=== PATIENT | male | born 1945 | race Caucasian/White ===

== ENCOUNTER → 2016-04-20 | Outpatient (CLI) | payer OTHER ==
[~2016-04-20] MED LIST: ASPI81TA28 PO; ATOR-26 PO; BIOFTAB30 PO; CARV12.5 PO; CITA20TA4 PO; INSU70IN2 SC; LEVO100T7 PO; LOSA100T26 PO; NTRSL3 UT
[2016-04-20 13:17] LABS: HEMATOCRIT 39.9 % (42-52); MEAN CELL VOLUME 86.4 fL (80-100); MEAN CORPUSCULAR HEMOGLOBIN 28.6 pg (25-34); MEAN CORPUSCULAR HGB CONC 33.1 g/dl (32-36); MEAN PLATELET VOLUME 10.9 fL (7.4-10.4); PLATELET COUNT 200 K/uL (130-400); RED BLOOD COUNT 4.62 M/uL (4.7-6.1); WHITE BLOOD COUNT 11.91 K/uL (4.8-10.8)
[2016-04-20 13:34] LABS: URINE APPEARANCE CLEAR (CLEAR); URINE BILIRUBIN NEG (NEG); URINE COLOR YELLOW; URINE EPITHELIAL CELL AUTO 0-5 /lpf (0-5); URINE NITRITE NEG (NEG); URINE PH 5.5 (4.5-7.5); URINE SPECIFIC GRAVITY 1.021 (1.000-1.030); UROBILINOGEN NEG (NEG)
[2016-04-20 13:39] LABS: MANUAL MICROSCOPIC REQUIRED? NO; REVIEW REQ? NO
[2016-04-20 13:51] LABS: URINE PROTIEN/CREAT RATIO 0.4 (0-0.2); URINE TOTAL PROTEIN 46.2 mg/dl (0-11.9)
[2016-04-20 14:25] LABS: BLOOD UREA NITROGEN 27 mg/dl (7-18); BUN/CREATININE RATIO 17.1 (10-20); CALCIUM 8.3 mg/dl (8.5-10.1); CARBON DIOXIDE 27 mmol/L (21-32); CHLORIDE 102 mmol/L (98-107); GLUCOSE 329 mg/dl (70-99); SODIUM 138 mmol/L (136-145)
[2016-04-20 14:33] LABS: PHOSPHORUS 1.9 mg/dl (2.5-4.9)
[2016-04-20 14:41] LABS: BETA-HYDROXYBUTYRATE 0.99 mg/dL (0.2-2.81)
== END | disposition home or self-care (01) ==
LOC: C.LABMFLN 10:39
PROVIDERS: ATTEND Internal Medicine Endocrinology, Diabetes & Metabolism
DX: E03.9 Hypothyroidism, unspecified (principal); D64.9 Anemia, unspecified; I12.9 Hypertensive chronic kidney disease with stage 1 through stage 4 chronic kidney disease, or unspecified chronic kidney disease; N18.3 Chronic kidney disease, stage 3 (moderate); R80.9 Proteinuria, unspecified; E55.9 Vitamin D deficiency, unspecified; N25.81 Secondary hyperparathyroidism of renal origin

== ENCOUNTER → 2016-07-08 | Outpatient (CLI) | payer OTHER ==
[~2016-07-08] MED LIST changes: -LOSA100T26 PO; +LOSA100T33 PO
[2016-07-08 17:42] LABS: BLOOD UREA NITROGEN 22 mg/dl (7-18); BUN/CREATININE RATIO 12.9 (10-20); CALCIUM 8.7 mg/dl (8.5-10.1); CARBON DIOXIDE 27 mmol/L (21-32); CHLORIDE 106 mmol/L (98-107); GLUCOSE 275 mg/dl (70-99); POTASSIUM 3.7 mmol/L (3.5-5.1); SODIUM 140 mmol/L (136-145)
[2016-07-08 17:53] LABS: CHOLESTEROL 119 mg/dl (0-200); CHOLESTEROL/HDL RATIO 2.9; HDL CHOLESTEROL 41 mg/dl; LDL CHOLESTEROL CALCULATED 55 mg/dl; TRIGLYCERIDES 116 mg/dl (0-150); VERY LOW DENSITY LIPOPROT CALC 23 mg/dl
[2016-07-09 05:56] LABS: ESTIMATED AVERAGE GLUCOSE 214 mg/dl; HA1C FLAG Normal (Normal)
== END | disposition home or self-care (01) ==
LOC: C.LABPVFM 15:21
PROVIDERS: ATTEND Family Medicine
DX: E11.21 Type 2 diabetes mellitus with diabetic nephropathy (principal); M21.371 Foot drop, right foot; E78.5 Hyperlipidemia, unspecified; E03.9 Hypothyroidism, unspecified

== ENCOUNTER → 2016-07-16 | Outpatient (CLI) | payer OTHER ==
--- NOTE | 2016-07-16 08:58 | DIAGNOSTIC IMAGING REPORT ---
DOUBLE CONTRAST UPPER GI SERIES CLINICAL HISTORY: Dysphagia. COMPARISON STUDY: No priors. TECHNIQUE: A standard air contrast upper GI series was performed. Spot images of the esophagus and stomach were obtained in multiple obliquities both upright and prone. FINDINGS: The patient swallowed barium without difficulty. The esophagus is structurally normal without evidence of intrinsic or extrinsic mass. The esophageal mucosal pattern is normal. No gastroesophageal reflux was elicited by having the patient perform the Valsalva maneuver. The gastroesophageal junction distends normally. Pacemaker leads are noted. The stomach is normal in configuration and demonstrates normal distensibility. No mass or ulceration is identified. There was no evidence of gastritis. The duodenal bulb and sweep are unremarkable. Fluoroscopy time: 2.5 minutes. Fluoroscopic images: 27 IMPRESSION: Normal fluoroscopic upper GI assessment. Electronically signed by: Leif Olsen M.D. 07/16/2016 8:56 AM Dictated Date/Time: 07/16/2016 8:55 AM
== END | disposition home or self-care (01) ==
LOC: C.RAD 07:49
PROVIDERS: ATTEND Family Medicine
DX: R13.10 Dysphagia, unspecified (principal)

== ENCOUNTER → 2016-10-09 | Outpatient (CLI) | payer OTHER ==
[~2016-10-09] MED LIST changes: +LOSA100T26 PO; -LOSA100T33 PO
[2016-10-09 13:14] LABS: HEMATOCRIT 39.1 % (42-52); MEAN CELL VOLUME 87.7 fL (80-100); MEAN CORPUSCULAR HEMOGLOBIN 29.4 pg (25-34); MEAN CORPUSCULAR HGB CONC 33.5 g/dl (32-36); MEAN PLATELET VOLUME 11.3 fL (7.4-10.4); PLATELET COUNT 175 K/uL (130-400); RED BLOOD COUNT 4.46 M/uL (4.7-6.1); WHITE BLOOD COUNT 9.64 K/uL (4.8-10.8)
[2016-10-09 13:38] LABS: BLOOD UREA NITROGEN 35 mg/dl (7-18); BUN/CREATININE RATIO 11.7 (10-20); CALCIUM 8.4 mg/dl (8.5-10.1); CARBON DIOXIDE 25 mmol/L (21-32); CHLORIDE 105 mmol/L (98-107); GLUCOSE 149 mg/dl (70-99); PHOSPHORUS 3.2 mg/dl (2.5-4.9); POTASSIUM 3.7 mmol/L (3.5-5.1); SODIUM 139 mmol/L (136-145)
== END | disposition home or self-care (01) ==
LOC: C.LABMFLN 09:03
PROVIDERS: ATTEND Internal Medicine Nephrology
DX: I12.9 Hypertensive chronic kidney disease with stage 1 through stage 4 chronic kidney disease, or unspecified chronic kidney disease (principal); D64.9 Anemia, unspecified; N18.3 Chronic kidney disease, stage 3 (moderate); R80.9 Proteinuria, unspecified; E55.9 Vitamin D deficiency, unspecified

== ENCOUNTER → 2016-10-12 | Outpatient (CLI) | payer OTHER ==
[2016-10-12 13:43] LABS: URINE PROTIEN/CREAT RATIO 0.5 (0-0.2); URINE TOTAL PROTEIN 33.9 mg/dl (0-11.9)
[2016-10-12 14:12] LABS: URINE APPEARANCE CLEAR (CLEAR); URINE BILIRUBIN NEG (NEG); URINE COLOR YELLOW; URINE NITRITE NEG (NEG); URINE PH 5.5 (4.5-7.5); URINE SPECIFIC GRAVITY 1.014 (1.000-1.030); UROBILINOGEN NEG (NEG)
[2016-10-12 14:18] LABS: MANUAL MICROSCOPIC REQUIRED? NO; REVIEW REQ? NO
== END | disposition home or self-care (01) ==
LOC: C.LABMFLN 08:29
PROVIDERS: ATTEND Internal Medicine Nephrology
DX: I12.9 Hypertensive chronic kidney disease with stage 1 through stage 4 chronic kidney disease, or unspecified chronic kidney disease (principal); D64.9 Anemia, unspecified; N18.3 Chronic kidney disease, stage 3 (moderate); R80.9 Proteinuria, unspecified; E55.9 Vitamin D deficiency, unspecified

== ENCOUNTER → 2016-10-15 | Outpatient (CLI) | payer OTHER ==
[2016-10-15 16:17] LABS: CHOLESTEROL/HDL RATIO 3.1; THYROID STIMULATING HORMONE 1.44 uIu/ml (0.300-4.500)
[2016-10-15 17:16] LABS: ESTIMATED AVERAGE GLUCOSE 246 mg/dl; HA1C FLAG Normal (Normal)
== END | disposition home or self-care (01) ==
LOC: C.LAB1850 14:43
PROVIDERS: ATTEND Physician Assistant
DX: E11.9 Type 2 diabetes mellitus without complications (principal)

== ENCOUNTER → 2016-12-25 | Outpatient (CLI) | payer OTHER ==
[2016-12-25 17:57] LABS: BLOOD UREA NITROGEN 32 mg/dl (7-18); BUN/CREATININE RATIO 13.8 (10-20); CALCIUM 7.9 mg/dl (8.5-10.1); CARBON DIOXIDE 26 mmol/L (21-32); CHLORIDE 105 mmol/L (98-107); GLUCOSE 191 mg/dl (70-99); POTASSIUM 3.5 mmol/L (3.5-5.1); SODIUM 139 mmol/L (136-145)
[2016-12-25 17:58] LABS: PHOSPHORUS 2.6 mg/dl (2.5-4.9)
== END | disposition home or self-care (01) ==
LOC: C.LABMFLN 12:54
PROVIDERS: ATTEND Internal Medicine Nephrology
DX: I10 Essential (primary) hypertension (principal); D64.9 Anemia, unspecified; R80.9 Proteinuria, unspecified; N25.81 Secondary hyperparathyroidism of renal origin; R31.9 Hematuria, unspecified

== ENCOUNTER → 2017-01-21 | Outpatient (CLI) | payer OTHER ==
--- NOTE | 2017-01-21 10:26 | DIAGNOSTIC IMAGING REPORT ---
(RENAL)RETROPERITON COMP HISTORY: 71 years-old Male I10 [id number] Stage III chronic kidney disea COMPARISON: Renal ultrasound 03/14/2013 TECHNIQUE: Multiple real-time sonographic images of the kidneys and urinary bladder were obtained assessing grayscale appearance and color flow FINDINGS: Study is limited secondary to body habitus. The right kidney measures 10.8 x 6.1 x 5.5 cm and is unremarkable as seen without hydronephrosis, renal calculi or focal mass. There is probable fatty infiltration of the liver is incidentally noted. Left kidney measures 11.1 x 7.4 x 5.0 cm and is also unremarkable without hydronephrosis, renal calculi or focal mass lesions identified.. Urinary bladder is unremarkable, not fully distended. IMPRESSION: 1. Limited study secondary to body habitus. 2. Kidneys and urinary bladder appear to be within normal limits without renal calculi or hydronephrosis. The above report was generated using voice recognition software. It may contain grammatical, syntax or spelling errors. Electronically signed by: Darshan Francis M.D. 01/21/2017 10:25 AM Dictated Date/Time: 01/21/2017 10:23 AM
== END | disposition home or self-care (01) ==
LOC: C.ULTR 09:24
PROVIDERS: ATTEND Internal Medicine Nephrology
DX: E55.9 Vitamin D deficiency, unspecified (principal); D64.9 Anemia, unspecified; I12.9 Hypertensive chronic kidney disease with stage 1 through stage 4 chronic kidney disease, or unspecified chronic kidney disease; N18.3 Chronic kidney disease, stage 3 (moderate); N25.81 Secondary hyperparathyroidism of renal origin; R80.9 Proteinuria, unspecified

== ENCOUNTER → 2017-02-16 | Outpatient (CLI) | payer OTHER ==
[~2017-02-16] MED LIST changes: -LOSA100T26 PO; +LOSA100T33 PO
[2017-02-16 18:00] LABS: HEMATOCRIT 36.7 % (42-52); MEAN CELL VOLUME 87.2 fL (80-100); MEAN CORPUSCULAR HEMOGLOBIN 29.2 pg (25-34); MEAN CORPUSCULAR HGB CONC 33.5 g/dl (32-36); MEAN PLATELET VOLUME 11.5 fL (7.4-10.4); PLATELET COUNT 213 K/uL (130-400); RED BLOOD COUNT 4.21 M/uL (4.7-6.1); WHITE BLOOD COUNT 8.27 K/uL (4.8-10.8)
[2017-02-16 18:07] LABS: URINE APPEARANCE CLEAR (CLEAR); URINE BILIRUBIN NEG (NEG); URINE COLOR YELLOW; URINE EPITHELIAL CELL AUTO 0-5 /lpf (0-5); URINE NITRITE NEG (NEG); URINE PH 5.5 (4.5-7.5); UROBILINOGEN NEG (NEG)
[2017-02-16 18:13] LABS: CREATININE, URINE 84.4 mg/dl; URINE PROTIEN/CREAT RATIO 0.3 (0-0.2); URINE TOTAL PROTEIN 21.9 mg/dl (0-11.9)
[2017-02-16 18:15] LABS: MANUAL MICROSCOPIC REQUIRED? NO; REVIEW REQ? NO
[2017-02-16 18:47] LABS: BLOOD UREA NITROGEN 23 mg/dl (7-18); BUN/CREATININE RATIO 13.2 (10-20); CALCIUM 8.3 mg/dl (8.5-10.1); CARBON DIOXIDE 26 mmol/L (21-32); CHLORIDE 102 mmol/L (98-107); CREATININE 1.78 mg/dl (0.60-1.40); GLUCOSE 365 mg/dl (70-99); MAGNESIUM 1.3 mg/dl (1.8-2.4); PHOSPHORUS 2.7 mg/dl (2.5-4.9); POTASSIUM 3.5 mmol/L (3.5-5.1); SODIUM 137 mmol/L (136-145)
[2017-02-16 19:00] LABS: BETA-HYDROXYBUTYRATE 0.94 mg/dL (0.2-2.81)
[2017-02-17 06:02] LABS: ESTIMATED AVERAGE GLUCOSE 237 mg/dl; HA1C FLAG Normal (Normal)
== END | disposition home or self-care (01) ==
LOC: C.LABMFLN 12:13
PROVIDERS: ATTEND Internal Medicine Nephrology
DX: E11.9 Type 2 diabetes mellitus without complications (principal); I12.9 Hypertensive chronic kidney disease with stage 1 through stage 4 chronic kidney disease, or unspecified chronic kidney disease; D64.9 Anemia, unspecified; N18.3 Chronic kidney disease, stage 3 (moderate); N25.81 Secondary hyperparathyroidism of renal origin; R80.9 Proteinuria, unspecified; E55.9 Vitamin D deficiency, unspecified

== ENCOUNTER → 2017-06-11 | Outpatient (CLI) | payer OTHER | END | disposition home or self-care (01) | LOC: C.LABMFLN 13:58 | PROVIDERS: ATTEND Physician Assistant | DX: E11.9 Type 2 diabetes mellitus without complications (principal) ==

== ENCOUNTER → 2017-08-12 | Outpatient (CLI) | payer OTHER ==
[2017-08-12 17:51] LABS: HEMATOCRIT 37.7 % (42-52); HEMOGLOBIN 12.1 g/dL (14.0-18.0); MEAN CELL VOLUME 86.7 fL (80-100); MEAN CORPUSCULAR HEMOGLOBIN 27.8 pg (25-34); MEAN CORPUSCULAR HGB CONC 32.1 g/dl (32-36); MEAN PLATELET VOLUME 10.3 fL (7.4-10.4); PLATELET COUNT 230 K/uL (130-400); RED CELL DISTRIBUTION WIDTH CV 13.5 % (11.5-14.5); WHITE BLOOD COUNT 9.06 K/uL (4.8-10.8)
[2017-08-12 18:36] LABS: ALBUMIN 3.2 gm/dl (3.4-5.0); BLOOD UREA NITROGEN 27 mg/dl (7-18); CALCIUM 8.5 mg/dl (8.5-10.1); CARBON DIOXIDE 28 mmol/L (21-32); CREATININE 1.71 mg/dl (0.60-1.40); GLUCOSE 110 mg/dl (70-99); PHOSPHORUS 2.9 mg/dl (2.5-4.9); POTASSIUM 3.5 mmol/L (3.5-5.1); SODIUM 140 mmol/L (136-145)
== END | disposition home or self-care (01) ==
LOC: C.LABMFLN 13:29
PROVIDERS: ATTEND Internal Medicine Nephrology
DX: I12.9 Hypertensive chronic kidney disease with stage 1 through stage 4 chronic kidney disease, or unspecified chronic kidney disease (principal); D64.9 Anemia, unspecified; N18.3 Chronic kidney disease, stage 3 (moderate); N25.81 Secondary hyperparathyroidism of renal origin; R31.9 Hematuria, unspecified; E55.9 Vitamin D deficiency, unspecified

== ENCOUNTER → 2017-08-20 | Outpatient (CLI) | payer OTHER | END | disposition home or self-care (01) | LOC: C.LAB1850 15:07 | PROVIDERS: ATTEND Internal Medicine Nephrology | DX: I12.9 Hypertensive chronic kidney disease with stage 1 through stage 4 chronic kidney disease, or unspecified chronic kidney disease (principal); N18.3 Chronic kidney disease, stage 3 (moderate); D64.9 Anemia, unspecified; N25.81 Secondary hyperparathyroidism of renal origin; R31.9 Hematuria, unspecified; E55.9 Vitamin D deficiency, unspecified ==

== ENCOUNTER 2021-05-28 16:48 | Inpatient (IN) ==
[2021-05-28] MEDS ORDERED: NovoLIN-R INSULIN PER UNIT CHARGE IV STA ×2 (17:33→22:13)
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
[2021-05-28 17:46] LABS: Basophils # (auto) 0.02 K/uL (0-0.2); Basophils % (auto) 0.2 %; Eosinophils % (auto) 3.5 %; Hematocrit (blood only) 39.8 % (42-52); Hemoglobin 13.3 g/dL (14.0-18.0); Immature Granulocytes # (auto) 0.02 K/uL (0.00-0.02); Immature Granulocytes % (auto) 0.2 %; Lymphocytes % (auto) 13.9 %; Mean Corpuscular Hemoglobin 29.2 pg (25-34); Mean Corpuscular Hgb Conc 33.4 g/dL (32-36); Mean Corpuscular Volume 87.3 fL (80-100); Mean Platelet Volume 11.6 fL (7.4-10.4); Monocytes # (auto) 0.45 K/uL (0.11-0.59); Monocytes % (auto) 5.2 %; Neutrophils # (auto) 6.67 K/uL (1.4-6.5); Platelet Count 237 K/uL (130-400); RDW Coefficient of Variation 13.3 % (11.5-14.5); RDW Standard Deviation 42.3 fL (36.4-46.3); Red Blood Count 4.56 M/uL (4.7-6.1); White Blood Count 8.66 K/uL (4.8-10.8)
[2021-05-28 18:07] LABS: Troponin I < 0.03 ng/ml (0-0.04)
[2021-05-28] MEDS: SODIUM CHLORIDE 0.9% 500 ML IV SCH (18:14)
[2021-05-28 18:16] LABS: iSTAT Creatinine 2.6 mg/dl (0.6-1.3); iSTAT Hemoglobin 12.6 g/dl (14.0-18.0); iSTAT Ionized Calcium 1.27 mmol/l (1.12-1.32); iSTAT Potassium 4.3 mmol/L (3.3-5.0)
[2021-05-28 18:30] LABS: Alanine Aminotransferase 15 U/L (7-52); Albumin Globulin Ratio 1.3 (0.9-2); Alkaline Phosphatase 91 U/L (34-104); Anion Gap 15 (3-11); Aspartate Aminotransferase 17 U/L (13-39); BUN Creatinine Ratio 13.8 (10-20); Bilirubin,Total 0.5 mg/dl (0.2-1.0); Blood Urea Nitrogen 40 mg/dl (6-23); Calcium 9.9 mg/dl (8.5-10.1); Carbon Dioxide 21 mmol/L (21-32); Chloride 96 mmol/L (98-107); Creatinine Clr Calc Pharmacy 32.1 ml/min; Est GFR (African American) 23.6 ml/min; Est GFR (Non-African American) 20.4 ml/min; Globulin 3.2 gm/dl (2.5-4.0); Glucose 645 mg/dl (70-99(Fasting)); Potassium 4.2 mmol/L (3.5-5.1); Sodium 132 mmol/L (136-145); Total Protein 7.2 gm/dl (6.0-8.3)
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
[2021-05-28 20:21] LABS: Base Excess VBG -0.7 mEq/L; HCO3 VBG 26 mmol/L; Oxygen Saturation VBG < 60.0 %; PCO2 VBG 51 mmHg (38-50); PO2 VBG 28 mmHg; pH VBG 7.33 (7.36-7.41)
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
[2021-05-28] MEDS ORDERED: NovoLIN-R INSULIN PER UNIT CHARGE ONE (22:23)
[2021-05-28] MEDS ORDERED: DC ALL PREVIOUSLY ORDERED DIABETES MEDS ONE (23:19)
[2021-05-28] MEDS ORDERED: LIDOCAINE 5% 1 PATCH TD PRN (23:19)
[2021-05-28] MEDS ORDERED: GLUCOSE 40% GEL 15 GM TUBE PO PRN (23:19)
[2021-05-28] MEDS ORDERED: POLYETHYLENE (MIRALAX) 17 GM PACK PO PRN (23:19)
[2021-05-28] MEDS ORDERED: GLUCOSE 10 TABS/TUBE PO PRN (23:19)
[2021-05-28] MEDS ORDERED: PHARMACY GLYCEMIC MGMT CONSULT PRN (23:19)
[2021-05-28] MEDS ORDERED: GLUCAGON FOR INJ 1 MG VIAL SQ PRN (23:19)
[2021-05-28] MEDS ORDERED: CARBOHYDRATES FOR HYPOGLYCEMIA PO PRN (23:19)
[2021-05-28] MEDS ORDERED: PANTOprazole 40 MG TAB PO PRN (23:19)
[2021-05-28] MEDS ORDERED: DEXTROSE 50% 50 ML SYRINGE IV PRN (23:19)
[2021-05-28] MEDS ORDERED: NITROGLYCERIN SL 0.4 MG/TAB TAB SL PRN (23:38)
[2021-05-28] MEDS ORDERED: INSULIN GLARGINE SOLOSTAR 100 UNITS/ML 3 ML PEN SC ONE (23:45)
[2021-05-29] MEDS: NITROGLYCERIN SL 0.4 MG/TAB TAB SL SCH ×2 (00:01)
[2021-05-29] MEDS: ACETAMINOPHEN 325 MG TAB PO PRN ×3 (00:11→09:38)
[2021-05-29] MEDS: INSULIN ASPART PER UNIT SC SCH ×6 (00:15→20:41)
[2021-05-29] MEDS: SODIUM CHLORIDE 0.9% 1,000 ML IV SCH ×3 (00:15→23:45)
[2021-05-29] MEDS: SODIUM CHLORIDE 0.9% 500 ML IV SCH (00:39)
[2021-05-29] MEDS: LEVOTHYROXINE SODIUM 100 MCG TABLET PO SCH (04:24)
[2021-05-29 07:32] LABS: Basophils # (auto) 0.02 K/uL (0-0.2); Basophils % (auto) 0.2 %; Eosinophils # (auto) 0.11 K/uL (0-0.5); Eosinophils % (auto) 1.2 %; Hematocrit (blood only) 33.9 % (42-52); Hemoglobin 11.7 g/dL (14.0-18.0); Immature Granulocytes # (auto) 0.02 K/uL (0.00-0.02); Immature Granulocytes % (auto) 0.2 %; Lymphocytes # (auto) 1.16 K/uL (1.2-3.4); Lymphocytes % (auto) 12.4 %; Mean Corpuscular Hemoglobin 29.4 pg (25-34); Mean Corpuscular Hgb Conc 34.5 g/dL (32-36); Mean Corpuscular Volume 85.2 fL (80-100); Mean Platelet Volume 10.3 fL (7.4-10.4); Monocytes # (auto) 0.57 K/uL (0.11-0.59); Monocytes % (auto) 6.1 %; Neutrophils # (auto) 7.48 K/uL (1.4-6.5); Neutrophils % (auto) 79.9 %; Platelet Count 183 K/uL (130-400); RDW Coefficient of Variation 13.3 % (11.5-14.5); RDW Standard Deviation 41.2 fL (36.4-46.3); Red Blood Count 3.98 M/uL (4.7-6.1); White Blood Count 9.36 K/uL (4.8-10.8)
[2021-05-29 07:55] LABS: BUN Creatinine Ratio 16.9 (10-20); Calcium 9.5 mg/dl (8.5-10.1); Creatinine Clr Calc Pharmacy 40.3 ml/min; Est GFR (African American) 33.2 ml/min; Est GFR (Non-African American) 28.6 ml/min; Potassium 3.2 mmol/L (3.5-5.1)
--- NOTE | 2021-05-29 08:19 | Ultrasound Report ---
BILATERAL CAROTID DOPPLER STUDY HISTORY: syncope COMPARISON: None. TECHNIQUE: Real-time, grayscale, and color Doppler sonography of the carotid arteries was performed. Imaging reviewed in the transverse and longitudinal planes. All measurements were calculated based on NASCET criteria. FINDINGS: Antegrade flow is seen in the bilateral vertebral arteries. The brachial pressures are hemodynamically similar. Minimal calcified plaque within the bilateral carotid bifurcations. The peak systolic velocity within the right ICA is 77 cm/s. The right systolic ratio is 1.3. The peak systolic velocity within the left ICA is 68 cm/s. The left systolic ratio is 0.7. IMPRESSION: No hemodynamically significant stenosis seen within the carotid arteries. ACT 112: Negative or not required by law. Electronically signed by: Damon Davies M.D. 05/29/2021 8:18 AM
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
[2021-05-29] MEDS: ASPIRIN 81 MG ECTAB PO SCH (09:11)
[2021-05-29] MEDS: ATORVASTATIN 40 MG TAB PO SCH (09:11)
[2021-05-29] MEDS: AMOXICILLIN 500 MG CAP PO SCH ×3 (09:11→20:49)
[2021-05-29] MEDS: SERTRALINE HCL 50 MG TABLET PO SCH (09:12)
[2021-05-29] MEDS: MAGNESIUM OXIDE 400 MG TAB PO SCH ×2 (09:12→20:48)
[2021-05-29] MEDS: TERAZOSIN HCL 5 MG CAP PO SCH ×2 (09:12→20:50)
[2021-05-29] MEDS: CALCITRIOL 0.25 MCG CAPSULE PO SCH (09:12)
[2021-05-29] MEDS: INSULIN GLARGINE SOLOSTAR 100 UNITS/ML 3 ML PEN SC SCH (09:13)
[2021-05-29] MEDS: carvediloL 12.5 MG TAB PO SCH ×2 (09:13→20:48)
[2021-05-29] MEDS: ENOXAPARIN INJ 40 MG/0.4 ML SYR SQ SCH (09:28)
[2021-05-29] MEDS: POTASSIUM CHLORIDE CRTAB 20 MEQ TABCR PO SCH (09:28)
--- NOTE | 2021-05-29 11:22 | Electrocardiogram Report ---
Test Reason : Blood Pressure : / mmHG Vent. Rate : 079 BPM Atrial Rate : 079 BPM P-R Int : 188 ms QRS Dur : 210 ms QT Int : 478 ms P-R-T Axes : 023 -82 080 degrees QTc Int : 548 ms Atrial-sensed ventricular-paced rhythm Abnormal ECG No previous ECGs available Confirmed by River Penny ([id number]) on 05/29/2021 11:21:46 AM Referred By: REFERRED SELF Confirmed By:Lucas Penny
--- NOTE | 2021-05-29 13:18 | XCELERA ---
[id number] \\[id number]_[id number]}___[id number]
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
--- NOTE | 2021-05-29 19:13 | Billing Data ---
Date of Service May 28, 2021 Coding Level of Care Code 19362 Initial Inpt Care Lvl 3
[2021-05-29] MEDS ORDERED: GABAPENTIN 100 MG CAP PO SCH (21:00)
[2021-05-29] MEDS ORDERED: INSULIN GLARGINE SOLOSTAR 100 UNITS/ML 3 ML PEN SC SCH (21:00)
[2021-05-30] MEDS: ACETAMINOPHEN 325 MG TAB PO PRN (00:18)
[2021-05-30] MEDS: LEVOTHYROXINE SODIUM 100 MCG TABLET PO SCH (06:13)
[2021-05-30 06:35] LABS: Estimated Average Glucose 301 mg/dl; Hemoglobin A1C 12.1 % (4.5-5.6)
[2021-05-30 06:56] LABS: BUN Creatinine Ratio 16.7 (10-20); Calcium 9.3 mg/dl (8.5-10.1); Creatinine Clr Calc Pharmacy 40.9 ml/min; Est GFR (African American) 33.7 ml/min; Est GFR (Non-African American) 29.1 ml/min; Potassium 3.5 mmol/L (3.5-5.1)
[2021-05-30] MEDS: AMOXICILLIN 500 MG CAP PO SCH ×2 (08:53→13:47)
[2021-05-30] MEDS: POTASSIUM CHLORIDE CRTAB 20 MEQ TABCR PO SCH (08:53)
[2021-05-30] MEDS: ASPIRIN 81 MG ECTAB PO SCH (08:53)
[2021-05-30] MEDS: carvediloL 12.5 MG TAB PO SCH (08:54)
[2021-05-30] MEDS: MAGNESIUM OXIDE 400 MG TAB PO SCH (08:54)
[2021-05-30] MEDS: ATORVASTATIN 40 MG TAB PO SCH (08:54)
[2021-05-30] MEDS: SERTRALINE HCL 50 MG TABLET PO SCH (08:54)
[2021-05-30] MEDS: CALCITRIOL 0.25 MCG CAPSULE PO SCH (08:55)
[2021-05-30] MEDS: INSULIN GLARGINE SOLOSTAR 100 UNITS/ML 3 ML PEN SC SCH (08:56)
[2021-05-30] MEDS: INSULIN ASPART PER UNIT SC SCH ×2 (08:56→12:11)
[2021-05-30] MEDS: ENOXAPARIN INJ 40 MG/0.4 ML SYR SQ SCH (08:57)
[2021-05-30] MEDS: DICLOFENAC SOD 1% GEL 100 GM TUBE EXT SCH ×2 (09:00→12:11)
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
[2021-05-30] MEDS: SODIUM CHLORIDE 0.9% 1,000 ML IV SCH (13:43)
== END 2021-05-30 14:42 | disposition home health service (06) | DRG 312 ==
LOC: ED 16:48 → SUATTDRO 21:43 → 2N 21:43
DX: Z98.890 Other specified postprocedural states; Z87.891 Personal history of nicotine dependence; E11.22 Type 2 diabetes mellitus with diabetic chronic kidney disease; E78.5 Hyperlipidemia, unspecified; N18.30 Chronic kidney disease, stage 3 unspecified; R07.81 Pleurodynia; Z79.890 Hormone replacement therapy; K08.409 Partial loss of teeth, unspecified cause, unspecified class; Z63.4 Disappearance and death of family member; Z91.14 Patient's other noncompliance with medication regimen; E11.65 Type 2 diabetes mellitus with hyperglycemia; Z79.82 Long term (current) use of aspirin; Z79.2 Long term (current) use of antibiotics; R91.8 Other nonspecific abnormal finding of lung field; Z88.5 Allergy status to narcotic agent; Z20.822 Contact with and (suspected) exposure to COVID-19; Z88.1 Allergy status to other antibiotic agents; V47.0XXA Car driver injured in collision with fixed or stationary object in nontraffic accident, initial encounter; N17.9 Acute kidney failure, unspecified; G89.11 Acute pain due to trauma; Y92.410 Unspecified street and highway as the place of occurrence of the external cause; F32.9 Major depressive disorder, single episode, unspecified; T38.3X6A Underdosing of insulin and oral hypoglycemic [antidiabetic] drugs, initial encounter; Z95.0 Presence of cardiac pacemaker; Z79.4 Long term (current) use of insulin; I50.9 Heart failure, unspecified; Z86.73 Personal history of transient ischemic attack (TIA), and cerebral infarction without residual deficits; I13.0 Hypertensive heart and chronic kidney disease with heart failure and stage 1 through stage 4 chronic kidney disease, or unspecified chronic kidney disease; R55 Syncope and collapse; Z79.899 Other long term (current) drug therapy; E03.9 Hypothyroidism, unspecified; D63.1 Anemia in chronic kidney disease; Z91.128 Patient's intentional underdosing of medication regimen for other reason

== ENCOUNTER 2023-12-10 17:46 | Inpatient (IN) ==
[2023-12-10 19:43] LABS: Basophils # (auto) 0.05 K/uL (0.00-0.20); Basophils % (auto) 0.3 %; Eosinophils # (auto) 0.44 K/uL (0.00-0.50); Eosinophils % (auto) 2.4 %; Hematocrit (blood only) 37.8 % (42.0-52.0); Hemoglobin 12.1 g/dl (14.0-18.0); Immature Granulocytes # (auto) 0.13 K/uL (0.01-0.20); Immature Granulocytes % (auto) 0.7 %; Lymphocytes # (auto) 0.73 K/uL (1.20-3.40); Mean Corpuscular Hemoglobin 27.1 pg (25.0-34.0); Mean Corpuscular Volume 84.6 fL (80.0-100.0); Mean Platelet Volume 10.4 fL (9.4-12.4); Monocytes # (auto) 1.02 K/uL (0.11-0.59); Monocytes % (auto) 5.6 %; Neutrophils # (auto) 15.98 K/uL (1.40-6.50); Platelet Count 266 K/uL (130-400); RDW Coefficient of Variation 13.8 % (11.5-14.5); RDW Standard Deviation 42.7 fL (36.4-46.3); Red Blood Count 4.47 M/uL (4.70-6.10); White Blood Count 18.35 K/ul (4.8-10.8)
[2023-12-10 20:00] LABS: Alanine Aminotransferase 21 U/L (7-52); Albumin Globulin Ratio 0.9 (0.9-2); Albumin Level 3.7 gm/dl (3.4-5.0); Alkaline Phosphatase 148 U/L (34-104); Anion Gap 10 (3-11); Aspartate Aminotransferase 36 U/L (13-39); BUN Creatinine Ratio 10.7 (10-20); Bilirubin,Total 0.7 mg/dl (0.2-1.0); Blood Urea Nitrogen 26 mg/dl (6-23); Calcium 9.6 mg/dl (8.6-10.3); Carbon Dioxide 24 mmol/L (21-32); Chloride 101 mmol/L (98-107); Est GFR (African American) 28.8 ml/min; Est GFR (Non-African American) 24.9 ml/min; Globulin 4.1 gm/dl (2.5-4.0); Glucose 143 mg/dl (70-99(Fasting)); Potassium 3.8 mmol/L (3.5-5.1); Sodium 135 mmol/L (136-145); Total Protein 7.8 gm/dl (6.0-8.3)
[2023-12-10 20:06] LABS: INR 1.1 (0.9-1.1); Prothrombin Time 12.2 Seconds (9.0-12.0)
[2023-12-10] MEDS: cefTRIAXone SODIUM 2,000 MG/50 ML BAG IV STA (20:15)
--- NOTE | 2023-12-10 20:35 | Emergency Department Note ---
Impression & Plan Cellulitis of scalp, Scalp abscess ED Provider Note ED Provider Note NAME: FIDELIA SERRANO AGE:78 SEX: Male : 1945 ARRIVES VIA: Private vehicle INFORMANT: Patient ED PROVIDER(s): Alycia Almendarez DO CHIEF COMPLAINT: Scalp infection HPI: This is a 78-year-old male presents emerged apartment due to concern for worsening wound and possible infection to the scalp, as well as increased fatigue/weakness and decreased appetite as noted by family. Patient states he was seen here several days ago and told the abnormality to his scalp was likely ringworm. He was prescribed an antifungal. Family states over the next several days this area appeared worse, began to drain, and was increasingly red. They also noted that the patient seemed more tired and fatigued, and had a decreased appetite. Family was concerned he was not acting himself additionally. No trauma or injuries. Patient is a diabetic. PAST MEDICAL HISTORY:See Below PAST SURGICAL HISTORY:See Below FAMILY HISTORY:See Below SOCIAL HISTORY:See Below HOME MEDICATIONS:See Below ALLERGIES:See Below VITALS:See Below PHYSICAL EXAMINATION: GENERAL: alert, well appearing, well nourished, no distress, non-toxic, BMI 35 HEAD: Erythematous, edematous area noted to left occipital region with small area of central fluctuance and active spontaneous drainage of purulent material, surrounding induration and erythema noted, no other evidence of trauma, no active bleeding; wound culture obtained during my exam EYE EXAM: normal conjunctiva, PERRL and EOM's grossly intact OROPHARYNX: no exudate, no erythema, lips, buccal mucosa, and tongue normal and mucous membranes are moist NECK: supple, no nuchal rigidity, no adenopathy, non-tender LUNGS: Clear to auscultation. Normal chest wall mechanics, no w/r/r HEART: no murmurs, S1 normal and S2 normal ABDOMEN: abdomen soft, non-tender, normo-active bowel sounds, no masses, no rebound or guarding. SKIN: no rashes, petechiae, orbruising UPPER EXTREMITIES: upper extremities are grossly normal. FROM, nml pulses b/l. LOWER EXTREMITIES: Chronic appearing pitting edema. FROM, nml pulses b/l. NEURO EXAM: Normal sensorium, cranial nerves II-XII grossly intact, normal speech, no facial droop,nogross weakness of arms, no gross weakness of legs. Gross sensation intact. No ataxia. Vital Signs: reviewed and remarkable Differential Diagnosis: Cellulitis, abscess, intracranial abscess, fungal infection, sepsis, JUANPABLO, as well as others were considered MEDICAL DECISION MAKING: This is a 78-year-old male brought in by family due to concern for worsening infection along the patient's scalp as well as accompanying systemic symptoms including fatigue, confusion, and decreased appetite. On arrival here patient oriented although family states he is not acting in his usual manner. He was afebrile vital signs stable. After evaluation in room D8 as he presented on day of high volume and acuity, he was eventually moved to an additional room. Labs drawn and sent, IV established, patient was monitored on telemetry. He was sent for CT of the head additionally. No intracranial extension noted. Patient started on IV antibiotics. Patient noted to have a leukocytosis, given advanced age, diabetic status, evidence of evolving infection, and leukocytosis, we discussed additional inpatient management evaluation especially in light of family's concern for possible change in the patient's behavior and mentation. Patient was able to answer questions appropriately here. Patient noted to have abnormal creatinine however this is stable compared to prior and patient does have a history of CKD. Mild hyperglycemia noted, no evidence for DKA. Case discussed with the hospitalist team for additional evaluation and management. Consultation(s): 2214: Discussed with Dr. Martell, [facility]ST hospitalist team, for additional evaluation and mgmt. ER Treatment Provided: See below Diagnostics Interpreted By Me: -ECG: Sinus tachycardia at 80, leftward axis, normal intervals, nonspecific ST/T wave changes -Cardiac Monitoring: An order was placed for continuous cardiac monitoring. The monitor shows a rate of 80 with normal sinus rhythm. -Laboratory studies: As stated above and show below. -Imaging studies: CT head: no ICH Triage Nursing Note Reviewed Prior/Outside Records Reviewed Past Med/Surg History Problem List Scalp abscess (Acute) Cellulitis of scalp (Acute) Tinea capitis (Acute) Right otitis media Finger pain, left Encounter for screening colonoscopy Toe injury Traumatic loss of toenail of right great toe Vitamin D deficiency Bilateral pulmonary embolism Lumbar back pain with radiculopathy affecting left lower extremity Albuminuria Hypertension Diabetes type 2, uncontrolled Pulmonary nodule Sleep apnea (Chronic) Secondary hyperparathyroidism (Chronic) Morbid obesity (Chronic) Lumbar spinal stenosis (Chronic) Hypothyroidism (Chronic) Dyslipidemia (Chronic) Dysesthesia (Chronic) Diabetic peripheral 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) Depression (Chronic) Chronic reflux esophagitis (Chronic) Cardiac pacemaker (Chronic) CHF (congestive heart failure) (Chronic) Arteriosclerotic cardiovascular disease (Chronic) Anemia (Chronic) Chronic kidney disease, stage III (moderate) Background diabetic retinopathy associated with type 2 diabetes mellitus Hypomagnesemia Chronic anemia (Acute) Medical History Acute respiratory failure JUANPABLO (acute kidney injury) Colon polyps Elevated transaminase level Hematuria Tinea pedis of both feet Vitamin D deficiency Surgical History History of colonoscopy History of tonsillectomy History of mandibular surgery History of cholecystectomy History of coronary artery stent placement History of cardiac cath History of cataract surgery Family History Father Lung cancer Brother Lung disease Lung cancer Denies family history of Ovarian cancer Prostate cancer Myocardial infarction Breast cancer Colorectal cancer Social History Smoking Status: Never smoker Tobacco Type: Cigarettes and Pipe Age Started Using Tobacco: 20; Age Quit Using Tobacco: 21; Cigarettes Per Day: 15; Second Hand Exposure: Yes; Do You Dip or Chew Tobacco: No; Hx Alcohol Use: Yes Alcohol type: beer Alcohol Intake Frequency: Monthly or Less Alcohol Intake Frequency Comment: Socially Hx Substance Use: No Preferred Language: Belarusian Communication Ability: Effective Visual Impairment: No Limitations Hearing Ability: Use of Hearing Aid Manager Public Required: No Beliefs That Will Affect Care: None marital status: / Current Living Situation: Personal Care Facility current occupational status: retired 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 How many Children do You have: 2 Feels Safe at Home: Yes Safety Concerns: Feels Safe At This Time Childhood Exposure to Second-Hand Smoke: No Diet: regular Diet Comment: Regular Diet caffeine: No during the past year weight has: remained stable Dental Care, Regularly: No Physical Activity Frequency: Does not Exercise Seatbelt Use: sometimes Sunscreen Use: No Assistive Devices: Hearing Aid - Bilateral, Walker and Wheelchair Allergies Allergies Allergy/AdvReac Type Severity Reaction Status Date / Time cefaclor AdvReac Intermediate RASH Verified 07/29/23 11:35 oxycodone AdvReac Intermediate "I GET ALL Verified 07/29/23 11:35 GOOFY" Home Meds Home Medications Medication Instructions Recorded Confirmed sharps container-insulin syringe ##1 10/05/18 07/29/23 and needle 1 mL 30 gauge x 5/16" acetaminophen 325 mg capsule 650 mg PO TID PRN Pain 02/13/20 12/11/23 (Tylenol) clotrimazole 1 % topical cream 1 applic topical BID PRN Skin 03/17/21 12/11/23 (Lotrimin AF (clotrimazole)) Irritation aspirin 81 mg tablet,delayed 81 mg PO QAM 05/28/21 12/11/23 release flash glucose scanning reader 07/04/21 07/29/23 (Coupay Maisha 2 [place]) lancets 30 gauge (OneTouch Delica 07/04/21 07/29/23 Plus Lancet) insulin degludec 100 unit/mL (3 40 unit subcut DAILY 11/11/23 12/11/23 mL) subcutaneous pen (Tresiba FlexTouch U-100 insulin) insulin lispro 100 unit/mL 1 sliding scale dose subcut 11/11/23 12/11/23 subcutaneous pen (Admelog SoloStar USEASDIRECTD U-) nitroglycerin 0.4 mg sublingual 0.4 mg sublingual Q5M PRN Chest 11/11/23 12/11/23 tablet Pain ondansetron 4 mg disintegrating 4 mg PO Q8H PRN Nausea And Vomiting 11/11/23 12/11/23 tablet pantoprazole 40 mg tablet,delayed 40 mg PO DAILY 11/11/23 12/11/23 release polyethylene glycol 3350 17 17 g PO DAILY 11/11/23 12/11/23 gram/dose oral powder (Miralax) potassium chloride 20 mEq 20 meq PO DAILY 11/11/23 12/11/23 tablet,extended release empagliflozin 25 mg tablet 25 mg PO DAILY 12/11/23 12/11/23 (Jardiance) levothyroxine 100 mcg tablet 100 mcg PO DAILY 09/07/24 09/07/24 losartan 100 mg tablet 100 mg PO DAILY 12/11/23 12/11/23 metoprolol succinate 25 mg 25 mg PO BID 12/11/23 12/11/23 tablet,extended release 24 hr tirzepatide 5 mg/0.5 mL 5 mg subcut WK 12/11/23 12/11/23 subcutaneous pen injector (Keyla) Previous Rx's Medication Instructions Recorded flash glucose sensor (FreeStyle #2 ea 07/09/21 Maisha 2 Sensor kit) mupirocin 2 % topical ointment 1 applic topical BID #22 grams 04/16/22 pen needle, diabetic 32 gauge x #100 ea 05/27/22 1/" (BD Ultra-Fine Micro Pen Needle) furosemide 20 mg tablet 20 mg PO DAILY #90 tabs 08/28/22 magnesium oxide 400 mg (241.3 mg See Rx Instructions .Route 12/06/22 magnesium) tablet .COMPLEX #180 tabs apixaban 5 mg tablet (Eliquis) 5 mg PO BID #180 tabs 04/28/23 atorvastatin 80 mg tablet 80 mg PO DAILY #90 tabs 04/28/23 terazosin 10 mg capsule 10 mg PO DAILY #90 caps 04/28/23 gabapentin 300 mg capsule 300 mg PO DAILY #30 caps 05/06/23 calcitriol 0.5 mcg capsule 0.5 mcg PO DAILY #180 caps 07/06/23 sertraline 50 mg tablet 75 mg (1.5 x 50 mg) PO DAILY #135 08/06/23 tabs ketoconazole 2 % shampoo 1 applic topical TID 2 weeks #120 12/08/23 mL Results & Data (ED) Vital Signs Vital Signs - 24 hr 12/10/23 20:20 12/10/23 22:23 Pulse Rate [Apical] 85 90 Respiratory Rate 20 18 Respiratory Effort / Characteristics Non-Labored Spontaneous Respiratory Depth Normal Respiratory Pattern Regular Blood Pressure [Right Arm] 136/73 115/80 Blood Pressure Mean [Right Arm] 94 91 Blood Pressure Position [Right Arm] Lying Pulse Oximetry 95 98 Oxygen Delivery Method Room Air Room Air Laboratory Data 12/11/23 19:02 12/11/23 06:10 Lab Results 12/10/23 Range/Units 19:15 WBC 18.35 H (4.8-10.8) K/ul RBC 4.47 L (4.70-6.10) M/uL Hgb 12.1 L (14.0-18.0) g/dl Hct 37.8 L (42.0-52.0) % MCV 84.6 (80.0-100.0) fL MCH 27.1 (25.0-34.0) pg MCHC 32.0 (32.0-36.0) g/dL RDW Std Deviation 42.7 (36.4-46.3) fL RDW Coeff of Rito 13.8 (11.5-14.5) % Plt Count 266 (130-400) K/uL MPV 10.4 (9.4-12.4) fL Immature Gran % (Auto) 0.7 % Neut % (Auto) 87.0 % Lymph % (Auto) 4.0 % [place] % (Auto) 5.6 % Eos % (Auto) 2.4 % Baso % (Auto) 0.3 % Neut # (Auto) 15.98 H (1.40-6.50) K/uL Lymph # (Auto) 0.73 L (1.20-3.40) K/uL [place] # (Auto) 1.02 H (0.11-0.59) K/uL Eos # (Auto) 0.44 (0.00-0.50) K/uL Baso # (Auto) 0.05 (0.00-0.20) K/uL Immature Gran # (Auto) 0.13 (0.01-0.20) K/uL PT 12.2 H (9.0-12.0) Seconds INR 1.1 (0.9-1.1) Sodium 135 L (136-145) mmol/L Potassium 3.8 (3.5-5.1) mmol/L Chloride 101 (98-107) mmol/L Carbon Dioxide 24 (21-32) mmol/L Anion Gap 10 (3-11) BUN 26 H (6-23) mg/dl Creatinine 2.43 H (0.6-1.4) mg/dl Est Cr Clr Drug Dosing Not Reportable Est GFR ( Amer) 28.8 ml/min Est GFR (Non-Af Amer) 24.9 ml/min BUN/Creatinine Ratio 10.7 (10-20) Glucose 143 H (70-99(Fasting)) mg/dl Estimat Average Glucose 203 mg/dl Hemoglobin A1c 8.7 H (4.5-5.6) % Calcium 9.6 (8.6-10.3) mg/dl Total Bilirubin 0.7 (0.2-1.0) mg/dl AST 36 (13-39) U/L ALT 21 (7-52) U/L Alkaline Phosphatase 148 H (34-104) U/L Total Protein 7.8 (6.0-8.3) gm/dl Albumin 3.7 (3.4-5.0) gm/dl Globulin 4.1 H (2.5-4.0) gm/dl Albumin/Globulin Ratio 0.9 (0.9-2) Procalcitonin 0.38 (0-0.5) ng/ml TSH 1.131 (0.300-4.500) uIu/ml Administered Medications Acetaminophen (Acetaminophen 325 Mg Tab) 650 mg PO Q4H PRN PRN Reason: pain/fever Stop: 01/10/24 02:28 Last Admin: 12/11/23 17:47 Dose: 650 mg Documented By: MARIA ALEJANDRA Admin: 12/11/23 12:37 Dose: 650 mg Documented By: Admin: 12/11/23 02:39 Dose: 650 mg Documented By: JERSEY Apixaban (Apixaban 5 Mg Tablet) 5 mg PO BID [facility] Stop: 01/10/24 02:44 Last Admin: 12/11/23 08:30 Dose: 5 mg Documented By: MARIA ALEJANDRA Admin: 12/11/23 03:38 Dose: 5 mg Documented By: JERSEY Aspirin (Aspirin 81 Mg Ectab) 81 mg PO DAILY DARREN Stop: 01/10/24 08:59 Last Admin: 12/11/23 08:29 Dose: 81 mg Documented By: MARIA ALEJANDRA Calcitriol (Calcitriol 0.25 Mcg Capsule) 0.5 mcg PO DAILY DARREN Stop: 01/10/24 08:59 Last Admin: 12/11/23 08:28 Dose: 0.5 mcg Documented By: MARIA ALEJANDRA Gabapentin (Gabapentin 300 Mg Cap) 300 mg PO DAILY DARREN Stop: 01/10/24 08:59 Last Admin: 12/11/23 08:28 Dose: 300 mg Documented By: MARIA ALEJANDRA HCTZ/Losartan Potassium (Losartan/Hctz 50/12.5mg Tab) 1 tab PO DAILY DARREN Stop: 01/10/24 08:59 Last Admin: 12/11/23 08:40 Dose: 1 tab Documented By: MARIA ALEJANDRA Sodium Chloride (Nss) 1,000 mls @ 125 mls/hr IV .Q8H [facility] Stop: 01/09/24 22:29 Last Admin: 12/11/23 14:59 Dose: 125 mls/hr Documented By: MARIA ALEJANDRA Infusion: 12/11/23 14:59 Dose: Infused Documented By: MARIA ALEJANDRA Infusion: 12/11/23 13:31 Dose: 0 mls/hr Documented By: MARIA ALEJANDRA Admin: 12/11/23 06:19 Dose: 125 mls/hr Documented By: Infusion: 12/11/23 06:19 Dose: Infused Documented By: Admin: 12/10/23 23:11 Dose: 125 mls/hr Documented By: Daptomycin 350 mg/ Syringe 7 mls @ 3.5 mls/min IV Q24H DARREN; Protocol Stop: 12/18/23 03:29 Last Admin: 12/11/23 03:38 Dose: 3.5 mls/min Documented By: JERSEY Insulin Aspart (Insulin Aspart Per Unit Charge) 0 units SC ACHS DARREN Stop: 01/10/24 07:29 Last Admin: 12/11/23 17:48 Dose: 2 units Documented By: MARIA ALEJANDRA Co-signed By: THEO Admin: 12/11/23 13:34 Dose: 2 units Documented By: MARIA ALEJANDRA Co-signed By: THEO Admin: 12/11/23 08:35 Dose: Not Given Documented By: MARIA ALEJANDRA Insulin Glargine (Lantus Per Unit Charge) 25 units SQ DAILY DARREN Stop: 01/10/24 08:59 Last Admin: 12/11/23 08:39 Dose: 25 units Documented By: MARIA ALEJANDRA Co-signed By: ESE Levothyroxine Sodium (Levothyroxine Sodium 112 Mcg Tablet) 112 mcg PO DAILYBB [facility] Stop: 01/10/24 06:29 Last Admin: 12/11/23 06:18 Dose: 112 mcg Documented By: JERSEY Magnesium Oxide (Magnesium Oxide 400 Mg Tab) 400 mg PO BID DARREN Stop: 01/10/24 08:59 Last Admin: 12/11/23 08:29 Dose: 400 mg Documented By: MARIA ALEJANDRA Metoprolol Succinate (Metoprolol Succ 50mg Ext Rel Tab) 50 mg PO BID DARREN Stop: 01/10/24 02:28 Last Admin: 12/11/23 08:36 Dose: Not Given Documented By: MARIA ALEJANDRA Admin: 12/11/23 03:38 Dose: 50 mg Documented By: JERSEY Pantoprazole Sodium (Pantoprazole 40 Mg Tab) 40 mg PO DAILY DARREN Stop: 01/10/24 08:59 Last Admin: 12/11/23 08:29 Dose: 40 mg Documented By: MARIA ALEJANDRA Potassium Chloride (Potassium Chloride Crtab 20 Meq Tabcr) 20 meq PO DAILY DARREN Stop: 01/10/24 08:59 Last Admin: 12/11/23 08:40 Dose: 20 meq Documented By: MARIA ALEJANDRA Sertraline HCl (Sertraline Hcl 50 Mg Tablet) 75 mg PO DAILY DARREN Stop: 01/10/24 08:59 Last Admin: 12/11/23 08:29 Dose: 75 mg Documented By: MARIA ALEJANDRA Terazosin HCl (Terazosin Hcl 5 Mg Cap) 10 mg PO DAILY DARREN Stop: 01/10/24 08:59 Last Admin: 12/11/23 08:40 Dose: 10 mg Documented By: MARIA ALEJANDRA Triamcinolone Acetonide (Triamcinolone Acet 0.1% Cr 80 Gm Tube) 1 appln TOP BID PRN PRN Reason: BL legs Stop: 01/10/24 02:28 Last Admin: 12/11/23 08:30 Dose: 1 appln Documented By: MARIA ALEJANDRA Discontinued Medications Ceftriaxone Sodium (Rocephin) 2,000 mg in 50 mls @ 100 mls/hr IV NOW STA Stop: 12/10/23 20:33 Last Infusion: 12/10/23 20:49 Dose: Infused Documented By: Admin: 12/10/23 20:15 Dose: 100 mls/hr Documented By: Terbinafine HCl (Terbinafine Hcl 250 Mg Tab) 250 mg PO ONCE ONE Stop: 12/11/23 02:46 Last Admin: 12/11/23 03:37 Dose: 250 mg Documented By: JERSEY Imaging Data Radiologist's Impression: Head CT 12/10/23 19:40 Exam(s): CT HEAD Without Contrast EXAM: CT Head Without Intravenous Contrast CLINICAL HISTORY: Reason for exam: left scalp infection. TECHNIQUE: Axial computed tomography images of the head/brain without intravenous contrast. CTDI is 35.65 mGy and DLP is 546.36 mGy-cm. Automated exposure control was utilized for the study. A dose lowering technique was utilized adhering to the principles of ALARA. COMPARISON: No comparisons made to prior head CT from May 28, 2021. FINDINGS: Brain: Remote ischemic injury of the right frontal lobe with encephalomalacia and gliosis. Remote ischemic injury of the left capsule. Advanced nonspecific white matter changes.. No edema. Ventricles: Unremarkable. No ventriculomegaly. Bones/joints: Unremarkable. No acute fracture. Soft tissues: There is extensive soft tissue swelling about the left posterior occipital right with small fluid collection. Sinuses: Unremarkable as visualized. No acute sinusitis. Mastoid air cells: Unremarkable as visualized. No mastoid effusion. IMPRESSION: Extensive soft tissue swelling about the left posterior occiput a small fluid collection concerning for infection and small abscess formation. Electronically signed by: Judy Nicholson MD 12/10/23 22:10 PM Discharge Plan Visit Data Chief Complaint: Skin Problem Stated Complaint: GROWTH ON BACK OF HEAD ED Provider: Alycia Almendarez Discharge Problem: Cellulitis of scalp, Scalp abscess Patient Disposition: Admitted As Inpatient Discharge Instructions Interventions: ED Discharge Assessment Last Done: 12/11/23 01:52
--- NOTE | 2023-12-10 22:12 | CT Scan Report ---
Exam(s): CT HEAD Without Contrast EXAM: CT Head Without Intravenous Contrast CLINICAL HISTORY: Reason for exam: left scalp infection. TECHNIQUE: Axial computed tomography images of the head/brain without intravenous contrast. CTDI is 35.65 mGy and DLP is 546.36 mGy-cm. Automated exposure control was utilized for the study. A dose lowering technique was utilized adhering to the principles of ALARA. COMPARISON: No comparisons made to prior head CT from May 28, 2021. FINDINGS: Brain: Remote ischemic injury of the right frontal lobe with encephalomalacia and gliosis. Remote ischemic injury of the left capsule. Advanced nonspecific white matter changes.. No edema. Ventricles: Unremarkable. No ventriculomegaly. Bones/joints: Unremarkable. No acute fracture. Soft tissues: There is extensive soft tissue swelling about the left posterior occipital right with small fluid collection. Sinuses: Unremarkable as visualized. No acute sinusitis. Mastoid air cells: Unremarkable as visualized. No mastoid effusion. IMPRESSION: Extensive soft tissue swelling about the left posterior occiput a small fluid collection concerning for infection and small abscess formation. Electronically signed by: Judy Nicholson MD 12/10/23 22:10 PM
[2023-12-10] MEDS: SODIUM CHLORIDE 0.9% 1,000 ML IV SCH (23:11)
[2023-12-10] MEDS ORDERED: DEXTROSE 50% 50 ML SYRINGE IV PRN (23:13)
[2023-12-10] MEDS ORDERED: CARBOHYDRATES FOR HYPOGLYCEMIA PO PRN (23:13)
[2023-12-10] MEDS ORDERED: GLUCOSE 10 TAB/TUBE PO PRN (23:13)
[2023-12-10] MEDS ORDERED: GLUCOSE 40% GEL 15 GM TUBE PO PRN (23:13)
[2023-12-10] MEDS ORDERED: GLUCAGON FOR INJ 1 MG VIAL SQ PRN (23:13)
--- NOTE | 2023-12-10 23:38 | History & Physical Report ---
Date of Service December 10, 2023 Assessment & Plan (1) Scalp abscess: Plan: Scalp abscess with surrounding cellulitis: Clinical presentation likely Kerion ; Not in Spesis Vitals: Stable Labs: WBC: 18.35, Hgb: 12.1 BUN: 26, Cr: 2.43, Procal: 0.38 CT head Extensive soft tissue swelling about the left posterior occiput a small fluid collection concerning for infection and small abscess formation. IV fluid resuscitation ongoing: NSS 125ml /hour Daptomycin as per protocol started Terbenafine 250 mg Daily added for possible Kerion. Wait for Culture report to decide use of Steroid for Kerion as per recommendation. Swab C/S sent today. (2) Cellulitis of scalp: Plan: As per 1 (3) Tinea capitis: Plan: As per 1 Clinical presentation likely suggestive of Kerion due to Taenia rather than sole bacterial infection. 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 Last HBA1C: 8.9( 11/15) Admitted for DKA in [facility] in September Under Insulin long acting 40 U and Regular sliding insulin at home Changed to Lantus 25 U lantus + Sliding scale Regular (6) Hypothyroidism: Plan: Levothyroxine 112 mcg TSH ( 11/15): 0.4 Plan : Repeat TSH tomorrow Plan Other Chronic problems: CKS stage 3: Cr. 2.43; stable at baseline, K :3.4 , Disposition: Admit to med/surg Diet: Heart healthy Code status: Full code DVT prophylaxis: Under Eliquis History of Present Illness Chief Complaint: Wound in back of his head Primary Care Provider: Alek Vera DO Mr. Gambino is a 78-year-old male with PMH of Type II DM, CHF, CAD, S/P cardiac pacemaker, HTN, morbid Obesity, GERD, Dyslipidemia, CKD3, Static dermatitis presented to ED from skilled facility due to concern for worsening wound and possible infection to the scalp, not behaving like himself as well as increased fatigue/weakness and decreased appetite as noted by facility staff. He was seen here 2 days ago and treated for ringworm with ketoconazole and fluconazole. Family states over the next several days this area appeared worse, began to drain, and was increasingly red. They also noted he had decreased appetite. No trauma or injuries. Patient is a diabetic He was admitted in ICU for DKA and intubated for passing out 2 month back. Was admitted in hospital for a month and intubation period was 2 days. On chart review he seems to have seen PCP for otitis media, but does not complain of ear pain or decreased hearing now. No h/o fever, trauma, fall, seizure, ear discharge, limb paralysis, swallowing problem, chest pain ,SOB. PMH: Reviewed Medication history: Reviewed Drug and Allergy: Oxycodone Allergies Allergy/AdvReac Type Severity Reaction Status Date / Time cefaclor AdvReac Intermediate RASH Verified 07/29/23 11:35 oxycodone AdvReac Intermediate "I GET ALL Verified 07/29/23 11:35 GOOFY" Home Medications Medication Instructions Recorded Confirmed Type sharps container-insulin syringe ##1 10/05/18 07/29/23 History and needle 1 mL 30 gauge x 08/18" acetaminophen 325 mg capsule 650 mg PO TID PRN Pain 02/13/20 07/29/23 History (Tylenol) clotrimazole 1 % topical cream 1 applic topical BID PRN Skin 03/17/21 07/29/23 History (Lotrimin AF (clotrimazole)) Irritation aspirin 81 mg tablet,delayed 81 mg PO DAILY 05/28/21 07/29/23 History release losartan 100 1 tab PO DAILY 05/28/21 07/29/23 History mg-hydrochlorothiazide 25 mg tablet flash glucose scanning reader 07/04/21 07/29/23 History (FreeStyle Maisha 2 Steele) lancets 30 gauge (OneTouch Delica 07/04/21 07/29/23 History Plus Lancet) flash glucose sensor (FreeStyle #2 ea 07/09/21 07/29/23 Rx Maisha 2 Sensor kit) triamcinolone acetonide 0.1 % 1 applic topical BID PRN 04/01/22 07/29/23 History topical cream mupirocin 2 % topical ointment 1 applic topical BID #22 grams 04/16/22 07/29/23 Rx pen needle, diabetic 32 gauge x #100 ea 05/27/22 07/29/23 Rx 1/4" (BD Ultra-Fine Micro Pen Needle) furosemide 20 mg tablet 20 mg PO DAILY #90 tabs 08/28/22 07/29/23 Rx nitroglycerin 0.4 mg sublingual 0.4 mg sublingual Q5M #25 tabs 08/28/22 07/29/23 Rx tablet magnesium oxide 400 mg (241.3 mg See Rx Instructions .Route 12/06/22 07/29/23 Rx magnesium) tablet .COMPLEX #180 tabs apixaban 5 mg tablet (Eliquis) 5 mg PO BID #180 tabs 04/28/23 07/29/23 Rx atorvastatin 80 mg tablet 80 mg PO DAILY #90 tabs 04/28/23 07/29/23 Rx empagliflozin 10 mg tablet See Rx Instructions .Route 04/28/23 07/29/23 Rx (Jardiance) .COMPLEX #90 tabs terazosin 10 mg capsule 10 mg PO DAILY #90 caps 04/28/23 07/29/23 Rx gabapentin 300 mg capsule 300 mg PO DAILY #30 caps 05/06/23 07/29/23 Rx calcitriol 0.5 mcg capsule 0.5 mcg PO DAILY #180 caps 07/06/23 07/29/23 Rx sertraline 50 mg tablet 75 mg (1.5 x 50 mg) PO DAILY #135 08/06/23 Rx tabs tirzepatide 5 mg/0.5 mL 5 mg (0.5 mL) subcut .weekly #6 mL 10/14/23 Rx subcutaneous pen injector (Keyla) insulin degludec 100 unit/mL (3 40 unit subcut DAILY 11/11/23 History mL) subcutaneous pen (Tresiba FlexTouch U-100 insulin) insulin lispro 100 unit/mL 1 sliding scale dose subcut 11/11/23 History subcutaneous pen (Admelog SoloStar USEASDIRECTD U-) levothyroxine 112 mcg capsule 112 mcg PO DAILY 11/11/23 History metoprolol succinate 50 mg 50 mg PO BID 11/11/23 History tablet,extended release 24 hr nitroglycerin 0.4 mg sublingual 0.4 mg sublingual Q5M PRN 11/11/23 History tablet ondansetron 4 mg disintegrating 4 mg PO Q8H PRN 11/11/23 History tablet pantoprazole 40 mg tablet,delayed 40 mg PO DAILY 11/11/23 History release polyethylene glycol 3350 17 17 g PO DAILY 11/11/23 History gram/dose oral powder (Miralax) potassium chloride 20 mEq 20 meq PO DAILY 11/11/23 History tablet,extended release fluconazole 150 mg tablet 150 mg PO Q7D 8 doses #8 tabs 12/08/23 Rx fluconazole 150 mg tablet 150 mg PO Q7D 8 weeks #8 tabs 12/08/23 Rx ketoconazole 2 % shampoo 1 applic topical TID 2 weeks #120 12/08/23 Rx mL Past Med/Surg History Problem List Scalp abscess (Acute) Cellulitis of scalp (Acute) Tinea capitis (Acute) Right otitis media Finger pain, left Encounter for screening colonoscopy Toe injury Traumatic loss of toenail of right great toe Vitamin D deficiency Bilateral pulmonary embolism Lumbar back pain with radiculopathy affecting left lower extremity Albuminuria Hypertension Diabetes type 2, uncontrolled Pulmonary nodule Sleep apnea (Chronic) Secondary hyperparathyroidism (Chronic) Morbid obesity (Chronic) Lumbar spinal stenosis (Chronic) Hypothyroidism (Chronic) Dyslipidemia (Chronic) Dysesthesia (Chronic) Diabetic peripheral 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) Depression (Chronic) Chronic reflux esophagitis (Chronic) Cardiac pacemaker (Chronic) CHF (congestive heart failure) (Chronic) Arteriosclerotic cardiovascular disease (Chronic) Anemia (Chronic) Chronic kidney disease, stage III (moderate) Background diabetic retinopathy associated with type 2 diabetes mellitus Hypomagnesemia Chronic anemia (Acute) Medical History Acute respiratory failure JUANPABLO (acute kidney injury) Colon polyps Elevated transaminase level Hematuria Tinea pedis of both feet Vitamin D deficiency Surgical History History of colonoscopy History of tonsillectomy History of mandibular surgery History of cholecystectomy History of coronary artery stent placement History of cardiac cath History of cataract surgery Family History Father Lung cancer Brother Lung disease Lung cancer Denies family history of Ovarian cancer Prostate cancer Myocardial infarction Breast cancer Colorectal cancer Social History Smoking Status: Never smoker Tobacco Type: Cigarettes and Pipe Age Started Using Tobacco: 20; Age Quit Using Tobacco: 21; Cigarettes Per Day: 15; Second Hand Exposure: Yes; Do You Dip or Chew Tobacco: No; Hx Alcohol Use: Yes Alcohol type: beer Alcohol Intake Frequency: Monthly or Less Alcohol Intake Frequency Comment: Socially Hx Substance Use: No Preferred Language: Romanian Communication Ability: Effective Visual Impairment: No Limitations Hearing Ability: Use of Hearing Aid Environmental Health Technologist Required: No Beliefs That Will Affect Care: None marital status: / Current Living Situation: Personal Care Facility current occupational status: retired 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 How many Children do You have: 2 Feels Safe at Home: Yes Safety Concerns: Feels Safe At This Time Childhood Exposure to Second-Hand Smoke: No Diet: regular Diet Comment: Regular Diet caffeine: No during the past year weight has: remained stable Dental Care, Regularly: No Physical Activity Frequency: Does not Exercise Seatbelt Use: sometimes Sunscreen Use: No Assistive Devices: Hearing Aid - Bilateral Review of Systems 2 Review of Systems: As per HPI Physical Exam 2 Physical Exam: Constitutional: Well appearing, No acute distress, Pale, Lying in discomfort in bed, towards his right HEENT: Huge area of erythematous, warm, tender cellulitis with centra; scaly fluctuant lesion noted in left occipital region of head. Tender, warm+, neck free. No conjunctival injection CVS: S1 S2 no murmur, Regular Rhythm, BL leg mild edema Respiratory: BL equal air entry with NVBS. No rhonchi, wheezes, or crackles. No increased work of breathing GI: Soft, Obese abdomen, Nontender, Normal Bowel sounds + MSK: No gross deformities noted Skin: Warm, Dry, No rashes Neuro: Alert, Oriented to TPP, No Focal deficit Psych: Mood and Affect congruent, Cooperative on exam Results & Data Results & Data Vital Signs (Past 12 Hours) Vital Signs Temp Pulse Pulse Resp BP BP Pulse Ox 12/10/23 22:23 90 18 115/80 98 12/10/23 20:20 85 20 136/73 95 12/10/23 18:23 36.6 C 93 H 20 125/64 91 O2 Del Method 12/10/23 22:23 Room Air 12/10/23 20:20 Room Air 12/10/23 18:23 Room Air Laboratory Results Laboratory Results WBC 18.35 K/ul (4.8-10.8) H 12/10/23 19:15 RBC 4.47 M/uL (4.70-6.10) L 12/10/23 19:15 Hgb 12.1 g/dl (14.0-18.0) L 12/10/23 19:15 Hct 37.8 % (42.0-52.0) L 12/10/23 19:15 MCV 84.6 fL (80.0-100.0) 12/10/23 19:15 MCH 27.1 pg (25.0-34.0) 12/10/23 19:15 MCHC 32.0 g/dL (32.0-36.0) 12/10/23 19:15 RDW Std Deviation 42.7 fL (36.4-46.3) 12/10/23 19:15 RDW Coeff of Rito 13.8 % (11.5-14.5) 12/10/23 19:15 Plt Count 266 K/uL (130-400) 12/10/23 19:15 MPV 10.4 fL (9.4-12.4) 12/10/23 19:15 Immature Gran % (Auto) 0.7 % 12/10/23 19:15 Neut % (Auto) 87.0 % 12/10/23 19:15 Lymph % (Auto) 4.0 % 12/10/23 19:15 [place] % (Auto) 5.6 % 12/10/23 19:15 Eos % (Auto) 2.4 % 12/10/23 19:15 Baso % (Auto) 0.3 % 12/10/23 19:15 Neut # (Auto) 15.98 K/uL (1.40-6.50) H 12/10/23 19:15 Lymph # (Auto) 0.73 K/uL (1.20-3.40) L 12/10/23 19:15 [place] # (Auto) 1.02 K/uL (0.11-0.59) H 12/10/23 19:15 Eos # (Auto) 0.44 K/uL (0.00-0.50) 12/10/23 19:15 Baso # (Auto) 0.05 K/uL (0.00-0.20) 12/10/23 19:15 Immature Gran # (Auto) 0.13 K/uL (0.01-0.20) 12/10/23 19:15 PT 12.2 Seconds (9.0-12.0) H 12/10/23 19:15 INR 1.1 (0.9-1.1) 12/10/23 19:15 Sodium 135 mmol/L (136-145) L 12/10/23 19:15 Potassium 3.8 mmol/L (3.5-5.1) 12/10/23 19:15 Chloride 101 mmol/L (98-107) 12/10/23 19:15 Carbon Dioxide 24 mmol/L (21-32) 12/10/23 19:15 Anion Gap 10 (3-11) 12/10/23 19:15 BUN 26 mg/dl (6-23) H 12/10/23 19:15 Creatinine 2.43 mg/dl (0.6-1.4) H 12/10/23 19:15 Est Cr Clr Drug Dosing Not Reportable 12/10/23 19:15 Est GFR ( Amer) 28.8 ml/min 12/10/23 19:15 Est GFR (Non-Af Amer) 24.9 ml/min 12/10/23 19:15 BUN/Creatinine Ratio 10.7 (10-20) 12/10/23 19:15 Glucose 143 mg/dl (70-99(Fasting)) H 12/10/23 19:15 POC Glucose 135 mg/dl (70-99) H 12/11/23 02:18 Calcium 9.6 mg/dl (8.6-10.3) 12/10/23 19:15 Total Bilirubin 0.7 mg/dl (0.2-1.0) 12/10/23 19:15 AST 36 U/L (13-39) 12/10/23 19:15 ALT 21 U/L (7-52) 12/10/23 19:15 Alkaline Phosphatase 148 U/L (34-104) H 12/10/23 19:15 Total Protein 7.8 gm/dl (6.0-8.3) 12/10/23 19:15 Albumin 3.7 gm/dl (3.4-5.0) 12/10/23 19:15 Globulin 4.1 gm/dl (2.5-4.0) H 12/10/23 19:15 Albumin/Globulin Ratio 0.9 (0.9-2) 12/10/23 19:15 Procalcitonin 0.38 ng/ml (0-0.5) 12/10/23 19:15 TSH 1.131 uIu/ml (0.300-4.500) 12/10/23 19:[address] 12/10/23 19:40 Exam(s): CT HEAD Without Contrast EXAM: CT Head Without Intravenous Contrast CLINICAL HISTORY: Reason for exam: left scalp infection. TECHNIQUE: Axial computed tomography images of the head/brain without intravenous contrast. CTDI is 35.65 mGy and DLP is 546.36 mGy-cm. Automated exposure control was utilized for the study. A dose lowering technique was utilized adhering to the principles of ALARA. COMPARISON: No comparisons made to prior head CT from May 28, 2021. FINDINGS: Brain: Remote ischemic injury of the right frontal lobe with encephalomalacia and gliosis. Remote ischemic injury of the left capsule. Advanced nonspecific white matter changes.. No edema. Ventricles: Unremarkable. No ventriculomegaly. Bones/joints: Unremarkable. No acute fracture. Soft tissues: There is extensive soft tissue swelling about the left posterior occipital right with small fluid collection. Sinuses: Unremarkable as visualized. No acute sinusitis. Mastoid air cells: Unremarkable as visualized. No mastoid effusion. IMPRESSION: Extensive soft tissue swelling about the left posterior occiput a small fluid collection concerning for infection and small abscess formation. Electronically signed by: Judy Nicholson MD 12/10/23 22:10 PM Diagnostic Findings Supervising Physician Co-Signing Physician Notes Patient seen and examined, chart reviewed, case discussed with Dr. Feldman and I agree with the assessment and plan as above. In brief, patient with scalp lesion, likely fungal in nature. Has worsened over the last day with some drainage On exam patient is restless, NAD Skin - large scalp lesion as above, tender to palpation with area of fluctuance Obtain culture Treatment with Daptomycin and Terbinafine for now Consider General Surgery Consultation Remainder as above (4) Hypertension Hypertension type: primary hypertension Qualified Code(s): I10 - Essential (primary) hypertension (5) Diabetes type 2, uncontrolled Coma presence: without coma Glycemic state: with hypoglycemia Qualified Code(s): E11.649 - Type 2 diabetes mellitus with hypoglycemia without coma (6) Hypothyroidism Hypothyroidism type: unspecified Qualified Code(s): E03.9 - Hypothyroidism, unspecified
[2023-12-11] MEDS ORDERED: EMPAGLIFLOZIN 10 MG TAB PO SCH (02:29)
[2023-12-11] MEDS ORDERED: ONDANSETRON 4 MG OD TAB PO PRN (02:29)
[2023-12-11] MEDS ORDERED: NITROGLYCERIN SL 0.4 MG/TAB TAB SL SCH (02:29)
[2023-12-11] MEDS ORDERED: NITROGLYCERIN SL 0.4 MG/TAB TAB SL PRN ×2 (02:29→03:15)
[2023-12-11] MEDS ORDERED: NON-FORMULARY MEDICATION (Tirzepatide [Mounjaro] 5 mg/0.5 mL pen injector) SQ SCH (02:29)
[2023-12-11] MEDS ORDERED: ONDANSETRON INJ 2 MG/ML 2 ML VIAL IV PRN (02:29)
[2023-12-11] MEDS: ACETAMINOPHEN 325 MG TAB PO PRN (02:39)
[2023-12-11 03:12] LABS: Thyroid Stimulating Hormone 1.131 uIu/ml (0.300-4.500)
[2023-12-11] MEDS: terbinafine HCL 250 MG TAB PO ONE (03:37)
[2023-12-11] MEDS: DAPTOmycin 350 MG in SYRINGE 0 ML IV SCH (03:38)
[2023-12-11] MEDS: APIXABAN 5 MG TABLET PO SCH (03:38)
[2023-12-11] MEDS: METOPROLOL SUCC 50MG EXT REL TAB PO SCH (03:38)
--- NOTE | 2023-12-11 05:46 | Billing Data ---
Date of Service December 10, 2023 Coding Level of Care Code 21104 INT INP/OBS CARE
[2023-12-11] MEDS: LEVOTHYROXINE SODIUM 112 MCG TABLET PO SCH (06:18)
[2023-12-11 06:55] LABS: Albumin Globulin Ratio 0.9 (0.9-2); BUN Creatinine Ratio 11.3 (10-20); Bilirubin,Total 0.5 mg/dl (0.2-1.0); Calcium 8.4 mg/dl (8.6-10.3); Creatinine Clr Calc Pharmacy 33.3 ml/min; Est GFR (African American) 30.7 ml/min; Est GFR (Non-African American) 26.5 ml/min; Globulin 3.3 gm/dl (2.5-4.0); Potassium 3.8 mmol/L (3.5-5.1); Total Protein 6.3 gm/dl (6.0-8.3)
[2023-12-11 07:31] LABS: Estimated Average Glucose 203 mg/dl; Hemoglobin A1C 8.7 % (4.5-5.6)
--- NOTE | 2023-12-11 07:37 | XRay Report ---
XR chest 1V not portable HISTORY: 78 years-old Male low sat acute hypoxia COMPARISON: Chest CT 05/28/2021 TECHNIQUE: AP view of the chest FINDINGS: Cardiac silhouette is enlarged. Right subclavian dual lead pacer. Lungs are clear. No pneumothorax or pleural effusion. Subcentimeter pulmonary nodules seen by chest CT are not visualized by radiography . Calcified subcentimeter granuloma the left lung apex redemonstrated. IMPRESSION: Cardiomegaly without acute process. ACT 112: Negative or not required by law. The above report was generated using voice recognition software. It may contain grammatical, syntax o r spelling errors. Electronically signed by: Rakan Francis M.D. 12/11/2023 7:36 AM
[2023-12-11] MEDS: CALCITRIOL 0.25 MCG CAPSULE PO SCH (08:28)
[2023-12-11] MEDS: GABAPENTIN 300 MG CAP PO SCH (08:28)
[2023-12-11] MEDS: SERTRALINE HCL 50 MG TABLET PO SCH (08:29)
[2023-12-11] MEDS: PANTOprazole 40 MG TAB PO SCH (08:29)
[2023-12-11] MEDS: ASPIRIN 81 MG ECTAB PO SCH (08:29)
[2023-12-11] MEDS: MAGNESIUM OXIDE 400 MG TAB PO SCH (08:29)
[2023-12-11] MEDS: TRIAMCINOLONE ACET 0.1% CR 80 GM TUBE TOP PRN (08:30)
[2023-12-11] MEDS: INSULIN ASPART PER UNIT CHARGE SC SCH (08:35)
[2023-12-11] MEDS: LANTUS PER UNIT CHARGE SQ SCH (08:39)
[2023-12-11] MEDS: POTASSIUM CHLORIDE CRTAB 20 MEQ TABCR PO SCH (08:40)
[2023-12-11] MEDS: TERAZOSIN HCL 5 MG CAP PO SCH (08:40)
[2023-12-11] MEDS: LOSARTAN/HCTZ 50/12.5MG TAB PO SCH (08:40)
[2023-12-11] MEDS ORDERED: POLYETHYLENE (MIRALAX) 17 GM PACK PO SCH (09:00)
[2023-12-11] MEDS ORDERED: FUROSEMIDE 20 MG TAB PO SCH (09:00)
--- NOTE | 2023-12-11 13:09 | Hospitalist Progress Note ---
<Statement entered by Bonnie Lynch MD - 12/11/23 19:38> I have reviewed vital signs, chart notes, labs and imaging. I have personally seen, evaluated and examined the patient. I have also discussed the management of the patient with the GENE and I agree with the exam findings documented in the history and physical examination and the documented assessment and plan unless otherwise stated below. Mr. Poe has cellulitis and possibly underlying abscess of posterior scalp, wound cultures growing staff aureus we will continue vancomycin until sensitivities result. The area is erythematous warm indurated with some pustules on the surface and some fluctuance inferiorly suggestive of some small amount of underlying abscess, will need to monitor this closely he may require incision and drainage. there is flaky dermatitis surrounding the cellulitic area perhaps severe seborrhea or tinea. Date of Service December 11, 2023 Assessment & Plan (1) Scalp abscess: Plan: Scalp abscess with surrounding cellulitis, now draining. Preliminary result of wound culture showing Staph species Labs: WBC: 18.35, Hgb: 12.1 BUN: 26, Cr: 2.43, Procal: 0.38. Repeat BMP in AM. CT head Extensive soft tissue swelling about the left posterior occiput a small Daptomycin 350mg IV q24 hours Terbenafine 250 mg once given. Will stop. (2) Cellulitis of scalp: Plan: See #1 (3) Tinea capitis: Plan: As per 1 Clinical presentation likely suggestive of Kerion due to [place] rather than sole bacterial infection. Wait for CS report to evaluate for superadded bacterial cause - prelim report shows staph Procal: negative Previous long history of 3-4 month before acute presentation Terbinafine added for coverage; plan is to stop for now in the setting of bacterial infection. (4) Hypertension: Plan: Continue Losartan- HCTZ BP stable (5) Diabetes type 2, uncontrolled: Plan: Last HBA1C: 8.9( 11/15) Admitted for DKA in [facility] in September Normal home regimen: Insulin long acting 40 U and Regular sliding insulin at home Changed to Lantus 25 U lantus + Sliding scale Regular on admission (6) Hypothyroidism: Plan: Levothyroxine 112 mcg TSH (11/15): 0.4 Repeat on 12/09 = 1.131. Plan CKD Stage 3 Cr. 2.43; stable at baseline, K 3.8 Disposition: Diet: Heart healthy Code status: Full code DVT prophylaxis: Eliquis Admission and Anticipated Discharge Date Admission Date: December 11, 2023 Maxine aGrrett is a 78 y/o male who presented to the hospital from skilled facility due to worsening wound and possible scalp infection. The skilled facility reports that he was more fatigued than usual and appetite was decreased. He was treated for ringworm with ketoconazole and fluconazole in the ER on 12/07 and discharged. Family reported that the wound worsened, began to drain, and was increasingly red. Gerry reports some posterior head pain. He denies any fevers/chills. He denies any other open wounds. His brother is sitting with him. Wound culture from 12/09 shows preliminary result of Staphylococcus species. He is currently on Daptomycin and Terbenafine. WBC elevated 18.35. Review of Systems Constitutional: + fatigue; no fever, no chills and no stephy dy aches Eyes: no diplopia Ear, Nose, Mouth, Throat: no ear pain and no pain with swallowing Cardiovascular: no chest pain, no dyspnea and no dyspnea on exertion Gastrointestinal: no abdominal pain, no bloating, no nausea and no vomiting Genitourinary: no dysuria or no difficulty urinating Musculoskeletal: as per Subjective / HPI Integumentary: as per Subjective / HPI Neurologic: no syncope Physical Exam Constitutional: well nourished and comfortable; no acute distress ENMT: Mouth: no lip abnormality and oral mucous membranes not dry Respiratory: normal respiratory effort; no respiratory distress, no labored breathing and no cough Auscultation: lungs clear to auscultation bilaterally Cardiovascular: Rate/Rhythm: regular rate and regular rhythm Heart Sounds: no murmur Gastrointestinal (Abdomen): Inspection/Auscultation: abdomen normal to inspection and normal bowel sounds; abdomen not distended Skin: L posterior scalp lesion, scaly, + drainage, approx 6 cm long, + crusting, erythema surrounding Psychiatric: Affect: + flat affect Awake and oriented. Falls asleep easily, but easily arousable. Confused about what brought him to the hospital, but aware of scalp lesion and reports wo rsening. Results & Data Results & Data Vital Signs (Past 12 Hours) Vital Signs Temp Pulse Resp BP BP Pulse Ox O2 Del Method 12/11/23 09:00 111/64 12/11/23 07:29 37 C 66 18 89/47 L 93 Room Air 12/11/23 02:10 Room Air 12/11/23 02:10 37.5 C 81 20 129/69 94 Room Air 12/11/23 01:52 Room Air Laboratory Results 12/11/23 12/11/23 12/11/23 Range/Units 16:47 11:52 07:44 WBC (4.8-10.8) K/ul RBC (4.70-6.10) M/uL Hgb (14.0-18.0) g/dl Hct (42.0-52.0) % MCV (80.0-100.0) fL MCH (25.0-34.0) pg MCHC (32.0-36.0) g/dL RDW Std Deviation (36.4-46.3) fL RDW Coeff of Rito (11.5-14.5) % Plt Count (130-400) K/uL MPV (9.4-12.4) fL Immature Gran % (Auto) % Neut % (Auto) % Lymph % (Auto) % Canyon % (Auto) % Eos % (Auto) % Baso % (Auto) % Neut # (Auto) (1.40-6.50) K/uL Lymph # (Auto) (1.20-3.40) K/uL Canyon # (Auto) (0.11-0.59) K/uL Eos # (Auto) (0.00-0.50) K/uL Baso # (Auto) (0.00-0.20) K/uL Immature Gran # (Auto) (0.01-0.20) K/uL PT (9.0-12.0) Seconds INR (0.9-1.1) Sodium (136-145) mmol/L Potassium (3.5-5.1) mmol/L Chloride (98-107) mmol/L Carbon Dioxide (21-32) mmol/L Anion Gap (3-11) BUN (6-23) mg/dl Creatinine (0.6-1.4) mg/dl Est Cr Clr Drug Dosing Est GFR ( Amer) ml/min Est GFR (Non-Af Amer) ml/min BUN/Creatinine Ratio (10-20) Glucose (70-99(Fasting)) mg/dl POC Glucose 132 H 141 H 123 H (70-99) mg/dl Estimat Average Glucose mg/dl Hemoglobin A1c (4.5-5.6) % Calcium (8.6-10.3) mg/dl Total Bilirubin (0.2-1.0) mg/dl AST (13-39) U/L ALT (7-52) U/L Alkaline Phosphatase (34-104) U/L Total Protein (6.0-8.3) gm/dl Albumin (3.4-5.0) gm/dl Globulin (2.5-4.0) gm/dl Albumin/Globulin Ratio (0.9-2) Procalcitonin (0-0.5) ng/ml TSH (0.300-4.500) uIu/ml 12/11/23 12/11/23 12/10/23 Range/Units 06:10 02:18 19:15 WBC 18.35 H (4.8-10.8) K/ul RBC 4.47 L (4.70-6.10) M/uL Hgb 12.1 L (14.0-18.0) g/dl Hct 37.8 L (42.0-52.0) % MCV 84.6 (80.0-100.0) fL MCH 27.1 (25.0-34.0) pg MCHC 32.0 (32.0-36.0) g/dL RDW Std Deviation 42.7 (36.4-46.3) fL RDW Coeff of Rito 13.8 (11.5-14.5) % Plt Count 266 (130-400) K/uL MPV 10.4 (9.4-12.4) fL Immature Gran % (Auto) 0.7 % Neut % (Auto) 87.0 % Lymph % (Auto) 4.0 % Canyon % (Auto) 5.6 % Eos % (Auto) 2.4 % Baso % (Auto) 0.3 % Neut # (Auto) 15.98 H (1.40-6.50) K/uL Lymph # (Auto) 0.73 L (1.20-3.40) K/uL Canyon # (Auto) 1.02 H (0.11-0.59) K/uL Eos # (Auto) 0.44 (0.00-0.50) K/uL Baso # (Auto) 0.05 (0.00-0.20) K/uL Immature Gran # (Auto) 0.13 (0.01-0.20) K/uL PT 12.2 H (9.0-12.0) Seconds INR 1.1 (0.9-1.1) Sodium 137 135 L (136-145) mmol/L Potassium 3.8 3.8 (3.5-5.1) mmol/L Chloride 105 101 (98-107) mmol/L Carbon Dioxide 24 24 (21-32) mmol/L Anion Gap 8 10 (3-11) BUN 26 H 26 H (6-23) mg/dl Creatinine 2.31 H 2.43 H (0.6-1.4) mg/dl Est Cr Clr Drug Dosing 33.3 Not Reportable Est GFR ( Amer) 30.7 28.8 ml/min Est GFR (Non-Af Amer) 26.5 24.9 ml/min BUN/Creatinine Ratio 11.3 10.7 (10-20) Glucose 118 H 143 H (70-99(Fasting)) mg/dl POC Glucose 135 H (70-99) mg/dl Estimat Average Glucose 203 mg/dl Hemoglobin A1c 8.7 H (4.5-5.6) % Calcium 8.4 L 9.6 (8.6-10.3) mg/dl Total Bilirubin 0.5 0.7 (0.2-1.0) mg/dl AST 33 36 (13-39) U/L ALT 19 21 (7-52) U/L Alkaline Phosphatase 128 H 148 H (34-104) U/L Total Protein 6.3 7.8 (6.0-8.3) gm/dl Albumin 3.0 L 3.7 (3.4-5.0) gm/dl Globulin 3.3 4.1 H (2.5-4.0) gm/dl Albumin/Globulin Ratio 0.9 0.9 (0.9-2) Procalcitonin 0.38 (0-0.5) ng/ml TSH 1.131 (0.300-4.500) uIu/ml Diagnostic Findings Chest X-Ray 12/10/23 18:29 XR chest 1V not portable HISTORY: 78 years-old Male low sat acute hypoxia COMPARISON: Chest CT 05/28/2021 TECHNIQUE: AP view of the chest FINDINGS: Cardiac silhouette is enlarged. Right subclavian dual lead pacer. Lungs are clear. No pneumothorax or pleural effusion. Subcentimeter pulmonary nodules seen by chest CT are not visualized by radiography. Calcified subcentimeter granuloma the left lung apex redemonstrated. IMPRESSION: Cardiomegaly without acute process. ACT 112: Negative or not required by law. The above report was generated using voice recognition software. It may contain grammatical, syntax or spelling errors. Electronically signed by: Rakan Francis M.D. 12/11/2023 7:[address] 12/10/23 19:40 Exam(s): CT HEAD Without Contrast EXAM: CT Head Without Intravenous Contrast CLINICAL HISTORY: Reason for exam: left scalp infection. TECHNIQUE: Axial computed tomography images of the head/brain without intravenous contrast. CTDI is 35.65 mGy and DLP is 546.36 mGy-cm. Automated exposure control was utilized for the study. A dose lowering technique was utilized adhering to the principles of ALARA. COMPARISON: No comparisons made to prior head CT from May 28, 2021. FINDINGS: Brain: Remote ischemic injury of the right frontal lobe with encephalomalacia and gliosis. Remote ischemic injury of the left capsule. Advanced nonspecific white matter changes.. No edema. Ventricles: Unremarkable. No ventriculomegaly. Bones/joints: Unremarkable. No acute fracture. Soft tissues: There is extensive soft tissue swelling about the left posterior occipital right with small fluid collection. Sinuses: Unremarkable as visualized. No acute sinusitis. Mastoid air cells: Unremarkable as visualized. No mastoid effusion. IMPRESSION: Extensive soft tissue swelling about the left posterior occiput a small fluid collection concerning for infection and small abscess formation. Electronically signed by: Judy Nicholson MD 12/10/23 22:10 PM PG Care Time/CCT Total # of Minutes Spent Total Time Spent with Patient: Total time spent is greater than 50% in coordination of care (as documented) at patient's floor/unit and/or counseling patient: Coding Level of Care Code 66661 SUB INP/OBS CARE 2/35MIN Diagnoses Scalp abscess L02.811 Cellulitis of scalp L03.811 Tinea capitis B35.0 Primary hypertension I10 Hypertension type: primary hypertension Uncontrolled type 2 diabetes mellitus with hypoglycemia without coma E11.649 Coma presence: without coma Glycemic state: with hypoglycemia Hypothyroidism, unspecified type E03.9 Hypothyroidism type: unspecified (4) Hypertension Hypertension type: primary hypertension Qualified Code(s): I10 - Essential (primary) hypertension (5) Diabetes type 2, uncontrolled Coma presence: without coma Glycemic state: with hypoglycemia Qualified Code(s): E11.649 - Type 2 diabetes mellitus with hypoglycemia without coma (6) Hypothyroidism Hypothyroidism type: unspecified Qualified Code(s): E03.9 - Hypothyroidism, unspecified
[2023-12-11] MEDS ORDERED: terbinafine HCL 250 MG TAB PO ONE (18:00)
[2023-12-11 19:26] LABS: Basophils % (auto) 0.6 %; Eosinophils # (auto) 0.47 K/uL (0.00-0.50); Eosinophils % (auto) 2.7 %; Hematocrit (blood only) 40.3 % (42.0-52.0); Hemoglobin 12.4 g/dl (14.0-18.0); Immature Granulocytes # (auto) 0.11 K/uL (0.01-0.20); Immature Granulocytes % (auto) 0.6 %; Lymphocytes % (auto) 4.6 %; Mean Corpuscular Hemoglobin 27.3 pg (25.0-34.0); Mean Corpuscular Hgb Conc 30.8 g/dL (32.0-36.0); Mean Corpuscular Volume 88.6 fL (80.0-100.0); Mean Platelet Volume 10.2 fL (9.4-12.4); Monocytes # (auto) 0.97 K/uL (0.11-0.59); Monocytes % (auto) 5.6 %; Neutrophils # (auto) 14.99 K/uL (1.40-6.50); Neutrophils % (auto) 85.9 %; Platelet Count 199 K/uL (130-400); RDW Coefficient of Variation 14.1 % (11.5-14.5); RDW Standard Deviation 45.2 fL (36.4-46.3); Red Blood Count 4.55 M/uL (4.70-6.10); White Blood Count 17.44 K/ul (4.8-10.8)
[2023-12-11] MEDS: MELATONIN 3 MG TAB PO PRN (20:45)
[2023-12-12 06:41] LABS: Calcium 8.2 mg/dl (8.6-10.3); Creatinine Clr Calc Pharmacy 35.5 ml/min; Est GFR (African American) 33.1 ml/min; Est GFR (Non-African American) 28.5 ml/min; Potassium 3.8 mmol/L (3.5-5.1)
--- NOTE | 2023-12-12 10:00 | Hospitalist Progress Note ---
<Statement entered by Bonnie Lynch MD - 12/12/23 16:12> I have reviewed vital signs, chart notes, labs and imaging. I have personally seen, evaluated and examined the patient. I have also discussed the management of the patient with the GENE and I agree with the exam findings documented in the history and physical examination and the documented assessment and plan unless otherwise stated below. MRSA cellulitis and abscess of posterior scalp, underlying flaky dermatitis perhaps seborrhea or tinea capitis Appearance of Gerry tong scalp is improved today with less surrounding erythema large central indurated portion with fluctuance, now draining pus from multiple tracts, I was able to express approximately 2 cc of pus unclear whether he will need I&D at this point, continue daptomycin and warm compresses Date of Service December 12, 2023 Assessment & Plan (1) Scalp abscess: Plan: Scalp abscess with surrounding cellulitis, now draining. Wound Culture results showing MRSA. Patient in contact precautions. CT head showed extensive soft tissue swelling about the left posterior occiput, a small fluid collection concerning for infection and small abscess formation. Daptomycin 350mg IV q24 hours --> continue. Culture sensitivities show that it is sensitive to Dapto. Terbinafine 250 mg x1 was given. Discontinued. WBC 18.35 --> 17.44 Consider Gen/Surg consult for possible I&D, but draining on its own at this time. Warm Compresses QID. (2) Cellulitis of scalp: Plan: See #1 (3) Tinea capitis: Plan: As per 1 Severe Seborrhea vs. Tinea. Procal: negative Previous long history of 3-4 month before acute presentation Terbinafine added for coverage but stopped due to positive MRSA culture - treating with Daptomycin. (4) Hypertension: Plan: Continue Losartan- HCTZ BP stable (5) Diabetes type 2, uncontrolled: Plan: Last HBA1C: 8.9( 11/15) Admitted for DKA in [facility] in September Normal home regimen: Insulin long acting 40 U and Regular sliding insulin at home Changed to Lantus 25 U lantus + Sliding scale Regular on admission - BS stable (6) Hypothyroidism: Plan: Levothyroxine 112 mcg - continue current dose TSH (11/15): 0.4 Repeat on 12/09 = 1.131. (7) Chronic kidney disease, stage III (moderate): Plan: Cr 2.43 --> 2.17 K 3.8 - Avoid nephrotoxic agents Plan Disposition: Diet: Heart healthy Code status: Full code DVT prophylaxis: Eliquis Admission and Anticipated Discharge Date Admission Date: December 11, 2023 Maxine Garrett is a 78 y/o male who presented to the hospital from skilled facility due to worsening wound and possible scalp infection. The skilled facility reports that he was more fatigued than usual and appetite was decreased. He was treated for ringworm with ketoconazole shampoo and fluconazole in the ER on 12/07 and discharged. Family reported that the wound worsened, began to drain, and was increasingly red. Gerry reports some posterior head pain today. He denies any fevers/chills. He denies any other open wounds. Wound culture from 12/09 shows MRSA - placed in contact precautions. He is currently on Daptomycin, he did get one dose of Terbinafine. WBC 17.44 today. Review of Systems Constitutional: + fatigue; no fever, no chills and no stephy dy aches Eyes: no diplopia Ear, Nose, Mouth, Throat: no ear pain and no pain with swallowing Cardiovascular: no chest pain, no dyspnea and no dyspnea on exertion Gastrointestinal: no abdominal pain, no bloating, no nausea and no vomiting Genitourinary: no dysuria or no difficulty urinating Musculoskeletal: as per Subjective / HPI Integumentary: as per Subjective / HPI Neurologic: no syncope Physical Exam Constitutional: well nourished and comfortable (+ pain with palpation of posterior scalp); no acute distress ENMT: Mouth: no lip abnormality and oral mucous membranes not dry Respiratory: normal respiratory effort; no respiratory distress, no labored breathing and no cough Cardiovascular: Extremities: no edema Gastrointestinal (Abdomen): Inspection/Auscultation: abdomen normal to inspection Skin: L Posterior scalp wound, scaly, + fluctuation, warm, surrounding erythema, + pus drainage (approx 2cc of drainage), + pain with palpation Psychiatric: Affect: + flat affect Results & Data Results & Data Vital Signs (Past 12 Hours) Vital Signs Temp Pulse Resp BP Pulse Ox O2 Del Method 12/12/23 07:26 36.6 C 61 16 139/73 96 Room Air Laboratory Results 12/12/23 12/12/23 12/11/23 Range/Units 07:27 05:46 20:23 WBC (4.8-10.8) K/ul RBC (4.70-6.10) M/uL Hgb (14.0-18.0) g/dl Hct (42.0-52.0) % MCV (80.0-100.0) fL MCH (25.0-34.0) pg MCHC (32.0-36.0) g/dL RDW Std Deviation (36.4-46.3) fL RDW Coeff of Rito (11.5-14.5) % Plt Count (130-400) K/uL MPV (9.4-12.4) fL Immature Gran % (Auto) % Neut % (Auto) % Lymph % (Auto) % Wake % (Auto) % Eos % (Auto) % Baso % (Auto) % Neut # (Auto) (1.40-6.50) K/uL Lymph # (Auto) (1.20-3.40) K/uL Wake # (Auto) (0.11-0.59) K/uL Eos # (Auto) (0.00-0.50) K/uL Baso # (Auto) (0.00-0.20) K/uL Immature Gran # (Auto) (0.01-0.20) K/uL Sodium 137 (136-145) mmol/L Potassium 3.8 (3.5-5.1) mmol/L Chloride 106 (98-107) mmol/L Carbon Dioxide 24 (21-32) mmol/L Anion Gap 7 (3-11) BUN 26 H (6-23) mg/dl Creatinine 2.17 H (0.6-1.4) mg/dl Est Cr Clr Drug Dosing 35.5 ml/min Est GFR ( Amer) 33.1 ml/min Est GFR (Non-Af Amer) 28.5 ml/min BUN/Creatinine Ratio 12.0 (10-20) Glucose 122 H (70-99(Fasting)) mg/dl POC Glucose 127 H 172 H (70-99) mg/dl Calcium 8.2 L (8.6-10.3) mg/dl 12/11/23 12/11/23 12/11/23 Range/Units 19:02 16:47 11:52 WBC 17.44 H (4.8-10.8) K/ul RBC 4.55 L (4.70-6.10) M/uL Hgb 12.4 L (14.0-18.0) g/dl Hct 40.3 L (42.0-52.0) % MCV 88.6 (80.0-100.0) fL MCH 27.3 (25.0-34.0) pg MCHC 30.8 L (32.0-36.0) g/dL RDW Std Deviation 45.2 (36.4-46.3) fL RDW Coeff of Rito 14.1 (11.5-14.5) % Plt Count 199 (130-400) K/uL MPV 10.2 (9.4-12.4) fL Immature Gran % (Auto) 0.6 % Neut % (Auto) 85.9 % Lymph % (Auto) 4.6 % Wake % (Auto) 5.6 % Eos % (Auto) 2.7 % Baso % (Auto) 0.6 % Neut # (Auto) 14.99 H (1.40-6.50) K/uL Lymph # (Auto) 0.80 L (1.20-3.40) K/uL Wake # (Auto) 0.97 H (0.11-0.59) K/uL Eos # (Auto) 0.47 (0.00-0.50) K/uL Baso # (Auto) 0.10 (0.00-0.20) K/uL Immature Gran # (Auto) 0.11 (0.01-0.20) K/uL Sodium (136-145) mmol/L Potassium (3.5-5.1) mmol/L Chloride (98-107) mmol/L Carbon Dioxide (21-32) mmol/L Anion Gap (3-11) BUN (6-23) mg/dl Creatinine (0.6-1.4) mg/dl Est Cr Clr Drug Dosing ml/min Est GFR ( Amer) ml/min Est GFR (Non-Af Amer) ml/min BUN/Creatinine Ratio (10-20) Glucose (70-99(Fasting)) mg/dl POC Glucose 132 H 141 H (70-99) mg/dl Calcium (8.6-10.3) mg/dl PG Care Time/CCT Total # of Minutes Spent Total Time Spent with Patient: Total time spent is greater than 50% in coordination of care (as documented) at patient's floor/unit and/or counseling patient: Coding [place] [address] SUB INP/OBS CARE 2/35MIN Patient Type Established History Expanded Problem Focused Exam Expanded Problem Focused Medical Decision Making Moderate Complexity Diagnoses Scalp abscess L02.811 Cellulitis of scalp L03.811 Tinea capitis B35.0 Primary hypertension I10 Hypertension type: primary hypertension Uncontrolled type 2 diabetes mellitus with hypoglycemia without coma E11.649 Coma presence: without coma Glycemic state: with hypoglycemia Hypothyroidism, unspecified type E03.9 Hypothyroidism type: unspecified Stage 3b chronic kidney disease N18.32 Chronic kidney disease stage 3 subtype: stage 3b (GFR 30-44) (4) Hypertension Hypertension type: primary hypertension Qualified Code(s): I10 - Essential (primary) hypertension (5) Diabetes type 2, uncontrolled Coma presence: without coma Glycemic state: with hypoglycemia Qualified Code(s): E11.649 - Type 2 diabetes mellitus with hypoglycemia without coma (6) Hypothyroidism Hypothyroidism type: unspecified Qualified Code(s): E03.9 - Hypothyroidism, unspecified (7) Chronic kidney disease, stage III (moderate) Chronic kidney disease stage 3 subtype: stage 3b (GFR 30-44) Qualified Code(s): N18.32 - Chronic kidney disease, stage 3b
--- NOTE | 2023-12-12 22:38 | Electrocardiogram Report ---
Test Reason : Blood Pressure : */* mmHG Vent. 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
[2023-12-13] MEDS: POLYETHYLENE (MIRALAX) 17 GM PACK PO PRN (09:52)
--- NOTE | 2023-12-13 14:28 | Hospitalist Progress Note ---
Date of Service December 13, 2023 Assessment & Plan (1) Scalp abscess: Plan: 78-year-old man admitted with MRSA scalp abscess and surrounding cellulitis. there is a flaky dermatitis surrounding this area of his scalp Scalp abscess with surrounding cellulitis, now draining. Wound Culture results showing MRSA. Patient in contact precautions. CT head showed extensive soft tissue swelling about the left posterior occiput, a small fluid collection concerning for infection and small abscess formation. continue daptomycin Terbinafine 250 mg x1 was given. Discontinued. WBC 18.35 --> 17.44, recheck CBC in a.m. may need surgery consult for possible I&D, but draining on its own at this time. Warm Compresses QID. (2) Tinea capitis: Plan: As per 1 Severe Seborrhea vs. Tinea. Procal: negative Previous long history of 3-4 month before acute presentation Terbinafine added for coverage but stopped due to positive MRSA culture - treating with Daptomycin. topical treatment once infection improved (3) Hypertension: Plan: Continue Losartan- HCTZ BPs within acceptable range (4) Diabetes type 2, uncontrolled: Plan: Last HBA1C: 8.9( 11/15) Admitted for DKA in [facility] in September Normal home regimen: Insulin long acting 40 U and Regular sliding insulin at home Changed to Lantus 25units and Premeal short acting - blood glucose has been acceptable with 1 high the last 24 hours (5) Hypothyroidism: Plan: Levothyroxine 112 mcg - continue current dose TSH (11/15): 0.4 Repeat on 12/09 = 1.131. (6) Chronic kidney disease, stage III (moderate): Plan: Cr 2.43 --> 2.17 K 3.8 - Avoid nephrotoxic agents check BMP in a.m. Plan obstructive sleep apnea chronic heart failure morbid obesity BMI 35.9 history of pulmonary embolismanticoagulated on apixaban DVT prophylaxis: Lona lives at [facility], uses wheelchair/walker for mobility PT/OT updated his brother at bedside 12/10, his daughter Carolyne 12/12 by phone ([phone]) Admission and Anticipated Discharge Date Admission Date: December 11, 2023 Subjective Gerry does not feel great today but cannot elaborate, the back of his head remains tender and continues draining Physical Exam 2 Physical Exam: PHYSICAL EXAMINATION Last 24h vital signs reviewed, see documentation in flowsheet General: awake alert sitting up in the chair HEENT: pupils round and equal, sclerae anicteric, no conjunctival injection, moist mucus membranes 15 cm area of cellulitis left posterior scalp has significantly improved with respect to induration and erythema which is improved and darkening, continues to have fluctuance and drainage of pus from multiple sinus tracts as able to express about a teaspoon of pus. Most concerning areas are inferior approximately 7 o'clock position where there is firm nodularity in this area is not clearly draining, there is also a 2 cm discrete carbuncle at about 2:00 to the main lesion that is probably a small abscess, this is also not draining currently Lungs: Normal respiratory effort. Clear to auscultation bilaterally. No RRW Heart: Regular rate and rhythm, no murmurs. No JVD Abdomen: Soft, nontender, nondistended. Bowel sounds present. Extremities: Warm, dry, well-perfused. No extremity edema. Neuro: Alert and oriented x hospital and basic situation, vague historian/forgetful, face symmetric, moves 4 extremities well Psych: Normal affect and behavior Results & Data Results & Data Vital Signs (Past 12 Hours) Vital Signs Temp Pulse Resp BP Pulse Ox O2 Del Method 12/13/23 07:11 36.5 C 62 18 149/73 H 95 Room Air Laboratory Results 12/11/23 19:02 12/12/23 05:46 PG Care Time/CCT Total # of Minutes Spent Total Time Spent with Patient: Total time spent is greater than 50% in coordination of care (as documented) at patient's floor/unit and/or counseling patient: Coding Level of Care Code 64565 SUB INP/OBS CARE 2/35MIN Diagnoses Scalp abscess L02.811 Tinea capitis B35.0 Primary hypertension I10 Hypertension type: primary hypertension Uncontrolled type 2 diabetes mellitus with hypoglycemia without coma E11.649 Glycemic state: with hypoglycemia Coma presence: without coma Hypothyroidism, unspecified type E03.9 Hypothyroidism type: unspecified Stage 3b chronic kidney disease N18.32 Chronic kidney disease stage 3 subtype: stage 3b (GFR 30-44) (3) Hypertension Hypertension type: primary hypertension Qualified Code(s): I10 - Essential (primary) hypertension (4) Diabetes type 2, uncontrolled Glycemic state: with hypoglycemia Coma presence: without coma Qualified Code(s): E11.649 - Type 2 diabetes mellitus with hypoglycemia without coma (5) Hypothyroidism Hypothyroidism type: unspecified Qualified Code(s): E03.9 - Hypothyroidism, unspecified (6) Chronic kidney disease, stage III (moderate) Chronic kidney disease stage 3 subtype: stage 3b (GFR 30-44) Qualified Code(s): N18.32 - Chronic kidney disease, stage 3b
[2023-12-14 08:07] LABS: BUN Creatinine Ratio 13.3 (10-20); Calcium 8.7 mg/dl (8.6-10.3); Creatinine Clr Calc Pharmacy 34.1 ml/min; Est GFR (African American) 31.5 ml/min; Est GFR (Non-African American) 27.2 ml/min
[2023-12-14 08:38] LABS: Hematocrit (blood only) 37.3 % (42.0-52.0); Hemoglobin 11.5 g/dl (14.0-18.0); Mean Corpuscular Hemoglobin 26.5 pg (25.0-34.0); Mean Corpuscular Hgb Conc 30.8 g/dL (32.0-36.0); Mean Corpuscular Volume 85.9 fL (80.0-100.0); Mean Platelet Volume 10.1 fL (9.4-12.4); Platelet Count 308 K/uL (130-400); RDW Coefficient of Variation 14.4 % (11.5-14.5); RDW Standard Deviation 44.9 fL (36.4-46.3); Red Blood Count 4.34 M/uL (4.70-6.10); White Blood Count 9.44 K/ul (4.8-10.8)
--- NOTE | 2023-12-14 15:47 | Hospitalist Progress Note ---
Date of Service December 14, 2023 Assessment & Plan (1) Scalp abscess: Plan: 2nd to MRSA Abscess with extensive cellulitis Although his WBC count has normalized and the area of concern is draining the appearance of this region is very poor Scalp ultrasound obtained - no discrete abscess today [id number] does this area need debridement and further I/D? I have asked gen surg to see in consult Appreciate their opinion Cont warm compresses, cont tylenol prn, cont daptomycin IV - day #4 of such today (first dose was 12/11/23) (2) Tinea capitis: Plan: Severe Seborrhea vs tinea vs other He is not on antifungal therapy at this time Consider sending scalp scrapings for fungal assessment and culture (3) Hypertension: Plan: Continue Losartan- HCTZ Continue meto succ Continue terazosin (4) Diabetes type 2, uncontrolled: Plan: Last HBA1C 8.9% Admitted for DKA [facility] in September 2023 During that admission he had periods of delirium, and MRI Brain (by way of d/c summary) showed old stroke Cont basal-bolus insulin No changes today (5) Hypothyroidism: Plan: Cont Levothyroxine 112 mcg daily TSH 1.131 (6) Chronic kidney disease, stage III (moderate): Plan: stage 3b, baseline CrCl low 30s creatinine today stable in low 2's (7) Sleep apnea: Plan: pt's lethargy may be due to hypercapnia from untreated VIRGEN VBG today with mild respiratory acidosis start BIPAP at HS (8) Cardiac pacemaker: Plan: per records had interrogation done in September 2023 this showed episodes of PAF cont metoprolol succ Eliquis to be placed on hold in the event he needs I/D and/or debridement for #1 (9) Acute metabolic encephalopathy: Plan: 2nd to hypercapnia, #1, etc. BIPAP at HS for hypercapnia ammonia checked today and was negative try to get MRI brain report from 09/26 done at [facility] (10) History of DVT (deep vein thrombosis): Plan: RLE per records from 09/26 at [facility] has been on Eliquis since then Plan DVT prophylaxis: Eliquis Dispo - [facility]; uses wheelchair/walker for mobility PT/OT updated his brother by phone this evening care d/w gen surg Admission and Anticipated Discharge Date Admission Date: December 11, 2023 Subjective patient was sleeping when I arrived to check on him he was very difficult to arouse when he did wake up he could barely keep his eyes open, stating "I'm so tired" he would quickly fall back asleep he could not offer any meaningful history or ROS due to his lethargy Review of Systems Review of Systems: Unobtainable due to cognitive status Physical Exam Physical Exam: gen - obese, lethargic, sleeping/snoring head - scalp - posterior occipital region with copious bloody drainage which was all over his pillow; the occipital region was fluctuant, swollen, and inflamed; there were areas of yellow material (purulence) scattered throughout this region; tender to palpation neck - no JVD mouth - lips moist heart - RRR, s1 s2, no murmur lungs - CTA b/l abd - soft, umbilical hernia present, BS+, NT ext - no edema, pulses 2+ b/l psych - lethargic, oriented to person only Results & Data Results & Data Vital Signs (Past 12 Hours) Vital Signs Temp Pulse Resp BP Pulse Ox O2 Del Method 12/14/23 15:18 36.6 C 62 18 148/80 H 97 Room Air 12/14/23 07:24 36.7 C 67 17 157/82 H 97 Room Air Laboratory Results Laboratory Results - last 24 hr 12/14/23 12/14/23 12/14/23 07:26 07:27 11:27 WBC 9.44 RBC 4.34 L Hgb 11.5 L Hct 37.3 L MCV 85.9 MCH 26.5 MCHC 30.8 L RDW Std Deviation 44.9 RDW Coeff of Rito 14.4 Plt Count 308 MPV 10.1 VBG pH VBG pCO2 VBG pO2 VBG HCO3 VBG O2 Saturation VBG Base Excess Sodium 138 Potassium 4.0 Chloride 106 Carbon Dioxide 27 Anion Gap 5 BUN 30 H Creatinine 2.26 H Est Cr Clr Drug Dosing 34.1 Est GFR ( Amer) 31.5 Est GFR (Non-Af Amer) 27.2 BUN/Creatinine Ratio 13.3 Glucose 182 H POC Glucose 175 H 186 H Calcium 8.7 Ammonia 12/14/23 12/14/23 12/14/23 16:47 17:12 17:42 WBC RBC Hgb Hct MCV MCH MCHC RDW Std Deviation RDW Coeff of Rito Plt Count MPV VBG pH 7.34 L VBG pCO2 52 H VBG pO2 25 VBG HCO3 28 VBG O2 Saturation < 60.0 VBG Base Excess 1.4 Sodium Potassium Chloride Carbon Dioxide Anion Gap BUN Creatinine Est Cr Clr Drug Dosing Est GFR ( Amer) Est GFR (Non-Af Amer) BUN/Creatinine Ratio Glucose POC Glucose 181 H Calcium Ammonia 22.0 12/14/23 20:16 WBC RBC Hgb Hct MCV MCH MCHC RDW Std Deviation RDW Coeff of Rito Plt Count MPV VBG pH VBG pCO2 VBG pO2 VBG HCO3 VBG O2 Saturation VBG Base Excess Sodium Potassium Chloride Carbon Dioxide Anion Gap BUN Creatinine Est Cr Clr Drug Dosing Est GFR ( Amer) Est GFR (Non-Af Amer) BUN/Creatinine Ratio Glucose POC Glucose 184 H Calcium Ammonia Diagnostic Findings Head/Neck Ultrasound 12/14/23 15:46 . US soft tissue head and neck CLINICAL HISTORY: posterior occipital scalp skin abscess COMPARISON STUDY: Head CT 12/10/2023. FINDINGS: Real-time sonographic imaging of the left posterior scalp was performed with technical sales representative images submitted. There is skin thickening and subcutaneous edema again noted throughout the left posterior scalp consistent with a cellulitis. No loculated fluid collections identified to confirm an abscess. IMPRESSION: Skin thickening and subcutaneous edema noted throughout the left posterior scalp suggestive of a cellulitis. No loculated fluid collections at this time to suggest an abscess. ACT 112: Negative or not required by law. Electronically signed by: Damon Davies M.D. 12/14/2023 7:30 PM PG Care Time/CCT Total # of Minutes Spent Total Time Spent with Patient: Total time spent is greater than 50% in coordination of care (as documented) at patient's floor/unit and/or counseling patient: Coding Level of Care Code 05318 SUB INP/OBS CARE 3/50MIN Diagnoses Scalp abscess L02.811 Tinea capitis B35.0 Primary hypertension I10 Hypertension type: primary hypertension Uncontrolled type 2 diabetes mellitus with hypoglycemia without coma E11.649 Coma presence: without coma Glycemic state: with hypoglycemia Hypothyroidism, unspecified type E03.9 Hypothyroidism type: unspecified Stage 3b chronic kidney disease N18.32 Chronic kidney disease stage 3 subtype: stage 3b (GFR 30-44) Sleep apnea G47.30 Cardiac pacemaker Z95.0 Acute metabolic encephalopathy G93.41 History of DVT (deep vein thrombosis) Z86.718 (3) Hypertension Hypertension type: primary hypertension Qualified Code(s): I10 - Essential (primary) hypertension (4) Diabetes type 2, uncontrolled Coma presence: without coma Glycemic state: with hypoglycemia Qualified Code(s): E11.649 - Type 2 diabetes mellitus with hypoglycemia without coma (5) Hypothyroidism Hypothyroidism type: unspecified Qualified Code(s): E03.9 - Hypothyroidism, unspecified (6) Chronic kidney disease, stage III (moderate) Chronic kidney disease stage 3 subtype: stage 3b (GFR 30-44) Qualified Code(s): N18.32 - Chronic kidney disease, stage 3b
[2023-12-14 17:51] LABS: Base Excess VBG 1.4 mEq/L; HCO3 VBG 28 mmol/L; Oxygen Saturation VBG < 60.0 %; PCO2 VBG 52 mmHg (38-50); PO2 VBG 25 mmHg; pH VBG 7.34 (7.36-7.41)
--- NOTE | 2023-12-14 19:33 | Ultrasound Report ---
. US soft tissue head and neck CLINICAL HISTORY: posterior occipital scalp skin abscess COMPARISON STUDY: Head CT 12/10/2023. FINDINGS: Real-time sonographic imaging of the left posterior scalp was performed with printing supplies sales representative images submitted. There is skin thickening and subcutaneous edema again noted throughout the left po sterior scalp consistent with a cellulitis. No loculated fluid collections identified to confirm an a bscess. IMPRESSION: Skin thickening and subcutaneous edema noted throughout the left posterior scalp suggest sarbjit of a cellulitis. No loculated fluid collections at this time to suggest an abscess. ACT 112: Negative or not required by law. Electronically signed by: Damon Davies M.D. 12/14/2023 7:30 PM
--- NOTE | 2023-12-14 19:59 | Surgery Consultation ---
Date of Consultation December 14, 2023 Assessment & Plan (1) Scalp abscess: The patient has been admitted on the hospitalist service. Conservative spectrum we recommend the following: Continue to follow serial labs Continue antibiotics in form of daptomycin as this will cover the identified organism on his scalp culture I discussed with the medical service and we will place the patient's Eliquis on holdhe did receive his a.m. dose this morning which was 12/14/2023 Will make the patient n.p.o. after midnight The patient be evaluated by Dr. Bai of [facility] surgery and he will make a determination if the scalp abscess in question can be drained at the bedside if he needs to go to the operating room. He also determine if this procedure will be done tomorrow or we will wait 24 to 48 hours for the patient to be off his Eliquis to minimize the chance of any bleeding. Addition additional recommendations be forthcoming based on his clinical course as it unfolds History of Present Illness Reason for Consultation: Scalp abscess Attending Physician: Mark Vazquez MD History of Present Illness This is a 78-year-old male who has been admitted to the [facility] since 12/10/2023. The patient lives in an assisted living facility and the staff at the facility noted that the patient was not acting like himselfthat she was having increased fatigue and weakness as well as decreased appetite. The patient was noted to have a scalp abscess and he has since been treated with daptomycin and local wound care. The patient at time of presentation did have a chest x-ray that showed no evidence of pneumonia. He also had a CT scan of the head that showed soft tissue swelling in the posterior left occiput with a small fluid collection concerning for small abscess. Throughout the course of patient's hospitalization the area in question on his posterior occiput has been draining purulent material. The patient ultimately underwent an ultrasound of this area earlier today (12/14/2023) that showed skin thickening and subcutaneous edema throughout the left posterior scalp suggestive of cellulitis. There were no loculated fluid collections to suggest abscess on the study. The patient's most recent labs are from today which include CBC were white blood cell count platelet count are normal. Hemoglobin and Mattock are 11.5 and 37.3. Chemistry profile showed sodium and potassium were normal. His BUN and creatinine were 30 and 2.2. The patient has had a scalp culture done which grew staph consistent with MRSA. I did question the patient about the scalp abscess he has and he is unsure how he obtained this. He does not feel as though he suffered any cuts, scratches, or excoriations. He denies any falls or head injuries. Patient notes that he does not ambulate very much. He denies any fevers, shakes, or chills. At the time of my interview he was resting comfortably bed he was no distress. Allergies Allergy/AdvReac Type Severity Reaction Status Date / Time cefaclor AdvReac Intermediate RASH Verified 07/29/23 11:35 oxycodone AdvReac Intermediate "I GET ALL Verified 07/29/23 11:35 GOOFY" Home Medications Medication Instructions Recorded Confirmed Type sharps container-insulin syringe ##1 10/05/18 07/29/23 History and needle 1 mL 30 gauge x 5/16" acetaminophen 325 mg capsule 650 mg PO TID PRN Pain 02/13/20 12/11/23 History (Tylenol) clotrimazole 1 % topical cream 1 applic topical BID PRN Skin 03/17/21 12/11/23 History (Lotrimin AF (clotrimazole)) Irritation aspirin 81 mg tablet,delayed 81 mg PO QAM 05/28/21 12/11/23 History release flash glucose scanning reader 07/04/21 07/29/23 History (FreeStyle Maisha 2 [place]) lancets 30 gauge (OneTouch Delica 07/04/21 07/29/23 History Plus Lancet) flash glucose sensor (FreeStyle #2 ea 07/09/21 07/29/23 Rx Maisha 2 Sensor kit) mupirocin 2 % topical ointment 1 applic topical BID #22 grams 04/16/22 12/11/23 Rx pen needle, diabetic 32 gauge x #100 ea 05/27/22 07/29/23 Rx 1/4" (BD Ultra-Fine Micro Pen Needle) furosemide 20 mg tablet 20 mg PO DAILY #90 tabs 08/28/22 12/11/23 Rx magnesium oxide 400 mg (241.3 mg See Rx Instructions .Route 12/06/22 12/11/23 Rx magnesium) tablet .COMPLEX #180 tabs apixaban 5 mg tablet (Eliquis) 5 mg PO BID #180 tabs 04/28/23 12/11/23 Rx atorvastatin 80 mg tablet 80 mg PO DAILY #90 tabs 04/28/23 12/11/23 Rx terazosin 10 mg capsule 10 mg PO DAILY #90 caps 04/28/23 12/11/23 Rx gabapentin 300 mg capsule 300 mg PO DAILY #30 caps 05/06/23 12/11/23 Rx calcitriol 0.5 mcg capsule 0.5 mcg PO DAILY #180 caps 07/06/23 12/11/23 Rx sertraline 50 mg tablet 75 mg (1.5 x 50 mg) PO DAILY #135 08/06/23 12/11/23 Rx tabs insulin degludec 100 unit/mL (3 40 unit subcut DAILY 11/11/23 12/11/23 History mL) subcutaneous pen (Tresiba FlexTouch U-100 insulin) insulin lispro 100 unit/mL 1 sliding scale dose subcut 11/11/23 12/11/23 History subcutaneous pen (Admelog SoloStar USEASDIRECTD U-) nitroglycerin 0.4 mg sublingual 0.4 mg sublingual Q5M PRN Chest 11/11/23 12/11/23 History tablet Pain ondansetron 4 mg disintegrating 4 mg PO Q8H PRN Nausea And Vomiting 11/11/23 12/11/23 History tablet pantoprazole 40 mg tablet,delayed 40 mg PO DAILY 11/11/23 12/11/23 History release polyethylene glycol 3350 17 17 g PO DAILY 11/11/23 12/11/23 History gram/dose oral powder (Miralax) potassium chloride 20 mEq 20 meq PO DAILY 11/11/23 12/11/23 History tablet,extended release ketoconazole 2 % shampoo 1 applic topical TID 2 weeks #120 12/08/23 12/11/23 Rx mL empagliflozin 25 mg tablet 25 mg PO DAILY 12/11/23 12/11/23 History (Jardiance) levothyroxine 100 mcg tablet 100 mcg PO DAILY 12/11/23 12/11/23 History losartan 100 mg tablet 100 mg PO DAILY 12/11/23 12/11/23 History metoprolol succinate 25 mg 25 mg PO BID 12/11/23 12/11/23 History tablet,extended release 24 hr tirzepatide 5 mg/0.5 mL 5 mg subcut WK 12/11/23 12/11/23 History subcutaneous pen injector (Keyla) Patient History Medical History Acute respiratory failure JUANPABLO (acute kidney injury) Colon polyps Elevated transaminase level Hematuria Tinea pedis of both feet Vitamin D deficiency Surgical History History of colonoscopy History of tonsillectomy History of mandibular surgery History of cholecystectomy History of coronary artery stent placement History of cardiac cath History of cataract surgery Family History Father Lung cancer Brother Lung disease Lung cancer Denies family history of Ovarian cancer Prostate cancer Myocardial infarction Breast cancer Colorectal cancer Social History Smoking Status: Never smoker Tobacco Type: Cigarettes and Pipe Age Started Using Tobacco: 20; Age Quit Using Tobacco: 21; Cigarettes Per Day: 15; Second Hand Exposure: Yes; Do You Dip or Chew Tobacco: No; Hx Alcohol Use: Yes Alcohol type: beer Alcohol Intake Frequency: Monthly or Less Alcohol Intake Frequency Comment: Socially Hx Substance Use: No Preferred Language: Welsh Communication Ability: Effective Visual Impairment: No Limitations Hearing Ability: Use of Hearing Aid Breastfeeding Peer Counselor Required: No Beliefs That Will Affect Care: None marital status: / Current Living Situation: Personal Care Facility current occupational status: retired 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 How many Children do You have: 2 Feels Safe at Home: Yes Safety Concerns: Feels Safe At This Time Childhood Exposure to Second-Hand Smoke: No Diet: regular Diet Comment: Regular Diet caffeine: No during the past year weight has: remained stable Dental Care, Regularly: No Physical Activity Frequency: Does not Exercise Seatbelt Use: sometimes Sunscreen Use: No Assistive Devices: Hearing Aid - Bilateral, Walker and Wheelchair Review of Systems Review of Systems: All systems reviewed & are unremarkable except as noted in HPI & below Physical Exam Physical Exam: The patient's posterior scalp was examined. The patient had approximately a 5 cm x 6 cm area of erythema. There is an open area which was draining some purulent material. I did not appreciate any crepitus in the soft tissue Constitutional: WD/WN, vitals as above Eyes: no conjunctival abnormality ENMT: Ears: no hearing impairment and no external ear abnormality Neck: No nuchal rigidity noted. Respiratory: normal respiratory effort; no respiratory distress and no labored breathing Cardiovascular: Rate/Rhythm: regular rate and regular rhythm Gastrointestinal (Abdomen): Soft and nontender Musculoskeletal: No calf tenderness Neurologic: Patient is able to move all 4 extremities and follow simple commands Results & Data Vital Signs (Past 12 Hours) Vital Signs Temp Pulse Resp BP Pulse Ox O2 Del Method 12/14/23 15:18 36.6 C 62 18 148/80 H 97 Room Air PG Care Time/CCT Total # of Minutes Spent Total Time Spent with Patient: Total time spent is greater than 50% in coordination of care (as documented) at patient's floor/unit and/or counseling patient: Coding Level of Care Code 08679 INT INP/OBS CARE 3/75MIN Diagnoses Scalp abscess L02.811
[2023-12-15] MEDS ORDERED: Nursing to Pharmacy Communication SCH ×2 (04:15→13:45)
[2023-12-15] MEDS: INSULIN ASPART PER UNIT CHARGE SC SCH ×2 (06:05→17:11)
--- NOTE | 2023-12-15 09:38 | Surgery Progress Note ---
Date of Service December 15, 2023 Assessment & Plan (1) Scalp abscess: Plan: I think he benefit from an I&D of his scalp abscess Will plan on this in the operating room later today, please keep n.p.o. His last dose of Eliquis was yesterday morning, continue to hold Consent was obtained, risks discussed including bleeding, infection, nonhealing wound, need for further procedure Admission and Anticipated Discharge Date Admission Date: December 11, 2023 Subjective Patient seen and examined. Resting comfortably on BiPAP. Afebrile. Review of Systems Constitutional: no fever and no chills Eyes: no blind spots and no discharge Ear, Nose, Mouth, Throat: no ear pain and no tinnitus Respiratory: no cough and no dyspnea Cardiovascular: no chest pain and no dyspnea on exertion Gastrointestinal: no abdominal pain, no nausea and no vomiting Genitourinary: no dysuria or no difficulty urinating Integumentary: + skin ulcer, + wounds and + erythema Psychiatric: no behavioral changes and no depression Physical Exam Constitutional: WD/WN, vitals as above Eyes: PERRL, conjunctivae normal, anicteric sclerae ENMT: external ear and nose normal, oropharynx normal Neck: trachea midline, no thyromegaly Respiratory: normal respiratory effort, lungs clear to auscultation Cardiovascular: RRR, no murmur, no edema Gastrointestinal (Abdomen): normal bowel sounds, soft, nontender, no hepatosplenomegaly Musculoskeletal: no cyanosis or clubbing, extremities motor strength 5/5 Skin: no rashes, warm and dry Fluctuant posterior scalp abscess with small amount of drainage able to be expressed Psychiatric: A+Ox3, euthymic affect Results & Data Vital Signs (Past 12 Hours) Vital Signs Temp Pulse Pulse Resp BP BP Pulse Ox 12/15/23 08:44 70 17 97 12/15/23 07:33 36.4 C L 60 16 157/86 H 95 12/14/23 23:06 77 18 176/82 H 94 12/14/23 22:14 73 16 175/103 H 96 O2 Del Method FiO2 12/15/23 08:44 21 12/15/23 07:33 Room Air 12/14/23 23:06 Room Air 12/14/23 22:14 Room Air PG Care Time/CCT Total # of Minutes Spent Total Time Spent with Patient: Total time spent is greater than 50% in coordination of care (as documented) at patient's floor/unit and/or counseling patient: Coding Level of Care Code 85540 SUB INP/OBS CARE 04/29MIN Diagnoses Scalp abscess L02.811
[2023-12-15] MEDS: LACTATED RINGER'S 1,000 ML IV SCH (10:37)
--- NOTE | 2023-12-15 11:51 | Anesthesiology Consultation ---
Date of Service December 15, 2023 Assessment & Plan Chart Review Chart Review: Acceptable Risk for Surgery Consults Requested none History Surgery Operation Date: 12/15/23 08:25 Proposed Procedures p Incision and Drainage of Scalp Mass - Sarbjit Bai DO Height/Weight Height: 5 ft 9 in Weight: 110.4 kg Allergies Allergy/AdvReac Type Severity Reaction Status Date / Time cefaclor AdvReac Intermediate RASH Verified 07/29/23 11:35 oxycodone AdvReac Intermediate "I GET ALL Verified 07/29/23 11:35 GOOFY" Medications Home Medications Medication Instructions Recorded Confirmed Last Taken sharps container-insulin syringe ##1 10/05/18 07/29/23 Unknown and needle 1 mL 30 gauge x 08/18" acetaminophen 325 mg capsule 650 mg PO TID PRN Pain 02/13/20 12/11/23 Unknown (Tylenol) clotrimazole 1 % topical cream 1 applic topical BID PRN Skin 03/17/21 12/11/23 Unknown (Lotrimin AF (clotrimazole)) Irritation aspirin 81 mg tablet,delayed 81 mg PO QAM 05/28/21 12/11/23 05/28/21 release flash glucose scanning reader 07/04/21 07/29/23 Unknown (FreeStyle Maisha 2 Raymond) lancets 30 gauge (OneTouch Delica 07/04/21 07/29/23 Unknown Plus Lancet) flash glucose sensor (FreeStyle #2 ea 07/09/21 07/29/23 Unknown Maisha 2 Sensor kit) mupirocin 2 % topical ointment 1 applic topical BID #22 grams 04/16/22 12/11/23 Unknown pen needle, diabetic 32 gauge x #100 ea 05/27/22 07/29/23 Unknown 1/4" (BD Ultra-Fine Micro Pen Needle) furosemide 20 mg tablet 20 mg PO DAILY #90 tabs 08/28/22 12/11/23 Unknown magnesium oxide 400 mg (241.3 mg See Rx Instructions .Route 12/06/22 12/11/23 Unknown magnesium) tablet .COMPLEX #180 tabs apixaban 5 mg tablet (Eliquis) 5 mg PO BID #180 tabs 04/28/23 12/11/23 Unknown atorvastatin 80 mg tablet 80 mg PO DAILY #90 tabs 04/28/23 12/11/23 Unknown terazosin 10 mg capsule 10 mg PO DAILY #90 caps 04/28/23 12/11/23 Unknown gabapentin 300 mg capsule 300 mg PO DAILY #30 caps 05/06/23 12/11/23 Unknown calcitriol 0.5 mcg capsule 0.5 mcg PO DAILY #180 caps 07/06/23 12/11/23 Unknown sertraline 50 mg tablet 75 mg (1.5 x 50 mg) PO DAILY #135 08/06/23 12/11/23 Unknown tabs insulin degludec 100 unit/mL (3 40 unit subcut DAILY 11/11/23 12/11/23 Unknown mL) subcutaneous pen (Tresiba FlexTouch U-100 insulin) insulin lispro 100 unit/mL 1 sliding scale dose subcut 11/11/23 12/11/23 Unknown subcutaneous pen (Admelog SoloStar USEASDIRECTD U-) nitroglycerin 0.4 mg sublingual 0.4 mg sublingual Q5M PRN Chest 11/11/23 12/11/23 Unknown tablet Pain ondansetron 4 mg disintegrating 4 mg PO Q8H PRN Nausea And Vomiting 11/11/23 12/11/23 Unknown tablet pantoprazole 40 mg tablet,delayed 40 mg PO DAILY 11/11/23 12/11/23 Unknown release polyethylene glycol 3350 17 17 g PO DAILY 11/11/23 12/11/23 Unknown gram/dose oral powder (Miralax) potassium chloride 20 mEq 20 meq PO DAILY 11/11/23 12/11/23 Unknown tablet,extended release ketoconazole 2 % shampoo 1 applic topical TID 2 weeks #120 12/08/23 12/11/23 Unknown mL empagliflozin 25 mg tablet 25 mg PO DAILY 12/11/23 12/11/23 Unknown (Jardiance) levothyroxine 100 mcg tablet 100 mcg PO DAILY 12/11/23 12/11/23 Unknown losartan 100 mg tablet 100 mg PO DAILY 12/11/23 12/11/23 Unknown metoprolol succinate 25 mg 25 mg PO BID 12/11/23 12/11/23 Unknown tablet,extended release 24 hr tirzepatide 5 mg/0.5 mL 5 mg subcut WK 12/11/23 12/11/23 Unknown subcutaneous pen injector (Keyla) Active Medications Generic Name Dose Route Start Last Admin Trade Name Freq PRN Reason Stop Dose Admin Acetaminophen 650 mg 12/11/23 02:29 12/14/23 22:17 Acetaminophen 325 Mg Tab PO 01/10/24 02:28 650 mg Q4H PRN Administration pain/fever Apixaban 5 mg 12/11/23 02:45 12/14/23 07:45 Apixaban 5 Mg Tablet PO 01/10/24 02:44 5 mg BID DARREN Administration Aspirin 81 mg 12/11/23 09:00 12/15/23 07:49 Aspirin 81 Mg Ectab PO 01/10/24 08:59 81 mg DAILY DARREN Administration Calcitriol 0.5 mcg 12/11/23 09:00 12/15/23 07:49 Calcitriol 0.25 Mcg Capsule PO 01/10/24 08:59 0.5 mcg DAILY DARREN Administration Gabapentin 300 mg 12/11/23 09:00 12/15/23 07:50 Gabapentin 300 Mg Cap PO 01/10/24 08:59 300 mg DAILY DARREN Administration HCTZ/Losartan Potassium 1 tab 12/11/23 09:00 12/15/23 07:49 Losartan/Hctz 50/12.5mg Tab PO 01/10/24 08:59 1 tab DAILY DARREN Administration Daptomycin 350 mg/ Syringe 7 mls @ 3.5 mls/min 12/11/23 03:30 12/15/23 02:56 IV 12/18/23 03:29 3.5 mls/min Q24H DARREN Administration Protocol Lactated Ringer's 1,000 mls @ 15 mls/hr 12/15/23 10:30 12/15/23 10:37 Lr IV 01/14/24 10:29 15 mls/hr .Q24H DARREN Administration Insulin Aspart 0 units 12/15/23 06:00 12/15/23 06:05 Insulin Aspart Per Unit Charge SC 01/14/24 05:59 1 units Q6 DARREN Administration Insulin Glargine 25 units 12/11/23 09:00 12/15/23 07:52 Lantus Per Unit Charge SQ 01/10/24 08:59 Not Given DAILY DARREN Levothyroxine Sodium 112 mcg 12/11/23 06:30 12/15/23 06:05 Levothyroxine Sodium 112 Mcg Tablet PO 01/10/24 06:29 112 mcg DAILYBB DARREN Administration Magnesium Oxide 400 mg 12/11/23 09:00 12/15/23 07:48 Magnesium Oxide 400 Mg Tab PO 01/10/24 08:59 400 mg BID DARREN Administration Melatonin 3 mg 12/11/23 02:29 12/11/23 20:45 Melatonin 3 Mg Tab PO 01/10/24 02:28 3 mg HS PRN Administration Insomnia Metoprolol Succinate 50 mg 12/11/23 02:29 12/15/23 07:48 Metoprolol Succ 50mg Ext Rel Tab PO 01/10/24 02:28 50 mg BID DARREN Administration Pantoprazole Sodium 40 mg 12/11/23 09:00 12/15/23 07:50 Pantoprazole 40 Mg Tab PO 01/10/24 08:59 40 mg DAILY DARREN Administration Polyethylene Glycol 17 gm 12/11/23 02:29 12/13/23 09:52 Polyethylene (Miralax) 17 Gm Pack PO 01/10/24 02:28 17 gm DAILY PRN Administration Constipation Potassium Chloride 20 meq 12/11/23 09:00 12/15/23 08:01 Potassium Chloride Crtab 20 Meq Tabcr PO 01/10/24 08:59 20 meq DAILY DARREN Administration Sertraline HCl 75 mg 12/11/23 09:00 12/15/23 07:49 Sertraline Hcl 50 Mg Tablet PO 01/10/24 08:59 75 mg DAILY DARREN Administration Terazosin HCl 10 mg 12/11/23 09:00 12/15/23 07:50 Terazosin Hcl 5 Mg Cap PO 01/10/24 08:59 10 mg DAILY DARREN Administration Triamcinolone Acetonide 1 appln 12/11/23 02:29 12/11/23 08:30 Triamcinolone Acet 0.1% Cr 80 Gm Tube TOP 01/10/24 02:28 1 appln BID PRN Administration BL legs NPO Date Last Intake of Fluids: 12/14/23 Time Last Intake of Fluids: 23:59 Date Last Intake of Solids: 12/14/23 Time Last Intake of Solids: 17:00 Past Medical History Medical History Acute respiratory failure JUANPABLO (acute kidney injury) Colon polyps Elevated transaminase level Hematuria Tinea pedis of both feet Vitamin D deficiency Past Family History Family History Father Lung cancer Brother Lung disease Lung cancer Denies family history of Ovarian cancer Prostate cancer Myocardial infarction Breast cancer Colorectal cancer Past Surgical History Surgical History History of colonoscopy History of tonsillectomy History of mandibular surgery History of cholecystectomy History of coronary artery stent placement History of cardiac cath History of cataract surgery Social History Smoking Status: Never smoker Smoking cigarettes per day: 15 Do You Dip or Chew Tobacco: No Hx Alcohol Use: Yes Alcohol type: beer alcohol intake frequency: a few times a month Hx Substance Use: No substance use type: does not use Physical Exam Vital Signs Last Vital Signs Temp 36.4 C L 12/15/23 10:30 Pulse 64 12/15/23 10:30 Resp 20 12/15/23 10:30 BP 163/72 H 12/15/23 10:30 Pulse Ox 96 12/15/23 10:30 O2 Del Method Room Air 12/15/23 10:30 FiO2 21 12/15/23 08:44 Testing Laboratory Results 12/14/23 07:27 12/14/23 07:27 PT 12.2 Seconds (9.0-12.0) H 12/10/23 19:15 INR 1.1 (0.9-1.1) 12/10/23 19:15 Hemoglobin A1c 8.7 % (4.5-5.6) H 12/10/23 19:15 12/10/23 19:36 Gram Stain - Final Scalp Wound Culture - Final Staph aureus MRSA 12/15/23 12/15/23 10:21 06:01 POC Glucose 179 H 156 H
[2023-12-15] MEDS ORDERED: PROPOFOL IV EMULSION 10 MG/ML 20 ML VIAL IV ONE (11:55)
[2023-12-15] MEDS ORDERED: fentaNYL citrate PF 100 MCG/2 ML VIAL ONE (11:55)
[2023-12-15] MEDS ORDERED: LIDOCAINE 2% 2 ML VIAL/AMP(20MG/ML) INFIL ONE (11:56)
[2023-12-15] MEDS ORDERED: KETAMINE HCL 10MG/ML SYR ONE (11:57)
[2023-12-15] MEDS ORDERED: MIDAZOLAM HCL 1 MG/ML 2ML VIAL ONE (12:10)
[2023-12-15] MEDS: BUPIVACAINE/EPINEPHRINE 0.5% MPF 1:200,000 30 ML VIAL ONE (12:35)
--- NOTE | 2023-12-15 12:38 | Post Operative Brief Note ---
PG Immediate Post Op with CF Date of Surgery December 15, 2023 Pre & Post Diagnosis Operation Date: 12/15/23 08:25 Pre-Op Diagnosis: Scalp abscess Post-Op Diagnosis: Scalp abscess x 2 I identified the patient and participated in the time-out.: Yes Procedure Operation Date: 12/15/23 08:25 Actual Procedures p Incision and Drainage of Scalp Abscess x 2(Not Applicable) - Sarbjit Bai DO Surgeon Sarbjit Bai DO Slate Picker Hector CATHERINE Estimated Blood Loss 5 Findings See Below 2 small areas of abscess in the occipital scalp Specimens Specimen Description: Scalp abscess fluid for culture Anesthesia Type MAC Complications none Disposition Disposition: Recovery Room
--- NOTE | 2023-12-15 12:41 | Operative Report ---
PG Post Operative Report Pre & Post Diagnosis Operation Date: 12/15/23 08:25 Pre-Op Diagnosis: Scalp abscess Post-Op Diagnosis: Scalp abscess I identified the patient and participated in the time-out.: Yes Procedure Operation Date: 12/15/23 08:25 Actual Procedures p Incision and Drainage of Scalp Abscess x 2(Not Applicable) - Sarbjit Bai DO Surgeon Sarbjit Bai DO Health And Wellness Sales Consultant Hector CATHERINE Estimated Blood Loss 5 Findings See Below 2 separate scalp abscesses in the occiput Specimens Scalp abscess fluid for culture Drains None Anesthesia Type MAC Complications none Disposition Disposition: Recovery Room Indications 78-year-old male with scalp cellulitis and abscess Description of Procedure The patient was brought to the OR and placed in the prone position. At this time he underwent MAC anesthesia without issue. He was given appropriate pre- operative antibiotics. The posterior scalp was prepped and draped in the usual sterile fashion. A timeout was called. The procedure was verified as Incision and drainage of the scalp abscess. Surgical, anesthesia and nursing teams agreed and the procedure was begun. Upon examination there were actually 2 separate areas of the scalp that were 2 small abscesses. After injection of 0.25% Marcaine with epinephrine, an incision was made directly over the most fluctuant area of both abscesses using a #11 blade scalpel. Purulent fluid was encountered. Wide drainage was ensured. All loculations were broken up bluntly. At this time the incision was irrigated until clear. Hemostasis was achieved using electrocautery. Hemostasis was complete. The incisions were packed with half-inch plain gauze. Sterile dressing was applied. The patient was awakened from anesthesia and taking to PACU having remained stable throughout the entire case. All needle and sponge counts correct x 2. The nurse practitioner was present and scrubbed for the entire case. She was essential in positioning, prepping and draping the patient, retraction and exposure, placement of dressings. I attest to the content of the Intraoperative Record and any orders documented therein. Any exceptions are noted below.
--- NOTE | 2023-12-15 13:17 | Anesthesiology Progress Note ---
Date of Service December 15, 2023 Anesthesia Post Procedure Vital Signs Vital Signs: Temp Pulse Pulse Pulse Resp BP BP 12/15/23 13:10 36.4 C L 62 14 117/56 L 12/15/23 13:00 61 14 104/58 L 12/15/23 12:50 61 14 104/53 L 12/15/23 12:44 36 C L 66 16 91/49 L 12/15/23 10:30 36.4 C L 64 20 163/72 H 12/15/23 08:44 70 17 12/15/23 07:33 36.4 C L 60 16 157/86 H 12/14/23 23:06 77 18 176/82 H 12/14/23 22:14 73 16 175/103 H 12/14/23 20:12 36.3 C L 18 192/98 H 12/14/23 15:18 36.6 C 62 18 148/80 H Pulse Ox O2 Del Method FiO2 12/15/23 13:10 95 Room Air 12/15/23 13:00 95 Room Air 12/15/23 12:50 95 Room Air 12/15/23 12:44 98 Room Air 12/15/23 10:30 96 Room Air 12/15/23 08:44 97 21 12/15/23 07:33 95 Room Air 12/14/23 23:06 94 Room Air 12/14/23 22:14 96 Room Air 12/14/23 20:12 94 Room Air 12/14/23 15:18 97 Room Air Pain Intensity Posterior Head: Pain Intensity: 6 Transfer of Care Handoff Completed per policy Notes Mental Status: alert / awake / arousable and participated in evaluation Patient Amnestic to Procedure: Yes Nausea / Vomiting: adequately controlled Pain: adequately controlled Airway Patency, RR, SpO2: stable & adequate BP & HR: stable & adequate Hydration State: stable & adequate Anesthetic Complications: no major complications apparent
[2023-12-15] MEDS ORDERED: OLANZAPINE 2.5 MG TAB PO PRN (18:16)
--- NOTE | 2023-12-15 18:17 | Hospitalist Progress Note ---
Date of Service December 15, 2023 Assessment & Plan (1) Scalp abscess: Plan: 2nd to MRSA Abscess present with extensive cellulitis Cont warm compresses if desired, cont tylenol prn, cont daptomycin IV - day #5 of such today (first dose was 12/11/23) s/p I/D in the OR today by Dr Bai - gen surg 2 abscesses were I/D and packed with packing material culture sent appreciate his assistance (2) Tinea capitis: Plan: Severe Seborrhea vs tinea vs other He is not on antifungal therapy at this time Consider sending scalp scrapings for fungal assessment and culture (3) Hypertension: Plan: Continue Losartan- HCTZ Continue meto succ Continue terazosin Controlled (4) Diabetes type 2, uncontrolled: Plan: Last HBA1C 8.9% Admitted for DKA [facility] in September 2023 During that admission he had periods of delirium, and MRI Brain (by way of d/c summary) showed old stroke Cont basal-bolus insulin No changes today (5) Hypothyroidism: Plan: Cont Levothyroxine 112 mcg daily TSH 1.131 (6) Chronic kidney disease, stage III (moderate): Plan: stage 3b, baseline CrCl low 30s repeat BMP am for stability (7) Sleep apnea: Plan: pt's lethargy may be due to hypercapnia from untreated VIRGEN VBG yesterday with mild respiratory acidosis cont BIPAP at HS and naps (8) Cardiac pacemaker: Plan: per records had interrogation done in September 2023 this showed episodes of PAF cont metoprolol succ Eliquis on hold due to I/D in OR today Hopefully can resume tomorrow (9) Acute metabolic encephalopathy: Plan: 2nd to hypercapnia, #1, etc. BIPAP at HS for hypercapnia ammonia checked and was negative try to get MRI brain report from 09/26 done at [facility] (10) History of DVT (deep vein thrombosis): Plan: RLE per records from 09/26 at [facility] has been on Eliquis since then Eliquis today on hold due to I/D in the OR hopefully can resume tomorrow AM Plan DVT prophylaxis: Eliquis Dispo - [facility]; uses wheelchair/walker for mobility PT/OT updated his brother by phone 12/14/23 appreciate gen surg assistance Admission and Anticipated Discharge Date Admission Date: December 11, 2023 Subjective patient went to the OR today with Dr Bai for I/D of his MRSA abscesses on his posterior occipital scalp 2 abscesses were I/D by Dr Bai by nursing report he did use BIPAP for a few hours this am he continues to sund at night-time and is sleepy during the day I saw the patient in the late afternoon following his surgery he again was sleepy, but did wake up and voiced he was hungry and wanted to eat he actually sat up in bed without any assistance and started to eat he was confused, having a hard time describing why he is in the hospital unable to give much in the way of history or ROS today did state that his head was not bothering him Review of Systems Review of Systems: pulm - denied any dyspnea CV - no chest pain GI - no abd pain; last stool ? Physical Exam Physical Exam: gen - obese, sleeping initially, but did wake up to his name being called head - scalp - posterior occipital region -- 2 abscess sites present with packing material present in both; scalp itself less swollen/boggy today; large amount of dressings in place neck - no JVD mouth - MM dry heart - RRR, s1 s2, no murmur lungs - CTA b/l abd - soft, umbilical hernia present but reducible, BS+, NT ext - no edema, pulses 2+ b/l psych - more awake, more alert today Results & Data Results & Data Vital Signs (Past 12 Hours) Vital Signs Temp Pulse Pulse Pulse Resp BP BP 12/15/23 16:36 36.4 C L 61 16 175/84 H 12/15/23 15:37 36.4 C L 60 16 162/83 H 12/15/23 14:41 36.4 C L 74 16 117/73 12/15/23 14:03 63 16 147/76 H 12/15/23 13:35 36.4 C L 60 15 139/80 12/15/23 13:10 36.4 C L 62 14 117/56 L 12/15/23 13:00 61 14 104/58 L 12/15/23 12:50 61 14 104/53 L 12/15/23 12:44 36 C L 66 16 91/49 L 12/15/23 10:30 36.4 C L 64 20 163/72 H 12/15/23 08:44 70 17 12/15/23 07:33 36.4 C L 60 16 157/86 H Pulse Ox O2 Del Method FiO2 12/15/23 16:36 99 Room Air 12/15/23 15:37 96 Room Air 12/15/23 14:41 94 Room Air 12/15/23 14:03 96 Room Air 12/15/23 13:35 95 Room Air 12/15/23 13:10 95 Room Air 12/15/23 13:00 95 Room Air 12/15/23 12:50 95 Room Air 12/15/23 12:44 98 Room Air 12/15/23 10:30 96 Room Air 12/15/23 08:44 97 21 12/15/23 07:33 95 Room Air Laboratory Results Laboratory Results - last 24 hr 12/15/23 12/15/23 12/15/23 06:01 10:21 12:46 POC Glucose 156 H 179 H 184 H 12/15/23 12/15/23 16:35 20:43 POC Glucose 195 H 171 H PG Care Time/CCT Total # of Minutes Spent Total Time Spent with Patient: Total time spent is greater than 50% in coordination of care (as documented) at patient's floor/unit and/or counseling patient: Coding Level of Care Code 50247 SUB INP/OBS CARE 2MIN Diagnoses Scalp abscess L02.811 Tinea capitis B35.0 Primary hypertension I10 Hypertension type: primary hypertension Uncontrolled type 2 diabetes mellitus with hypoglycemia without coma E11.649 Coma presence: without coma Glycemic state: with hypoglycemia Hypothyroidism, unspecified type E03.9 Hypothyroidism type: unspecified Stage 3b chronic kidney disease N18.32 Chronic kidney disease stage 3 subtype: stage 3b (GFR 30-44) Sleep apnea G47.30 Cardiac pacemaker Z95.0 Acute metabolic encephalopathy G93.41 History of DVT (deep vein thrombosis) Z86.718 (3) Hypertension Hypertension type: primary hypertension Qualified Code(s): I10 - Essential (primary) hypertension (4) Diabetes type 2, uncontrolled Coma presence: without coma Glycemic state: with hypoglycemia Qualified Code(s): E11.649 - Type 2 diabetes mellitus with hypoglycemia without coma (5) Hypothyroidism Hypothyroidism type: unspecified Qualified Code(s): E03.9 - Hypothyroidism, unspecified (6) Chronic kidney disease, stage III (moderate) Chronic kidney disease stage 3 subtype: stage 3b (GFR 30-44) Qualified Code(s): N18.32 - Chronic kidney disease, stage 3b
[2023-12-15] MEDS: OLANZAPINE 2.5 MG TAB PO SCH (21:03)
[2023-12-15] MEDS: MELATONIN 3 MG TAB PO SCH (21:04)
[2023-12-16 08:33] LABS: BUN Creatinine Ratio 17.4 (10-20); Calcium 8.9 mg/dl (8.6-10.3); Creatinine Clr Calc Pharmacy 37.2 ml/min; Est GFR (Non-African American) 30.2 ml/min; Potassium 4.1 mmol/L (3.5-5.1)
--- NOTE | 2023-12-16 09:40 | Surgery Progress Note ---
Date of Service December 16, 2023 Assessment & Plan (1) Scalp abscess: Plan: POD 1 post operative dressing off , packing had fallen out nursing can cover scalp abscess with dry gauze and tape daily patient can follow up in the office a week from d/c with Dr. Bai General surgery will follow from peripheral call with questions/concerns pt seen with Dr. Bai Admission and Anticipated Discharge Date Admission Date: December 11, 2023 Subjective no complaints, post operative dressing off Review of Systems Constitutional: no fever and no chills Integumentary: + wounds Physical Exam Respiratory: normal respiratory effort; no respiratory distress Cardiovascular: Rate/Rhythm: regular rate Skin: + wound Results & Data Vital Signs (Past 12 Hours) Vital Signs Temp Pulse Resp BP Pulse Ox O2 Del Method 12/16/23 07:29 97.7 F 65 20 131/81 96 Room Air 12/16/23 02:10 98.2 F 61 14 130/73 94 Room Air 12/15/23 22:41 97.5 F L 60 16 116/67 94 Room Air PG Care Time/CCT Total # of Minutes Spent Total Time Spent with Patient: Total time spent is greater than 50% in coordination of care (as documented) at patient's floor/unit and/or counseling patient: Coding Level of Care Code 82068 Post Operative Follow-Up Diagnoses Scalp abscess L02.811
--- NOTE | 2023-12-16 19:36 | Hospitalist Progress Note ---
Date of Service December 16, 2023 Assessment & Plan (1) Scalp abscess: Plan: with extensive scalp cellulitis 2nd to MRSA POD #1 s/p I/D of [address] Bai appreciate his assistance intra-op culture with staph - likely to be MRSA Cont warm compresses if desired, cont tylenol prn, cont daptomycin IV - day #6 of such today (first dose was 12/11/23) Consider doxy or zyvox x 1 additional week once daptomycin has been stopped (2) Tinea capitis: Plan: Severe Seborrhea vs tinea vs other He is not on antifungal therapy at this time Consider sending scalp scrapings for fungal assessment and culture I spoke with his daughter liz - he was having scalp issues earlier this summer (3) Hypertension: Plan: Continue Losartan- HCTZ Continue meto succ Continue terazosin Controlled (4) Diabetes type 2, uncontrolled: Plan: Last HBA1C 8.9% Admitted for DKA [facility] in September 2023 During that admission he had periods of delirium, and MRI Brain (by way of d/c summary) showed old stroke Cont basal-bolus insulin Titrate both insulins as he remains uncontrolled (5) Hypothyroidism: Plan: Cont Levothyroxine 112 mcg daily TSH 1.131 (6) Chronic kidney disease, stage III (moderate): Plan: stage 3b, baseline CrCl low 30s repeat BMP today stable (7) Sleep apnea: Plan: should be on BIPAP at HS and naps (8) Cardiac pacemaker: Plan: per records had interrogation done in September 2023 this showed episodes of PAF cont metoprolol succ resume Eliquis this evening (9) Acute metabolic encephalopathy: Plan: 2nd to hypercapnia, #1, etc. BIPAP at HS for hypercapnia ammonia checked and was negative try to get MRI brain report from 09/26 done at [facility] (showed old CVA) (10) History of DVT (deep vein thrombosis): Plan: RLE per records from 09/26 at [facility] has been on Eliquis since then resume Eliquis today Plan DVT prophylaxis: Eliquis Constipation: add senna + miralax daily Dispo - [facility]; uses wheelchair/walker for mobility cont PT/OT updated his brother by phone 12/14/23 updated his daughter, Lola Cooper who resides in [place], on 12/16/23 appreciate gen surg assistance Admission and Anticipated Discharge Date Admission Date: December 11, 2023 Subjective patient resting in bed during the visit staff report he had a good night last pm - slept most of it today he has been more awake/alert appetite has been good pt denies any headache or head/scalp pain denies dyspnea denies abd pain or chest pain last stool ??? Review of Systems Review of Systems: CV - no chest pain, no orthopnea pulm - no dyspnea, no cough GI - no N/V Physical Exam Physical Exam: gen - obese, more awake/alert today head - scalp - posterior occipital region -- less erythema, less swelling, no drainage, no malodor; dressings intact neck - no JVD mouth - MMM heart - RRR, s1 s2, no murmur lungs - CTA b/l abd - soft, umbilical hernia present but reducible, BS+, NT ext - no edema, pulses 2+ b/l psych - again more awake, more alert today Results & Data Results & Data Vital Signs (Past 12 Hours) Vital Signs Temp Pulse Resp BP Pulse Ox O2 Del Method 12/16/23 15:07 36.4 C L 58 L 16 122/72 94 Room Air 12/16/23 08:15 BiPAP Laboratory Results Laboratory Results - last 24 hr 12/15/23 12/16/23 12/16/23 20:43 07:10 07:45 Sodium 137 Potassium 4.1 Chloride 104 Carbon Dioxide 27 Anion Gap 6 BUN 36 H Creatinine 2.07 H Est Cr Clr Drug Dosing 37.2 Est GFR ( Amer) 35.0 Est GFR (Non-Af Amer) 30.2 BUN/Creatinine Ratio 17.4 Glucose 222 H POC Glucose 171 H 239 H Calcium 8.9 12/16/23 12/16/23 12:15 16:14 Sodium Potassium Chloride Carbon Dioxide Anion Gap BUN Creatinine Est Cr Clr Drug Dosing Est GFR ( Amer) Est GFR (Non-Af Amer) BUN/Creatinine Ratio Glucose POC Glucose 215 H 185 H Calcium Diagnostic Findings Microbiology 12/15/23 Unknown Scalp Gram Stain - Final 12/15/23 Unknown Scalp Aerobic and Anaerobic Culture - Preliminary Staphylococcus species 12/10/23 19:36 Scalp Gram Stain - Final 12/10/23 19:36 Scalp Wound Culture - Final Staph aureus MRSA PG Care Time/CCT Total # of Minutes Spent Total Time Spent with Patient: Total time spent is greater than 50% in coordination of care (as documented) at patient's floor/unit and/or counseling patient: Coding Level of Care Code 74511 SUB INP/OBS CARE 2/35MIN Diagnoses Scalp abscess L02.811 Tinea capitis B35.0 Primary hypertension I10 Hypertension type: primary hypertension Uncontrolled type 2 diabetes mellitus with hypoglycemia without coma E11.649 Coma presence: without coma Glycemic state: with hypoglycemia Hypothyroidism, unspecified type E03.9 Hypothyroidism type: unspecified Stage 3b chronic kidney disease N18.32 Chronic kidney disease stage 3 subtype: stage 3b (GFR 30-44) Sleep apnea G47.30 Cardiac pacemaker Z95.0 Acute metabolic encephalopathy G93.41 History of DVT (deep vein thrombosis) Z86.718 (3) Hypertension Hypertension type: primary hypertension Qualified Code(s): I10 - Essential (primary) hypertension (4) Diabetes type 2, uncontrolled Coma presence: without coma Glycemic state: with hypoglycemia Qualified Code(s): E11.649 - Type 2 diabetes mellitus with hypoglycemia without coma (5) Hypothyroidism Hypothyroidism type: unspecified Qualified Code(s): E03.9 - Hypothyroidism, unspecified (6) Chronic kidney disease, stage III (moderate) Chronic kidney disease stage 3 subtype: stage 3b (GFR 30-44) Qualified Code(s): N18.32 - Chronic kidney disease, stage 3b
[2023-12-16] MEDS: LANTUS PER UNIT CHARGE SQ SCH (21:19)
[2023-12-17] MEDS: POLYETHYLENE (MIRALAX) 17 GM PACK PO SCH (07:40)
[2023-12-17] MEDS: SENNA 8.6 MG TAB PO SCH (08:11)
[2023-12-17] MEDS: ADVANCED PROBIOTIC 625 MG CAPSULE PO SCH (17:14)
--- NOTE | 2023-12-17 20:02 | Hospitalist Progress Note ---
Date of Service December 17, 2023 Assessment & Plan (1) Scalp abscess: Plan: IMPROVED / RESOLVING with extensive scalp cellulitis 2nd to MRSA POD #2 s/p I/D of [address] Bai appreciate his assistance intra-op culture with MRSA as well s/p 7 days of daptomycin IV -- stop such after today's dose then change to PO doxycycline 100mg BID x 7 days tomorrow on 12/17 (2) Tinea capitis: Plan: Severe Seborrhea vs tinea vs other He is not on antifungal therapy at this time Consider sending scalp scrapings for fungal assessment and culture Patient denies any pruritis, etc. (3) Hypertension: Plan: Continue Losartan- HCTZ Continue meto succ Continue terazosin Most BPs are reasonably controlled (4) Diabetes type 2, uncontrolled: Plan: Last HBA1C 8.9% Admitted for DKA [facility] in September 2023 During that admission he had periods of delirium, and MRI Brain (by way of d/c summary) showed old stroke Cont basal-bolus insulin Increase lantus Adjust novolog (5) Hypothyroidism: Plan: Cont Levothyroxine 112 mcg daily TSH 1.131 (6) Chronic kidney disease, stage III (moderate): Plan: stage 3b, baseline CrCl low 30s serial BMPs have been stable (7) Sleep apnea: Plan: should be on BIPAP at HS and naps but it has either been declined or could not use it due to his scalp dressings (8) Cardiac pacemaker: Plan: per records had interrogation done in September 2023 this showed episodes of PAF cont metoprolol succ cont Eliquis (9) Acute metabolic encephalopathy: Plan: 2nd to hypercapnia, MRSA infection of scalp, etc. resolved ammonia checked and was negative try to get MRI brain report from 09/26 done at [facility] (showed old CVA) (10) History of DVT (deep vein thrombosis): Plan: RLE per records from 09/26 at [facility] has been on Eliquis since then Cont Eliquis 5mg BID Plan DVT prophylaxis: Eliquis Constipation: senna + miralax daily Dispo - [facility]; uses wheelchair/walker for mobility cont PT/OT updated his brother by phone 12/14/23 updated his daughter, Lola House who resides in [place], on 12/16/23 update his other daughter tomorrow Admission and Anticipated Discharge Date Admission Date: December 11, 2023 Subjective no events overnight pt reports feeling well today denies headache or scalp pain denies dyspnea eating well ?stool overnight? Review of Systems Review of Systems: cv - no chest pain pulm - no dyspnea GI - no abd pain or N/V Physical Exam Physical Exam: gen - obese, awake/alert, watching TV, comfortable in bed head - scalp - posterior occipital region -- less erythema, less swelling, no drainage, no malodor; dressings intact neck - no JVD mouth - MMM heart - RRR, s1 s2, no murmur lungs - CTA b/l abd - soft, small umbilical hernia present but reducible, BS+, NT ext - no edema, pulses 2+ b/l Results & Data Results & Data Vital Signs (Past 12 Hours) Vital Signs Pulse Resp BP Pulse Ox O2 Del Method 12/17/23 15:56 60 16 160/92 H 96 Room Air Laboratory Results Laboratory Results - last 24 hr 12/16/23 12/17/23 12/17/23 20:42 07:30 11:31 POC Glucose 201 H 219 H 267 H 12/17/23 17:05 POC Glucose 190 H PG Care Time/CCT Total # of Minutes Spent Total Time Spent with Patient: Total time spent is greater than 50% in coordination of care (as documented) at patient's floor/unit and/or counseling patient: Coding Level of Care Code 33827 SUB INP/OBS CARE 2/35MIN Diagnoses Scalp abscess L02.811 Tinea capitis B35.0 Primary hypertension I10 Hypertension type: primary hypertension Uncontrolled type 2 diabetes mellitus with hypoglycemia without coma E11.649 Coma presence: without coma Glycemic state: with hypoglycemia Hypothyroidism, unspecified type E03.9 Hypothyroidism type: unspecified Stage 3b chronic kidney disease N18.32 Chronic kidney disease stage 3 subtype: stage 3b (GFR 30-44) Sleep apnea G47.30 Cardiac pacemaker Z95.0 Acute metabolic encephalopathy G93.41 History of DVT (deep vein thrombosis) Z86.718 (3) Hypertension Hypertension type: primary hypertension Qualified Code(s): I10 - Essential (primary) hypertension (4) Diabetes type 2, uncontrolled Coma presence: without coma Glycemic state: with hypoglycemia Qualified Code(s): E11.649 - Type 2 diabetes mellitus with hypoglycemia without coma (5) Hypothyroidism Hypothyroidism type: unspecified Qualified Code(s): E03.9 - Hypothyroidism, unspecified (6) Chronic kidney disease, stage III (moderate) Chronic kidney disease stage 3 subtype: stage 3b (GFR 30-44) Qualified Code(s): N18.32 - Chronic kidney disease, stage 3b
[2023-12-17] MEDS: LANTUS PER UNIT CHARGE SQ SCH (21:02)
[2023-12-18 06:35] LABS: Calcium 9.5 mg/dl (8.6-10.3); Creatinine Clr Calc Pharmacy 34.2 ml/min; Est GFR (African American) 31.6 ml/min; Est GFR (Non-African American) 27.3 ml/min; Potassium 3.9 mmol/L (3.5-5.1)
[2023-12-18] MEDS: DOXYCYCLINE HYCLATE 100 MG CAP PO SCH (08:18)
--- NOTE | 2023-12-18 19:40 | Hospitalist Progress Note ---
Date of Service December 18, 2023 Assessment & Plan (1) Scalp abscess: Plan: IMPROVED / RESOLVING abscess had extensive scalp cellulitis with it 2nd to MRSA POD #3 s/p I/D of [address] Bai appreciate his assistance intra-op culture with MRSA as well s/p 7 days of daptomycin IV now over to PO doxycycline 100mg BID x 7 days, first day today (2) Tinea capitis: Plan: I spoke with the pt's daughter Carolyne by phone. She reports that after his admission at [facility] earlier this summer he had what looked like scabs on his posterior occiput. There were 2 spots. He has never had seborrhea. He had discomfort from these spots, no itching. Doubt seborrhea or tinea capitis at baseline. Sounds like he had pressure sores earlier this summer ? (3) Hypertension: Plan: Continue Losartan- HCTZ Continue meto succ Continue terazosin Many of his BPs remain high despite the above - thus add amlodipine 2.5mg daily (4) Diabetes type 2, uncontrolled: Plan: Last HBA1C 8.9% Admitted for DKA [facility] in September 2023 During that admission he had periods of delirium, and MRI Brain (by way of d/c summary) showed old stroke Cont basal-bolus insulin BSGs have improved with adjustments to both insulins (5) Hypothyroidism: Plan: Cont Levothyroxine 112 mcg daily TSH 1.131 (6) Chronic kidney disease, stage III (moderate): Plan: stage 3b, baseline CrCl low 30s serial BMPs have been stable (7) Sleep apnea: Plan: should be on BIPAP at HS and naps but it has either been declined or could not use it due to his scalp dressings (8) Cardiac pacemaker: Plan: per records had interrogation done in September 2023 this showed episodes of PAF cont metoprolol succ cont Eliquis (9) Acute metabolic encephalopathy: Plan: 2nd to hypercapnia, MRSA infection of scalp, etc. resolved ammonia checked and was negative try to get MRI brain report from 09/26 done at [facility] (showed old CVA) (10) History of DVT (deep vein thrombosis): Plan: RLE per records from 09/26 at [facility] has been on Eliquis since then Cont Eliquis 5mg BID Plan DVT prophylaxis: Eliquis Constipation: senna + miralax daily Dispo - [facility]; uses wheelchair/walker for mobility -- hopefully back to [facility] on 12/20/23 cont PT/OT updated his brother by phone 12/14/23 updated his daughter, Lola Cooper who resides in [place], on 12/16/23 update his daughter Carolyne this evening by phone ([phone]) Admission and Anticipated Discharge Date Admission Date: December 11, 2023 Subjective no events had stool earlier today was resting in bed and watching TV no complaints feels good no scalp pain or tenderness Review of Systems Review of Systems: cv - no chest pain pulm - no dyspnea GI - no abd pain, no N/V Physical Exam Physical Exam: gen - obese, awake/alert, NAD head - scalp - posterior occipital region -- dressings intact - NOT removed today neck - no JVD mouth - MMM heart - RRR, s1 s2, no murmur lungs - CTA b/l abd - soft, small umbilical hernia present but reducible, BS+, NT ext - no edema, pulses 2+ b/l Results & Data Results & Data Vital Signs (Past 12 Hours) Vital Signs Temp Pulse Resp BP Pulse Ox O2 Del Method 12/18/23 19:17 36.2 C L 60 14 177/94 H 97 Room Air 12/18/23 15:39 36.2 C L 60 16 168/89 H 94 Room Air Laboratory Results Laboratory Results - last 24 hr 12/17/23 12/18/23 12/18/23 20:17 05:49 07:32 Sodium 139 Potassium 3.9 Chloride 104 Carbon Dioxide 29 Anion Gap 6 BUN 36 H Creatinine 2.25 H Est Cr Clr Drug Dosing 34.2 Est GFR ( Amer) 31.6 Est GFR (Non-Af Amer) 27.3 BUN/Creatinine Ratio 16.0 Glucose 164 H POC Glucose 174 H 160 H Calcium 9.5 12/18/23 12/18/23 11:34 16:29 Sodium Potassium Chloride Carbon Dioxide Anion Gap BUN Creatinine Est Cr Clr Drug Dosing Est GFR ( Amer) Est GFR (Non-Af Amer) BUN/Creatinine Ratio Glucose POC Glucose 255 H 150 H Calcium Diagnostic Findings intraop wound cx - MRSA, sens to tetracyclines PG Care Time/CCT Total # of Minutes Spent Total Time Spent with Patient: Total time spent is greater than 50% in coordination of care (as documented) at patient's floor/unit and/or counseling patient: Coding Level of Care Code 12688 SUB INP/OBS CARE 2/35MIN Diagnoses Scalp abscess L02.811 Tinea capitis B35.0 Primary hypertension I10 Hypertension type: primary hypertension Uncontrolled type 2 diabetes mellitus with hypoglycemia without coma E11.649 Coma presence: without coma Glycemic state: with hypoglycemia Hypothyroidism, unspecified type E03.9 Hypothyroidism type: unspecified Stage 3b chronic kidney disease N18.32 Chronic kidney disease stage 3 subtype: stage 3b (GFR 30-44) Sleep apnea G47.30 Cardiac pacemaker Z95.0 Acute metabolic encephalopathy G93.41 History of DVT (deep vein thrombosis) Z86.718 (3) Hypertension Hypertension type: primary hypertension Qualified Code(s): I10 - Essential (primary) hypertension (4) Diabetes type 2, uncontrolled Coma presence: without coma Glycemic state: with hypoglycemia Qualified Code(s): E11.649 - Type 2 diabetes mellitus with hypoglycemia without coma (5) Hypothyroidism Hypothyroidism type: unspecified Qualified Code(s): E03.9 - Hypothyroidism, unspecified (6) Chronic kidney disease, stage III (moderate) Chronic kidney disease stage 3 subtype: stage 3b (GFR 30-44) Qualified Code(s): N18.32 - Chronic kidney disease, stage 3b
[2023-12-19] MEDS: ATORVASTATIN 40 MG TAB PO SCH (10:47)
[2023-12-19] MEDS: amLODIPine BESYLATE 5 MG TAB PO SCH (10:48)
[2023-12-19 20:20] VITALS: TEMP 97.3
--- NOTE | 2023-12-20 03:46 | Hospitalist Progress Note ---
Date of Service December 19, 2023 Assessment & Plan (1) Scalp abscess: Plan: resolved abscess had extensive scalp cellulitis with it 2nd to MRSA POD #4 s/p I/D of [address] Bai appreciate his assistance intra-op culture with MRSA as well s/p 7 days of daptomycin IV now over to PO doxycycline 100mg BID x 7 days, day #2 (2) Tinea capitis: Plan: I spoke with the pt's daughter Carolyne by phone. She reports that after his admission at [facility] earlier this summer he had what looked like scabs on his posterior occiput. There were 2 spots. He has never had seborrhea. He had discomfort from these spots, no itching. Doubt seborrhea or tinea capitis at baseline. and, I don't see such on exam. suspect he had pressure ulcers/sores on scalp from either his fall in September 2023 or from his hospital stay in September. either way NO tinea and NO seborrhea present. (3) Hypertension: Plan: Continue Losartan- HCTZ Continue meto succ Continue terazosin BPs improved with addition of amlodipine 2.5mg daily (4) Diabetes type 2, uncontrolled: Plan: Last HBA1C 8.9% Admitted for DKA [facility] in September 2023 During that admission he had periods of delirium, and MRI Brain (by way of d/c summary) showed old stroke Cont basal-bolus insulin BSGs have improved with adjustments to both insulins (5) Hypothyroidism: Plan: Cont Levothyroxine 112 mcg daily TSH 1.131 (6) Chronic kidney disease, stage III (moderate): Plan: stage 3b, baseline CrCl low 30s serial BMPs have been stable including yesterday's Cr of 2.2 repeat BMP am tomorrow for stability (7) Sleep apnea: Plan: should be on BIPAP at HS and naps but it has either been declined or could not use it due to his scalp dressings (8) Cardiac pacemaker: Plan: per records had interrogation done in September 2023 this showed episodes of PAF cont metoprolol succ cont Eliquis (9) Acute metabolic encephalopathy: Plan: 2nd to hypercapnia, MRSA infection of scalp, etc. resolved ammonia checked and was negative try to get MRI brain report from 09/26 done at [facility] (showed old CVA) (10) History of DVT (deep vein thrombosis): Plan: RLE per records from 09/26 at [facility] has been on Eliquis since then Cont Eliquis 5mg BID Plan DVT prophylaxis: Eliquis Constipation: senna + miralax daily Dispo - [facility]; uses wheelchair/walker for mobility -- hopefully back to [facility] on 12/20/23 cont PT/OT updated his brother by phone 12/14/23 updated his daughter, Lola Cooper who resides in [place], on 12/16/23 update his daughter Carolyne this evening by phone ([phone]) Admission and Anticipated Discharge Date Admission Date: December 11, 2023 Subjective no events eating well sleeping well no scalp pain no dyspnea "I'm ready go" [back to [facility]] denies any new complaints Review of Systems Review of Systems: CV - no chest pain pulm - no dyspnea GI - no abd pain or N/V Physical Exam Physical Exam: gen - obese, awake/alert, NAD, sitting in chair head - scalp - posterior occipital region -- optifoam dressing present; 2 former abscess sites are open, minimal drainage; minimal swelling of this region of the scalp; no erythema; no tinea; no seborrhea; there is loss of hair in this region of the scalp neck - no JVD mouth - MMM heart - RRR, s1 s2, no murmur lungs - CTA b/l abd - soft, small umbilical hernia present but reducible, BS+, NT ext - no edema, pulses 2+ b/l Results & Data Results & Data Vital Signs (Past 12 Hours) Vital Signs Temp Pulse Resp BP Pulse Ox O2 Del Method 12/19/23 14:43 36.7 C 60 16 108/65 97 Room Air 12/19/23 07:35 36.5 C 69 16 172/81 H 95 Room Air PG Care Time/CCT Total # of Minutes Spent Total Time Spent with Patient: Total time spent is greater than 50% in coordination of care (as documented) at patient's floor/unit and/or counseling patient: Coding Level of Care Code 52995 SUB INP/OBS CARE 2/35MIN Diagnoses Scalp abscess L02.811 Tinea capitis B35.0 Primary hypertension I10 Hypertension type: primary hypertension Uncontrolled type 2 diabetes mellitus with hypoglycemia without coma E11.649 Glycemic state: with hypoglycemia Coma presence: without coma Hypothyroidism, unspecified type E03.9 Hypothyroidism type: unspecified Stage 3b chronic kidney disease N18.32 Chronic kidney disease stage 3 subtype: stage 3b (GFR 30-44) Sleep apnea G47.30 Cardiac pacemaker Z95.0 Acute metabolic encephalopathy G93.41 History of DVT (deep vein thrombosis) Z86.718 (3) Hypertension Hypertension type: primary hypertension Qualified Code(s): I10 - Essential (primary) hypertension (4) Diabetes type 2, uncontrolled Glycemic state: with hypoglycemia Coma presence: without coma Qualified Code(s): E11.649 - Type 2 diabetes mellitus with hypoglycemia without coma (5) Hypothyroidism Hypothyroidism type: unspecified Qualified Code(s): E03.9 - Hypothyroidism, unspecified (6) Chronic kidney disease, stage III (moderate) Chronic kidney disease stage 3 subtype: stage 3b (GFR 30-44) Qualified Code(s): N18.32 - Chronic kidney disease, stage 3b
[2023-12-20 07:26] LABS: BUN Creatinine Ratio 16.1 (10-20); Calcium 9.8 mg/dl (8.6-10.3); Creatinine Clr Calc Pharmacy 31.8 ml/min
[2023-12-20 07:34] VITALS: BP 159/79; RESP 18; O2SAT 94
[2023-12-20] MEDS: LANTUS PER UNIT CHARGE SQ SCH (08:30)
[2023-12-20 12:40] VITALS: PULSE 62
--- NOTE | 2023-12-20 14:15 | Discharge Summary ---
Discharge Summary Date of Service date of admission - December 11, 2023 date of discharge - December 20, 2023 Principal Dx & Hospital Course #1 = Principal Diagnosis (1) Scalp abscess: Patient presented with a worsening wound and infection of the posterior scalp. He became altered and was having increased fatigue/weakness as well as decreased appetite. Wound cx from the scalp on 12/10/23 grew MRSA. He received IV daptomycin starting on hospital day #1. The occipital region of the scalp had extensive cellulitis with abscess. Although he had spontaneous drainage of the abscesses the area remained very swollen, inflamed, tender, etc. To that end [facility] General Surgery was consulted and on 12/15/23 Mr Gambino was taken to the OR for I & D of the posterior scalp. 2 abscesses were drained by Dr Sarbjit Bai. Intra-op cultures also grew MRSA. Following multiple days of IV daptomycin along with I & D of the abscesses he continued to show nice, steady improvement. Mentation improved, appetite improved, and his scalp felt better. After ~7 days of daptomycin IV he was then transitioned to PO doxycycline 100mg BID x 7 days. The patient was seen by the wound care team and the following were recommended - * Cover/fill posterior scalp wounds with Aquacel Ag, then cover with Optifoam. Change daily and as needed. * f/u with Dr Bai, [facility] [place] General Surgery, in 1-2 weeks post-discharge (2) Tinea capitis: I spoke with the pt's daughters by phone. They reported that after his admission at [facility] in September 2023 he had what looked like scabs on his posterior occiput. There were 2 spots. He has never had seborrhea to her knowledge. He had discomfort from these spots but no itching. Doubt the patient ever had seborrhea or tinea capitis at baseline. Furthermore, I did not see evidence of these skin problems during his hospitalization. Suspect he had pressure ulcers/sores on his scalp from either his fall in September 2023 or from his hospital stay in September. (3) Hypertension: Continue Losartan/HCTZ daily Continue meto succinate BID Continue terazosin daily BPs improved with addition of amlodipine daily (4) Diabetes type 2, uncontrolled: HbA1C 8.7% Admitted for DKA to [facility] in September 2023 During that admission he had periods of delirium, and MRI Brain (by way of d/c summary) showed old stroke Cont basal-bolus insulin (Tresiba, lispro) BSGs were decently controlled by time of hospital discharge (5) Hypothyroidism: Cont Levothyroxine 112 mcg daily TSH 1.131 (6) Chronic kidney disease, stage III (moderate): stage 3b, baseline CrCl low 30s serial BMPs were stable while here discharge Cr was 2.4 (near his baseline which is low 2's) (7) Sleep apnea: should be on BIPAP at HS and with naps but it has either been declined by the patient OR he could not use it due to his scalp dressings (8) Cardiac pacemaker: per records had interrogation done in September 2023 this showed episodes of PAF patient remains on metoprolol succinate 50mg BID cont Eliquis 5mg BID (9) Acute metabolic encephalopathy: 2nd to hypercapnia, MRSA infection of scalp, etc. resolved ammonia was checked and was negative pt's mental status returned to baseline prior to d/c back to [facility] (10) History of DVT (deep vein thrombosis): RLE - 09/2023 - hospitalized at [facility] has been on Eliquis since then Cont Eliquis 5mg BID Plan Constipation: senna + miralax daily Disposition - [facility]; uses wheelchair/walker for mobility Admission HPI Per Admitting Provider Mr. Gambino is a 78-year-old male with PMH of Type II DM, CHF, CAD, S/P cardiac pacemaker, HTN, morbid Obesity, GERD, Dyslipidemia, CKD3, Static dermatitis presented to ED from skilled facility due to concern for worsening wound and possible infection to the scalp, not behaving like himself as well as increased fatigue/weakness and decreased appetite as noted by facility staff. He was seen here 2 days ago and treated for ringworm with ketoconazole and fluconazole. Family states over the next several days this area appeared worse, began to drain, and was increasingly red. They also noted he had decreased appetite. No trauma or injuries. Patient is a diabetic He was admitted in ICU for DKA and intubated for passing out 2 month back. Was admitted in hospital for a month and intubation period was 2 days. On chart review he seems to have seen PCP for otitis media, but does not complain of ear pain or decreased hearing now. No h/o fever, trauma, fall, seizure, ear discharge, limb paralysis, swallowing problem, chest pain ,SOB. PMH: Reviewed Medication history: Reviewed Drug and Allergy: Oxycodone Discharge Exam gen - obese, awake/alert, NAD, sitting in chair head - scalp - posterior occipital region -- optifoam dressing present; 2 former abscess sites are open, minimal drainage; minimal swelling of this region of the scalp; no erythema; no tinea; no seborrhea; there is loss of hair in the posterior scalp neck - no JVD mouth - MMM heart - RRR, s1 s2, no murmur lungs - CTA b/l abd - soft, small umbilical hernia present but reducible, BS+, NT ext - no edema, pulses 2+ b/l neuro - no focal deficits Discharge Plan Discharge Items Patient Disposition: Personal Long Term Reason For Visit: INFECTED SCALP Discharge Diagnosis: 1. Skin infection/abscess of scalp due to staph infection ("MRSA") 2. Incision & drainage of abscess x 2 - Dr Sarbjit Bai, 12/15/23 3. Type 2 diabetes 4. Prior history of stroke 5. Chronic kidney disease stage 3b 6. History of DVT 7. Pacemaker 8. Acute confusion/delirium due to #1 - resolved 9. High blood pressure Activity: Resume your previous activity Bathing Comment: Keep dressings on scalp clean/dry during showers Non-emergency contact: Primary Care Provider and Surgeon Call non-emergency contact if: you have any medication questions, your symptoms worsen, you have a fever, your wound has increased redness, your wound has increased drainage and your wound pain has increased Follow-up/Referrals: Sarbjit Bai DO [Physician] - (1-2 weeks) Alek Vera DO [Primary Care Provider] - 12/27/23 11:30 am (5 days ) Diet: Carb Consistent or DM2 Addtl Attending Provider Instructions: 1. Wound care instructions -- Cover/fill posterior scalp wounds with Aquacel Ag, then cover with optifoam. Change daily and as needed. 2. Check fingerstick blood sugars four times daily (before meals & at bedtime). 3. CBC, BMP, and magnesium level in 5 days for stability. 4. See Dr Bai - [facility] Surgery - in 1-2 weeks to recheck scalp. Pending Studies at Discharge: No Stand-Alone Forms: My [employer], Smoking Cessation Skilled Items Patient informed of condition?: Yes DNR: No Discharge Level of Care: Other Communicable Disease: Yes (MRSA skin infection ) Discharge Prognosis: Stable Lines: None Urinary Catheter: No Medications and DC Order Prescriptions: New amlodipine [Norvasc] 5 mg Tablet 5 mg PO QAM Qty: 30 2RF sennosides [Senokot] 8.6 mg Tablet 17.2 mg PO QAM Qty: 60 2RF Continued (DME) FreeStyle Maisha 2 Sensor Kit See Rx Instructions .Route Qty: 2 11RF Rx Instructions: Change every 14 days furosemide 20 mg tablet 20 mg PO DAILY Qty: 90 3RF gabapentin 300 mg capsule 300 mg PO DAILY Qty: 30 2RF sertraline 50 mg tablet 75 mg PO DAILY Qty: 135 0RF pantoprazole 40 mg tablet,delayed release (DR/EC) 40 mg PO DAILY polyethylene glycol 3350 [Miralax] 17 gram/dose powder 17 g PO DAILY nitroglycerin 0.4 mg tablet, sublingual 0.4 mg sublingual Q5M PRN (Reason: Chest Pain) Rx Instructions: do not exceed 3 doses per episode ondansetron 4 mg tablet,disintegrating 4 mg PO Q8H PRN (Reason: Nausea And Vomiting) calcitriol 0.5 mcg capsule 0.5 mcg PO DAILY Qty: 180 3RF clotrimazole [Lotrimin AF (clotrimazole)] 1 % cream 1 applic TOP BID PRN (Reason: Skin Irritation) Rx Instructions: Apply to 1 inch above affected areas of the feet for 1 month, then continue to apply around nails daily. (DME) sharps bin-insulin syrin-needl 1 mL 30 gauge x 5/16" syringe See Dose Instructions .ROUTE .MEDSUPPLY Qty: 1 Rx Instructions: As directed acetaminophen [Tylenol] 325 mg capsule 650 mg PO TID PRN (Reason: Pain) (DME) lancets [OneTouch Delica Plus Lancet] 30 gauge misc See Rx Instructions .ROUTE .MEDSUPPLY Rx Instructions: Test blood sugar once daily PRN (DME) FreeStyle Maisha 2 [place] Misc See Rx Instructions .Route Rx Instructions: As directed terazosin 10 mg capsule 10 mg PO DAILY Qty: 90 1RF Rx Instructions: TAKE 1 CAPSULE DAILY atorvastatin 80 mg tablet 80 mg PO DAILY Qty: 90 3RF Eliquis 5 mg tablet 5 mg PO BID Qty: 180 1RF Rx Instructions: 5 mg po BID (DME) pen needle, diabetic [BD Ultra-Fine Micro Pen Needle] 32 gauge x 1/4" needle See Rx Instructions .Route Qty: 100 3RF Rx Instructions: use twice daily aspirin 81 mg Tablet,Delayed Release (Dr/Ec) 81 mg PO QAM Jardiance 25 mg tablet 25 mg PO DAILY Mounjaro 5 mg/0.5 mL pen injector 5 mg SUBCUT WK insulin lispro [Admelog SoloStar U-100 Insulin] 100 unit/mL insulin pen 1 sliding scale dose subcut USEASDIRECTD Qty: 0 0RF Rx Instructions: SS before meals and at Bedtime: 151-200=4 units; 201-250=6 units; 251- 300=10 units; 301-350 = 12 units; 351-400= 15 units; 401 or greater give 15 units and call physician. Changed metoprolol succinate 50 mg tablet extended release 24 hr 50 mg PO BID Qty: 60 2RF potassium chloride 10 mEq tablet extended release 10 meq PO DAILY Qty: 30 2RF losartan 100 mg tablet 50 mg PO DAILY Qty: 30 0RF levothyroxine 112 mcg capsule 112 mcg PO DAILY Qty: 30 2RF insulin degludec [Tresiba FlexTouch U-100] 100 unit/mL (3 mL) insulin pen 42 unit subcut DAILY Qty: 0 0RF magnesium oxide 400 mg magnesium tablet 400 mg PO DAILY Qty: 30 2RF Discontinued mupirocin 2 % ointment 1 applic topical BID Qty: 22 1RF ketoconazole 2 % shampoo 1 applic topical TID 14 Days Qty: 120 1RF Discharge Orders: Discharge Order (Routine); Ordered 12/20/23 Ordered By: Mark Fulton/Other Patient Handouts: Nutrition for Wound Healing, Managing Type 2 Diabetes Admission Data Admit Date/Time: 12/11/23 00:17 Attending Provider: Mark Vazquez Admit Provider: Rosy Feldman Primary Care Provider: Aelk Vera Other Providers: Malena Martell; Sarbjit Bai Other Interventions: Discharge Summary Assessment (RN) Last Done: 12/20/23 12:38 Hospital Stay Data Consultations General Surgery PT, OT Procedures Performed Operation Date: 12/15/23 08:25 Actual Procedures Incision and Drainage of Scalp Abscess x 2 - Sarbjit Bai DO Diagnostic Imagining Performed Chest X-Ray 12/10/23 18:29 XR chest 1V not portable HISTORY: 78 years-old Male low sat acute hypoxia COMPARISON: Chest CT 05/28/2021 TECHNIQUE: AP view of the chest FINDINGS: Cardiac silhouette is enlarged. Right subclavian dual lead pacer. Lungs are clear. No pneumothorax or pleural effusion. Subcentimeter pulmonary nodules seen by chest CT are not visualized by radiography. Calcified subcentimeter granuloma the left lung apex redemonstrated. IMPRESSION: Cardiomegaly without acute process. ACT 112: Negative or not required by law. The above report was generated using voice recognition software. It may contain grammatical, syntax or spelling errors. Electronically signed by: Rakan Francis M.D. 12/11/2023 7:[address] 12/10/23 19:40 Exam(s): CT HEAD Without Contrast EXAM: CT Head Without Intravenous Contrast CLINICAL HISTORY: Reason for exam: left scalp infection. TECHNIQUE: Axial computed tomography images of the head/brain without intravenous contrast. CTDI is 35.65 mGy and DLP is 546.36 mGy-cm. Automated exposure control was utilized for the study. A dose lowering technique was utilized adhering to the principles of ALARA. COMPARISON: No comparisons made to prior head CT from May 28, 2021. FINDINGS: Brain: Remote ischemic injury of the right frontal lobe with encephalomalacia and gliosis. Remote ischemic injury of the left capsule. Advanced nonspecific white matter changes.. No edema. Ventricles: Unremarkable. No ventriculomegaly. Bones/joints: Unremarkable. No acute fracture. Soft tissues: There is extensive soft tissue swelling about the left posterior occipital right with small fluid collection. Sinuses: Unremarkable as visualized. No acute sinusitis. Mastoid air cells: Unremarkable as visualized. No mastoid effusion. IMPRESSION: Extensive soft tissue swelling about the left posterior occiput a small fluid collection concerning for infection and small abscess formation. Electronically signed by: Judy Nicholson MD 12/10/23 22:10 PM Head/Neck Ultrasound 12/14/23 15:46 . US soft tissue head and neck CLINICAL HISTORY: posterior occipital scalp skin abscess COMPARISON STUDY: Head CT 12/10/2023. FINDINGS: Real-time sonographic imaging of the left posterior scalp was performed with account service representative images submitted. There is skin thickening and subcutaneous edema again noted throughout the left posterior scalp consistent with a cellulitis. No loculated fluid collections identified to confirm an abscess. IMPRESSION: Skin thickening and subcutaneous edema noted throughout the left posterior scalp suggestive of a cellulitis. No loculated fluid collections at this time to suggest an abscess. ACT 112: Negative or not required by law. Electronically signed by: Damon Davies M.D. 12/14/2023 7:30 PM Pending Results Patient Have Any Pending Studies at Discharge: No Discharge Instructions Given to Patient (Per Discharging Provider) 1. Wound care instructions -- Cover/fill posterior scalp wounds with Aquacel Ag, then cover with optifoam. Change daily and as needed. 2. Check fingerstick blood sugars four times daily (before meals & at bedtime). 3. CBC, BMP, and magnesium level in 5 days for stability. 4. See Dr Bai - [facility] Surgery - in 1-2 weeks to recheck scalp. Total Time Total Time Spent Total Time Spent (In Minutes): 50 Coding Level of Care Code 83795 INP/OBS DISCH >30 MIN Diagnoses Scalp abscess L02.811 Tinea capitis B35.0 Primary hypertension I10 Hypertension type: primary hypertension Uncontrolled type 2 diabetes mellitus with hypoglycemia without coma E11.649 Coma presence: without coma Glycemic state: with hypoglycemia Hypothyroidism, unspecified type E03.9 Hypothyroidism type: unspecified Stage 3b chronic kidney disease N18.32 Chronic kidney disease stage 3 subtype: stage 3b (GFR 30-44) Sleep apnea G47.30 Cardiac pacemaker Z95.0 Acute metabolic encephalopathy G93.41 History of DVT (deep vein thrombosis) Z86.718
== END 2023-12-20 14:51 | disposition home or self-care (01) | DRG 602 ==
LOC: ED 17:46 → SUATTDRO 12-11 00:17 → 3E 12-11 00:17

== ENCOUNTER 2024-05-09 08:47 | Observation (INO) ==
--- NOTE | 2024-05-09 09:06 | Emergency Department Note ---
Impression & Plan Jaundice, Abnormal LFTs ED Provider Note ED Provider Note NAME: FIDELIA SERRANO AGE:79 SEX: Male : 1945 ARRIVES VIA: EMS INFORMANT: Patient ED PROVIDER(s): Alycia Almendarez DO CHIEF COMPLAINT: jaundice HPI: This is a 79-year-old male who presents for movement house via EMS due to concern by staff for jaundice. Patient states he does not notice any yellow discoloration to his skin or eyes. He denies any history of liver problems. He states he has not had any recent abdominal pain, nausea or vomiting, change in urine, change in stools, fevers or chills. He denies any recent change in medications. PAST MEDICAL HISTORY:See Below PAST SURGICAL HISTORY:See Below FAMILY HISTORY:See Below SOCIAL HISTORY:See Below HOME MEDICATIONS:See Below ALLERGIES:See Below VITALS:See Below PHYSICAL EXAMINATION: GENERAL: alert, well appearing, well nourished, no distress, non-toxic EYE EXAM: normal conjunctiva, PERRL and EOM's grossly intact, scleral icterus present OROPHARYNX: no exudate, no erythema, lips, buccal mucosa, and tongue normal and mucous membranes are moist NECK: supple, no nuchal rigidity, no adenopathy, non-tender LUNGS: Clear to auscultation. Normal chest wall mechanics, no w/r/r HEART: no murmurs, S1 normal and S2 normal ABDOMEN: abdomen soft, non-tender, normo-active bowel sounds, no masses, no rebound or guarding. SKIN: no rashes, petechiae, orbruising UPPER EXTREMITIES: upper extremities are grossly normal. FROM, nml pulses b/l. LOWER EXTREMITIES: No pitting edema. FROM, nml pulses b/l. NEURO EXAM: Normal sensorium, cranial nerves II-XII grossly intact, normal speech, no facial droop,nogross weakness of arms, no gross weakness of legs. Gross sensation intact. No ataxia. Vital Signs: reviewed and remarkable Differential Diagnosis: Pancreatitis, choledocholithiasis, hepatitis, mass, metastatic disease, lab error, medication adr, as well as others were considered MEDICAL DECISION MAKING: This is a 79-year-old male presents emergency department due to concern by staff at [facility] regarding jaundice. Patient denies any concerns or complaints. Patient was afebrile and hemodynamically stable. Labs drawn and sent, IV established, EKG performed at bedside and interpreted by me and patient monitored on telemetry. Patient was noted to have scleral icterus on exam, no overt jaundice. Patient's LFTs were abnormal. Patient sent for CT of the abdomen and pelvis due to advanced age and consideration for the differential diagnosis. He was given gentle IV fluid hydration. CT reassuring. Case discussed with GI via [place] text who recommended admission and further ultrasound imaging. Case ultimately discussed with the hospitalist team for additional evaluation. Patient had no other new or evolving symptoms while present in the emergency room. Consultation(s): 1220: DODIE Hatfield, did contact [facility] to discuss their concerns. 1210: Discussed with Dr. Zuleta, GI, via [place] text. Recommended admission and ultrasound. 1435: Discussed with Dr. Carias, [facility] hospitalist team, for additional evaluation and management. ER Treatment Provided: See below Diagnostics Interpreted By Me: -ECG: Paced at 67, leftward axis, prolonged intervals consistent with pacer, nonspecific ST/T wave changes -Cardiac Monitoring: An order was placed for continuous cardiac monitoring. The monitor shows a rate of 60 with normal sinus rhythm. -Laboratory studies: As stated above and show below. -Imaging studies: CT A/P: no obvious mass, no pancreatic inflammation Triage Nursing Note Reviewed Prior/Outside Records Reviewed Past Med/Surg History Problem List (Updated 05/09/24 @ 12:13 by Alycia Almendarez DO) Abnormal LFTs (Acute) Jaundice (Acute) History of DVT (deep vein thrombosis) Acute metabolic encephalopathy Scalp abscess (Acute) Cellulitis of scalp (Acute) Right otitis media Finger pain, left Encounter for screening colonoscopy Toe injury Traumatic loss of toenail of right great toe Vitamin D deficiency Bilateral pulmonary embolism Lumbar back pain with radiculopathy affecting left lower extremity Albuminuria Hypertension Diabetes type 2, uncontrolled Pulmonary nodule Sleep apnea (Chronic) Secondary hyperparathyroidism (Chronic) Morbid obesity (Chronic) Lumbar spinal stenosis (Chronic) Hypothyroidism (Chronic) Dyslipidemia (Chronic) Dysesthesia (Chronic) Diabetic peripheral 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) Depression (Chronic) Chronic reflux esophagitis (Chronic) Cardiac pacemaker (Chronic) CHF (congestive heart failure) (Chronic) Arteriosclerotic cardiovascular disease (Chronic) Anemia (Chronic) Background diabetic retinopathy associated with type 2 diabetes mellitus Hypomagnesemia Chronic anemia (Acute) Medical History Chronic kidney disease, stage III (moderate) Acute respiratory failure JUANPABLO (acute kidney injury) Colon polyps Elevated transaminase level Hematuria Tinea pedis of both feet Vitamin D deficiency Surgical History History of incision and drainage (12/15/23) History of colonoscopy History of tonsillectomy History of mandibular surgery History of cholecystectomy History of coronary artery stent placement History of cardiac cath History of cataract surgery Family History Father Lung cancer Brother Lung disease Lung cancer Denies family history of Ovarian cancer Prostate cancer Myocardial infarction Breast cancer Colorectal cancer Social History Smoking Status: Never smoker Age Started Using Tobacco: 20; Age Quit Using Tobacco: 21; Second Hand Exposure: Yes; Hx Alcohol Use: Yes Alcohol type: beer Alcohol Intake Frequency: Monthly or Less Alcohol Intake Frequency Comment: Socially Hx Substance Use: No Preferred Language: [place] Communication Ability: Effective Visual Impairment: No Limitations Hearing Ability: Use of Hearing Aid Metalsmith Helper Required: No Beliefs That Will Affect Care: None marital status: / Current Living Situation: Personal Care Facility current occupational status: retired 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 How many Children do You have: 2 Feels Safe at Home: Yes Childhood Exposure to Second-Hand Smoke: No Diet: regular Diet Comment: Regular Diet caffeine: No during the past year weight has: remained stable Dental Care, Regularly: No Physical Activity Frequency: Does not Exercise Seatbelt Use: sometimes Sunscreen Use: No Assistive Devices: Wheelchair Allergies Allergies Allergy/AdvReac Type Severity Reaction Status Date / Time cefaclor AdvReac Intermediate RASH Verified 01/12/24 10:01 oxycodone AdvReac Intermediate "I GET ALL Verified 01/12/24 10:01 GOOFY" Home Meds Home Medications Medication Instructions Recorded Confirmed sharps container-insulin syringe ##1 10/05/18 01/12/24 and needle 1 mL 30 gauge x 5/16" acetaminophen 325 mg capsule 650 mg PO UD PRN Pain 02/13/20 05/09/24 (Tylenol) clotrimazole 1 % topical cream 1 applic topical UD PRN Skin 03/17/21 05/09/24 (Lotrimin AF (clotrimazole)) Irritation aspirin 81 mg tablet,delayed 81 mg PO QAM 05/28/21 05/09/24 release flash glucose scanning reader 07/04/21 01/12/24 (FreeStyle Maisha 2 [place]) lancets 30 gauge (OneTouch Delica 07/04/21 01/12/24 Plus Lancet) nitroglycerin 0.4 mg sublingual 0.4 mg sublingual Q5M PRN Chest 11/11/23 05/09/24 tablet Pain ondansetron 4 mg disintegrating 4 mg PO Q8H PRN Nausea And Vomiting 11/11/23 05/09/24 tablet pantoprazole 40 mg tablet,delayed 40 mg PO QAM 11/11/23 05/09/24 release polyethylene glycol 3350 17 17 g PO QAM 11/11/23 05/09/24 gram/dose oral powder (Miralax) empagliflozin 25 mg tablet 25 mg PO QAM 12/11/23 05/09/24 (Jardiance) tirzepatide 5 mg/0.5 mL 5 mg subcut WK 12/11/23 05/09/24 subcutaneous pen injector (Keyla) atorvastatin 80 mg tablet 80 mg PO HS 05/09/24 05/09/24 calcitriol 0.5 mcg capsule 0.5 mcg PO QAM 05/09/24 05/09/24 carbamide peroxide 6.5 % ear drops 5 - 10 drp otic (ear) BID 05/09/24 05/09/24 (Ear Wax Removal Drops) furosemide 20 mg tablet 10 mg PO QAM 05/09/24 05/09/24 gabapentin 300 mg capsule 300 mg PO HS 05/09/24 05/09/24 insulin degludec 100 unit/mL (3 40 unit subcut QAM 05/09/24 05/09/24 mL) subcutaneous pen (Tresiba FlexTouch U-100 insulin) levothyroxine 112 mcg capsule 112 mcg PO QAM 05/09/24 05/09/24 losartan 100 mg tablet 50 mg PO QAM 05/09/24 05/09/24 magnesium oxide 400 mg PO QAM 05/09/24 05/09/24 [id number] 2 drp otic (ear) TID 05/09/24 05/09/24 potassium chloride 10 mEq 10 meq PO QAM 05/09/24 05/09/24 tablet,extended release sertraline 50 mg tablet 75 mg PO QAM 05/09/24 05/09/24 terazosin 10 mg capsule 10 mg PO QAM 05/09/24 05/09/24 Previous Rx's Medication Instructions Recorded flash glucose sensor (FreeStyle #2 ea 07/09/21 Maisha 2 Sensor kit) pen needle, diabetic 32 gauge x #100 ea 05/27/22 1/" (BD Ultra-Fine Micro Pen Needle) apixaban 5 mg tablet (Eliquis) 5 mg PO BID #180 tabs 04/28/23 amlodipine 5 mg tablet (Norvasc) 5 mg PO QAM #30 tabs 12/20/23 insulin lispro 100 unit/mL 1 sliding scale dose subcut 12/20/23 subcutaneous pen ([facility] SolLeonel USEASDIRECTD #0 mL U-) metoprolol succinate 50 mg 50 mg PO BID #60 tabs 12/20/23 tablet,extended release 24 hr sennosides 8.6 mg tablet (Senokot) 17.2 mg (2 x 8.6 mg) PO QAM #60 12/20/23 tabs cholestyramine-aspartame 4 gram 1 ea PO BID 2 weeks #60 ea 05/10/24 oral powder for susp in a packet (Prevalite) Results & Data (ED) Vital Signs Vital Signs - 24 hr 05/09/24 14:00 Pulse Rate [Apical] 63 Respiratory Rate 20 Blood Pressure [Right Arm] 176/73 H Blood Pressure Mean [Right Arm] 107 Pulse Oximetry 98 Laboratory Data 05/10/24 07:34 05/10/24 07:34 Lab Results 05/09/24 05/09/24 05/09/24 Range/Units 08:58 08:58 08:58 WBC 6.86 (4.8-10.8) K/ul RBC 4.49 L (4.70-6.10) M/uL Hgb 11.6 L (14.0-18.0) g/dl Hct 36.0 L (42.0-52.0) % MCV 80.2 (80.0-100.0) fL MCH 25.8 (25.0-34.0) pg MCHC 32.2 (32.0-36.0) g/dL RDW Std Deviation 53.8 H (36.4-46.3) fL RDW Coeff of Rito 18.6 H (11.5-14.5) % Plt Count 157 (130-400) K/uL MPV 11.4 (9.4-12.4) fL Immature Gran % (Auto) 0.3 % Neut % (Auto) 65.2 % Lymph % (Auto) 15.7 % [place] % (Auto) 11.5 % Eos % (Auto) 6.6 % Baso % (Auto) 0.7 % Neut # (Auto) 4.47 (1.40-6.50) K/uL Lymph # (Auto) 1.08 L (1.20-3.40) K/uL [place] # (Auto) 0.79 H (0.11-0.59) K/uL Eos # (Auto) 0.45 (0.00-0.50) K/uL Baso # (Auto) 0.05 (0.00-0.20) K/uL Immature Gran # (Auto) 0.02 (0.01-0.20) K/uL PT 13.9 H (9.0-12.0) Seconds INR 1.3 H (0.9-1.1) Sodium 139 (136-145) mmol/L Potassium 3.3 L (3.5-5.1) mmol/L Chloride 109 H (98-107) mmol/L Carbon Dioxide 22 (21-32) mmol/L Anion Gap 8 (3-11) BUN 20 (6-23) mg/dl Creatinine 2.33 H (0.6-1.4) mg/dl Est Cr Clr Drug Dosing 32.3 ml/min eGFR 28.09 BUN/Creatinine Ratio 8.6 L (10-20) Glucose 123 H (70-99(Fasting)) mg/dl Calcium 8.7 (8.6-10.3) mg/dl Magnesium 2.1 (1.7-2.4) mg/dl Iron 36 (35-175) mcg/dl TIBC 323 (250-450) mcg/dl Transferrin 231 (200-360) mg/dl Transferrin % Sat 11 L (20-50) % Ferritin 164.2 (8-388) ng/ml Total Bilirubin 6.5 H (0.2-1.0) mg/dl Direct Bilirubin 4.3 H (0-0.2) mg/dl AST 246 H (13-39) U/L ALT 100 H (7-52) U/L Alkaline Phosphatase 1249 H (34-104) U/L Total Protein 7.5 (6.0-8.3) gm/dl Albumin 3.4 (3.4-5.0) gm/dl Lipase 245 H (11-82) U/L Acetaminophen < 3 L (10-30) ug/ml Hep Bs Antigen Negative Negative (Negative) Hep Bs Antibody Non-Immune Hep Bs Antibody, Quant < 3.00 (>or=10mIU/mL Immune) mIU/mL Hepatitis C Antibody Negative Negative (Negative) Administered Medications Amlodipine Besylate (Amlodipine Besylate 5 Mg Tab) 5 mg PO [facility] Stop: 06/09/24 08:59 Last Admin: 05/10/24 08:54 Dose: 5 mg Documented By: GILMAR Apixaban (Apixaban 5 Mg Tablet) 5 mg PO BID PENDING SALE TO [facility] Stop: 06/08/24 20:59 Last Admin: 05/10/24 08:54 Dose: 5 mg Documented By: Admin: 05/09/24 20:31 Dose: 5 mg Documented By: JONNA Aspirin (Aspirin 81 Mg Ectab) 81 mg PO [facility] Stop: 06/09/24 08:59 Last Admin: 05/10/24 08:54 Dose: 81 mg Documented By: GILMAR Atorvastatin Calcium (Atorvastatin 40 Mg Tab) 80 mg PO [facility] Stop: 06/08/24 20:59 Last Admin: 05/09/24 20:30 Dose: 80 mg Documented By: [facility] Calcitriol (Calcitriol 0.25 Mcg Capsule) 0.5 mcg PO [facility] Stop: 06/09/24 08:59 Last Admin: 05/10/24 08:54 Dose: 0.5 mcg Documented By: GILMAR Cholestyramine Resin (Cholestyramine Light 4 Gm Pkt) 4 gm PO BID@1000,2200 PENDING SALE TO [facility] Stop: 06/09/24 10:19 Last Admin: 05/10/24 11:04 Dose: 4 gm Documented By: ZA Furosemide (Furosemide 20 Mg Tab) 10 mg PO QAM [facility] TO [facility] Stop: 06/09/24 08:59 Last Admin: 05/10/24 08:54 Dose: 10 mg Documented By: ZA Gabapentin (Gabapentin 300 Mg Cap) 300 mg PO HS [facility] TO [facility] Stop: 06/08/24 20:59 Last Admin: 05/09/24 20:31 Dose: 300 mg Documented By: JONNA Insulin Aspart (Insulin Aspart Per Unit Charge) 0 units SC ACHS PENDING SALE TO [facility] Stop: 06/08/24 16:29 Last Admin: 05/10/24 12:26 Dose: 3 units Documented By: ZA Co-signed By: OJ Admin: 05/10/24 08:51 Dose: 6 units Documented By: ZA Co-signed By: MATT Admin: 05/09/24 20:57 Dose: Not Given Documented By: Admin: 05/09/24 17:56 Dose: Not Given Documented By: THAI Levothyroxine Sodium (Levothyroxine Sodium 112 Mcg Tablet) 112 mcg PO DAILYBB PENDING S[facility] TO [facility] Stop: 06/09/24 06:29 Last Admin: 05/10/24 05:33 Dose: 112 mcg Documented By: JONNA Losartan Potassium (Losartan Potassium 50 Mg Tab) [facility] [place] Stop: 06/09/24 08:59 Last Admin: 05/10/24 08:55 Dose: 50 mg Documented By: ZA Magnesium Oxide (Magnesium Oxide 400 Mg Tab) 400 mg PO QAM [facility] Stop: 06/09/24 08:59 Last Admin: 05/10/24 08:56 Dose: 400 mg Documented By: ZA Metoprolol Succinate (Metoprolol Succ 50mg Ext Rel Tab) 50 mg PO BID [facility] Stop: 06/08/24 20:59 Last Admin: 05/10/24 08:56 Dose: 50 mg Documented By: Admin: 05/09/24 20:30 Dose: 50 mg Documented By: JONNA Neomycin/Polymyxin/Gramicidin (Neomycin/Polymyxin/Gramicidin 10 Ml Btl) 2 drops OT TID [facility] TO [facility] Stop: 06/08/24 21:29 Last Admin: 05/10/24 08:56 Dose: 2 drops Documented By: Admin: 05/09/24 21:49 Dose: 2 drops Documented By: JONNA Pantoprazole Sodium (Pantoprazole 40 Mg Tab) 40 [facility] [place] Stop: 06/09/24 08:59 Last Admin: 05/10/24 08:57 Dose: 40 mg Documented By: ZA Polyethylene Glycol (Polyethylene (Miralax) 17 Gm Pack) 17 gm [facility] [place] Stop: 06/09/24 08:59 Last Admin: 05/10/24 08:57 Dose: Not Given Documented By: ZA Potassium Chloride (Potassium Chloride 10 Meq Tabcr) 10 meq [facility] [place] Stop: 06/09/24 08:59 Last Admin: 05/10/24 09:03 Dose: 10 meq Documented By: ZA Sennosides (Senna 8.6 Mg Tab) 17.2 mg PO [facility] Stop: 06/09/24 08:59 Last Admin: 05/10/24 09:03 Dose: 17.2 mg Documented By: ZA Sertraline HCl (Sertraline Hcl 50 Mg Tablet) 75 mg PO [facility] Stop: 06/09/24 08:59 Last Admin: 05/10/24 08:58 Dose: 75 mg Documented By: ZA Terazosin HCl (Terazosin Hcl 5 Mg Cap) 10 mg PO [facility] Stop: 06/09/24 08:59 Last Admin: 05/10/24 08:59 Dose: 10 mg Documented By: ZA Discontinued Medications Sodium Chloride (Nss) 500 mls @ 999 mls/hr IV .Q31M ONE Stop: 05/09/24 11:36 Last Infusion: 05/09/24 12:58 Dose: Infused Documented By: Admin: 05/09/24 11:13 Dose: 999 mls/hr Documented By: JAIR Potassium Chloride (Potassium Chloride Crtab 20 Meq Tabcr) 40 meq PO NOW STA Stop: 05/10/24 11:24 Last Admin: 05/10/24 11:34 Dose: 40 meq Documented By: ZA Imaging Data Radiologist's Impression: Abdomen/Pelvis CT 05/09/24 10:[address] WITHOUT CONTRAST CT DOSE: 1535.51 mGy.cm HISTORY: abn lft's TECHNIQUE: Multiaxial CT images of the abdomen and pelvis were performed without contrast. A dose lowering technique was utilized adhering to the principles of ALARA. COMPARISON STUDY: 05/28/2021 FINDINGS: ABDOMEN: There is mild fatty liver. Gallbladder is surgically absent. Otherwise the liver, spleen, pancreas, and adrenal glands are unremarkable. Kidneys show no hydronephrosis. There are scattered atherosclerotic calcifications. No abdominal aortic aneurysm. Stable tiny cyst inferior pole left kidney. Pelvis: Stable small fat-containing periumbilical hernia. Prostate is mildly enlarged. Urinary bladder is nondistended. There is mild retained stool. No bowel inflammation or obstruction. No free fluid, free air, or abscess. No enlarged adenopathy. Osseous structures: There is severe lower lumbar degenerative disc disease with Schmorl's nodes at L3-4 and L4-5. IMPRESSION: 1. No acute findings. 2. Mild fatty liver. 3. Otherwise as described. ACT 112: Negative or not required by law. The above report was generated using voice recognition software. It may contain grammatical, syntax or spelling errors. Electronically signed by: Artie Wei M.D. 05/09/2024 10:49 AM Abdomen Ultrasound 05/09/24 12:43 US abdomen limited HISTORY: abn lft's. COMPARISON: CT scan earlier today FINDINGS: Pancreas is not well seen due to overlying bowel gas artifact. Liver measures 19 cm. Portions of the liver are not well seen. Liver is grossly unremarkable. Common bile duct measures normal diameter of 4 mm. Gallbladder is surgically absent. There is normal direction of flow in the portal vein. Right kidney shows no hydronephrosis. IMPRESSION: Limited but grossly unremarkable exam. ACT 112: Negative or not required by law. Electronically signed by: Artie Wei M.D. 05/09/2024 1:45 PM Discharge Plan Visit Data Chief Complaint: Hypoglycemia Stated Complaint: HYPOGLYCEMIA ED Provider: Alycia Almendarez Discharge Problem: Jaundice, Abnormal LFTs Patient Disposition: Admitted As Inpatient Discharge Instructions Interventions: ED Discharge Assessment Last Done: 05/09/24 15:50
[2024-05-09 09:46] LABS: Basophils # (auto) 0.05 K/uL (0.00-0.20); Basophils % (auto) 0.7 %; Eosinophils # (auto) 0.45 K/uL (0.00-0.50); Eosinophils % (auto) 6.6 %; Hemoglobin 11.6 g/dl (14.0-18.0); Immature Granulocytes # (auto) 0.02 K/uL (0.01-0.20); Immature Granulocytes % (auto) 0.3 %; Lymphocytes # (auto) 1.08 K/uL (1.20-3.40); Lymphocytes % (auto) 15.7 %; Mean Corpuscular Hemoglobin 25.8 pg (25.0-34.0); Mean Corpuscular Hgb Conc 32.2 g/dL (32.0-36.0); Mean Corpuscular Volume 80.2 fL (80.0-100.0); Mean Platelet Volume 11.4 fL (9.4-12.4); Monocytes # (auto) 0.79 K/uL (0.11-0.59); Monocytes % (auto) 11.5 %; Neutrophils # (auto) 4.47 K/uL (1.40-6.50); Neutrophils % (auto) 65.2 %; Platelet Count 157 K/uL (130-400); RDW Coefficient of Variation 18.6 % (11.5-14.5); RDW Standard Deviation 53.8 fL (36.4-46.3); Red Blood Count 4.49 M/uL (4.70-6.10); White Blood Count 6.86 K/ul (4.8-10.8)
[2024-05-09 10:04] LABS: Albumin Level 3.4 gm/dl (3.4-5.0); BUN Creatinine Ratio 8.6 (10-20); Bilirubin Direct 4.3 mg/dl (0-0.2); Bilirubin,Total 6.5 mg/dl (0.2-1.0); Calcium 8.7 mg/dl (8.6-10.3); Creatinine Clr Calc Pharmacy 32.3 ml/min; Magnesium 2.1 mg/dl (1.7-2.4); Potassium 3.3 mmol/L (3.5-5.1); Total Protein 7.5 gm/dl (6.0-8.3)
[2024-05-09 10:11] LABS: INR 1.3 (0.9-1.1); Prothrombin Time 13.9 Seconds (9.0-12.0)
--- OUTSIDE RECORDS SUMMARY | 2024-05-09 10:44 | External Medical Summary | Summary of Care ---
Author Name Unknown Organization [facility] Address [address] [place] [address] Phone [phone] Care Team Providers Care Tank Truck Milk Receiver Name Role Phone Alek Vera Primary Care Provider [phone] Reason for Visit * Reason Comments Pacemaker Clinic Encounter Details Date Type Department Care Team (Late st Contact Info) Description 04/13/2024 1:00 PM EST Cardiac Studies Cardiology, [place] [address], [place] [id number] [place] [address] [place] [address] CHB (complete heart block) (HCC)*; Cardiac pacemaker in situ Allergies Active Allergy Reactions Criticality Noted Date Comments Cefaclor 11/19/1998 ITCHING Oxycodone 03/24/2012 "Makes me goofy" documented as of this encounter (statuses as of 04/13/2024) Medications TERAZOSIN HCL 10 MG PO CAPS Take 1 Capsule by mouth in the morning. 0 009 Active ASPIRIN 81 MG PO CHEWIndications:D iaphragmatic hernia,Lipoma of unspecified site,Benign paroxysmal vertigo,Pulsatile tinnitus,Polyneur opathy in diabetes(357.2),A DVANCE DIRECTIVE INFORMATION,DM type 2, goal A1c below 7,Dyslipidemia, goal LDL below 100,Chronic venous hypertension with inflammation,HTN, goal below 140/80,Impacted cerumen,Otitis externa, acute,Otitis externa, chronic,Hearing loss,Snoring disorder,Esophage al reflux,Chronic rhinitis,HTN, goal to be determined,Acute myocardial infarction, subendocardial infarction, episode of care unspecified,INTER FACED RESULT 1 Tab Oral Daily 30 Tab 3 013 Active levothyroxine (LEVOXYL) 100 MCG Tablet Take 112 mcg by mouth daily first thing in the morning. Active Calcitriol 0.5 MCG Oral Capsule (Rocaltrol) Take 1 Capsule by mouth in the morning. 021 Active Atorvastatin Calcium 80 MG Oral Tablet (Lipitor)Indicati ons:Dyslipidemia, goal LDL below 100,HTN, goal to be determined,Ceballos ry artery disease involving [place] coronary artery of [place] heart without angina pectoris Take 1 Tablet by mouth every afternoon. 90 Tablet 3 022 Active Additional Information Patient taking differently:80 mg OralQHS, Reported on 04/03/2024 Potassium Chloride Rhona ER 20 MEQ Oral Tablet Extended Release (Klor-Con M20)Indications:C oronary artery disease involving [place] coronary artery of [place] heart without angina pectoris,HTN, goal below 140/80 Take 1 Tablet by mouth daily. 90 Tablet 3 022 Active Additional Information Patient taking differently: 10 mEqOral Daily(AM), Reported on 04/03/2024 Jardiance 25 MG Oral Tablet Take 1 Tablet by mouth in the morning. 022 Active Magnesium Oxide 400 MG Oral Tablet daily. 022 Active Sertraline HCl 50 MG Oral Tablet Take 1.5 Tablets by mouth in the morning. Active Acetaminophen 325 MG Oral Tablet (Tylenol) Take 2 Tablets by mouth 3 times a day as needed. Active Gabapentin 300 MG Oral Capsule (Neurontin) Take 1 Capsule by mouth at bedtime. 023 Active Furosemide 20 MG Oral Tablet (Lasix)Indication s:Coronary artery disease involving [place] coronary artery of [place] heart without angina pectoris,HTN, goal below 140/80 Take 1 Tablet by mouth in the morning. 90 Tablet 3 023 Active Additional Information Patient taking differently: 10 mgOral Daily(AM), Reported on 04/03/2024 Nitroglycerin 0.4 MG Sublingual Tablet Sublingual (Nitrostat)Indica tions:Coronary artery disease involving [place] heart PLACE 1 TABLET UNDER THE TONGUE AND ALLOW TO DISSOLVE EVERY 5 MINUTES NEEDED FOR CHEST PAIN. (MAXIMUM 3 TABLETS. IF CHEST PAIN IS NOT RELIEVED, CALL 911) 25 Tablet 3 023 Active Additional Information Patient not taking.Reported on 04/03/2024 Pantoprazole Sodium 40 MG Oral Tablet Delayed Release (Protonix)Indicat ions:Dyslipidemia , goal LDL below 100,HTN, goal to be determined,HTN, goal below 140/80,Diaphragma tic hernia,Type 2 diabetes mellitus with hemoglobin A1c goal of less than 7.0% (HCC),Chronic venous hypertension with inflammation,Impa cted cerumen,Otitis externa, acute,Otitis externa, chronic,Hearing loss,Esophageal reflux,Chronic rhinitis,Unstable angina (HCC) Take 1 Tablet by mouth in the morning. 90 Tablet 3 023 Active Mounjaro 5 MG/0.5ML Subcutaneous Solution Pen-injector Inject 5 mg under the skin once a week. 024 Active Tresiba FlexTouch 200 UNIT/ML Subcutaneous Solution Pen-injector Inject 30 Units under the skin in the morning. 5 Each Active Additional Information Patient taking differently: 40 UnitsSubcutaneous Daily(AM), Reported on 04/03/2024 NovoLOG FlexPen 100 UNIT/ML Subcutaneous Solution Pen-injector Consult sliding scale with meals and before bedtime 1 Each 024 Active Metoprolol Succinate ER 50 MG Oral Tablet Extended Release 24 Hour (toPROL XL) Take 1 Tablet by mouth in the morning and 1 Tablet before bedtime. 60 Tablet 024 Active Polyethylene Glycol 3350 17 GM Oral Packet (Miralax) Take 1 Packet by mouth in the morning. Hold for loose stool. 14 Each 024 Active Losartan Potassium-HCTZ 100-25 MG Oral Tablet (Hyzaar)Indicatio ns:HTN, goal below 140/80 Take 1 Tablet by mouth in the morning. 90 Tablet 3 024 Active Additional Information Patient not taking.Reported on 03/27/2024 Insulin Lispro (1 Unit Dial) 100 UNIT/ML Subcutaneous Solution Pen-injector (Admelog SoloStar) Inject under the skin three times a day with meals. Sliding scale w/ meals and at bedtime. Active amLODIPine Besylate 5 MG Oral Tablet (Norvasc) Take 1 Tablet by mouth in the morning. Active Apixaban 5 MG Oral Tablet (Eliquis) Take 1 Tablet by mouth in the morning and 1 Tablet before bedtime. Active Losartan Potassium 50 MG Oral Tablet (Cozaar) Take 1 Tablet by mouth in the morning. Active Senna 8.6 MG Oral Capsule Take by mouth daily. 2 tablets. Active Ondansetron HCl 4 MG Oral Tablet Take 1 Tablet by mouth every 8 hours as needed for Nausea. Active documented as of this encounter (statuses as of 04/13/2024) Active Problems Problem Noted Date Diagnosed Date Elective replacement indicated for pacemaker 04/2023 Leg DVT (deep venous thromboembolism), acute, ri ght 09/09/2023 Generalized weakness 09/09/2023 On mechanically assisted ventilation 09/07/2023 Pulmonary embolism 11/17/2021 Stage 3b chronic kidney disease 11/12/2021 Stasis dermatitis of both legs 03/06/2015 Overview (03/06/2015): ICD10 Atrioventricular block 01/16/2015 Cardiac pacemaker in situ 01/16/2015 BPH without obstruction/lower urinary tract symp toms 12/18/2014 Syncope and collapse 10/31/2014 Coronary artery disease invo lving [place] coronary artery without angina pectoris 10/31/2014 Hematuria, gross 2014 Chronic coronary artery disease 03/12/2014 S/P primary angioplasty with coronary stent 10/03 Dyslipidemia, goal LDL below 70 10/21/2012 Hearing loss 03/01/2012 Snoring 03/01/2012 Overview (07/16/2015): ICD-10 update of inactive term Esophageal reflux 03/01/2012 Chronic rhinitis 03/01/2012 HTN, goal below 140/80 11/23/2011 Overview: Per HTN Protocol #27. Dyslipidemia, goal LDL below 100 03/14/2009 Overview (03/14/2009): Per Lipid Taxonomy. Type 2 diabetes mellitus wit h hemoglobin A1c goal of less than 7.0% 01/31/2009 Overview (07/30/2015): Per Diabetes Taxonomy. ICD-10 update of inactive term Diabetic polyneuropathy 08/11/2001 Overview (06/21/2015): ICD-10 update of inactive term BENIGN PARXYSMAL VERTIGO 02/07/2001 PULSATILE TINNITUS 02/07/2001 Lipoma 02/04/2001 Overview (01/04/2017): ICD-10 update of inactive term SYNDROME X 11/15/2000 Diaphragmatic hernia documented as of this encounter (statuses as of 04/13/2024) Resolved Problems Problem Noted Date Diagnosed Date Resolved Date Acute metabolic encephalopathy 09/07/2023 09/11/2023 Diabetic ketoacidosis with c reginaldo associated with type 2 diabetes mellitus 09/07/2023 09/11/2023 Acute renal failure superimp osed on stage 3 chronic kidney disease 09/07/2023 09/11/2023 Spells of decreased attentiveness 09/06/2023 09/11/2023 Acute respiratory failure with hypoxia 11/17/2021 11/19/2021 Unresponsive episode 11/12/2021 022 Hypoglycemia associated with type 2 diabetes mellitus 11/12/2021 11/13/2021 Chest pain 09/28/2012 02/06/2013 [employer] Other*[id number] 09/28/2012 05/12/2016 Overview (09/28/2012): Study Title: Genomic Markers for Patients with Cardiovascular Disease Project # [id number] Nurses' Association Executive Director: Jody Grijalva MD [phone] Impacted cerumen 03/01/2012 01/30/2015 Otitis externa, acute 03/01/20122014 Otitis externa, chronic 03/01/201201/04 Stasis Dermatitis 06/30/2010 03/06/2015 Obesity, morbid (more than 1 00 lbs over ideal weight or BMI > 40) 09/17/2009 10/21/2012 Overview (06/24/2015): Per Obesity Protocol, #19 ICD-10 update of inactive term HTN, GOAL BELOW 130/80 02/26/200911/25 Overview (02/26/2009): Modified per HTN protocol #16. ADVANCE DIRECTIVE INFORMATION 05/18/2005 02/07/2024 Overview (05/18/2005): No, Advance Directive brochure given to patient. Type 2 diabetes mellitus wit h hemoglobin A1c goal of less than 7.0% 01/31/2009 Overview (07/30/2015): Per Diabetes Taxonomy. ICD-10 update of inactive term HYPERTENSION NOS 02/26/2009 Overview (02/26/2009): Modified per HTN protocol #16. HYPERLIPIDEMIA NEC-NOS 03/14 Overview (03/14/2009): Per Lipid Taxonomy. documented as of this encounter (statuses as of 04/13/2024) Immunizations Name Administration Dates Next Due COVID-19 mRNA, LNP-s, No Pre serve, 2-Dose Series (Moderna) 07/20/2020,06/22/2020 Pneumococcal Conjugate Vacci ne, 20-valent ([id number]) 09/12/2023,09/11/2023(Deferred: Patient Refused - " I want to wait till later in the year") Seasonal Influenza Vac., MDV , IM, 0.5 mL (Fluzone) 02/04/2012 Seasonal Influenza, Quadrivalent, ID 01/25/2020 TDAP (age 10 and older)(Boostrix) 10/27/2017 documented as of this encounter Social History Tobacco Use Types Packs/Day Years Used Date Smoking Tobacco: Former Cigarettes 1 1 1 966 - 1967 Pipe Smokeless Tobacco: Former Chew Quit: 09/03/2002 Alcohol Use Standard Drinks/Week Comments Not Currently 1 (1 standard drink = 0.6 oz pur e alcohol) occasionally Sex and Gender Information Value Date Recorded Sex Assigned at Not on file Legal Sex Male 5:57 AM EST Gender Identity Not on file Sexual Orientation Not on file documented as of this encounter Functional Status * Are you deaf or do you have serious difficulty hearing? Answer Date of Assessment Author No 11/17/2021 4:40 AM EDT Kameron George RN * Are you blind or do you have serious difficulty seeing, even when wearing glasses? Answer Date of Assessment Author No 11/17/2021 4:40 AM EDT Kameron George RN * Do you have serious difficulty walking or climbing stairs? (5 years old or older) Answer Date of Assessment Author Yes 11/17/2021 4:40 AM EDT Kameron George RN * Do you have difficulty dressing or bathing? (5 years old or older) Answer Date of Assessment Author Yes 11/17/2021 4:40 AM EDT Kameron George RN * Because of a physical, mental, or emotional condition, do you have difficulty doing errands alone such as visiting a doctors office or shopping? (15 years old or older) Answer Date of Assessment Author Yes 11/17/2021 4:40 AM EDT Kameron George RN documented as of this encounter Mental Status * Because of a physical, mental, or emotional condition, do you have serious difficulty concentrating, remembering, or making decisions? (5 years old or older) Answer Entry Date Author No 11/17/2021 4:40 AM EDKameron Larios RN documented in this encounter Progress Notes * Judy Rivas LPN - 04/13/2024 1:18 PM EST Chief Complaint Patient presents with Pacemaker Clinic Postop wound check s/p gen change to an Butcher PPM Primaseal dressing removed. Right pectoral device pocket appears to be healing. No drainage is noted. Incision edges are in approximation. minimal ecchymosis is noted. Area is soft to palpation. Incision cleansed with alcohol wipe. Education was provided along with the [facility] booklet. Routine remote is planned for 08/08/2024 and in-office follow up is planned for 04/2025 and as needed Patient and implanted device were evaluated today in the [facility]. Providers please see scanned report in the Scans tab. Judy Rivas LPN documented in this encounter Plan of Treatment Upcoming Encounters Date Type Department Care Team (Late st Contact Info) Description 03/12/2025 10:00 AM EST Office Visit Cardiology, [place] [address] [place] [address] Stacie uAgustine CRNP [address] [place] [address] Scheduled Procedures Name Priority Associated Diagnoses Date/Ti me COLONOSCOPY FLEXIBLE PROXIMA L DIAGNOSTIC Recall History of colonic polyps Health Maintenance Due Date Last Done Comments DXA Scan 1947 Depression Screening 1959 Diabetic Foot Exam 1965 Hepatitis C Screening 1965 Zoster Vaccines (1 of 2) 1997 Diabetic Eye Exam 08/02/2002 08/02/2001, , 01/20/2001, Additional history exists Albumin/Creatinine Ratio 04/12/2010 010, 11/15/2000, 08/30/1997 Colonoscopy 03/16/2022 03/16/2019, 03/05, 12/08/2017, Additional history exists COVID-19 Vaccine ( season) 2023 03/15/2023, 07/20/2020, 06/22/2020 Influenza Vaccine (FLU shot) (#1) 2023 01/25/2020, 01/10/2019, 01/03/2018, Additional history exists HbA1c 03/14/2024 09/13/2023, 11/03, 05/24/2018, Additional history exists CKD PHOS USE SMARTSET 75565 09/09/2024 06/0 10/2023, 09/05/2023, 11/18/2021 GFR 09/25/2024 03/27/2024, 09/03, 09/13/2023, Additional history exists TSH 10/10/2024 10/11/2023, 09/03, 09/07/2023, Additional history exists CKD HGB USE SMARTSET 31371 03/27/202503/27, 09/20/2023, 09/13/2023, Additional history exists DTap/Tdap Vaccines (2 - Td or Tdap) 10/28/2027 10/27/2017, 02/08/1995 Pneumococcal Vaccine: 50+ Years Completed 09/12/2023, 09/05/2014, 04/05/2011, Additional history exists HPV (Gardasil) Vaccine Aged Out No lo nger eligible based on patient's age to complete this topic Hepatitis B Vaccine Aged Out No longe r eligible based on patient's age to complete this topic MENINGOCOCCAL (MENACTRA/MENVEO) Aged Out No longer eligible based on patient's age to complete this topic documented as of this encounter Medical Devices Implanted Type Area Auditor/Quality Device Identifier Shelf Expiration Date Model / Serial / Lot Pacemaker Dr-Rf [id number] - [id number] - [id number] Implanted:Qty: 1 on 04/03/2024 by Ashley Quezada DO at OR [facility] Pacemaker Right: Chest [employer] 07/03/2025 [id number] / [id number] / Medtronic Implanted:Qty: 1 on 12/27/2014 by Ashley Quezada DO at OR [facility] Right: Chest [employer] : KENNEDY 11/26/2016 5076-52 / [id number] / [id number] Description:atrial lead Medtronic Ventricular Lead Implanted:Qty: 1 on 12/27/2014 by Ashley Quezada DO at OR [facility] Right: Chest [employer] : CRM 11/01/2016 5076-58 / [id number] / documented as of this encounter Visit Diagnoses Diagnosis CHB (complete heart block) (HCC)- Primary Atrioventricular block, complete Cardiac pacemaker in situ documented in this encounter Advance Directives Documents on File Type Date Recorded Patient Beam Carrier Hauler Pusher Expl anation Advance Directives and Living Will 09/07/2023 Carolyne Cooper signed on 01/26/2019 Living Will and Health Care Power of Nonprofit Director * Full Code (Latest Code Status on File) Date Activated Date Inactivated Comments 09/06/2023 1:16 AM 09/12/2023 3:24 PM This order ref lects the patients wishes and were consensually agreed upon. Question Answer Comments Discussion of Advance Directives occurred with: Family Does the patient have a Living Will? No Does the patient have Health Care Power of Attor yaron? No * Full Code Date Activated Date Inactivated Comments 11/17/2021 3:19 AM 11/19/2021 7:08 PM This order r eflects the patients wishes and were consensually agreed upon. Question Answer Comments Discussion of Advance Directives occurred with: Not Discussed Does the patient have a Living Will? No Does the patient have Health Care Power of Attor yaron? No * Full Code Date Activated Date Inactivated Comments 11/12/2021 7:53 PM 11/13/2021 8:20 PM This order r eflects the patients wishes and were consensually agreed upon. Question Answer Comments Discussion of Advance Directives occurred with: Patient * Full Code Date Activated Date Inactivated Comments 10/31/2014 5:10 PM 11/02/2014 8:00 PM This order r eflects the patients wishes and were consensually agreed upon. Question Answer Comments Discussion of Advance Directives occurred with: Patient Does the patient have a Living Will? No Does the patient have Health Care Power of Attor yaron? No * Full Code Date Activated Date Inactivated Comments 10/16/2014 1:29 PM 10/16/2014 5:49 PM This order r eflects the patients wishes and were consensually agreed upon. Question Answer Comments Discussion of Advance Directives occurred with: Not Discussed Healthcare Agents on File Name Relationship Healthcare Agent Relationship Communication Carolyne Stover Adult Child Health Care Agen t (per Health Care Power of Nonprofit Director document) Ginger Cooper Adult Child First Alternate Health Care Agent (per Health Care Power of Nonprofit Director document) Care Teams Tank Truck Milk Receiver Relationship Specialty Start Date End Date Alek Vera DO [address] [place] [address] PCP - General Family Medicine 02/16/22 documented as of this encounter
--- OUTSIDE RECORDS SUMMARY | 2024-05-09 10:44 | External Medical Summary | Summary of Care ---
Author Name Unknown Organization [facility] Address [address] [place] [address] Phone [phone] Care Team Providers Care Daycare Manager Name Role Phone Alek Vera Primary Care Provider [phone] Encounter Details Date Type Department Care Team (Late st Contact Info) Description 04/18/2024 Result Scan Unspecified Department Ashley Quezada Elvira DO [address] [place] [address] <No scans attached> Allergies Active Allergy Reactions Criticality Noted Date Comments Cefaclor 11/19/1998 ITCHING Oxycodone 03/24/2012 "Makes me goofy" documented as of this encounter (statuses as of 04/19/2024) Medications TERAZOSIN HCL 10 MG PO CAPS [...] to be determined,Ceballos ry artery disease involving [place] coronary artery of [place] heart without angina pectoris Take 1 Tablet by mouth every afternoon. 90 Tablet 3 022 Active Additional Information Patient taking differently:80 mg OralQHS, Reported on 04/03/2024 Potassium Chloride Rhona ER 20 MEQ Oral Tablet Extended Release (Klor-Con M20)Indications:C oronary artery disease involving [place] coronary artery of [place] heart without angina pectoris,HTN, goal below 140/80 [...] Oral Tablet (Lasix)Indication s:Coronary artery disease involving [place] coronary artery of [place] heart without angina pectoris,HTN, goal below 140/80 Take 1 Tablet by mouth in the morning. 90 Tablet 3 023 Active Additional Information Patient taking differently: 10 mgOral Daily(AM), Reported on 04/03/2024 Nitroglycerin 0.4 MG Sublingual Tablet Sublingual (Nitrostat)Indica tions:Coronary artery disease involving [place] heart PLACE 1 TABLET UNDER THE TONGUE [...] mg under the skin once a week. Active Tresiba FlexTouch 200 UNIT/ML Subcutaneous Solution [...] and 1 Tablet before bedtime. 60 Tablet Active Polyethylene Glycol 3350 17 GM Oral Packet (Miralax) Take 1 Packet by mouth in the morning. Hold for loose stool. 14 Each Active Losartan Potassium-HCTZ 100-25 MG Oral Tablet [...] as of this encounter (statuses as of 04/19/2024) Active Problems Problem Noted Date Diagnosed Date [...] collapse 10/31/2014 Coronary artery disease invo lving [place] coronary artery without angina pectoris 10/31/2014 Hematuria, [...] as of this encounter (statuses as of 04/19/2024) Resolved Problems Problem Noted Date Diagnosed Date [...] Chest pain 09/28/2012 02/06/2013 [employer] Other*[id number] 09/28/2012 05/12/2016 Overview (09/28/2012): Study Title: Genomic Markers for Patients with Cardiovascular Disease Project # [id number] Culinary Director: Jody Grijalva MD [phone] Impacted cerumen 03/01/2012 01/30/2015 Otitis externa, acute [...] as of this encounter (statuses as of 04/19/2024) Immunizations Name Administration Dates Next Due COVID-19 mRNA, LNP-s, No Pre serve, 2-Dose Series (Moderna) 07/20/2020,06/22/2020 Pneumococcal Conjugate Vacci ne, 20-valent ([id number]) 09/12/2023,09/11/2023(Deferred: Patient Refused - " I want [...] of Assessment Author Yes 11/17/2021 4:40 AM Kameron Ruiz RN documented as of this encounter Mental Status * Because of a physical, mental, or emotional condition, do you have serious difficulty concentrating, remembering, or making decisions? (5 years old or older) Answer Entry Date Author No 11/17/2021 4:40 AM Kameron Ruiz RN documented in this encounter Plan of Treatment Upcoming Encounters Date Type Department Care Team (Late st Contact Info) Description 03/12/2025 10:00 AM EST Office Visit Cardiology, [place] [address] [place] [address] [facility] Augustine [facility] [address] [facility] [place] [address] Scheduled Procedures Name Priority Associated Diagnoses Date/Ti [...] 03/05, 12/08/2017, Additional history exists COVID-19 Vaccine (4 - 2024-25 season) 2023 03/15/2023, 07/20/2020, 06/22/2020 Influenza Vaccine (FLU shot) (#1) 2023 01/25/2020, 01/10/2019, 01/03/2018, Additional history exists HbA1c 03/14/2024 09/13/2023, 11/03, 05/24/2018, Additional history exists CKD PHOS USE SMARTSET 26535 09/09/2024 06/0 10/2023, 09/05/2023, 11/18/2021 GFR 09/25/2024 03/27/2024, 09/03, 09/13/2023, Additional history exists TSH 10/10/2024 10/11/2023, 09/03, 09/07/2023, Additional history exists CKD HGB USE SMARTSET 12439 03/27/202503/27, 09/20/2023, 09/13/2023, Additional history exists DTap/Tdap [...] this encounter Medical Devices Implanted Type Area Is Support Analyst Device Identifier Shelf Expiration Date Model / Serial / Lot Pacemaker Dr-Rf [id number] - [id number] - [id number] Implanted:Qty: 1 on 04/03/2024 by Ashley Quezada DO at OR [facility] Pacemaker Right: Chest [employer] 07/03/2025 [id number] / [id number] / Medtronic Implanted:Qty: 1 on 12/27/2014 by Ashley Quezada DO at OR [facility] Right: Chest [employer] : CRM 11/26/2016 5076-52 / [id number] Description:atrial lead Medtronic Ventricular Lead Implanted:Qty: 1 on 12/27/2014 by Ashley Quezada DO at OR [facility] Right: Chest [employer] : KENNEDY 11/01/2016 5076-58 / [id number] / documented as of this encounter Procedures Procedure Name Priority Date/Time Associated Diagnosis Comments CARDIOLOGY SCANNED RESULT 04/18/2024 documented in this encounter Results * CARDIOLOGY SCANNED RESULT (04/18/2024) 04/18/2024 Ashley Quezada DO OTHER Final R esult documented in this encounter Advance Directives Documents on File Type Date Recorded Patient Energy Rater Expl anation Advance Directives and Living Will 09/07/2023 Carolyne Cooper signed on 01/26/2019 Living Will and Health Care Power of Engine House Helper * Full Code (Latest Code Status on [...] Agen t (per Health Care Power of Engine House Helper document) Ginger Cooper Adult Child First Alternate Health Care Agent (per Health Care Power of Engine House Helper document) Care Teams Daycare Manager Relationship Specialty Start Date End Date Alek Vera DO [address], [place] [phone] PCP - General Family Medicine 02/16/22 documented as of this encounter
--- OUTSIDE RECORDS SUMMARY | 2024-05-09 10:45 | External Medical Summary | Summary of Care ---
Author Name Unknown Organization [facility] Address [address] [place] [address] Phone [phone] Care Team Providers Care Container Repairer Name Role Phone Alek Vera Primary Care Provider + [phone] Encounter Details Date Type Department Care Team (Late st Contact Info) Description 03/15/2024 Result Scan Unspecified Department Ashley Quezada DO [address] [place] [address] <No scans attached> Allergies Active Allergy Reactions Criticality Noted Date Comments Cefaclor 11/19/1998 ITCHING Oxycodone 03/24/2012 "Makes me goofy" documented as of this encounter (statuses as of 03/15/2024) Medications TERAZOSIN HCL 10 MG PO CAPS Take 1 Capsule by mouth at bedtime. 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 Active Calcitriol 0.5 MCG Oral Capsule (Rocaltrol) Take 1 Capsule by mouth in the morning. 1 Active Atorvastatin Calcium 80 MG Oral Tablet (Lipitor)Indication s:Dyslipidemia, goal LDL below 100,HTN, goal to be determined,Coronary artery disease involving [place] coronary artery of [place] heart without angina pectoris Take 1 Tablet by mouth every afternoon. 90 Tablet 3 2 Active Potassium Chloride Rhona ER 20 MEQ Oral Tablet Extended Release (Klor-Con M20)Indications:Cor onary artery disease involving [place] coronary artery of [place] heart without angina pectoris,HTN, goal below 140/80 Take 1 Tablet by mouth daily. 90 Tablet 3 2 Active Jardiance 25 MG Oral Tablet Take 1 Tablet by mouth in the morning. 2 Active Magnesium Oxide 400 MG Oral Tablet TAKE 1 TAB BY MOUTH TWICE A DAY 2 Active Sertraline HCl 50 MG Oral Tablet Take 1.5 Tablets by mouth in the morning. Active Acetaminophen 325 MG Oral Tablet (Tylenol) Take 2 Tablets by mouth 3 times a day as needed. Active Gabapentin 300 MG Oral Capsule (Neurontin) Take 1 Capsule by mouth at bedtime. 3 Active Furosemide 20 MG Oral Tablet (Lasix)Indications: Coronary artery disease involving [place] coronary artery of [place] heart without angina pectoris,HTN, goal below 140/80 Take 1 Tablet by mouth in the morning. 90 Tablet 3 3 Active Nitroglycerin 0.4 MG Sublingual Tablet Sublingual (Nitrostat)Indicati ons:Coronary artery disease involving [place] heart PLACE 1 TABLET UNDER THE TONGUE AND ALLOW TO DISSOLVE EVERY 5 MINUTES NEEDED FOR CHEST PAIN. (MAXIMUM 3 TABLETS. IF CHEST PAIN IS NOT RELIEVED, CALL 911) 25 Tablet 3 3 Active Pantoprazole Sodium 40 MG Oral Tablet Delayed Release (Protonix)Indicatio ns:Dyslipidemia, goal LDL below 100,HTN, goal to be determined,HTN, goal below 140/80,Diaphragmati c hernia,Type 2 diabetes mellitus with hemoglobin A1c goal of less than 7.0% (HCC),Chronic venous hypertension with inflammation,Impact ed cerumen,Otitis externa, acute,Otitis externa, chronic,Hearing loss,Esophageal reflux,Chronic rhinitis,Unstable angina (HCC) Take 1 Tablet by mouth in the morning. 90 Tablet 3 3 Active Mounjaro 5 MG/0.5ML Subcutaneous Solution Pen-injector Inject 5 mg under the skin once a week. 4 Active Tresiba FlexTouch 200 UNIT/ML Subcutaneous Solution Pen-injector Inject 30 Units under the skin in the morning. 5 Each 4 Active NovoLOG FlexPen 100 UNIT/ML Subcutaneous Solution Pen-injector Consult sliding scale with meals and before bedtime 1 Each 4 Active Metoprolol Succinate ER 50 MG Oral Tablet Extended Release 24 Hour (toPROL XL) Take 1 Tablet by mouth in the morning and 1 Tablet before bedtime. 60 Tablet 4 Active Polyethylene Glycol 3350 17 GM Oral Packet (Miralax) Take 1 Packet by mouth in the morning. Hold for loose stool. 14 Each 4 Active Losartan Potassium-HCTZ 100-25 MG Oral Tablet (Hyzaar)Indications :HTN, goal below 140/80 Take 1 Tablet by mouth in the morning. 90 Tablet 3 4 Active documented as of this encounter (statuses as of 03/15/2024) Active Problems Problem Noted Date Diagnosed Date [...] collapse 10/31/2014 Coronary artery disease invo lving [place] coronary artery without angina pectoris 10/31/2014 Hematuria, [...] as of this encounter (statuses as of 03/15/2024) Resolved Problems Problem Noted Date Diagnosed Date [...] Chest pain 09/28/2012 02/06/2013 [employer] Other*[id number] 09/28/2012 05/12/2016 Overview (09/28/2012): Study Title: Genomic Markers for Patients with Cardiovascular Disease Project # [id number] Terminal Carman: Jody Grijalva MD [phone] Kevan villagomezn 03/01/2012 01/30/2015 Otitis externa, acute 03/01/20122014 Otitis [...] as of this encounter (statuses as of 03/15/2024) Immunizations Name Administration Dates Next Due COVID-19 mRNA, LNP-s, No Pre serve, 2-Dose Series (Moderna) 07/20/2020,06/22/2020 Pneumococcal Conjugate Vacci ne, 20-valent ([id number]) 09/12/2023,09/11/2023(Deferred: Patient Refused - " I want [...] Quit: 09/03/2002 Alcohol Use Standard Drinks/Week Comments Yes 1 (1 standard drink = 0.6 oz [...] of Assessment Author Yes 11/17/2021 4:40 AM [facility] Kameron George RN * Do you have [...] Upcoming Encounters Date Type Department Care Team (Latest Contact Info) Description 04/03/2024 8:30 AM EST Hospital Encounter OR [facility], Operating Room, [facility] - 4th Floor [address] [place] [address] Ashley Quezada, DO [address] [facility] [place] [address] 04/03/2024 8:30 AM EST - 04/03/2024 9:47 AM EST Surgery OR [facility], Operating Room, [facility] - 4th Floor [address] [place] [address] Ashley Quezada, DO [address] [facility] [place] [address] NEW DDD PACEMAKER GENERATOR ONLY 04/13/2024 1:00 PM EST Cardiac Studies Cardiology, [place] [address] [place] [address] [place] [address] [facility] [place] [address] 03/12/2025 10:00 AM EST Office Visit Cardiology, [place] [address] [place] [place] [address] Stacie Augustine CRNP [address] [facility] [place] [address] Scheduled Procedures Name Priority Associated Diagnoses Date/Ti me NEW DDD PACEMAKER GENERATOR ONLY Syncope and collapse Atrioventricular block Elective replacement indicated for pacemaker 04/03/2024 8:30 AM EST COLONOSCOPY FLEXIBLE PROXIMAL DIAGNOSTIC Recall History of colonic polyps Health [...] 03/14/2024 09/13/2023, 11/03, 05/24/2018, Additional history exists GFR 03/21/2024 09/20/2023, 09/03, 09/12/2023, Additional history exists CKD PHOS USE SMARTSET 71661 09/09/202410/2023, 09/05/2023, 11/18/2021 CKD HGB USE SMARTSET 48321 09/19/202409/19, 09/13/2023, 09/12/2023, Additional history exists TSH 10/10/2024 10/11/2023, 09/03, 09/07/2023, Additional history exists DTap/Tdap Vaccines (2 - Td or Tdap) 10/28/2027 10/27/2017, 02/08/1995 Pneumococcal Vaccine: 65+ Years Completed 09/12/2023, 09/05/2014, 04/05/2011, Additional history [...] this encounter Medical Devices Implanted Type Area Platform Builder Device Identifier Shelf Expiration Date Model / Serial / Lot Medtronic Implanted:Qty: 1 on 12/27/2014 by Ashley Quezada DO at OR [facility] Right: Chest MEDTR[employer] : CRM 11/26/2016 5076-52 / [id number] / [id number] Description:atrial lead Medtronic Ventricular Lead Implanted:Qty: 1 on 12/27/2014 by Ashley Quezada DO at OR [facility] Right: Chest [employer] : CRM 11/01/2016 5076-58 / [id number] / Medtronic Pacer Implanted:Qty: 1 on 12/27/2014 by Ashley Quezada DO at OR [facility] Right: Chest Medtrol 05/02/2016 [id number] / [id number] / documented as of this encounter Procedures Procedure Name Priority Date/Time Associated Diagnosis Comments CARDIOLOGY SCANNED RESULT 03/15/2024 documented in this encounter Results * CARDIOLOGY SCANNED RESULT (03/15/2024) 03/15/2024 us Ashley Quezada DO OTHER Final R esult documented in this encounter Advance Directives Documents on File Type Date Recorded Patient International Nurse Expl anation Advance Directives and Living Will 09/07/2023 Carolyne Cooper signed on 01/26/2019 Living Will and Health Care Power of Ceramic Engineering Professor * Full Code (Latest Code Status on [...] Agen t (per Health Care Power of Ceramic Engineering Professor document) Ginger Cooper Adult Child First Alternate Health Care Agent (per Health Care Power of Ceramic Engineering Professor document) Care Teams Container Repairer Relationship Specialty Start Date End Date Alek Vera DO [address] [place] [address] PCP - General Family Medicine 02/16/22 documented as of this encounter
--- OUTSIDE RECORDS SUMMARY | 2024-05-09 10:45 | External Medical Summary | Summary of Care ---
Author Name Unknown Organization [facility] Address [address] [place] [address] Phone [phone] Care Team Providers Care Fence Installer Helper Name Role Phone Alek Vera Primary Care Provider [phone] Reason for Visit * Reason Onset Date Comments Pacemaker Check 03/05/2024 HOSE BUILDER 02/18/24 Encounter Details Date Type Department Care Team (Late st Contact Info) Description 03/05/2024 Telephone Cardiology, [place] [address] [place] [address] [place] [address] [place] [address] Pacemaker Check (HOSE BUILDER 02/18/24) Allergies Active Allergy Reactions Criticality Noted Date Comments Cefaclor 11/19/1998 ITCHING Oxycodone 03/24/2012 "Makes me goofy" documented as of this encounter (statuses as of 03/13/2024) Medications TERAZOSIN HCL 10 MG PO CAPS [...] goal to be determined,Coronary artery disease involving [place] coronary artery of [place] heart without angina pectoris Take 1 Tablet by mouth every afternoon. 90 Tablet 3 2 Active Potassium Chloride Rhona ER 20 MEQ Oral Tablet Extended Release (Klor-Con M20)Indications:Cor onary artery disease involving [place] coronary artery of [place] heart without angina pectoris,HTN, goal below 140/80 [...] Oral Tablet (Lasix)Indications: Coronary artery disease involving [place] coronary artery of [place] heart without angina pectoris,HTN, goal below 140/80 Take 1 Tablet by mouth in the morning. 90 Tablet 3 3 Active Nitroglycerin 0.4 MG Sublingual Tablet Sublingual (Nitrostat)Indicati ons:Coronary artery disease involving [place] heart PLACE 1 TABLET UNDER THE TONGUE [...] as of this encounter (statuses as of 03/13/2024) Active Problems Problem Noted Date Diagnosed Date [...] collapse 10/31/2014 Coronary artery disease invo lving [place] coronary artery without angina pectoris 10/31/2014 Hematuria, [...] as of this encounter (statuses as of 03/13/2024) Resolved Problems Problem Noted Date Diagnosed Date [...] Chest pain 09/28/2012 02/06/2013 [employer] Other*[id number] 09/28/2012 05/12/2016 Overview (09/28/2012): Study Title: Genomic Markers for Patients with Cardiovascular Disease Project # [id number] Fire Prevention Bureau Captain: Jody Grijalva MD [phone] Impacted cerumen 03/01/2012 01/30/2015 Otitis externa, acute [...] as of this encounter (statuses as of 03/13/2024) Immunizations Name Administration Dates Next Due COVID-19 mRNA, LNP-s, No Pre serve, 2-Dose Series (Moderna) 07/20/2020,06/22/2020 Diptheria/Tetanus (Adult) 02/08/1995 PPD 11/19/1998 Pneumococcal Conjugate Vacci ne, 20-valent (Smvlnll54) 09/12/2023,09/11/2023(Deferred: Patient Refused - " I want to wait till later in the year") Pneumococcal Polysaccharide PPV23 (Pneumovax) 02/08/1995 Seasonal Influenza Vac., MDV , IM, 0.5 mL (Fluzone) 02/04/2012,02/17/2000 Seasonal Influenza, Quadrivalent, ID 01/25/2020 TDAP (age 10 and older)(Boostrix) 10/27/2017 documented as of this encounter Social History Tobacco Use Types Packs/Day Years Used Date Smoking Tobacco: Former Cigarettes 1 04 05 956 1966 Pipe Smokeless Tobacco: Former Chew Quit: 09/03/2002 [...] of Assessment Author No 11/17/2021 4:40 AM Kameron Ruiz RN * Are you blind or do you have serious difficulty seeing, even when wearing glasses? Answer Date of Assessment Author No 11/17/2021 4:40 AM Kameron Ruiz RN * Do you have serious difficulty walking or climbing stairs? (5 years old or older) Answer Date of Assessment Author Yes 11/17/2021 4:40 AM Kameron Ruiz RN * Do you have difficulty dressing or bathing? (5 years old or older) Answer Date of Assessment Author Yes 11/17/2021 4:40 AM Kameron Ruiz RN * Because of a physical, mental, [...] Entry Date Author No 11/17/2021 4:40 AM EDT Kameron George RN documented in this encounter Miscellaneous Notes * Telephone Encounter - Karen Mcgovern NRCMA - 03/13/2024 3:45 PM EST Instructions faxed to facility as requested. DAVID Brady * Telephone Encounter - Shelby Calderon OSA - 03/10/2024 2:11 PM EST Person calling: Kamryn: Di Cooper [facility] Shaji Relationship to patient: n/a Phone/Fax to return call: [phone]; Reason for call(brief): Fax Pharmacy: n/a Provider Name: n/a Detailed message to office: Kamryn Jeff[facility] with patient instructions, date, & time of patient's upcoming procedure, but is requesting it to be refaxed to the office. Kamryn states that the date and time of the procedure is hard to make out. Please advise. Thank you, VIRGEN Lozoya * Addendum Note - Karen Mcgovern NRCMA - 03/08/2024 4:04 PM ESTAddended by: KAREN MCGOVERN on: 03/08/2024 04:04 PM Modules accepted: Orders * Addendum Note - Karen Mcgovern NRCMA - 03/08/2024 3:37 PM ESTAddended by: KAREN MCGOVERN on: 03/08/2024 03:37 PM Modules accepted: Orders * Telephone Encounter - Karen Mcgovern NRCMA - 03/08/2024 3:[address] Quezada, pt can be scheduled on 04/03/2024 at 8:30 am at [facility]. LMOM for Alicia to call back to confirm date, time and instructions (wash p/u). DAVID Brady * Telephone Encounter - Karen Mcgovern NRCMA - 03/08/2024 10:43 AM EST Spoke with Alicia to scheduled pt for replacement. Pt was offered 03/16 and that date does not work for them. Pt/Alicia is ask if this can be scheduled for 04/03/24 at [facility]. Will discuss with provider andmake pt aware. DAVID Brady * Telephone Encounter - Karen Mcgovern NRCMA - 03/07/2024 5:03 PM EST Will call pt to discuss date.time. DAVID Brady * Telephone Encounter - Judy Rivas LPN - 03/06/2024 7:37 AM EST Kamryn at assisted living advised. Aware that EP will be in touch. * Telephone Encounter - Judy Rivas LPN - 03/05/2024 12:53 PM EST Images from the original note were not included. Recent remote from pt's MDT [employer]vis[employer] PPM shows that he met HOSE BUILDER on 02/18/24. Pt had an EP appt on 02/17/24 to discuss nearing HOSE BUILDER. Looks like procedure was discuss with some instructions in chart. documented in this encounter Plan of Treatment Upcoming Encounters Date Type Department Care Team (Latest Contact Info) Description 04/03/2024 8:30 AM EST Hospital Encounter OR [facility], Operating Room, [facility] - 4th Floor [address] [facility] [place] [address] Ashley Quezada, DO [address] [facility] [place] [address] 04/03/2024 8:30 AM EST - 04/03/2024 9:47 AM EST Surgery OR [facility], Operating Room, [facility] - 4th Floor [address] [place] [address] Ashley Quezada, DO [address] [facility] [place] [address] NEW DDD PACEMAKER GENERATOR ONLY 04/13/2024 1:00 PM EST Cardiac Studies [facility], [place] [address] [facility] [place] [address] [place], [facility] [address] [facility] [place] [address] 03/12/2025 10:00 AM EST Office [address]iology, [address] [place] [address] Stacie Augustine CRNP [address] [facility] [place] [address] Scheduled Orders Name Type Priority Associated Diagnoses Orde r Schedule CBC Lab Routine Syncope and collapse Atrioventricular block Elective replacement indicated for pacemaker Expected: 03/08/2024, Expires: 03/08/2025 BASIC METABOLIC PANEL Lab Routine Syncope and collapse Atrioventricular block Elective replacement indicated for pacemaker Expected: 03/08/2024, Expires: 03/08/2025 Scheduled Procedures Name Priority Associated Diagnoses Date/Ti [...] Additional history exists CKD PHOS USE SMARTSET 41744 09/09/2024 06/0 10/2023, 09/05/2023, 11/18/2021 CKD HGB USE SMARTSET 86387 09/19/202409/19, 09/13/2023, 09/12/2023, Additional history exists TSH [...] this encounter Medical Devices Implanted Type Area Oil Lease Buyer Device Identifier Shelf Expiration Date Model / Serial / Lot Medtronic Implanted:Qty: 1 on 12/27/2014 by Ashley Quezada, DO at OR [facility] Right: Chest [employer] : CRM 11/26/2016 5076-52 / [id number] / [id number] Description:atrial lead Medtronic Ventricular Lead Implanted:Qty: 1 on 12/27/2014 by Ashley Quezada, at OR [facility] Right: Chest [employer] : KENNEDY 11/01/2016 5076-58 / [id number] / Medtronic Pacer Implanted:Qty: 1 on 12/27/2014 by Ashley Quezada, at OR [facility] Right: Chest Medtrol 05/02/2016 [id number] / [id number] / documented as of this encounter Visit Diagnoses Diagnosis Syncope and collapse- Primary Atrioventricular block Atrioventricular block, unspecified Elective replacement indicated for pacemaker Fitting and adjustment of cardiac pacemaker Elective replacement indicated for pacemaker- Primary Fitting and adjustment of cardiac pacemaker Syncope and collapse Atrioventricular block Atrioventricular block, unspecified Syncope and collapse Atrioventricular block Atrioventricular block, unspecified Elective replacement indicated for pacemaker Fitting and adjustment of cardiac pacemaker documented in this encounter Advance Directives Documents on File Type Date Recorded Patient Multi Spindle Operator Expl anation Advance Directives and Living Will 09/07/2023 Carolyne Cooper signed on 01/26/2019 Living Will and Health Care Power of Clinical Manager Home Care * Full Code (Latest Code Status on [...] Agen t (per Health Care Power of Clinical Manager Home Care document) Ginger Cooper Adult Child First Alternate Health Care Agent (per Health Care Power of Clinical Manager Home Care document) Care Teams Fence Installer Helper Relationship Specialty Start Date End Date Alek Vera DO [address] [place], [place] [id number] PCP - General Family Medicine 02/16/22 documented as of this encounter
--- OUTSIDE RECORDS SUMMARY | 2024-05-09 10:45 | External Medical Summary ---
Author Name Unknown Address Unknown Organization K09:[facility] [place] [address] Laboratory Report Ordering Provider Test Date Status CAMILA NGUYEN 03/27/2024 10:28:04 Final Observation Date Value Abnormality Reference (Units ) Status BUN 03/27/2024 10:28:04 23 Above high normal 6-20 (mg/dL) Final Creatinine 03/27/2024 10:28:04 2.2 Above high normal 0.6-1.2 (mg/dL) Final Glomerular filtration rate/1.73 sq M.predicted [Volume Rate/Area] in Serum, Plasma or Blood by Creatinine-based formula (CKD-EPI) 03/27/2024 10:28:04 30 Below low normal >=60 (mL/min) Final eGFR is calculated based on the CKD-EPI 2020 equation. Sodium 03/27/2024 10:28:04 142 135-146 (m mol/L) Final Potassium 03/27/2024 10:28:04 4.2 3.5-5.1 (m mol/L) Final Cl 03/27/2024 10:28:04 106 98-107 (mm ol/L) Final CO2 03/27/2024 10:28:04 23 22-32 (mmo l/L) Final Anion gap 03/27/2024 10:28:04 13 7-15 (mmol /L) Final Glucose 03/27/2024 10:28:04 170 Above high normal 70 -120 (mg/dL) Final Calcium 03/27/2024 10:28:04 9.3 8.4-10.2 ( mg/dL) Final Performing Location [facility] [place] [address]
--- OUTSIDE RECORDS SUMMARY | 2024-05-09 10:45 | External Medical Summary ---
Author Name Unknown Address Unknown Organization : Laboratory Report Ordering Provider Test Date Status CAMILA NGUYEN 04/03/2024 08:10:33 Final Observation Date Value Abnormality Reference (Units ) Status Glucose Point of Care 04/03/2024 08:10:33 80 70-120 (mg/dL) Final Performing Location
--- OUTSIDE RECORDS SUMMARY | 2024-05-09 10:45 | External Medical Summary | Summary of Care ---
Author Name Unknown Organization [facility] Address [address] [place] [address] Phone [phone] Care Team Providers Care Favor Maker Name Role Phone ChuyAlek pastrana Primary Care Provider + [phone] Reason for Visit * Reason Comments Outpatient Testing Encounter Details Date Type Department Care Team (Late st Contact Info) Description 03/27/2024 10:30 AM EST Laboratory Laboratory [facility] [address] [place] [phone] [facility] [address] [facility] [place] [address] Syncope and collapse; Atrioventricular block; Elective replacement indicated for pacemaker Allergies Active Allergy Reactions Criticality Noted Date Comments Cefaclor 11/19/1998 ITCHING Oxycodone 03/24/2012 "Makes me goofy" documented as of this encounter (statuses as of 03/27/2024) Medications TERAZOSIN HCL 10 MG PO CAPS [...] goal to be determined,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 10/31/2014 Hematuria, [...] as of this encounter (statuses as of 03/27/2024) Resolved Problems Problem Noted Date Diagnosed Date [...] Chest pain 09/28/2012 02/06/2013 [employer] Other*[id number] 09/28/2012 05/12/2016 Overview (09/28/2012): Study Title: Genomic Markers for Patients with Cardiovascular Disease Project # [id number] Adoption Counselor: Jody Grijalva MD [phone] Impacted cerumen 03/01/2012 01/30/2015 Otitis externa, acute [...] as of this encounter (statuses as of 03/27/2024) Immunizations Name Administration Dates Next Due COVID-19 mRNA, LNP-s, No Pre serve, 2-Dose Series (Moderna) 07/20/2020,06/22/2020 Pneumococcal Conjugate Vacci ne, 20-valent ([id number]) 09/12/2023,09/11/2023(Deferred: Patient Refused - " I want to wait till later in the year") Seasonal Influenza Vac., MDV , IM, 0.5 mL (Fluzone) 02/04/2012 Seasonal Influenza, Quadrivalent, ID 01/25/2020 TDAP (age 10 and older)(Boostrix) 10/27/2017 documented as of this encounter Social History Tobacco Use Types Packs/Day Years Used Date Smoking Tobacco: Former Cigarettes 1 1 966 - 1966 Pipe Smokeless Tobacco: Former Chew Quit: [...] 04/03/2024 8:30 AM EST Hospital Encounter OR [facility], Operating Room, [facility] - 4th Floor [address] [place] [phone] [facility] Que[facility]ada[facility] [place] [address] 04/03/2024 8:30 AM EST - 04/03/2024 9:47 AM EST Surgery OR [facility], Operating Room, [facility] - 4th Floor [address] [place] [phone] Ashley Quezada, DO [address] [place] [address] NEW DDD PACEMAKER GENERATOR ONLY 04/13/2024 1:00 PM EST Cardiac Studies Cardiology, [facility] [place] [address] [place] [address] [facility] [address] [place], Pacer Clinic [address] [facility] [place] [address] 03/12/2025 10:00 AM EST Office Visit Cardiology, [facility] [address] [place] [address] Stacie Augustine CRNP [address] [facility] [address] Pending Results Name Type Priority Associated Diagnoses Date /Time BASIC METABOLIC PANEL Lab Routine Syncope and collapse Atrioventricular block Elective replacement indicated for pacemaker 03/27/2024 10:28 AM EST Scheduled Procedures Name Priority Associated Diagnoses Date/Ti mn NEW DDD PACEMAKER GENERATOR ONLY Syncope and [...] history exists COVID-19 Vaccine ( season) 2023 07/20/2020, 06/22/2020 Influenza Vaccine (FLU shot) (#1) 2023 01/25/2020, 01/10/2019, 01/03/2018, Additional history exists HbA1c 03/14/2024 09/13/2023, 11/03, 05/24/2018, Additional history exists GFR 03/21/2024 09/20/2023, 09/03, 09/12/2023, Additional history exists CKD PHOS USE SMARTSET 56339 09/09/2024 06/0 10/2023, 09/05/2023, 11/18/2021 CKD HGB USE SMARTSET 20713 09/19/202403/27, 09/20/2023, 09/13/2023, Additional history exists TSH 10/10/2024 10/11/2023, [...] this encounter Medical Devices Implanted Type Area Sheet Metal Journeyman Device Identifier Shelf Expiration Date Model / Serial / Lot Medtronic Implanted:Qty: 1 on 12/27/2014 by Ashley Quezada DO at OR [facility] Right: Chest [employer] : CRM 11/26/2016 5076-52 / [id number] / [id number] Description:atrial lead Medtronic Ventricular Lead Implanted:Qty: 1 on 12/27/2014 by Ashley Quezada DO at OR [facility] Right: Chest [employer] : CRM 11/01/2016 5076-58 / [id number] / Medtronic Pacer Implanted:Qty: 1 on 12/27/2014 by Ashley Quezada DO at OR [facility] Right: Chest Medtrol 05/02/2016 [id number] / [id number] / documented as of this encounter Procedures Procedure Name Priority Date/Time Associated Diagnosis Comments CBC Routine 03/27/2024 10:28 AM EST Syncope and collapse Atrioventricular block Elective replacement indicated for pacemaker documented in this encounter Results * (ABNORMAL) CBC (03/27/2024 10:28 AM EST) WBC 8.93 4.00 - 10.80 K/uL 03/27/2024 10:39 AM EST [facility] 56 RBC 4.43 4.50 - 5.25 M/uL 03/27/2024 10:39 AM EST [facility] 56 HGB 11.9(L) 14.0 - 16.8 g/dL 03/27/2024 10:39 AM EST [facility] 56 HCT 38.7(L) 40.0 - 48.4 % 03/27/2024 10:39 AM EST [facility] 56 MCV 87.4 82.0 - 99.5 fL 03/27/2024 10:39 AM EST [facility] 56- MCH 26.9 27.0 - 34.0 pg 03/27/2024 10:39 AM EST [facility] 56 MCHC 30.7 32.0 - 36.0 g/dL 03/27/2024 10:39 AM EST [facility] 56 RDW 15.2 11.5 - 15.5 % 03/27/2024 10:39 AM EST [facility] 56- PLT 212 140 - 400 K/uL 03/27/2024 10:39 AM EST [facility] 56- MPV 10.2 6.6 - 11.1 fL 03/27/2024 10:39 AM EST [facility] 56- Blood Venous blood specimen / Unknown Venipuncture / Unknown 03/27/2024 10:28 AM EST 03/27/2024 10:28 AM EST Ashley Quezada DO LAB BLOOD ORDERABLES Fi nal Result [facility] [address]- [address] [place] [address] documented in this encounter Visit Diagnoses Diagnosis Elective replacement indicated for pacemaker- Primary Fitting and adjustment of cardiac pacemaker Syncope and collapse Atrioventricular block Atrioventricular block, unspecified Syncope and collapse Atrioventricular block Atrioventricular block, unspecified Elective replacement indicated for pacemaker Fitting and adjustment of cardiac pacemaker Syncope and collapse Atrioventricular block Atrioventricular block, unspecified Elective replacement indicated for pacemaker Fitting and adjustment of cardiac pacemaker documented in this encounter Advance Directives Documents on File Type Date Recorded 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 Advance Directives and Living Will 09/07/2023 Carolyne Cooper signed on 01/26/2019 Living Will and Health Care Power of Gate Tender * Full Code (Latest Code Status on [...] Name Relationship Healthcare Agent Relationship Communication Carolyne Ck Adult Child Health Care Agen t (per Health Care Power of Gate Tender document) Ginger Cooper Adult Child First Alternate Health Care Agent (per Health Care Power of Gate Tender document) Care Teams Favor Maker Relationship Specialty Start Date End Date Alek Vera DO [address] [place] [address] PCP - General Family Medicine 02/16/22 documented as of this encounter
--- OUTSIDE RECORDS SUMMARY | 2024-05-09 10:45 | External Medical Summary ---
Author Name Unknown Address Unknown Organization [facility] [place] [address] Laboratory Report Ordering Provider Test Date Status CAMILA NGUYEN 03/27/2024 10:28:04 Final Observation Date Value Abnormality Reference (Units ) Status WBC, Total 03/27/2024 10:28:04 8.93 4.00-10.8 0 (K/uL) Final RBC 03/27/2024 10:28:04 4.43 4.50-5.25 (M/uL) Final Hemoglobin 03/27/2024 10:28:04 11.9 Below low normal 14 .0-16.8 (g/dL) Final HCT 03/27/2024 10:28:04 38.7 Below low normal 40. 0-48.4 (%) Final MCV 03/27/2024 10:28:04 87.4 82.0-99.5 (fL) Final MCH 03/27/2024 10:28:04 26.9 27.0-34.0 (pg) Final MCHC 03/27/2024 10:28:04 30.7 32.0-36.0 (g/dL) Final RDW 03/27/2024 10:28:04 15.2 11.5-15.5 (%) Final Platelets 03/27/2024 10:28:04 212 140-400 (K /uL) Final MPV 03/27/2024 10:28:04 10.2 6.6-11.1 ( fL) Final Performing Location [facility] [place] [address]
--- OUTSIDE RECORDS SUMMARY | 2024-05-09 10:45 | External Medical Summary | Summary of Care ---
Author Name Unknown Organization [facility] Address [address] [place] [address] Phone [phone] Care Team Providers Care Health And Wellness Advisor Name Role Phone Alek Vera Primary Care Provider [phone] Reason for Visit * Auth/Cert Specialty Diagnoses / Procedures Referred By Akil osborne Referred To Contact Diagnoses Syncope and collapse Atrioventricular block Elective replacement indicated for pacemaker Syncope and collapse [R55] Atrioventricular block [I44.30] Elective replacement indicated for pacemaker [Z45.018] Procedures INSERT/REPLACE PULSE GEN ONLY, DOUBLE NEW DDD PACEMAKER GENERATOR ONLY [facility]ada [facility] [address] [facility] [place] [address] Phone: tel: fax: OR [facility], Operating Room, [facility] - 4th Floor [address] [facility] [place] [address] Phone: tel: Referral ID Status Reason Start Date Expiration Date Visits Re quested Visits Authorized [id number] Encounter Details Date Type Department Care Team (Latest Contact Info) Description 04/03/2024 7:25 AM EST - 04/03/2024 10:30 AM EST Hospital Encounter OR [facility], Operating Room, [facility] - 4th Floor [address] [facility] [address] Ashley Quezada DO [address] [facility] [place] [id number] Discharge Disposition: Home - Self Care Allergies Active Allergy Reactions Criticality Noted Date Comments Cefaclor 11/19/1998 ITCHING Oxycodone 03/24/2012 "Makes me goofy" documented as of this encounter (statuses as of 04/03/2024) Medications TERAZOSIN HCL 10 MG PO CAPS Take 1 Capsule by mouth in the morning. 0 2008 Active ASPIRIN 81 MG PO CHEWIndications: Diaphragmatic hernia,Lipoma of unspecified site,Benign paroxysmal vertigo,Pulsatil e tinnitus,Polyneu ropathy in diabetes(357.2), ADVANCE DIRECTIVE INFORMATION,DM type 2, goal A1c below 7,Dyslipidemia, goal LDL below 100,Chronic venous hypertension with inflammation,HTN , goal below 140/80,Impacted cerumen,Otitis externa, acute,Otitis externa, chronic,Hearing loss,Snoring disorder,Esophag eal reflux,Chronic rhinitis,HTN, goal to be determined,Acute myocardial infarction, subendocardial infarction, episode of care unspecified,INTE RFACED RESULT 1 Tab Oral Daily 30 Tab 3 2012 Active levothyroxine (LEVOXYL) 100 MCG Tablet Take 112 mcg by mouth daily first thing in the morning. Active Calcitriol 0.5 MCG Oral Capsule (Rocaltrol) Take 1 Capsule by mouth in the morning. 2020 Active Atorvastatin Calcium 80 MG Oral Tablet (Lipitor)Indicat ions:Dyslipidemi a, goal LDL below 100,HTN, goal to be determined,Coron keke artery disease involving [place] coronary artery of [place] heart without angina pectoris Take 1 Tablet by mouth every afternoon. 90 Tablet 3 2021 Active Additional Information Patient taking differently:80 mg OralQHS, Reported on 04/03/2024 Potassium Chloride Rhona ER 20 MEQ Oral Tablet Extended Release (Klor-Con M20)Indications: Coronary artery disease involving [place] coronary artery of [place] heart without angina pectoris,HTN, goal below 140/80 Take 1 Tablet by mouth daily. 90 Tablet 3 2021 Active Additional Information Patient taking differently: 10 mEqOral Daily(AM), Reported on 04/03/2024 Jardiance 25 MG Oral Tablet Take 1 Tablet by mouth in the morning. 2021 Active Magnesium Oxide 400 MG Oral Tablet daily. 2021 Active Sertraline HCl 50 MG Oral Tablet Take 1.5 Tablets by mouth in the morning. Active Acetaminophen 325 MG Oral Tablet (Tylenol) Take 2 Tablets by mouth 3 times a day as needed. Active Gabapentin 300 MG Oral Capsule (Neurontin) Take 1 Capsule by mouth at bedtime. 2022 Active Furosemide 20 MG Oral Tablet (Lasix)Indicatio ns:Coronary artery disease involving [place] coronary artery of [place] heart without angina pectoris,HTN, goal below 140/80 Take 1 Tablet by mouth in the morning. 90 Tablet 3 2022 Active Additional Information Patient taking differently: 10 mgOral Daily(AM), Reported on 04/03/2024 Nitroglycerin 0.4 MG Sublingual Tablet Sublingual (Nitrostat)Indic ations:Coronary artery disease involving [place] heart PLACE 1 TABLET UNDER THE TONGUE AND ALLOW TO DISSOLVE EVERY 5 MINUTES NEEDED FOR CHEST PAIN. (MAXIMUM 3 TABLETS. IF CHEST PAIN IS NOT RELIEVED, CALL 911) 25 Tablet 3 2022 Active Additional Information Patient not taking.Reported on 04/03/2024 Pantoprazole Sodium 40 MG Oral Tablet Delayed Release (Protonix)Indica tions:Dyslipidem ia, goal LDL below 100,HTN, goal to be determined,HTN, goal below 140/80,Diaphragm atic hernia,Type 2 diabetes mellitus with hemoglobin A1c goal of less than 7.0% (HCC),Chronic venous hypertension with inflammation,Imp acted cerumen,Otitis externa, acute,Otitis externa, chronic,Hearing loss,Esophageal reflux,Chronic rhinitis,Unstabl e angina (HCC) Take 1 Tablet by mouth in the morning. 90 Tablet 3 2022 Active Mounjaro 5 MG/0.5ML Subcutaneous Solution Pen-injector Inject 5 mg under the skin once a week. 2023 Active Tresiba FlexTouch 200 UNIT/ML Subcutaneous Solution Pen-injector Inject 30 Units under the skin in the morning. 5 Each 2023 Active Additional Information Patient taking differently: 40 UnitsSubcutaneous Daily(AM), Reported on 04/03/2024 NovoLOG FlexPen 100 UNIT/ML Subcutaneous Solution Pen-injector Consult sliding scale with meals and before bedtime 1 Each 2023 Active Metoprolol Succinate ER 50 MG Oral Tablet Extended Release 24 Hour (toPROL XL) Take 1 Tablet by mouth in the morning and 1 Tablet before bedtime. 60 Tablet 2023 Active Polyethylene Glycol 3350 17 GM Oral Packet (Miralax) Take 1 Packet by mouth in the morning. Hold for loose stool. 14 Each 2023 Active Losartan Potassium-HCTZ 100-25 MG Oral Tablet (Hyzaar)Indicati ons:HTN, goal below 140/80 Take 1 Tablet by mouth in the morning. 90 Tablet 3 2023 Active Additional Information Patient not taking.Reported on [...] 8 hours as needed for Nausea. Active Apixaban 5 MG Oral Tablet (Eliquis) Take 2 Tablets by mouth 2 times a day for 6 days, THEN 1 Tablet 2 times a day for 24 days. 72 Tablet 04/03 Discontinued documented as of this encounter (statuses as of 04/03/2024) Active Problems Problem Noted Date Diagnosed Date [...] collapse 10/31/2014 Coronary artery disease invo lving [place] coronary artery without angina pectoris 10/31/2014 Hematuria, [...] as of this encounter (statuses as of 04/03/2024) Resolved Problems Problem Noted Date Diagnosed Date [...] Chest pain 09/28/2012 02/06/2013 [employer] Other*[id number] 09/28/2012 05/12/2016 Overview (09/28/2012): Study Title: Genomic Markers for Patients with Cardiovascular Disease Project # [id number] Electrical Equipment Tester: Jody Grijalva MD [phone] Impacted cerumen 03/01/2012 01/30/2015 Otitis externa, acute [...] as of this encounter (statuses as of 04/03/2024) Immunizations Name Administration Dates Next Due COVID-19 mRNA, LNP-s, No Pre serve, 2-Dose Series (Moderna) 07/20/2020,06/22/2020 Pneumococcal Conjugate Vacci ne, 20-valent ([id number]) 09/12/2023,09/11/2023(Deferred: Patient Refused - " I want to wait till later in the year") Seasonal Influenza Vac., MDV , IM, 0.5 mL (Fluzone) 02/04/2012 Seasonal Influenza, Quadrivalent, ID 01/25/2020 TDAP (age 10 and older)(Boostrix) 10/27/2017 documented as of this encounter Social History Tobacco Use Types Packs/Day Years Used Date Smoking Tobacco: Former Cigarettes 1 1 6 - 1966 Pipe Smokeless Tobacco: Former Chew Quit: 09/03/2002 Alcohol Use Standard Drinks/Week Comments Not Currently 1 (1 standard drink = 0.6 oz pur e alcohol) occasionally Sex and Gender Information Value Date Recorded Sex Assigned at Not on file Legal Sex Male 5:57 AM EST Gender Identity Not on file Sexual Orientation Not on file documented as of this encounter Last Filed Vital Signs Vital Sign Reading Time Taken Comments Blood Pressure 114/67 04/03/2024 10:18 AM EST Pulse 60 04/03/2024 10:18 AM EST pace d Temperature 36 C (96.8 F) 04/03/2024 10:18 AM EST Respiratory Rate 16 04/03/2024 10:18 AM EST Oxygen Saturation 96% 04/03/2024 10:18 AM EST Inhaled Oxygen Concentration - - Weight 104.3 kg (230 lb) 04/03/2024 7:38 AM EST Height 175.3 cm (5' 9") 04/03/2024 7:38 AM EST Body Mass Index 33.97 04/03/2024 7:38 AM EST documented in this encounter Functional Status * Are you [...] Kameron George RN documented in this encounter Discharge Instructions * Discharge Instr - AVS* Ashley Quezada, - 04/03/2024 9:44 AM EST DISCHARGE INSTRUCTIONS [address] [address] Patient Name: Gerry Gambino Discharge Date: 04/03/[address] Ashley Quezada D.O. of the Department of Cardiology at [phone] during business hours for any questions or test results. For after- hours emergencies call 911. Brief summary of your inpatient care: Admitted for elective pacemaker generator change due to ppm at [facility]; underwent procedure no complications. Monitored post op and discharged home Your primary diagnosis at discharge was PPM at [facility] Your doctors during this hospitalization included: Dr. Quezada of the Department of Cardiology Operations & Procedures: dual chamber rate responsive permanent pacemaker generator change Complications: none significant Advance Directive Documented: Advance Directive Does the Patient have an Advance Directive? No Allergies: Cefaclor and Oxycodone Diet: Previous diet Activity: Keep dressing on and dry until your wound check next week. Driving: You may resume driving 04/04/2024 . Date you may return to work or school: N/A Return appointments: These follow-up appointments have been scheduled or are in the process of being scheduled. If you have questions about your appointments, please call . When asked to state the name of the physician, please say "Hospital Discharge". Future Appointments Appt Date/Time Provider Department 04/13/2024 1:00 PM Angeli Hart Cardiology, [place] 03/12/2025 10:00 AM Stacie Augustine CRNP Cardiology, [place] Medications: no change in medications For routine questions, your [facility] Cardiology Team prefers the use of Social 2 Step. Social 2 Step is an online internet tool to help you meet your health care needs quickly by providing a secure, confidential way to view your health records and communicate with your [facility] Cardiology Team. To sign up for Social 2 Step go to www.[employer], "Click" [place] Now on the right side of the screen and complete the user registration information. The information below provides you with the instructions and the list of medications you need to betaking following discharge from the hospital. If you have any questions, please ask before leaving.Please carry this letter with you when you see your doctor in the clinic. If you have questions, you can reach us at the numbers above. If you feel suicidal or homicidal, please call the crisis hotline at [phone] ([phone]). Acknowledgement: I have had these instructions explained to me, was given a copy and had a chance to ask questions. Patient Signature Date & Time: Nurse Signature Date & Time: If the patient is unable to sign: Responsible Adult Date & Time: Relationship to Patient * PLEASE TAKE THIS FORM TO YOUR NEXT VISIT WITH YOUR PRIMARY CARE PHYSICIAN. documented in this encounter Progress Notes * AustinAshley perdomo - 04/03/2024 9:41 AM EST [address] [address] OUTPATIENT SURGERY DISCHARGE SUMMARY NOTE Name: Gerry Gambino Location: [facility] Date: 04/03/2024 Time: 9:41 AM Surgery Date: 04/03/2024 Procedure: dual chamber rate responsive permanent pacemaker generator change Surgeon: Surgeon(s): Ashley Quezada DO Discharge Diagnosis: PPM at [facility] After examination of this patient, I have determined she is ready for discharge to home when the patient meets criteria. Discharge instructions were given to the patient. documented in this encounter H&P Notes * DamienAshley - 04/02/2024 9:31 AM EST GENERAL HISTORY & PHYSICAL EXAMINATION - Cardiology [address] [address] Name: Gerry Gambino Location: Room/bed info not found Date: 04/03/2024 Time: 8:35 AM PRESENTING PROBLEM: ppm at [facility] HPI: Pt presents today for pacemaker generator change Pt denies any chest pain, SOB/CROOK, palpitations, lightheadedness, dizziness, near syncopal episodes, lower extremity edema,orthopnea, no change in activity level or unexplained weight changes. PAST MEDICAL HISTORY: Past Medical History: Diagnosis Date CHF (congestive heart failure) (HCC) Diaphragmatic hernia DM type 2, goal A1c below 7 Dyslipidemia, goal to be determined HTN, goal to be determined Personal history of colonic polyps PAST SURGICAL HISTORY: Past Surgical History: Procedure Laterality Date COLONOSCOPY, DIAGNOSTIC (RECTUM) N/A 10/16/2014 adenomatous polyps. repeat in 3 yrs/COLONOSCOPY FLEXIBLE PROXIMAL DIAGNOSTIC performed by Art Jessica DO at OR [facility] COLONOSCOPY, DIAGNOSTIC (RECTUM) N/A 12/08/2017 adenomatous and tubulovillous adenomas/recall 1 year/COLONOSCOPY FLEXIBLE PROXIMAL DIAGNOSTIC performed by Sergey Neely MD at OR [facility] COLONOSCOPY, DIAGNOSTIC (RECTUM) N/A 03/16/2019 poor prep/one small polyp transverse colon, not retrieved/recall 3 years/COLONOSCOPY FLEXIBLE PROXIMAL DIAGNOSTIC performed by Lowell Cohen MD at OR [facility] CORONARY ANGIOGRAPHY CATH PLACEMENT 09/28/2012 CORONARY ANGIOGRAPHY CATH PLACEMENT performed by Gerry Abdalla MD at [facility] EGD, W/ENDOSCOPIC US 11/17/2011 UPPER GI ENDOSCOPY ENDOSCOPIC ULTRASOUND performed by Artie Brandon MD at [facility] INJECT DX/THER SUBSTANCE INTERLAMINAR LUMBAR/SACRAL W IMAGE GUIDE 10/08/2021 INJECTION SPINE LUMBAR OR SACRAL performed by Tutu Dunbar DO at OR [facility] INSERT/REPLACE PACEMAKER,ATRIAL/VENTRICULAR Right 12/27/2014 NEW DDD PACEMAKER IMPLANT performed by Ashley Quezada DO at OR [facility] LAPAROSCOPY; CHOLECYSTECTOMY 2011 Cholecystectomy, Laproscopic SACROILIAC JOINT INJECT W/GUIDANCE 08/20/2021 INJECTION SACROILIAC JOINT performed by Tutu Dunabr DO at OR [facility] FAMILY HISTORY: Family History Problem Relation Name Age of Onset Diabetes Father Lung Disorder Father Gastro-intestinal disorder Brother hosp diverticulitis 10/04 Diabetes Grandmother (Maternal) Cancer Grandfather (Paternal) lung ca Cancer Grandfather (Maternal) stomach ca SOCIAL HISTORY: Social History Tobacco Use Smoking status: Former Current packs/day: 0.00 Average packs/day: 1 pack/day for 1 year (1.0 ttl pk-yrs) Types: Cigarettes, Pipe Start date: 1965 Quit date: 1966 Years since quittin.0 Smokeless tobacco: Former Types: Chew Quit date: 09/03/2002 Vaping Use Vaping status: Never Used Substance Use Topics Alcohol use: Not Currently Alcohol/week: 1.0 standard drink of alcohol Types: 1 12 oz of beer per week Comment: occasionally Drug use: No CURRENT HOSPITAL MEDICATIONS: Note that completed medications (per MAR) continue to display for 24 hours. Ordered medications to be given in the future also display. No current facility-administered medications for this encounter. Current Outpatient Medications Medication amLODIPine Besylate 5 MG Oral Tablet (Norvasc) Apixaban 5 MG Oral Tablet (Eliquis) Insulin Lispro (1 Unit Dial) 100 UNIT/ML Subcutaneous Solution Pen-injector (Admelog SoloStar) Losartan Potassium 50 MG Oral Tablet (Cozaar) Ondansetron HCl 4 MG Oral Tablet Senna 8.6 MG Oral Capsule Metoprolol Succinate ER 50 MG Oral Tablet Extended Release 24 Hour (toPROL XL) Polyethylene Glycol 3350 17 GM Oral Packet (Miralax) Tresiba FlexTouch 200 UNIT/ML Subcutaneous Solution Pen-injector Mounjaro 5 MG/0.5ML Subcutaneous Solution Pen-injector Furosemide 20 MG Oral Tablet (Lasix) Nitroglycerin 0.4 MG Sublingual Tablet Sublingual (Nitrostat) Pantoprazole Sodium 40 MG Oral Tablet Delayed Release (Protonix) Gabapentin 300 MG Oral Capsule (Neurontin) Sertraline HCl 50 MG Oral Tablet Jardiance 25 MG Oral Tablet Magnesium Oxide 400 MG Oral Tablet Atorvastatin Calcium 80 MG Oral Tablet (Lipitor) Potassium Chloride Rhona ER 20 MEQ Oral Tablet Extended Release (Klor-Con M20) Calcitriol 0.5 MCG Oral Capsule (Rocaltrol) levothyroxine (LEVOXYL) 100 MCG Tablet ASPIRIN 81 MG PO CHEW TERAZOSIN HCL 10 MG PO CAPS Losartan Potassium-HCTZ 100-25 MG Oral Tablet (Hyzaar) NovoLOG FlexPen 100 UNIT/ML Subcutaneous Solution Pen-injector Acetaminophen 325 MG Oral Tablet (Tylenol) ALLERGIES: Cefaclor and Oxycodone ROS: Review of Systems Constitutional: Negative for activity change, chills, fatigue, fever and unexpected weight change. HENT: Negative for postnasal drip, rhinorrhea and sinus pressure. Eyes: Negative for visual disturbance. Respiratory: Negative for shortness of breath. Cardiovascular: Negative for chest pain, palpitations and leg swelling. Gastrointestinal: Negative for blood in stool, constipation, diarrhea, nausea and vomiting. Genitourinary: Negative for dysuria and hematuria. Musculoskeletal: Negative for gait problem. Skin: Negative for rash. Neurological: Negative for dizziness, syncope and light-headedness. PHYSICAL EXAMINATION: Most Recent Vital Signs: BP: / Pulse: Resp: Temp: Temp Summary: No data recorded SpO2: O2 flow rate: Supplemental O2 Delivery: Physical Exam Vitals and nursing note reviewed. Constitutional: General: He is awake. Appearance: Normal appearance. He is well-developed. HENT: Head: Normocephalic and atraumatic. Eyes: General: No scleral icterus. Extraocular Movements: Extraocular movements intact. Neck: Vascular: Normal carotid pulses. No carotid bruit or JVD. Cardiovascular: Rate and Rhythm: Normal rate and regular rhythm. Pulses: Carotid pulses are 2+ on the right side and 2+ on the left side. Radial pulses are 2+ on the right side and 2+ on the left side. Posterior tibial pulses are 2+ on the right side and 2+ on the left side. Heart sounds: S1 normal and S2 normal. No murmur heard. Comments: No LE edema b/l Pulmonary: Effort: Pulmonary effort is normal. Breath sounds: Normal breath sounds. No decreased breath sounds, wheezing, rhonchi or rales. Chest: Comments: Left pectoral region; ppm site no evidence of threatened erosion Musculoskeletal: Cervical back: Neck supple. Skin: General: Skin is warm and dry. Neurological: General: No focal deficit present. Mental Status: He is alert and oriented to person, place, and time. Psychiatric: Attention and Perception: Attention normal. Mood and Affect: Mood normal. Speech: Speech normal. Behavior: Behavior is cooperative. 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 The right ventricular cavity is mildly dilated. The right ventricular systolic function is normal Mild mitral regurgitation is present. Mild tricuspid regurgitation is present. 11/17/2021: The left ventricular endocardium is adequately assessed using ultrasonic contrast. The qualitative LV ejection fraction is 55-59% (normal). The left ventricular cavity size is normal. The LV wall thickness is mildly increased (concentric). There is no left ventricular mural thrombus. The septal motion is abnormal consistent with intrventricular conduction delay. The left ventricular wall motion is normal. The right ventricular cavity is moderately dilated with normal systolic function. Cardiac Catheterization: 09/28/2012: Single vessel coronary disease with the likely culprit being the 70% proximal LAD stenosis which was stented with a 3.25 mm SHRUTHI. Extrusion of plaque material through the proximla end of the stent required stenting, this timie with a 4 mm stent overlapping the proximal end of the original stent. We then post dilated the original stent. This led to extrusion of material through the distal end of the original stent, requiring a 3rd SHRUTHI covering the distal part of the original stent. We then post dilated this with a 4 mm balloon. The final result was perfect The procedure was compllcated by transient slow flow after the 2nd stent was placed LABS: Labs reviewed as indicated below: Component Latest Ref Rng 03/27/2024 WBC 4.00 - 10.80 K/uL 8.93 RBC 4.50 - 5.25 M/uL 4.43 HGB 14.0 - 16.8 g/dL 11.9 (L) HCT 40.0 - 48.4 % 38.7 (L) MCV 82.0 - 99.5 fL 87.4 MCH 27.0 - 34.0 pg 26.9 MCHC 32.0 - 36.0 g/dL 30.7 RDW 11.5 - 15.5 % 15.2 PLT 140 - 400 K/uL 212 MPV 6.6 - 11.1 fL 10.2 BUN 6 - 20 mg/dL 23 (H) CREATININE 0.6 - 1.2 mg/dL 2.2 (H) EGFR >=60 mL/min 30 (L) SODIUM 135 - 146 mmol/L 142 POTASSIUM 3.5 - 5.1 mmol/L 4.2 CHLORIDE 98 - 107 mmol/L 106 CO2 22 - 32 mmol/L 23 ANION GAP 7 - 15 mmol/L 13 GLUCOSE 70 - 120 mg/dL 170 (H) CALCIUM 8.4 - 10.2 mg/dL 9.3 IMPRESSION: CHB s/p ppm 12/27/2014 CAD s/p PCI LAD 201\\3 HTN HLD CKD Stage III DM H/o PE and DVT Hypothyroidism GERD BPH PLAN: -recommend dual chamber pacemaker generator change -no need fo upgrade as pt is tolerating the apical RV pacing without having any CHF and EF is preserved -Discussed procedure and risks which include but are not limited to arrhythmias, strokes, heart attacks, , bleeding and infection with the patient; he expressed an understanding and wish to proceed. -Consents signed documented in this encounter Nursing Notes * Marly Francis RN - 04/03/2024 9:26 AM EST Pacemaker removed, intact, discarded per Dr Asencio * Jimena Donald RN - 03/28/2024 12:47 PM EST Patient identified by: name/birthdate Person taught: LPN. [facility] case procedure confirmed with patient/parent/guardian - no consent signed. Laterality confirmed as Right Surgery date at time of Pre-Surgery Center Encounter: 04/03/2024. What procedure is patient having? NEW DDD PACEMAKER GENERATOR ONLY ([id number]) In an emergency, is patient willing to accept blood products or blood transfusion? Unknown. Do you need to place a blood bank order? No Anesthesia consent pool notified? N/A Anesthesia evaluation requested per case documentation? No Preop Evaluation Requested? No PATIENT EDUCATION SCREENING Person taught: Donna. Motivation Level: Asks Questions and Eager to Learn Language Barrier: No Physical Barrier: N/A METHOD: Lecture-telephone interview Patient Preferred Learning Methods: Lecture-Telephone interview Health History interview completed, questions answered, and the following patient instructions provided via telephone interview: Preoperative bathing instructions General preoperative instructions Medication instructions NPO instructions Donna calling Cardiology to get medication instructions. -STOP taking your Jardiance 3 days prior to surgery. Please continue to carefully monitor your blood sugar levels at home after discontinuation of this agent and contact the prescriber to determine: 1) how to manage high blood sugar levels (hyperglycemia) and 2) if you need any bridging medication. You are prescribed Mounjaro, a medication classified as a GLP-1 Agonist. This medication may be associated with delayed gastric emptying (delayed emptying of your stomach content into your intestine). Due to the delay in emptying your stomach you may experience symptoms such as abdominal discomfort/bloating, nausea and/or vomiting. These symptoms can increase your risks of potential complicationsassociated with anesthesia. You will have the opportunity to discuss your symptoms the day of surgery when you will meet your anesthesia team and a plan of care is made. Please follow these recommendations based on whether you are experiencing symptoms or not to reducethe risk of potential complications associated with anesthesia: -You are taking a DAILY-dosed GLP-1 agonist, you will need to HOLD your dose the morning of your procedure AND follow a CLEAR LIQUID diet for 24 hours before your procedure. -You are taking a WEEKLY-dosed GLP-1 agonist HOLD your dose a minimum of 3 days prior to your procedure AND follow a CLEAR LIQUID diet for 24 hours before your procedure. INSTRUCTIONS FOR CLEAR LIQUID DIET 24 HOURS BEFORE YOUR PROCEDURE: -The day before your procedure you may eat a lite breakfast (e.g. toast, cereal), it is recommendedto eat your breakfast no later than 8:00 AM -The day before your procedure after eating breakfast, you MUST follow a clear liquid diet. A clearliquid diet includes water, soda, clear juices (without pulp), black coffee or tea (without milk/cream), jello (without anything added to it) and broth (without anything added to it). -The day of your procedure you may have clear liquids until 3 hours prior to your procedure's arrival time. OUTCOME: State / Describe / Explain and Needs Reinforcement * Jimena Donald RN - 03/21/2024 9:25 AM EST Left message on other [facility] phone for return call @ [phone] [facility] prior to surgery date or to leave a number where they can be reached . Instructed clinic openhours are M-F 8:00a- 4:00p. documented in this encounter OR Notes * OR Surgeon - Ashley Quezada DO - 04/03/2024 9:46 AM EST PERATIVE RECORD [address] [address] Patient: Gerry Gambino MR #[id number] : 1945 SERVICE: CARDIAC ELECTROPHYSIOLOGY/CARDIOVASCULAR MEDICINE DATE: 04/03/2024 PRE-OP DIAGNOSIS: ppm at JUNIOR and SSS POST-OP DIAGNOSIS: Same. SURGEON: Ashley Quezada DO. ASSISTANTS: None. ANESTHESIA: Monitored anesthetic care administered via Anesthesiology. Please refer to their notes for complete details. OPERATION: Dual-chamber rate responsive permanent pacemaker generator change FINDINGS: See below. ESTIMATED BLOOD LOSS: 5 mL. DRAINS: None. FLUIDS: IV fluids: 100 mL. URINE OUTPUT: Not applicable. SPECIMEN: None. COMPLICATIONS: None. CONDITION: Stable. ANTIBIOTICS: clindamycin INDICATIONS AND HISTORY: 78y/o M PMH Device at JUNIOR, CHB s/p ppm 12/27/2014, CAD s/p PCI LAD 2012, HTN, HLD, CKD Stage III, DM, H/o PE and DVT on eliquis, Hypothyroidism, GERD, BPH. Patient's device has reached [facility] and he was recommended a generator change. CONSENT: Consent was obtained prior to the patient going into the hybrid OR room. Patient was informed of the risks, benefits, and alternatives to the procedure. Risks include, but were not limited to, sudden cardiac , cardiac arrhythmias, cerebrovascular accident, myocardial infarction, injury to blood vessels, chamber of the heart, lung, bleeding, infection. Patient understood these risks and agreed to procedure as planned. Informed consent was obtained. DESCRIPTION OF OPERATION: The patient was brought into the OR room in a fasting state. The patient was connected to continuous cardiac monitoring. A time-out was performed to ensure patient identity,and procedure were correct. The patient was prepped and draped over the right infraclavicular spacein normal surgical standard fashion. Monitored anesthetic care was given throughout the procedure for patient's comfort level. Gila precautions were maintained throughout the procedure. 20 mL of 1% lidocaine, bupivacaine mixture were given in the prior surgical incision. Incision was made over the prior surgical incision. Blunt dissection was performed down to the pulse generator. The capsule was broken and the pulse generator was removed from the pocket. The capsule was disruptedinferiorly and caudally to allow for new blood flow. The leads were detached from the pulse generator and checked intraoperatively see below for results. Then the leads were attached to the new pulse generator; making sure the pins were in appropriate position past the set screws and the set screws were tightened. Then, the pocket was flushed with copious amounts of vancomycin saline wash, inspected for hemostasis. Then, the pacemaker was placed the pocket making sure the lead was lying flat beneath the device. The incision was then closed in a layered fashion using 2-0 Vicryl interrupted suture, followed by3-0 Vicryl interrupted suture, followed by 4-0 Monocryl running stitch. Primaseal dressing was placed. EQUIPMENT: 1. Pulse generator is a Nubimetrics DR model: PM 2272, serial number [id number] 2. RA Lead: Medtronic 5076/45cm; SN: [id number]; implanted 12/27/2014 3. RV Lead: Medtronic 4092/52cm; SN: [id number] implanted 12/27/2014 4. Explanted pulse generator Medtronic A2DR01; SN: [id number] implanted 12/27/2014 INTRAPROCEDURAL FINDINGS: RA Lead: P waves 1.8mV; impedence 382 ohms; threshold 0.7V @ 0.4ms RV Lead: R waves none pt is paced; impedence 387 ohms, threshold 1V @ 0.4ms FINAL MEASUREMENTS THROUGH THE DEVICE: RA Lead: P waves 2.4mV; impedence 380 ohms; threshold 1V @ 0.4ms 2 . RV lead: R-waves none pt Is paced, impedance 390 ohms, threshold 1.0 V at 0.4 msec. FINAL PARAMETERS: DDD-R, 60/120. RA Lead: amplitude 2V, pulse width 0.4ms; sensitivity 0.5mV; RV lead amplitude 1.25 V, pulse width 0.4 msec, sensitivity 2 mV. IMPRESSION: Successful dual-chamber rate responsive permanent pacemaker generator change due to CHBand ppm at JUNIOR. PLAN: Monitor patient postprocedure. Wound check the following week-keep dressing on & dry until then. Ashley Quezada DO documented in this encounter Plan of Treatment Upcoming Encounters Date Type Department Care Team (Late st Contact Info) Description 04/13/2024 1:00 PM EST Cardiac Studies [facility] [address] [phone] [facility] [address] [address] 03/12/2025 10:00 AM EST Office Visit [facility] [address] [address] [facility] [address] [facility] [place] [address] Scheduled Procedures Name Priority Associated Diagnoses Date/Ti me NEW DDD PACEMAKER GENERATOR ONLY Syncope and collapse Atrioventricular block Elective replacement indicated for pacemaker 04/03/2024 8:44 AM EST COLONOSCOPY FLEXIBLE PROXIMAL DIAGNOSTIC Recall [...] Additional history exists CKD PHOS USE SMARTSET 29722 09/09/2024 06/0 10/2023, 09/05/2023, 11/18/2021 GFR 09/25/2024 03/27/2024, 09/03, 09/13/2023, Additional history exists TSH 10/10/2024 10/11/2023, 09/03, 09/07/2023, Additional history exists CKD HGB USE SMARTSET 46664 03/27/202503/27, 09/20/2023, 09/13/2023, Additional history exists DTap/Tdap [...] this encounter Medical Devices Implanted Type Area Senior Reservoir Engineer Device Identifier Shelf Expiration Date Model / Serial / Lot Pacemaker Dr-Rf [id number] - [id number] - [id number] Implanted:Qty: 1 on 04/03/2024 by Ashley Quezada DO at OR [facility] Pacemaker Right: Chest [employer] 07/03/2025 [id number] / [id number] / Medtronic Implanted:Qty: 1 on 12/27/2014 by Ashley Quezada DO at OR [facility] Right: Chest MEDTRONIC : KENNEDY 11/26/2016 5076-52 / [id number] / [id number] Description:atrial lead Medtronic Ventricular Lead Implanted:Qty: 1 on 12/27/2014 by Ashley Quezada DO at OR [facility] Right: Chest MEDTRONIC : KENNEDY 11/01/2016 5076-58 / [id number] / Explanted Type Area Senior Reservoir Engineer Device Identifier Shelf Expiration Date Model / Serial / Lot Medtronic Pacer Implanted:Qty: 1 on 12/27/2014 by Ashley Quezada DO at OR [facility] Explanted:Qty: 1 on 04/03/2024 by Ashley Quezada DO at OR [facility] Right: Chest Medtrol 05/02/2016 A2DR01 / [id number] / documented as of this encounter Procedures Procedure Name Priority Date/Time Associated Diagnosis Comments GLUCOSE METER, POINT OF CARE [facility] 04/03/2024 9:54 AM EST GLUCOSE METER, POINT OF CARE [facility] 04/03/2024 8:10 AM EST documented in this encounter Results * GLUCOSE METER, POINT OF CARE (04/03/2024 9:54 AM EST) GLUCOSE - POCT 93 70 - 120 mg/dL 04/03/2024 9:56 AM EST [facility] Blood Whole blood specimen / Unknown 04/03/2024 9:54 AM EST 04/03/2024 9:56 AM EST Ashley Quezada DO LAB POINT OF CA RE TEST DOCKED DEVICE UNSOLICITED RESULTS Final Result Performing Organization Address [facility] Co de Phone Number [facility] [address] [place] [phone] * GLUCOSE METER, POINT OF CARE (04/03/2024 8:10 AM EST) GLUCOSE - POCT 80 70 - 120 mg/dL 04/03/2024 8:16 AM EST [facility] Blood Whole blood specimen / Unknown 04/03/2024 8:10 AM EST 04/03/2024 8:16 AM EST Ashley Yooemelina DO LAB POINT OF CA RE TEST DOCKED DEVICE UNSOLICITED RESULTS Final Result Performing Organization Address [facility] Phone Number [facility] [address] [place] [phone] documented in this encounter Visit Diagnoses Diagnosis Elective replacement indicated for pacemaker- Primary Fitting and adjustment of cardiac pacemaker Coronary artery disease involving [place] coronary artery of [place] heart without angina pectoris HTN, goal below 140/80 Unspecified essential hypertension Syncope and collapse Atrioventricular block Atrioventricular block, unspecified documented in this encounter Administered Medications Inactive Administered Medications - up to 3 most recent administrations Medication Order MAR Action Action Date Dose Rate Site chlorhexidine gluconate cloth 2 % pad 1 Pad 1 Pad, External, ONCE, On Wed04/03/24 at 0915, For 1 dose, As applicable by procedure for patients 2 months and older unless contraindicated., Pre-Op Given 04/03/2024 9:15 AM EST 1 Pad Isolyte-S pH 7.4 infusion Intravenous, at 25 mL/hr, All Patients EXCEPT Dialysis patients Plasma-LYTE 148, isolyte-S, and isolyte-S pH 7.4 are considered equivalent - including for MAR barcode scanning., CONTINUOUS, Starting on Wed04/03/24 at 0915, Until Wed04/03/24 at 1458, Pre-Op Continue from Pre-Op 04/03/2024 8:46 AM EST 25 mL/hr New Bag 04/03/2024 8:33 AM EST 25 mL/hr 25 mL/hr Povidone-Iodine nasal swab 1 Swab 1 Swab, Nasal, ONCE, On Wed04/03/24 at 0915, For 1 dose, Administer as per software tester instructions unless contraindicated., Pre-Op Given 04/03/2024 9:15 AM EST 1 Swab documented in this encounter Active and Recently Administered Medications Times are shown in EST. Scheduled Medication Order 04/01/2024 04/02/2024 04/03/2024 chlorhexidine gluconate cloth 2 % pad 1 Pad (COMPLETED) 1 Pad, External, ONCE, On Wed04/03/24 at 0915, For 1 dose, As applicable by procedure for patients 2 months and older unless contraindicated., Pre-Op 0915 (Given - Provid er: Loretta Caraballo RN) clindamycin in D5W ivpb 600 mg (COMPLETED) 600 mg, IV Piggyback, PREOP, First dose on Wed04/03/24 at 0800, Last dose on Wed04/03/24 at 0800, For 1 dose, To be administered for antimicrobial prophylaxis in Electrophysiology Lab intra-procedure., Pre-Op 0850 (Given - Provid er: Jameson Noel CRNA) Povidone-Iodine nasal swab 1 Swab (COMPLETED) 1 Swab, Nasal, ONCE, On Wed04/03/24 at 0915, For 1 dose, Administer as per software tester instructions unless contraindicated., Pre-Op 0915 (Given - Provid er: Loretta Caraballo RN) Continuous Medication Order 04/01/2024 04/02/2024 04/03/2024 Isolyte-S pH 7.4 infusion Intravenous, at 25 mL/hr, All Patients EXCEPT Dialysis patients Plasma-LYTE 148, isolyte-S, and isolyte-S pH 7.4 are considered equivalent - including for MAR barcode scanning., CONTINUOUS, Starting on Wed04/03/24 at 0915, Until Wed04/03/24 at 1458, Pre-Op 0833 (New Bag - Prov ider: Loretta Caraballo RN)0846 (Continue from Pre-Op - Provider: Jameson Noel CRNA) PRN Medication Order 04/01/2024 04/02/2024 04/03/2024 bupivacaine 10 mL, lidocaine 1 % 10 mL inj (CANCELED) ONCE PRN INTRA PROCEDURE, Starting on Wed04/03/24 at 0919, Until Wed04/03/24 at 0944, Intra-Op 926 (Given - Provid er: Ashley Quezada, ) vancomycin 1 g in NSS 1,000 mL irrigation (CANCELED) ONCE PRN INTRA PROCEDURE, Starting on Wed04/03/24 at 0920, Until Wed04/03/24 at 0944, Intra-Op 926 (Given - Provid er: Ashley Quezada DO - Comment: NSS lot # [id number] 2026-01) documented in this encounter Advance Directives Documents on File Type Date Recorded Patient Pilot Submersible Expl anation Advance Directives and Living Will 09/07/2023 Carolyne Cooper signed on 01/26/2019 Living Will and Health Care Power of Casing Finisher And Stuffer * Full Code (Latest Code Status on [...] Agen t (per Health Care Power of Casing Finisher And Stuffer document) Ginger House Adult Child First Alternate Health Care Agent (per Health Care Power of Casing Finisher And Stuffer document) Care Teams Health And Wellness Advisor Relationship Specialty Start Date End Date Alek Vera DO [address] [place] [address] PCP - General Family Medicine 02/16/22 documented as of this encounter
--- OUTSIDE RECORDS SUMMARY | 2024-05-09 10:45 | External Medical Summary ---
Author Name Unknown Address Unknown Organization : Laboratory Report Ordering Provider Test Date Status CAMILA NGUYEN 04/03/2024 09:54:51 Final Observation Date Value Abnormality Reference (Units ) Status Glucose Point of Care 04/03/2024 09:54:51 93 70-120 (mg/dL) Final Performing Location
--- OUTSIDE RECORDS SUMMARY | 2024-05-09 10:46 | External Medical Summary | Summary of Care ---
Author Name Unknown Organization [facility] Address [address] [place] [address] Phone [phone] Care Team Providers Care Kelp Cutter Name Role Phone Alek Vera Primary Care Provider [phone] Reason for Visit * Reason Onset Date Comments Pacemaker Check 03/05/2024 SCHOOL INSPECTOR 02/18/24 Encounter Details Date Type Department Care Team (Late st Contact Info) Description 03/05/2024 Telephone Cardiology, [facility] [address] [place] [address] [facility] [address] [place] [address] Pacemaker Check (SCHOOL INSPECTOR 02/18/24) Allergies Active Allergy Reactions Criticality Noted Date Comments Cefaclor 11/19/1998 ITCHING Oxycodone 03/24/2012 "Makes me goofy" documented as of this encounter (statuses as of 03/08/2024) Medications TERAZOSIN HCL 10 MG PO CAPS [...] goal to be determined,Coronary artery disease involving [place] coronary artery of [place] heart without angina pectoris Take 1 Tablet by mouth every afternoon. 90 Tablet 3 2 Active Potassium Chloride Rhona ER 20 MEQ Oral Tablet Extended Release (Klor-Con M20)Indications:Cor onary artery disease involving [place] coronary artery of [place] heart without angina pectoris,HTN, goal below 140/80 [...] Oral Tablet (Lasix)Indications: Coronary artery disease involving [place] coronary artery of [place] heart without angina pectoris,HTN, goal below 140/80 Take 1 Tablet by mouth in the morning. 90 Tablet 3 3 Active Nitroglycerin 0.4 MG Sublingual Tablet Sublingual (Nitrostat)Indicati ons:Coronary artery disease involving afogn[place] heart PLACE 1 TABLET UNDER THE TONGUE [...] as of this encounter (statuses as of 03/08/2024) Active Problems Problem Noted Date Diagnosed Date [...] collapse 10/31/2014 Coronary artery disease invo lving [place] coronary artery without angina pectoris 10/31/2014 Hematuria, [...] as of this encounter (statuses as of 03/08/2024) Resolved Problems Problem Noted Date Diagnosed Date [...] Chest pain 09/28/2012 02/06/2013 [employer] Other*[id number] 09/28/2012 05/12/2016 Overview (09/28/2012): Study Title: Genomic Markers for Patients with Cardiovascular Disease Project # [id number] Parts Person: Jody Grijalva MD [phone] Impacted cerumen 03/01/2012 01/30/2015 Otitis externa, acute [...] as of this encounter (statuses as of 03/08/2024) Immunizations Name Administration Dates Next Due COVID-19 mRNA, LNP-s, No Pre serve, 2-Dose Series (Moderna) 07/20/2020,06/22/2020 Diptheria/Tetanus (Adult) 02/08/1995 PPD 11/19/1998 Pneumococcal Conjugate Vacci ne, 20-valent ([id number]) 09/12/2023,09/11/2023(Deferred: Patient Refused - " I want [...] documented in this encounter Miscellaneous Notes * Addendum Note - Karen Mcgovern NRCMA [...] scheduled on 04/03/2024 at 8:30 am at [facility]. LMOM for Alicia to call back to confirm date, time and instructions (wash p/u). DAVID Brady * Telephone Encounter - Karen Mcgovern NRCMA - 03/08/2024 10:43 AM EST Spoke with Alicia to scheduled pt for replacement. Pt was offered 03/16 and that date does not work for them. Pt/Alicia is ask if this can be scheduled for 04/03/24 at [facility]. Will discuss with provider andmake pt aware. [...] MDT Advisa PPM shows that he met SCHOOL INSPECTOR on 02/18/24. Pt had an EP appt on 02/17/24 to discuss nearing SCHOOL INSPECTOR. Looks like procedure was discuss with some instructions in chart. documented in this encounter Plan of Treatment Upcoming Encounters Date Type Department Care Team (Late st Contact Info) Description 04/03/2024 Hospital Encounter OR [facility], Operating Room, [facility] - 4th Floor [address] [phone] Ashley Quezada, [address] [address] 04/13/2024 1:00 PM EST Cardiac Studies [facility] [address] [address] [facility] [address] [address] 03/12/2025 10:00 AM EST Office [facility] [address] [address] Stacie Augustine CRNP [address] [address] Scheduled Orders Name Type Priority Associated Diagnoses [...] Atrioventricular block Elective replacement indicated for pacemaker COLONOSCOPY FLEXIBLE PROXIMA L DIAGNOSTIC Recall History [...] Additional history exists CKD PHOS USE SMARTSET 42545 09/09/2024 06/0 10/2023, 09/05/2023, 11/18/2021 CKD HGB USE SMARTSET 86914 09/19/202409/19, 09/13/2023, 09/12/2023, Additional history exists TSH [...] this encounter Medical Devices Implanted Type Area Event Technician Device Identifier Shelf Expiration Date Model / Serial / Lot Medtronic Implanted:Qty: 1 on 12/27/2014 by Ashley Quezada DO at OR [facility] Right: Chest MEDTRON[employer] : KENNEDY 11/26/2016 5076-52 / [id number] / 5076-52CM Description:atrial lead Medtronic Ventricular Lead Implanted:Qty: 1 on 12/27/2014 by Ashley Quezada DO at OR [facility] Right: Chest [employer] : KENNEDY 11/01/2016 5076-58 / [id number] / Medtronic Pacer Implanted:Qty: 1 on 12/27/2014 by Ashley Quezada DO at OR [facility] Right: Chest Medtrol 05/02/2016 A2DR01 / [id number] / documented as of this encounter Visit Diagnoses Diagnosis Syncope and collapse- Primary Atrioventricular block Atrioventricular block, unspecified Elective replacement indicated for pacemaker Fitting and adjustment of cardiac pacemaker Elective replacement indicated for pacemaker- Primary Fitting and adjustment of cardiac pacemaker Syncope and collapse Atrioventricular block Atrioventricular block, unspecified documented in this encounter Advance Directives Documents on File Type Date Recorded Patient Glory Hole Tender Expl anation Advance Directives and Living Will 09/07/2023 Carolyne Cooper signed on 01/26/2019 Living Will and Health Care Power of Advertising Layout Worker * Full Code (Latest Code Status on [...] Agen t (per Health Care Power of Advertising Layout Worker document) Ginger Cooper Adult Child First Alternate Health Care Agent (per Health Care Power of Advertising Layout Worker document) Care Teams Kelp Cutter Relationship Specialty Start Date End Date Alek Vera DO [address] [place] [id number] PCP - General Family Medicine 02/16/22 documented as of this encounter
--- OUTSIDE RECORDS SUMMARY | 2024-05-09 10:46 | External Medical Summary | Summary of Care ---
Author Name Unknown Organization [facility] Address [address] [place] [address] Phone [phone] Care Team Providers Care Tile Machine Operator Name Role Phone Alek Vera Primary Care Provider [phone] Reason for Visit * Reason Onset Date Comments Pacemaker Check 03/05/2024 NETWORK DESKTOP SUPPORT SPECIALIST 02/18/24 Encounter Details Date Type Department Care Team (Late st Contact Info) Description 03/05/2024 Telephone Cardiology, [place] [address] [place] [address] [place] [address] [place] [address] Pacemaker Check (NETWORK DESKTOP SUPPORT SPECIALIST 02/18/24) Allergies Active Allergy Reactions Criticality Noted [...] goal to be determined,Coronary artery disease involving [place] coronary artery of [place] heart without angina pectoris Take 1 Tablet by mouth every afternoon. 90 Tablet 3 2 Active Potassium Chloride Rhona ER 20 MEQ Oral Tablet Extended Release (Klor-Con M20)Indications:Cor onary artery disease involving [place] coronary artery of [place] heart without angina pectoris,HTN, goal below 140/80 [...] Oral Tablet (Lasix)Indications: Coronary artery disease involving [place] coronary artery of [place] heart without angina pectoris,HTN, goal below 140/80 Take 1 Tablet by mouth in the morning. 90 Tablet 3 3 Active Nitroglycerin 0.4 MG Sublingual Tablet Sublingual (Nitrostat)Indicati ons:Coronary artery disease involving [place] heart PLACE 1 TABLET UNDER THE TONGUE [...] Active Problems Problem Noted Date Diagnosed Date Leg DVT (deep venous thromboembolism), acute, ri ght 09/09/2023 Generalized weakness 09/09/2023 On mechanically assisted ventilation 09/07/2023 Pulmonary embolism 11/17/2021 Stage 3b chronic kidney disease 11/12/2021 Stasis dermatitis of both legs 03/06/2015 Overview (03/06/2015): ICD10 Atrioventricular block 01/16/2015 Cardiac pacemaker in situ 01/16/2015 BPH without obstruction/lower urinary tract symp toms 12/18/2014 Syncope and collapse 10/31/2014 Coronary artery disease invo lving [place] coronary artery without angina pectoris 10/31/2014 Hematuria, [...] Chest pain 09/28/2012 02/06/2013 [employer] Other*[id number] 09/28/2012 05/12/2016 Overview (09/28/2012): Study Title: Genomic Markers for Patients with Cardiovascular Disease Project # [id number] Sales Order Administrator: Jody Grijalva MD [phone] Impacted cerumen 03/01/2012 01/30/2015 Otitis externa, acute [...] PPD 11/19/1998 Pneumococcal Conjugate Vacci ne, 20-valent ([id number]) 09/12/2023,09/11/2023(Deferred: Patient Refused - " I want to wait till later in the year") Pneumococcal Polysaccharide PPV23 (Pneumovax) 02/08/1995 Seasonal Influenza Vac., MDV , IM, 0.5 mL (Fluzone) 02/04/2012,02/17/2000 Seasonal Influenza, Quadrivalent, ID 01/25/2020 TDAP (age 10 and older)(Boostrix) 10/27/2017 documented as of this encounter Social History Tobacco Use Types Packs/Day Years Used Date Smoking Tobacco: Former Cigarettes 1 04 05 956 - 1966 Pipe Smokeless Tobacco: Former Chew [...] encounter Miscellaneous Notes * Telephone Encounter - Marylou Mcgovern NRCMA - 03/08/2024 10:43 AM EST Spoke with Lance to scheduled pt for replacement. Pt was offered 03/16 and that date does not work for them. Pt/Lance is ask if this can be scheduled for 04/03/24 at [facility]. Will discuss with provider andmake pt aware. DAVID Brady * Telephone Encounter - Marylou Mcgovern NRCMA - 03/07/2024 5:03 PM EST Will call pt to discuss date.time. DAVID Brady * Telephone Encounter - Jduy Rivas LPN - 03/06/2024 7:37 AM EST [place] at assisted living advised. Aware that EP will be in touch. * Telephone Encounter - Judy Rivas LPN - 03/05/2024 12:53 PM EST Images from the original note were not included. Recent remote from pt's MDT [employer] PPM shows that he met NETWORK DESKTOP SUPPORT SPECIALIST on 02/18/24. Pt had an EP appt on 02/17/24 to discuss nearing NETWORK DESKTOP SUPPORT SPECIALIST. Looks like procedure was discuss with some instructions in chart. documented in this encounter Plan of Treatment Upcoming Encounters Date Type Department Care Team (Late st Contact Info) Description 03/12/2025 10:00 AM EST [facility] [address] [place] [address] Stacie Augustine CRNP [address] [place] [address] Scheduled Procedures Name Priority Associated Diagnoses Date/Ti [...] Additional history exists CKD PHOS USE SMARTSET 18367 09/09/2024 06/10/2023, 09/05/2023, 11/18/2021 CKD HGB USE SMARTSET 09638 09/19/202409/19, 09/13/2023, 09/12/2023, Additional history exists TSH [...] this encounter Medical Devices Implanted Type Area Kiln Drawer Device Identifier Shelf Expiration Date Model / Serial / Lot Medtronic Implanted:Qty: 1 on 12/27/2014 by Ashley Quezada, DO at OR [facility] Right: Chest [employer] : CRM 11/26/2016 5076-52 / [id number] / [id number] Description:atrial lead Medtronic Ventricular Lead Implanted:Qty: 1 on 12/27/2014 by Ashley Quezada, DO at OR [facility] Right: Chest [employer] : CRM 11/01/2016 5076-58 / [id number] / Medtronic Pacer Implanted:Qty: 1 on 12/27/2014 by Ashley Quezada, DO at OR [facility] Right: Chest Medtrol 05/02/2016 [id number] / [id number] / documented as of this encounter Advance Directives Documents on File Type Date Recorded Patient Adult Psychiatrist Expl anation Advance Directives and Living Will 09/07/2023 Carolyne Cooper signed on 01/26/2019 Living Will and Health Care Power of Spooling Supervisor * Full Code (Latest Code Status on [...] Agen t (per Health Care Power of Spooling Supervisor document) Ginger Cooper Adult Child First Alternate Health Care Agent (per Health Care Power of Spooling Supervisor document) Care Teams Tile Machine Operator Relationship Specialty Start Date End Date Alek Vera DO [address] [place] [address] PCP - General Family Medicine 02/16/22 documented as of this encounter
--- OUTSIDE RECORDS SUMMARY | 2024-05-09 10:46 | External Medical Summary | Summary of Care ---
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 coronary artery of [place] heart without angina pectoris Take 1 Tablet by mouth every afternoon. 90 Tablet 3 2 Active Potassium Chloride Rhona ER 20 MEQ Oral Tablet Extended Release (Klor-Con M20)Indications:Cor onary artery disease involving [place] coronary artery of [place] heart without angina pectoris,HTN, goal below 140/80 [...] Oral Tablet (Lasix)Indications: Coronary artery disease involving [place] coronary artery of [place] heart without angina pectoris,HTN, goal below 140/80 Take 1 Tablet by mouth in the morning. 90 Tablet 3 3 Active Nitroglycerin 0.4 MG Sublingual Tablet Sublingual (Nitrostat)Indicati ons:Coronary artery disease involving [place] heart PLACE 1 TABLET UNDER THE TONGUE [...] collapse 10/31/2014 Coronary artery disease invo lving [place] coronary artery without angina pectoris 10/31/2014 Hematuria, [...] Chest pain 09/28/2012 02/06/2013 [employer] Other*[id number] 09/28/2012 05/12/2016 Overview (09/28/2012): Study Title: Genomic Markers for Patients with Cardiovascular Disease Project # [id number] Display Decorator: Jody Grijalva MD [phone] Impacted cerumen 03/01/2012 01/30/2015 Otitis externa, acute [...] (Moderna) 07/20/2020,06/22/2020 Pneumococcal Conjugate Vacci ne, 20-valent ([id number]) 09/12/2023,09/11/2023(Deferred: Patient Refused - " I want [...] Kameron Ruiz RN documented in this encounter Miscellaneous Notes * Telephone Encounter - Marylou Mcgovern NRCMA - 03/08/2024 3:52 PM EST This encounter was created in error. 03/08/2024, 3:52 PM, DAVID Brady documented in this encounter Plan of Treatment Upcoming Encounters Date Type Department Care Team (Late st Contact Info) Description 04/03/2024 Hospital Encounter [facility], Operating Room, [facility] - 4th Floor [address] [facility] [place] [phone] Ashley Quezada DO [address] [facility] [place] [address] 04/13/2024 1:00 PM EST Cardiac Studies Cardiology, [place] [address] [facility] [place] [address] [place] [address] [facility] [place] [address] 03/12/2025 10:00 AM EST [facility] [place] [address] [facility] [place] [address] Stacie Augustine CRNP [address] [facility] [address] Scheduled Procedures Name Priority Associated Diagnoses Date/Ti [...] Additional history exists CKD PHOS USE SMARTSET 94431 09/09/2024 06/10/2023, 09/05/2023, 11/18/2021 CKD HGB USE SMARTSET 32520 09/19/202409/19, 09/13/2023, 09/12/2023, Additional history exists TSH [...] this encounter Medical Devices Implanted Type Area Associate Professor Of Archaeology Device Identifier Shelf Expiration Date Model / Serial / Lot Medtronic Implanted:Qty: 1 on 12/27/2014 by Ashley Quezada, DO at OR [facility] Right: Chest [employer] : CRM 11/26/2016 5076-52 / [id number] / [id number] Description:atrial lead Medtronic Ventricular Lead Implanted:Qty: 1 on 12/27/2014 by Ashley Quezada, DO at OR [facility] Right: Chest [employer] : CRM 11/01/2016 5076-58 / [id number] / Medtronic Pacer Implanted:Qty: 1 on 12/27/2014 by Ashley Quezada, DO at OR [facility] Right: Chest Medtrol 05/02/2016 [id number] / [id number] / documented as of this encounter Visit Diagnoses Diagnosis Elective replacement indicated for pacemaker- Primary Fitting and adjustment of cardiac pacemaker Syncope and collapse Atrioventricular block Atrioventricular block, unspecified Encounter Created In Error- Primary documented in this encounter Advance Directives Documents on File Type Date Recorded Patient Supervisor Typesetting Expl anation Advance Directives and Living Will 09/07/2023 Carolyne Cooper signed on 01/26/2019 Living Will and Health Care Power of Electrical Sign Wirer * Full Code (Latest Code Status on [...] Agen t (per Health Care Power of Electrical Sign Wirer document) Ginger Cooper Adult Child First Alternate Health Care Agent (per Health Care Power of Electrical Sign Wirer document) Care Teams 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
--- OUTSIDE RECORDS SUMMARY | 2024-05-09 10:46 | External Medical Summary | Summary of Care ---
Author Name Unknown Organization [facility] Address [address] [place] [address] Phone [phone] Care Team Providers Care Procedural Nurse Name Role Phone Alek Vera Primary Care Provider + [phone] Reason for Visit * Reason Comments Consultation Rm 12 Encounter Details Date Type Department Care Team ([facility] st Contact Info) Description 02/17/2024 10:15 AM EST [facility] [address] [place], [place] [id number] Ashley Quezada [address] [place] [address] CHB (complete heart block) (HCC)*; Coronary artery disease involving noatak coronary artery of noatak heart without angina pectoris; HTN, goal below 140/90; Hyperlipidemia with target LDL less than 70 Allergies Active Allergy Reactions Criticality Noted Date Comments Cefaclor 11/19/1998 ITCHING Oxycodone 03/24/2012 "Makes me goofy" documented as of this encounter (statuses as of 03/10/2024) Medications TERAZOSIN HCL 10 MG PO CAPS Take 1 Capsule by mouth at bedtime. 0 11/16/19 09 Active ASPIRIN 81 MG PO CHEWIndications:Di aphragmatic hernia,Lipoma of unspecified site,Benign paroxysmal vertigo,Pulsatile tinnitus,Polyneuro ana in diabetes(357.2),AD MATTHEWS DIRECTIVE INFORMATION,DM type 2, goal A1c below 7,Dyslipidemia, goal LDL below 100,Chronic venous hypertension with inflammation,HTN, goal below 140/80,Impacted cerumen,Otitis externa, acute,Otitis externa, chronic,Hearing loss,Snoring disorder,Esophagea l reflux,Chronic rhinitis,HTN, goal to be determined,Acute myocardial infarction, subendocardial infarction, episode of care unspecified,INTERF ACED RESULT 1 Tab Oral Daily 30 Tab 3 09/30/19 13 Active levothyroxine (LEVOXYL) 100 MCG Tablet Take 1 Tablet by mouth daily first thing in the morning. Active Calcitriol 0.5 MCG Oral Capsule (Rocaltrol) Take 1 Capsule by mouth in the morning. 12/25/19 21 Active Atorvastatin Calcium 80 MG Oral Tablet (Lipitor)Indicatio ns:Dyslipidemia, goal LDL below 100,HTN, goal to be determined,Coronar y artery disease involving noatak coronary artery of [place] heart without angina pectoris Take 1 Tablet by mouth every afternoon. 90 Tablet 3 04/25/19 22 Active Potassium Chloride Rhona ER 20 MEQ Oral Tablet Extended Release (Klor-Con M20)Indications:Co ronary artery disease involving [place]ak coronary artery of [place] heart without angina pectoris,HTN, goal below 140/80 Take 1 Tablet by mouth daily. 90 Tablet 3 04/25/19 22 Active Jardiance 25 MG Oral Tablet Take 1 Tablet by mouth in the morning. 07/12/19 22 Active Magnesium Oxide 400 MG Oral Tablet TAKE 1 TAB BY MOUTH TWICE A DAY 06/12/19 22 Active Sertraline HCl 50 MG Oral Tablet Take 1.5 Tablets by mouth in the morning. Active Acetaminophen 325 MG Oral Tablet (Tylenol) Take 2 Tablets by mouth 3 times a day as needed. Active Gabapentin 300 MG Oral Capsule (Neurontin) Take 1 Capsule by mouth at bedtime. 07/17/19 23 Active Furosemide 20 MG Oral Tablet (Lasix)Indications :Coronary artery disease involving [place]atak coronary artery of [place]atak heart without angina pectoris,HTN, goal below 140/80 Take 1 Tablet by mouth in the morning. 90 Tablet 3 08/29/19 23 Active Nitroglycerin 0.4 MG Sublingual Tablet Sublingual (Nitrostat)Indicat ions:Coronary artery disease involving noatak heart PLACE 1 TABLET UNDER THE TONGUE AND ALLOW TO DISSOLVE EVERY 5 MINUTES NEEDED FOR CHEST PAIN. (MAXIMUM 3 TABLETS. IF CHEST PAIN IS NOT RELIEVED, CALL 911) 25 Tablet 3 08/29/19 23 Active Pantoprazole Sodium 40 MG Oral Tablet Delayed Release (Protonix)Indicati ons:Dyslipidemia, goal LDL below 100,HTN, goal to be determined,HTN, goal below 140/80,Diaphragmat ic hernia,Type 2 diabetes mellitus with hemoglobin A1c goal of less than 7.0% (HCC),Chronic venous hypertension with inflammation,Impac kaitlynn cerumen,Otitis externa, acute,Otitis externa, chronic,Hearing loss,Esophageal reflux,Chronic rhinitis,Unstable angina (HCC) Take 1 Tablet by mouth in the morning. 90 Tablet 3 08/29/19 23 Active Mounjaro 5 MG/0.5ML Subcutaneous Solution Pen-injector Inject 5 mg under the skin once a week. 07/07/19 24 Active Tresiba FlexTouch 200 UNIT/ML Subcutaneous Solution Pen-injector Inject 30 Units under the skin in the morning. 5 Each 09/11/19 24 Active NovoLOG FlexPen 100 UNIT/ML Subcutaneous Solution Pen-injector Consult sliding scale with meals and before bedtime 1 Each 09/11/19 24 Active Metoprolol Succinate ER 50 MG Oral Tablet Extended Release 24 Hour (toPROL XL) Take 1 Tablet by mouth in the morning and 1 Tablet before bedtime. 60 Tablet 09/11/19 24 Active Polyethylene Glycol 3350 17 GM Oral Packet (Miralax) Take 1 Packet by mouth in the morning. Hold for loose stool. 14 Each 09/11/19 24 Active Losartan Potassium-HCTZ 100-25 MG Oral Tablet (Hyzaar)Indication s:HTN, goal below 140/80 Take 1 Tablet by mouth in the morning. 90 Tablet 3 09/11/19 24 Active Bioflex Oral Tablet Take 2 Tablets by mouth in the morning. Discontinu ed(Medicat ion List Clean Up) Apixaban 5 MG Oral Tablet (Eliquis) Take 2 Tablets by mouth 2 times a day for 6 days, THEN 1 Tablet 2 times a day for 24 days. 72 Tablet 09/11/19 24 documented as of this encounter (statuses as of 03/10/2024) Active Problems Problem Noted Date Diagnosed Date [...] collapse 10/31/2014 Coronary artery disease invo lving noatak coronary artery without angina pectoris 10/31/2014 Hematuria, [...] as of this encounter (statuses as of 03/10/2024) Resolved Problems Problem Noted Date Diagnosed Date [...] Chest pain 09/28/2012 02/06/2013 [employer] Other*[id number] 09/28/2012 05/12/2016 Overview (09/28/2012): Study Title: Genomic Markers for Patients with Cardiovascular Disease Project # [id number] Equipment Engineering Technician: Jody Grijalva MD [phone] Impacted cerumen 03/01/2012 01/30/2015 Otitis externa, acute [...] as of this encounter (statuses as of 03/10/2024) Immunizations Name Administration Dates Next Due COVID-19 mRNA, LNP-s, No Pre serve, 2-Dose Series (Moderna) 07/20/2020,06/22/2020 Pneumococcal Conjugate Vacci ne, 20-valent ([id number]) 09/12/2023,09/11/2023(Deferred: Patient Refused - " I want to wait till later in the year") Seasonal Influenza Vac., MDV , IM, 0.5 mL (Fluzone) 02/04/2012 Seasonal Influenza, Quadrivalent, ID 01/25/2020 TDAP (age 10 and older)(Boostrix) 10/27/2017 documented as of this encounter Social History Tobacco Use Types Packs/Day Years Used Date Smoking Tobacco: Former Cigarettes 1 1 1 966 - 1966 Pipe Smokeless [...] Sign Reading Time Taken Comments Blood Pressure 122/70 02/17/2024 10:38 AM EST Pulse 84 02/17/2024 10:38 AM EST Temperature - - Respiratory Rate 16 02/17/2024 10:38 AM EST Oxygen Saturation - - Inhaled Oxygen Concentration - - Weight 110.7 kg (244 lb) 02/17/2024 10:38 AM EST Height 175.3 cm (5' 9") 02/17/2024 10:38 AM EST Body Mass Index 36.03 02/17/2024 10:38 AM EST documented in this encounter Functional Status * Are you deaf or do you have serious difficulty hearing? Answer Date of Assessment Author No 11/17/2021 4:40 AM EDT Kameron George, RN * Are you blind or do [...] Kameron George RN documented in this encounter Progress Notes * DamienAshley, DO - 02/17/2024 10:31 AM EST Subjective Gerry Gambino is a 78 year old male. Chief Complaint Patient presents with Consultation Rm 12 Pt referred to EP due to ppm nearing JUNIOR Referring Provider: Dr. Vera Cardiac Problems: CHB s/p ppm 12/27/2014 CAD s/p PCI LAD 201\\3 HTN HLD CKD Stage III H/o PE and DVT Hypothyroidism HPI: Pt presents today due to ppm nearing JUNIOR He otherwise has been feeling ok Pt denies any chest pain, SOB/CROOK, palpitations, lightheadedness, dizziness, near syncopal episodes, lower extremity edema,orthopnea, no change in activity level or unexplained weight changes. PMH: Patient Active Problem List Diagnosis Diaphragmatic hernia SYNDROME X Lipoma BENIGN PARXYSMAL VERTIGO PULSATILE TINNITUS Diabetic polyneuropathy (HCC) Type 2 diabetes mellitus with hemoglobin A1c goal of less than 7.0% (HCC) Dyslipidemia, goal LDL below 100 HTN, goal below 140/80 Hearing loss Snoring Esophageal reflux Chronic rhinitis S/P primary angioplasty with coronary stent Dyslipidemia, goal LDL below 70 Chronic coronary artery disease Hematuria, gross Syncope and collapse Coronary artery disease involving [place] coronary artery without angina pectoris BPH without obstruction/lower urinary tract symptoms Atrioventricular block Cardiac pacemaker in situ 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 0 ASPIRIN 81 MG PO CHEW 1 Tab Oral Daily 30 Tab 3 levothyroxine (LEVOXYL) 100 MCG Tablet Take 1 Tablet by mouth daily first thing in the morning. Calcitriol 0.5 MCG Oral Capsule (Rocaltrol) Take 1 Capsule by mouth in the morning. Atorvastatin Calcium 80 MG Oral Tablet (Lipitor) Take 1 Tablet by mouth every afternoon. 90 Tablet 3 Potassium Chloride Rhona ER 20 MEQ Oral Tablet Extended Release (Klor-Con M20) Take 1 Tablet by mouth daily. 90 Tablet 3 Jardiance 25 MG Oral Tablet Take 1 Tablet by mouth in the morning. Magnesium Oxide 400 MG Oral Tablet TAKE 1 TAB BY MOUTH TWICE A DAY Sertraline HCl 50 MG Oral Tablet Take 1.5 Tablets by mouth in the morning. Bioflex Oral Tablet Take 2 Tablets by mouth in the morning. Acetaminophen 325 MG Oral Tablet (Tylenol) Take 2 Tablets by mouth 3 times a day as needed. Gabapentin 300 MG Oral Capsule (Neurontin) Take 1 Capsule by mouth at bedtime. Furosemide 20 MG Oral Tablet (Lasix) Take 1 Tablet by mouth in the morning. 90 Tablet 3 Nitroglycerin 0.4 MG Sublingual Tablet Sublingual (Nitrostat) PLACE 1 TABLET UNDER THE TONGUE AND ALLOW TO DISSOLVE EVERY 5 MINUTES NEEDED FOR CHEST PAIN. (MAXIMUM 3 TABLETS. IF CHEST PAIN IS NOT RELIEVED, CALL 911) 25 Tablet 3 Pantoprazole Sodium 40 MG Oral Tablet Delayed Release (Protonix) Take 1 Tablet by mouth in the morning. 90 Tablet 3 Mounjaro 5 MG/0.5ML Subcutaneous Solution Pen-injector Inject 5 mg under the skin once a week. Tresiba FlexTouch 200 UNIT/ML Subcutaneous Solution Pen-injector Inject 30 Units under the skin in the morning. 5 Each 0 NovoLOG FlexPen 100 UNIT/ML Subcutaneous Solution Pen-injector Consult sliding scale with meals andbefore bedtime 1 Each 0 Metoprolol Succinate ER 50 MG Oral Tablet Extended Release 24 Hour (toPROL XL) Take 1 Tablet by mouth in the morning and 1 Tablet before bedtime. 60 Tablet 0 Polyethylene Glycol 3350 17 GM Oral Packet (Miralax) Take 1 Packet by mouth in the morning. Hold for loose stool. 14 Each 0 Losartan Potassium-HCTZ 100-25 MG Oral Tablet (Hyzaar) Take 1 Tablet by mouth in the morning. 90 Tablet 3 No current facility-administered medications for this visit. Past Medical History: Diagnosis Date CHF (congestive heart failure) (HCC) Diaphragmatic hernia DM type 2, goal A1c below 7 Dyslipidemia, goal to be determined HTN, goal to be determined Personal history of colonic polyps Past Surgical History: Procedure Laterality Date COLONOSCOPY, DIAGNOSTIC (RECTUM) N/A 10/16/2014 adenomatous polyps. repeat in 3 yrs/COLONOSCOPY FLEXIBLE PROXIMAL DIAGNOSTIC performed by Art Jessica DO at OR [facility] COLONOSCOPY, DIAGNOSTIC (RECTUM) N/A 12/08/2017 adenomatous and tubulovillous adenomas/recall 1 year/COLONOSCOPY FLEXIBLE PROXIMAL DIAGNOSTIC performed by Sergey Neely MD at OR [facility] COLONOSCOPY, DIAGNOSTIC (RECTUM) N/A 03/16/2019 poor prep/one small polyp transverse colon, not retrieved/recall 3 years/COLONOSCOPY FLEXIBLE PROXIMAL DIAGNOSTIC performed by Lowell Cohen MD at OR [facility] CORONARY ANGIOGRAPHY CATH PLACEMENT 09/28/2012 CORONARY ANGIOGRAPHY CATH PLACEMENT performed [place] Gerry Abdalla [place] [facility], W/ENDOSCOPIC US 11/17/2011 UPPER GI ENDOSCOPY ENDOSCOPIC ULTRASOUND performed by Artie Brandon MD [place] [facility] [facility] [place]JECT DX/THER SUBSTANCE INTERLAMINAR LUMBAR/SACRAL W IMAGE GUIDE 10/08/2021 INJECTION SPINE LUMBAR OR SACRAL performed by Tutu Dunbar DO at OR [facility] INSERT/REPLACE PACEMAKER,ATRIAL/VENTRICULAR Right 12/27/2014 NEW DDD PACEMAKER IMPLANT performed by Ashley Quezada DO at OR [facility] LAPAROSCOPY; CHOLECYSTECTOMY 2011 Cholecystectomy, Laproscopic SACROILIAC JOINT INJECT W/GUIDANCE 08/20/2021 INJECTION SACROILIAC JOINT performed by Tutu Dunbar DO at OR [facility] Review of patient's allergies indicates: Allergen Reactions Cefaclor ITCHING Oxycodone "Makes me goofy" Family History Problem Relation Name Age of Onset Diabetes Father Lung Disorder Father Gastro-intestinal disorder Brother hosp diverticulitis 10/04 Diabetes Grandmother (Maternal) Cancer Grandfather (Paternal) lung ca Cancer Grandfather (Maternal) stomach ca Family Status Relation Status Mo Alive 76 in [place] Alive 78 in [place], smoker, copd Bro Alive diverticulosis, Bro Alive MGMA MGFA PGMA PGFA Bro (Not Specified) Social History Socioeconomic History Marital status: Spouse name: Not on file Number of children: Not on file Years of education: Not on file Highest education level: Not on file Occupational History Not on file Tobacco Use Smoking status: Former Current packs/day: 0.00 Average packs/day: 1 pack/day for 1 year (1.0 ttl pk-yrs) Types: Cigarettes, Pipe Start date: 1965 Quit date: 1966 Years since quittin.9 Smokeless tobacco: Former Types: Chew Quit date: 09/03/2002 Vaping Use Vaping status: Never Used Substance and Sexual Activity Alcohol use: Yes Alcohol/week: 1.0 standard drink of alcohol Types: 1 12 oz of beer per week Comment: occasionally Drug use: No Sexual activity: Not Currently Other Topics Concern Not on file Social History Narrative Not on file Social Needs Financial Resource Strain: Not on file Food Insecurity: Not on file Transportation Needs: Not on file Social Connections: Not on file Housing Stability: Not on file Review of Systems Constitutional: Negative for activity [...] Neurological: Negative for dizziness, syncope and light-headedness. Objective BP 122/70 | Pulse 84 | Resp 16 | Ht 1.753 m (5' 9") | Wt 110.7 kg (244 lb) | BMI 36.03 kg/m | BSA2.32 m Physical Exam Vitals and nursing note reviewed. [...] normal and S2 normal. No murmur heard. Pulmonary: Effort: Pulmonary effort is normal. Breath sounds: Normal breath sounds. No decreased breath sounds, wheezing, rhonchi or rales. Chest: Comments: Left pectoral region; ppm site no evidence of threatened erosion Abdominal: General: Abdomen is protuberant. Musculoskeletal: Cervical back: Neck supple. Right lower leg: No edema. Left lower leg: No edema. Skin: General: Skin is warm and dry. Neurological: General: No focal deficit present. Mental Status: He is alert and oriented to person, place, and time. Psychiatric: Attention and Perception: Attention normal. Mood and Affect: Mood normal. Speech: Speech normal. Behavior: Behavior normal. Behavior is cooperative. Thought Content: Thought content normal. Cognition and Memory: Cognition normal. Judgment: Judgment normal. RESULTS: Pacemaker Interrogation: 02/13/2024: AP 100% SALES DEVELOPMENT REPRESENTATIVE 98% ECGS: 09/05/2023: SR 87bpm 1st degree [...] of the original stent, requiring a 3rd SRHUTHI covering the distal part of the original stent. We then post dilated this with a 4 mm balloon. The final result was perfect The procedure was compllcated by transient slow flow after the 2nd stent was placed Lab Work Reviewed: Component Latest Ref Rng 09/13/2023 09/20/2023 10/11/2023 BUN 6 - 20 mg/dL 28 (H) 29 (H) CREATININE 0.6 - 1.2 mg/dL 2.0 (H) 2.2 (H) EGFR >=60 mL/min 35 (L) 30 (L) SODIUM 135 - 146 mmol/L 141 136 POTASSIUM 3.5 - 5.1 mmol/L 3.7 3.9 CHLORIDE 98 - 107 mmol/L 107 97 (L) CO2 22 - 32 mmol/L 21 (L) 28 ANION GAP 7 - 15 mmol/L 13 11 GLUCOSE 70 - 120 mg/dL 188 (H) 305 (H) Albumin 3.8 - 5.0 g/dL 3.2 (L) AST 10 - 50 U/L 44 Alkaline Phosphatase 35 - 130 U/L 90 Bilirubin, Total <=1.2 mg/dL 0.4 CALCIUM 8.4 - 10.2 mg/dL 8.6 9.0 Protein 6.0 - 8.3 g/dL 5.3 (L) ALT 10 - 50 U/L 46 WBC 4.00 - 10.80 K/uL 8.73 11.06 (H) RBC 4.50 - 5.25 M/uL 4.32 4.11 HGB 14.0 - 16.8 g/dL 12.3 (L) 11.5 (L) HCT 40.0 - 48.4 % 38.1 (L) 36.6 (L) MCV 82.0 - 99.5 fL 88.2 89.1 MCH 27.0 - 34.0 pg 28.5 28.0 MCHC 32.0 - 36.0 g/dL 32.3 31.4 RDW 11.5 - 15.5 % 14.6 14.6 PLT 140 - 400 K/uL 207 224 MPV 6.6 - 11.1 fL 11.2 12.0 nRBCs <=0 /100 WBCs 0 0 Triglycerides <=174 mg/dL 163 Cholesterol <200 mg/dL 115 HDL Cholesterol >39 mg/dL 42 Non-HDL Cholesterol <=159 mg/dL 73 LDL Cholesterol <=129 mg/dL 40 Hemoglobin A1C 4.0 - 5.6 % 11.3 (H) Estimated Average Glucose <126 mg/dL 278 (H) T3, Total 80 - 200 ng/dL 76 (L) TSH 0.27 - 4.20 uIU/mL 6.36 (H) 1.52 Magnesium 1.5 - 2.6 mg/dL 2.6 ASSESSMENT: CHB s/p ppm 12/27/2014 CAD s/p PCI LAD 201\\3 HTN HLD CKD Stage III DM H/o PE and DVT Hypothyroidism GERD BPH PLAN: -Pt doing well from cardiovascular perspective at this time -Device has not reached JUNIOR yet; once it does would arrange for generator change -His EF remains normal and he is not having CHF so he seems to be tolerating the apical RV pacing; therefore no need to upgrade to a biv device -Discussed procedure and risks which include but are not limited to arrhythmias, strokes, heart attacks, , bleeding and infection with the patient; expressed an understanding and wish to proceedonce the device flips JUNIOR -Pt will lab work closer to procedure -Continue with routine device checks -Device and wound check 10 days after the procedure -Hold lasix morning of procedure -EP f/u 1 year Ashley Quezada DO I spent a total of Greater than 55 mins (exact time 80 mins) on the date of service in preparation,delivery, and documentation of the care provided to Gerry Gambino excluding any time spent in the performance of separately billed services or time spent by another provider/QHP. documented in this encounter Nursing Notes * Marylou Mcgovern NRCMA - 02/17/2024 10:40 AM EST Patient was identified by name and date of . Examination Room: 12 Name: Gerry Gambino Date of : (1945). Reason for Visit: consult Interim Hospitalization(s): none Problems/Concerns: none Chest Pain/SOB: SOB with exertion Medications reviewed and are up to date via: [employer] [facility] is a way you can talk to your provider online through e-mail. Would you like to sign up? I can activate it for you? ALREADY ACTIVE Do you have video visit capabilities (email and smart phone)? No. Would you be interested in 6 or 12 return visit being scheduled as a video visit if the provider approves? No Patient was instructed to not get up on the exam table/exam chair until directed and assisted by their provider; patient is to remain seated in the chair/ wheelchair/ exam table/ exam chair for fall prevention and safety reasons. Patient is aware to have assistance to step down off exam table/exam chair with personnel. Patient voiced full comprehension of instructions. DAVID Pena documented in this encounter Plan of Treatment Upcoming Encounters Date Type Department Care Team (Latest Contact Info) Description 04/03/2024 8:30 AM EST Hospital Encounter OR [facility], Operating Room, [facility] - 4th Floor [address] [place] [phone] Ashley Quezada, DO [address] [place] [phone] 04/03/2024 8:30 AM EST - 04/03/2024 9:47 AM EST Surgery OR [facility], Operating Room, [facility] - 4th Floor [address] [phone] Ashley Quezada DO [address] [place] [phone] NEW DDD PACEMAKER GENERATOR ONLY 04/13/2024 1:00 PM EST Cardiac Studies Cardiology, [place] [address] [address] [place] [address] [place] [phone] 03/12/2025 10:00 AM EST Office Visit Cardiology, [place] [address] [place] [phone] Stacie Augustine CRNP [address] [place] [phone] Scheduled Procedures Name Priority Associated Diagnoses Date/Ti [...] Additional history exists CKD PHOS USE SMARTSET 02703 09/09/2024 0610/2023, 09/05/2023, 11/18/2021 CKD HGB USE SMARTSET 23534 09/19/202409/19, 09/13/2023, 09/12/2023, Additional history exists TSH [...] this encounter Medical Devices Implanted Type Area Roguer Device Identifier Shelf Expiration Date Model / Serial / Lot Medtronic Implanted:Qty: 1 on 12/27/2014 by Ashley Quezada DO at OR [facility] Right: Chest MEDTR[employer]IC : KENNEDY 11/26/2016 5076-52 / [id number] / [id number] Description:atrial lead Medtronic Ventricular Lead Implanted:Qty: 1 on 12/27/2014 by Ashley Quezada DO at OR [facility] Right: Chest MEDTR[employer]IC : KENNEDY 11/01/2016 5076-58 / [id number] / Medtronic Pacer Implanted:Qty: 1 on 12/27/2014 by Ashley Quezada DO at OR [facility] Right: Chest Medtrol 05/02/2016 [id number] / [id number] / documented as of this encounter Visit Diagnoses Diagnosis CHB (complete heart block) (HCC)- Primary Atrioventricular block, complete Coronary artery disease involving [place]ak coronary artery of [place] heart without angina pectoris HTN, goal below 140/90 Unspecified essential hypertension Hyperlipidemia with target LDL less than 70 Other and unspecified hyperlipidemia Elective replacement indicated for pacemaker- Primary Fitting and adjustment of cardiac pacemaker Syncope and collapse Atrioventricular block Atrioventricular block, unspecified Syncope and collapse Atrioventricular block Atrioventricular block, unspecified Elective replacement indicated for pacemaker Fitting and adjustment of cardiac pacemaker documented in this encounter Advance Directives Documents on File Type Date Recorded Patient Cardiovascular Sonographer Expl anation Advance Directives and Living Will 09/07/2023 Carolyne Cooper signed on 01/26/2019 Living Will and Health Care Power of Ore Buyer * Full Code (Latest Code Status on [...] Agen t (per Health Care Power of Ore Buyer document) Ginger Cooper Adult Child First Alternate Health Care Agent (per Health Care Power of Ore Buyer document) Care Teams Procedural Nurse Relationship Specialty Start Date End Date Alek Vera DO [address] [place] [id number] PCP - General Family Medicine 02/16/22 documented as of this encounter
--- OUTSIDE RECORDS SUMMARY | 2024-05-09 10:46 | External Medical Summary | Summary of Care ---
Author Name Unknown Organization [facility] Address [address] [place] [address] Phone [phone] Care Team Providers Care Concrete Pourer Name Role Phone Alek Vera Primary Care Provider [phone] Reason for Visit * Reason Onset Date Comments Pacemaker Check 03/05/2024 PANTS BUSHELER 02/18/24 Encounter Details Date Type Department Care Team (Late st Contact Info) Description 03/05/2024 Telephone Cardiology, [place] [address] [place] [address] [place] [address] [place] [address] Pacemaker Check (PANTS BUSHELER 02/18/24) Allergies Active Allergy Reactions Criticality Noted [...] goal to be determined,Coronary artery disease involving [place] coronary artery of [place] heart without angina pectoris Take 1 Tablet by mouth every afternoon. 90 Tablet 3 2 Active Potassium Chloride Rhona ER 20 MEQ Oral Tablet Extended Release (Klor-Con M20)Indications:Cor onary artery disease involving [place] coronary artery of [place] heart without angina pectoris,HTN, goal below 140/80 [...] Oral Tablet (Lasix)Indications: Coronary artery disease involving [place] coronary artery of [place] heart without angina pectoris,HTN, goal below 140/80 Take 1 Tablet by mouth in the morning. 90 Tablet 3 3 Active Nitroglycerin 0.4 MG Sublingual Tablet Sublingual (Nitrostat)Indicati ons:Coronary artery disease involving [place] heart PLACE 1 TABLET UNDER THE TONGUE [...] collapse 10/31/2014 Coronary artery disease invo lving [place] coronary artery without angina pectoris 10/31/2014 Hematuria, [...] Chest pain 09/28/2012 02/06/2013 [employer] Other*[id number] 09/28/2012 05/12/2016 Overview (09/28/2012): Study Title: Genomic Markers for Patients with Cardiovascular Disease Project # [id number] Environmental Health Inspector: Jody Grijalva MD [phone] Impacted cerumen 03/01/2012 01/30/2015 Otitis externa, acute [...] PPD 11/19/1998 Pneumococcal Conjugate Vacci ne, 20-valent (Hyvxfyf21) 09/12/2023,09/11/2023(Deferred: Patient Refused - " I want [...] scheduled on 04/03/2024 at 8:30 am at [facility]. LMOM for Alicia to call back to confirm date, time and instructions (wash p/u). DAVID Brady * Telephone Encounter - Karen Mcgovern NRCMA - 03/08/2024 10:43 AM EST Spoke with Alicia to scheduled pt for replacement. Pt was offered 03/16 and that date does not work for them. Pt/Alicia is ask if this can be scheduled for 04/03/24 at [facility]. Will discuss with provider andmake pt aware. DAVID Brady * Telephone Encounter - Karen Mcgovern NRCMA - 03/07/2024 5:03 PM EST Will call pt to discuss date.time. DAVID Brady * Telephone Encounter - Judy Rivas LPN - 03/06/2024 7:37 AM EST Kamryn at [facility] living advised. Aware that EP will be in touch. * Telephone Encounter - Judy Rivas LPN - 03/05/2024 12:53 PM EST Images from the original note were not included. Recent remote from pt's MDT Advisa PPM shows that he met PANTS BUSHELER on 02/18/24. Pt had an EP appt on 02/17/24 to discuss nearing PANTS BUSHELER. Looks like procedure was discuss with some instructions in chart. documented in this encounter Plan of Treatment Upcoming Encounters Date Type Department Care Team (Late st Contact Info) Description 04/03/2024 Hospital Encounter [facility], Operating Room, [facility] - 4th Floor [address] [place] [address] Ashley Quezada DO [address] [place] [address] 04/13/2024 1:00 PM EST Cardiac Studies [facility] [address] [place] [address] [place] 400 [facility] [place] [address] 03/12/2025 10:00 AM EST Office Visit [facility] [address] [place] [address] Stacie Augustine CRNP 400 [facility] [place] [address] Scheduled Procedures Name Priority Associated Diagnoses Date/Ti [...] Additional history exists CKD PHOS USE SMARTSET 65236 09/09/2024 06/0 10/2023, 09/05/2023, 11/18/2021 CKD HGB USE SMARTSET 56008 09/19/202409/19, 09/13/2023, 09/12/2023, Additional history exists TSH [...] this encounter Medical Devices Implanted Type Area Marbleizing Machine Tender Device Identifier Shelf Expiration Date Model / Serial / Lot Medtronic Implanted:Qty: 1 on 12/27/2014 by Ashley Quezada, DO at [facility] Right: Chest MEDTRONIC : CRM 11/26/2016 5076-52 / [id number] / [id number] Description:atrial lead Medtronic Ventricular Lead Implanted:Qty: 1 on 12/27/2014 by Ashley Quezada, DO at [facility] Right: Chest MEDTRONIC : KENNEDY 11/01/2016 5076-58 / [id number] / Medtronic Pacer Implanted:Qty: 1 on 12/27/2014 by Ashley Quezada, DO at [facility] Right: Chest Medtrol 05/02/2016 A2DR01 / [id number] / documented as of this encounter Visit Diagnoses Diagnosis Syncope and collapse- Primary Atrioventricular block Atrioventricular block, unspecified Elective replacement indicated for pacemaker Fitting and adjustment of cardiac pacemaker Elective replacement indicated for pacemaker- Primary Fitting and adjustment of cardiac pacemaker Syncope and collapse Atrioventricular block Atrioventricular block, unspecified documented in this encounter Advance Directives Documents on File Type Date Recorded Patient Operations Officer Afloat Expl anation Advance Directives and Living Will 09/07/2023 Carolyne Cooper signed on 01/26/2019 Living Will and Health Care Power of Chemical Process Project Engineer * Full Code (Latest Code Status on [...] Agen t (per Health Care Power of Chemical Process Project Engineer document) Ginger Cooper Adult Child First Alternate Health Care Agent (per Health Care Power of Chemical Process Project Engineer document) Care Teams Concrete Pourer Relationship Specialty Start Date End Date Alek Vera DO [address] [place] [address] PCP - General Family Medicine 02/16/22 documented as of this encounter
--- OUTSIDE RECORDS SUMMARY | 2024-05-09 10:46 | External Medical Summary | Summary of Care ---
Author Name Unknown Organization [facility] Address [address] [place] [address] Phone [phone] Care Team Providers Care Head Of Stock Name Role Phone Alek Vera Primary Care Provider [phone] Reason for Visit * Reason Onset Date Comments Pacemaker Check 03/05/2024 AUTO RESEARCH ENGINEER 02/18/24 Encounter Details Date Type Department Care Team (Late st Contact Info) Description 03/05/2024 Telephone Cardiology, [place] [address] [place] [address] [place], [facility] [address] [place] [address] Pacemaker Check (AUTO RESEARCH ENGINEER 02/18/24) Allergies Active Allergy Reactions Criticality Noted [...] goal to be determined,Coronary artery disease involving [place] coronary artery of [place] heart without angina pectoris Take 1 Tablet by mouth every afternoon. 90 Tablet 3 2 Active Potassium Chloride Rhona ER 20 MEQ Oral Tablet Extended Release (Klor-Con M20)Indications:Cor onary artery disease involving [place] coronary artery of [place] heart without angina pectoris,HTN, goal below 140/80 [...] Oral Tablet (Lasix)Indications: Coronary artery disease involving [place] coronary artery of [place] heart without angina pectoris,HTN, goal below 140/80 Take 1 Tablet by mouth in the morning. 90 Tablet 3 3 Active Nitroglycerin 0.4 MG Sublingual Tablet Sublingual (Nitrostat)Indicati ons:Coronary artery disease involving [place] heart PLACE 1 TABLET UNDER THE TONGUE [...] collapse 10/31/2014 Coronary artery disease invo lving [place] coronary artery without angina pectoris 10/31/2014 Hematuria, [...] Chest pain 09/28/2012 02/06/2013 [employer] Other*[id number] 09/28/2012 05/12/2016 Overview (09/28/2012): Study Title: Genomic Markers for Patients with Cardiovascular Disease Project # [id number] Bar Attendant: Jody Grijalva MD [phone] Impacted cerumen 03/01/2012 01/30/2015 Otitis externa, acute [...] PPD 11/19/1998 Pneumococcal Conjugate Vacci ne, 20-valent (Trpzlhq07) 09/12/2023,09/11/2023(Deferred: Patient Refused - " I want [...] scheduled on 04/03/2024 at 8:30 am at [facility]. LMOM for Alicia to call back to confirm date, time and instructions (wash p/u). DAVID Brady * Telephone Encounter - Karen Mcgovern NRCMA - 03/08/2024 10:43 AM EST Spoke with Alicia to scheduled pt for replacement. Pt was offered 03/16 and that date does not work for them. Pt/Alicia is ask if this can be scheduled for 04/03/24 at [facility]. Will discuss with provider andmake pt aware. DAVID Brady * Telephone Encounter - Karen Mcgovern NRCMA - 03/07/2024 5:03 PM EST Will call pt to discuss date.time. DAVID Brady * Telephone Encounter - Judy Rivas LPN - 03/06/2024 7:37 AM EST Kamryn at [facility] living advised. Aware that EP will be in touch. * Telephone Encounter - Judy Rivas LPN - 03/05/2024 12:53 PM EST Images from the original note were not included. Recent remote from pt's MDT Advisa PPM shows that he met AUTO RESEARCH ENGINEER on 02/18/24. Pt had an EP appt on 02/17/24 to discuss nearing AUTO RESEARCH ENGINEER. Looks like procedure was discuss with some instructions in chart. documented in this encounter Plan of Treatment Upcoming Encounters Date Type Department Care Team (Late st Contact Info) Description 04/03/2024 Hospital Encounter [facility], Operating Room, [facility] - 4th Floor [address] [place] [address] Ashley Quezada DO [address] [place] [address] 04/13/2024 1:00 PM EST Cardiac Studies [facility] [address] [place] [address] [place], Pac[facility] 400 [facility] [place] [address] 03/12/2025 10:00 AM EST Office Visit [facility] [address] [place] [address] Stacie Augustine CRNP 400 [facility] [place] [address] Scheduled Procedures Name Priority Associated Diagnoses Date/Ti [...] Additional history exists CKD PHOS USE SMARTSET 46647 09/09/2024 06/0 10/2023, 09/05/2023, 11/18/2021 CKD HGB USE SMARTSET 78113 09/19/202409/19, 09/13/2023, 09/12/2023, Additional history exists TSH [...] this encounter Medical Devices Implanted Type Area Order Caller Device Identifier Shelf Expiration Date Model / Serial / Lot Medtronic Implanted:Qty: 1 on 12/27/2014 by Ashley Quezada, DO at [facility] Right: Chest MEDTRONIC : CRM 11/26/2016 5076-52 / [id number] / 5076-52CM Description:atrial lead Medtronic Ventricular Lead Implanted:Qty: 1 on 12/27/2014 by Ashley Quezada, DO at [facility] Right: Chest MEDTRONIC : KENNEDY 11/01/2016 5076-58 / [id number] / Medtronic Pacer Implanted:Qty: 1 on 12/27/2014 by Ashley Quezada, DO at [facility] Right: Chest Medtrol 05/02/2016 A2DR01 / [id number] / documented as of this encounter Visit Diagnoses Diagnosis Syncope and collapse- Primary Atrioventricular block Atrioventricular block, unspecified Elective replacement indicated for pacemaker Fitting and adjustment of cardiac pacemaker Elective replacement indicated for pacemaker- Primary Fitting and adjustment of cardiac pacemaker Syncope and collapse Atrioventricular block Atrioventricular block, unspecified documented in this encounter Advance Directives Documents on File Type Date Recorded Patient Steel Fabricator Expl anation Advance Directives and Living Will 09/07/2023 Carolyne Cooper signed on 01/26/2019 Living Will and Health Care Power of Student Counsellor * Full Code (Latest Code Status on [...] Agen t (per Health Care Power of Student Counsellor document) Ginger Cooper Adult Child First Alternate Health Care Agent (per Health Care Power of Student Counsellor document) Care Teams Head Of Stock Relationship Specialty Start Date End Date Alek Vera DO [address] [place] [address] PCP - General Family Medicine 02/16/22 documented as of this encounter
--- OUTSIDE RECORDS SUMMARY | 2024-05-09 10:46 | External Medical Summary | Summary of Care ---
Author Name Unknown Organization [facility] Address [address] [place] [address] Phone [phone] Care Team Providers Care Floral Clerk Name Role Phone Alek Vera Primary Care Provider [phone] Reason for Visit * Reason Onset Date Comments Pacemaker Check 03/05/2024 COMPLIANCE NURSE 02/18/24 Encounter Details Date Type Department Care Team (Late st Contact Info) Description 03/05/2024 Telephone Cardiology, [place] [address] [place] [address] [place], [facility] [address] [place] [address] Pacemaker Check (COMPLIANCE NURSE 02/18/24) Allergies Active Allergy Reactions Criticality Noted [...] goal to be determined,Coronary artery disease involving [place] coronary artery of [place] heart without angina pectoris Take 1 Tablet by mouth every afternoon. 90 Tablet 3 2 Active Potassium Chloride Rhona ER 20 MEQ Oral Tablet Extended Release (Klor-Con M20)Indications:Cor onary artery disease involving [place] coronary artery of [place] heart without angina pectoris,HTN, goal below 140/80 [...] Oral Tablet (Lasix)Indications: Coronary artery disease involving [place] coronary artery of [place] heart without angina pectoris,HTN, goal below 140/80 Take 1 Tablet by mouth in the morning. 90 Tablet 3 3 Active Nitroglycerin 0.4 MG Sublingual Tablet Sublingual (Nitrostat)Indicati ons:Coronary artery disease involving y[place] de[place] heart PLACE 1 TABLET UNDER THE TONGUE [...] collapse 10/31/2014 Coronary artery disease invo lving [place] coronary artery without angina pectoris 10/31/2014 Hematuria, [...] Chest pain 09/28/2012 02/06/2013 [employer] Other*[id number] 09/28/2012 05/12/2016 Overview (09/28/2012): Study Title: Genomic Markers for Patients with Cardiovascular Disease Project # [id number] Managing Attorney: Jody Grijalva MD [phone] Impacted cerumen 03/01/2012 01/30/2015 Otitis externa, acute [...] PPD 11/19/1998 Pneumococcal Conjugate Vacci ne, 20-valent (Irecjva39) 09/12/2023,09/11/2023(Deferred: Patient Refused - " I want [...] encounter Miscellaneous Notes * Telephone Encounter - Shelby Calderon OSA - 03/10/2024 2:11 PM EST [facility] Relationship to patient: n/a Phone/Fax to return call: [phone]; Reason for call(brief): Fax Pharmacy: n/a Provider Name: n/a Detailed message to office: Edgar Jeffi: [facility] called to report that she received the fax with patient instructions, date, & time of patient's upcoming procedure, but is requesting it to be refaxed to the office. Kamryn states that the date and time of the procedure is hard to make out. Please advise. Thank you, VIRGEN Lozoya * Addendum Note - Karen Hastings NRCMA - 03/08/2024 4:04 PM ESTAddended by: KAREN HASTINGS on: 03/08/2024 04:04 PM Modules accepted: Orders * Addendum Note - Karen Hastings NRCMA - 03/08/2024 3:37 PM ESTAddended by: KAREN HASTINGS on: 03/08/2024 03:37 PM Modules accepted: Orders * Telephone Encounter - Karen Hastings NRCMA - 03/08/2024 3:[address] Quezada, pt can be scheduled on 04/03/2024 at 8:30 am at [facility]. LMOM for Alicia to call back to confirm date, time and instructions (wash p/u). DAVID Brady * Telephone Encounter - Karen Hastings NRCMA - 03/08/2024 10:43 AM EST Spoke with Alicia to scheduled pt for replacement. Pt was offered 03/16 and that date does not work for them. Pt/Alicia is ask if this can be scheduled for 04/03/24 at [facility]. Will discuss with provider andmake pt aware. ADVID Brady * Telephone Encounter - Karen Hastings NRCMA - 03/07/2024 5:03 PM EST Will [...] MDT Advisa PPM shows that he met COMPLIANCE NURSE on 02/18/24. Pt had an EP appt on 02/17/24 to discuss nearing COMPLIANCE NURSE. Looks like procedure was discuss with some instructions in chart. documented in this encounter Plan of Treatment Upcoming Encounters Date Type Department Care Team (Latest Contact Info) Description 04/03/2024 8:30 AM EST Hospital Encounter OR [facility], Operating Room, [facility] - 4th Floor [address] [place] [address] Ashley Quezada, DO [address] [place] [address] 04/03/2024 8:30 AM EST - 04/03/2024 9:47 AM EST Surgery [facility], Operating Room, [facility] - 4th Floor [address] [place] [address] Ashley Quezada, DO [address] [place] [address] NEW DDD PACEMAKER GENERATOR ONLY 04/13/2024 1:00 PM EST Cardiac Studies Cardiology, [place] [address] [place] [address] [place], [facility] [address] [place] [address] 03/12/2025 10:00 AM EST Office Visit Cardiology, [place] [address] [place] [address] Stacie Augustine CRNP [address] [place] [address] Scheduled Orders Name Type Priority Associated Diagnoses [...] Additional history exists CKD PHOS USE SMARTSET 27407 09/09/2024 06/0 10/2023, 09/05/2023, 11/18/2021 CKD HGB USE SMARTSET 07650 09/19/202409/19, 09/13/2023, 09/12/2023, Additional history exists TSH [...] this encounter Medical Devices Implanted Type Area Photography Coordinator Device Identifier Shelf Expiration Date Model / Serial / Lot Medtronic Implanted:Qty: 1 on 12/27/2014 by Ashley Quezada, DO at OR [facility] Right: Chest MEDTRONIC : CRM 11/26/2016 5076-52 / [id number] / 5076-52CM Description:atrial lead Medtronic Ventricular Lead Implanted:Qty: 1 on 12/27/2014 by Ashley Quezada, DO at OR [facility] Right: Chest MEDTRONIC : CRM 11/01/2016 5076-58 / [id number] / Medtronic Pacer Implanted:Qty: 1 on 12/27/2014 by Ashley Quezada, DO at OR [facility] Right: Chest Medtrol 05/02/2016 A2DR01 / [id number] / documented as of this encounter Visit [...] Documents on File Type Date Recorded Patient Uptwister Tender Expl anation Advance Directives and Living Will 09/07/2023 Carolyne Cooper signed on 01/26/2019 Living Will and Health Care Power of Fisher Scallop * Full Code (Latest Code Status on [...] Agen t (per Health Care Power of Fisher Scallop document) Ginger Cooper Adult Child First Alternate Health Care Agent (per Health Care Power of Fisher Scallop document) Care Teams Floral Clerk Relationship Specialty Start Date End Date Alek Vera DO [address] [place] [address] PCP - General Family Medicine 02/16/22 documented as of this encounter
--- OUTSIDE RECORDS SUMMARY | 2024-05-09 10:46 | External Medical Summary | Summary of Care ---
Author Name Unknown Organization [facility] Address [address] [place] [address] Phone [phone] Care Team Providers Care Magnetic Grinder Operator Name Role Phone Alek Vera Primary Care Provider [phone] Reason for Visit * Reason Onset Date Comments Pacemaker Check 03/05/2024 ADOBE LAYER HELPER 02/18/24 Encounter Details Date Type Department Care Team (Late st Contact Info) Description 03/05/2024 Telephone Cardiology, [place] [address] [place] [address] [place], Pac[facility] [address] [place] [address] Pacemaker Check (ADOBE LAYER HELPER 02/18/24) Allergies Active Allergy Reactions Criticality Noted [...] goal to be determined,Coronary artery disease involving [place] coronary artery of crow heart without angina pectoris Take 1 Tablet by mouth every afternoon. 90 Tablet 3 2 Active Potassium Chloride Rhona ER 20 MEQ Oral Tablet Extended Release (Klor-Con M20)Indications:Cor onary artery disease involving [place] coronary artery of [place] heart without angina pectoris,HTN, goal below 140/80 [...] Oral Tablet (Lasix)Indications: Coronary artery disease involving [place] coronary artery of [place] heart without angina pectoris,HTN, goal below 140/80 Take 1 Tablet by mouth in the morning. 90 Tablet 3 3 Active Nitroglycerin 0.4 MG Sublingual Tablet Sublingual (Nitrostat)Indicati ons:Coronary artery disease involving crow heart PLACE 1 TABLET UNDER THE TONGUE [...] collapse 10/31/2014 Coronary artery disease invo lving [place] coronary artery without angina pectoris 10/31/2014 Hematuria, [...] Chest pain 09/28/2012 02/06/2013 [employer] Other*[id number] 09/28/2012 05/12/2016 Overview (09/28/2012): Study Title: Genomic Markers for Patients with Cardiovascular Disease Project # [id number] Regrinder: Jody Grijalva MD [phone] Impacted cerumen 03/01/2012 01/30/2015 Otitis externa, acute [...] PPD 11/19/1998 Pneumococcal Conjugate Vacci ne, 20-valent (Slzusod20) 09/12/2023,09/11/2023(Deferred: Patient Refused - " I want [...] scheduled on 04/03/2024 at 8:30 am at [facility]. LMOM for Alicia to call back to confirm date, time and instructions (wash p/u). DAVID Brady * Telephone Encounter - Karen Mcgovern NRCMA - 03/08/2024 10:43 AM EST Spoke with Alicia to scheduled pt for replacement. Pt was offered 03/16 and that date does not work for them. Pt/Alicia is ask if this can be scheduled for 04/03/24 at [facility]. Will discuss with provider andmake pt aware. DAVID Brady * Telephone Encounter - Karen Mcgovern NRCMA - 03/07/2024 5:03 PM EST Will call pt to discuss date.time. DAVID Brady * Telephone Encounter - Judy Rivas LPN - 03/06/2024 7:37 AM EST Kamryn at [facility] living advised. Aware that EP will be in touch. * Telephone Encounter - Judy Rivas LPN - 03/05/2024 12:53 PM EST Images from the original note were not included. Recent remote from pt's MDT Advisa PPM shows that he met ADOBE LAYER HELPER on 02/18/24. Pt had an EP appt on 02/17/24 to discuss nearing ADOBE LAYER HELPER. Looks like procedure was discuss with some instructions in chart. documented in this encounter Plan of Treatment Upcoming Encounters Date Type Department Care Team (Late st Contact Info) Description 04/03/2024 Hospital Encounter [facility], Operating Room, [facility] - 4th Floor [address] [place] [address] Ashley Quezada DO [address] [place] [address] 04/13/2024 1:00 PM EST Cardiac Studies [facility] [address] [place] [address] [place], [facility] 400 [facility] [place] [address] 03/12/2025 10:00 AM EST Office Visit [facility] [address] [place] [address] Stacie Augustine CRNP [address] [facility] [place] [address] Scheduled Procedures Name Priority Associated Diagnoses Date/Ti [...] Additional history exists CKD PHOS USE SMARTSET 55697 09/09/2024 06/0 10/2023, 09/05/2023, 11/18/2021 CKD HGB USE SMARTSET 12077 09/19/202409/19, 09/13/2023, 09/12/2023, Additional history exists TSH [...] this encounter Medical Devices Implanted Type Area Rating Specialist Device Identifier Shelf Expiration Date Model / Serial / Lot Medtronic Implanted:Qty: 1 on 12/27/2014 by Ashley Quezada, DO at [facility] Right: Chest MEDTRONIC : CRM 11/26/2016 5076-52 / [id number] / 5076-52CM Description:atrial lead Medtronic Ventricular Lead Implanted:Qty: 1 on 12/27/2014 by Ashley Quezada, DO at [facility] Right: Chest MEDTRONIC : KENNEDY 11/01/2016 5076-58 / [id number] / Medtronic Pacer Implanted:Qty: 1 on 12/27/2014 by Ashley Quezada, DO at [facility] Right: Chest Medtrol 05/02/2016 A2DR01 / [id number] / documented as of this encounter Visit Diagnoses Diagnosis Syncope and collapse- Primary Atrioventricular block Atrioventricular block, unspecified Elective replacement indicated for pacemaker Fitting and adjustment of cardiac pacemaker Elective replacement indicated for pacemaker- Primary Fitting and adjustment of cardiac pacemaker Syncope and collapse Atrioventricular block Atrioventricular block, unspecified documented in this encounter Advance Directives Documents on File Type Date Recorded Patient Television Reporter Expl anation Advance Directives and Living Will 09/07/2023 Carolyne Cooper signed on 01/26/2019 Living Will and Health Care Power of Site Acquisition Manager * Full Code (Latest Code Status on [...] Agen t (per Health Care Power of Site Acquisition Manager document) Ginger Cooper Adult Child First Alternate Health Care Agent (per Health Care Power of Site Acquisition Manager document) Care Teams Magnetic Grinder Operator Relationship Specialty Start Date End Date Alek Vera DO [address] [place] [address] PCP - General Family Medicine 02/16/22 documented as of this encounter
--- OUTSIDE RECORDS SUMMARY | 2024-05-09 10:47 | External Medical Summary | Summary of Care ---
Author Name Unknown Organization [facility] Address [address] [place] [address] Phone [phone] Care Team Providers Care Piper Helper Name Role Phone Alek Vera Primary Care Provider [phone] Reason for Visit * Reason Onset Date Comments Pacemaker Check 03/05/2024 ORACLE DATA WAREHOUSE DEVELOPER 02/18/24 Encounter Details Date Type Department Care Team (Late st Contact Info) Description 03/05/2024 Telephone Cardiology, [place] [address] [place] [address] [place] [address] [place] [address] Pacemaker Check (ORACLE DATA WAREHOUSE DEVELOPER 02/18/24) Allergies Active Allergy Reactions Criticality Noted [...] goal to be determined,Coronary artery disease involving [place] coronary artery of [place] heart without angina pectoris Take 1 Tablet by mouth every afternoon. 90 Tablet 3 2 Active Potassium Chloride Rhona ER 20 MEQ Oral Tablet Extended Release (Klor-Con M20)Indications:Cor onary artery disease involving [place] coronary artery of [place] heart without angina pectoris,HTN, goal below 140/80 [...] Oral Tablet (Lasix)Indications: Coronary artery disease involving [place] coronary artery of [place] heart without angina pectoris,HTN, goal below 140/80 Take 1 Tablet by mouth in the morning. 90 Tablet 3 3 Active Nitroglycerin 0.4 MG Sublingual Tablet Sublingual (Nitrostat)Indicati ons:Coronary artery disease involving [place] heart PLACE 1 TABLET UNDER THE TONGUE [...] collapse 10/31/2014 Coronary artery disease invo lving [place] coronary artery without angina pectoris 10/31/2014 Hematuria, [...] Chest pain 09/28/2012 02/06/2013 [employer] Other*[id number] 09/28/2012 05/12/2016 Overview (09/28/2012): Study Title: Genomic Markers for Patients with Cardiovascular Disease Project # [id number] Per Diem Rn: Jody Grijalva MD [phone] Impacted cerumen 03/01/2012 01/30/2015 Otitis externa, acute [...] PPD 11/19/1998 Pneumococcal Conjugate Vacci ne, 20-valent ([id number]) 09/12/2023,09/11/2023(Deferred: Patient Refused - " I want [...] this can be scheduled for 04/03/24 at [facility]. Will discuss with provider andmake pt [...] MDT Advisa PPM shows that he met ORACLE DATA WAREHOUSE DEVELOPER on 02/18/24. Pt had an EP appt on 02/17/24 to discuss nearing ORACLE DATA WAREHOUSE DEVELOPER. Looks like procedure was discuss with some instructions in chart. documented in this encounter Plan of Treatment Upcoming Encounters Date Type Department Care Team (Late st Contact Info) Description 03/12/2025 10:00 AM EST [facility] [address] [place] [address] Stacie Augustine CRNP [address] [place] [address] Scheduled Procedures Name Priority Associated Diagnoses Date/Ti [...] Additional history exists CKD PHOS USE SMARTSET 17051 09/09/2024 06/10/2023, 09/05/2023, 11/18/2021 CKD HGB USE SMARTSET 59003 09/19/202409/19, 09/13/2023, 09/12/2023, Additional history exists TSH [...] this encounter Medical Devices Implanted Type Area Tape Sewer Device Identifier Shelf Expiration Date Model / Serial / Lot Medtronic Implanted:Qty: 1 on 12/27/2014 by Ashley Quezada, DO at OR [facility] Right: Chest MEDTRONIC : CRM 11/26/2016 5076-52 / [id number] / 5076-52CM Description:atrial lead Medtronic Ventricular Lead Implanted:Qty: 1 on 12/27/2014 by Ashley Quezada, DO at OR [facility] Right: Chest MEDTRONIC : CRM 11/01/2016 5076-58 / [id number] / Medtronic Pacer Implanted:Qty: 1 on 12/27/2014 by Ashley Quezada, DO at OR [facility] Right: Chest Medtrol 05/02/2016 A2DR01 / [id number] / documented as of this encounter Advance Directives Documents on File Type Date Recorded Patient Language And Literature Division Chair Expl anation Advance Directives and Living Will 09/07/2023 Carolyne Cooper signed on 01/26/2019 Living Will and Health Care Power of Retirement Benefits Specialist * Full Code (Latest Code Status on [...] Agen t (per Health Care Power of Retirement Benefits Specialist document) Ginger Cooper Adult Child First Alternate Health Care Agent (per Health Care Power of Retirement Benefits Specialist document) Care Teams Piper Helper Relationship Specialty Start Date End Date Alek Vera DO [address] [facility] [place] [address] PCP - General Family Medicine 02/16/22 documented as of this encounter
--- OUTSIDE RECORDS SUMMARY | 2024-05-09 10:47 | External Medical Summary | Summary of Care ---
Author Name Unknown Organization [facility] Address [address] [place] [address] Phone [phone] Care Team Providers Care Radiation Protection Engineer Name Role Phone ChuyAlek pastrana Primary Care Provider [phone] Encounter Details Date Type Department Care Team (Late st Contact Info) Description 02/13/2024 Result Scan Unspecified Department Ashley Quezada DO [address] [place] [address] <No scans attached> Allergies Active Allergy Reactions Criticality Noted Date Comments Cefaclor 11/19/1998 ITCHING Oxycodone 03/24/2012 "Makes me goofy" documented as of this encounter (statuses as of 02/13/2024) Medications TERAZOSIN HCL 10 MG PO CAPS [...] be determined,Coronary artery disease involving [place] coronary artery of [place] heart without angina pectoris Take 1 Tablet by mouth every afternoon. 90 Tablet 3 2 Active Potassium Chloride Rhona ER 20 MEQ Oral Tablet Extended Release (Klor-Con M20)Indications:Cor onary artery disease involving [place] coronary artery of [place] heart without angina pectoris,HTN, goal below 140/80 [...] Tablets by mouth in the morning. Active Bioflex Oral Tablet Take 2 Tablets by mouth in the morning. Active Acetaminophen 325 MG Oral Tablet (Tylenol) Take 2 Tablets by mouth 3 times a day as needed. Active Gabapentin 300 MG Oral Capsule (Neurontin) Take 1 Capsule by mouth at bedtime. 3 Active Furosemide 20 MG Oral Tablet (Lasix)Indications: Coronary artery disease involving [place] coronary artery of [place] heart without angina pectoris,HTN, goal below 140/80 Take 1 Tablet by mouth in the morning. 90 Tablet 3 3 Active Nitroglycerin 0.4 MG Sublingual Tablet Sublingual (Nitrostat)Indicati ons:Coronary artery disease involving [place] heart PLACE 1 TABLET UNDER THE TONGUE [...] as of this encounter (statuses as of 02/13/2024) Active Problems Problem Noted Date Diagnosed Date [...] Coronary artery disease invo lving [place] coronary artery without angina pectoris 10/31/2014 Hematuria, [...] as of this encounter (statuses as of 02/13/2024) Resolved Problems Problem Noted Date Diagnosed Date [...] Chest pain 09/28/2012 02/06/2013 [employer] Other*[id number] 09/28/2012 05/12/2016 Overview (09/28/2012): Study Title: Genomic Markers for Patients with Cardiovascular Disease Project # [id number] Wind Turbine Erector: Jody Grijalva MD [phone] Impacted cerumen 03/01/2012 01/30/2015 Otitis externa, acute [...] as of this encounter (statuses as of 02/13/2024) Immunizations Name Administration Dates Next Due COVID-19 mRNA, LNP-s, No Pre serve, 2-Dose Series (Moderna) 07/20/2020,06/22/2020 Pneumococcal Conjugate Vacci ne, 20-valent ([id number]) 09/12/2023,09/11/2023(Deferred: Patient Refused - " I want [...] 11/17/2021 4:40 AM [facility] Kameron George RN documented as of this encounter Mental Status * Because of a physical, mental, or emotional condition, do you have serious difficulty concentrating, remembering, or making decisions? (5 years old or older) Answer Entry Date Author No 11/17/2021 4:40 AM EDT Kameron George RN documented in this encounter Plan of Treatment Upcoming Encounters Date Type Department Care Team (Late st Contact Info) Description 02/17/2024 10:15 AM EST Office Visit Cardiology, [place] [address] [place] [address] [place] [address] Ashley Quezada, [address] [place] [address] Scheduled Procedures Name Priority Associated Diagnoses Date/Ti [...] Additional history exists CKD PHOS USE SMARTSET 37255 09/09/2024 06/10/2023, 09/05/2023, 11/18/2021 CKD HGB USE SMARTSET 05379 09/19/202409/19, 09/13/2023, 09/12/2023, Additional history exists TSH [...] this encounter Medical Devices Implanted Type Area Spinning Supervisor Device Identifier Shelf Expiration Date Model / Serial / Lot Medtronic Implanted:Qty: 1 on 12/27/2014 by Ashley Quezada, DO at OR [facility] Right: Chest MED[employer] : CRM 11/26/2016 5076-52 / [id number] / 5076-52CM Description:atrial lead Medtronic Ventricular Lead Implanted:Qty: 1 on 12/27/2014 by Ashley Quezada, DO at OR [facility] Right: Chest MEDTR[employer] : CRM 11/01/2016 5076-58 / [id number] / Medtronic Pacer Implanted:Qty: 1 on 12/27/2014 by Ashley Quezada, DO at OR [facility] Right: Chest Medtrol 05/02/2016 A2DR01 / [id number] / documented as of this encounter Procedures Procedure Name Priority Date/Time Associated Diagnosis Comments CARDIOLOGY SCANNED RESULT 02/13/2024 documented in this encounter Results * CARDIOLOGY SCANNED RESULT (02/13/2024) 02/13/2024 Ashley Quezada DO OTHER Final R esult documented in this encounter Advance Directives Documents on File Type Date Recorded Patient International Sourcing Manager Expl anation Advance Directives and Living Will 09/07/2023 Carolyne Cooper signed on 01/26/2019 Living Will and Health Care Power of Auto Body Detailer * Full Code (Latest Code Status on [...] Agen t (per Health Care Power of Auto Body Detailer document) Ginger Cooper Adult Child First Alternate Health Care Agent (per Health Care Power of Auto Body Detailer document) Care Teams Radiation Protection Engineer Relationship Specialty Start Date End Date Alek Vera DO [address] [place] [address] PCP - General Family Medicine 02/16/22 documented as of this encounter
--- OUTSIDE RECORDS SUMMARY | 2024-05-09 10:47 | External Medical Summary | Summary of Care ---
Author Name Unknown Organization [facility] Address [address] [place] [address] Phone [phone] Care Team Providers Care Gluing Machine Feeder Name Role Phone ChuyAlek pastrana Primary Care Provider [phone] Reason for Visit * Reason Onset Date Comments Patient Instructions 02/17/2024 Encounter Details Date Type Department Care Team (Late st Contact Info) Description 02/17/2024 Telephone Cardiology, [place] [address] [place] [address] Ashley Quezada [address] [place] [address] Patient Instructions Allergies Active Allergy Reactions Criticality Noted Date Comments Cefaclor 11/19/1998 ITCHING Oxycodone 03/24/2012 "Makes me goofy" documented as of this encounter (statuses as of 02/17/2024) Medications TERAZOSIN HCL 10 MG PO CAPS [...] goal to be determined,Coronary artery disease involving [place] coronary artery of [place] heart without angina pectoris Take 1 Tablet by mouth every afternoon. 90 Tablet 3 2 Active Potassium Chloride Rhona ER 20 MEQ Oral Tablet Extended Release (Klor-Con M20)Indications:Cor onary artery disease involving [place] coronary artery of [place] heart without angina pectoris,HTN, goal below 140/80 [...] Oral Tablet (Lasix)Indications: Coronary artery disease involving [place] coronary artery of [place] heart without angina pectoris,HTN, goal below 140/80 Take 1 Tablet by mouth in the morning. 90 Tablet 3 3 Active Nitroglycerin 0.4 MG Sublingual Tablet Sublingual (Nitrostat)Indicati ons:Coronary artery disease involving [place] heart PLACE 1 TABLET UNDER THE TONGUE [...] the skin once a week. 4 Active Apixaban 5 MG Oral Tablet (Eliquis) Take 2 Tablets by mouth 2 times a day for 6 days, THEN 1 Tablet 2 times a day for 24 days. 72 Tablet 4 02/17/20 24 Active Tresiba FlexTouch 200 UNIT/ML Subcutaneous [...] as of this encounter (statuses as of 02/17/2024) Active Problems Problem Noted Date Diagnosed Date [...] collapse 10/31/2014 Coronary artery disease invo lving [place] coronary artery without angina pectoris 10/31/2014 Hematuria, [...] as of this encounter (statuses as of 02/17/2024) Resolved Problems Problem Noted Date Diagnosed Date [...] Chest pain 09/28/2012 02/06/2013 [employer] Other*[id number] 09/28/2012 05/12/2016 Overview (09/28/2012): Study Title: Genomic Markers for Patients with Cardiovascular Disease Project # [id number] Correction Worker: Jody Grijalva MD [phone] Impacted cerumen 03/01/2012 01/30/2015 Otitis externa, acute [...] as of this encounter (statuses as of 02/17/2024) Immunizations Name Administration Dates Next Due COVID-19 mRNA, LNP-s, No Pre serve, 2-Dose Series (Moderna) 07/20/2020,06/22/2020 Pneumococcal Conjugate Vacci ne, 20-valent ([id number]) 09/12/2023,09/11/2023(Deferred: Patient Refused - " I want [...] Telephone Encounter - Marylou Mcgovern NRCMA - 02/17/2024 11:23 AM EST Device Instructions Procedure Date: Time: For: Dual chamber pacemaker replacement Location: [facility], [address] [place] [address] Patient/Family member was notified via written instructions given at office visit. Nothing to eat or drink after midnight, You may have clear liquids 4 hours prior to procedure No caffeine 24 hours prior to procedure No tobacco products after midnight Arrive at the time given to you by the PAT dept and check in at the registration desk. Aproximate time: The hospital will call you the evening before & give you exact time. This is an estimated arrival time. Please follow what they tell you when they call. Meds to hold AM of procedure include- tresiba, Novolog, Lasix, Mounjaro, jardiance, Eliquis and anyover the counter vitamins, Fish oil and/or Vit E. Meds to adjust the pm prior to the procedure including: Do Not take eliquis. Eliquis Instruction: Stop med two doses prior to the procedure. Last dose is Pt may take all other medications regularly scheduled that morning including aspirin and Plavix. Additional labs or testing needed: Bring all of your medications with you in their original containers. Use Chlorhexidine wash the evening prior to and the morning of the procedure. Follow instructions given with the wash. You may remain at [facility] Overnight for observation. Wound check in [facility] [place] [facility] with Clinic Nurse is scheduled for . Your wound is NOT PERMITTED to get wet in any way while site is covered by bandage. You are unable to shower/swim/hot tub until given permission by clinic nurse in the office. Call Becky at [phone] with any questions or concerns. documented in this encounter Plan of Treatment Scheduled Procedures Name Priority Associated Diagnoses Date/Ti [...] Additional history exists CKD PHOS USE SMARTSET 78365 09/09/2024 06/0 10/2023, 09/05/2023, 11/18/2021 CKD HGB USE SMARTSET 38240 09/19/202409/19, 09/13/2023, 09/12/2023, Additional history exists TSH [...] this encounter Medical Devices Implanted Type Area User Acceptance Tester Device Identifier Shelf Expiration Date Model / Serial / Lot Medtronic Implanted:Qty: 1 on 12/27/2014 by Ashley Quezada, DO at OR [facility] Right: Chest MEDTRONIC : [place] 11/26/2016 5076-52 / [id number] / 5076-52CM Description:atrial lead Medtronic Ventricular Lead Implanted:Qty: 1 on 12/27/2014 by Ashley Quezada, DO at OR [facility] Right: Chest MEDTRONIC : [place]Y 11/01/2016 5076-58 / [id number] / Medtronic Pacer Implanted:Qty: 1 on 12/27/2014 by Ashley Quezada, DO at OR [facility] Right: Chest Medtrol 05/02/2016 A2DR01 / [id number] / documented as of this encounter Advance Directives Documents on File Type Date Recorded Patient Side Stitcher Expl anation Advance Directives and Living Will 09/07/2023 Carolyne Cooper signed on 01/26/2019 Living Will and Health Care Power of Passenger Representative * Full Code (Latest Code Status on [...] Agen t (per Health Care Power of Passenger Representative document) Ginger Cooper Adult Child First Alternate Health Care Agent (per Health Care Power of Passenger Representative document) Care Teams Gluing Machine Feeder Relationship Specialty Start Date End Date Alek Vera DO [address] [place] [address] PCP - General Family Medicine 02/16/22 documented as of this encounter
--- OUTSIDE RECORDS SUMMARY | 2024-05-09 10:47 | External Medical Summary | Summary of Care ---
Author Name Unknown Organization [facility] Address [address] [place] [address] Phone [phone] Care Team Providers Care Fabrication Supervisor Name Role Phone Alek Vera Primary Care Provider [phone] Reason for Visit * Reason Onset Date Comments Pacemaker Check 03/05/2024 COAGULATING OPERATOR 02/18/24 Encounter Details Date Type Department Care Team (Late st Contact Info) Description 03/05/2024 Telephone Cardiology, [place] [address] [place] [address] [place] [address] [place] [address] Pacemaker Check (COAGULATING OPERATOR 02/18/24) Allergies Active Allergy Reactions Criticality Noted Date Comments Cefaclor 11/19/1998 ITCHING Oxycodone 03/24/2012 "Makes me goofy" documented as of this encounter (statuses as of 03/07/2024) Medications TERAZOSIN HCL 10 MG PO CAPS [...] goal to be determined,Coronary artery disease involving [place] coronary artery of [place] heart without angina pectoris Take 1 Tablet by mouth every afternoon. 90 Tablet 3 2 Active Potassium Chloride Rhona ER 20 MEQ Oral Tablet Extended Release (Klor-Con M20)Indications:Cor onary artery disease involving [place] coronary artery of [place] heart without angina pectoris,HTN, goal below 140/80 [...] Oral Tablet (Lasix)Indications: Coronary artery disease involving [place] coronary artery of [place] heart without angina pectoris,HTN, goal below 140/80 Take 1 Tablet by mouth in the morning. 90 Tablet 3 3 Active Nitroglycerin 0.4 MG Sublingual Tablet Sublingual (Nitrostat)Indicati ons:Coronary artery disease involving [place] heart PLACE 1 TABLET UNDER THE TONGUE [...] as of this encounter (statuses as of 03/07/2024) Active Problems Problem Noted Date Diagnosed Date [...] collapse 10/31/2014 Coronary artery disease invo lving [place] coronary artery without angina pectoris 10/31/2014 Hematuria, [...] as of this encounter (statuses as of 03/07/2024) Resolved Problems Problem Noted Date Diagnosed Date [...] Chest pain 09/28/2012 02/06/2013 [employer] Other*[id number] 09/28/2012 05/12/2016 Overview (09/28/2012): Study Title: Genomic Markers for Patients with Cardiovascular Disease Project # [id number] Belt Back Operator: Jody Grijalva MD [phone] Impacted cerumen 03/01/2012 01/30/2015 Otitis externa, acute [...] as of this encounter (statuses as of 03/07/2024) Immunizations Name Administration Dates Next Due COVID-19 mRNA, LNP-s, No Pre serve, 2-Dose Series (Moderna) 07/20/2020,06/22/2020 Pneumococcal Conjugate Vacci ne, 20-valent ([id number]) 09/12/2023,09/11/2023(Deferred: Patient Refused - " I want [...] MDT Advisa PPM shows that he met COAGULATING OPERATOR on 02/18/24. Pt had an EP appt on 02/17/24 to discuss nearing COAGULATING OPERATOR. Looks like procedure was discuss with some instructions in chart. documented in this encounter Plan of Treatment Upcoming Encounters Date Type Department Care Team (Late st Contact Info) Description 03/12/2025 10:00 AM EST Office Visit Cardiology, [place] [address] [place] [address] Stacie Augustine CRNP [address] [place] [address] Scheduled Procedures Name Priority Associated Diagnoses Date/Ti [...] Additional history exists CKD PHOS USE SMARTSET 83252 09/09/2024 06/10/2023, 09/05/2023, 11/18/2021 CKD HGB USE SMARTSET 86552 09/19/202409/19, 09/13/2023, 09/12/2023, Additional history exists TSH [...] this encounter Medical Devices Implanted Type Area Chemical Operations And Training Device Identifier Shelf Expiration Date Model / Serial / Lot Medtronic Implanted:Qty: 1 on 12/27/2014 by Ashley Quezada DO at OR [facility] Right: Chest MEDTR[employer] : CRM 11/26/2016 5076-52 / [id number] / 5076-52CM Description:atrial lead Medtronic Ventricular Lead Implanted:Qty: 1 on 12/27/2014 by Ashley Quezada, DO at OR [facility] Right: Chest [employer] : CRM 11/01/2016 5076-58 / [id number] / Medtronic Pacer Implanted:Qty: 1 on 12/27/2014 by Ashley Quezada, DO at OR [facility] Right: Chest Medtrol 05/02/2016 A2DR01 / [id number] / documented as of this encounter Advance Directives Documents on File Type Date Recorded Patient Electric Meter Repairer Apprentice Expl anation Advance Directives and Living Will 09/07/2023 Carolyne Cooper signed on 01/26/2019 Living Will and Health Care Power of Acidizer Helper * Full Code (Latest Code Status [...] Carolyne Ck Adult Child Health Care Agen dylon (per Health Care Power of Acidizer Helper document) Ginger House Adult Child First Alternate Health Care Agent (per Health Care Power of Acidizer Helper document) Care Teams Fabrication Supervisor Relationship Specialty Start Date End Date Alek Vera DO [address] [place], [place] [id number] PCP - General Family Medicine 02/16/22 documented as of this encounter
--- OUTSIDE RECORDS SUMMARY | 2024-05-09 10:47 | External Medical Summary | Summary of Care ---
Author Name Unknown Organization [facility] Address [address] [place] [address] Phone [phone] Care Team Providers Care Production Wood Craftsman Name Role Phone ChuyAlek pastrana Primary Care Provider [phone] Encounter Details Date Type Department Care Team (Late st Contact Info) Description 02/01/2024 Result Scan Unspecified Department Ashley Quezada DO [address] [place] [address] <No scans attached> Allergies Active Allergy Reactions Criticality Noted Date Comments Cefaclor 11/19/1998 ITCHING Oxycodone 03/24/2012 "Makes me goofy" documented as of this encounter (statuses as of 02/01/2024) Medications Medication Sig Dispensed Refills Start Date End Date Status TERAZOSIN HCL 10 MG PO CAPS Take 1 Capsule by mouth at bedtime. 0 11/15/2008 Active ASPIRIN 81 MG PO CHEWIndications:Diaphr agmatic hernia,Lipoma of unspecified site,Benign paroxysmal vertigo,Pulsatile tinnitus,Polyneuropath y in diabetes(357.2),ADVANC E DIRECTIVE INFORMATION,DM type 2, goal A1c below 7,Dyslipidemia, goal LDL below 100,Chronic venous hypertension with inflammation,HTN, goal below 140/80,Impacted cerumen,Otitis externa, acute,Otitis externa, chronic,Hearing loss,Snoring disorder,Esophageal reflux,Chronic rhinitis,HTN, goal to be determined,Acute myocardial infarction, subendocardial infarction, episode of care unspecified,INTERFACED RESULT 1 Tab Oral Daily 30 Tab 3 09/29/2012 Active levothyroxine (LEVOXYL) 100 MCG Tablet Take 1 Tablet by mouth daily first thing in the morning. Active Calcitriol 0.5 MCG Oral Capsule (Rocaltrol) Take 1 Capsule by mouth in the morning. 12/24/2020 Active Atorvastatin Calcium 80 MG Oral Tablet (Lipitor)Indications:D yslipidemia, goal LDL below 100,HTN, goal to be determined,Coronary artery disease involving grand traverse coronary artery of grand traverse heart without angina pectoris Take 1 Tablet by mouth every afternoon. 90 Tablet 3 04/25/2021 Active Potassium Chloride Rhona ER 20 MEQ Oral Tablet Extended Release (Klor-Con M20)Indications:Ceballos ry artery disease involving grand traverse coronary artery of grand traverse heart without angina pectoris,HTN, goal below 140/80 Take 1 Tablet by mouth daily. 90 Tablet 3 04/25/2021 Active Jardiance 25 MG Oral Tablet Take 1 Tablet by mouth in the morning. 07/11/2021 Active Magnesium Oxide 400 MG Oral Tablet TAKE 1 TAB BY MOUTH TWICE A DAY 06/11/2021 Active Sertraline HCl 50 MG Oral Tablet Take 1.5 Tablets by mouth in the morning. Active Bioflex Oral Tablet Take 2 Tablets by mouth in the morning. Active Acetaminophen 325 MG Oral Tablet (Tylenol) Take 2 Tablets by mouth 3 times a day as needed. Active Gabapentin 300 MG Oral Capsule (Neurontin) Take 1 Capsule by mouth at bedtime. 07/16/2022 Active Furosemide 20 MG Oral Tablet (Lasix)Indications:Cor onary artery disease involving grand traverse coronary artery of grand traverse heart without angina pectoris,HTN, goal below 140/80 Take 1 Tablet by mouth in the morning. 90 Tablet 3 08/28/2022 Active Nitroglycerin 0.4 MG Sublingual Tablet Sublingual (Nitrostat)Indications :Coronary artery disease involving grand traverse heart PLACE 1 TABLET UNDER THE TONGUE AND ALLOW TO DISSOLVE EVERY 5 MINUTES NEEDED FOR CHEST PAIN. (MAXIMUM 3 TABLETS. IF CHEST PAIN IS NOT RELIEVED, CALL 911) 25 Tablet 3 08/28/2022 Active Pantoprazole Sodium 40 MG Oral Tablet Delayed Release (Protonix)Indications: Dyslipidemia, goal LDL below 100,HTN, goal to be determined,HTN, goal below 140/80,Diaphragmatic hernia,Type 2 diabetes mellitus with hemoglobin A1c goal of less than 7.0% (HCC),Chronic venous hypertension with inflammation,Impacted cerumen,Otitis externa, acute,Otitis externa, chronic,Hearing loss,Esophageal reflux,Chronic rhinitis,Unstable angina (HCC) Take 1 Tablet by mouth in the morning. 90 Tablet 3 08/28/2022 Active Mounjaro 5 MG/0.5ML Subcutaneous Solution Pen-injector Inject 5 mg under the skin once a week. 07/07/2023 Active Tresiba FlexTouch 200 UNIT/ML Subcutaneous Solution Pen-injector Inject 30 Units under the skin in the morning. 5 Each 09/11/2023 Active NovoLOG FlexPen 100 UNIT/ML Subcutaneous Solution Pen-injector Consult sliding scale with meals and before bedtime 1 Each 09/11/2023 Active Metoprolol Succinate ER 50 MG Oral Tablet Extended Release 24 Hour (toPROL XL) Take 1 Tablet by mouth in the morning and 1 Tablet before bedtime. 60 Tablet 09/11/2023 Active Polyethylene Glycol 3350 17 GM Oral Packet (Miralax) Take 1 Packet by mouth in the morning. Hold for loose stool. 14 Each 09/11/2023 Active Losartan Potassium-HCTZ 100-25 MG Oral Tablet (Hyzaar)Indications:HT N, goal below 140/80 Take 1 Tablet by mouth in the morning. 90 Tablet 3 09/11/2023 Active documented as of this encounter (statuses as of 02/01/2024) Active Problems Problem Noted Date Diagnosed Date Leg DVT (deep venous thromboembolism), acute, ri ght 09/09/2023 Generalized weakness 09/09/2023 On mechanically assisted ventilation 09/07/2023 Pulmonary embolism 11/17/2021 Stage 3b chronic kidney disease 11/12/2021 Stasis dermatitis of both legs 03/06/2015 Overview: ICD10 Atrioventricular block 01/16/2015 Cardiac pacemaker in situ 01/16/2015 BPH without obstruction/lower urinary tract symp toms 12/18/2014 Syncope and collapse 10/31/2014 Coronary artery disease invo lving grand traverse coronary artery without angina pectoris 10/31/2014 Hematuria, gross 2014 Chronic coronary artery disease 03/12/2014 S/P primary angioplasty with coronary stent 10/03 Dyslipidemia, goal LDL below 70 10/21/2012 Hearing loss 03/01/2012 Snoring 03/01/2012 Overview: ICD-10 update of inactive term Esophageal reflux 03/01/2012 Chronic rhinitis 03/01/2012 HTN, goal below 140/80 11/23/2011 Overview: Per HTN Protocol #27. Dyslipidemia, goal LDL below 100 03/14/2009 Overview: Per Lipid Taxonomy. Type 2 diabetes mellitus wit h hemoglobin A1c goal of less than 7.0% 01/31/2009 Overview: Per Diabetes Taxonomy. ICD-10 update of inactive term ADVANCE DIRECTIVE INFORMATION 05/18/2005 Overview: No, Advance Directive brochure given to patient. Diabetic polyneuropathy 08/11/2001 Overview: ICD-10 update of inactive term BENIGN PARXYSMAL VERTIGO 02/07/2001 PULSATILE TINNITUS 02/07/2001 Lipoma 02/04/2001 Overview: ICD-10 update of inactive term SYNDROME X 11/15/2000 Diaphragmatic hernia documented as of this encounter (statuses as of 02/01/2024) Resolved Problems Problem Noted Date Diagnosed Date [...] Chest pain 09/28/2012 02/06/2013 [employer] Other*[id number] 09/28/2012 05/12/2016 Overview: Study Title: Genomic Markers for Patients with Cardiovascular Disease Project # [id number] Sterile Preparation Technician: Jody Grijalva MD [phone] Kevan villagomezn 03/01/2012 01/30/2015 Otitis externa, acute 03/01/20122014 Otitis externa, chronic 03/01/201201/04 Stasis Dermatitis 06/30/2010 03/06/2015 Obesity, morbid (more than 1 00 lbs over ideal weight or BMI > 40) 09/17/2009 10/21/2012 Overview: Per Obesity Protocol, #19 ICD-10 update of inactive term HTN, GOAL BELOW 130/80 02/26/200911/25 Overview: Modified per HTN protocol #16. Type 2 diabetes mellitus wit h hemoglobin A1c goal of less than 7.0% 01/31/2009 Overview: Per Diabetes Taxonomy. ICD-10 update of inactive term HYPERTENSION NOS 02/26/2009 Overview: Modified per HTN protocol #16. HYPERLIPIDEMIA NEC-NOS 03/14 Overview: Per Lipid Taxonomy. documented as of this encounter (statuses as of 02/01/2024) Immunizations Name Administration Dates Next Due COVID-19 mRNA, LNP-s, No Pre serve, 2-Dose Series (Moderna) 07/20/2020,06/22/2020 Pneumococcal Conjugate Vacci ne, 20-valent ([id number]) 09/12/2023,09/11/2023(Deferred: Patient Refused - " I want [...] = 0.6 oz pur e alcohol) occasionally Utilities Answer Date Recorded Do you have trouble paying y our heating, water, or electric bill? (Adult - for ages 18 years and over) Not on file 09/21/2023 Is your family able to pay t he heat, water, or electric bill? (Household - for ages 0-17 years) Not on file 09/21/2023 Does your family have access to good internet? (Household - for ages 0-17 years) Not on file 09/21/2023 Social Connections Answer Date Recorded How often do you feel lonely or isolated from those around you? (Adult - for ages 18 years and over) Not on file 09/21/2023 Sex and Gender Information Value Date Recorded Sex Assigned at Not on file Gender Identity Not on file Sexual Orientation Not on file Job Start Date Occupation Industry Not on file Not on file Not on file documented as of this encounter Functional Status Functional Status Response Date of Assess ment Are you deaf or do you have serious difficulty h earing? No 11/17/2021 Are you blind or do you have serious difficulty seeing, even when wearing glasses? No 11/17/2021 Do you have serious difficul ty walking or climbing stairs? (5 years old or older) Yes 11/17/2021 Do you have difficulty dress ing or bathing? (5 years old or older) Yes 11/17/2021 Because of a physical, menta l, or emotional condition, do you have difficulty doing errands alone such as visiting a doctor s office or shopping? (15 years old or older) Yes 11/18/19 Cognitive Status Response Date of Assessm ent Because of a physical, menta l, or emotional condition, do you have serious difficulty concentrating, remembering, or making decisions? (5 years old or older) No 11/17/2021 documented as of this encounter Plan of Treatment Upcoming Encounters Date Type Department Care Team (Late st Contact Info) Description 02/17/2024 3:15 PM EST [facility] [address] [address] Ashley Quezada DO [address] [address] Scheduled Procedures Name Priority Associated Diagnoses Date/Ti [...] Additional history exists CKD PHOS USE SMARTSET 31541 09/09/2024 06/0 10/2023, 09/05/2023, 11/18/2021 CKD HGB USE SMARTSET 04970 09/19/202409/19, 09/13/2023, 09/12/2023, Additional history exists TSH [...] this encounter Medical Devices Implanted Type Area Support Representative Device Identifier Shelf Expiration Date Model / Serial / Lot Medtronic Implanted:Qty: 1 on 12/27/2014 by Ashley Quezada, DO at OR [facility] Right: Chest MEDTRON[employer] : CRM 11/26/2016 5076-52 / [id number] / 5076-52CM Description:atrial lead Medtronic Ventricular Lead Implanted:Qty: 1 on 12/27/2014 by Ashley Quezada, DO at OR [facility] Right: Chest [employer] : CRM 11/01/2016 5076-58 / [id number] / Medtronic Pacer Implanted:Qty: 1 on 12/27/2014 by Ashley Quezada, DO at OR [facility] Right: Chest Medtrol 05/02/2016 [id number] / [id number] / documented as of this encounter Procedures Procedure Name Priority Date/Time Associated Diagnosis Comments CARDIOLOGY SCANNED RESULT 02/01/2024 documented in this encounter Results * CARDIOLOGY SCANNED RESULT (02/01/2024) 02/01/2024 Ashley Quezada DO OTHER documented in this encounter Advance Directives Documents on File Type Date Recorded Patient Tubing Machine Tender Expl anation Advance Directives and Living Will 09/07/2023 Carolyne Cooper signed on 01/26/2019 Living Will and Health Care Power of Mission Coordinator * Full Code (Latest Code Status on [...] Agen t (per Health Care Power of Mission Coordinator document) Ginger Cooper Adult Child First Alternate Health Care Agent (per Health Care Power of Mission Coordinator document) Care Teams Production Wood Craftsman Relationship Specialty Start Date End Date Alek Vera DO [address] [place] [address] PCP - General Family Medicine 02/16/22 documented as of this encounter
--- OUTSIDE RECORDS SUMMARY | 2024-05-09 10:47 | External Medical Summary | Summary of Care ---
Author Name Unknown Organization [facility] Address [address] [place] [address] Phone [phone] Care Team Providers Care Rail Transportation Tabeler Name Role Phone Alek Vera Primary Care Provider [phone] Reason for Visit * Reason Onset Date Comments Advice 02/02/2024 [facility] Encounter Details Date Type Department Care Team ([facility] st Contact Info) Description 02/02/2024 Telephone Cardiology, [place] [address] [place] [address] [facility] [address] [place] [address] Advice ([facility]) Allergies Active Allergy Reactions Criticality Noted Date Comments Cefaclor 11/19/1998 ITCHING Oxycodone 03/24/2012 "Makes me goofy" documented as of this encounter (statuses as of 02/02/2024) Medications Medication Sig Dispensed Refills Start Date [...] goal to be determined,Coronary artery disease involving king salmon coronary artery of king salmon heart without angina pectoris Take 1 Tablet by mouth every afternoon. 90 Tablet 3 04/25/2021 Active Potassium Chloride Rhona ER 20 MEQ Oral Tablet Extended Release (Klor-Con M20)Indications:Ceballos ry artery disease involving king salmon coronary artery of king salmon heart without angina pectoris,HTN, goal below 140/80 [...] Oral Tablet (Lasix)Indications:Cor onary artery disease involving king salmon coronary artery of king salmon heart without angina pectoris,HTN, goal below 140/80 Take 1 Tablet by mouth in the morning. 90 Tablet 3 08/28/2022 Active Nitroglycerin 0.4 MG Sublingual Tablet Sublingual (Nitrostat)Indications :Coronary artery disease involving king salmon heart PLACE 1 TABLET UNDER THE TONGUE [...] as of this encounter (statuses as of 02/02/2024) Active Problems Problem Noted Date Diagnosed Date [...] collapse 10/31/2014 Coronary artery disease invo lving king salmon coronary artery without angina pectoris 10/31/2014 Hematuria, [...] as of this encounter (statuses as of 02/02/2024) Resolved Problems Problem Noted Date Diagnosed Date [...] Chest pain 09/28/2012 02/06/2013 [employer] Other*[id number] 09/28/2012 05/12/2016 Overview: Study Title: Genomic Markers for Patients with Cardiovascular Disease Project # [id number] Electrical Electronics Engineer: Jody Grijalva MD [phone] Impacted cerumen 03/01/2012 01/30/2015 Otitis externa, acute [...] as of this encounter (statuses as of 02/02/2024) Immunizations Name Administration Dates Next Due COVID-19 mRNA, LNP-s, No Pre serve, 2-Dose Series (Moderna) 07/20/2020,06/22/2020 Pneumococcal Conjugate Vacci ne, 20-valent ([id number]) 09/12/2023,09/11/2023(Deferred: Patient Refused - " I want [...] No 11/17/2021 documented as of this encounter Miscellaneous Notes * Telephone Encounter - Sylvie Grimm RN - 02/02/2024 2:56 PM EDT Pt contacted and notified remote was received. Sylvie Grimm RN * Telephone Encounter - Shelby Calderon OSA - 02/02/2024 1:58 PM EDT Person calling: Gerry Gambino Relationship to patient: Self Phone/Fax to return call: [phone] Reason for call(brief): Advice Pharmacy: n/a Provider Name: [facility] Detailed message to office: Randee, Patient called to confirm if BJ received the transmission he sent from his device. Attempted to transfer to clinic, unsuccessful. Please advise. Thank you, VIRGEN Lozoya documented in this encounter Plan of Treatment Upcoming Encounters Date Type Department Care Team (Late st Contact Info) Description 02/17/2024 3:15 PM EST Office Visit Cardiology, [place] [address] [place] [address] [address] [address] Ashley Quezada, [address] [place] [place] [address] Scheduled Procedures Name Priority Associated Diagnoses Date/Ti [...] Additional history exists CKD PHOS USE SMARTSET 67721 09/09/2024 06/0 10/2023, 09/05/2023, 11/18/2021 CKD HGB USE SMARTSET 74416 09/19/202409/19, 09/13/2023, 09/12/2023, Additional history exists TSH [...] this encounter Medical Devices Implanted Type Area Tooling Engineer Device Identifier Shelf Expiration Date Model / Serial / Lot Medtronic Implanted:Qty: 1 on 12/27/2014 by Ashley Quezada DO at OR [facility] Right: Chest [employer] : [place] 11/26/2016 5076-52 / [id number] / [id number] Description:atrial lead Medtronic Ventricular Lead Implanted:Qty: 1 on 12/27/2014 by Ashley Quezada DO at OR [facility] Right: Chest [employer] : CRM 11/01/2016 5076-58 / [id number] / Medtronic Pacer Implanted:Qty: 1 on 12/27/2014 by Ashley Quezada DO at OR [facility] Right: Chest Medtrol 05/02/2016 A2DR01 / [id number] / documented as of this encounter Advance Directives Documents on File Type Date Recorded Patient Rotating Equipment Engineer Expl anation Advance Directives and Living Will 09/07/2023 Carolyne Cooper signed on 01/26/2019 Living Will and Health Care Power of Cigarette Machine Operator * Full Code (Latest Code Status on File) Date Activated Date Inactivated Comments 09/06/2023 1:16 AM 09/12/2023 3:24 PM This order ref lects the patients wishes and were consensually agreed upon. Question Answer Comments Discussion of Advance Directives occurred with: Family Does the patient have a Living Will? No Does the patient have Health Care Power of Attor ayron? No * Full Code Date Activated Date [...] Agen t (per Health Care Power of Cigarette Machine Operator document) Ginger Cooper Adult Child First Alternate Health Care Agent (per Health Care Power of Cigarette Machine Operator document) Care Teams Rail Transportation Tabeler Relationship Specialty Start Date End Date Alek Vera DO [address] [place] [address] PCP - General Family Medicine 02/16/22 documented as of this encounter
--- NOTE | 2024-05-09 10:51 | CT Scan Report ---
ABDOMEN AND PELVIS CT WITHOUT CONTRAST CT DOSE: 1535.51 mGy.cm HISTORY: abn lft's TECHNIQUE: Multiaxial CT images of the abdomen and pelvis were performed without contrast. A dose lo wering technique was utilized adhering to the principles of ALARA. COMPARISON STUDY: 05/28/2021 FINDINGS: ABDOMEN: There is mild fatty liver. Gallbladder is surgically absent. Otherwise the liver, spleen, pa ncreas, and adrenal glands are unremarkable. Kidneys show no hydronephrosis. There are scattered athe rosclerotic calcifications. No abdominal aortic aneurysm. Stable tiny cyst inferior pole left kidney. Pelvis: Stable small fat-containing periumbilical hernia. Prostate is mildly enlarged. Urinary bladde r is nondistended. There is mild retained stool. No bowel inflammation or obstruction. No free fluid, free air, or abscess. No enlarged adenopathy. Osseous structures: There is severe lower lumbar degenerative disc disease with Schmorl's nodes at L3 -4 and L4-5. IMPRESSION: 1. No acute findings. 2. Mild fatty liver. 3. Otherwise as described. ACT 112: Negative or not required by law. The above report was generated using voice recognition software. It may contain grammatical, syntax o r spelling errors. Electronically signed by: Artie Wei M.D. 05/09/2024 10:49 AM
[2024-05-09] MEDS: SODIUM CHLORIDE 0.9% 500 ML IV ONE (11:13)
[2024-05-09 11:47] LABS: Appearance Urine Cloudy (Clear); Bacteria Urine Automated None Seen (None Seen); Bilirubin Urine 1+ (Negative); Blood Urine 1+ (Negative); Color Urine Dark Yellow; Epithelial Cell Urine Auto 0-2 /hpf (0-2); Glucose Urine UA 3+ (Negative); Ketones Urine Negative (Negative); Leukocyte Esterase Urine Negative (Negative); Nitrite Urine Negative (Negative); Protein Urine 2+ (Negative); RBC Urine Automated 0-2 /hpf (0-2); Specific Gravity Urine 1.016 (1.000-1.030); Urobilinogen Urine Negative (Negative); WBC Urine Automated 0-5 /hpf (0-5); pH Urine 5.5 (4.5-7.5)
--- NOTE | 2024-05-09 13:05 | Electrocardiogram Report ---
Test Reason : Blood Pressure : */* mmHG Vent. Rate : 67 BPM Atrial Rate : 67 BPM P-R Int : 184 ms QRS Dur : 188 ms QT Int : 498 ms P-R-T Axes : 85 -87 85 degrees QTcB Int : 526 ms Atrial-sensed ventricular-paced rhythm Abnormal ECG When compared with ECG of 10-Dec-2023 18:30, Electronic ventricular pacemaker has replaced Sinus rhythm Confirmed by Valeriano Martinez ([id number]) on 05/09/2024 1:05:16 PM [facility] Confirmed By: Valeriano Martinez
--- NOTE | 2024-05-09 13:46 | Ultrasound Report ---
US abdomen limited HISTORY: abn lft's. COMPARISON: CT scan earlier today FINDINGS: Pancreas is not well seen due to overlying bowel gas artifact. Liver measures 19 cm. Portio ns of the liver are not well seen. Liver is grossly unremarkable. Common bile duct measures normal di ameter of 4 mm. Gallbladder is surgically absent. There is normal direction of flow in the portal vei n. Right kidney shows no hydronephrosis. IMPRESSION: Limited but grossly unremarkable exam. ACT 112: Negative or not required by law. Electronically signed by: Artie Wei M.D. 05/09/2024 1:45 PM
--- NOTE | 2024-05-09 14:16 | Communication Note ---
Date of Service: May 09, 2024 Dr. Zuleta of Gastroenterology was contacted from the ED regarding this patient with painless jaundice and abnormal LFTs. T bili is 6.5, D bili 4.3, AST 246, ALT 100, Alk phos 1249. Patient had CT imaging without contrast that did not indicate any acute concerns. An US was technically limited, but did not yield findings. Given this, Dr. Zuleta has recommended the patient have close outpatient follow-up for further evaluation. We have placed orders for further serologic testing to include iron studies, AMA, ASMA, JILLIAN, hepatitis studies. Our office will be in contact to arrange a contrast enhanced CT imaging study for further evaluation of the painless jaundice as well as the abnormal LFTs. Will communicate these recommendations to the patient's ED care team.
--- NOTE | 2024-05-09 14:18 | Gastrointestinal Consultation ---
Date of Consultation May 09, 2024 Assessment & Plan (1) Jaundice: Painless jaundice with predominantly obstructive enzymes. Concerning for a primary biliary or pancreas source. However image study does not show an obvious lesion. The CT was noncontrast ultrasound was relatively poor study. Though there is not obvious biliary dilatation. Infiltrative disease is also in the differential for obstructive pattern or medications. He is on no new medications or ones obviously implicated in obstructive jaundice. I think this patient needs a contrast CT this can be done as an inpatient or outpatient. Autoimmune disorders less probably and then 79-year-old male but should check for antimitochondrial antibodies. Patient states he has noted some decreased appetite which just could be related to jaundice. He denies abdominal pain back pain right upper quadrant pain. (2) Abnormal LFTs: Recheck levels tomorrow Plan Dr. Zuleta reviewed ED work-up and from a GI perspective, the patient can have close outpatient follow-up with GI. I have placed outpatient laboratory orders for further liver serologies to be performed CEL[facility] and our office will be coordinating with the patient for a contrast enhanced imaging study to be done this week. Further recommendations and care coordination to be made in the outpatient setting based upon results of his further work-up. History of Present Illness Reason for Consultation: Abnormal LFTs, painless jaundice History of Present Illness Patient is a 79 yo male with painless jaundice & elevated LFTs. Dr. Zuleta was contacted by the ED for further recommendations for this patient. Patient has a T bili of 6.5, D bili 4.3, AST 246, ALT 100, Alk phos 1249. CT imaging was unremarkable for an acute issue, however was not contrast enhanced. US was obtained but was technically limited. Allergies Allergy/AdvReac Type Severity Reaction Status Date / Time cefaclor AdvReac Intermediate RASH Verified 01/12/24 10:01 oxycodone AdvReac Intermediate "I GET ALL Verified 01/12/24 10:01 GOOFY" Home Medications Medication Instructions Recorded Confirmed Type sharps container-insulin syringe ##1 10/05/18 01/12/24 History and needle 1 mL 30 gauge x 08/18" acetaminophen 325 mg capsule 650 mg PO UD PRN Pain 02/13/20 05/09/24 History (Tylenol) clotrimazole 1 % topical cream 1 applic topical UD PRN Skin 03/17/21 05/09/24 History (Lotrimin AF (clotrimazole)) Irritation aspirin 81 mg tablet,delayed 81 mg PO QAM 05/28/21 05/09/24 History release flash glucose scanning reader 07/04/21 01/12/24 History (FreeStyle Maisha 2 [place]) lancets 30 gauge (OneTouch Delica 07/04/21 01/12/24 History Plus Lancet) flash glucose sensor (FreeStyle #2 ea 07/09/21 01/12/24 Rx Maisha 2 Sensor kit) pen needle, diabetic 32 gauge x #100 ea 05/27/22 01/12/24 Rx 1/4" (BD Ultra-Fine Micro Pen Needle) apixaban 5 mg tablet (Eliquis) 5 mg PO BID #180 tabs 04/28/23 05/09/24 Rx nitroglycerin 0.4 mg sublingual 0.4 mg sublingual Q5M PRN Chest 11/11/23 05/09/24 History tablet Pain ondansetron 4 mg disintegrating 4 mg PO Q8H PRN Nausea And Vomiting 11/11/23 05/09/24 History tablet pantoprazole 40 mg tablet,delayed 40 mg PO QAM 11/11/23 05/09/24 History release polyethylene glycol 3350 17 17 g PO QAM 11/11/23 05/09/24 History gram/dose oral powder (Miralax) empagliflozin 25 mg tablet 25 mg PO QAM 12/11/23 05/09/24 History (Jardiance) tirzepatide 5 mg/0.5 mL 5 mg subcut WK 12/11/23 05/09/24 History subcutaneous pen injector (Olafunsveta) amlodipine 5 mg tablet (Norvasc) 5 mg PO QAM #30 tabs 12/20/23 05/09/24 Rx insulin lispro 100 unit/mL 1 sliding scale dose subcut 12/20/23 05/09/24 Rx subcutaneous pen (Admelog Sc[place] USEASDIRECTD #0 mL U-) metoprolol succinate 50 mg 50 mg PO BID #60 tabs 12/20/23 05/09/24 Rx tablet,extended release 24 hr sennosides 8.6 mg tablet (Senokot) 17.2 mg (2 x 8.6 mg) PO QAM #60 12/20/23 05/09/24 Rx tabs atorvastatin 80 mg tablet 80 mg PO HS 05/09/24 05/09/24 History calcitriol 0.5 mcg capsule 0.5 mcg PO QAM 05/09/24 05/09/24 History carbamide peroxide 6.5 % ear drops 5 - 10 drp otic (ear) BID 05/09/24 05/09/24 History (Ear Wax Removal Drops) furosemide 20 mg tablet 10 mg PO QAM 05/09/24 05/09/24 History gabapentin 300 mg capsule 300 mg PO HS 05/09/24 05/09/24 History insulin degludec 100 unit/mL (3 40 unit subcut QA 05/09/24 05/09/24 History mL) subcutaneous pen (Tresiba FlexTouch U-100 insulin) levothyroxine 112 mcg capsule 112 mcg PO QAM 05/09/24 05/09/24 History losartan 100 mg tablet 50 mg PO QAM 05/09/24 05/09/24 History magnesium oxide 400 mg PO QAM 05/09/24 05/09/24 History xxqcqzin-mfikasukd-mwlfbtlwps 2 drp otic (ear) TID 05/09/24 05/09/24 History potassium chloride 10 mEq 10 meq PO QAM 05/09/24 05/09/24 History tablet,extended release sertraline 50 mg tablet 75 mg PO QAM 05/09/24 05/09/24 History terazosin 10 mg capsule 10 mg PO QAM 05/09/24 05/09/24 History Patient History Medical History Chronic kidney disease, stage III (moderate) Acute respiratory failure JUANPABLO (acute kidney injury) Colon polyps Elevated transaminase level Hematuria Tinea pedis of both feet Vitamin D deficiency Surgical History History of incision and drainage (12/15/23) History of colonoscopy History of tonsillectomy History of mandibular surgery History of cholecystectomy History of coronary artery stent placement History of cardiac cath History of cataract surgery Family History Father Lung cancer Brother Lung disease Lung cancer Denies family history of Ovarian cancer Prostate cancer Myocardial infarction Breast cancer Colorectal cancer Social History Smoking Status: Never smoker Age Started Using Tobacco: 20; Age Quit Using Tobacco: 21; Second Hand Exposure: Yes; Hx Alcohol Use: Yes Alcohol type: beer Alcohol Intake Frequency: Monthly or Less Alcohol Intake Frequency Comment: Socially Hx Substance Use: No Preferred Language: Spanish Communication Ability: Effective Visual Impairment: No Limitations Hearing Ability: Use of Hearing Aid Rn Transplant Required: No Beliefs That Will Affect Care: None marital status: / Current Living Situation: Personal Care Facility current occupational status: retired 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 How many Children do You have: 2 Feels Safe at Home: Yes Childhood Exposure to Second-Hand Smoke: No Diet: regular Diet Comment: Regular Diet caffeine: No during the past year weight has: remained stable Dental Care, Regularly: No Physical Activity Frequency: Does not Exercise Seatbelt Use: sometimes Sunscreen Use: No Assistive Devices: Hearing Aid - Bilateral, Walker and Wheelchair Review of Systems Gastrointestinal: early satiety; denies other symptoms GI Physical Exam Constitutional: well developed Gastrointestinal (Abdomen): normal bowel sounds, soft, nontender, no hepatosplenomegaly Skin: jaundice Results & Data Vital Signs (Past 12 Hours) Vital Signs Temp Pulse Pulse Resp BP BP Pulse Ox 05/09/24 14:00 63 20 176/73 H 98 05/09/24 12:54 63 05/09/24 12:33 63 14 99 05/09/24 12:31 186/83 H 05/09/24 12:31 186/83 H 05/09/24 12:31 186/83 H 05/09/24 12:24 65 16 90 05/09/24 12:00 20 186/83 H 94 05/09/24 11:30 64 15 183/99 H 98 05/09/24 10:57 67 18 173/88 H 96 05/09/24 10:32 63 15 173/88 H 98 05/09/24 10:01 61 12 145/82 H 93 05/09/24 09:24 62 18 161/84 H 98 05/09/24 09:00 60 18 132/83 98 05/09/24 08:53 67 05/09/24 08:50 62 17 126/73 97 05/09/24 08:38 36.5 C 58 L 18 126/73 98 O2 Del Method 05/09/24 14:00 05/09/24 12:54 05/09/24 12:33 05/09/24 12:31 05/09/24 12:31 05/09/24 12:31 05/09/24 12:24 05/09/24 12:00 05/09/24 11:30 05/09/24 10:57 05/09/24 10:32 05/09/24 10:01 05/09/24 09:24 05/09/24 09:00 05/09/24 08:53 05/09/24 08:50 05/09/24 08:38 Room Air PG Care Time/CCT Total # of Minutes Spent Total Time Spent with Patient: Total time spent is greater than 50% in coordination of care (as documented) at patient's floor/unit and/or counseling patient: Coding Level of Care Code 15810 INT INP/OBS CARE 3/75MIN Diagnoses Jaundice R17 Abnormal LFTs R79.89
--- NOTE | 2024-05-09 14:39 | History & Physical Report ---
Date of Service May 09, 2024 Assessment & Plan (1) Abnormal LFTs: Plan: Transaminitis No evidence of obstruction on CT/ultrasound Outpatient GI follow-up if stable LFTs trended Acute hepatitis panel ordered If rising transaminitis or worsening clinical picture, obtain CTA/P with contrast as inpatient MR FOUNTAIN is not available at time of admission? Medication effect, Mounjaro. No alcohol use Last A1c 8.7% although facility notes widely fluctuating poorly controlled blood sugar in the last several weeks. Dx include steatohepatitis Type II DM With poor/labile control per facility A1c pending Jardiance temporarily held Patient is on Mounjaro weekly. Some case reports of tirzepatide induced transaminitis with unclear mechanism. Held. Stable issues GERD: Continue PPI PE: Continue apixaban anticoagulation CAD/CHF/hypertension: Continue amlodipine, atorvastatin, Lasix, metoprolol on admission. Acute CHF is not present on admission - CKD: BMP daily. Cr at baseline. Trend daily. DVT prophylaxis: Anticoagulated Disposition: MSO Diet: Type II DM CODE STATUS: Full code (2) Chronic kidney disease, stage III (moderate): (3) Acute respiratory failure: (4) JUANPABLO (acute kidney injury): History of Present Illness Primary Care Provider: [facility] Gerry is a 79-year-old male with past medical history of PE, type II DM with labile blood sugars, CHF, chronic anemia, neuropathy who presents with jaundice. He has had a history of prior cholecystectomy. He does not have any flulike symptoms, and has no leukocytosis. He has no abdominal pain. No pain with meals. Tylenol level was negative in the ER Bilirubin 6.5, AST 246, ALT 100, alk phos 1249. Acute obstructive appearance to LFTs initially. CTA/PDoes not show any acute findings, mild fatty liver. Follow-up abdominal ultrasound limited but grossly normal with a surgically absent gallbladder and a CBD of 4 mm. No abnormal flow within the portal vein GI was consulted while in the ER. Imaging was reviewed. Was recommended for outpatient liver serology and follow-up, and outpatient CTA/P with contrast to be arranged again as an outpatient. Case was discussed between the ER provider and patient's facility due to his marked transaminitis, facility did not feel comfortable with patient return until stable with repeat labs and recommended observation and repeat LFTs to ensure stability. Seen at bedside. Takes mounjaro on . No recent change in the last year. Has been stable on same dose and reports no dose adjustments. No new medications other than some eardrops which have worked well. No change in his oral medications. He has no abdominal pain. No nausea/vomiting/diarrhea/constipation. No pain with meals. No fever chills or sweats. He has not taken Tylenol recently. He has not taken other zzuz-hnv-xjsgjyi medications or supplements. Denies weakness. Denies alcohol use, denies tobacco use Denies IV drug use. Medication allergies and prior medical history reviewed Full code Allergies Allergy/AdvReac Type Severity Reaction Status Date / Time cefaclor AdvReac Intermediate RASH Verified 01/12/24 10:01 oxycodone AdvReac Intermediate "I GET ALL Verified 01/12/24 10:01 GOOFY" Home Medications Medication Instructions Recorded Confirmed Type sharps container-insulin syringe ##1 10/05/18 01/12/24 History and needle 1 mL 30 gauge x 5/16" acetaminophen 325 mg capsule 650 mg PO UD PRN Pain 02/13/20 05/09/24 History (Tylenol) clotrimazole 1 % topical cream 1 applic topical UD PRN Skin 03/17/21 05/09/24 History (Lotrimin AF (clotrimazole)) Irritation aspirin 81 mg tablet,delayed 81 mg PO QAM 05/28/21 05/09/24 History release flash glucose scanning reader 07/04/21 01/12/24 History (FreeStyle Maisha 2 [place]) lancets 30 gauge (OneTouch Delica 07/04/21 01/12/24 History Plus Lancet) flash glucose sensor (FreeStyle #2 ea 07/09/21 01/12/24 Rx Maisha 2 Sensor kit) pen needle, diabetic 32 gauge x #100 ea 05/27/22 01/12/24 Rx 1/4" (BD Ultra-Fine Micro Pen Needle) apixaban 5 mg tablet (Eliquis) 5 mg PO BID #180 tabs 04/28/23 05/09/24 Rx nitroglycerin 0.4 mg sublingual 0.4 mg sublingual Q5M PRN Chest 11/11/23 05/09/24 History tablet Pain ondansetron 4 mg disintegrating 4 mg PO Q8H PRN Nausea And Vomiting 11/11/23 05/09/24 History tablet pantoprazole 40 mg tablet,delayed 40 mg PO QAM 11/11/23 05/09/24 History release polyethylene glycol 3350 17 17 g PO QAM 11/11/23 05/09/24 History gram/dose oral powder (Miralax) empagliflozin 25 mg tablet 25 mg PO QAM 12/11/23 05/09/24 History (Jardiance) tirzepatide 5 mg/0.5 mL 5 mg subcut WK 12/11/23 05/09/24 History subcutaneous pen injector (Olafunsveta) amlodipine 5 mg tablet (Norvasc) 5 mg PO QAM #30 tabs 12/20/23 05/09/24 Rx insulin lispro 100 unit/mL 1 sliding scale dose subcut 12/20/23 05/09/24 Rx subcutaneous pen (Admelog [place] USEASDIRECTD #0 mL U-) metoprolol succinate 50 mg 50 mg PO BID #60 tabs 12/20/23 05/09/24 Rx tablet,extended release 24 hr sennosides 8.6 mg tablet (Senokot) 17.2 mg (2 x 8.6 mg) PO QAM #60 12/20/23 05/09/24 Rx tabs atorvastatin 80 mg tablet 80 mg PO HS 05/09/24 05/09/24 History calcitriol 0.5 mcg capsule 0.5 mcg PO QAM 05/09/24 05/09/24 History carbamide peroxide 6.5 % ear drops 5 - 10 drp otic (ear) BID 05/09/24 05/09/24 History (Ear Wax Removal Drops) furosemide 20 mg tablet 10 mg PO QAM 05/09/24 05/09/24 History gabapentin 300 mg capsule 300 mg PO HS 05/09/24 05/09/24 History insulin degludec 100 unit/mL (3 40 unit subcut QAM 05/09/24 05/09/24 History mL) subcutaneous pen (Tresiba FlexTouch U-100 insulin) levothyroxine 112 mcg capsule 112 mcg PO QAM 05/09/24 05/09/24 History losartan 100 mg tablet 50 mg PO QAM 05/09/24 05/09/24 History magnesium oxide 400 mg PO QAM 05/09/24 05/09/24 History aihtskan-ylvrtagub-fqjnuaauvz 2 drp otic (ear) TID 05/09/24 05/09/24 History potassium chloride 10 mEq 10 meq PO QAM 05/09/24 05/09/24 History tablet,extended release sertraline 50 mg tablet 75 mg PO QAM 05/09/24 05/09/24 History terazosin 10 mg capsule 10 mg PO QAM 05/09/24 05/09/24 History Past Med/Surg History Problem List (Updated 05/09/24 @ 12:13 by Alycia Almenadrez DO) Abnormal LFTs (Acute) Jaundice (Acute) History of DVT (deep vein thrombosis) Acute metabolic encephalopathy Scalp abscess (Acute) Cellulitis of scalp (Acute) Right otitis media Finger pain, left Encounter for screening colonoscopy Toe injury Traumatic loss of toenail of right great toe Vitamin D deficiency Bilateral pulmonary embolism Lumbar back pain with radiculopathy affecting left lower extremity Albuminuria Hypertension Diabetes type 2, uncontrolled Pulmonary nodule Sleep apnea (Chronic) Secondary hyperparathyroidism (Chronic) Morbid obesity (Chronic) Lumbar spinal stenosis (Chronic) Hypothyroidism (Chronic) Dyslipidemia (Chronic) Dysesthesia (Chronic) Diabetic peripheral 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) Depression (Chronic) Chronic reflux esophagitis (Chronic) Cardiac pacemaker (Chronic) CHF (congestive heart failure) (Chronic) Arteriosclerotic cardiovascular disease (Chronic) Anemia (Chronic) Background diabetic retinopathy associated with type 2 diabetes mellitus Hypomagnesemia Chronic anemia (Acute) Medical History Chronic kidney disease, stage III (moderate) Acute respiratory failure JUANPABLO (acute kidney injury) Colon polyps Elevated transaminase level Hematuria Tinea pedis of both feet Vitamin D deficiency Surgical History History of incision and drainage (12/15/23) History of colonoscopy History of tonsillectomy History of mandibular surgery History of cholecystectomy History of coronary artery stent placement History of cardiac cath History of cataract surgery Family History Father Lung cancer Brother Lung disease Lung cancer Denies family history of Ovarian cancer Prostate cancer Myocardial infarction Breast cancer Colorectal cancer Social History Smoking Status: Never smoker Tobacco Type: Cigarettes and Pipe Age Started Using Tobacco: 20; Age Quit Using Tobacco: 21; Cigarettes Per Day: 15; Second Hand Exposure: Yes; Do You Dip or Chew Tobacco: No; Hx Alcohol Use: Yes Alcohol type: beer Alcohol Intake Frequency: Monthly or Less Alcohol Intake Frequency Comment: Socially Hx Substance Use: No Preferred Language: Maltese Communication Ability: Effective Visual Impairment: No Limitations Hearing Ability: Use of Hearing Aid Claim Taker Required: No Beliefs That Will Affect Care: None marital status: / Current Living Situation: Personal Care Facility current occupational status: retired 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 NAD. Cooperative. HEENT: Atraumatic, normocephalic. Vision and hearing grossly intact Pulm: CTAB A&P. -wheezes, -rales, -rhonchi. Symmetrical chest rise. No increased work of breathing. No respiratory distress. Cardiac: RRR, -mrg. Radial pulses intact and symmetrical. Abdominal: Nontender, nondistended, soft. BS present. Results & Data Results & Data Vital Signs (Past 12 Hours) Vital Signs Temp Pulse Pulse Resp BP BP Pulse Ox 05/09/24 14:00 63 20 176/73 H 98 05/09/24 12:54 63 05/09/24 12:33 63 14 99 05/09/24 12:31 186/83 H 05/09/24 12:31 186/83 H 05/09/24 12:31 186/83 H 05/09/24 12:24 65 16 90 05/09/24 12:00 20 186/83 H 94 05/09/24 11:30 64 15 183/99 H 98 05/09/24 10:57 67 18 173/88 H 96 05/09/24 10:32 63 15 173/88 H 98 05/09/24 10:01 61 12 145/82 H 93 05/09/24 09:24 62 18 161/84 H 98 05/09/24 09:00 60 18 132/83 98 05/09/24 08:53 67 05/09/24 08:50 62 17 126/73 97 05/09/24 08:38 36.5 C 58 L 18 126/73 98 O2 Del Method 05/09/24 14:00 05/09/24 12:54 05/09/24 12:33 05/09/24 12:31 05/09/24 12:31 05/09/24 12:31 05/09/24 12:24 05/09/24 12:00 05/09/24 11:30 05/09/24 10:57 05/09/24 10:32 05/09/24 10:01 05/09/24 09:24 05/09/24 09:00 05/09/24 08:53 05/09/24 08:50 05/09/24 08:38 Room Air PG Care Time/CCT Total # of Minutes Spent Total Time Spent with Patient: Total time spent is greater than 50% in coordination of care (as documented) at patient's floor/unit and/or counseling patient: Coding Level of Care Code 23702 INT INP/OBS CARE 375MIN Diagnoses Abnormal LFTs R79.89 Stage 3b chronic kidney disease N18.32 Chronic kidney disease stage 3 subtype: stage 3b (GFR 30-44) Acute respiratory failure J96.00 JUANPABLO (acute kidney injury) N17.9 (2) Chronic kidney disease, stage III (moderate) Chronic kidney disease stage 3 subtype: stage 3b (GFR 30-44) Qualified Code(s): N18.32 - Chronic kidney disease, stage 3b
[2024-05-09 15:55] VITALS: PULSE 62
[2024-05-09 16:00] LABS: Hep B Surface Ag with confirm Negative (Negative)
[2024-05-09 16:05] LABS: Hep C Ab Rflx HepCQuant RNA Negative (Negative)
[2024-05-09] MEDS ORDERED: NITROGLYCERIN SL 0.4 MG/TAB TAB SL PRN (16:15)
[2024-05-09] MEDS ORDERED: DEXTROSE 50% 50 ML SYRINGE IV PRN (16:15)
[2024-05-09] MEDS ORDERED: GLUCAGON FOR INJ 1 MG VIAL SQ PRN (16:15)
[2024-05-09] MEDS ORDERED: GLUCOSE 40% GEL 15 GM TUBE PO PRN (16:15)
[2024-05-09] MEDS ORDERED: CARBOHYDRATES FOR HYPOGLYCEMIA PO PRN (16:15)
[2024-05-09] MEDS ORDERED: GLUCOSE 10 TAB/TUBE PO PRN (16:15)
[2024-05-09] MEDS ORDERED: PHARMACY GLYCEMIC MGMT CONSULT PRN (16:15)
[2024-05-09] MEDS ORDERED: ONDANSETRON 4 MG OD TAB PO PRN (16:15)
[2024-05-09] MEDS ORDERED: CLOTRIMAZOLE 1% CR 15 GM TUBE TOP PRN (16:15)
[2024-05-09 17:28] LABS: Ferritin 164.2 ng/ml (8-388)
[2024-05-09 17:33] LABS: Hep B Surface Ag with confirm Negative (Negative)
[2024-05-09 17:40] LABS: Hep C Ab Rflx HepCQuant RNA Negative (Negative)
[2024-05-09 17:43] LABS: Hepatitis B Surface Ab Quant < 3.00 mIU/mL (>or=10mIU/mL Immune); Hepatitis B Surface Antibody Non-Immune
[2024-05-09] MEDS: INSULIN ASPART PER UNIT CHARGE SC SCH (17:56)
[2024-05-09 19:46] VITALS: RESP 16
[2024-05-09] MEDS: METOPROLOL SUCC 50MG EXT REL TAB PO SCH (20:30)
[2024-05-09] MEDS: ATORVASTATIN 40 MG TAB PO SCH (20:30)
[2024-05-09] MEDS: APIXABAN 5 MG TABLET PO SCH (20:31)
[2024-05-09] MEDS: GABAPENTIN 300 MG CAP PO SCH (20:31)
[2024-05-09] MEDS: NEOMYCIN/POLYMYXIN/GRAMICIDIN 10 ML BTL OT SCH (21:49)
[2024-05-10] MEDS: LEVOTHYROXINE SODIUM 112 MCG TABLET PO SCH (05:33)
[2024-05-10 07:58] LABS: Basophils # (auto) 0.07 K/uL (0.00-0.20); Basophils % (auto) 1.1 %; Eosinophils # (auto) 0.48 K/uL (0.00-0.50); Eosinophils % (auto) 7.3 %; Hematocrit (blood only) 36.4 % (42.0-52.0); Immature Granulocytes # (auto) 0.01 K/uL (0.01-0.20); Immature Granulocytes % (auto) 0.2 %; Lymphocytes # (auto) 0.73 K/uL (1.20-3.40); Lymphocytes % (auto) 11.1 %; Mean Corpuscular Hemoglobin 26.3 pg (25.0-34.0); Mean Corpuscular Volume 79.8 fL (80.0-100.0); Mean Platelet Volume 11.3 fL (9.4-12.4); Monocytes # (auto) 0.71 K/uL (0.11-0.59); Monocytes % (auto) 10.8 %; Neutrophils # (auto) 4.58 K/uL (1.40-6.50); Neutrophils % (auto) 69.5 %; Platelet Count 157 K/uL (130-400); RDW Coefficient of Variation 18.6 % (11.5-14.5); RDW Standard Deviation 54.3 fL (36.4-46.3); Red Blood Count 4.56 M/uL (4.70-6.10); White Blood Count 6.58 K/ul (4.8-10.8)
[2024-05-10 07:59] VITALS: BP 168/92; TEMP 97.9; O2SAT 95
[2024-05-10 08:18] LABS: Albumin Globulin Ratio 0.8 (0.9-2); Albumin Level 3.1 gm/dl (3.4-5.0); BUN Creatinine Ratio 9.2 (10-20); Bilirubin,Total 6.5 mg/dl (0.2-1.0); Calcium 8.9 mg/dl (8.6-10.3); Creatinine Clr Calc Pharmacy 34.5 ml/min; Globulin 3.7 gm/dl (2.5-4.0); Potassium 3.1 mmol/L (3.5-5.1); Total Protein 6.8 gm/dl (6.0-8.3)
[2024-05-10] MEDS: ASPIRIN 81 MG ECTAB PO SCH (08:54)
[2024-05-10] MEDS: CALCITRIOL 0.25 MCG CAPSULE PO SCH (08:54)
[2024-05-10] MEDS: amLODIPine BESYLATE 5 MG TAB PO SCH (08:54)
[2024-05-10] MEDS: FUROSEMIDE 20 MG TAB PO SCH (08:54)
[2024-05-10] MEDS: LOSARTAN POTASSIUM 50 MG TAB PO SCH (08:55)
[2024-05-10] MEDS: MAGNESIUM OXIDE 400 MG TAB PO SCH (08:56)
[2024-05-10] MEDS: PANTOprazole 40 MG TAB PO SCH (08:57)
[2024-05-10] MEDS: POLYETHYLENE (MIRALAX) 17 GM PACK PO SCH (08:57)
[2024-05-10] MEDS: SERTRALINE HCL 50 MG TABLET PO SCH (08:58)
[2024-05-10] MEDS: TERAZOSIN HCL 5 MG CAP PO SCH (08:59)
[2024-05-10] MEDS ORDERED: LANTUS PER UNIT CHARGE SQ SCH (09:00)
[2024-05-10] MEDS: SENNA 8.6 MG TAB PO SCH (09:03)
[2024-05-10] MEDS: POTASSIUM CHLORIDE 10 MEQ TABCR PO SCH (09:03)
--- NOTE | 2024-05-10 09:47 | Pharmacy Report ---
Pharmacy Glycemic Short Note 2 - Date of Service May 10, 2024 - Glycemic Short BSG Results (Last 24 hours): 05/09/24 05/09/24 05/09/24 08:58 16:58 20:42 Glucose 123 H POC Glucose 82 151 H 05/10/24 05/10/24 07:34 07:55 Glucose 118 H POC Glucose 113 H OUTPATIENT ANTIDIABETIC REGIMEN: * Tresiba 40 units QAM * Admelog with meals * Jardiance 25mg po daily * Mounjaro 5mg SQ q wednesday HBA1c is pending ASSESSMENT: * 79 year old male with T2DM admitted 05/09 for jaundice/abnormal LFTs. Pharmacy has been consulted for glycemic management while he is admitted. * BSGs have been within or below goal range since admission. Fasting BSG was 113mg/dL this morning. It was reported that his last dose of Tresiba was administered the morning of 05/08. * Will not start basal insulin this morning--will continue to follow BSGs and if above goal range will consider adding today. * Conservative bolus insulin (weight based with a stress between 1 and 2) was ordered last night and will be continued for now. PLAN FOR INPATIENT GLYCEMIC CONTROL: * Hold outpatient diabetes medications * Basal insulin * hold for now * Bolus insulin * NovoLog per scale ACHS or Q6hrs while NPO * Goal Range: Low 110 mg/dL - High 160 mg/dL * Correction Factor: 35 mg/dL/unit * Nutritional / Prandial insulin per carb ratio of 1 unit per 10 grams CHO consumed
[2024-05-10] MEDS: CHOLESTYRAMINE LIGHT 4 GM PKT PO SCH (11:04)
[2024-05-10] MEDS: POTASSIUM CHLORIDE CRTAB 20 MEQ TABCR PO STA (11:34)
--- NOTE | 2024-05-10 14:31 | Communication Note ---
Date of Service: May 10, 2024 Informed hospitalist that our outpatient clinic has the authorization arranged to schedule this patient's CT imaging upon discharge. We do not expect his LFTs to normalize before discharge. We will follow-up with his labs & CT scan as an outpatient.
[2024-05-11 09:52] LABS: Estimated Average Glucose 166 mg/dl; Hemoglobin A1C 7.4 % (4.5-5.6)
[2024-05-11 14:16] LABS: EBV Nuclear Ag Antibody >600.00 U/mL; EBV Virus Capsid Ag IgG Ab >750.00 U/mL
[2024-05-11 16:08] LABS: Anti Mitochondrial Antibody NEGATIVE (NEGATIVE); Hepatitis A Antibody IgM NON-REACTIVE (NON-REACTIVE); Hepatitis B Core Antibody IgM NON-REACTIVE (NON-REACTIVE)
--- NOTE | 2024-05-14 11:34 | Discharge Summary ---
Discharge Summary Date of Service May 10, 2024 Principal Dx & Hospital Course #1 = Principal Diagnosis (1) Abnormal LFTs: Transaminitis No evidence of obstruction on CT/ultrasound Outpatient GI follow-up LFTs trended: stable Acute hepatitis panel ordered and pending. unknown cause, will need outpatient GI workup. Last A1c 8.7% although facility notes widely fluctuating poorly controlled blood sugar in the last several weeks. Dx include steatohepatitis Type II DM With poor/labile control per facility will hold rhinarochristian as sugars have been controlled. Some case reports of tirzepatide induced transaminitis with unclear mechanism. Held. Stable issues GERD: Continue PPI PE: Continue apixaban anticoagulation CAD/CHF/hypertension: Continue amlodipine, atorvastatin, Lasix, metoprolol on admission. Acute CHF is not present on admission - CKD: BMP daily. Cr at baseline. Trend daily. (2) Chronic kidney disease, stage III (moderate): (3) Acute respiratory failure: (4) JUANPABLO (acute kidney injury): Admission HPI Per Admitting Provider Gerry is a 79-year-old male with past medical history of PE, type II DM with labile blood sugars, CHF, chronic anemia, neuropathy who presents with jaundice. He has had a history of prior cholecystectomy. He does not have any flulike symptoms, and has no leukocytosis. He has no abdominal pain. No pain with meals. Tylenol level was negative in the ER Bilirubin 6.5, AST 246, ALT 100, alk phos 1249. Acute obstructive appearance to LFTs initially. CTA/PDoes not show any acute findings, mild fatty liver. Follow-up abdominal ultrasound limited but grossly normal with a surgically absent gallbladder and a CBD of 4 mm. No abnormal flow within the portal vein GI was consulted while in the ER. Imaging was reviewed. Was recommended for outpatient liver serology and follow-up, and outpatient CTA/P with contrast to be arranged again as an outpatient. Case was discussed between the ER provider and patient's facility due to his marked transaminitis, facility did not feel comfortable with patient return until stable with repeat labs and recommended observation and repeat LFTs to ensure stability. Seen at bedside. Takes mounjaro on . No recent change in the last year. Has been stable on same dose and reports no dose adjustments. No new medications other than some eardrops which have worked well. No change in his oral medications. He has no abdominal pain. No nausea/vomiting/diarrhea/constipation. No pain with meals. No fever chills or sweats. He has not taken Tylenol recently. He has not taken other xqnc-jkw-tvvvcan medications or supplements. Denies weakness. Denies alcohol use, denies tobacco use Denies IV drug use. Medication allergies and prior medical history reviewed Full code Discharge Exam gen - awake/alert, NAD, sitting in chair neck - no JVD mouth - MMM heart - RRR, s1 s2, no murmur lungs - CTA b/l abd - soft, BS+, NT ext - no edema, pulses 2+ b/l neuro - no focal deficits Discharge Plan Discharge Items Patient Disposition: Personal Jail Reason For Visit: TRANSAMINITIS Discharge Diagnosis: transaminitis Activity: Resume your previous activity Non-emergency contact: Primary Care Provider Call non-emergency contact if: you have any medication questions Follow-up/Referrals: Myrna Sy Hall [Primary Care Provider] - Diet: Carb Consistent or DM2 and Heart Healthy Addtl Attending Provider Instructions: You were found to have elevated liver enzymes and elevated bilirubin. We did imaging and your common bile duct was not dilated making a blockage less likely. This appears to be a liver problem and we ordered significant testing which may take a few days to come back to view. Now you were found to have pruritus which is itching due to elevated bilirubin. The buildup of bile acids in the blood irritates nerve endings in the skin which can cause itchiness. Cholestyramine will help decrease the bile acid levels to limit the itchiness. Patient will need followup with [facility] Will hold christian chávez tresiba given his blood sugars have been controlled. COntinue lispro sliding scale. Pending Studies at Discharge: No Stand-Alone Forms: My [facility] Pay, Smoking Cessation Skilled Items Patient informed of condition?: Yes DNR: No Discharge Level of Care: Other Communicable Disease: No Discharge Prognosis: Stable Lines: None Urinary Catheter: No Medications and DC Order Prescriptions: New cholestyramine-aspartame [Prevalite] 4 gram Powder In Packet 1 ea PO BID 14 Days Qty: 60 0RF Continued (DME) FreeStyle Maisha 2 Sensor Kit See Rx Instructions .Route Qty: 2 11RF Rx Instructions: Change every 14 days pantoprazole 40 mg tablet,delayed release (DR/EC) 40 mg PO QAM polyethylene glycol 3350 [Miralax] 17 gram/dose powder 17 g PO QAM nitroglycerin 0.4 mg tablet, sublingual 0.4 mg sublingual Q5M PRN (Reason: Chest Pain) Rx Instructions: do not exceed 3 doses per episode ondansetron 4 mg tablet,disintegrating 4 mg PO Q8H PRN (Reason: Nausea And Vomiting) clotrimazole [Lotrimin AF (clotrimazole)] 1 % cream 1 applic TOP UD PRN (Reason: Skin Irritation) Rx Instructions: 1 ana lilia top bid prn. Not on faxed med list Apply to 1 inch above affected areas of the feet for 1 month, then continue to apply around nails daily. (DME) sharps bin-insulin syrin-needl 1 mL 30 gauge x 5/16" syringe See Dose Instructions .ROUTE .MEDSUPPLY Qty: 1 Rx Instructions: As directed acetaminophen [Tylenol] 325 mg capsule 650 mg PO UD PRN (Reason: Pain) Rx Instructions: 650 mg po tid prn. Not on faxed med list (DME) lancets [OneTouch Delica Plus Lancet] 30 gauge misc See Rx Instructions .ROUTE .MEDSUPPLY Rx Instructions: Test blood sugar once daily PRN (DME) FreeStyle Maisha 2 [place] Misc See Rx Instructions .Route Rx Instructions: As directed Eliquis 5 mg tablet 5 mg PO BID Qty: 180 1RF Rx Instructions: 5 mg po BID (DME) pen needle, diabetic [BD Ultra-Fine Micro Pen Needle] 32 gauge x 1/4" needle See Rx Instructions .Route Qty: 100 3RF Rx Instructions: use twice daily aspirin 81 mg Tablet,Delayed Release (Dr/Ec) 81 mg PO QAM amlodipine [Norvasc] 5 mg Tablet 5 mg PO QAM Qty: 30 2RF sennosides [Senokot] 8.6 mg Tablet 17.2 mg PO QAM Qty: 60 2RF metoprolol succinate 50 mg tablet extended release 24 hr 50 mg PO BID Qty: 60 2RF insulin lispro [Admelog SoloStar U-100 Insulin] 100 unit/mL insulin pen 1 sliding scale dose subcut USEASDIRECTD Qty: 0 0RF Rx Instructions: SS before meals and at Bedtime: 151-200=4 units; 201-250=6 units; 251- 300=10 units; 301-350 = 12 units; 351-400= 15 units; 401 or greater give 15 units and call physician. Ear Wax Removal Drops 6.5 % Drops 5 - 10 drp OTIC (EAR) BID [id number]-fduujinny-xzxydpbxkw 2 drp otic (ear) TID atorvastatin 80 mg tablet 80 mg PO HS potassium chloride 10 mEq tablet extended release 10 meq PO QAM calcitriol 0.5 mcg capsule 0.5 mcg PO QAM gabapentin 300 mg capsule 300 mg PO HS furosemide 20 mg tablet 10 mg PO QAM losartan 100 mg tablet 50 mg PO QAM sertraline 50 mg tablet 75 mg PO QAM terazosin 10 mg capsule 10 mg PO QAM Rx Instructions: TAKE 1 CAPSULE DAILY levothyroxine 112 mcg capsule 112 mcg PO QAM magnesium oxide 400 mg magnesium tablet 400 mg PO QAM Held Jardiance 25 mg tablet 25 mg PO QAM Hold Instructions: Provider's Order due to renal failure. will defer to PCP as to when to resume Mounjaro 5 mg/0.5 mL pen injector 5 mg SUBCUT WK Hold Instructions: Provider's Order holding due to hepatitis Rx Instructions: Wednesday insulin degludec [Tresiba FlexTouch U-100] 100 unit/mL (3 mL) insulin pen 40 unit subcut QAM Hold Instructions: Provider's Order Blood sugars are controlled. will hold until blood sugars rise. may need a lower dose. Discharge Orders: Discharge Order (Routine); Ordered 05/10/24 Ordered By: Pool Madison Admission Data Admit Date/Time: 05/09/24 15:07 Attending Provider: Pool Madison Admit Provider: Raza Carias Primary Care Provider: [facility] Other Providers: Raza Carias Other Interventions: Discharge Summary Assessment (RN) Last Done: 05/10/24 13:35 Hospital Stay Data Consultations 05/09/24 12:53 ED Decision to Admit Stat Diagnostic Imagining Performed 05/09/24 10:16 CT abd pelvis wo con Stat 05/09/24 12:43 US abdomen limited Stat Pending Results Patient Have Any Pending Studies at Discharge: No Discharge Instructions Given to Patient (Per Discharging Provider) You were found to have elevated liver enzymes and elevated bilirubin. We did imaging and your common bile duct was not dilated making a blockage less likely. This appears to be a liver problem and we ordered significant testing which may take a few days to come back to view. Now you were found to have pruritus which is itching due to elevated bilirubin. The buildup of bile acids in the blood irritates nerve endings in the skin which can cause itchiness. Cholestyramine will help decrease the bile acid levels to limit the itchiness. Patient will need followup with [facility] Will hold christian chávez tresiba given his blood sugars have been controlled. COntinue lispro sliding scale. Total Time Total Time Spent Total Time Spent (In Minutes): 32 Coding Level of Care Code 69729 INP/OBS DISCH >30 MIN Diagnoses Abnormal LFTs R79.89 Stage 3b chronic kidney disease N18.32 Chronic kidney disease stage 3 subtype: stage 3b (GFR 30-44) Acute respiratory failure J96.00 JUANPABLO (acute kidney injury) N17.9
== END 2024-05-10 13:45 | disposition home or self-care (01) ==
LOC: ED 08:47 → 3W 08:47 → SUATTDRO 15:07 → 3W 15:50
DX: R79.89 Other specified abnormal findings of blood chemistry; Z88.5 Allergy status to narcotic agent; R74.01 Elevation of levels of liver transaminase levels; Z86.718 Personal history of other venous thrombosis and embolism; I50.9 Heart failure, unspecified; Z79.01 Long term (current) use of anticoagulants; Z79.4 Long term (current) use of insulin; Z88.1 Allergy status to other antibiotic agents; Z79.82 Long term (current) use of aspirin; D64.9 Anemia, unspecified; N17.9 Acute kidney failure, unspecified; F17.210 Nicotine dependence, cigarettes, uncomplicated; E11.22 Type 2 diabetes mellitus with diabetic chronic kidney disease; Z79.899 Other long term (current) drug therapy; Z79.85 Long-term (current) use of injectable non-insulin antidiabetic drugs; R17 Unspecified jaundice; J96.00 Acute respiratory failure, unspecified whether with hypoxia or hypercapnia; E11.40 Type 2 diabetes mellitus with diabetic neuropathy, unspecified; N18.32 Chronic kidney disease, stage 3b

== ENCOUNTER 2024-05-14 06:18 | Inpatient (IN) ==
[2024-05-14 06:51] LABS: Basophils # (auto) 0.04 K/uL (0.00-0.20); Basophils % (auto) 0.8 %; Eosinophils # (auto) 0.34 K/uL (0.00-0.50); Eosinophils % (auto) 6.4 %; Hematocrit (blood only) 34.5 % (42.0-52.0); Hemoglobin 11.2 g/dl (14.0-18.0); Immature Granulocytes # (auto) 0.01 K/uL (0.01-0.20); Immature Granulocytes % (auto) 0.2 %; Lymphocytes # (auto) 0.49 K/uL (1.20-3.40); Lymphocytes % (auto) 9.2 %; Mean Corpuscular Hemoglobin 25.7 pg (25.0-34.0); Mean Corpuscular Hgb Conc 32.5 g/dL (32.0-36.0); Mean Corpuscular Volume 79.3 fL (80.0-100.0); Mean Platelet Volume 11.2 fL (9.4-12.4); Monocytes # (auto) 0.66 K/uL (0.11-0.59); Monocytes % (auto) 12.5 %; Neutrophils # (auto) 3.76 K/uL (1.40-6.50); Neutrophils % (auto) 70.9 %; Platelet Count 118 K/uL (130-400); RDW Coefficient of Variation 18.8 % (11.5-14.5); RDW Standard Deviation 54.5 fL (36.4-46.3); Red Blood Count 4.35 M/uL (4.70-6.10)
[2024-05-14 07:09] LABS: Albumin Globulin Ratio 0.8 (0.9-2); Albumin Level 3.2 gm/dl (3.4-5.0); BUN Creatinine Ratio 7.9 (10-20); Bilirubin,Total 5.9 mg/dl (0.2-1.0); Creatinine Clr Calc Pharmacy 32.9 ml/min; Globulin 3.8 gm/dl (2.5-4.0); Potassium 3.4 mmol/L (3.5-5.1)
[2024-05-14 07:25] LABS: Thyroid Stimulating Hormone 0.663 uIu/ml (0.300-4.500)
[2024-05-14 07:29] LABS: Troponin I High Sensitivity 54.5 pg/ml (0-20)
--- NOTE | 2024-05-14 08:17 | XRay Report ---
EXAM: XR chest 1V portable CLINICAL HISTORY: Weakness. TECHNIQUE: X-ray image of the chest is obtained in AP projection. COMPARISON: Previous CR dated 12/10/2023. FINDINGS: Pulmonary Parenchyma: Dual leads clinical research monitor is seen. Prominent both usama with perihilar and basal increased broncho vascular markings suggesting lung congestion. A small left apical calcified nodule is seen. No evidence of consolidation, collapse, or focal opacities. No evidence of pleural effusion or pleural thickening. Heart and Mediastinum: Heart size can not be assessed due to the AP projection. No mediastinal widening or masses. No hilar or mediastinal lymphadenopathy. Bony Thorax: Bony thorax appears intact without fractures or deformities. Soft Tissues: Soft tissues overlying the chest wall are unremarkable. IMPRESSION: Prominent both usama with perihilar and basal increased broncho vascular markings suggesting lung congestion. 1. Small left apical calcified nodule. 2. No gross interval changes in comparison with the previous study. Electronically signed by Leni Rivera 05-14-2024 08:16 AM
[2024-05-14 08:47] LABS: Adenovirus PCR Not Detected (NotDetected); Bordetella parapertussis PCR Not Detected (NotDetected); Bordetella pertussis PCR Not Detected (NotDetected); Chlamydia pneumoniae PCR Not Detected (NotDetected); Coronavirus 229E PCR Not Detected (NotDetected); Coronavirus CoV-2 (COVID19)PCR Not Detected (NotDetected); Coronavirus HKU1 PCR Not Detected (NotDetected); Coronavirus NL63 PCR Not Detected (NotDetected); Coronavirus OC43PCR Not Detected (NotDetected); Human Metapneumovirus PCR Not Detected (NotDetected); Influenza A (H3) PCR DETECTED (NotDetected); Influenza B PCR Not Detected (NotDetected); Mycoplasma pneumoniae PCR Not Detected (NotDetected); Parainfluenza Virus 1 PCR Not Detected (NotDetected); Parainfluenza Virus 2 PCR Not Detected (NotDetected); Parainfluenza Virus 3 PCR Not Detected (NotDetected); Parainfluenza Virus 4 PCR Not Detected (NotDetected); Respiratory Syncytial VirusPCR Not Detected (NotDetected); Rhinovirus/Enterovirus PCR Not Detected (NotDetected)
--- NOTE | 2024-05-14 08:49 | CT Scan Report ---
CT head/brain wo con CLINICAL HISTORY: 79 years-old Male with weakness. Acute weakness TECHNIQUE: Multiple axial CT images of the head were obtained without contrast. A dose lowering tech nique was utilized adhering to the principles of ALARA. COMPARISON: 12/10/2023, 05/28/2021 FINDINGS: No acute intracranial hemorrhage, midline shift, intracranial mass, hydrocephalus, territorial ischem ia or abnormal extra-axial collection. There is a large area of encephalomalacia within the right fro ntal lobe. Age-related involutional changes. White matter hypodensities suggest chronic microvascular ischemic disease. Cerebral vascular calcifications. Chronic appearing bilateral lacunar infarcts. Th e calvarium is intact. Prior bilateral lens repair. Paranasal sinuses are normally clear. Small right and moderate left mastoid and middle ear effusions. IMPRESSION: 1. No acute intracranial abnormality or calvarial fracture. 2. Large chronic right frontal lobe infarct. 3. Chronic appearing basal ganglia lacunar infarcts. 4. Left greater than right mastoid and middle ear effusions. ACT 112: Negative or not required by law. The above report was generated using voice recognition software. It may contain grammatical, syntax o r spelling errors. Electronically signed by: Rakan Francis M.D. 05/14/2024 8:46 AM
--- NOTE | 2024-05-14 08:58 | CT Scan Report ---
CT lumbar spine wo con HISTORY: 79 years-old Male leg weakness acute low back pain with lower extremity weakness COMPARISON: CT abdomen and pelvis 05/12/2024, CT lumbar spine 11/02/2022 TECHNIQUE: Multiple axial CT images of the lumbar spine were obtained without IV contrast. A dose low ering technique was used consistent with the principals of [facility]. FINDINGS: No acute fracture or subluxation. Chronic endplate irregularity again noted at L4-L5 and L5-S1. The L 5-S1 level is partially excluded from the [id number]. Severe intervertebral disc space narrowing w ith degenerative partial bony fusion at L5-S1 redemonstrated. Moderate multilevel spondylitic spurrin g and facet arthrosis with mild multilevel intervertebral disc space narrowing. Posterior disc osteop hyte complex redemonstrated at L3-L4 causing moderate to severe central canal stenosis. Posterior annem arie ular disc bulging at L4-L5 causes severe central canal stenosis, unchanged. Multilevel neural foramin al narrowing is again noted which is severe bilaterally at L4-L5, and moderate bilaterally at L5-S1. Superior endplate Schmorl's node at L4 has progressed from the 2022 comparison. Atherosclerosis of the aorta. The intra-abdominal structures are better seen on the recent CT abdomen and pelvis study. IMPRESSION: 1. No acute fracture or subluxation. 2. Chronic endplate irregularity of the lower lumbar spine. 3. Central canal and neural foraminal narrowing of the lower lumbar spine is similar to mildly worsen ed compared to the myelogram study from 11/02/2022. 4. Subacute to chronic appearing superior endplate Schmorl's node at L4 has progressed from 11/02/2022 . ACT 112: Negative or not required by law. The above report was generated using voice recognition software. It may contain grammatical, syntax o r spelling errors. Electronically signed by: Rakan Francis M.D. 05/14/2024 8:56 AM
--- NOTE | 2024-05-14 10:04 | Emergency Department Note ---
Impression & Plan Generalized weakness, Influenza, Elevated LFTs, Swelling of right lower extremity ED Provider Note NAME: FIDELIA SERRANO AGE: 79 SEX: Male INFORMANT: Patient ED PROVIDER(S): Arsenio Jonas MD CHIEF COMPLAINT: Leg weakness and cough PLAN: Disposition: Admitted Outpatient prescription management: none Referral: None MEDICAL DECISION MAKING: Patient presented with leg weakness. A workup was initiated. He had an unremarkable head CT. Chronic findings noted on lumbar spine CT. Patient had no back pain. Given his cough and personal care status patient had Bio[employer] testing performed and was found to have influenza. Patient's LFTs and kidney function were slightly elevated but baseline. Some mild congestion but no pneumonia on chest x-ray. Troponin was mildly elevated but difficult to assess in light of his chronic renal insufficiency. ECG showed a paced rhythm. His right leg was slightly larger than the left. Ultrasound imaging was performed and did reveal presence of DVT. Patient is currently anticoagulated. Given his generalized weakness which likely is related to his acute influenza illness and chronic medical status further management in the hospital was felt to be appropriate. Patient was found to have a pancreatic mass on outpatient CT imaging. He does not have any acute GI symptoms at this time. Consultation was made with Dr. Quinones of the [facility] service. He did ask for GI clearance for admission here versus transfer. Dr. Gaston felt the patient could be admitted here and treated for his influenza as he does not require emergent transfer at this time. Dr. Quinones did admit the patient for further management. Patient was given Tamiflu prior to admission. Care/management discussed with: manager coding Level of care consideration(s): After review of the information above and other included data, I feel the patient requires escalation of care to admission Triage Nursing notes: reviewed and agree them. Vital Signs: reviewed and remarkable for no significant abnormalities Additional History obtained from: none Chronic Medical/Social Conditions affecting care: Hypertension, diabetes Prior/ Outside/ External records reviewed: Outpatient CT imaging and GI consultation reviewed from earlier this week. 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 Referral to [facility]. Differential Diagnosis: Infection, dehydration, metabolic abnormality, hypo/hyperglycemia, electrolyte disturbance, anemia, hypoxia, cardiac sources, intracerebral event, toxicologic, neurologic, as well as other pathologies. Diagnostics, independently interpreted by me: ECG: Twelve-lead ECG reveals a atrial sensed ventricular paced rhythm at 73 bpm. Cardiac Monitoring: Cardiac monitoring ordered by me: The patient was placed on continuous cardiac monitoring and observed. It revealed a paced rhythm at 72 bpm. Medical decision rules: none Imaging studies: Chest x-ray reveals some mild vascular congestion but no evidence of focal infiltrate. HPI: 79 year old Male arrives for evaluation of weakness and cough. Patient states that this started 2 days ago. He has been dealing with a jaundiced problem and is being evaluated by gastroenterology for this. Patient had a CT scan done and states he has not felt well since that time. EMS was summoned to his personal long-term as they felt that he was confused. Patient states that he has chronic leg weakness and does use a wheelchair. He seems to be dealing with more weakness than usual. Patient also notes swelling which seems to be worse in the right leg. Patient has had some runny nose and cough as well. Denies any trauma or pain. Pt denies LOC, headache, fevers, chills, diaphoresis, visual changes, neck pain, chest pain, breathing difficulties, nausea, vomiting, abdominal pain, back pain, melena, hematochezia, urinary symptoms, numbness, lymphadenopathy, rash, or other complaints. PAST MEDICAL HISTORY: See Below, DVT, pulmonary embolism, diabetes, elevated LFTs, anticoagulation PAST SURGICAL HISTORY: See Below, SOCIAL HISTORY: See Below, retired HOME MEDICATIONS: See Below ALLERGIES: See Below VITALS: See Below PHYSICAL EXAMINATION: GENERAL: Awake, tired, [id number], in no distress HENT: Normocephalic, atraumatic. Oropharynx unremarkable. EYES: Normal conjunctiva. Sclera mildly icteric. NECK: Inspection normal. Non-tender. Supple. No nuchal rigidity. FROM. No masses. RESPIRATORY: Clear to auscultation. No wheezes. No rales. Normal respiratory effort. CARDIAC: Normal rate. Normal rhythm. No murmurs. No rubs. Extremities warm and well perfused. Pulses equal. No JVD. GI: Soft, non-distended. No tenderness to palpation. No rebound or guarding. No masses. RECTAL: Deferred. MUSCULOSKELETAL: Atraumatic. Chest examination reveals no tenderness. The back is symmetrical on inspection without obvious abnormality. There is no CVA tenderness to palpation. No joint edema. LOWER EXTREMITIES: Calves are equal size bilaterally and non-tender. 1+ edema on the right. Chronic venous discoloration. NEURO: Normal sensorium. Mild generalized weakness in the lower legs however weakness is symmetric. Mild decrease sensation in legs bilaterally but patient states he has neuropathy. Speech normal. SKIN: No rash but there is jaundice noted. PROCEDURES: none CRITICAL CARE: none OBSERVATION NOTE: none Past Med/Surg History Problem List (Updated 05/14/24 @ 13:40 by Saumya Sosa PA-C) DVT (deep venous thrombosis) Swelling of right lower extremity (Acute) Elevated LFTs (Acute) Influenza (Acute) Generalized weakness (Acute) Abnormal LFTs (Acute) Jaundice (Acute) History of DVT (deep vein thrombosis) Acute metabolic encephalopathy Scalp abscess (Acute) Cellulitis of scalp (Acute) Right otitis media Finger pain, left Encounter for screening colonoscopy Toe injury Traumatic loss of toenail of right great toe Vitamin D deficiency Bilateral pulmonary embolism Lumbar back pain with radiculopathy affecting left lower extremity Albuminuria Hypertension Diabetes type 2, uncontrolled Pulmonary nodule Sleep apnea (Chronic) Secondary hyperparathyroidism (Chronic) Morbid obesity (Chronic) Lumbar spinal stenosis (Chronic) Hypothyroidism (Chronic) Dyslipidemia (Chronic) Dysesthesia (Chronic) Diabetic peripheral 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) Depression (Chronic) Chronic reflux esophagitis (Chronic) Cardiac pacemaker (Chronic) CHF (congestive heart failure) (Chronic) Arteriosclerotic cardiovascular disease (Chronic) Anemia (Chronic) Background diabetic retinopathy associated with type 2 diabetes mellitus Hypomagnesemia Chronic anemia (Acute) Medical History Chronic kidney disease, stage III (moderate) Acute respiratory failure JUANPABLO (acute kidney injury) Colon polyps Elevated transaminase level Hematuria Tinea pedis of both feet Vitamin D deficiency Surgical History History of incision and drainage (12/15/23) History of colonoscopy History of tonsillectomy History of mandibular surgery History of cholecystectomy History of coronary artery stent placement History of cardiac cath History of cataract surgery Family History Father Lung cancer Brother Lung disease Lung cancer Denies family history of Ovarian cancer Prostate cancer Myocardial infarction Breast cancer Colorectal cancer Social History Smoking Status: Former smoker Age Started Using Tobacco: 20; Age Quit Using Tobacco: 21; Second Hand Exposure: Yes; Hx Alcohol Use: Yes Alcohol type: beer Alcohol Intake Frequency: Monthly or Less Alcohol Intake Frequency Comment: Socially Hx Substance Use: No Preferred Language: Argentine Communication Ability: Effective Visual Impairment: No Limitations Hearing Ability: Use of Hearing Aid Pump Mechanic Required: No Beliefs That Will Affect Care: None marital status: / Current Living Situation: Personal Care Facility current occupational status: retired 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 How many Children do You have: 2 Feels Safe at Home: Yes Childhood Exposure to Second-Hand Smoke: No Diet: regular Diet Comment: Regular Diet caffeine: No during the past year weight has: remained stable Dental Care, Regularly: No Physical Activity Frequency: Does not Exercise Seatbelt Use: sometimes Sunscreen Use: No Assistive Devices: Wheelchair Allergies Allergies Allergy/AdvReac Type Severity Reaction Status Date / Time cefaclor AdvReac Intermediate RASH Verified 05/14/24 14:48 oxycodone AdvReac Intermediate "I GET ALL Verified 05/14/24 14:48 GOOFY" Home Meds Home Medications Medication Instructions Recorded Confirmed sharps container-insulin syringe ##1 10/05/18 01/12/24 and needle 1 mL 30 gauge x 5/16" aspirin 81 mg tablet,delayed 81 mg PO QAM 05/28/21 05/14/24 release flash glucose scanning reader 07/04/21 01/12/24 (FreeStyle Maisha 2 Bushnell) lancets 30 gauge (OneTouch Delica 07/04/21 01/12/24 Plus Lancet) nitroglycerin 0.4 mg sublingual 0.4 mg sublingual Q5M PRN Chest 11/11/23 05/14/24 tablet Pain ondansetron 4 mg disintegrating 4 mg PO Q8H PRN Nausea And Vomiting 11/11/23 05/14/24 tablet pantoprazole 40 mg tablet,delayed 40 mg PO QAM 11/11/23 05/14/24 release empagliflozin 25 mg tablet 25 mg PO QAM 12/11/23 05/14/24 (Jardiance) tirzepatide 5 mg/0.5 mL 0 mg subcut WK 12/11/23 05/14/24 subcutaneous pen injector (Keyla) atorvastatin 80 mg tablet 80 mg PO HS 05/09/24 05/14/24 calcitriol 0.5 mcg capsule 0.5 mcg PO QAM 05/09/24 05/14/24 carbamide peroxide 6.5 % ear drops 5 - 10 drp otic (ear) BID 05/09/24 05/14/24 (Ear Wax Removal Drops) furosemide 20 mg tablet 10 mg PO QAM 05/09/24 05/14/24 gabapentin 300 mg capsule 300 mg PO HS 05/09/24 05/14/24 insulin degludec 100 unit/mL (3 0 unit subcut QAM 05/09/24 05/14/24 mL) subcutaneous pen (Tresiba FlexTouch U-100 insulin) levothyroxine 112 mcg capsule 112 mcg PO QAM 05/09/24 05/14/24 magnesium oxide 400 mg PO QAM 05/09/24 05/14/24 potassium chloride 10 mEq 10 meq PO QAM 05/09/24 05/14/24 tablet,extended release sertraline 50 mg tablet 75 mg PO QAM 05/09/24 05/14/24 terazosin 10 mg capsule 10 mg PO QAM 05/09/24 05/14/24 losartan 50 mg tablet 50 mg PO QAM 05/14/24 05/14/24 neomycin 1.75 mg-polymyxin 10,000 See Rx Instructions .Route .COMPLEX 05/14/24 05/14/24 unit-gramicidin 0.025mg/mL eye drops polyethylene glycol 3350 17 gram 17 g PO QAM 05/14/24 05/14/24 oral powder packet (ClearLax) Previous Rx's Medication Instructions Recorded flash glucose sensor (FreeStyle #2 ea 07/09/21 Maisha 2 Sensor kit) pen needle, diabetic 32 gauge x #100 ea 05/27/22/" (BD Ultra-Fine Micro Pen Needle) apixaban 5 mg tablet (Eliquis) 5 mg PO BID #180 tabs 04/28/23 amlodipine 5 mg tablet (Norvasc) 5 mg PO QAM #30 tabs 12/20/23 insulin lispro 100 unit/mL 1 sliding scale dose subcut 12/20/23 subcutaneous pen (Admelog SolLeonel USEASDIRECTD #0 mL U-) metoprolol succinate 50 mg 50 mg PO BID #60 tabs 12/20/23 tablet,extended release 24 hr sennosides 8.6 mg tablet (Senokot) 17.2 mg (2 x 8.6 mg) PO QAM #60 12/20/23 tabs cholestyramine-aspartame 4 gram 1 ea PO BID 2 weeks #60 ea 05/10/24 oral powder for susp in a packet (Prevalite) Results & Data (ED) Vital Signs Vital Signs - 24 hr 05/14/24 06:24 05/14/24 06:30 05/14/24 08:01 Temperature 37.1 C Temperature Source Oral Pulse Rate 70 77 Pulse Rate [Right Finger] Pulse Rate from SpO2 Sensor Pulse Rhythm Regular Pulse Strength Normal Respiratory Rate 24 Respiratory Effort / Characteristics Non-Labored Spontaneous Respiratory Depth Normal Respiratory Pattern Regular Blood Pressure 146/67 H 112/64 Blood Pressure [Right Arm] Blood Pressure Mean 93 83 Blood Pressure Mean [Right Arm] Pulse Oximetry 94 Oxygen Delivery Method Room Air Sepsis Recent Fever Within 48 Hours No Sepsis New/Unexplained Change in Mental Status N/A Sepsis Action Taken by Nursing No Action Required 05/14/24 08:15 05/14/24 08:15 05/14/24 08:15 Temperature Temperature Source Pulse Rate Pulse Rate [Right Finger] Pulse Rate from SpO2 Sensor Pulse Rhythm Pulse Strength Respiratory Rate Respiratory Effort / Characteristics Respiratory Depth Respiratory Pattern Blood Pressure 145/73 H 145/73 H 145/73 H Blood Pressure [Right Arm] Blood Pressure Mean 98 98 98 Blood Pressure Mean [Right Arm] Pulse Oximetry Oxygen Delivery Method Sepsis Recent Fever Within 48 Hours Sepsis New/Unexplained Change in Mental Status Sepsis Action Taken by Nursing 05/14/24 08:15 05/14/24 08:30 05/14/24 08:30 Temperature Temperature Source Pulse Rate 67 Pulse Rate [Right Finger] Pulse Rate from SpO2 Sensor Pulse Rhythm Pulse Strength Respiratory Rate 21 Respiratory Effort / Characteristics Respiratory Depth Respiratory Pattern Blood Pressure 152/67 H 152/67 H Blood Pressure [Right Arm] Blood Pressure Mean 106 106 Blood Pressure Mean [Right Arm] Pulse Oximetry Oxygen Delivery Method Sepsis Recent Fever Within 48 Hours Sepsis New/Unexplained Change in Mental Status Sepsis Action Taken by Nursing 05/14/24 08:30 05/14/24 08:30 05/14/24 08:30 Temperature Temperature Source Pulse Rate 67 Pulse Rate [Right Finger] Pulse Rate from SpO2 Sensor 66 Pulse Rhythm Pulse Strength Respiratory Rate 16 Respiratory Effort / Characteristics Respiratory Depth Respiratory Pattern Blood Pressure 152/67 H 152/67 H Blood Pressure [Right Arm] Blood Pressure Mean 106 106 Blood Pressure Mean [Right Arm] Pulse Oximetry 96 Oxygen Delivery Method Sepsis Recent Fever Within 48 Hours Sepsis New/Unexplained Change in Mental Status Sepsis Action Taken by Nursing 05/14/24 08:39 05/14/24 08:45 05/14/24 08:48 Temperature Temperature Source Pulse Rate 67 67 Pulse Rate [Right Finger] Pulse Rate from SpO2 Sensor 67 67 Pulse Rhythm Pulse Strength Respiratory Rate 24 19 Respiratory Effort / Characteristics Respiratory Depth Respiratory Pattern Blood Pressure 164/85 H Blood Pressure [Right Arm] Blood Pressure Mean 129 Blood Pressure Mean [Right Arm] Pulse Oximetry 94 93 Oxygen Delivery Method Sepsis Recent Fever Within 48 Hours Sepsis New/Unexplained Change in Mental Status Sepsis Action Taken by Nursing 05/14/24 09:15 05/14/24 09:15 05/14/24 09:27 Temperature Temperature Source Pulse Rate 66 Pulse Rate [Right Finger] Pulse Rate from SpO2 Sensor Pulse Rhythm Pulse Strength Respiratory Rate 22 Respiratory Effort / Characteristics Respiratory Depth Respiratory Pattern Blood Pressure 159/80 H 159/80 H Blood Pressure [Right Arm] Blood Pressure Mean 104 104 Blood Pressure Mean [Right Arm] Pulse Oximetry Oxygen Delivery Method Sepsis Recent Fever Within 48 Hours Sepsis New/Unexplained Change in Mental Status Sepsis Action Taken by Nursing 05/14/24 09:30 05/14/24 09:31 05/14/24 09:45 Temperature Temperature Source Pulse Rate 70 Pulse Rate [Right Finger] Pulse Rate from SpO2 Sensor Pulse Rhythm Pulse Strength Respiratory Rate 16 Respiratory Effort / Characteristics Respiratory Depth Respiratory Pattern Blood Pressure 181/79 H 167/81 H Blood Pressure [Right Arm] Blood Pressure Mean 91 91 Blood Pressure Mean [Right Arm] Pulse Oximetry Oxygen Delivery Method Sepsis Recent Fever Within 48 Hours Sepsis New/Unexplained Change in Mental Status Sepsis Action Taken by Nursing 05/14/24 09:45 05/14/24 10:09 05/14/24 10:12 Temperature Temperature Source Pulse Rate 65 65 Pulse Rate [Right Finger] Pulse Rate from SpO2 Sensor Pulse Rhythm Pulse Strength Respiratory Rate 21 18 Respiratory Effort / Characteristics Respiratory Depth Respiratory Pattern Blood Pressure 167/81 H Blood Pressure [Right Arm] Blood Pressure Mean 91 Blood Pressure Mean [Right Arm] Pulse Oximetry Oxygen Delivery Method Sepsis Recent Fever Within 48 Hours Sepsis New/Unexplained Change in Mental Status Sepsis Action Taken by Nursing 05/14/24 10:15 05/14/24 10:15 05/14/24 10:15 Temperature Temperature Source Pulse Rate Pulse Rate [Right Finger] Pulse Rate from SpO2 Sensor Pulse Rhythm Pulse Strength Respiratory Rate Respiratory Effort / Characteristics Respiratory Depth Respiratory Pattern Blood Pressure 165/83 H 165/83 H 165/83 H Blood Pressure [Right Arm] Blood Pressure Mean 140 140 140 Blood Pressure Mean [Right Arm] Pulse Oximetry Oxygen Delivery Method Sepsis Recent Fever Within 48 Hours Sepsis New/Unexplained Change in Mental Status Sepsis Action Taken by Nursing 05/14/24 10:17 05/14/24 10:24 05/14/24 10:30 Temperature Temperature Source Pulse Rate 63 65 Pulse Rate [Right Finger] Pulse Rate from SpO2 Sensor Pulse Rhythm Pulse Strength Respiratory Rate 17 Respiratory Effort / Characteristics Respiratory Depth Respiratory Pattern Blood Pressure 161/82 H Blood Pressure [Right Arm] Blood Pressure Mean 120 Blood Pressure Mean [Right Arm] Pulse Oximetry Oxygen Delivery Method Sepsis Recent Fever Within 48 Hours Sepsis New/Unexplained Change in Mental Status Sepsis Action Taken by Nursing 05/14/24 10:30 05/14/24 10:38 05/14/24 10:45 Temperature Temperature Source Pulse Rate 64 Pulse Rate [Right Finger] Pulse Rate from SpO2 Sensor Pulse Rhythm Pulse Strength Respiratory Rate 18 Respiratory Effort / Characteristics Respiratory Depth Respiratory Pattern Blood Pressure 161/82 H 162/77 H Blood Pressure [Right Arm] Blood Pressure Mean 120 110 Blood Pressure Mean [Right Arm] Pulse Oximetry Oxygen Delivery Method Sepsis Recent Fever Within 48 Hours Sepsis New/Unexplained Change in Mental Status Sepsis Action Taken by Nursing 05/14/24 10:59 05/14/24 11:00 05/14/24 13:08 Temperature Temperature Source Pulse Rate 90 90 Pulse Rate [Right Finger] Pulse Rate from SpO2 Sensor Pulse Rhythm Pulse Strength Respiratory Rate 23 21 Respiratory Effort / Characteristics Respiratory Depth Respiratory Pattern Blood Pressure 153/89 H Blood Pressure [Right Arm] Blood Pressure Mean 112 Blood Pressure Mean [Right Arm] Pulse Oximetry Oxygen Delivery Method Sepsis Recent Fever Within 48 Hours Sepsis New/Unexplained Change in Mental Status Sepsis Action Taken by Nursing 05/14/24 13:17 05/14/24 13:42 05/14/24 13:42 Temperature Temperature Source Pulse Rate 90 Pulse Rate [Right Finger] 90 Pulse Rate from SpO2 Sensor Pulse Rhythm Pulse Strength Respiratory Rate 19 18 Respiratory Effort / Characteristics Non-Labored Spontaneous Respiratory Depth Normal Respiratory Pattern Blood Pressure 129/89 Blood Pressure [Right Arm] 129/89 Blood Pressure Mean 110 Blood Pressure Mean [Right Arm] 102 Pulse Oximetry 94 Oxygen Delivery Method Room Air Sepsis Recent Fever Within 48 Hours Sepsis New/Unexplained Change in Mental Status Sepsis Action Taken by Nursing 05/14/24 13:42 05/14/24 13:42 05/14/24 13:45 Temperature Temperature Source Pulse Rate 90 Pulse Rate [Right Finger] Pulse Rate from SpO2 Sensor Pulse Rhythm Pulse Strength Respiratory Rate 17 Respiratory Effort / Characteristics Respiratory Depth Respiratory Pattern Blood Pressure 129/89 129/89 Blood Pressure [Right Arm] Blood Pressure Mean 110 110 Blood Pressure Mean [Right Arm] Pulse Oximetry Oxygen Delivery Method Sepsis Recent Fever Within 48 Hours Sepsis New/Unexplained Change in Mental Status Sepsis Action Taken by Nursing 05/14/24 13:46 05/14/24 13:46 05/14/24 13:57 Temperature Temperature Source Pulse Rate 90 Pulse Rate [Right Finger] Pulse Rate from SpO2 Sensor Pulse Rhythm Pulse Strength Respiratory Rate 18 Respiratory Effort / Characteristics Respiratory Depth Respiratory Pattern Blood Pressure 110/79 110/79 Blood Pressure [Right Arm] Blood Pressure Mean 84 84 Blood Pressure Mean [Right Arm] Pulse Oximetry Oxygen Delivery Method Sepsis Recent Fever Within 48 Hours Sepsis New/Unexplained Change in Mental Status Sepsis Action Taken by Nursing 05/14/24 14:00 05/14/24 14:06 05/14/24 14:09 Temperature Temperature Source Pulse Rate 90 90 Pulse Rate [Right Finger] Pulse Rate from SpO2 Sensor Pulse Rhythm Pulse Strength Respiratory Rate 22 33 H Respiratory Effort / Characteristics Respiratory Depth Respiratory Pattern Blood Pressure 132/88 Blood Pressure [Right Arm] Blood Pressure Mean 103 Blood Pressure Mean [Right Arm] Pulse Oximetry Oxygen Delivery Method Sepsis Recent Fever Within 48 Hours Sepsis New/Unexplained Change in Mental Status Sepsis Action Taken by Nursing 05/14/24 14:15 05/14/24 14:30 05/14/24 14:30 Temperature Temperature Source Pulse Rate 90 Pulse Rate [Right Finger] Pulse Rate from SpO2 Sensor Pulse Rhythm Pulse Strength Respiratory Rate 24 Respiratory Effort / Characteristics Respiratory Depth Respiratory Pattern Blood Pressure 127/88 126/89 Blood Pressure [Right Arm] Blood Pressure Mean 109 108 Blood Pressure Mean [Right Arm] Pulse Oximetry Oxygen Delivery Method Sepsis Recent Fever Within 48 Hours Sepsis New/Unexplained Change in Mental Status Sepsis Action Taken by Nursing 05/14/24 14:30 05/14/24 14:30 05/14/24 14:30 Temperature Temperature Source Pulse Rate Pulse Rate [Right Finger] Pulse Rate from SpO2 Sensor Pulse Rhythm Pulse Strength Respiratory Rate Respiratory Effort / Characteristics Respiratory Depth Respiratory Pattern Blood Pressure 126/89 126/89 126/89 Blood Pressure [Right Arm] Blood Pressure Mean 108 108 108 Blood Pressure Mean [Right Arm] Pulse Oximetry Oxygen Delivery Method Sepsis Recent Fever Within 48 Hours Sepsis New/Unexplained Change in Mental Status Sepsis Action Taken by Nursing 05/14/24 15:00 05/14/24 15:45 05/14/24 16:15 Temperature Temperature Source Pulse Rate 90 90 90 Pulse Rate [Right Finger] Pulse Rate from SpO2 Sensor Pulse Rhythm Pulse Strength Respiratory Rate 20 21 20 Respiratory Effort / Characteristics Respiratory Depth Respiratory Pattern Blood Pressure 138/90 127/91 137/92 Blood Pressure [Right Arm] Blood Pressure Mean 125 107 122 Blood Pressure Mean [Right Arm] Pulse Oximetry 97 94 96 Oxygen Delivery Method Sepsis Recent Fever Within 48 Hours Sepsis New/Unexplained Change in Mental Status Sepsis Action Taken by Nursing Laboratory Data 05/14/24 06:25 05/14/24 06:25 Lab Results 05/14/24 05/14/24 05/14/24 Range/Units 06:25 07:43 08:05 WBC 5.30 (4.8-10.8) K/ul RBC 4.35 L (4.70-6.10) M/uL Hgb 11.2 L (14.0-18.0) g/dl Hct 34.5 L (42.0-52.0) % MCV 79.3 L (80.0-100.0) fL MCH 25.7 (25.0-34.0) pg MCHC 32.5 (32.0-36.0) g/dL RDW Std Deviation 54.5 H (36.4-46.3) fL RDW Coeff of Rito 18.8 H (11.5-14.5) % Plt Count 118 L (130-400) K/uL MPV 11.2 (9.4-12.4) fL Immature Gran % (Auto) 0.2 % Neut % (Auto) 70.9 % Lymph % (Auto) 9.2 % [place] % (Auto) 12.5 % Eos % (Auto) 6.4 % Baso % (Auto) 0.8 % Neut # (Auto) 3.76 (1.40-6.50) K/uL Lymph # (Auto) 0.49 L (1.20-3.40) K/uL [place] # (Auto) 0.66 H (0.11-0.59) K/uL Eos # (Auto) 0.34 (0.00-0.50) K/uL Baso # (Auto) 0.04 (0.00-0.20) K/uL Immature Gran # (Auto) 0.01 (0.01-0.20) K/uL PT (9.0-12.0) Seconds INR (0.9-1.1) Sodium 135 L (136-145) mmol/L Potassium 3.4 L (3.5-5.1) mmol/L Chloride 108 H (98-107) mmol/L Carbon Dioxide 20 L (21-32) mmol/L Anion Gap 7 (3-11) BUN 18 (6-23) mg/dl Creatinine 2.27 H (0.6-1.4) mg/dl Est Cr Clr Drug Dosing 32.9 ml/min eGFR 28.98 BUN/Creatinine Ratio 7.9 L (10-20) Glucose 182 H (70-99(Fasting)) mg/dl Calcium 9.0 (8.6-10.3) mg/dl Magnesium 2.0 (1.7-2.4) mg/dl Total Bilirubin 5.9 H (0.2-1.0) mg/dl AST 207 H (13-39) U/L ALT 89 H (7-52) U/L Alkaline Phosphatase 1105 H (34-104) U/L Ammonia 42.0 (18-72) umol/L Troponin I High Sens 54.5 H* (0-20) pg/ml Total Protein 7.0 (6.0-8.3) gm/dl Albumin 3.2 L (3.4-5.0) gm/dl Globulin 3.8 (2.5-4.0) gm/dl Albumin/Globulin Ratio 0.8 L (0.9-2) TSH 0.663 (0.300-4.500) uIu/ml Urine Color Dark Yellow Urine Appearance Turbid A (Clear) Urine pH 5.5 (4.5-7.5) Ur Specific [place] 1.021 (1.000-1.030) Urine Protein 3+ H (Negative) Urine Glucose (UA) 2+ H (Negative) Urine Ketones Negative (Negative) Urine Blood 3+ H (Negative) Urine Nitrite Negative (Negative) Urine Bilirubin 2+ H (Negative) Urine Urobilinogen Negative (Negative) Ur Leukocyte Esterase Negative (Negative) Urine WBC (Auto) 0-5 (0-5) /hpf Urine RBC (Auto) 0-2 (0-2) /hpf U Hyaline Cast (Auto) 3-5 H (0-2) /lpf U Epithel Cells (Auto) 0-2 (0-2) /hpf Urine Bacteria (Auto) None Seen (None Seen) Granular Casts Present A (None Prsent) /lpf Adenovirus (PCR) Not Detected (NotDetected) B. pertussis DNA (PCR) Not Detected (NotDetected) B.parapertussis DNA PCR Not Detected (NotDetected) C. pneumoniae DNA (PCR) Not Detected (NotDetected) Coronavirus OC43 (PCR) Not Detected (NotDetected) Coronavirus HKU1 (PCR) Not Detected (NotDetected) Coronavirus 229E (PCR) Not Detected (NotDetected) SARS-CoV-2 (PCR) Not Detected (NotDetected) Coronavirus NL63 (PCR) Not Detected (NotDetected) Human Metapneumovir PCR Not Detected (NotDetected) Influenza A (H3) PCR DETECTED A (NotDetected) Influenza Type B (PCR) Not Detected (NotDetected) M. pneumoniae (PCR) Not Detected (NotDetected) Parainfluenza 1 (PCR) Not Detected (NotDetected) Parainfluenza 2 (PCR) Not Detected (NotDetected) Parainfluenza 3 (PCR) Not Detected (NotDetected) Parainfluenza 4 (PCR) Not Detected (NotDetected) RSV (PCR) Not Detected (NotDetected) Entero/Rhino (PCR) Not Detected (NotDetected) 05/14/24 05/14/24 05/14/24 Range/Units 08:58 10:05 13:05 WBC (4.8-10.8) K/ul RBC (4.70-6.10) M/uL Hgb (14.0-18.0) g/dl Hct (42.0-52.0) % MCV (80.0-100.0) fL MCH (25.0-34.0) pg MCHC (32.0-36.0) g/dL RDW Std Deviation (36.4-46.3) fL RDW Coeff of Rito (11.5-14.5) % Plt Count (130-400) K/uL MPV (9.4-12.4) fL Immature Gran % (Auto) % Neut % (Auto) % Lymph % (Auto) % [place] % (Auto) % Eos % (Auto) % Baso % (Auto) % Neut # (Auto) (1.40-6.50) K/uL Lymph # (Auto) (1.20-3.40) K/uL [place] # (Auto) (0.11-0.59) K/uL Eos # (Auto) (0.00-0.50) K/uL Baso # (Auto) (0.00-0.20) K/uL Immature Gran # (Auto) (0.01-0.20) K/uL PT 15.6 H (9.0-12.0) Seconds INR 1.5 H (0.9-1.1) Sodium (136-145) mmol/L Potassium (3.5-5.1) mmol/L Chloride (98-107) mmol/L Carbon Dioxide (21-32) mmol/L Anion Gap (3-11) BUN (6-23) mg/dl Creatinine (0.6-1.4) mg/dl Est Cr Clr Drug Dosing ml/min eGFR BUN/Creatinine Ratio (10-20) Glucose (70-99(Fasting)) mg/dl Calcium (8.6-10.3) mg/dl Magnesium (1.7-2.4) mg/dl Total Bilirubin (0.2-1.0) mg/dl AST (13-39) U/L ALT (7-52) U/L Alkaline Phosphatase (34-104) U/L Ammonia (18-72) umol/L Troponin I High Sens Cancelled 53.3 H* (0-20) pg/ml Total Protein (6.0-8.3) gm/dl Albumin (3.4-5.0) gm/dl Globulin (2.5-4.0) gm/dl Albumin/Globulin Ratio (0.9-2) TSH (0.300-4.500) uIu/ml Urine Color Urine Appearance (Clear) Urine pH (4.5-7.5) Ur Specific [place] (1.000-1.030) Urine Protein (Negative) Urine Glucose (UA) (Negative) Urine Ketones (Negative) Urine Blood (Negative) Urine Nitrite (Negative) Urine Bilirubin (Negative) Urine Urobilinogen (Negative) Ur Leukocyte Esterase (Negative) Urine WBC (Auto) (0-5) /hpf Urine RBC (Auto) (0-2) /hpf U Hyaline Cast (Auto) (0-2) /lpf U Epithel Cells (Auto) (0-2) /hpf Urine Bacteria (Auto) (None Seen) Granular Casts (None Prsent) /lpf Adenovirus (PCR) (NotDetected) B. pertussis DNA (PCR) (NotDetected) B.parapertussis DNA PCR (NotDetected) C. pneumoniae DNA (PCR) (NotDetected) Coronavirus OC43 (PCR) (NotDetected) Coronavirus HKU1 (PCR) (NotDetected) Coronavirus 229E (PCR) (NotDetected) SARS-CoV-2 (PCR) (NotDetected) Coronavirus NL63 (PCR) (NotDetected) Human Metapneumovir PCR (NotDetected) Influenza A (H3) PCR (NotDetected) Influenza Type B (PCR) (NotDetected) M. pneumoniae (PCR) (NotDetected) Parainfluenza 1 (PCR) (NotDetected) Parainfluenza 2 (PCR) (NotDetected) Parainfluenza 3 (PCR) (NotDetected) Parainfluenza 4 (PCR) (NotDetected) RSV (PCR) (NotDetected) Entero/Rhino (PCR) (NotDetected) Administered Medications Lactated Ringer's (Lr) 1,000 mls @ 80 mls/hr IV .[id number] DARREN Stop: 05/15/24 13:44 Last Admin: 05/14/24 15:50 Dose: 80 mls/hr Documented By: ARS Discontinued Medications Oseltamivir Phosphate (Oseltamivir Phosphate 75 Mg Cap) 75 mg PO NOW STA; Protocol Stop: 05/14/24 09:12 Last Admin: 05/14/24 13:04 Dose: 75 mg Documented By: OSWALD Oseltamivir Phosphate (Oseltamivir Phosphate 75 Mg Cap) Confirm Administered Dose 75 mg PO .STK-MED ONE Stop: 05/14/24 11:18 Last Admin: 05/14/24 13:03 Dose: Not Given Documented By: OSWALD Potassium Chloride (Potassium Chloride Crtab 20 Meq Tabcr) 20 meq PO NOW STA Stop: 05/14/24 13:25 Last Admin: 05/14/24 13:43 Dose: 20 meq Documented By: MR Imaging Data Radiologist's Impression: Chest X-Ray 05/14/24 06:27 EXAM: XR chest 1V portable CLINICAL HISTORY: Weakness. TECHNIQUE: X-ray image of the chest is obtained in AP projection. COMPARISON: Previous CR dated 12/10/2023. FINDINGS: Pulmonary Parenchyma: Dual leads slip caster is seen. Prominent both usama with perihilar and basal increased broncho vascular markings suggesting lung congestion. A small left apical calcified nodule is seen. No evidence of consolidation, collapse, or focal opacities. No evidence of pleural effusion or pleural thickening. Heart and Mediastinum: Heart size can not be assessed due to the AP projection. No mediastinal widening or masses. No hilar or mediastinal lymphadenopathy. Bony Thorax: Bony thorax appears intact without fractures or deformities. Soft Tissues: Soft tissues overlying the chest wall are unremarkable. IMPRESSION: Prominent both usama with perihilar and basal increased broncho vascular markings suggesting lung congestion. 1. Small left apical calcified nodule. 2. No gross interval changes in comparison with the previous study. Electronically signed by Leni Rivera 05-14-2024 08:[address] 05/14/24 07:35 CT head/brain wo con CLINICAL HISTORY: 79 years-old Male with weakness. Acute weakness TECHNIQUE: Multiple axial CT images of the head were obtained without contrast. A dose lowering technique was utilized adhering to the principles of ALARA. COMPARISON: 12/10/2023, 05/28/2021 FINDINGS: No acute intracranial hemorrhage, midline shift, intracranial mass, hydrocephalus, territorial ischemia or abnormal extra-axial collection. There is a large area of encephalomalacia within the right frontal lobe. Age-related involutional changes. White matter hypodensities suggest chronic microvascular ischemic disease. Cerebral vascular calcifications. Chronic appearing bilateral lacunar infarcts. The calvarium is intact. Prior bilateral lens repair. Paranasal sinuses are normally clear. Small right and moderate left mastoid and middle ear effusions. IMPRESSION: 1. No acute intracranial abnormality or calvarial fracture. 2. Large chronic right frontal lobe infarct. 3. Chronic appearing basal ganglia lacunar infarcts. 4. Left greater than right mastoid and middle ear effusions. ACT 112: Negative or not required by law. The above report was generated using voice recognition software. It may contain grammatical, syntax or spelling errors. Electronically signed by: Rakan Francis M.D. 05/14/2024 8:[address] 05/14/24 07:35 CT lumbar spine wo con HISTORY: 79 years-old Male leg weakness acute low back pain with lower extremity weakness COMPARISON: CT abdomen and pelvis 05/12/2024, CT lumbar spine 11/02/2022 TECHNIQUE: Multiple axial CT images of the lumbar spine were obtained without IV contrast. A dose lowering technique was used consistent with the principals of ALARA. FINDINGS: No acute fracture or subluxation. Chronic endplate irregularity again noted at L4-L5 and L5-S1. The L5-S1 level is partially excluded from the [id number]. Severe intervertebral disc space narrowing with degenerative partial bony fusion at L5-S1 redemonstrated. Moderate multilevel spondylitic spurring and facet arthrosis with mild multilevel intervertebral disc space narrowing. Posterior disc osteophyte complex redemonstrated at L3-L4 causing moderate to severe central canal stenosis. Posterior annular disc bulging at L4-L5 causes severe central canal stenosis, unchanged. Multilevel neural foraminal narrowing is again noted which is severe bilaterally at L4-L5, and moderate bilaterally at L5-S1. Superior endplate Schmorl's node at L4 has progressed from the 2022 comparison. Atherosclerosis of the aorta. The intra-abdominal structures are better seen on the recent CT abdomen and pelvis study. IMPRESSION: 1. No acute fracture or subluxation. 2. Chronic endplate irregularity of the lower lumbar spine. 3. Central canal and neural foraminal narrowing of the lower lumbar spine is similar to mildly worsened compared to the myelogram study from 11/02/2022. 4. Subacute to chronic appearing superior endplate Schmorl's node at L4 has progressed from 11/02/2022. ACT 112: Negative or not required by law. The above report was generated using voice recognition software. It may contain grammatical, syntax or spelling errors. Electronically signed by: Rakan Francis M.D. 05/14/2024 8:56 AM Venous Doppler Study 05/14/24 09:11 US venous doppler LE RT HISTORY: 79 years-old Male right leg swelling acute pain and swelling of the right leg COMPARISON: None TECHNIQUE: Multiple real-time sonographic images of the right lower extremity deep venous structures were obtained assessing grayscale appearance, color and spectral flow. FINDINGS: Partially occlusive thrombus extends from the superficial femoral vein into the popliteal vein. Calf veins are not well visualized. Spectral waveforms noted within the visualized patent veins of the right lower leg suggestive of elevated right heart pressure. IMPRESSION: Right lower extremity DVT, likely acute or subacute. ACT 112: Negative or not required by law. The above report was generated using voice recognition software. It may contain grammatical, syntax or spelling errors. Electronically signed by: Rakan Francis M.D. 05/14/2024 12:15 PM Discharge Plan Visit Data Chief Complaint: Leg Weakness, Bilateral Stated Complaint: Jaundice, Leg Weakness, Urinary Incontinence ED Provider: Arsenio Jonas Discharge Problem: Generalized weakness, Influenza, Elevated LFTs, Swelling of right lower extremity Patient Disposition: Admitted As Inpatient Discharge Instructions Interventions: ED Discharge Assessment Last Done: 05/14/24 16:38 Forms Stand Alone Forms: My [facility] [place] [email or web address] Prescriptions Prescriptions: No Action (DME) FreeStyle Maisha 2 Sensor Kit See Rx Instructions .Route Qty: 2 11RF Rx Instructions: Change every 14 days pantoprazole 40 mg tablet,delayed release (DR/EC) 40 mg PO QAM nitroglycerin 0.4 mg tablet, sublingual 0.4 mg sublingual Q5M PRN (Reason: Chest Pain) Rx Instructions: do not exceed 3 doses per episode ondansetron 4 mg tablet,disintegrating 4 mg PO Q8H PRN (Reason: Nausea And Vomiting) (DME) nany bin-insulin syrin-needl 1 mL 30 gauge x 5/16" syringe See Dose Instructions .ROUTE .MEDSUPPLY Qty: 1 Rx Instructions: As directed (DME) lancets [OneTouch Delica Plus Lancet] 30 gauge misc See Rx Instructions .ROUTE .MEDSUPPLY Rx Instructions: Test blood sugar once daily PRN (DME) FreeStyle Maisha 2 [place] Misc See Rx Instructions .Route Rx Instructions: As directed Eliquis 5 mg tablet 5 mg PO BID Qty: 180 1RF Rx Instructions: 5 mg po BID (DME) pen needle, diabetic [BD Ultra-Fine Micro Pen Needle] 32 gauge x 1/4" needle See Rx Instructions .Route Qty: 100 3RF Rx Instructions: use twice daily aspirin 81 mg Tablet,Delayed Release (Dr/Ec) 81 mg PO QAM Jardiance 25 mg tablet 25 mg PO QAM Hold Instructions: Provider's Order due to renal failure. will defer to PCP as to when to resume Mounjaro 5 mg/0.5 mL pen injector 0 mg SUBCUT WK Hold Instructions: Provider's Order holding due to hepatitis Rx Instructions: Currently on hold/suspended through 06/03/24. Original Directions: 5mg once weekly on Wed amlodipine [Norvasc] 5 mg Tablet 5 mg PO QAM Qty: 30 2RF sennosides [Senokot] 8.6 mg Tablet 17.2 mg PO QAM Qty: 60 2RF metoprolol succinate 50 mg tablet extended release 24 hr 50 mg PO BID Qty: 60 2RF insulin lispro [Admelog SoloStar U-100 Insulin] 100 unit/mL insulin pen 1 sliding scale dose subcut USEASDIRECTD Qty: 0 0RF Rx Instructions: SS before meals and at Bedtime: 151-200=4 units; 201-250=6 units; 251- 300=10 units; 301-350 = 12 units; 351-400= 15 units; 401 or greater give 15 units and call physician. Ear Wax Removal Drops 6.5 % Drops 5 - 10 drp OTIC (EAR) BID atorvastatin 80 mg tablet 80 mg PO HS potassium chloride 10 mEq tablet extended release 10 meq PO QAM calcitriol 0.5 mcg capsule 0.5 mcg PO QAM gabapentin 300 mg capsule 300 mg PO HS furosemide 20 mg tablet 10 mg PO QAM sertraline 50 mg tablet 75 mg PO QAM terazosin 10 mg capsule 10 mg PO QAM Rx Instructions: TAKE 1 CAPSULE DAILY levothyroxine 112 mcg capsule 112 mcg PO QAM insulin degludec [Tresiba FlexTouch U-100] 100 unit/mL (3 mL) insulin pen 0 unit subcut QAM Hold Instructions: Provider's Order Blood sugars are controlled. will hold until blood sugars rise. may need a lower dose. Rx Instructions: Currently on hold/suspended through 06/03/24. Original Directions: 40units subcut every morning magnesium oxide 400 mg magnesium tablet 400 mg PO QAM cholestyramine-aspartame [Prevalite] 4 gram Powder In Packet 1 ea PO BID 14 Days Qty: 60 0RF Rx Instructions: Start Date 05/10/24 x14 day supply losartan 50 mg tablet 50 mg PO QAM polyethylene glycol 3350 [ClearLax] 17 gram Powder In Packet 17 g PO QAM [id number]-hvdtylbho-pwbnqvjhyp 1.75 mg-10,000 unit-0.025mg/mL drops See Rx Instructions .ROUTE .COMPLEX Rx Instructions: Instill 2 drops into affected ear TID Referrals Referrals: Alek Vera DO [Primary Care Provider] -
[2024-05-14 10:07] LABS: Appearance Urine Turbid (Clear); Bacteria Urine Automated None Seen (None Seen); Bilirubin Urine 2+ (Negative); Blood Urine 3+ (Negative); Color Urine Dark Yellow; Epithelial Cell Urine Auto 0-2 /hpf (0-2); Glucose Urine UA 2+ (Negative); Granular Casts Urine Present /lpf (None Prsent); Ketones Urine Negative (Negative); Leukocyte Esterase Urine Negative (Negative); Nitrite Urine Negative (Negative); Protein Urine 3+ (Negative); RBC Urine Automated 0-2 /hpf (0-2); Specific Gravity Urine 1.021 (1.000-1.030); Urobilinogen Urine Negative (Negative); WBC Urine Automated 0-5 /hpf (0-5); pH Urine 5.5 (4.5-7.5)
--- NOTE | 2024-05-14 12:17 | Ultrasound Report ---
US venous doppler LE RT HISTORY: 79 years-old Male right leg swelling acute pain and swelling of the right leg COMPARISON: None TECHNIQUE: Multiple real-time sonographic images of the right lower extremity deep venous structures were obtained assessing grayscale appearance, color and spectral flow. FINDINGS: Partially occlusive thrombus extends from the superficial femoral vein into the popliteal vein. Calf veins are not well visualized. Spectral waveforms noted within the visualized patent veins of the rig ht lower leg suggestive of elevated right heart pressure. IMPRESSION: Right lower extremity DVT, likely acute or subacute. ACT 112: Negative or not required by law. The above report was generated using voice recognition software. It may contain grammatical, syntax o r spelling errors. Electronically signed by: Raakn Francis M.D. 05/14/2024 12:15 PM
[2024-05-14] MEDS: OSELTAMIVIR PHOSPHATE 75 MG CAP PO ONE (13:03)
[2024-05-14] MEDS: OSELTAMIVIR PHOSPHATE 75 MG CAP PO STA (13:04)
--- NOTE | 2024-05-14 13:34 | History & Physical Report ---
Date of Service May 14, 2024 Assessment & Plan (1) Influenza: (2) Generalized weakness: (3) Elevated LFTs: (4) DVT (deep venous thrombosis): (5) Hypokalemia: (6) Diabetic peripheral neuropathy associated with type 2 diabetes mellitus: Plan This is a 79 year old gentleman with past medical history of DVT, Type 2 Diabetes, depression, hypertension, esophagitis who presented to the ED on 05/14/24 with complaints of weakness. Patient recently discharged from hospital on 05/10 for transaminitis/jaundice w/ recommendations to follow up with GI. on 05/12 patient presented to hospital for CTAP and has not felt well since. #Influenza A/weakness Head CT - no acute intracranial abnormality/calvarial fx. large chronic right frontal lobe infarct. chronic appearing basal ganglia lacunar infarcts. L > R mastoid & middle ear effusions CXR - no gross interval changes since previous study Lumbar spine CT - no acute fx/subluxation. chronic endplate irregularity of lower lumbar spine. central canal and neural foraminal narrowing of lower lumbar spine is similar vs mildly worsened from myelogram in 10/2022. Subacute to chronic appearing superior endplate Schmorl's node at L4 has progressed from 10/2022. Biofire + for Flu A CBC w/o leukocytosis BMP w/ K of 3.4, Creatinine 2.27 Troponin 54.5 --> 53.3, likely secondary to demand ischemia. Patient endorses no CP and EKG w/o ischemic changes Continue Tamiflu 1L LR, promote gentle hydration hypertonic saline nebs BID CXR w/o findings for pneumonia, defer abx at this time. #DVT Doppler showed acute vs subacute DVT in right lower extremity Patient w/ hx of DVT in right lower extremity per imaging in 2023 & 2021 Physical exam does not reveal overt worsened edema on R lower extremity vs Left. patient also without pain and per patient does not feel that his leg is more swollen. Continue Eliquis BID #CKD/hypokalemia creatinine 2.27, K 3.4 on admission Creatinine appears within baseline of 2.1-2.3 s/p 20meq K in ED Mag 2.0 s/p 1 LR - provide gentle fluid rehydration Recheck BMP in AM #Transaminitis CT w/ IV contrast outpatient on 05/12 showed concerning findings for pancreatic head mass Per GI - patient will require ERCP/EUS outpatient TB 5.9, AST/ALT 207/89, Alk phos 1105 - continue to trend while inpatient. Continue Cholestyramine for pruritus from jaundice Hold statin and Monjuaro - these medications have been known to elevated LFT's #Type 2 Diabetes On Insulin, Saravananmark anthonyChana mccarthychris A1c 05/10 - 7.5% Sliding scale w/ goal 110-160 w/ CF of 35 and carb ratio 10 - adjust as ne cessary. Chronic conditions: Neuropathy: gabapentin Hypothyroidism: Levothyroxine HTN: metoprolol, Hold Losartan and furosemide GERD: PPI Mental Health: Sertraline DVT prophylaxis: Eliquis Code: full Case discussed with Dr. Quinones at time of admission Updated both of patient's daughters via phone at time of admission w/ plan of care. History of Present Illness Primary Care Provider: Alek Vera DO This is a 79 year old gentleman with past medical history of DVT, Type 2 Diabetes, depression, hypertension, esophagitis who presented to the ED on 05/14/24 with complaints of weakness. Patient was seen and examined at bedside. Patient reports that over the last two days he has developed worsening weakness in his lower extremities, a cough, and runny nose. He reports he came to the hospital for a CT scan on 05/12 and has not felt well since. He denies any chest pain, shortness of breath, fevers, or chills. denies any abdominal pain, nausea, vomiting. He does not feel his lower extremities are painful or appear more swollen. He states he has a history of a DVT and is compliant with his medications. At baseline patient does use a wheelchair due to his leg weakness. While in the ED he was found to be positive for influenza A and was given a dose of Tamiflu. He underwent a doppler US that revealed acute vs subacute DVT in right lower extremity. He had a negative CXR. He had a head CT that revealed no acute intracranial abnormality or calvarial fracture. Lumbar spine CT without fracture or subluxation Code discussion w/ patient and he did confirm that he is a full code. Allergies Allergy/AdvReac Type Severity Reaction Status Date / Time cefaclor AdvReac Intermediate RASH Verified 05/14/24 14:48 oxycodone AdvReac Intermediate "I GET ALL Verified 05/14/24 14:48 GOOFY" Home Medications Medication Instructions Recorded Confirmed Type sharps container-insulin syringe ##1 10/05/18 01/12/24 History and needle 1 mL 30 gauge x /" aspirin 81 mg tablet,delayed 81 mg PO QAM 05/28/21 05/14/24 History release flash glucose scanning reader 07/04/21 01/12/24 History (FreeStyle Maisha 2 Freedom) lancets 30 gauge (OneTouch Delica 07/04/21 01/12/24 History Plus Lancet) flash glucose sensor (FreeStyle #2 ea 07/09/21 01/12/24 Rx Maisha 2 Sensor kit) pen needle, diabetic 32 gauge x #100 ea 05/27/22 01/12/24 Rx 1/4" (BD Ultra-Fine Micro Pen Needle) apixaban 5 mg tablet (Eliquis) 5 mg PO BID #180 tabs 04/28/23 05/14/24 Rx nitroglycerin 0.4 mg sublingual 0.4 mg sublingual Q5M PRN Chest 11/11/23 05/14/24 History tablet Pain ondansetron 4 mg disintegrating 4 mg PO Q8H PRN Nausea And Vomiting 11/11/23 05/14/24 History tablet pantoprazole 40 mg tablet,delayed 40 mg PO QAM 11/11/23 05/14/24 History release empagliflozin 25 mg tablet 0 mg PO QAM 12/11/23 05/14/24 History (Jardiance) tirzepatide 5 mg/0.5 mL 0 mg subcut WK 12/11/23 05/14/24 History subcutaneous pen injector (Keyla) amlodipine 5 mg tablet (Norvasc) 5 mg PO QAM #30 tabs 12/20/23 05/14/24 Rx insulin lispro 100 unit/mL 1 sliding scale dose subcut 12/20/23 05/14/24 Rx subcutaneous pen (Oren Helms USEASDIRECTJustina #0 mL U-) metoprolol succinate 50 mg 50 mg PO BID #60 tabs 12/20/23 05/14/24 Rx tablet,extended release 24 hr sennosides 8.6 mg tablet (Senokot) 17.2 mg (2 x 8.6 mg) PO QAM #60 12/20/23 05/14/24 Rx tabs atorvastatin 80 mg tablet 80 mg PO 05/09/24 05/14/24 History calcitriol 0.5 mcg capsule 0.5 mcg PO QAM 05/09/24 05/14/24 History carbamide peroxide 6.5 % ear drops 5 - 10 drp otic (ear) BID 05/09/24 05/14/24 History (Ear Wax Removal Drops) furosemide 20 mg tablet 10 mg PO QA 05/09/24 05/14/24 History gabapentin 300 mg capsule 300 mg PO 05/09/24 05/14/24 History insulin degludec 100 unit/mL (3 0 unit subcut QA 05/09/24 05/14/24 History mL) subcutaneous pen (Tresiba FlexTouch U-100 insulin) levothyroxine 112 mcg capsule 112 mcg PO QA 05/09/24 05/14/24 History magnesium oxide 400 mg PO QAM 05/09/24 05/14/24 History potassium chloride 10 mEq 10 meq PO QAM 05/09/24 05/14/24 History tablet,extended release sertraline 50 mg tablet 75 mg PO QA 05/09/24 05/14/24 History terazosin 10 mg capsule 10 mg PO QA 05/09/24 05/14/24 History cholestyramine-aspartame 4 gram 1 ea PO BID 2 weeks #60 ea 05/10/24 05/14/24 Rx oral powder for susp in a packet (Prevalite) losartan 50 mg tablet 50 mg PO QA 05/14/24 05/14/24 History neomycin 1.75 mg-polymyxin 10,000 See Rx Instructions .Route .COMPLEX 05/14/24 05/14/24 History unit-gramicidin 0.025mg/mL eye drops polyethylene glycol 3350 17 gram 17 g PO QAM 05/14/24 05/14/24 History oral powder packet (ClearLax) Past Med/Surg History Problem List (Updated 05/14/24 @ 17:56 by Background Daemon) DVT (deep venous thrombosis) Swelling of right lower extremity (Acute) Elevated LFTs (Acute) Influenza (Acute) Generalized weakness (Acute) Abnormal LFTs (Acute) Jaundice (Acute) History of DVT (deep vein thrombosis) Acute metabolic encephalopathy Scalp abscess (Acute) Cellulitis of scalp (Acute) Right otitis media Finger pain, left Encounter for screening colonoscopy Toe injury Traumatic loss of toenail of right great toe Vitamin D deficiency Bilateral pulmonary embolism Lumbar back pain with radiculopathy affecting left lower extremity Albuminuria Hypertension Diabetes type 2, uncontrolled Pulmonary nodule Sleep apnea (Chronic) Secondary hyperparathyroidism (Chronic) Morbid obesity (Chronic) Lumbar spinal stenosis (Chronic) Hypothyroidism (Chronic) Dyslipidemia (Chronic) Dysesthesia (Chronic) Diabetic peripheral 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) Depression (Chronic) Chronic reflux esophagitis (Chronic) Cardiac pacemaker (Chronic) CHF (congestive heart failure) (Chronic) Arteriosclerotic cardiovascular disease (Chronic) Anemia (Chronic) Background diabetic retinopathy associated with type 2 diabetes mellitus Hypomagnesemia Chronic anemia (Acute) Medical History Chronic kidney disease, stage III (moderate) Acute respiratory failure JUANPABLO (acute kidney injury) Colon polyps Elevated transaminase level Hematuria Tinea pedis of both feet Vitamin D deficiency Surgical History History of incision and drainage (12/15/23) History of colonoscopy History of tonsillectomy History of mandibular surgery History of cholecystectomy History of coronary artery stent placement History of cardiac cath History of cataract surgery Family History Father Lung cancer Brother Lung disease Lung cancer Denies family history of Ovarian cancer Prostate cancer Myocardial infarction Breast cancer Colorectal cancer Social History Smoking Status: Never smoker Age Started Using Tobacco: 20; Age Quit Using Tobacco: 21; Second Hand Exposure: Yes; Hx Alcohol Use: No Hx Substance Use: No Preferred Language: Finnish Communication Ability: Effective Visual Impairment: No Limitations Hearing Ability: Use of Hearing Aid Community Relations Assistant Required: No Beliefs That Will Affect Care: None marital status: / Current Living Situation: Personal Care Facility current occupational status: retired 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 How many Children do You have: 2 Feels Safe at Home: Yes Safety Concerns: Feels Safe At This Time Childhood Exposure to Second-Hand Smoke: No Diet: regular Diet Comment: Regular Diet caffeine: No during the past year weight has: remained stable Dental Care, Regularly: No Physical Activity Frequency: Does not Exercise Seatbelt Use: sometimes Sunscreen Use: No Assistive Devices: Denture - Upper, Denture - Lower and Walker Physical Exam Constitutional: WD/WN, vitals as above Respiratory: normal respiratory effort, lungs clear to auscultation Cardiovascular: RRR, no murmur, no edema Musculoskeletal: moves all extremities Psychiatric: A+Ox3, euthymic affect Results & Data Results & Data Vital Signs (Past 12 Hours) Vital Signs Temp Pulse Resp BP Pulse Ox O2 Del Method 05/14/24 10:17 63 05/14/24 06:30 37.1 C 77 24 146/67 H 94 Room Air 05/14/24 06:24 70 Code Status & VTE Plan VTE Prophylaxis Plan VTE Prophylaxis will be ordered: Yes Supervising Physician Co-Signing Physician Notes I personally saw and examined the patient. I independently reviewed the labs, EKG, imaging, problem list, medication list, past medical history and family history. I verified all goodrich points and agree with Saumya Sosa PA-C with the following exceptions and/or additions: 79-year-old male presents to the ER with generalized weakness since Wednesday and upper respiratory symptoms. Influenza positive in the emergency room. Basically has a recent diagnosis of elevated LFTs with recent CT concerning for pancreatic cancer. Also noted to have right calf swelling. O/E HS RRR, no murmurs, Chest CTAB, RUQ mild pain on palpation (patient reports not new), jaundiced appearing, Right calf circumference > left leg A/P Influenza A - give lack of lung sounds or rhonchi I don't think hypertonic saline is necessary and will cancel this, continue Tamiflu, suspect generalized weakness due to this and will consult PT/OT Elevated LFTs - based on outpatient CT he has had since last admission concerning finding for pancreatic cancer and will consult GI for assistance in further workup. I do not see a CA 19-9 previous sent therefore will add to AM labs DVT - based on my exam I do think this is acute despite his Eliquis therefore will witch to Lovenox 1mg/kg BID PG Care Time/CCT Total # of Minutes Spent Total Time Spent with Patient: Total time spent is greater than 50% in coordination of care (as documented) at patient's floor/unit and/or counseling patient: Coding Level of Care Code 30335 INT INP/OBS CARE 3/75MIN Diagnoses Influenza J11.1 Generalized weakness R53.1 Elevated LFTs R79.89 DVT (deep venous thrombosis) I82.409 Hypokalemia E87.6 Diabetic peripheral neuropathy associated with type 2 diabetes mellitus E11.42
[2024-05-14 13:40] LABS: INR 1.5 (0.9-1.1); Prothrombin Time 15.6 Seconds (9.0-12.0)
[2024-05-14] MEDS: POTASSIUM CHLORIDE CRTAB 20 MEQ TABCR PO STA (13:43)
[2024-05-14] MEDS: LACTATED RINGER'S 1,000 ML IV SCH (15:50)
[2024-05-14] MEDS ORDERED: GLUCOSE 10 TAB/TUBE PO PRN (19:24)
[2024-05-14] MEDS ORDERED: GLUCOSE 40% GEL 15 GM TUBE PO PRN (19:24)
[2024-05-14] MEDS ORDERED: DEXTROSE 50% 50 ML SYRINGE IV PRN (19:24)
[2024-05-14] MEDS ORDERED: GLUCAGON FOR INJ 1 MG VIAL SQ PRN (19:24)
[2024-05-14] MEDS ORDERED: CARBOHYDRATES FOR HYPOGLYCEMIA PO PRN (19:24)
[2024-05-14] MEDS ORDERED: PHARMACY GLYCEMIC MGMT CONSULT PRN (20:00)
[2024-05-14] MEDS: SODIUM CHLOR 7% 4 ML NEB NEB SCH (20:19)
[2024-05-14] MEDS: INSULIN ASPART PER UNIT CHARGE SC SCH (20:53)
[2024-05-14] MEDS: ATORVASTATIN 40 MG TAB PO SCH (20:54)
[2024-05-14] MEDS: GABAPENTIN 300 MG CAP PO SCH (20:56)
[2024-05-14] MEDS: METOPROLOL SUCC 50MG EXT REL TAB PO SCH (20:56)
[2024-05-14] MEDS ORDERED: APIXABAN 5 MG TABLET PO SCH (21:00)
[2024-05-14] MEDS ORDERED: ENOXAPARIN 1 MG/KG SQ SCH (21:00)
[2024-05-14] MEDS: OSELTAMIVIR PHOSPHATE SUSP 30 MG/5 ML UDP PO SCH (21:07)
[2024-05-14] MEDS: ENOXAPARIN INJ 120 MG/0.8 ML SYR SQ SCH (21:59)
[2024-05-14] MEDS: CHOLESTYRAMINE LIGHT 4 GM PKT PO SCH (22:01)
[2024-05-15] MEDS: ACETAMINOPHEN 325 MG TAB PO PRN (00:31)
[2024-05-15] MEDS: LEVOTHYROXINE SODIUM 112 MCG TABLET PO SCH (06:03)
[2024-05-15 06:41] LABS: Hematocrit (blood only) 33.2 % (42.0-52.0); Hemoglobin 10.6 g/dl (14.0-18.0); Mean Corpuscular Hemoglobin 25.6 pg (25.0-34.0); Mean Corpuscular Hgb Conc 31.9 g/dL (32.0-36.0); Mean Corpuscular Volume 80.2 fL (80.0-100.0); Mean Platelet Volume 10.9 fL (9.4-12.4); Platelet Count 105 K/uL (130-400); RDW Coefficient of Variation 18.9 % (11.5-14.5); RDW Standard Deviation 54.3 fL (36.4-46.3); Red Blood Count 4.14 M/uL (4.70-6.10); White Blood Count 4.26 K/ul (4.8-10.8)
[2024-05-15 06:56] LABS: Albumin Globulin Ratio 0.8 (0.9-2); Albumin Level 2.8 gm/dl (3.4-5.0); BUN Creatinine Ratio 8.5 (10-20); Bilirubin,Total 4.9 mg/dl (0.2-1.0); Calcium 8.8 mg/dl (8.6-10.3); Creatinine Clr Calc Pharmacy 30.3 ml/min; Globulin 3.5 gm/dl (2.5-4.0); Magnesium 1.9 mg/dl (1.7-2.4); Potassium 3.3 mmol/L (3.5-5.1); Total Protein 6.3 gm/dl (6.0-8.3)
--- NOTE | 2024-05-15 08:04 | Hospitalist Progress Note ---
Date of Service May 15, 2024 Assessment & Plan (1) Influenza: Plan: 79 year old male with past medical history of DVT, DM II, depression, hypertension, esophagitis who presented to the ED on 05/14/24 with complaints of weakness in LE, cough, runny nose. Was admitted earlier this month for CT scan w/ elevated LFTs 2nd to transaminitis/jaundice w/ recs for outpt GI f/u. Has not felt well since dc +Flu testing on admission Continue tamiflu, supportive care. 98% on RA. Incentive spirometer, nebs as needed DVT Proph: eliquis switched to lovenox SQ BID given possible acute DVT despite eliquis, ?2nd hypercoag state w/ possible underlying pancreatic ca? (venous doppler w/ acute vs subacute DVT in RLL) See below for LFT/further testing for concerns pancreatic ca (2) Elevated LFTs: Plan: concerning for new pancreatic ca given recent CT and elevated LFTs . jaundice appearance on exam/no abdominal pain GI consult to assist with workup - plan for MRCP today to confirm suspicious for pancreatic ca. CA 19-9 pending from this morning LFTs trending down and will monitor. f/u prior lab testing for autoimmune as obtained last wejuanita If unresectable could consider metallic pancreatic stent. If not obvious on MRCP re unresectability will need EUS. Appreciate GI recs/assistance Continue cholestyramine for itching. Statin/mounjaro on hold Monitor LFTs Adilene (3) DVT (deep venous thrombosis): Plan: On admission, doppler showed acute vs subacute DVT in right lower extremity Patient w/ hx of DVT in right lower extremity per imaging in 2023 & 2021 and has RLE edema>RLE on exam w/ increased swelling and given concerns for maliginancy eliquis switched to lovenox likely need to continue lovenox at dc, can discuss w/ anticoag clinic pending MRCP/further testing above (4) Hypokalemia: Plan: low, PO replacement ordered. Mag level acceptable and will monitor (5) Diabetic peripheral neuropathy associated with type 2 diabetes mellitus: Plan: #Type 2 Diabetes On Insulin, Chana Vickro at baseline -- HELD. A1c in May 7.5 Sliding scale has been ordered and will monitor/adjust as needed (6) Generalized weakness: Plan: suspect combination of flu but also more likely 2nd to new pancreatic mass finding/concerns for malignancy and +doppler. Dhara switched to lovenox as above Head CT - no acute intracranial abnormality/calvarial fx. large chronic right frontal lobe infarct. chronic appearing basal ganglia lacunar infarcts. L > R mastoid & middle ear effusions CXR - no gross interval changes since previous study Lumbar spine CT - no acute fx/subluxation. chronic endplate irregularity of lower lumbar spine. central canal and neural foraminal narrowing of lower lumbar spine is similar vs mildly worsened from myelogram in 10/2022. Subacute to chronic appearing superior endplate Schmorl's node at L4 has progressed from 10/2022. PT/OT consults to be undertaken while inpatient Trop 54--> 53, suspect demand ischemia from infection/above. No CP/SOB. Paced on monitor, consider pacemaker interrogation if no abn Plan Chronic medical problems CKD- Baseline Cr 2.1-2.3, was given 1L IV on admission and BUN/Cr worse 21/2.46. Was continued on lasix PO daily, will place on hold for now/encourage PO. Renal dose meds/avoid nephrotoxins. BMP in AM Neuropathy: gabapentin continued, monitor to adjust for renal function Hypothyroidism: TSH wnl earlier this month and continues on synthroid current dosing HTN: metoprolol, lasix, losartan. Will place lasix on hold for am, monitor to hold losartan if renal function worsened GERD: PPI continued, does have hx esophagitis. monitor to increase to BID if needed Mental Health: Sertraline DVT proph: dhara swiched to lovenox as outlined for RLE DVT on exam. No hypoxia/hypotension or pleuritic pain but monitor for CTA if needed. Consider touching base w/ coag clinic in AM for discussion Dispo: continued inpatient stay, GI consulted/plan for MRCP and CA 19-9 pending. Possible need for EUS pending MRCP results. PT/OT consults pending. Lovenox SQ Admission and Anticipated Discharge Date Admission Date: May 14, 2024 Supervising Physician Co-Signing Physician Notes The patient was not seen by me. The chart was reviewed. Case discussed with ETHAN Martell. Agree with assessment and plan Subjective Eval this morning, resting in bed. Jaundiced appearance. Was seen by someone from GI this moring but not sure on plan but said someone was to call him last week once reviewed CT and never did. Discussed CT concerns for pancreatic CA, jesse given no epigastric pain and elevated LFTs/jaundice appearance. No family/personal hx pancreatic ca. Plan for MRCP discussed, possible ERCP/EUS pending results. Discussed RLE edema and appears acute vs chronic but switched to lovenox from his eliquis given concerns and w/ malignancy may not be effective and can touch base w/ coag clinic. ~7 yrs ago, brother in [facility]. Two children, live in [place] and [place]. Some chest congestion/cough, mild R sided wheeze. Nebs available, 98% on RA. Physical Exam 2 Physical Exam: General: 79yo male sitting up in bed, +jaundiced appearance, NAD HEENT: head atraumatic, normocephalic, mmm, trachea midline Resp: even/unlabored, slightly diminished int he bases, R sided expiratory wheezing, no rales, on room air CV: regular/paced on monitor, RLE edema>LLE with increased circumference, nonpitting, slight decreased pulse but appreciable GI: +BS, slight distension, no overt tenderness/guarding ; no preciado MSK/Neuro: nonfocal, not confused, answering questions appropriately Psych: AOx3, cooperative with exam Results & Data Results & Data Vital Signs (Past 12 Hours) Vital Signs Temp Pulse Pulse Resp BP Pulse Ox O2 Del Method 05/15/24 07:37 36.4 C L 63 16 157/84 H 98 Room Air 05/15/24 03:49 36.4 C L 67 18 137/73 94 Room Air 05/15/24 00:11 37.5 C 72 20 111/62 92 Room Air 05/14/24 22:05 77 05/14/24 22:05 Room Air 05/14/24 20:20 63 18 95 Room Air Laboratory Results 05/15/24 06:15 05/15/24 06:15 TB 5.9--> 4.9 AST 207--> 173 ALT 89--> 73 ALP 1105--> 880 CA 19-9 pending Diagnostic Findings Chest X-Ray 05/14/24 06:27 EXAM: XR chest 1V portable CLINICAL HISTORY: Weakness. TECHNIQUE: X-ray image of the chest is obtained in AP projection. COMPARISON: Previous CR dated 12/10/2023. FINDINGS: Pulmonary Parenchyma: Dual leads cardiac exercise specialist is seen. Prominent both usama with perihilar and basal increased broncho vascular markings suggesting lung congestion. A small left apical calcified nodule is seen. No evidence of consolidation, collapse, or focal opacities. No evidence of pleural effusion or pleural thickening. Heart and Mediastinum: Heart size can not be assessed due to the AP projection. No mediastinal widening or masses. No hilar or mediastinal lymphadenopathy. Bony Thorax: Bony thorax appears intact without fractures or deformities. Soft Tissues: Soft tissues overlying the chest wall are unremarkable. IMPRESSION: Prominent both usama with perihilar and basal increased broncho vascular markings suggesting lung congestion. 1. Small left apical calcified nodule. 2. No gross interval changes in comparison with the previous study. Electronically signed by Leni Rivera 05-14-2024 08:[address] 05/14/24 07:35 CT head/brain wo con CLINICAL HISTORY: 79 years-old Male with weakness. Acute weakness TECHNIQUE: Multiple axial CT images of the head were obtained without contrast. A dose lowering technique was utilized adhering to the principles of ALARA. COMPARISON: 12/10/2023, 05/28/2021 FINDINGS: No acute intracranial hemorrhage, midline shift, intracranial mass, hydrocephalus, territorial ischemia or abnormal extra-axial collection. There is a large area of encephalomalacia within the right frontal lobe. Age-related involutional changes. White matter hypodensities suggest chronic microvascular ischemic disease. Cerebral vascular calcifications. Chronic appearing bilateral lacunar infarcts. The calvarium is intact. Prior bilateral lens repair. Paranasal sinuses are normally clear. Small right and moderate left mastoid and middle ear effusions. IMPRESSION: 1. No acute intracranial abnormality or calvarial fracture. 2. Large chronic right frontal lobe infarct. 3. Chronic appearing basal ganglia lacunar infarcts. 4. Left greater than right mastoid and middle ear effusions. ACT 112: Negative or not required by law. The above report was generated using voice recognition software. It may contain grammatical, syntax or spelling errors. Electronically signed by: Rakan Francis M.D. 05/14/2024 8:[address] 05/14/24 07:35 CT lumbar spine wo con HISTORY: 79 years-old Male leg weakness acute low back pain with lower extremity weakness COMPARISON: CT abdomen and pelvis 05/12/2024, CT lumbar spine 11/02/2022 TECHNIQUE: Multiple axial CT images of the lumbar spine were obtained without IV contrast. A dose lowering technique was used consistent with the principals of ARBEN. FINDINGS: No acute fracture or subluxation. Chronic endplate irregularity again noted at L4-L5 and L5-S1. The L5-S1 level is partially excluded from the [id number]. Severe intervertebral disc space narrowing with degenerative partial bony fusion at L5-S1 redemonstrated. Moderate multilevel spondylitic spurring and facet arthrosis with mild multilevel intervertebral disc space narrowing. Posterior disc osteophyte complex redemonstrated at L3-L4 causing moderate to severe central canal stenosis. Posterior annular disc bulging at L4-L5 causes severe central canal stenosis, unchanged. Multilevel neural foraminal narrowing is again noted which is severe bilaterally at L4-L5, and moderate bilaterally at L5-S1. Superior endplate Schmorl's node at L4 has progressed from the 2022 comparison. Atherosclerosis of the aorta. The intra-abdominal structures are better seen on the recent CT abdomen and pelvis study. IMPRESSION: 1. No acute fracture or subluxation. 2. Chronic endplate irregularity of the lower lumbar spine. 3. Central canal and neural foraminal narrowing of the lower lumbar spine is similar to mildly worsened compared to the myelogram study from 11/02/2022. 4. Subacute to chronic appearing superior endplate Schmorl's node at L4 has progressed from 11/02/2022. ACT 112: Negative or not required by law. The above report was generated using voice recognition software. It may contain grammatical, syntax or spelling errors. Electronically signed by: Rakan Francis M.D. 05/14/2024 8:56 AM Venous Doppler Study 05/14/24 09:11 US venous doppler LE RT HISTORY: 79 years-old Male right leg swelling acute pain and swelling of the right leg COMPARISON: None TECHNIQUE: Multiple real-time sonographic images of the right lower extremity deep venous structures were obtained assessing grayscale appearance, color and spectral flow. FINDINGS: Partially occlusive thrombus extends from the superficial femoral vein into the popliteal vein. Calf veins are not well visualized. Spectral waveforms noted within the visualized patent veins of the right lower leg suggestive of elevated right heart pressure. IMPRESSION: Right lower extremity DVT, likely acute or subacute. ACT 112: Negative or not required by law. The above report was generated using voice recognition software. It may contain grammatical, syntax or spelling errors. Electronically signed by: Rakan Francis M.D. 05/14/2024 12:15 PM PG Care Time/CCT Total # of Minutes Spent Total Time Spent with Patient: Total time spent is greater than 50% in coordination of care (as documented) at patient's floor/unit and/or counseling patient: Coding Level of Care Code 34870 SUB INP/OBS CARE 3/50MIN Diagnoses Influenza J11.1 Elevated LFTs R79.89 DVT (deep venous thrombosis) I82.409 Hypokalemia E87.6 Diabetic peripheral neuropathy associated with type 2 diabetes mellitus E11.42 Generalized weakness R53.1
[2024-05-15] MEDS ORDERED: LANTUS PER UNIT CHARGE SC ONE ×2 (08:30)
--- NOTE | 2024-05-15 08:39 | Communication Note ---
Date of Service: May 15, 2024 Findings consistent with pancreatic cancer, MRCP to confirm, CA19-9 pending. If unresectable could consider metallic pancreatic stent. If not obvious on MRCP re unresectablitity will need EUS
[2024-05-15] MEDS ORDERED: NON-FORMULARY MEDICATION (Insulin Degludec [Tresiba Flextouch U-100] 100 unit/mL (3 mL) in SQ SCH (09:00)
[2024-05-15] MEDS: LANTUS PER UNIT CHARGE SC ONE (09:51)
[2024-05-15] MEDS: POTASSIUM CHLORIDE 10 MEQ TABCR PO SCH (09:52)
[2024-05-15] MEDS: SENNA 8.6 MG TAB PO SCH (09:52)
[2024-05-15] MEDS: amLODIPine BESYLATE 5 MG TAB PO SCH (09:53)
[2024-05-15] MEDS: ASPIRIN 81 MG ECTAB PO SCH (09:54)
[2024-05-15] MEDS: MAGNESIUM OXIDE 400 MG TAB PO SCH (09:55)
[2024-05-15] MEDS: SERTRALINE HCL 50 MG TABLET PO SCH (09:55)
[2024-05-15] MEDS: PANTOprazole 40 MG TAB PO SCH (09:55)
[2024-05-15] MEDS: FUROSEMIDE 20 MG TAB PO SCH (09:56)
[2024-05-15] MEDS: CALCITRIOL 0.25 MCG CAPSULE PO SCH (09:56)
--- NOTE | 2024-05-15 11:53 | Pharmacy Report ---
Pharmacy Glycemic Short Note 2 - Date of Service May 15, 2024 - Glycemic Short BSG Results (Last 24 hours): 05/14/24 05/14/24 05/15/24 17:56 20:33 06:15 Glucose 165 H POC Glucose 148 H 173 H 05/15/24 08:04 Glucose POC Glucose 171 H OUTPATIENT ANTIDIABETIC REGIMEN: * Tresiba 40mg SQ Q AM * Ademelog sliding scale * Jardiance 25mg po daily HbA1c 7.4% on 05-10-24 ASSESSMENT: * 79 year old male admitted 05/14 for weakness/influenza A infection. Pharmacy was consulted for glycemic management while he is admitted. * BSGs were 148 and 173mg/dL last evening, so Novolog was initiated using weight based dosing (using adjusted bw) with a stress of 2. He only required 1 unit of insulin last evening. * Fasting BSG was 171mg/dL this morning so 10 units of Lantus x 1 was given (Did not want to start with the full dose that he was receiving at home as during admission last week pt had lower BSGs, with a low of 82mg/dL without receiving any basal insulin.) Bolus insulin with the parameters ordered last evening was continued. Over night BSG checks were added to ensure he is within goal range since he was not given his full dose of basal insulin today. PLAN FOR INPATIENT GLYCEMIC CONTROL: * Hold outpatient diabetes medications * Basal insulin * Lantus 10 units SQ x 1 * Bolus insulin * NovoLog per scale ACHS or Q6hrs while NPO * Goal Range: Low 120 mg/dL - High 150 mg/dL * Correction Factor: 25 mg/dL/unit * Nutritional / Prandial insulin per carb ratio of 1 unit per 9 grams CHO consumed
[2024-05-15] MEDS: POTASSIUM CHLORIDE CRTAB 20 MEQ TABCR PO STA (13:12)
[2024-05-15] MEDS: NEOMYCIN/POLYMYXIN/GRAMICIDIN 10 ML BTL OT SCH (15:58)
[2024-05-15] MEDS: ALBUT/IPRATROP 3MG/0.5MG NEB 3 ML VIAL NEB PRN (20:09)
[2024-05-16] MEDS: INSULIN ASPART PER UNIT CHARGE SC SCH (00:11)
[2024-05-16 07:26] LABS: Hematocrit (blood only) 34.7 % (42.0-52.0); Hemoglobin 11.2 g/dl (14.0-18.0); Mean Corpuscular Hemoglobin 25.8 pg (25.0-34.0); Mean Corpuscular Hgb Conc 32.3 g/dL (32.0-36.0); Mean Platelet Volume 11.7 fL (9.4-12.4); Platelet Count 108 K/uL (130-400); RDW Coefficient of Variation 18.9 % (11.5-14.5); RDW Standard Deviation 54.4 fL (36.4-46.3); Red Blood Count 4.34 M/uL (4.70-6.10); White Blood Count 4.34 K/ul (4.8-10.8)
[2024-05-16 07:42] LABS: Albumin Level 2.8 gm/dl (3.4-5.0); BUN Creatinine Ratio 10.6 (10-20); Bilirubin Direct 2.6 mg/dl (0-0.2); Bilirubin,Total 4.1 mg/dl (0.2-1.0); Calcium 8.5 mg/dl (8.6-10.3); Creatinine Clr Calc Pharmacy 31.4 ml/min; Magnesium 1.9 mg/dl (1.7-2.4); Potassium 3.6 mmol/L (3.5-5.1); Total Protein 6.3 gm/dl (6.0-8.3)
--- NOTE | 2024-05-16 09:58 | Pharmacy Report ---
Pharmacy Glycemic Short Note 2 - Date of Service May 16, 2024 - Glycemic Short BSG Results (Last 24 hours): 05/15/24 05/15/24 05/15/24 12:07 17:05 20:21 Glucose POC Glucose 194 H 120 H 152 H 05/15/24 05/16/24 05/16/24 23:58 03:50 07:01 Glucose 145 H POC Glucose 143 H 126 H 05/16/24 08:04 Glucose POC Glucose 135 H OUTPATIENT ANTIDIABETIC REGIMEN: * Tresiba 40mg SQ Q AM * Ademelog sliding scale * Jardiance 25mg po daily HbA1c 7.4% on 05-10-24 ASSESSMENT: 05/16: * Gerry received 28 units of insulin yesterday, 10 of which were basal. BSGs were: [phone] mg/dL. * Fasting BSG this Am was 135 mg/dL. Patient is NPO for a MRCP today around noon. Will hold off on any further basal insulin until diet is resumed and being tolerated. Suspect patient will require 10 more units at some point this evening. * No change to Novolog at this time. 05/15: * 79 year old male admitted 05/14 for weakness/influenza A infection. Pharmacy was consulted for glycemic management while he is admitted. * BSGs were 148 and 173mg/dL last evening, so Novolog was initiated using weight based dosing (using adjusted bw) with a stress of 2. He only required 1 unit of insulin last evening. * Fasting BSG was 171mg/dL this morning so 10 units of Lantus x 1 was given (Did not want to start with the full dose that he was receiving at home as during admission last week pt had lower BSGs, with a low of 82mg/dL without receiving any basal insulin.) Bolus insulin with the parameters ordered last evening was continued. Over night BSG checks were added to ensure he is within goal range since he was not given his full dose of basal insulin today. PLAN FOR INPATIENT GLYCEMIC CONTROL: * Hold outpatient diabetes medications * Basal insulin * Holding basal insulin this AM for MRCP * Possibly order 10 units SC x 1 if patient eats lunch/dinner * Bolus insulin * NovoLog per scale ACHS or Q6hrs while NPO * Goal Range: Low 110 mg/dL - High 150 mg/dL * Correction Factor: 25 mg/dL/unit * Nutritional / Prandial insulin per carb ratio of 1 unit per 9 grams CHO consumed
[2024-05-16] MEDS: hydrALAZINE HCL 20 MG/ML VIAL IV PRN (12:26)
--- NOTE | 2024-05-16 14:44 | Communication Note ---
Date of Service: May 16, 2024 Received a notification that patient cannot have MRCP due to an incompatible pacemaker. From a GI standpoint, he will need an outpatient EUS for further assessment and this referral was already put in process on 05/12/24. A referral was placed to [facility] on 05/12/24. He will need to coordinate scheduling with their office directly.
--- NOTE | 2024-05-16 16:31 | Gastroenterology Progress Note ---
Date of Service May 16, 2024 Assessment & Plan (1) Biliary obstruction: Plan: Likely due to pancreatic cancer. CA 19-9 pending. MRCP could not be performed because of pacemaker. Outpatient endoscopic ultrasound. I did review with his daughter Carolyne by phone that we believe this to be pancreatic cancer. Likely to be palliative therapy such as a biliary stent. Resecting pancreatic cancer in this 79-year-old does not seem to be a likely outcome. At discharge will need the number of [facility] to arrange outpatient EUS. They did attempt to contact them but he was here admitted to the hospital. Admission and Anticipated Discharge Date Admission Date: May 14, 2024 Subjective Biliary obstruction Suspected pancreatic cancer Physical Exam Physical Exam: Patient lying in bed no acute distress. Abdomen benign. MRCP could not be performed because of pacemaker. Results & Data Results & Data Vital Signs (Past 12 Hours) Vital Signs Temp Pulse Pulse Resp BP Pulse Ox O2 Del Method 05/16/24 15:50 36.3 C L 60 20 173/84 H 98 Room Air 05/16/24 15:32 61 05/16/24 14:43 60 18 161/82 H 05/16/24 11:13 36.6 C 63 18 192/79 H 96 Room Air 05/16/24 08:00 Room Air 05/16/24 08:00 63 05/16/24 07:44 36.6 C 65 22 165/83 H 94 Room Air Laboratory Results Biliary obstructive enzymes are actually improving. Still markedly abnormal. 2 better define the questionable mass in the head of the pancreas and do staging patient will need an alternative test i.e. endoscopic ultrasound. PG Care Time/CCT Total # of Minutes Spent Total Time Spent with Patient: Total time spent is greater than 50% in coordination of care (as documented) at patient's floor/unit and/or counseling patient: Coding Level of Care Code 05561 SUB INP/OBS CARE 04/29MIN Diagnoses Biliary obstruction K83.1
[2024-05-16] MEDS: LANTUS PER UNIT CHARGE SC ONE (17:47)
--- NOTE | 2024-05-16 18:48 | Hospitalist Progress Note ---
Date of Service May 16, 2024 Assessment & Plan (1) Influenza: Plan: 79 year old male with past medical history of DVT, DM II, depression, hypertension, esophagitis who presented to the ED on 05/14/24 with complaints of weakness in LE, cough, runny nose. Was admitted earlier this month for CT scan with elevated LFTs 2nd to transaminitis/jaundice with recs for outpatient GI f/u. Has not felt well since recent discharge. +Flu testing on admission Continue Tamiflu through 05/19/24, supportive care with incentive spirometer, nebs as needed Remains stable on room air (2) Elevated LFTs: Plan: Concern for new pancreatic cancer given recent CT, elevated LFTs, jaundice appearance on exam with no abdominal pain GI consult to assist with workup Unfortunately unable to do MRCP due to pacemaker incompatibility Recommend EUS with [facility] GI outpatient If unresectable could consider metallic pancreatic stent CA 19-9 pending, sent out. F/u prior lab testing for autoimmune as obtained l ast week. 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 and has RLE edema>RLE on exam w/ increased swelling and given concerns for malignancy/hypercoagulable state, Eliquis switched to Lovenox Likely need to continue Lovenox at dc, can discuss w/ anticoag clinic (4) Hypokalemia: Plan: Hypokalemia repleted with oral potassium and augmented appropriately Mag level acceptable (5) Diabetic peripheral neuropathy associated with type 2 diabetes mellitus: Plan: On Insulin, Huber Vickunjaro at baseline -- HELD A1c in May 7.5 Sliding scale has been ordered and will monitor/adjust as needed (6) Generalized weakness: Plan: Suspect combination of flu but also more likely 2nd to new pancreatic mass finding/concerns for malignancy and +Doppler. Eliquis switched to Lovenox as above Head CT - no acute intracranial abnormality/calvarial fx. large chronic right frontal lobe infarct. chronic appearing basal ganglia lacunar infarcts. L > R mastoid & middle ear effusions CXR - no gross interval changes since previous study Lumbar spine CT - no acute fx/subluxation. chronic endplate irregularity of lower lumbar spine. central canal and neural foraminal narrowing of lower lumbar spine is similar vs mildly worsened from myelogram in 10/2022. Subacute to chronic appearing superior endplate Schmorl's node at L4 has progressed from 10/2022. PT/OT recommend patient return to [facility] Trop 54--> 53, suspect demand ischemia from infection/above. No CP/SOB. Paced on monitor Plan Chronic medical problems CKD- Baseline Cr 2.1-2.3, was given 1L IV on admission and BUN/Cr worse /2.46. Was continued on lasix PO daily, will place on hold for now/encourage PO. Renal dose meds/avoid nephrotoxins. BMP in AM Neuropathy: gabapentin continued, monitor to adjust for renal function Hypothyroidism: TSH wnl earlier this month and continues on synthroid current dosing HTN: metoprolol, lasix, losartan. Will place lasix on hold for am, monitor to hold losartan if renal function worsened GERD: PPI continued, does have hx esophagitis. monitor to increase to BID if needed Mental Health: Sertraline continued DVT proph: Eliquis switched to Lovenox as outlined for RLE DVT on exam. Consider touching base w/ coag clinic in AM for discussion Dispo: Anticipate return to [facility] 05/17. Will need EUS outpatient with [facility]. Defer to outpatient provider to f/u on CA19-9 and autoimmune testing results. May need anticoag clinic referral if needing Lovenox outpatient Updated daughters via phone call Ordered PRN hydralazine with parameters Admission and Anticipated Discharge Date Admission Date: May 14, 2024 Supervising Physician Co-Signing Physician Notes Attending Attestation - Chart reviewed, care plan d/w ETHAN Suarez. I agree w/ the goodrich components of her documentation. Complex case with flu, abnl LFTs, ?pancreatic head mass, acute/chronic RLE DVT, etc. Agree w/ lovenox for now. Mark Vazquez MD Subjective Patient seen and evaluated at bedside. He was scheduled for MRCP today but unfortunately could not be done secondary to pacemaker incompatibility. Clinically he reports feeling tired but denies any acute complaints. Denies abdominal pain, nausea, vomiting, diarrhea, LE pain, body aches, chills. He does remain jaundiced. Discussed the next step is an outpatient EUS with [facility] GI team. Informed patient I would call his daughters with update. Physical Exam Physical Exam: General: No acute distress, nondiaphoretic, jaundiced appearance. Cardiac: Regular rate/paced on tele without murmurs gallops or rubs. RLE>LLE nonpitting edema. Distal pulses present bilaterally. Pulm: Clear to auscultation bilaterally without wheezes, rales or rhonchi. No respiratory distress. 98% on room air. Abdominal: Soft, nontender, distended secondary to body habitus. Bowel sounds present. No organomegaly, guarding, or rebound tenderness. Neuro: A&O x3. No focal neurological deficits. Results & Data Results & Data Vital Signs (Past 12 Hours) Vital Signs Temp Pulse Pulse Resp BP Pulse Ox O2 Del Method 05/16/24 15:50 97.3 F L 60 20 173/84 H 98 Room Air 05/16/24 15:32 61 05/16/24 14:43 60 18 161/82 H 05/16/24 11:13 97.9 F 63 18 192/79 H 96 Room Air 05/16/24 08:00 Room Air 05/16/24 08:00 63 05/16/24 07:44 97.9 F 65 22 165/83 H 94 Room Air Laboratory Results Reviewed CBC with differential Reviewed CMP PG Care Time/CCT Total # of Minutes Spent Total Time Spent with Patient: Total time spent is greater than 50% in coordination of care (as documented) at patient's floor/unit and/or counseling patient: Coding Level of Care Code 82302 SUB INP/OBS CARE 3/50MIN Diagnoses Influenza J11.1 Elevated LFTs R79.89 DVT (deep venous thrombosis) I82.409 Hypokalemia E87.6 Diabetic peripheral neuropathy associated with type 2 diabetes mellitus E11.42 Generalized weakness R53.1
--- NOTE | 2024-05-16 21:39 | Electrocardiogram Report ---
Test Reason : Blood Pressure : */* mmHG Vent. Rate : 73 BPM Atrial Rate : 73 BPM P-R Int : 182 ms QRS Dur : 188 ms QT Int : 474 ms P-R-T Axes : 69 -80 88 degrees QTcB Int : 522 ms Atrial-sensed ventricular-paced rhythm Abnormal ECG When compared with ECG of 09-May-2024 09:14, Vent. rate has increased by 6 bpm Confirmed by Froilan Mtz ([id number]) on 05/16/2024 9:39:01 PM Referred By: [facility] Confirmed By: Froilan Mtz
[2024-05-17 07:18] LABS: Hematocrit (blood only) 34.1 % (42.0-52.0); Hemoglobin 10.9 g/dl (14.0-18.0); Mean Corpuscular Hemoglobin 25.6 pg (25.0-34.0); Mean Platelet Volume 11.7 fL (9.4-12.4); Platelet Count 113 K/uL (130-400); RDW Coefficient of Variation 18.8 % (11.5-14.5); RDW Standard Deviation 54.2 fL (36.4-46.3); Red Blood Count 4.26 M/uL (4.70-6.10); White Blood Count 4.99 K/ul (4.8-10.8)
[2024-05-17 07:33] LABS: Albumin Level 2.9 gm/dl (3.4-5.0); BUN Creatinine Ratio 12.6 (10-20); Bilirubin,Total 3.5 mg/dl (0.2-1.0); Calcium 8.8 mg/dl (8.6-10.3); Creatinine Clr Calc Pharmacy 31.9 ml/min; Potassium 3.6 mmol/L (3.5-5.1); Total Protein 6.4 gm/dl (6.0-8.3)
[2024-05-17] MEDS: LANTUS PER UNIT CHARGE SC SCH (09:54)
--- NOTE | 2024-05-17 17:17 | Hospitalist Progress Note ---
Date of Service May 17, 2024 Assessment & Plan (1) Influenza: Plan: 79 year old male with past medical history of DVT, DM II, depression, hypertension, esophagitis who presented to the ED on 05/14/24 with complaints of weakness in LE, cough, runny nose. Was admitted earlier this month for CT scan with elevated LFTs 2nd to transaminitis/jaundice with recs for outpatient GI f/u. Has not felt well since recent discharge. +Flu testing on admission Continue Tamiflu through 05/19/24, supportive care with incentive spirometer, nebs as needed Remains stable on room air (2) Elevated LFTs: Plan: Concern for new pancreatic cancer given recent CT, elevated LFTs, jaundice appearance on exam with no abdominal pain GI consult to assist with workup Unfortunately unable to do MRCP due to pacemaker incompatibility Recommend EUS with [facility] GI outpatient If unresectable could consider metallic pancreatic stent CA 19-9 elevated at 47, consistent with our concern for pancreatic cancer. F/u prior lab testing for autoimmune as obtained last week. 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 This will determine if new clots have formed versus chronic DVTs to determine anticoagulation on discharge. If new clots performed, though would be considered Eliquis failure and patient would need to switch to Lovenox and likely follow-up with anticoagulation clinic if that were to be the case (4) Hypokalemia: Plan: Hypokalemia repleted with oral potassium and augmented appropriately Mag level acceptable (5) Diabetic peripheral neuropathy associated with type 2 diabetes mellitus: Plan: On Insulin, Kimmy Vick at baseline -- HELD A1c in May 7.5 Sliding scale has been ordered and will monitor/adjust as needed (6) Generalized weakness: Plan: Suspect combination of flu but also more likely 2nd to new pancreatic mass finding/concerns for malignancy and +Doppler. Lona switched to Lovenox as above Head CT - no acute intracranial abnormality/calvarial fx. large chronic right frontal lobe infarct. chronic appearing basal ganglia lacunar infarcts. L > R mastoid & middle ear effusions CXR - no gross interval changes since previous study Lumbar spine CT - no acute fx/subluxation. chronic endplate irregularity of lower lumbar spine. central canal and neural foraminal narrowing of lower lumbar spine is similar vs mildly worsened from myelogram in 10/2022. Subacute to chronic appearing superior endplate Schmorl's node at L4 has progressed from 10/2022. PT/OT recommend patient return to [facility] Trop 54--> 53, suspect demand ischemia from infection/above. No CP/SOB. Paced on monitor Plan Chronic medical problems CKD- Baseline Cr 2.1-2.3, was given 1L IV on admission and BUN/Cr worse 21/2.46. Was continued on lasix PO daily, will place on hold for now/encourage PO. Renal dose meds/avoid nephrotoxins. BMP in AM Neuropathy: gabapentin continued, monitor to adjust for renal function Hypothyroidism: TSH wnl earlier this month and continues on synthroid current dosing HTN: metoprolol, lasix, losartan. Will place lasix on hold for am, monitor to hold losartan if renal function worsened GERD: PPI continued, does have hx esophagitis. monitor to increase to BID if needed Mental Health: Sertraline continued DVT proph: Lona switched to Lovenox as outlined for RLE DVT on exam. Consider touching base w/ coag clinic in AM for discussion Dispo: Waiting to discuss imaging comparisons with radiology. Anticipate return to [facility] 05/18. Will need EUS outpatient with [facility]. Defer to outpatient provider to f/u on autoimmune testing results. May need anticoag clinic referral if needing Lovenox outpatient Discussed case with radiology Admission and Anticipated Discharge Date Admission Date: May 14, 2024 Supervising Physician Co-Signing Physician Notes Attending Attestation - Chart reviewed, care plan d/w ETHAN Suarez. I agree w/ the goodrich components of her documentation. Await outside doppler studies of RLE to determine if clots are old vs new (will compare 2023 doppler of RLE with this admission's doppler). LFTs noted to be slowly improving. Supportive care & Tamiflu for influenza infection. Mark Vazquez MD Subjective Patient seen and evaluated at bedside. Initially attempted to round on patient in morning and early afternoon, however he was sleeping soundly both times and allowed to rest. Evaluated patient in afternoon, where his only complaint was feeling tired and wanting to return to his nap. Discussed that I have asked for the radiology department [facility] so we can compare if these clots in his RLE are acute or chronic to determine anticoagulation on discharge. He is understanding. No additional complaints or concerns at this time. Physical Exam Physical Exam: General: No acute distress, nondiaphoretic, jaundiced appearance. Sleepy today. Cardiac: Regular rate in the 60s, paced on telemetry. Good perfusion. Pulm: Normal respiratory effort. 97% on room air. Neuro: A&O x3. No focal neurological deficits. Results & Data Results & Data Vital Signs (Past 12 Hours) Vital Signs Temp Pulse Pulse Resp BP Pulse Ox O2 Del Method 05/17/24 16:07 97.9 F 60 20 120/81 97 Room Air 05/17/24 15:12 66 05/17/24 11:06 98.2 F 61 16 125/66 98 Room Air 05/17/24 08:07 63 05/17/24 07:29 98.8 F 64 18 177/76 H 96 Room Air Laboratory Results Reviewed CBC Reviewed BMP Reviewed LFTs PG Care Time/CCT Total # of Minutes Spent Total Time Spent with Patient: Total time spent is greater than 50% in coordination of care (as documented) at patient's floor/unit and/or counseling patient: Coding Level of Care Code 16764 SUB INP/OBS CARE 2/35MIN Diagnoses Influenza J11.1 Elevated LFTs R79.89 DVT (deep venous thrombosis) I82.409 Hypokalemia E87.6 Diabetic peripheral neuropathy associated with type 2 diabetes mellitus E11.42 Generalized weakness R53.1
[2024-05-18 07:56] LABS: Albumin Globulin Ratio 0.8 (0.9-2); Albumin Level 2.9 gm/dl (3.4-5.0); BUN Creatinine Ratio 13.6 (10-20); Bilirubin,Total 3.2 mg/dl (0.2-1.0); Calcium 8.7 mg/dl (8.6-10.3); Creatinine Clr Calc Pharmacy 30.3 ml/min; Globulin 3.5 gm/dl (2.5-4.0); Potassium 3.6 mmol/L (3.5-5.1); Total Protein 6.4 gm/dl (6.0-8.3)
--- NOTE | 2024-05-18 16:49 | Hospitalist Progress Note ---
Date of Service May 18, 2024 Assessment & Plan (1) Influenza: Plan: 79 year old male with past medical history of DVT, DM II, depression, hypertension, esophagitis who presented to the ED on 05/14/24 with complaints of weakness in LE, cough, runny nose. Was admitted earlier this month for CT scan with elevated LFTs 2nd to transaminitis/jaundice with recs for outpatient GI f/u. Has not felt well since recent discharge. +Flu testing on admission Continue Tamiflu through 05/19/24, supportive care with incentive spirometer, nebs as needed Remains stable on room air (2) Elevated LFTs: Plan: Concern for new pancreatic cancer given recent CT, elevated LFTs, jaundice appearance on exam with no abdominal pain GI consult to assist with workup Unfortunately unable to do MRCP due to pacemaker incompatibility Recommend EUS with [facility] GI outpatient If unresectable could consider metallic pancreatic stent CA 19-9 elevated at 47, consistent with our concern for pancreatic cancer. F/u prior lab testing for autoimmune as obtained last week. 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 This will determine if new clots have formed versus chronic DVTs to determine anticoagulation on discharge. If new clots formed, it would be considered Eliquis failure and patient would need to switch to Lovenox and likely follow-up with anticoagulation clinic. CM did confirm with [facility] that they can do Lovenox injections there. Still waiting to hear from radiology regarding the DVTs 05/18 (4) Diabetic peripheral neuropathy associated with type 2 diabetes mellitus: Plan: On Insulin, Kimmy Vick at baseline -- HELD A1c in May 7.5 Sliding scale has been ordered and will monitor/adjust as needed (5) Generalized weakness: Plan: Suspect combination of flu but also more likely 2nd to new pancreatic mass finding/concerns for malignancy and +Doppler. Lona switched to Lovenox as above Head CT - no acute intracranial abnormality/calvarial fx. large chronic right frontal lobe infarct. chronic appearing basal ganglia lacunar infarcts. L > R mastoid & middle ear effusions CXR - no gross interval changes since previous study Lumbar spine CT - no acute fx/subluxation. chronic endplate irregularity of lower lumbar spine. central canal and neural foraminal narrowing of lower lumbar spine is similar vs mildly worsened from myelogram in 10/2022. Subacute to chronic appearing superior endplate Schmorl's node at L4 has progressed from 10/2022. PT/OT recommend patient return to [facility] Trop 54--> 53, suspect demand ischemia from infection/above. No CP/SOB. Paced on monitor Plan Chronic medical problems CKD- Baseline Cr 2.1-2.3, was given 1L IV on admission and BUN/Cr worse 21/2.46. Was continued on lasix PO daily, will place on hold for now/encourage PO. Renal dose meds/avoid nephrotoxins. BMP in AM Neuropathy: gabapentin continued, monitor to adjust for renal function Hypothyroidism: TSH wnl earlier this month and continues on synthroid current dosing HTN: metoprolol, lasix, losartan. Will place lasix on hold for am, monitor to hold losartan if renal function worsened GERD: PPI continued, does have hx esophagitis. monitor to increase to BID if needed Mental Health: Sertraline continued DVT proph: Lovenox Dispo: Waiting to discuss imaging comparisons with radiology. Will need EUS ou tpatient with [facility]. Defer to outpatient provider to f/u on autoimmune testing results. May need anticoag clinic referral if needing Lovenox outpatient Discussed case with radiology and case management Updated daughter via phone call Admission and Anticipated Discharge Date Admission Date: May 14, 2024 Supervising Physician Co-Signing Physician Notes Attending Attestation - Chart reviewed, care plan d/w ETHAN Suarez. I agree w/ the goodrich components of her documentation. Await radiology opinion re: doppler studies (old vs new DVT). Supportive care & Tamiflu for influenza infection. Disposition - [facility] vs SNF. Mark Vazquez MD Subjective Patient seen and evaluated at bedside. He denies any lightheadedness or dizziness. We discussed that his blood pressure was reportedly low with therapy earlier; obtained repeat orthostatic VS at bedside during my visit which were unremarkable and patient was asymptomatic other than feeling tired after prolonged standing. We discussed that I am still waiting to hear back from radiology regarding his DVTs, which will determine his anticoagulation. He reports some left ear discomfort secondary to wax buildup, we discussed using drops outpatient to soften the wax. Denies nausea, abdominal pain, diarrhea, or any other acute complaints/concerns at this time. Physical Exam Physical Exam: General: No acute distress, nondiaphoretic, jaundiced appearance slightly improving. Hard of hearing. Cardiac: Regular rate/paced on tele without murmurs gallops or rubs. RLE>LLE nonpitting edema. Distal pulses present bilaterally. Pulm: Diminished at bases but otherwise clear to auscultation bilaterally without wheezes, rales or rhonchi. No respiratory distress. 97% on room air. Abdominal: Soft, nontender, distended secondary to body habitus. Bowel sounds present. No organomegaly, guarding, or rebound tenderness. Neuro: A&O x3. No focal neurological deficits. Results & Data Results & Data Vital Signs (Past 12 Hours) Vital Signs Temp Pulse Resp BP Pulse Ox O2 Del Method 05/18/24 16:16 97.7 F 90 18 135/87 97 Room Air 05/18/24 11:04 97.5 F L 91 H 18 93/56 L 98 Room Air 05/18/24 08:00 Room Air 05/18/24 07:45 97.7 F 90 18 129/80 94 Room Air Laboratory Results Reviewed CMP PG Care Time/CCT Total # of Minutes Spent Total Time Spent with Patient: Total time spent is greater than 50% in coordination of care (as documented) at patient's floor/unit and/or counseling patient: Coding Level of Care Code 57887 SUB INP/OBS CARE 3/50MIN Diagnoses Influenza J11.1 Elevated LFTs R79.89 DVT (deep venous thrombosis) I82.409 Diabetic peripheral neuropathy associated with type 2 diabetes mellitus E11.42 Generalized weakness R53.1
[2024-05-18 23:05] VITALS: RESP 18
--- NOTE | 2024-05-19 10:57 | Pharmacy Report ---
Pharmacy Glycemic Short Note 2 - Date of Service May 19, 2024 - Glycemic Short BSG Results (Last 24 hours): 05/18/24 05/18/24 05/18/24 12:04 17:08 20:08 POC Glucose 187 H 204 H 193 H 05/19/24 07:56 POC Glucose 150 H OUTPATIENT ANTIDIABETIC REGIMEN: * Tresiba 40mg SQ Q AM * Ademelog sliding scale * Jardiance 25mg po daily HbA1c 7.4% on 05-10-24 ASSESSMENT: 05/19: * Patient received a total of 48 units of insulin yesterday (20 were basal and 28 were bolus). BSGs were 012-318-283-193mg/dL * Fasting BSG this morning was 150mg/dL. Will continue the current dose of Lantus QAM and will tighten the CR starting with lunch today. 05/16: * Gerry received 28 units of insulin yesterday, 10 of which were basal. BSGs were: [phone] mg/dL. * Fasting BSG this Am was 135 mg/dL. Patient is NPO for a MRCP today around noon. Will hold off on any further basal insulin until diet is resumed and being tolerated. Suspect patient will require 10 more units at some point this evening. * No change to Novolog at this time. 05/15: * 79 year old male admitted 05/14 for weakness/influenza A infection. Pharmacy was consulted for glycemic management while he is admitted. * BSGs were 148 and 173mg/dL last evening, so Novolog was initiated using weight based dosing (using adjusted bw) with a stress of 2. He only required 1 unit of insulin last evening. * Fasting BSG was 171mg/dL this morning so 10 units of Lantus x 1 was given (Did not want to start with the full dose that he was receiving at home as during admission last week pt had lower BSGs, with a low of 82mg/dL without receiving any basal insulin.) Bolus insulin with the parameters ordered last evening was continued. Over night BSG checks were added to ensure he is within goal range since he was not given his full dose of basal insulin today. PLAN FOR INPATIENT GLYCEMIC CONTROL: * Hold outpatient diabetes medications * Basal insulin * Lantus 20 units QAm * Bolus insulin * NovoLog per scale ACHS or Q6hrs while NPO * Goal Range: Low 110 mg/dL - High 140 mg/dL * Correction Factor: 20 mg/dL/unit * Nutritional / Prandial insulin per carb ratio of 1 unit per 6 grams CHO consumed
[2024-05-19 11:02] LABS: Albumin Globulin Ratio 0.9 (0.9-2); Albumin Level 2.9 gm/dl (3.4-5.0); BUN Creatinine Ratio 15.5 (10-20); Bilirubin,Total 2.8 mg/dl (0.2-1.0); Calcium 8.6 mg/dl (8.6-10.3); Creatinine Clr Calc Pharmacy 28.9 ml/min; Globulin 3.2 gm/dl (2.5-4.0); Potassium 3.6 mmol/L (3.5-5.1); Total Protein 6.1 gm/dl (6.0-8.3)
[2024-05-19 11:05] VITALS: PULSE 63; TEMP 97.5; O2SAT 98
[2024-05-19 11:07] VITALS: BP 104/62
--- NOTE | 2024-05-19 18:36 | Discharge Summary ---
Discharge Summary Date of Service May 19, 2024 Principal Dx & Hospital Course #1 = Principal Diagnosis (1) Influenza: 79 year old male with past medical history of DVT, DM II, depression, hypertension, esophagitis who presented to the ED on 05/14/24 with complaints of weakness in LE, cough, runny nose. Was admitted earlier this month for CT scan with elevated LFTs 2nd to transaminitis/jaundice with recs for outpatient GI f/u. Has not felt well since recent discharge. +Flu testing on admission Continue Tamiflu through 05/19/24, supportive care with incentive spirometer Stable on room air (2) Elevated LFTs: Concern for new pancreatic cancer given recent CT, elevated LFTs, jaundice appearance on exam with no abdominal pain GI consult to assist with workup Unfortunately unable to do MRCP due to pacemaker incompatibility Recommend EUS with [facility] outpatient - referral made If unresectable could consider metallic pancreatic stent CA 19-9 elevated at 47, consistent with our concern for pancreatic cancer. F/u prior lab testing for autoimmune as obtained last week. Defer to outpatient provider Continue cholestyramine for itching Statin/Mounjaro held inpatient as they can cause elevated LFTs; resumed on dc LFTs trended down (3) DVT (deep venous thrombosis): On admission, doppler showed acute vs subacute DVT in right lower extremity Patient with history of DVT in right lower extremity per imaging in 2023 & 2021 and has RLE edema>RLE on exam w/ increased swelling and given concerns for malignancy/hypercoagulable state, Eliquis switched to Lovenox Had radiology review venous Doppler from this admission to venous Doppler from September 2023 at [facility]. 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 Therefore, can return to/continue on Eliquis 5 mg BID (4) Diabetic peripheral neuropathy associated with type 2 diabetes mellitus: On Insulin, Kimmy Vick at baseline -- HELD inpatient, resumed on dc A1c in May 7.5 Sliding scale has been ordered and will monitor/adjust as needed (5) Generalized weakness: Suspect combination of flu but also more likely 2nd to new pancreatic mass finding/concerns for malignancy and +Doppler. Eliquis switched to Lovenox as above Head CT - no acute intracranial abnormality/calvarial fx. large chronic right frontal lobe infarct. chronic appearing basal ganglia lacunar infarcts. L > R mastoid & middle ear effusions CXR - no gross interval changes since previous study Lumbar spine CT - no acute fx/subluxation. chronic endplate irregularity of lower lumbar spine. central canal and neural foraminal narrowing of lower lumbar spine is similar vs mildly worsened from myelogram in 10/2022. Subacute to chronic appearing superior endplate Schmorl's node at L4 has progressed from 10/2022. PT/OT recommend patient return to [facility] Trop 54--> 53, suspect demand ischemia from infection/above. No CP/SOB. Paced on monitor Plan Chronic medical problems CKD- Baseline Cr 2.1-2.3, Neuropathy: gabapentin continued, monitor to adjust for renal function Hypothyroidism: TSH wnl earlier this month and continues on Synthroid current dosing HTN: metoprolol, lasix, losartan GERD: PPI continued, does have hx esophagitis Mental Health: Sertraline continued DVT proph: Lovenox Dispo: PT/OT recommended return to [facility]. [facility] reviewed their evals and confirmed patient can return. Discharged to [facility] 05/19/24. Notes For Next Care Provider Recommend close follow-up with [facility] for EUS -- concern for underlying pancreatic cancer Admission HPI Per Admitting Provider This is a 79 year old gentleman with past medical history of DVT, Type 2 Diabetes, depression, hypertension, esophagitis who presented to the ED on 05/14/24 with complaints of weakness. Patient was seen and examined at bedside. Patient reports that over the last two days he has developed worsening weakness in his lower extremities, a cough, and runny nose. He reports he came to the hospital for a CT scan on 05/12 and has not felt well since. He denies any chest pain, shortness of breath, fevers, or chills. denies any abdominal pain, nausea, vomiting. He does not feel his lower extremities are painful or appear more swollen. He states he has a history of a DVT and is compliant with his medications. At baseline patient does use a wheelchair due to his leg weakness. While in the ED he was found to be positive for influenza A and was given a dose of Tamiflu. He underwent a doppler US that revealed acute vs subacute DVT in right lower extremity. He had a negative CXR. He had a head CT that revealed no acute intracranial abnormality or calvarial fracture. Lumbar spine CT without fracture or subluxation Code discussion w/ patient and he did confirm that he is a full code. Discharge Exam General: No acute distress, nondiaphoretic, jaundiced appearance slightly improving. Hard of hearing. Cardiac: Regular rate/paced on tele without murmurs gallops or rubs. RLE>LLE nonpitting edema. Distal pulses present bilaterally. Pulm: Diminished at bases but otherwise clear to auscultation bilaterally without wheezes, rales or rhonchi. No respiratory distress. 98% on room air. Abdominal: Soft, nontender, distended secondary to body habitus. Bowel sounds present. No organomegaly, guarding, or rebound tenderness. Neuro: A&O x3. No focal neurological deficits. Discharge Plan Discharge Items Patient Disposition: Personal Alf Reason For Visit: WEAKNESS Discharge Diagnosis: Influenza A Elevated LFTs, concern for pancreatic CA Activity: Resume your previous activity Non-emergency contact: Primary Care Provider and Brush Cleaner Call non-emergency contact if: you have any medication questions and your symptoms worsen Follow-up/Referrals: Alek Vera DO [Primary Care Provider] - (Follow-up in 1-2 weeks) Diet: Carb Consistent or DM2 and Heart Healthy Addtl Attending Provider Instructions: Mr. Gambino, You were admitted to the hospital with influenza A (the flu). This is what caused your symptoms of weakness, cough, and runny nose. You completed treatment with a course of Tamiflu while in the hospital. You were also evaluated by the GI team due to concern for elevated LFT labs. They attempted to perform an MRCP procedure, but unfortunately could not do this due to your pacemaker incompatibility. You have been referred to [facility] who will perform an EUS (endoscopic ultrasound) outpatient. There is concern for underlying pancreatic cancer, as discussed, and this test can confirm a diagnosis. There was also some concern regarding new vs chronic blood clots in your right leg. Our radiologist reviewed your ultrasound from this admission and compared it to your ultrasound from [facility] in September 2023, and felt these to be chronic blood clots. This means you can continue your Eliquis as previously prescribed. Upon discharge from the hospital: * Follow-up with [facility] for outpatient procedure/further workup. * Continue Eliquis 5 mg twice daily. * Continue cholestyramine twice daily to help with itching associated with elevated LFTs. * Continue your other home medications as prescribed. * Follow-up with your PCP in 1-2 weeks. Please return to the hospital if you experience any of the following: Chest pain, shortness of breath, persistent nausea with vomiting or diarrhea, unable to tolerate oral intake, dizziness, passing out, confusion, or any other symptoms concerning for you. It was a pleasure taking care of you while you were in the hospital! Pending Studies at Discharge: Yes (autoimmune testing) Stand-Alone Forms: My [employer], Smoking Cessation Skilled Items Patient informed of condition?: Yes DNR: No Discharge Level of Care: Other Communicable Disease: No Discharge Prognosis: Stable Lines: None Urinary Catheter: No Medications and DC Order Prescriptions: New cholestyramine-aspartame [Prevalite] 4 gram Powder In Packet 1 ea PO BID Qty: 60 0RF Continued (DME) FreeStyle Maisha 2 Sensor Kit See Rx Instructions .Route Qty: 2 11RF Rx Instructions: Change every 14 days pantoprazole 40 mg tablet,delayed release (DR/EC) 40 mg PO QAM nitroglycerin 0.4 mg tablet, sublingual 0.4 mg sublingual Q5M PRN (Reason: Chest Pain) Rx Instructions: do not exceed 3 doses per episode ondansetron 4 mg tablet,disintegrating 4 mg PO Q8H PRN (Reason: Nausea And Vomiting) (DME) sharps bin-insulin syrin-needl 1 mL 30 gauge x 5/16" syringe See Dose Instructions .ROUTE .MEDSUPPLY Qty: 1 Rx Instructions: As directed (DME) lancets [OneTouch Delica Plus Lancet] 30 gauge misc See Rx Instructions .ROUTE .MEDSUPPLY Rx Instructions: Test blood sugar once daily PRN (DME) FreeStyle Maisha 2 [place] Misc See Rx Instructions .Route Rx Instructions: As directed Eliquis 5 mg tablet 5 mg PO BID Qty: 180 1RF Rx Instructions: 5 mg po BID (DME) pen needle, diabetic [BD Ultra-Fine Micro Pen Needle] 32 gauge x 1/4" needle See Rx Instructions .Route Qty: 100 3RF Rx Instructions: use twice daily aspirin 81 mg Tablet,Delayed Release (Dr/Ec) 81 mg PO QAM Jardiance 25 mg tablet 25 mg PO UD Hold Instructions: Provider's Order due to renal failure. will defer to PCP as to when to resume Rx Instructions: Suspended through 06/03/24. Original Directions: 25mg by mouth in the morning Mounjaro 5 mg/0.5 mL pen injector 5 mg SUBCUT UD Hold Instructions: Provider's Order holding due to hepatitis Rx Instructions: Currently on hold/suspended through 06/03/24. Original Directions: 5mg once weekly on Wed amlodipine [Norvasc] 5 mg Tablet 5 mg PO QAM Qty: 30 2RF sennosides [Senokot] 8.6 mg Tablet 17.2 mg PO QAM Qty: 60 2RF metoprolol succinate 50 mg tablet extended release 24 hr 50 mg PO BID Qty: 60 2RF insulin lispro [Admelog SoloStar U-100 Insulin] 100 unit/mL insulin pen 1 sliding scale dose subcut USEASDIRECTD Qty: 0 0RF Rx Instructions: SS before meals and at Bedtime: 151-200=4 units; 201-250=6 units; 251- 300=10 units; 301-350 = 12 units; 351-400= 15 units; 401 or greater give 15 units and call physician. Ear Wax Removal Drops 6.5 % Drops 5 - 10 drp OTIC (EAR) BID atorvastatin 80 mg tablet 80 mg PO HS potassium chloride 10 mEq tablet extended release 10 meq PO QAM calcitriol 0.5 mcg capsule 0.5 mcg PO QAM gabapentin 300 mg capsule 300 mg PO HS furosemide 20 mg tablet 10 mg PO QAM sertraline 50 mg tablet 75 mg PO QAM terazosin 10 mg capsule 10 mg PO QAM Rx Instructions: TAKE 1 CAPSULE DAILY levothyroxine 112 mcg capsule 112 mcg PO QAM insulin degludec [Tresiba FlexTouch U-100] 100 unit/mL (3 mL) insulin pen 0 unit subcut QAM Hold Instructions: Provider's Order Blood sugars are controlled. will hold until blood sugars rise. may need a lower dose. Rx Instructions: Currently on hold/suspended through 06/03/24. Original Directions: 40units subcut every morning magnesium oxide 400 mg magnesium tablet 400 mg PO QAM losartan 50 mg tablet 50 mg PO QAM polyethylene glycol 3350 [ClearLax] 17 gram Powder In Packet 17 g PO QAM oicloblp-lssypshtj-onxbscjexl 1.75 mg-10,000 unit-0.025mg/mL drops See Rx Instructions .ROUTE .COMPLEX Rx Instructions: Instill 2 drops into affected ear TID Discontinued cholestyramine-aspartame [Prevalite] 4 gram Powder In Packet 1 ea PO BID 14 Days Qty: 60 0RF Rx Instructions: Start Date 05/10/24 x14 day supply Discharge Orders: Discharge Order (Routine); Ordered 05/19/24 Ordered By: Bonnie Fulton/Other Patient Handouts: Oseltamivir Oral Suspension, The Flu (Influenza), Ear Infection Adult Admission Data Admit Date/Time: 05/14/24 13:28 Attending Provider: Mark Vazquez Admit Provider: Mark Quinones Primary Care Provider: Alek Vera Other Providers: Moris Owen; Lee Gaston; Emilee Jimenez; Melany Stone; Mona Quinones; Ramonita Rodriguez; Ross Strickland; Art Jessica; Inderjit Sosa; Missy St; Sravanthi Falcon; Suzanna Haynes; Meaghan Naranjo; Laura Oneal; Mony Pino; Tutu Enamorado; Stacie Montanez; Sang Mayer Jr; Rony Baca.; Doug Thompson; Tae Almeida; Quang Ryan; Cordelia Sheppard; Noe Martinez I; Meg Polo; Chilango Zuleta Other Interventions: Discharge Summary Assessment (RN) Last Done: 05/19/24 11:05 Hospital Stay Data Consultations 05/14/24 18:05 Consult Gastroenterology Routine Diagnostic Imagining Performed 05/14/24 07:35 CT head/brain wo con Stat CT lumbar spine wo con Stat 05/14/24 09:11 US venous doppler LE RT Stat Pending Results Patient Have Any Pending Studies at Discharge: Yes (autoimmune testing) Discharge Instructions Given to Patient (Per Discharging Provider) Mr. Gambino, John were admitted to the hospital with influenza A (the flu). This is what caused your symptoms of weakness, cough, and runny nose. You completed treatment with a course of Tamiflu while in the hospital. You were also evaluated by the GI team due to concern for elevated LFT labs. They attempted to perform an MRCP procedure, but unfortunately could not do this due to your pacemaker incompatibility. You have been referred to [facility] who will perform an EUS (endoscopic ultrasound) outpatient. There is concern for underlying pancreatic cancer, as discussed, and this test can confirm a diagnosis. There was also some concern regarding new vs chronic blood clots in your right leg. Our radiologist reviewed your ultrasound from this admission and compared it to your ultrasound from [facility] in September 2023, and felt these to be chronic blood clots. This means you can continue your Eliquis as previously prescribed. Upon discharge from the hospital: * Follow-up with [facility] for outpatient procedure/further workup. * Continue Eliquis 5 mg twice daily. * Continue cholestyramine twice daily to help with itching associated with elevated LFTs. * Continue your other home medications as prescribed. * Follow-up with your PCP in 1-2 weeks. Please return to the hospital if you experience any of the following: Chest pain, shortness of breath, persistent nausea with vomiting or diarrhea, unable to tolerate oral intake, dizziness, passing out, confusion, or any other symptoms concerning for you. It was a pleasure taking care of you while you were in the hospital! Total Time Total Time Spent Total Time Spent (In Minutes): Greater than 30 minutes spent completing this discharge process including direct patient care, medication reconciliation, documentation, review of labs and images, and coordination of care. Coding Level of Care Code 28215 INP/OBS DISCH >30 MIN Diagnoses Influenza J11.1 Elevated LFTs R79.89 DVT (deep venous thrombosis) I82.409 Diabetic peripheral neuropathy associated with type 2 diabetes mellitus E11.42 Generalized weakness R53.1
== END 2024-05-19 12:14 | disposition home health service (06) | DRG 193 ==
LOC: ED 06:18 → SUATTDRO 13:28 → 2N 13:28

== ENCOUNTER 2024-05-20 11:05 | Inpatient (IN) ==
--- OUTSIDE RECORDS SUMMARY | 2024-05-20 11:10 | External Medical Summary | Summary of Care ---
Author Name Unknown Organization [facility] Address [address] [place] [address] Phone [phone] Care Team Providers Care Program Analyst Name Role Phone Alek Vera Primary Care Provider + [phone] Reason for Visit * Reason Onset Date Comments Imaging Records Request 05/17/2024 Encounter Details Date Type Department Care Team (Late st Contact Info) Description 05/17/2024 Telephone Radiology Film File [address] [place] [address] Support, Imaging Radiology [address] [place] [address] Imaging Records Request Allergies Active Allergy Reactions Criticality Noted Date Comments Cefaclor 11/19/1998 ITCHING Oxycodone 03/24/2012 "Makes me goofy" documented as of this encounter (statuses as of 05/17/2024) Medications TERAZOSIN HCL 10 MG PO CAPS [...] to be determined,Ceballos ry artery disease involving cabazon coronary artery of cabazon heart without angina pectoris Take 1 Tablet by mouth every afternoon. 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 90 Tablet 3 023 Active Additional Information Patient taking differently: 10 mgOral Daily(AM), Reported on 04/03/2024 Nitroglycerin 0.4 MG Sublingual Tablet Sublingual (Nitrostat)Indica tions:Coronary artery disease involving cabazon heart PLACE 1 TABLET UNDER THE TONGUE [...] the skin in the morning. 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 10/31/2014 Hematuria, [...] as of this encounter (statuses as of 05/17/2024) Resolved Problems Problem Noted Date Diagnosed Date [...] Chest pain 09/28/2012 02/06/2013 [employer] Other*[id number] 09/28/2012 05/12/2016 Overview (09/28/2012): Study Title: Genomic Markers for Patients with Cardiovascular Disease Project # [id number] Bag Shaker: Jody Grijalva MD [phone] [facility] cerumen 03/01/2012 01/30/2015 Otitis externa, acute 03/01/20122014 [...] as of this encounter (statuses as of 05/17/2024) Immunizations Name Administration Dates Next Due COVID-19 mRNA, LNP-s, No Pre serve, 2-Dose Series (Moderna) 07/20/2020,06/22/2020 Pneumococcal Conjugate Vacci ne, 20-valent (Pcyipvo18) 09/12/2023,09/11/2023(Deferred: Patient Refused - " I want [...] encounter Miscellaneous Notes * Telephone Encounter - Dori Payne, System Support - 05/17/2024 11:39 AM EST Hayden Sheikh requesting ALL 09/2023. images be pushed through PACS. [place] Authorization to Release on file. Images pushed to [facility] PACS external connection. documented in this encounter Plan of Treatment Upcoming Encounters Date Type Department Care Team (Late st Contact Info) Description 03/12/2025 10:00 AM EST Office Visit Cardiology, [place] [address] [address] Stacie Augustine CRNP [address] [id number] Scheduled Procedures Name Priority Associated Diagnoses Date/Ti [...] Additional history exists CKD PHOS USE SMARTSET 17302 09/09/2024 06/0 10/2023, 09/05/2023, 11/18/2021 GFR 09/25/2024 03/27/2024, 09/03, 09/13/2023, Additional history exists TSH 10/10/2024 10/11/2023, 09/03, 09/07/2023, Additional history exists CKD HGB USE SMARTSET 32860 03/27/202503/27, 09/20/2023, 09/13/2023, Additional history exists DTap/Tdap [...] this encounter Medical Devices Implanted Type Area Bill Hiker Device Identifier Shelf Expiration Date Model / Serial / Lot Pacemaker Dr-Rf [id number] - [id number] - [id number] Implanted:Qty: 1 on 04/03/2024 by Ashley Quezada, at OR [facility] Pacemaker Right: Chest [employer] 07/03/2025 [id number] / [id number] / Medtronic Implanted:Qty: 1 on 12/27/2014 by Ashley Quezada, at OR [facility] Right: Chest [employer] : CRM 11/26/2016 5076-52 / [id number] / [id number] Description:atrial lead Medtronic Ventricular Lead Implanted:Qty: 1 on 12/27/2014 by Ashley Quezada DO at OR [facility] Right: Chest [employer] : CRM 11/01/2016 5076-58 / [id number] / documented as of this encounter Advance Directives Documents on File Type Date Recorded Patient Sand Polisher Expl anation Advance Directives and Living Will 09/07/2023 Caroylne Cooper signed on 01/26/2019 Living Will and Health Care Power of Risk Lead * Full Code (Latest Code Status on [...] Agen t (per Health Care Power of Risk Lead document) Ginger Cooper Adult Child First Alternate Health Care Agent (per Health Care Power of Risk Lead document) Care Teams Program Analyst Relationship Specialty Start Date End Date Alek Vera DO [address] [place], [place] [id number] PCP - General Family Medicine 02/16/22 documented as of this encounter
--- NOTE | 2024-05-20 11:31 | Emergency Department Note ---
Impression & Plan Anemia, Generalized weakness, Elevated LFTs, Hematoma of left forearm, Hematuria ED Provider Note NAME: FIDELIA SERRANO AGE: 79 SEX: M : 1945 ARRIVES VIA: Ambulance INFORMANT: Patient ED PROVIDER(S): Bill Brambila MD CHIEF COMPLAINT: Generalized weakness, referred. PLAN: Disposition: Admit MEDICAL DECISION MAKING: The patient is a pleasant 79-year-old gentleman with a past medical history of DVT/pulmonary embolism on Eliquis, hypertension, hyperlipidemia, hypothyroidism, morbid obesity who presents to the emergency department via EMS from his assisted living facility at [place] for evaluation of generalized weakness where he was found on the ground last night around 4 AM when he slipped out of his bed. Patient refused transport last night but did agree for transfer today. He was noted to be hypotensive. The patient was admitted to this facility from 05/14-05/19 for influenza. He was also incidentally diagnosed with a pancreatic lesion which is to be further evaluated outpatient with EUS and endoscopy. Patient denies any chest pain, shortness of breath, nausea or vomiting. He reports he did eat lunch upon returning back to his facility yesterday. He is being treated for an ear infection per report. Staff were concerned because he had bleeding in his right ear which apparently was due to the patient picking at his right ear with a long fingernail. The patient denies head strike or loss of consciousness. On evaluation the patient is acute on chronically ill-appearing but no distress, afebrile blood pressure in the 90s/50s and vital signs otherwise stable. BP improved following IVF hydration. He appears clinically dry. He has mild jaundice. He has a chronic right foot drop and otherwise moves all extremities with equal strength and generalized weakness. Left forearm with subtle minor ecchymotic areas without overt hematoma. He exhibits full range of motion of left lower extremity without difficulty. EKG demonstrates a AV dual paced rhythm without overt acute ischemia. CXR negative for acute cardiopulmonary process per my personal preliminary review/interpretation. WBC within normal limits. H/H 8.5/26.9 down from 10.9/34.1 on 05/17. MCV is normocytic. There is no neutrophilia or left shift. INR is 1.3. Chemistry with creatinine of 2.6, similar to recent range values in setting of CKD. There is no metabolic acidosis. Iron studies were obtained and there is no iron deficiency. LFTs are similar to recent with total bilirubin of 2.9 and direct bili 1.2 with AST and ALT 236 and 100, respectively. Alk phos is 576 down from 700s. Positivity troponin 44, nonspecific. TSH 3.6 wnl. Lipase is normal. Respiratory BioFire remains positive for influenza A. CT of the head and C-spine were performed were negative for acute abnormalities. Given the patient's generalized weakness the patient was referred to the hospital service for further management. Case was discussed with Dr. Carias, [facility] hospitalist, who evaluated the patient for admission. Of note, on hospice assessment the patient's left upper extremity had developed ecchymosis extending from the proximal inner upper arm down to the forearm with palpable hematoma on the radial aspect of the proximal left forearm. There is no warmth or significant tenderness. Compartments are soft. Distal PMS is intact. Patient is a poor historian reports that this had been present in a more minimal degree on his recent hospitalization though was not noted on his initial presentation here today. UA was subsequently obtained and did demonstrate gross hematuria. Admitting team aware. XR of the left humerus and forearm obtained and negative for overt fracture or dislocation. Left elbow effusion is described with soft tissue swelling. CT abd/pelvis was obtained. This subsequent was negative for acute intra-abdominal process. Suggestion of abdominal wall cellulitis is likely related to the patient's body habitus and component of third spacing with mildly low albumin. Further management per admitting team. Triage Nursing notes reviewed and agree them. Prior/external medical records reviewed Vital Signs: reviewed Differential diagnosis: Infection, dehydration, metabolic abnormality, hypo/hyperglycemia, electrolyte disturbance, anemia, hypoxia, cardiac sources, intracerebral event, toxicologic, neurologic, as well as other pathologies. ER treatment provided: See below. Diagnostics interpreted by me: ECG: AV dual paced rhythm, 62 bpm, no ectopy, no overt acute ischemia. Cardiac Monitoring: An order for continuous cardiac monitoring was placed and demonstrated AV dual paced rhythm, 62 bpm, no ectopy Laboratory studies: See below Imaging studies: See below Consultation(s): Case was discussed with Dr. Carias, [facility] hospitalist, who will evaluate the patient for admission. HPI: The patient is a pleasant 79-year-old gentleman with a past medical history of DVT/pulmonary embolism on Eliquis, hypertension, hyperlipidemia, hypothyroidism, morbid obesity who presents to the emergency department via EMS from his assisted living facility at [place] for evaluation of generalized weakness where he was found on the ground last night around 4 AM when he slipped out of his bed. Patient refused transport last night but did agree for transfer today. He was noted to be hypotensive. The patient was admitted to this facility from 05/14-05/19 for influenza. He was also incidentally diagnosed with a pancreatic lesion which is to be further evaluated outpatient with EUS and endoscopy. Patient denies any chest pain, shortness of breath, nausea or vomiting. He reports he did eat lunch upon returning back to his facility yesterday. He is being treated for an ear infection per report. Staff were concerned because he had bleeding in his right ear which apparently was due to the patient picking at his right ear with a long fingernail. The patient denies head strike or loss of consciousness. ROS: See above HPI for pertinent positives & negatives. A total of 10 systems reviewed and were otherwise negative. VITALS:See Below PHYSICAL EXAMINATION: GENERAL: Awake, alert, acute on chronically ill-appearing, in no distress, BMI 34.9. HENT: Normocephalic, atraumatic. Oropharynx with dry mucous membranes. Right EAC with punctate abrasion of the canal without active bleeding following manual evacuation of minor clot. Right TM is clear. Left TM is clear with mild fullness of the EAC following manual removal of tissue that had been placed in the canal. EYES: Normal conjunctiva. Sclera non-icteric. EOMI. No nystamgus. PEARRL. NECK: Supple. No nuchal rigidity. FROM. No JVD. RESPIRATORY: Rhonchi of bilateral mid to lower lung benites. CARDIAC: Regular rate, normal rhythm. Extremities warm and well perfused. Pulses equal. ABDOMEN: Soft, non-distended. Pannus. No tenderness to palpation. No rebound or guarding. MUSCULOSKELETAL: Chest examination reveals no tenderness. The back is symmetrical on inspection without obvious abnormality. There is no CVA tenderness to palpation. Left forearm with subtle minor ecchymotic areas without overt hematoma. He exhibits full range of motion of left lower extremity without difficulty. LOWER EXTREMITIES: Calves are equal size bilaterally and non-tender. No edema. No discoloration. NEURO: No focal sensory or motor deficits noted. Chronic right foot drop and otherwise moves all extremities with equal strength and generalized weakness. SKIN: Mild jaundice noted. Bill Brambila MD Past Med/Surg History Problem List Hematuria (Acute) Hematoma of left forearm (Acute) Generalized weakness (Acute) Anemia (Acute) Biliary obstruction DVT (deep venous thrombosis) Swelling of right lower extremity (Acute) Elevated LFTs (Acute) Influenza (Acute) Generalized weakness (Acute) Abnormal LFTs (Acute) Jaundice (Acute) History of DVT (deep vein thrombosis) Acute metabolic encephalopathy Scalp abscess (Acute) Cellulitis of scalp (Acute) Right otitis media Finger pain, left Encounter for screening colonoscopy Toe injury Traumatic loss of toenail of right great toe Vitamin D deficiency Bilateral pulmonary embolism Lumbar back pain with radiculopathy affecting left lower extremity Albuminuria Hypertension Diabetes type 2, uncontrolled Pulmonary nodule Sleep apnea (Chronic) Secondary hyperparathyroidism (Chronic) Morbid obesity (Chronic) Lumbar spinal stenosis (Chronic) Hypothyroidism (Chronic) Dyslipidemia (Chronic) Dysesthesia (Chronic) Diabetic peripheral 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) Depression (Chronic) Chronic reflux esophagitis (Chronic) Cardiac pacemaker (Chronic) CHF (congestive heart failure) (Chronic) Arteriosclerotic cardiovascular disease (Chronic) Anemia (Chronic) Background diabetic retinopathy associated with type 2 diabetes mellitus Hypomagnesemia Chronic anemia (Acute) Medical History Chronic kidney disease, stage III (moderate) Acute respiratory failure JUANPABLO (acute kidney injury) Colon polyps Elevated transaminase level Hematuria Tinea pedis of both feet Vitamin D deficiency Surgical History History of incision and drainage (12/15/23) Incision and Drainage of Scalp Abscess x 2(Not Applicable) - Sarbjit Bai DO History of colonoscopy History of tonsillectomy History of mandibular surgery History of cholecystectomy History of coronary artery stent placement History of cardiac cath History of cataract surgery Family History Father Lung cancer Brother Lung disease Lung cancer Denies family history of Ovarian cancer Prostate cancer Myocardial infarction Breast cancer Colorectal cancer Social History Smoking Status: Never smoker Age Started Using Tobacco: 20; Age Quit Using Tobacco: 21; Second Hand Exposure: Yes; Hx Alcohol Use: No Hx Substance Use: No Preferred Language: Ugandan Communication Ability: Effective Visual Impairment: No Limitations Hearing Ability: Use of Hearing Aid Seismic Interpreter Required: No Beliefs That Will Affect Care: None marital status: / Current Living Situation: Personal Care Facility current occupational status: retired 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 How many Children do You have: 2 Feels Safe at Home: Yes Childhood Exposure to Second-Hand Smoke: No Diet: regular Diet Comment: Regular Diet caffeine: No during the past year weight has: remained stable Dental Care, Regularly: No Physical Activity Frequency: Does not Exercise Seatbelt Use: sometimes Sunscreen Use: No Assistive Devices: Walker and Wheelchair Allergies Allergies Allergy/AdvReac Type Severity Reaction Status Date / Time cefaclor AdvReac Intermediate RASH Verified 05/14/24 14:48 oxycodone AdvReac Intermediate "I GET ALL Verified 05/14/24 14:48 GOOFY" Home Meds Home Medications Medication Instructions Recorded Confirmed sharps container-insulin syringe ##1 10/05/18 01/12/24 and needle 1 mL 30 gauge x 5/16" aspirin 81 mg tablet,delayed 81 mg PO QAM 05/28/21 05/20/24 release flash glucose scanning reader 07/04/21 01/12/24 (FreeStyle Maisha 2 Godfrey) lancets 30 gauge (OneTouch Delica 07/04/21 01/12/24 Plus Lancet) nitroglycerin 0.4 mg sublingual 0.4 mg sublingual Q5M PRN Chest 11/11/23 05/20/24 tablet Pain ondansetron 4 mg disintegrating 4 mg PO Q8H PRN Nausea And Vomiting 11/11/23 05/20/24 tablet pantoprazole 40 mg tablet,delayed 40 mg PO QAM 11/11/23 05/20/24 release empagliflozin 25 mg tablet 25 mg PO UD 12/11/23 05/20/24 (Jardiance) tirzepatide 5 mg/0.5 mL 5 mg subcut UD 12/11/23 05/20/24 subcutaneous pen injector (Keyla) atorvastatin 80 mg tablet 80 mg PO HS 05/09/24 05/20/24 calcitriol 0.5 mcg capsule 0.5 mcg PO QAM 05/09/24 05/20/24 carbamide peroxide 6.5 % ear drops 5 - 10 drp otic (ear) BID 05/09/24 05/20/24 (Ear Wax Removal Drops) furosemide 20 mg tablet 10 mg PO QAM 05/09/24 05/20/24 gabapentin 300 mg capsule 300 mg PO HS 05/09/24 05/20/24 insulin degludec 100 unit/mL (3 0 unit subcut QAM 05/09/24 05/20/24 mL) subcutaneous pen (Tresiba FlexTouch U-100 insulin) levothyroxine 112 mcg capsule 112 mcg PO QAM 05/09/24 05/20/24 magnesium oxide 400 mg PO QAM 05/09/24 05/20/24 potassium chloride 10 mEq 10 meq PO QAM 05/09/24 05/20/24 tablet,extended release sertraline 50 mg tablet 75 mg PO QAM 05/09/24 05/20/24 terazosin 10 mg capsule 10 mg PO QAM 05/09/24 05/20/24 losartan 50 mg tablet 50 mg PO QAM 05/14/24 05/20/24 neomycin 1.75 mg-polymyxin 10,000 See Rx Instructions .Route .COMPLEX 05/14/24 05/20/24 unit-gramicidin 0.025mg/mL eye drops polyethylene glycol 3350 17 gram 17 g PO QAM 05/14/24 05/20/24 oral powder packet (ClearLax) Previous Rx's Medication Instructions Recorded flash glucose sensor (FreeStyle #2 ea 07/09/21 Maisha 2 Sensor kit) pen needle, diabetic 32 gauge x #100 ea 05/27/22 1/" (BD Ultra-Fine Micro Pen Needle) apixaban 5 mg tablet (Eliquis) 5 mg PO BID #180 tabs 04/28/23 amlodipine 5 mg tablet (Norvasc) 5 mg PO QAM #30 tabs 12/20/23 insulin lispro 100 unit/mL 1 sliding scale dose subcut 12/20/23 subcutaneous pen (Admelog SoloStar USEASDIRECTD #0 mL U-) metoprolol succinate 50 mg 50 mg PO BID #60 tabs 09/16/24 tablet,extended release 24 hr sennosides 8.6 mg tablet (Senokot) 17.2 mg (2 x 8.6 mg) PO QAM #60 12/20/23 tabs cholestyramine-aspartame 4 gram 1 ea PO BID #60 ea 05/19/24 oral powder for susp in a packet (Prevalite) Results & Data (ED) Vital Signs Vital Signs - 24 hr 05/20/24 11:05 05/20/24 11:18 05/20/24 11:30 Temperature 36.5 C Temperature Source Oral Pulse Rate 61 61 Pulse Rate [Apical] Pulse Rate from SpO2 Sensor Pulse Rhythm Regular Respiratory Rate 18 18 Respiratory Effort / Characteristics Non-Labored Respiratory Depth Normal Respiratory Pattern Regular Blood Pressure 89/48 L 91/57 L Blood Pressure [Right Arm] Blood Pressure Mean 61 70 Blood Pressure Mean [Right Arm] Blood Pressure Position Blood Pressure Position [Right Arm] Pulse Oximetry 95 95 Oxygen Delivery Method Room Air Room Air Sepsis Recent Fever Within 48 Hours No Sepsis New/Unexplained Change in Mental Status N/A Sepsis Action Taken by Nursing No Action Required 05/20/24 11:57 05/20/24 12:07 05/20/24 12:12 Temperature Temperature Source Pulse Rate 63 63 60 Pulse Rate [Apical] Pulse Rate from SpO2 Sensor 62 60 Pulse Rhythm Respiratory Rate 20 17 Respiratory Effort / Characteristics Respiratory Depth Respiratory Pattern Blood Pressure Blood Pressure [Right Arm] Blood Pressure Mean Blood Pressure Mean [Right Arm] Blood Pressure Position Blood Pressure Position [Right Arm] Pulse Oximetry 95 96 Oxygen Delivery Method Sepsis Recent Fever Within 48 Hours Sepsis New/Unexplained Change in Mental Status Sepsis Action Taken by Nursing 05/20/24 12:36 05/20/24 12:57 05/20/24 13:12 Temperature Temperature Source Pulse Rate 69 60 61 Pulse Rate [Apical] Pulse Rate from SpO2 Sensor Pulse Rhythm Respiratory Rate 16 17 16 Respiratory Effort / Characteristics Respiratory Depth Respiratory Pattern Blood Pressure 121/70 117/65 122/72 Blood Pressure [Right Arm] Blood Pressure Mean 87 82 88 Blood Pressure Mean [Right Arm] Blood Pressure Position Blood Pressure Position [Right Arm] Pulse Oximetry Oxygen Delivery Method Sepsis Recent Fever Within 48 Hours Sepsis New/Unexplained Change in Mental Status Sepsis Action Taken by Nursing 05/20/24 13:45 05/20/24 16:07 05/20/24 17:00 Temperature Temperature Source Pulse Rate 61 Pulse Rate [Apical] 61 61 Pulse Rate from SpO2 Sensor Pulse Rhythm Respiratory Rate 14 13 Respiratory Effort / Characteristics Non-Labored Spontaneous Non-Labored Spontaneous Respiratory Depth Normal Normal Respiratory Pattern Blood Pressure Blood Pressure [Right Arm] 146/78 H 115/73 Blood Pressure Mean Blood Pressure Mean [Right Arm] 100 87 Blood Pressure Position Blood Pressure Position [Right Arm] Semi-fowlers Pulse Oximetry 96 94 Oxygen Delivery Method Room Air Room Air Sepsis Recent Fever Within 48 Hours Sepsis New/Unexplained Change in Mental Status Sepsis Action Taken by Nursing 05/20/24 17:38 05/20/24 17:58 05/20/24 18:13 Temperature 36.5 C 36.4 C L 36.5 C Temperature Source Oral Oral Oral Pulse Rate 60 65 61 Pulse Rate [Apical] Pulse Rate from SpO2 Sensor Pulse Rhythm Respiratory Rate 14 17 15 Respiratory Effort / Characteristics Respiratory Depth Respiratory Pattern Blood Pressure 146/79 H 126/93 154/79 H Blood Pressure [Right Arm] Blood Pressure Mean 101 104 104 Blood Pressure Mean [Right Arm] Blood Pressure Position Lying Semi-fowlers Blood Pressure Position [Right Arm] Pulse Oximetry 96 96 98 Oxygen Delivery Method Sepsis Recent Fever Within 48 Hours Sepsis New/Unexplained Change in Mental Status Sepsis Action Taken by Nursing 05/20/24 18:43 05/20/24 18:43 Temperature 36.5 C Temperature Source Oral Pulse Rate 56 L Pulse Rate [Apical] Pulse Rate from SpO2 Sensor Pulse Rhythm Respiratory Rate 16 Respiratory Effort / Characteristics Respiratory Depth Respiratory Pattern Blood Pressure 154/80 H Blood Pressure [Right Arm] Blood Pressure Mean 104 Blood Pressure Mean [Right Arm] Blood Pressure Position Blood Pressure Position [Right Arm] Pulse Oximetry 96 Oxygen Delivery Method Sepsis Recent Fever Within 48 Hours Sepsis New/Unexplained Change in Mental Status Sepsis Action Taken by Nursing Laboratory Data Attestation: I reviewed the patient's lab results. 05/20/24 14:48 05/20/24 11:25 Lab Results 05/20/24 05/20/24 05/20/24 Range/Units 11:25 12:50 13:05 WBC 5.83 (4.8-10.8) K/ul RBC 3.24 L (4.70-6.10) M/uL Hgb 8.5 L (14.0-18.0) g/dl Hct 26.9 L (42.0-52.0) % MCV 83.0 (80.0-100.0) fL MCH 26.2 (25.0-34.0) pg MCHC 31.6 L (32.0-36.0) g/dL RDW Std Deviation 54.6 H (36.4-46.3) fL RDW Coeff of Rito 18.3 H (11.5-14.5) % Plt Count 124 L (130-400) K/uL MPV 12.2 (9.4-12.4) fL Immature Gran % (Auto) 0.3 % Neut % (Auto) 64.3 % Lymph % (Auto) 20.6 % Bartow % (Auto) 7.4 % Eos % (Auto) 6.9 % Baso % (Auto) 0.5 % Reticulocyte % (Auto) 1.85 (0.50-2.00) % Neut # (Auto) 3.75 (1.40-6.50) K/uL Lymph # (Auto) 1.20 (1.20-3.40) K/uL Bartow # (Auto) 0.43 (0.11-0.59) K/uL Eos # (Auto) 0.40 (0.00-0.50) K/uL Baso # (Auto) 0.03 (0.00-0.20) K/uL Reticulocyte # 0.060 (0.020-0.100) 10^6/uL Immature Gran # (Auto) 0.02 (0.01-0.20) K/uL PT 13.5 H (9.0-12.0) Seconds INR 1.3 H (0.9-1.1) Sodium 135 L (136-145) mmol/L Potassium 4.1 (3.5-5.1) mmol/L Chloride 109 H (98-107) mmol/L Carbon Dioxide 21 (21-32) mmol/L Anion Gap 5 (3-11) BUN 38 H (6-23) mg/dl Creatinine 2.68 H (0.6-1.4) mg/dl Est Cr Clr Drug Dosing 27.8 ml/min eGFR 23.75 BUN/Creatinine Ratio 14.2 (10-20) Glucose 248 H (70-99(Fasting)) mg/dl POC Glucose (70-99) mg/dl Calcium 8.9 (8.6-10.3) mg/dl Phosphorus 2.3 L (2.5-4.9) mg/dl Magnesium 2.0 (1.7-2.4) mg/dl Iron 48 (35-175) mcg/dl TIBC 305 (250-450) mcg/dl Transferrin 218 (200-360) mg/dl Transferrin % Sat 16 L (20-50) % Ferritin 190.8 (8-388) ng/ml Total Bilirubin 2.9 H (0.2-1.0) mg/dl Direct Bilirubin 1.2 H (0-0.2) mg/dl AST 236 H (13-39) U/L ALT 100 H (7-52) U/L Alkaline Phosphatase 576 H (34-104) U/L Troponin I High Sens 44.6 H 40.8 H (0-20) pg/ml Total Protein 6.4 (6.0-8.3) gm/dl Albumin 3.1 L (3.4-5.0) gm/dl Globulin 3.3 (2.5-4.0) gm/dl Albumin/Globulin Ratio 0.9 (0.9-2) Lipase 41 (11-82) U/L Vitamin B12 636 (180-914) pg/ml Folate 9.92 (>5.38) ng/ml Procalcitonin 0.32 (0-0.5) ng/ml TSH 3.618 (0.300-4.500) uIu/ml Urine Color Urine Appearance (Clear) Urine pH (4.5-7.5) Ur Specific Deford (1.000-1.030) Urine Protein (Negative) Urine Glucose (UA) (Negative) Urine Ketones (Negative) Urine Blood (Negative) Urine Nitrite (Negative) Urine Bilirubin (Negative) Urine Urobilinogen (Negative) Ur Leukocyte Esterase (Negative) Urine WBC (Auto) (0-5) /hpf Urine RBC (Auto) (0-2) /hpf U Hyaline Cast (Auto) (0-2) /lpf U Epithel Cells (Auto) (0-2) /hpf Urine Bacteria (Auto) (None Seen) Amorphous Sediment (None Prsent) Adenovirus (PCR) Not Detected (NotDetected) B. pertussis DNA (PCR) Not Detected (NotDetected) B.parapertussis DNA PCR Not Detected (NotDetected) C. pneumoniae DNA (PCR) Not Detected (NotDetected) Coronavirus OC43 (PCR) Not Detected (NotDetected) Coronavirus HKU1 (PCR) Not Detected (NotDetected) Coronavirus 229E (PCR) Not Detected (NotDetected) SARS-CoV-2 (PCR) Not Detected (NotDetected) Coronavirus NL63 (PCR) Not Detected (NotDetected) Human Metapneumovir PCR Not Detected (NotDetected) Influenza A (H3) PCR DETECTED A (NotDetected) Influenza Type B (PCR) Not Detected (NotDetected) M. pneumoniae (PCR) Not Detected (NotDetected) Parainfluenza 1 (PCR) Not Detected (NotDetected) Parainfluenza 2 (PCR) Not Detected (NotDetected) Parainfluenza 3 (PCR) Not Detected (NotDetected) Parainfluenza 4 (PCR) Not Detected (NotDetected) RSV (PCR) Not Detected (NotDetected) Entero/Rhino (PCR) Not Detected (NotDetected) Blood Type Blood Type Recheck Antibody Screen Crossmatch 05/20/24 05/20/24 05/20/24 Range/Units 14:46 14:48 14:55 WBC (4.8-10.8) K/ul RBC (4.70-6.10) M/uL Hgb 7.8 L (14.0-18.0) g/dl Hct 24.7 L (42.0-52.0) % MCV (80.0-100.0) fL MCH (25.0-34.0) pg MCHC (32.0-36.0) g/dL RDW Std Deviation (36.4-46.3) fL RDW Coeff of Rito (11.5-14.5) % Plt Count (130-400) K/uL MPV (9.4-12.4) fL Immature Gran % (Auto) % Neut % (Auto) % Lymph % (Auto) % Bartow % (Auto) % Eos % (Auto) % Baso % (Auto) % Reticulocyte % (Auto) (0.50-2.00) % Neut # (Auto) (1.40-6.50) K/uL Lymph # (Auto) (1.20-3.40) K/uL Bartow # (Auto) (0.11-0.59) K/uL Eos # (Auto) (0.00-0.50) K/uL Baso # (Auto) (0.00-0.20) K/uL Reticulocyte # (0.020-0.100) 10^6/uL Immature Gran # (Auto) (0.01-0.20) K/uL PT (9.0-12.0) Seconds INR (0.9-1.1) Sodium (136-145) mmol/L Potassium (3.5-5.1) mmol/L Chloride (98-107) mmol/L Carbon Dioxide (21-32) mmol/L Anion Gap (3-11) BUN (6-23) mg/dl Creatinine (0.6-1.4) mg/dl Est Cr Clr Drug Dosing ml/min eGFR BUN/Creatinine Ratio (10-20) Glucose (70-99(Fasting)) mg/dl POC Glucose (70-99) mg/dl Calcium (8.6-10.3) mg/dl Phosphorus (2.5-4.9) mg/dl Magnesium (1.7-2.4) mg/dl Iron (35-175) mcg/dl TIBC (250-450) mcg/dl Transferrin (200-360) mg/dl Transferrin % Sat (20-50) % Ferritin (8-388) ng/ml Total Bilirubin (0.2-1.0) mg/dl Direct Bilirubin (0-0.2) mg/dl AST (13-39) U/L ALT (7-52) U/L Alkaline Phosphatase (34-104) U/L Troponin I High Sens (0-20) pg/ml Total Protein (6.0-8.3) gm/dl Albumin (3.4-5.0) gm/dl Globulin (2.5-4.0) gm/dl Albumin/Globulin Ratio (0.9-2) Lipase (11-82) U/L Vitamin B12 (180-914) pg/ml Folate (>5.38) ng/ml Procalcitonin (0-0.5) ng/ml TSH (0.300-4.500) uIu/ml Urine Color Yellow Urine Appearance Turbid A (Clear) Urine pH 5.5 (4.5-7.5) Ur Specific Deford 1.015 (1.000-1.030) Urine Protein 2+ H (Negative) Urine Glucose (UA) 1+ H (Negative) Urine Ketones Negative (Negative) Urine Blood 3+ H (Negative) Urine Nitrite Negative (Negative) Urine Bilirubin Negative (Negative) Urine Urobilinogen Negative (Negative) Ur Leukocyte Esterase Negative (Negative) Urine WBC (Auto) 0-5 (0-5) /hpf Urine RBC (Auto) >20 H (0-2) /hpf U Hyaline Cast (Auto) 0-2 (0-2) /lpf U Epithel Cells (Auto) 0-2 (0-2) /hpf Urine Bacteria (Auto) None Seen (None Seen) Amorphous Sediment Present A (None Prsent) Adenovirus (PCR) (NotDetected) B. pertussis DNA (PCR) (NotDetected) B.parapertussis DNA PCR (NotDetected) C. pneumoniae DNA (PCR) (NotDetected) Coronavirus OC43 (PCR) (NotDetected) Coronavirus HKU1 (PCR) (NotDetected) Coronavirus 229E (PCR) (NotDetected) SARS-CoV-2 (PCR) (NotDetected) Coronavirus NL63 (PCR) (NotDetected) Human Metapneumovir PCR (NotDetected) Influenza A (H3) PCR (NotDetected) Influenza Type B (PCR) (NotDetected) M. pneumoniae (PCR) (NotDetected) Parainfluenza 1 (PCR) (NotDetected) Parainfluenza 2 (PCR) (NotDetected) Parainfluenza 3 (PCR) (NotDetected) Parainfluenza 4 (PCR) (NotDetected) RSV (PCR) (NotDetected) Entero/Rhino (PCR) (NotDetected) Blood Type AB Positive Blood Type Recheck AB Positive Antibody Screen NEGATIVE Crossmatch See Detail 05/20/24 Range/Units 18:02 WBC (4.8-10.8) K/ul RBC (4.70-6.10) M/uL Hgb (14.0-18.0) g/dl Hct (42.0-52.0) % MCV (80.0-100.0) fL MCH (25.0-34.0) pg MCHC (32.0-36.0) g/dL RDW Std Deviation (36.4-46.3) fL RDW Coeff of Rito (11.5-14.5) % Plt Count (130-400) K/uL MPV (9.4-12.4) fL Immature Gran % (Auto) % Neut % (Auto) % Lymph % (Auto) % [place] % (Auto) % Eos % (Auto) % Baso % (Auto) % Reticulocyte % (Auto) (0.50-2.00) % Neut # (Auto) (1.40-6.50) K/uL Lymph # (Auto) (1.20-3.40) K/uL [place] # (Auto) (0.11-0.59) K/uL Eos # (Auto) (0.00-0.50) K/uL Baso # (Auto) (0.00-0.20) K/uL Reticulocyte # (0.020-0.100) 10^6/uL Immature Gran # (Auto) (0.01-0.20) K/uL PT (9.0-12.0) Seconds INR (0.9-1.1) Sodium (136-145) mmol/L Potassium (3.5-5.1) mmol/L Chloride (98-107) mmol/L Carbon Dioxide (21-32) mmol/L Anion Gap (3-11) BUN (6-23) mg/dl Creatinine (0.6-1.4) mg/dl Est Cr Clr Drug Dosing ml/min eGFR BUN/Creatinine Ratio (10-20) Glucose (70-99(Fasting)) mg/dl POC Glucose 199 H (70-99) mg/dl Calcium (8.6-10.3) mg/dl Phosphorus (2.5-4.9) mg/dl Magnesium (1.7-2.4) mg/dl Iron (35-175) mcg/dl TIBC (250-450) mcg/dl Transferrin (200-360) mg/dl Transferrin % Sat (20-50) % Ferritin (8-388) ng/ml Total Bilirubin (0.2-1.0) mg/dl Direct Bilirubin (0-0.2) mg/dl AST (13-39) U/L ALT (7-52) U/L Alkaline Phosphatase (34-104) U/L Troponin I High Sens (0-20) pg/ml Total Protein (6.0-8.3) gm/dl Albumin (3.4-5.0) gm/dl Globulin (2.5-4.0) gm/dl Albumin/Globulin Ratio (0.9-2) Lipase (11-82) U/L Vitamin B12 (180-914) pg/ml Folate (>5.38) ng/ml Procalcitonin (0-0.5) ng/ml TSH (0.300-4.500) uIu/ml Urine Color Urine Appearance (Clear) Urine pH (4.5-7.5) Ur Specific [place] (1.000-1.030) Urine Protein (Negative) Urine Glucose (UA) (Negative) Urine Ketones (Negative) Urine Blood (Negative) Urine Nitrite (Negative) Urine Bilirubin (Negative) Urine Urobilinogen (Negative) Ur Leukocyte Esterase (Negative) Urine WBC (Auto) (0-5) /hpf Urine RBC (Auto) (0-2) /hpf U Hyaline Cast (Auto) (0-2) /lpf U Epithel Cells (Auto) (0-2) /hpf Urine Bacteria (Auto) (None Seen) Amorphous Sediment (None Prsent) Adenovirus (PCR) (NotDetected) B. pertussis DNA (PCR) (NotDetected) B.parapertussis DNA PCR (NotDetected) C. pneumoniae DNA (PCR) (NotDetected) Coronavirus OC43 (PCR) (NotDetected) Coronavirus HKU1 (PCR) (NotDetected) Coronavirus 229E (PCR) (NotDetected) SARS-CoV-2 (PCR) (NotDetected) Coronavirus NL63 (PCR) (NotDetected) Human Metapneumovir PCR (NotDetected) Influenza A (H3) PCR (NotDetected) Influenza Type B (PCR) (NotDetected) M. pneumoniae (PCR) (NotDetected) Parainfluenza 1 (PCR) (NotDetected) Parainfluenza 2 (PCR) (NotDetected) Parainfluenza 3 (PCR) (NotDetected) Parainfluenza 4 (PCR) (NotDetected) RSV (PCR) (NotDetected) Entero/Rhino (PCR) (NotDetected) Blood Type Blood Type Recheck Antibody Screen Crossmatch Administered Medications Discontinued Medications Sodium Chloride (Nss) 1,000 mls @ 999 mls/hr IV .Q1H1M ONE Stop: 05/20/24 12:28 Last Infusion: 05/20/24 15:23 Dose: Infused Documented By: Admin: 05/20/24 12:56 Dose: 999 mls/hr Documented By: SANYA Imaging Data Radiologist's Impression: Chest X-Ray 05/20/24 11:28 XR chest 1V portable CLINICAL HISTORY: weakness COMPARISON STUDY: Chest CT May 28, 2021. Chest radiograph May 14, 2024. FINDINGS: Dual lead right subclavian pacer is unchanged in position. Cardiomegaly is unchanged. Mediastinal contours are stable. No evidence for pulmonary edema. No airspace opacities. No pneumothorax or pleural effusion. IMPRESSION: No acute cardiopulmonary findings. No change in appearance of the chest. ACT 112: Negative or not required by law. Electronically signed by: Lane Mcgovern M.D. 05/20/2024 12:[address] 05/20/24 11:30 CT OF THE CERVICAL SPINE WITHOUT CONTRAST CLINICAL HISTORY: fall COMPARISON STUDY: Cervical spine CT May 28, 2021. TECHNIQUE: Helical axial images of the cervical spine were obtained without IV contrast. Sagittal and coronal reconstructions were viewed. Automated exposure control was utilized for the study. A dose lowering technique was utilized adhering to the principles of ALARA. FINDINGS: Alignment of the cervical spine is anatomic. Vertebral body heights are maintained. No acute cervical spine fracture or subluxation is present. There is no prevertebral edema. Facet joints are intact. Evaluation of the lower cervical spine is mildly compromised by artifact. There is moderate multilevel disc space narrowing and facet arthrosis within the cervical spine. IMPRESSION: No acute cervical spine fracture or subluxation. ACT 112: Negative or not required by law. Electronically signed by: Lane Mcgovern M.D. 05/20/2024 12:[address] 05/20/24 11:30 CT OF THE HEAD WITHOUT CONTRAST CLINICAL HISTORY: fall COMPARISON STUDY: Head CT May 14, 2024. TECHNIQUE: Helical axial images of the head were obtained without IV contrast. Automated exposure control was utilized for the study. A dose lowering technique was utilized adhering to the principles of ALARA. FINDINGS: No acute intracranial hemorrhage, midline shift or mass effect is present. The ventricular system is stable. 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 There are old infarct within the bilateral basal ganglia. The appearance of the brain is unchanged. Bilateral mastoid air cells are partially opacified. This is also unchanged. There are no calvarial fracture IMPRESSION: 1. No acute intracranial findings. No change in appearance of the brain. 2. No calvarial fractures. ACT 112: Negative or not required by law. Electronically signed by: Lane Mcgovern M.D. 05/20/2024 12:32 PM Forearm X-Ray 05/20/24 15:41 EXAM: XR forearm LT 2V CLINICAL HISTORY: fall, hematoma TECHNIQUE: X-ray images of the left forearm were obtained in anteroposterior (AP) and lateral projections. COMPARISON: No prior studies are available for comparison. FINDINGS: Bone Structure: The bone structure is normal and aligned. No evidence of fracture or dislocation. Radius and ulna are intact without any osseous lesions or abnormalities. Joint Spaces: subtle elevation of the anterior pad of fat suggestive of elbow joint effusion 1st [facility] osteoarthritic changes Soft Tissues: possible soft tissue swelling at the anterior aspect of the elbow joint IMPRESSION: 1. Subtle elevation of the anterior pad of fat suggestive of mild elbow joint effusion, further assessment by CT is recommended if clinically indicated to detect any occult fracture if clinically warranted. 2. Possible soft tissue swelling at the anterior aspect of the elbow joint. Disclaimer: A subtle bone abnormality or fracture may not be readily apparent on X-rays, thus clinical correlation and further imaging, including follow-up CT, MRI, or follow-up X-rays, are advised as needed. Electronically signed by Leni Rivera 05-20-2024 5:42 PM Humerus X-Ray 05/20/24 15:41 EXAM: XR humerus LT 2V CLINICAL HISTORY: fall, hematoma TECHNIQUE: X-ray images of the left humerus were obtained in anteroposterior (AP) and lateral projections. COMPARISON: No prior studies available for comparison. FINDINGS: Bone Structure: Bone structure is normal and aligned. No evidence of fracture or dislocation. Humerus is intact without any osseous lesions or abnormalities. Soft Tissues: Soft tissue edema noted around the arm Small focus of calcification noted related to greater trochanter suggesting calcific tendinopathy joints: AC joint mild osteoarthritic changes IMPRESSION: 1. No evidence of acute fracture, dislocation. 2. Soft tissue edema noted around the arm. 3. Small focus of calcification noted related to greater trochanter suggesting calcific tendinopathy. Disclaimer: A subtle bone abnormality or fracture may not be readily apparent on X-rays, thus clinical correlation and further imaging, including follow-up CT, MRI, or follow-up X-rays, are advised as needed. Electronically signed by Leni Rivera 05-20-2024 5:19 PM Abdomen/Pelvis CT 05/20/24 15:50 EXAMINATION: CT of the abdomen and pelvis performed without contrast TECHNIQUE: Helical CT images from the lung bases through the symphysis pubis were obtained without contrast. Coronal and sagittal reformatted images were generated at a workstation for further assessment. Dose reduction techniques were achieved by using automatic exposure control and/or adjustment of mA and/or kV according to patient size and/or use of iterative reconstruction technique. COMPARISON: May 12, 2024 HISTORY: Abdominal pain FINDINGS: Lower chest: No consolidation. No pleural effusion or pneumothorax. Liver: No suspicious liver lesions. Gallbladder: Close ectomy. Spleen: Normal size. Pancreas: No suspicious pancreatic lesions. The pancreatic duct is not dilated. Adrenal glands: No adrenal nodules. Kidneys: No hydronephrosis or obstructing renal stones. Bladder / Pelvic organs: Unremarkable. Bowel: No bowel obstruction. No abnormal bowel wall thickening. The appendix is unremarkable. Lymph nodes: No retroperitoneal, mesenteric, or pelvic lymphadenopathy. Peritoneum / Retroperitoneum: No free fluid or air within the abdomen. Vessels: No infrarenal aortic aneurysm. Heavy arterial sclerosis diffusely. Bones and soft tissues: No suspicious lesion in the bones. There is a prominent fat-containing umbilical hernia. Subcutaneous inflammatory fat stranding and skin thickening of the lower abdominal wall pannus which may be seen with cellulitis. Severe discogenic degenerative change again seen at L4-5 and L5-S1. IMPRESSION: No acute finding in the abdomen or pelvis. Findings consistent with cellulitis of the lower abdominal wall pannus. Arteriosclerosis. Prominent fatty umbilical hernia. Electronically signed by River Bailey 05-20-2024 4:50 PM Discharge Plan Visit Data Chief Complaint: Weakness Stated Complaint: BLEEDING FROM EAR, WEAKNESS ED Provider: Bill Brambila Discharge Problem: Anemia, Generalized weakness, Elevated LFTs, Hematoma of left forearm, Hematuria Forms Stand Alone Forms: My [facility] Prescriptions Prescriptions: No Action (DME) FreeStyle Maisha 2 Sensor Kit See Rx Instructions .Route Qty: 2 11RF Rx Instructions: Change every 14 days pantoprazole 40 mg tablet,delayed release (DR/EC) 40 mg PO QAM nitroglycerin 0.4 mg tablet, sublingual 0.4 mg sublingual Q5M PRN (Reason: Chest Pain) Rx Instructions: do not exceed 3 doses per episode ondansetron 4 mg tablet,disintegrating 4 mg PO Q8H PRN (Reason: Nausea And Vomiting) (DME) sharps bin-insulin syrin-needl 1 mL 30 gauge x 5/16" syringe See Dose Instructions .ROUTE .MEDSUPPLY Qty: 1 Rx Instructions: As directed (DME) lancets [OneTouch Delica Plus Lancet] 30 gauge misc See Rx Instructions .ROUTE .MEDSUPPLY Rx Instructions: Test blood sugar once daily PRN (DME) FreeStyle Maisha 2 Godfrey Misc See Rx Instructions .Route Rx Instructions: As directed Eliquis 5 mg tablet 5 mg PO BID Qty: 180 1RF Rx Instructions: 5 mg po BID (DME) pen needle, diabetic [BD Ultra-Fine Micro Pen Needle] 32 gauge x 1/4" needle See Rx Instructions .Route Qty: 100 3RF Rx Instructions: use twice daily aspirin 81 mg Tablet,Delayed Release (Dr/Ec) 81 mg PO QAM Jardiance 25 mg tablet 25 mg PO UD Hold Instructions: Provider's Order due to renal failure. will defer to PCP as to when to resume Rx Instructions: Suspended through 06/03/24. Original Directions: 25mg by mouth in the morning Mounjaro 5 mg/0.5 mL pen injector 5 mg SUBCUT UD Hold Instructions: Provider's Order holding due to hepatitis Rx Instructions: Currently on hold/suspended through 06/03/24. Original Directions: 5mg once weekly on Wed amlodipine [Norvasc] 5 mg Tablet 5 mg PO QAM Qty: 30 2RF sennosides [Senokot] 8.6 mg Tablet 17.2 mg PO QAM Qty: 60 2RF metoprolol succinate 50 mg tablet extended release 24 hr 50 mg PO BID Qty: 60 2RF insulin lispro [Admelog SoloStar U-100 Insulin] 100 unit/mL insulin pen 1 sliding scale dose subcut USEASDIRECTD Qty: 0 0RF Rx Instructions: SS before meals and at Bedtime: 151-200=4 units; 201-250=6 units; 251- 300=10 units; 301-350 = 12 units; 351-400= 15 units; 401 or greater give 15 units and call physician. Ear Wax Removal Drops 6.5 % Drops 5 - 10 drp OTIC (EAR) BID atorvastatin 80 mg tablet 80 mg PO HS potassium chloride 10 mEq tablet extended release 10 meq PO QAM calcitriol 0.5 mcg capsule 0.5 mcg PO QAM gabapentin 300 mg capsule 300 mg PO HS furosemide 20 mg tablet 10 mg PO QAM sertraline 50 mg tablet 75 mg PO QAM terazosin 10 mg capsule 10 mg PO QAM Rx Instructions: TAKE 1 CAPSULE DAILY levothyroxine 112 mcg capsule 112 mcg PO QAM insulin degludec [Tresiba FlexTouch U-100] 100 unit/mL (3 mL) insulin pen 0 unit subcut QAM Hold Instructions: Provider's Order Blood sugars are controlled. will hold until blood sugars rise. may need a lower dose. Rx Instructions: Currently on hold/suspended through 06/03/24. Original Directions: 40units subcut every morning magnesium oxide 400 mg magnesium tablet 400 mg PO QAM losartan 50 mg tablet 50 mg PO QAM polyethylene glycol 3350 [ClearLax] 17 gram Powder In Packet 17 g PO QAM [id number] 1.75 mg-10,000 unit-0.025mg/mL drops See Rx Instructions .ROUTE .COMPLEX Rx Instructions: Instill 2 drops into affected ear TID cholestyramine-aspartame [Prevalite] 4 gram Powder In Packet 1 ea PO BID Qty: 60 0RF Referrals Referrals: Alek Vera DO [Primary Care Provider] - Discharge Problem: Anemia Qualifiers: Anemia type: unspecified type Qualified Code(s): D64.9 - Anemia, unspecified Hematuria Qualifiers: Hematuria type: unspecified type Qualified Code(s): R31.9 - Hematuria, unspecified
[2024-05-20 12:00] LABS: Basophils # (auto) 0.03 K/uL (0.00-0.20); Basophils % (auto) 0.5 %; Eosinophils % (auto) 6.9 %; Hematocrit (blood only) 26.9 % (42.0-52.0); Hemoglobin 8.5 g/dl (14.0-18.0); Immature Granulocytes # (auto) 0.02 K/uL (0.01-0.20); Immature Granulocytes % (auto) 0.3 %; Lymphocytes % (auto) 20.6 %; Mean Corpuscular Hemoglobin 26.2 pg (25.0-34.0); Mean Corpuscular Hgb Conc 31.6 g/dL (32.0-36.0); Mean Platelet Volume 12.2 fL (9.4-12.4); Monocytes # (auto) 0.43 K/uL (0.11-0.59); Monocytes % (auto) 7.4 %; Neutrophils # (auto) 3.75 K/uL (1.40-6.50); Neutrophils % (auto) 64.3 %; Platelet Count 124 K/uL (130-400); RDW Coefficient of Variation 18.3 % (11.5-14.5); RDW Standard Deviation 54.6 fL (36.4-46.3); Red Blood Count 3.24 M/uL (4.70-6.10); White Blood Count 5.83 K/ul (4.8-10.8)
[2024-05-20 12:13] LABS: Albumin Globulin Ratio 0.9 (0.9-2); Albumin Level 3.1 gm/dl (3.4-5.0); BUN Creatinine Ratio 14.2 (10-20); Bilirubin Direct 1.2 mg/dl (0-0.2); Bilirubin,Total 2.9 mg/dl (0.2-1.0); Calcium 8.9 mg/dl (8.6-10.3); Creatinine Clr Calc Pharmacy 27.8 ml/min; Globulin 3.3 gm/dl (2.5-4.0); Phosphorus 2.3 mg/dl (2.5-4.9); Potassium 4.1 mmol/L (3.5-5.1); Total Protein 6.4 gm/dl (6.0-8.3)
[2024-05-20 12:18] LABS: Troponin I High Sensitivity 44.6 pg/ml (0-20)
--- NOTE | 2024-05-20 12:21 | XRay Report ---
XR chest 1V portable CLINICAL HISTORY: weakness COMPARISON STUDY: Chest CT May 28, 2021. Chest radiograph May 14, 2024. FINDINGS: Dual lead right subclavian pacer is unchanged in position. Cardiomegaly is unchanged. Media stinal contours are stable. No evidence for pulmonary edema. No airspace opacities. No pneumothorax o r pleural effusion. IMPRESSION: No acute cardiopulmonary findings. No change in appearance of the chest. ACT 112: Negative or not required by law. Electronically signed by: Lane Mcgovern M.D. 05/20/2024 12:20 PM
[2024-05-20 12:27] LABS: Thyroid Stimulating Hormone 3.618 uIu/ml (0.300-4.500)
[2024-05-20 12:28] LABS: INR 1.3 (0.9-1.1); Prothrombin Time 13.5 Seconds (9.0-12.0)
--- NOTE | 2024-05-20 12:34 | CT Scan Report ---
CT OF THE HEAD WITHOUT CONTRAST CLINICAL HISTORY: fall COMPARISON STUDY: Head CT May 14, 2024. TECHNIQUE: Helical axial images of the head were obtained without IV contrast. Automated exposure con trol was utilized for the study. A dose lowering technique was utilized adhering to the principles o f ALARA. FINDINGS: No acute intracranial hemorrhage, midline shift or mass effect is present. The ventricular system is stable. 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 There are old infarct within the bilateral basal ganglia. The appearance of the brain is unchanged. Bilateral mastoid air cells are partially opacified. This is also unchanged. There are no calvarial fracture IMPRESSION: 1. No acute intracranial findings. No change in appearance of the brain. 2. No calvarial fractures. ACT 112: Negative or not required by law. Electronically signed by: Lane Mcgovern M.D. 05/20/2024 12:32 PM
--- NOTE | 2024-05-20 12:35 | CT Scan Report ---
CT OF THE CERVICAL SPINE WITHOUT CONTRAST CLINICAL HISTORY: fall COMPARISON STUDY: Cervical spine CT May 28, 2021. TECHNIQUE: Helical axial images of the cervical spine were obtained without IV contrast. Sagittal a nd coronal reconstructions were viewed. Automated exposure control was utilized for the study. A do se lowering technique was utilized adhering to the principles of ALARA. FINDINGS: Alignment of the cervical spine is anatomic. Vertebral body heights are maintained. No acut e cervical spine fracture or subluxation is present. There is no prevertebral edema. Facet joints are intact. Evaluation of the lower cervical spine is mildly compromised by artifact. There is moderate multilevel disc space narrowing and facet arthrosis within the cervical spine. IMPRESSION: No acute cervical spine fracture or subluxation. ACT 112: Negative or not required by law. Electronically signed by: Lane Mcgovern M.D. 05/20/2024 12:33 PM
[2024-05-20] MEDS: SODIUM CHLORIDE 0.9% 1,000 ML IV ONE (12:56)
[2024-05-20 13:50] LABS: Adenovirus PCR Not Detected (NotDetected); Bordetella parapertussis PCR Not Detected (NotDetected); Bordetella pertussis PCR Not Detected (NotDetected); Chlamydia pneumoniae PCR Not Detected (NotDetected); Coronavirus 229E PCR Not Detected (NotDetected); Coronavirus CoV-2 (COVID19)PCR Not Detected (NotDetected); Coronavirus HKU1 PCR Not Detected (NotDetected); Coronavirus NL63 PCR Not Detected (NotDetected); Coronavirus OC43PCR Not Detected (NotDetected); Human Metapneumovirus PCR Not Detected (NotDetected); Influenza A (H3) PCR DETECTED (NotDetected); Influenza B PCR Not Detected (NotDetected); Mycoplasma pneumoniae PCR Not Detected (NotDetected); Parainfluenza Virus 1 PCR Not Detected (NotDetected); Parainfluenza Virus 2 PCR Not Detected (NotDetected); Parainfluenza Virus 3 PCR Not Detected (NotDetected); Parainfluenza Virus 4 PCR Not Detected (NotDetected); Respiratory Syncytial VirusPCR Not Detected (NotDetected); Rhinovirus/Enterovirus PCR Not Detected (NotDetected)
[2024-05-20 14:28] LABS: Reticulocyte % 1.85 % (0.50-2.00)
--- NOTE | 2024-05-20 14:31 | History & Physical Report ---
Date of Service May 20, 2024 Assessment & Plan (1) Anemia: Plan: Gerry is a 79-year-old male with past medical history of PE, type II DM with labile blood sugars, CHF, chronic anemia, neuropathy, and history of cholecystectomy with recent hospital admission and discharged 05/19 after being found to have suspected new pancreatic cancer, influenza, and an acute versus subacute DVT. He presents back after he felt tired and weak and slid to the floor at his facility overnight. Did not have a "fall "did not strike his head or have any injury. Per facility and patient does have some bleeding from a polyp in his ear which she was picking at with a fingernail otherwise denies bleeding. No melena/hematochezia but does have a downtrending hemoglobin from prior. BUN is stable from prior measurements. Anemia, suspect from left upper extremity hematoma with additional underlying iron deficiency anemia Some bleeding from his ear where he picked at a polyp. No bleeding at time of hospitalist assessment Left upper extremity extending from the anterior proximal arm down through the distal forearm with ecchymosis and hematoma. Patient reports this formed around 2 days ago is no longer spreading but has been darkening in color. Letter Of Credit Document Examiner strength is intact, neurovascularly intact at bedside. Cap refill intact Hemoglobin slow downtrend borderline microcytic - 8.5 from 10.9 last 05/17/2024. Repeat hemoglobin pending. Will hold anticoagulation for 24 hours pending stability. Patient does have a history of DVT/PE, DVT as noted below was reviewed and is felt to be chronic. As there is not an acute component to this is reasonable to hold anticoagulation for 24 hours however if worsening or acute DVT develops and he cannot be anticoagulated would need to be evaluated for a filter at that time No evidence of GI bleeding and BUN is not elevated from baseline Transferrin saturation 16%, low. Ferritin pending although may be artificially elevated as a phase reactant in the setting of flu. TIBC/transferrin are normal. MCV borderline low. Transfusing blood for slight downtrending hemoglobin. Would benefit from iron transfusions once stable Left arm wrapped Fall - Initially patient reported that he some to the ground did not fall however on assessment does have a left hematoma over the occiput, left forearm and left upper arm hematoma and hematuria. Reported that his left arm hematoma has been present for a few days however per ER provider this does appear new/worse than on initial survey. X-rays of the left upper extremities. Hematuria is present, CT of the abdomen ordered, Noncon due to clearance less than 30/CKD. CTA/P: No acute finding of the abdomen or pelvis, no evidence of solid organ injury. Some stranding suspicious for lower abdominal wall pannus cellulitis. On clinical exam this does not correlate with any warmth, tenderness, erythema, or pain. Does have a slight contusion without signs of infection and does not have leukocytosis. Antibiotics deferred. Chronic right lower extremity DVT history of extensive bilateral PE Venous Doppler 05/14/2024 initially read as acute/subacute partial occlusive thrombus. Per review with radiology and as documented in prior discharge summary on review this is chronic without acute process/component and patient was continued on Eliquis at that time Past history of extensive bilateral PE 11/2021. No saddle or heart strain at that time. Anticoagulation management as above HFpEF, past history of CAD s/p PCI HFpEF, past history of PCI TTE 09/2023: EF 55-59%. Mild RV dilation.Checks x- ray without evidence of acute cardiopulmonary findings. No evidence of pulmonary edema/acute CHF on admission. He is saturating normally on room air Troponin minimally elevated suspect demand, no chest pain. EKG paced Aspirin is continued for stent protection given history of PCI. Eliquis has been held. Patient influenza A Completed Tamiflu course 05/19/2024 Supportive care No evidence of superimposed pneumonia Does still have some occasional wheezing and nonproductive cough but reports this is nearly resolved Type II DM Home medications held Continue basal bolus insulin, goal BSG [id number]. A1c deferred likely be unreliable in the setting of anemia Weakness Multifactorial due to flu and anemia PT/OT Denies true fall prior to admission. CTC-spine without acute findings, abdomen is nontender and benign without signs of contusion or injury. CKD Baseline creatinine 2.3-2.4 Creatinine on admission 2.68 Elevated slightly volume contracted and with anemia Blood pressure normalized following NSS 1 L. Hold nephrotoxins, trend BMP daily Chronic stable issues: Hypothyroidism: Continue Synthroid GERD: PPI continued. No clinical GI bleeding however if this does develop or BUN up trends and switch to twice daily IV dosing and consult GI for further evaluation. Patient is pending outpatient EUS for further evaluation of suspected pancreatic cancer DVT prophylaxis: Anticoagulation management as otherwise noted in HPI CODE STATUS: DNR/DNI Diet: Type II DM/heart healthy Disposition: PCU (2) Background diabetic retinopathy associated with type 2 diabetes mellitus: (3) CHF (congestive heart failure): (4) Diabetes type 2, uncontrolled: (5) DVT (deep venous thrombosis): (6) Diabetic peripheral neuropathy associated with type 2 diabetes mellitus: (7) Hypothyroidism: History of Present Illness Primary Care Provider: Alek Vera DO Gerry is a 79-year-old male with past medical history of PE, type II DM with labile blood sugars, CHF, chronic anemia, neuropathy, and history of cholecystectomy with recent hospital admission and discharged 05/19 after being found to have suspected new pancreatic cancer, influenza, and an acute versus subacute DVT. He presents back after he felt tired and weak and slid to the floor at his facility overnight. Did not have a "fall "did not strike his head or have any injury. Per facility and patient does have some bleeding from a polyp in his ear which she was picking at with a fingernail otherwise denies bleeding. No melena/hematochezia but does have a downtrending hemoglobin from prior. BUN is stable from prior measurements. Gerry seen at the bedside. He reports that he is felt more fatigued lightheaded and tired for a few days. Does not currently have any pain and is not lightheaded in bed but is more fatigued when he tries to move around. He reports he has not had any abdominal pain, nausea, vomiting, melena, or hematochezia. He does have a hematoma on his left arm which developed over the last few days in the hospital. He does not think that this is expanding, but has darkened and has changed in color over the last day or 2. Denies fever chills or sweats. No chest pain or chest pressure. He reports his flu symptoms are improved, he has a little bit of a dry cough and occasional wheezing but overall greatly improved and has not had any worsening shortness of breath. he reports last night he just felt tired and slid to the ground but did not actually strike his head or have an injury. He is anticoagulated for recent DVT. He reports he is pending a workup for potential pancreatic cancer, and is interested in all treatments available for him at this time. Additionally discussed his past history of PE and DVT and bleeding. He reports that he is not able to be on a blood thinner would want to be considered for a IVC filter especially if PE was likely to significantly worsen his quality of life and or length of life. He reports he has not had an IVC filter before. He reports he does not have any change/new swelling in his lower extremities or calf pain. No Denies hematuria, dysuria, polyuria. Reports he has been tired and eating and drinking a little bit less today He reports he would like to pursue all treatments available for his current conditions however if he were to become so ill that his heart or breathing stopped completely (he would not code) he would not want CPR/intubation/ventilation to try to bring him back. Confirms DNR/DNI status. Medical History: Reviewed Medications: Reviewed Surgical History: Reviewed Family history: Reviewed Allergies: Reviewed Social History: Reviewed Code Status: DNR/DNI Allergies Allergy/AdvReac Type Severity Reaction Status Date / Time cefaclor AdvReac Intermediate RASH Verified 05/14/24 14:48 oxycodone AdvReac Intermediate "I GET ALL Verified 05/14/24 14:48 GOOFY" Home Medications Medication Instructions Recorded Confirmed Type sharps container-insulin syringe ##1 10/05/18 01/12/24 History and needle 1 mL 30 gauge x 5/16" aspirin 81 mg tablet,delayed 81 mg PO QAM 05/28/21 05/20/24 History release flash glucose scanning reader 07/04/21 01/12/24 History (FreeStyle Maisha 2 [place]) lancets 30 gauge (OneTouch Delica 07/04/21 01/12/24 History Plus Lancet) flash glucose sensor (FreeStyle #2 ea 07/09/21 01/12/24 Rx Maisha 2 Sensor kit) pen needle, diabetic 32 gauge x #100 ea 05/27/22 01/12/24 Rx 1/4" (BD Ultra-Fine Micro Pen Needle) apixaban 5 mg tablet (Eliquis) 5 mg PO BID #180 tabs 04/28/23 05/20/24 Rx nitroglycerin 0.4 mg sublingual 0.4 mg sublingual Q5M PRN Chest 11/11/23 05/20/24 History tablet Pain ondansetron 4 mg disintegrating 4 mg PO Q8H PRN Nausea And Vomiting 11/11/23 05/20/24 History tablet pantoprazole 40 mg tablet,delayed 40 mg PO QAM 11/11/23 05/20/24 History release empagliflozin 25 mg tablet 25 mg PO UD 12/11/23 05/20/24 History (Jardiance) tirzepatide 5 mg/0.5 mL 5 mg subcut UD 12/11/23 05/20/24 History subcutaneous pen injector (Keyla) amlodipine 5 mg tablet (Norvasc) 5 mg PO QAM #30 tabs 12/20/23 05/20/24 Rx insulin lispro 100 unit/mL 1 sliding scale dose subcut 12/20/23 05/20/24 Rx subcutaneous pen (Admelog SoloStar USEASDIRECTD #0 mL U-) metoprolol succinate 50 mg 50 mg PO BID #60 tabs 12/20/23 05/20/24 Rx tablet,extended release 24 hr sennosides 8.6 mg tablet (Senokot) 17.2 mg (2 x 8.6 mg) PO QAM #60 12/20/23 05/20/24 Rx tabs atorvastatin 80 mg tablet 80 mg PO 05/09/24 05/20/24 History calcitriol 0.5 mcg capsule 0.5 mcg PO QAM 05/09/24 05/20/24 History carbamide peroxide 6.5 % ear drops 5 - 10 drp otic (ear) BID 05/09/24 05/20/24 History (Ear Wax Removal Drops) furosemide 20 mg tablet 10 mg PO QAM 05/09/24 05/20/24 History gabapentin 300 mg capsule 300 mg PO 05/09/24 05/20/24 History insulin degludec 100 unit/mL (3 0 unit subcut QA 05/09/24 05/20/24 History mL) subcutaneous pen (Tresiba FlexTouch U-100 insulin) levothyroxine 112 mcg capsule 112 mcg PO QAM 05/09/24 05/20/24 History magnesium oxide 400 mg PO QAM 05/09/24 05/20/24 History potassium chloride 10 mEq 10 meq PO QAM 05/09/24 05/20/24 History tablet,extended release sertraline 50 mg tablet 75 mg PO QAM 05/09/24 05/20/24 History terazosin 10 mg capsule 10 mg PO QAM 05/09/24 05/20/24 History losartan 50 mg tablet 50 mg PO QAM 05/14/24 05/20/24 History neomycin 1.75 mg-polymyxin 10,000 See Rx Instructions .Route .COMPLEX 05/14/24 05/20/24 History unit-gramicidin 0.025mg/mL eye drops polyethylene glycol 3350 17 gram 17 g PO QAM 05/14/24 05/20/24 History oral powder packet (ClearLax) cholestyramine-aspartame 4 gram 1 ea PO BID #60 ea 05/19/24 05/20/24 Rx oral powder for susp in a packet (Prevalite) Past Med/Surg History Problem List Biliary obstruction DVT (deep venous thrombosis) Swelling of right lower extremity (Acute) Elevated LFTs (Acute) Influenza (Acute) Generalized weakness (Acute) Abnormal LFTs (Acute) Jaundice (Acute) History of DVT (deep vein thrombosis) Acute metabolic encephalopathy Scalp abscess (Acute) Cellulitis of scalp (Acute) Right otitis media Finger pain, left Encounter for screening colonoscopy Toe injury Traumatic loss of toenail of right great toe Vitamin D deficiency Bilateral pulmonary embolism Lumbar back pain with radiculopathy affecting left lower extremity Albuminuria Hypertension Diabetes type 2, uncontrolled Pulmonary nodule Sleep apnea (Chronic) Secondary hyperparathyroidism (Chronic) Morbid obesity (Chronic) Lumbar spinal stenosis (Chronic) Hypothyroidism (Chronic) Dyslipidemia (Chronic) Dysesthesia (Chronic) Diabetic peripheral 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) Depression (Chronic) Chronic reflux esophagitis (Chronic) Cardiac pacemaker (Chronic) CHF (congestive heart failure) (Chronic) Arteriosclerotic cardiovascular disease (Chronic) Anemia (Chronic) Background diabetic retinopathy associated with type 2 diabetes mellitus Hypomagnesemia Chronic anemia (Acute) Medical History Chronic kidney disease, stage III (moderate) Acute respiratory failure JUANPABLO (acute kidney injury) Colon polyps Elevated transaminase level Hematuria Tinea pedis of both feet Vitamin D deficiency Surgical History History of incision and drainage (12/15/23) Incision and Drainage of Scalp Abscess x 2(Not Applicable) - Sarbjit Bai DO History of colonoscopy History of tonsillectomy History of mandibular surgery History of cholecystectomy History of coronary artery stent placement History of cardiac cath History of cataract surgery Family History Father Lung cancer Brother Lung disease Lung cancer Denies family history of Ovarian cancer Prostate cancer Myocardial infarction Breast cancer Colorectal cancer Social History Smoking Status: Never smoker Age Started Using Tobacco: 20; Age Quit Using Tobacco: 21; Second Hand Exposure: Yes; Hx Alcohol Use: No Hx Substance Use: No Preferred Language: [place] Communication Ability: Effective Visual Impairment: No Limitations Hearing Ability: Use of Hearing Aid Bottle Feeder Required: No Beliefs That Will Affect Care: None marital status: / Current Living Situation: Personal Care Facility current occupational status: retired 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 NAD. Cooperative. HEENT: Vision/hearing intact. Left ear also but with nontender contusion, no crepitus. Right ear with small amount of scabbed blood overlying the helix. Left ear is clear Pulm: CTAB A&P. -wheezes, -rales, -rhonchi. Symmetrical chest rise. No increased work of breathing. No respiratory distress. Cardiac: RRR, -mrg. Radial pulses intact and symmetrical. Abdominal: Obese, softly distended but nontender in all quadrants without rebound/guarding Extremities: Right upper extremity: Right anterior mid forearm with small contusion with underlying firmness? Less than 2 cm hematoma. Left upper extremity: Diffuse hematoma extending from proximal anterior upper extremity through the distal forearm. Strength 5/5, sensation to soft touch is intact in fingertips without deficit. Radial pulse is intact. No evidence of neurovascular compromise. Results & Data Results & Data Vital Signs (Past 12 Hours) Vital Signs Temp Pulse Pulse Resp BP BP Pulse Ox 05/20/24 13:45 61 14 146/78 H 96 05/20/24 13:12 61 16 122/72 05/20/24 12:57 60 17 117/65 05/20/24 12:36 69 16 121/70 05/20/24 12:12 60 17 96 05/20/24 12:07 63 05/20/24 11:57 63 20 95 05/20/24 11:30 91/57 L 05/20/24 11:18 61 18 95 05/20/24 11:05 36.5 C 61 18 89/48 L 95 O2 Del Method 05/20/24 13:45 Room Air 05/20/24 13:12 05/20/24 12:57 05/20/24 12:36 05/20/24 12:12 05/20/24 12:07 05/20/24 11:57 05/20/24 11:30 05/20/24 11:18 Room Air 05/20/24 11:05 Room Air PG Care Time/CCT Total # of Minutes Spent Total Time Spent with Patient: Total time spent is greater than 50% in coordination of care (as documented) at patient's floor/unit and/or counseling patient: Coding Level of Care Code 60058 INT INP/OBS CARE 375MIN Diagnoses Anemia D64.9 Background diabetic retinopathy associated with type 2 diabetes mellitus E11.3299 CHF (congestive heart failure) I50.9 Uncontrolled type 2 diabetes mellitus with hypoglycemia without coma E11.649 Coma presence: without coma Glycemic state: with hypoglycemia DVT (deep venous thrombosis) I82.409 Diabetic peripheral neuropathy associated with type 2 diabetes mellitus E11.42 Hypothyroidism, unspecified type E03.9 Hypothyroidism type: unspecified (4) Diabetes type 2, uncontrolled Coma presence: without coma Glycemic state: with hypoglycemia Qualified Code(s): E11.649 - Type 2 diabetes mellitus with hypoglycemia without coma (7) Hypothyroidism Hypothyroidism type: unspecified Qualified Code(s): E03.9 - Hypothyroidism, unspecified
[2024-05-20 15:00] LABS: Ferritin 190.8 ng/ml (8-388)
[2024-05-20 15:20] LABS: Hematocrit (blood only) 24.7 % (42.0-52.0); Hemoglobin 7.8 g/dl (14.0-18.0)
[2024-05-20 15:24] LABS: Amorphous Sediment Urine Present (None Prsent); Appearance Urine Turbid (Clear); Bacteria Urine Automated None Seen (None Seen); Bilirubin Urine Negative (Negative); Blood Urine 3+ (Negative); Cast Urine Automated 0-2 /lpf (0-2); Color Urine Yellow; Epithelial Cell Urine Auto 0-2 /hpf (0-2); Glucose Urine UA 1+ (Negative); Ketones Urine Negative (Negative); Leukocyte Esterase Urine Negative (Negative); Nitrite Urine Negative (Negative); Protein Urine 2+ (Negative); RBC Urine Automated >20 /hpf (0-2); Specific Gravity Urine 1.015 (1.000-1.030); Urobilinogen Urine Negative (Negative); WBC Urine Automated 0-5 /hpf (0-5); pH Urine 5.5 (4.5-7.5)
[2024-05-20] MEDS ORDERED: SODIUM CHLORIDE 0.9% 50 ML IV PRN (15:27)
[2024-05-20] MEDS ORDERED: SODIUM CHLORIDE 0.9% 100 ML IV PRN (15:27)
[2024-05-20] MEDS ORDERED: PHARMACY GLYCEMIC MGMT CONSULT PRN (15:28)
[2024-05-20] MEDS ORDERED: GLUCOSE 10 TAB/TUBE PO PRN (15:28)
[2024-05-20] MEDS ORDERED: CARBOHYDRATES FOR HYPOGLYCEMIA PO PRN (15:28)
[2024-05-20] MEDS ORDERED: DEXTROSE 50% 50 ML SYRINGE IV PRN (15:28)
[2024-05-20] MEDS ORDERED: GLUCAGON FOR INJ 1 MG VIAL SQ PRN (15:28)
[2024-05-20] MEDS ORDERED: GLUCOSE 40% GEL 15 GM TUBE PO PRN (15:28)
[2024-05-20 15:52] LABS: Folate (Folic Acid),Ser orPlas 9.92 ng/ml (>5.38)
--- NOTE | 2024-05-20 15:57 | Electrocardiogram Report ---
Test Reason : Blood Pressure : */* mmHG Vent. Rate : 62 BPM Atrial Rate : 62 BPM P-R Int : 162 ms QRS Dur : 164 ms QT Int : 532 ms P-R-T Axes : * -87 96 degrees QTcB Int : 539 ms AV dual-paced rhythm Abnormal ECG When compared with ECG of 14-May-2024 06:25, Vent. rate has decreased by 11 bpm Confirmed by River Penny ([id number]) on 05/20/2024 3:56:15 PM Referred By: [facility] Confirmed By: River Penny
--- NOTE | 2024-05-20 16:51 | CT Scan Report ---
EXAMINATION: CT of the abdomen and pelvis performed without contrast TECHNIQUE: Helical CT images from the lung bases through the symphysis pubis were obtained without contrast. Coronal and sagittal reformatted images were generated at a workstation for further assessment. Dose reduction techniques were achieved by using automatic exposure control and/or adjustment of mA and/or kV according to patient size and/or use of iterative reconstruction technique. COMPARISON: May 12, 2024 HISTORY: Abdominal pain FINDINGS: Lower chest: No consolidation. No pleural effusion or pneumothorax. Liver: No suspicious liver lesions. Gallbladder: Close ectomy. Spleen: Normal size. Pancreas: No suspicious pancreatic lesions. The pancreatic duct is not dilated. Adrenal glands: No adrenal nodules. Kidneys: No hydronephrosis or obstructing renal stones. Bladder / Pelvic organs: Unremarkable. Bowel: No bowel obstruction. No abnormal bowel wall thickening. The appendix is unremarkable. Lymph nodes: No retroperitoneal, mesenteric, or pelvic lymphadenopathy. Peritoneum / Retroperitoneum: No free fluid or air within the abdomen. Vessels: No infrarenal aortic aneurysm. Heavy arterial sclerosis diffusely. Bones and soft tissues: No suspicious lesion in the bones. There is a prominent fat-containing umbilical hernia. Subcutaneous inflammatory fat stranding and skin thickening of the lower abdominal wall pannus which may be seen with cellulitis. Severe discogenic degenerative change again seen at L4-5 and L5-S1. IMPRESSION: No acute finding in the abdomen or pelvis. Findings consistent with cellulitis of the lower abdominal wall pannus. Arteriosclerosis. Prominent fatty umbilical hernia. Electronically signed by River Bailey 05-20-2024 4:50 PM
--- NOTE | 2024-05-20 17:19 | XRay Report ---
EXAM: XR humerus LT 2V CLINICAL HISTORY: fall, hematoma TECHNIQUE: X-ray images of the left humerus were obtained in anteroposterior (AP) and lateral projections. COMPARISON: No prior studies available for comparison. FINDINGS: Bone Structure: Bone structure is normal and aligned. No evidence of fracture or dislocation. Humerus is intact without any osseous lesions or abnormalities. Soft Tissues: Soft tissue edema noted around the arm Small focus of calcification noted related to greater trochanter suggesting calcific tendinopathy joints: AC joint mild osteoarthritic changes IMPRESSION: 1. No evidence of acute fracture, dislocation. 2. Soft tissue edema noted around the arm. 3. Small focus of calcification noted related to greater trochanter suggesting calcific tendinopathy. Disclaimer: A subtle bone abnormality or fracture may not be readily apparent on X-rays, thus clinical correlation and further imaging, including follow-up CT, MRI, or follow-up X-rays, are advised as needed. Electronically signed by Leni Rivera 05-20-2024 5:19 PM
--- NOTE | 2024-05-20 17:42 | XRay Report ---
EXAM: XR forearm LT 2V CLINICAL HISTORY: fall, hematoma TECHNIQUE: X-ray images of the left forearm were obtained in anteroposterior (AP) and lateral projections. COMPARISON: No prior studies are available for comparison. FINDINGS: Bone Structure: The bone structure is normal and aligned. No evidence of fracture or dislocation. Radius and ulna are intact without any osseous lesions or abnormalities. Joint Spaces: subtle elevation of the anterior pad of fat suggestive of elbow joint effusion 1st CMC osteoarthritic changes Soft Tissues: possible soft tissue swelling at the anterior aspect of the elbow joint IMPRESSION: 1. Subtle elevation of the anterior pad of fat suggestive of mild elbow joint effusion, further assessment by CT is recommended if clinically indicated to detect any occult fracture if clinically warranted. 2. Possible soft tissue swelling at the anterior aspect of the elbow joint. Disclaimer: A subtle bone abnormality or fracture may not be readily apparent on X-rays, thus clinical correlation and further imaging, including follow-up CT, MRI, or follow-up X-rays, are advised as needed. Electronically signed by Leni Rivera 05-20-2024 5:42 PM
[2024-05-20] MEDS ORDERED: NITROGLYCERIN SL 0.4 MG/TAB TAB SL PRN (19:48)
[2024-05-20] MEDS ORDERED: ONDANSETRON 4 MG OD TAB PO PRN (19:48)
[2024-05-20] MEDS: INSULIN ASPART PER UNIT CHARGE SC SCH (20:52)
[2024-05-20 20:58] LABS: Hematocrit (blood only) 28.5 % (42.0-52.0)
[2024-05-20] MEDS: GABAPENTIN 300 MG CAP PO SCH (21:13)
[2024-05-20] MEDS: METOPROLOL SUCC 50MG EXT REL TAB PO SCH (21:13)
[2024-05-20] MEDS: CHOLESTYRAMINE LIGHT 4 GM PKT PO SCH (21:13)
[2024-05-20] MEDS: ATORVASTATIN 40 MG TAB PO SCH (21:13)
[2024-05-21 03:26] LABS: Basophils # (auto) 0.03 K/uL (0.00-0.20); Basophils % (auto) 0.4 %; Eosinophils # (auto) 0.51 K/uL (0.00-0.50); Eosinophils % (auto) 7.5 %; Hematocrit (blood only) 29.4 % (42.0-52.0); Hemoglobin 9.3 g/dl (14.0-18.0); Immature Granulocytes # (auto) 0.02 K/uL (0.01-0.20); Immature Granulocytes % (auto) 0.3 %; Lymphocytes # (auto) 1.19 K/uL (1.20-3.40); Lymphocytes % (auto) 17.5 %; Mean Corpuscular Hemoglobin 26.6 pg (25.0-34.0); Mean Corpuscular Hgb Conc 31.6 g/dL (32.0-36.0); Mean Corpuscular Volume 84.2 fL (80.0-100.0); Mean Platelet Volume 12.5 fL (9.4-12.4); Monocytes # (auto) 0.46 K/uL (0.11-0.59); Monocytes % (auto) 6.8 %; Neutrophils % (auto) 67.5 %; Platelet Count 116 K/uL (130-400); RDW Coefficient of Variation 17.9 % (11.5-14.5); RDW Standard Deviation 54.1 fL (36.4-46.3); Red Blood Count 3.49 M/uL (4.70-6.10); White Blood Count 6.81 K/ul (4.8-10.8)
[2024-05-21 03:33] LABS: BUN Creatinine Ratio 16.2 (10-20); Calcium 8.6 mg/dl (8.6-10.3); Potassium 3.8 mmol/L (3.5-5.1)
[2024-05-21] MEDS: LEVOTHYROXINE SODIUM 112 MCG TABLET PO SCH (06:44)
[2024-05-21] MEDS: TERAZOSIN HCL 5 MG CAP PO SCH (08:38)
[2024-05-21] MEDS: ASPIRIN 81 MG ECTAB PO SCH (08:38)
[2024-05-21] MEDS: POTASSIUM CHLORIDE 10 MEQ TABCR PO SCH (08:38)
[2024-05-21] MEDS: amLODIPine BESYLATE 5 MG TAB PO SCH (08:38)
[2024-05-21] MEDS: CALCITRIOL 0.25 MCG CAPSULE PO SCH (08:38)
[2024-05-21] MEDS: SENNA 8.6 MG TAB PO SCH (08:38)
[2024-05-21] MEDS: SERTRALINE HCL 50 MG TABLET PO SCH (08:39)
[2024-05-21] MEDS: PANTOprazole 40 MG TAB PO SCH (08:39)
[2024-05-21] MEDS: MAGNESIUM OXIDE 400 MG TAB PO SCH (08:39)
[2024-05-21] MEDS: POLYETHYLENE (MIRALAX) 17 GM PACK PO SCH (08:43)
--- NOTE | 2024-05-21 09:17 | Pharmacy Report ---
Pharmacy Glycemic Short Note 2 - Date of Service May 21, 2024 - Glycemic Short BSG Results (Last 24 hours): 05/20/24 05/20/24 05/20/24 11:25 18:02 21:10 Glucose 248 H POC Glucose 199 H 223 H 05/21/24 05/21/24 03:07 08:51 Glucose 162 H POC Glucose 184 H OUTPATIENT ANTIDIABETIC REGIMEN: * Tresiba 40mg SQ Q AM * Admelog sliding scale * Jardiance 25mg PO daily HbA1c 7.4% on 05-10-24 ASSESSMENT: * 79 YO M, PMH of PE, type II DM with labile blood sugars, CHF, chronic anemia, neuropathy, and history of cholecystectomy with recent hospital admission and discharged 05/19 after being found to have suspected new pancreatic cancer, influenza, and an acute versus subacute DVT. He presents back after he felt tired and weak and slid to the floor at his facility overnight. * Patient only received 1 of the 2 doses of NovoLog ordered in ER last night, fasting a little elevated this AM 184mg/dl, will begin patient's basal and NovoLog parameters from last admission, titrate to goal blood sugar. PLAN FOR INPATIENT GLYCEMIC CONTROL: * Hold outpatient diabetes medications * Basal insulin * Lantus 20 units QAM * Bolus insulin * NovoLog per scale ACHS or Q6hrs while NPO * Goal Range: Low 110 mg/dL - High 140 mg/dL * Correction Factor: 20 mg/dL/unit * Nutritional / Prandial insulin per carb ratio of 1 unit per 6 grams CHO consumed
[2024-05-21] MEDS: LANTUS PER UNIT CHARGE SC SCH (09:41)
--- NOTE | 2024-05-21 11:06 | Hospitalist Progress Note ---
Date of Service May 21, 2024 Assessment & Plan (1) Fall: Plan: 79-year-old male with history of PE, type II DM, CHF, chronic anemia, neuropathy, pacemaker, and history of cholecystectomy with recent hospital admission and discharged 05/19 after being found to have suspected new pancreatic cancer and influenza. He presents back after he felt tired and weak and slid to the floor at his facility overnight. Did not have a "fall "did not strike his head or have any injury. Per facility and patient does have some bleeding from a polyp in his ear which she was picking at with a fingernail otherwise denies bleeding. No melena/hematochezia but does have a downtrending hemoglobin from prior. Suspect recent influenza infection, generalized deconditioning, possible pancreatic cancer - all in the context of otherwise fragile health - were to blame for his mishap at the [facility]. I don't see any new infectious process. Fortunately it does not appear he has any fracture from the fall. PT, OT evals requested. (2) Anemia: Plan: B12, folic acid, and Fe levels all wnl (although transferrin sat is 16%). Frequent blood draws, suspected underlying pancreatic cancer, and blood loss into the left arm are likely all to blame. He received 1 unit of PRBCs overnight w/o incident. H/H are acceptable today. No overt GI bleeding. Eliquis placed on hold by admitting team - reasonable in light of the amount of blood loss. Repeat CBC am. (3) Generalized weakness: Plan: Suspect recent influenza infection, generalized deconditioning, possible pancreatic cancer, anemia - all in the context of otherwise fragile health - are to blame for his weakness Recent TSH, B12, folate, procal, etc all wnl PT, OT while here (4) Biliary obstruction: Plan: suspected pancreatic head mass with elevated LFTs in an obstructive pattern LFTs have actually improved the last few weeks needs outpatient EUS and bx for definitive diagnosis (5) Hematoma of left forearm: Plan: suspect due to trauma from his fall, although he denies that he struck the arm during the fall at the assisted living facility elbow xrays with ?effusion which could suggest occult fracture obtain CT L elbow - rule out Fx consider doppler of LUE although he has been taking Eliquis making a DVT highly unlikely elevate the arm ice (6) Influenza: Plan: recent hospitalization for such fluA completed his 5 day Tamiflu course clinically resolved (7) CHF (congestive heart failure): Plan: EF 55-60% on echo 09/2023 appears compensated on exam today (8) Diabetes type 2, uncontrolled: Plan: recent a1c 7.4% cont lantus cont novolog (9) DVT (deep venous thrombosis): Plan: 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 During the prior hospitalization the hospitalist team asked radiology to compare his old doppler from 2023 to the new doppler Radiology felt that there were NO changes in the DVTs in the RLE and thus Eliquis was continued (ie - no Eliquis failure) (10) Hypothyroidism: Plan: TSH 3.6 cont synthroid (11) Elevated LFTs: Plan: likely 2nd to biliary obstruction from the suspected pancreatic mass LFTs have actually improved over the last several weeks he needs outpatient EUS with [facility] for definitive dx (12) Hypertension: Plan: cont metoprolol succ cont amlodipine (13) Cardiac pacemaker: Plan: interrogation done today - no recent dysrhythmia to account for his fall at the [facility] on day of admission (14) Chronic kidney disease, stage IV (severe): Plan: baseline Cr 2.3-2.4 Creatinine on admission 2.68 Cr 2.4 today hold ARB repeat BMP am Plan updated pt's daughter Lola Cooper by phone this evening, 05/21 Admission and Anticipated Discharge Date Admission Date: May 20, 2024 Subjective patient lying comfortable in bed 2 main complaints - weakness/fatigue along with left arm/left elbow pain & swelling he states the left arm swelling started during his recent hospitalization I spoke with the physician assistant import manager caring for him during that recent stay and the amount of ecchymoses, etc was fairly mild then he denies that he struck the left arm during his "controlled fall" when he returned to [facility] hurts to bend the elbow a little denies pain in any other location he states "Just get me stronger" pacemaker interrogation completed - NO dysrhythmia around the time of his fall at [facility] Review of Systems Review of Systems: gen - no fevers or chills; appetite- fair cv - no chest pain pulm - no dyspnea at rest GI - no abd pain Physical Exam Physical Exam: gen - obese, NAD, lying comfortably in bed (flat); pleasant neck - no JVD mouth - MMM skin - extensive bruising/ecchymoses over the left arm extending from upper arm to the forearm; there are scattered bruises on his abdominal wall as well; pale heart - RRR, s1 s2 lungs - CTA b/l abd - soft NT ND BS+; umbilical hernia present & reducible ext - no edema of feet, pulses b/l feet 2+ musculo - left elbow - gross swelling about the elbow, tender over the olecrenon process to palpation as well as lateral epicondyle; swelling present over the upper and lower arms; right leg/calf is larger than the left calf Results & Data Results & Data Vital Signs (Past 12 Hours) Vital Signs Temp Pulse Pulse Resp BP Pulse Ox O2 Del Method 05/21/24 10:46 36.5 C 59 L 18 112/66 95 Room Air 05/21/24 08:44 60 20 161/85 H 96 Room Air 05/21/24 07:07 65 05/21/24 07:05 62 16 117/64 100 Room Air 05/21/24 04:38 62 18 111/58 L 99 Room Air 05/21/24 03:38 36.8 C 61 16 121/71 93 Room Air 05/21/24 02:07 63 18 133/75 95 Room Air 05/20/24 23:46 59 L Laboratory Results Laboratory Results - last 24 hr 05/20/24 05/20/24 05/21/24 20:44 21:10 03:07 WBC 6.81 RBC 3.49 L Hgb 9.0 L 9.3 L Hct 28.5 L 29.4 L MCV 84.2 MCH 26.6 MCHC 31.6 L RDW Std Deviation 54.1 H RDW Coeff of Rito 17.9 H Plt Count 116 L MPV 12.5 H Immature Gran % (Auto) 0.3 Neut % (Auto) 67.5 Lymph % (Auto) 17.5 [place] % (Auto) 6.8 Eos % (Auto) 7.5 Baso % (Auto) 0.4 Neut # (Auto) 4.60 Lymph # (Auto) 1.19 L [place] # (Auto) 0.46 Eos # (Auto) 0.51 H Baso # (Auto) 0.03 Immature Gran # (Auto) 0.02 Sodium 137 Potassium 3.8 Chloride 112 H Carbon Dioxide 21 Anion Gap 4 BUN 39 H Creatinine 2.41 H Est Cr Clr Drug Dosing 31.0 eGFR 26.98 BUN/Creatinine Ratio 16.2 Glucose 162 H POC Glucose 223 H Calcium 8.6 05/21/24 05/21/24 05/21/24 08:51 11:10 11:24 WBC RBC Hgb 8.5 L Hct 26.8 L MCV MCH MCHC RDW Std Deviation RDW Coeff of Rito Plt Count MPV Immature Gran % (Auto) Neut % (Auto) Lymph % (Auto) [place] % (Auto) Eos % (Auto) Baso % (Auto) Neut # (Auto) Lymph # (Auto) [place] # (Auto) Eos # (Auto) Baso # (Auto) Immature Gran # (Auto) Sodium Potassium Chloride Carbon Dioxide Anion Gap BUN Creatinine Est Cr Clr Drug Dosing eGFR BUN/Creatinine Ratio Glucose POC Glucose 184 H 242 H Calcium 05/21/24 05/21/24 16:12 19:39 WBC RBC Hgb Hct MCV MCH MCHC RDW Std Deviation RDW Coeff of Rito Plt Count MPV Immature Gran % (Auto) Neut % (Auto) Lymph % (Auto) [place] % (Auto) Eos % (Auto) Baso % (Auto) Neut # (Auto) Lymph # (Auto) [place] # (Auto) Eos # (Auto) Baso # (Auto) Immature Gran # (Auto) Sodium Potassium Chloride Carbon Dioxide Anion Gap BUN Creatinine Est Cr Clr Drug Dosing eGFR BUN/Creatinine Ratio Glucose POC Glucose 194 H 194 H Calcium PG Care Time/CCT Total # of Minutes Spent Total Time Spent with Patient: Total time spent is greater than 50% in coordination of care (as documented) at patient's floor/unit and/or counseling patient: Coding Level of Care Code 47653 SUB INP/OBS CARE 3/50MIN Diagnoses Fall W19.XXXA Encounter type: initial encounter Anemia D64.9 Generalized weakness R53.1 Biliary obstruction K83.1 Hematoma of left forearm S50.12XA Influenza J11.1 CHF (congestive heart failure) I50.9 Uncontrolled type 2 diabetes mellitus with hypoglycemia without coma E11.649 Coma presence: without coma Glycemic state: with hypoglycemia DVT (deep venous thrombosis) I82.409 Hypothyroidism, unspecified type E03.9 Hypothyroidism type: unspecified Elevated LFTs R79.89 Primary hypertension I10 Hypertension type: primary hypertension Cardiac pacemaker Z95.0 Chronic kidney disease, stage IV (severe) N18.4 (1) Fall Encounter type: initial encounter Qualified Code(s): W19.XXXA - Unspecified fall, initial encounter (8) Diabetes type 2, uncontrolled Coma presence: without coma Glycemic state: with hypoglycemia Qualified Code(s): E11.649 - Type 2 diabetes mellitus with hypoglycemia without coma (10) Hypothyroidism Hypothyroidism type: unspecified Qualified Code(s): E03.9 - Hypothyroidism, unspecified (12) Hypertension Hypertension type: primary hypertension Qualified Code(s): I10 - Essential (primary) hypertension
[2024-05-21 11:51] LABS: Hematocrit (blood only) 26.8 % (42.0-52.0); Hemoglobin 8.5 g/dl (14.0-18.0)
--- NOTE | 2024-05-21 12:48 | CT Scan Report ---
CT elbow LT wo con CLINICAL HISTORY: ?effusion on x-ray; r/o occult fracture COMPARISON STUDY: Left humerus and forearm radiograph May 20, 2024. TECHNIQUE: Axial images of the left elbow were obtained without IV contrast. Sagittal and coronal ref ormats were viewed. Automated exposure control was utilized for the study. A dose lowering technique was utilized adhering to the principles of ALARA. FINDINGS: This exam is mildly compromised by artifact. Alignment of the left elbow is anatomic. There are no fractures. No definite joint effusion is identified. There are no osseous lesions. Soft tissu e swelling overlying the posterior left elbow is present. No fluid collection is identified. There is no soft tissue gas. IMPRESSION: 1. Mild motion artifact. No acute fractures within the left elbow identified. 2. Posterior left elbow soft tissue swelling. ACT 112: Negative or not required by law. Electronically signed by: Lane Mcgovern M.D. 05/21/2024 12:46 PM
--- NOTE | 2024-05-21 22:21 | Ultrasound Report ---
Exam(s): US VENOUS LEFT UPPER EXTREMITY EXAM: US Duplex Left Upper Extremity Veins CLINICAL HISTORY: Edema TECHNIQUE: Real-time duplex ultrasound scan of the left upper extremity veins integrating B-mode two-dimensional vascular structure, Doppler spectral analysis, color flow Doppler imaging and compression. COMPARISON: No relevant prior studies available. FINDINGS: Deep veins: Unremarkable. No Deep vein thrombosis in the internal jugular, subclavian, axillary, or brachial veins. The veins demonstrate normal color flow, are normally compressible, with normal phasic flow and/or augmentation response. Superficial veins: Unremarkable. No thrombus in the visualized basilic and cephalic veins. Soft tissues: There is a 10.5 x 1.9 x 2.2 cm heterogeneous fluid collection of the left forearm. There is subcutaneous edema. IMPRESSION: 1. No deep vein thrombosis of the left upper extremity. 2. There is a 10.5 x 1.9 x 2.2 cm heterogeneous fluid collection of the left forearm. This is most consistent with a hematoma. 3. There is subcutaneous edema. Electronically signed by: Breanna Ruvalcaba MD 05/21/24 22:20 PM
[2024-05-22 08:18] LABS: Basophils # (auto) 0.02 K/uL (0.00-0.20); Basophils % (auto) 0.2 %; Eosinophils % (auto) 7.4 %; Hematocrit (blood only) 27.9 % (42.0-52.0); Hemoglobin 8.9 g/dl (14.0-18.0); Immature Granulocytes # (auto) 0.03 K/uL (0.01-0.20); Immature Granulocytes % (auto) 0.4 %; Lymphocytes # (auto) 1.33 K/uL (1.20-3.40); Lymphocytes % (auto) 16.4 %; Mean Corpuscular Hemoglobin 27.1 pg (25.0-34.0); Mean Corpuscular Hgb Conc 31.9 g/dL (32.0-36.0); Mean Corpuscular Volume 85.1 fL (80.0-100.0); Mean Platelet Volume 11.6 fL (9.4-12.4); Monocytes # (auto) 0.49 K/uL (0.11-0.59); Monocytes % (auto) 6.1 %; Neutrophils # (auto) 5.62 K/uL (1.40-6.50); Neutrophils % (auto) 69.5 %; Platelet Count 147 K/uL (130-400); RDW Coefficient of Variation 18.3 % (11.5-14.5); RDW Standard Deviation 54.7 fL (36.4-46.3); Red Blood Count 3.28 M/uL (4.70-6.10); White Blood Count 8.09 K/ul (4.8-10.8)
[2024-05-22 08:29] LABS: BUN Creatinine Ratio 16.9 (10-20); Calcium 8.7 mg/dl (8.6-10.3); Creatinine Clr Calc Pharmacy 31.6 ml/min; Potassium 3.9 mmol/L (3.5-5.1)
--- NOTE | 2024-05-22 17:40 | Hospitalist Progress Note ---
Date of Service May 22, 2024 Assessment & Plan (1) Hematoma of left forearm: Plan: 79-year-old male with history of PE, type II DM, CHF, chronic anemia, neuropathy, pacemaker, and history of cholecystectomy with recent hospital admission and discharged 05/19 after being found to have suspected new pancreatic cancer and influenza. He presents back after he felt tired and weak and slid to the floor at his facility overnight. Did not have a "fall "did not strike his head or have any injury. Per facility and patient does have some bleeding from a polyp in his ear which she was picking at with a fingernail otherwise denies bleeding. suspect hematoma is due to trauma [facility], although he denies that he struck the arm during that fall today he said "Maybe I hit the arm when I was here recently?" (however, I cannot find any report of that happening during the 05/14 to 05/19 hospitalization) elbow xrays with ?effusion which could suggest occult fracture CT L elbow obtained - NO fracture of elbow doppler of left arm - no DVT; large hematoma seen in the left forearm Eliquis on hold due to this hematoma did have drop in H/H due to the hematoma -- 10.9 --> 8.5 --> 7.8 s/p 1 unit PRBCs since then transfusion his H/H have been stable cont to elevate the arm ice today, then start heat on 05/23 encouraged patient to ice this region today (2) Acute blood loss anemia: Plan: 2nd to hematoma formation in the left arm in the setting of chronic Eliquis use s/p 1 unit PRBCs H/H stable since then repeat CBC in am of note - he has not had any bleeding from the ear since admission (3) Influenza: Plan: recent hospitalization for such fluA completed his 5 day Tamiflu course clinically resolved except for mild, lingering cough/wheeze here/there (4) Elevated LFTs: Plan: likely 2nd to biliary obstruction from the suspected pancreatic mass LFTs have actually improved over the last several weeks he needs outpatient EUS with [facility] for definitive dx (during prior admission MRCP/MRI pancreas was ordered but his pacemaker is not compatible) suspect that if he does have pancreatic ca it is contributing heavily to his failure to thrive (5) Fall: Plan: Suspect recent influenza infection, generalized deconditioning, possible pancreatic cancer - all in the context of otherwise fragile health - were to blame for his mishap at the [facility]. I don't see any new infectious process. Fortunately it does not appear he has any fracture from the fall. PT, OT evals requested. Suspect he will need higher level of care (SNF). (6) Anemia: Plan: B12, folic acid, and Fe levels all wnl (although transferrin sat is 16%). Frequent blood draws, suspected underlying pancreatic cancer, and blood loss into the left arm are likely all to blame. He received 1 unit of PRBCs w/o incident since admission. H/H are acceptable today. No overt GI bleeding. Eliquis placed on hold by admitting team - reasonable in light of the amount of blood loss. Repeat CBC am. In light of known chronic DVT, prior PEs, and suspected pancreatic ca at HIGH RISK of recurrent VTE Try to resume Eliquis tomorrow (or perhaps a heparin drip if any concern he could rebleed) due to this risk (7) Generalized weakness: Plan: Suspect recent influenza infection, generalized deconditioning, possible pancreatic cancer, anemia - all in the context of otherwise fragile health - are to blame for his weakness Recent TSH, B12, folate, procal, etc all wnl PT, OT while here (8) Biliary obstruction: Plan: suspected pancreatic head mass with elevated LFTs in an obstructive pattern LFTs have actually improved the last few weeks needs outpatient EUS and bx for definitive diagnosis (9) CHF (congestive heart failure): Plan: EF 55-60% on echo 09/2023 appears compensated on exam today (10) Diabetes type 2, uncontrolled: Plan: recent a1c 7.4% cont lantus cont novolog (11) DVT (deep venous thrombosis): Plan: 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 During the prior hospitalization the hospitalist team asked radiology to compare his old doppler from 2023 to the new doppler Radiology felt that there were NO changes in the DVTs in the RLE and thus Eliquis was continued (ie - no Eliquis failure) resume Eliquis as soon as possible (or, if concern about bleeding, a heparin drip) (12) Hypothyroidism: Plan: TSH 3.6 cont synthroid (13) Hypertension: Plan: cont metoprolol succ cont amlodipine (14) Cardiac pacemaker: Plan: interrogation done hospital day #1 - no recent dysrhythmia to account for [facility] (15) Chronic kidney disease, stage IV (severe): Plan: baseline Cr 2.3-2.4 Creatinine on admission 2.68 Cr 2.3 today hold ARB repeat BMP am Plan updated pt's daughter Lola Cooper by phone 05/21 Admission and Anticipated Discharge Date Admission Date: May 20, 2024 Subjective patient has been sleeping much of the day per staff he is often reluctant to do care activities when I came to see him he was sleeping he offered no complaints except for left arm discomfort oddly he has been refusing to elevated the arm or ice it I explained that he has a hematoma in the left arm and doing the above activities will help resolve it faster he states he is willing to follow our advice denies any other complaints he does admit he is very tired Review of Systems Review of Systems: cv - no orthopnea, no chest pain pulm - no dyspnea; mild wheeze and cough at times GI - no abd pain; no stool in a few days Physical Exam Physical Exam: gen - obese, NAD, lying comfortably in bed neck - no JVD mouth - MMM skin - extensive bruising/ecchymoses over the left arm extending from upper arm to the forearm; there is a hematoma in the left forearm - no change from yesterday's pm; there are scattered bruises on his abdominal wall as well; pale heart - RRR, s1 s2, no murmur lungs - scattered, mild, end-exp wheezes b/l; no rales abd - soft NT ND BS+; umbilical hernia present & reducible ext - no edema of feet, pulses b/l feet 2+ Results & Data Results & Data Vital Signs (Past 12 Hours) Vital Signs Temp Pulse Pulse Resp BP Pulse Ox O2 Del Method 05/22/24 15:10 36.5 C 61 17 106/63 92 Room Air 05/22/24 11:03 36.6 C 69 19 118/61 93 Room Air 05/22/24 07:26 36.4 C L 62 17 153/75 H 94 Room Air 05/22/24 07:00 61 Laboratory Results Laboratory Results - last 24 hr 05/22/24 05/22/24 05/22/24 07:24 08:01 11:20 WBC 8.09 RBC 3.28 L Hgb 8.9 L Hct 27.9 L MCV 85.1 MCH 27.1 MCHC 31.9 L RDW Std Deviation 54.7 H RDW Coeff of Rito 18.3 H Plt Count 147 MPV 11.6 Immature Gran % (Auto) 0.4 Neut % (Auto) 69.5 Lymph % (Auto) 16.4 [place] % (Auto) 6.1 Eos % (Auto) 7.4 Baso % (Auto) 0.2 Neut # (Auto) 5.62 Lymph # (Auto) 1.33 [place] # (Auto) 0.49 Eos # (Auto) 0.60 H Baso # (Auto) 0.02 Immature Gran # (Auto) 0.03 Sodium 139 Potassium 3.9 Chloride 112 H Carbon Dioxide 24 Anion Gap 3 BUN 40 H Creatinine 2.36 H Est Cr Clr Drug Dosing 31.6 eGFR 27.66 BUN/Creatinine Ratio 16.9 Glucose 124 H POC Glucose 148 H 206 H Calcium 8.7 05/22/24 16:25 WBC RBC Hgb Hct MCV MCH MCHC RDW Std Deviation RDW Coeff of Rito Plt Count MPV Immature Gran % (Auto) Neut % (Auto) Lymph % (Auto) [place] % (Auto) Eos % (Auto) Baso % (Auto) Neut # (Auto) Lymph # (Auto) [place] # (Auto) Eos # (Auto) Baso # (Auto) Immature Gran # (Auto) Sodium Potassium Chloride Carbon Dioxide Anion Gap BUN Creatinine Est Cr Clr Drug Dosing eGFR BUN/Creatinine Ratio Glucose POC Glucose 146 H Calcium PG Care Time/CCT Total # of Minutes Spent Total Time Spent with Patient: Total time spent is greater than 50% in coordination of care (as documented) at patient's floor/unit and/or counseling patient: Coding Level of Care Code 21693 SUB INP/OBS CARE 2/35MIN Diagnoses Hematoma of left forearm S50.12XA Acute blood loss anemia D62 Influenza J11.1 Elevated LFTs R79.89 Fall W19.XXXA Encounter type: initial encounter Anemia D64.9 Generalized weakness R53.1 Biliary obstruction K83.1 CHF (congestive heart failure) I50.9 Uncontrolled type 2 diabetes mellitus with hypoglycemia without coma E11.649 Coma presence: without coma Glycemic state: with hypoglycemia DVT (deep venous thrombosis) I82.409 Hypothyroidism, unspecified type E03.9 Hypothyroidism type: unspecified Primary hypertension I10 Hypertension type: primary hypertension Cardiac pacemaker Z95.0 Chronic kidney disease, stage IV (severe) N18.4 (5) Fall Encounter type: initial encounter Qualified Code(s): W19.XXXA - Unspecified fall, initial encounter (10) Diabetes type 2, uncontrolled Coma presence: without coma Glycemic state: with hypoglycemia Qualified Code(s): E11.649 - Type 2 diabetes mellitus with hypoglycemia without coma (12) Hypothyroidism Hypothyroidism type: unspecified Qualified Code(s): E03.9 - Hypothyroidism, unspecified (13) Hypertension Hypertension type: primary hypertension Qualified Code(s): I10 - Essential (primary) hypertension
[2024-05-23 06:27] LABS: Basophils # (auto) 0.03 K/uL (0.00-0.20); Basophils % (auto) 0.3 %; Eosinophils # (auto) 0.55 K/uL (0.00-0.50); Eosinophils % (auto) 6.2 %; Hematocrit (blood only) 27.9 % (42.0-52.0); Hemoglobin 8.9 g/dl (14.0-18.0); Immature Granulocytes # (auto) 0.05 K/uL (0.01-0.20); Immature Granulocytes % (auto) 0.6 %; Lymphocytes # (auto) 1.19 K/uL (1.20-3.40); Lymphocytes % (auto) 13.4 %; Mean Corpuscular Hemoglobin 27.2 pg (25.0-34.0); Mean Corpuscular Hgb Conc 31.9 g/dL (32.0-36.0); Mean Corpuscular Volume 85.3 fL (80.0-100.0); Mean Platelet Volume 12.5 fL (9.4-12.4); Monocytes # (auto) 0.58 K/uL (0.11-0.59); Monocytes % (auto) 6.6 %; Neutrophils # (auto) 6.45 K/uL (1.40-6.50); Neutrophils % (auto) 72.9 %; Platelet Count 182 K/uL (130-400); RDW Coefficient of Variation 18.6 % (11.5-14.5); RDW Standard Deviation 56.2 fL (36.4-46.3); Red Blood Count 3.27 M/uL (4.70-6.10); White Blood Count 8.85 K/ul (4.8-10.8)
[2024-05-23] MEDS: CIPRO 0.3%/DEXAMETHASONE 0.1% OTIC SUSP 7.5ML OTL SCH (06:35)
[2024-05-23 06:58] LABS: BUN Creatinine Ratio 17.1 (10-20); Calcium 8.9 mg/dl (8.6-10.3); Creatinine Clr Calc Pharmacy 30.3 ml/min
[2024-05-23 07:01] LABS: Base Excess VBG -5.6 mEq/L; HCO3 VBG 19 mmol/L; PCO2 VBG 34 mmHg (38-50); PO2 VBG 49 mmHg; pH VBG 7.36 (7.36-7.41)
[2024-05-23] MEDS ORDERED: POLYETHYLENE (MIRALAX) 17 GM PACK PO PRN (16:44)
--- NOTE | 2024-05-23 16:55 | Hospitalist Progress Note ---
Date of Service May 23, 2024 Assessment & Plan (1) Hematoma of left forearm: Plan: 79-year-old male with history of PE, type II DM, CHF, chronic anemia, neuropathy, pacemaker, and history of cholecystectomy with recent hospital admission and discharged 05/19 after being found to have pancreas mass, suspected pancreatic cancer and influenza. He presents back after he felt tired and weak and slid to the floor at his facility overnight. Did not have a "fall "did not strike his head or have any injury. Per facility and patient does have some bleeding from a polyp in his ear which he was picking at with a fingernail otherwise denies bleeding. # left forearm hematoma setting of apixaban and aspirin - potentially could have been minor trauma versus left forearm peripheral IV site from previous admission # acute blood loss anemia - transfused 1 unit RBCs this admission, thereafter H&H has been stable. B12, folic acid, and Fe levels all wnl (although transferrin sat is 16%) CT L elbow obtained - NO fracture of elbow doppler of left arm - no DVT; large hematoma seen in the left forearm - hemoglobin remains stable today at 8.9, left forearm remains soft intact pulses no evidence of compartment syndrome - try resuming apixaban tonight monitor exam and H/H - continue to elevate (2) Acute blood loss anemia: Plan: see above (3) Influenza: Plan: completed course of Tamiflu for recent influenza A, resolved (4) Fall: Plan: Suspect recent influenza infection, generalized deconditioning, possible pancreatic cancer - all in the context of otherwise fragile health - were to blame for his mishap at the [facility]. I ordered PT/OT evaluations, pending (5) Generalized weakness: Plan: Suspect recent influenza infection, generalized deconditioning, possible pancreatic cancer, anemia - all in the context of otherwise fragile health - are to blame for his weakness Recent TSH, B12, folate, procal, etc all wnl PT, OT while here (6) Biliary obstruction: Plan: suspected pancreatic head mass with elevated LFTs in an obstructive pattern needs outpatient EUS and bx with [facility] for definitive diagnosis elevated LFTs related to this which have improved with last few weeks unable to do MRCP because his pacemaker is not compatible (7) CHF (congestive heart failure): Plan: chronic diastolic heart failure EF 55-60% on echo 09/2023 appears compensated on exam today (8) Diabetes type 2, uncontrolled: Plan: recent a1c 7.4% cont lantus cont novolog (9) DVT (deep venous thrombosis): Plan: 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 During the prior hospitalization the hospitalist team asked radiology to compare his old doppler from 2023 to the new doppler Radiology felt that there were NO changes in the DVTs in the RLE and thus Eliquis was continued (ie - no Eliquis failure) hypercoagulable state due to history of prior VTE's and pancreas cancer resume Eliquis (10) Hypothyroidism: Plan: TSH 3.6 cont synthroid (11) Hypertension: Plan: cont metoprolol succ cont amlodipine (12) Cardiac pacemaker: Plan: interrogation done hospital day #1 - no recent dysrhythmia to account for his fall at the [facility] on day of admission (13) Chronic kidney disease, stage IV (severe): Plan: baseline Cr 2.3-2.4 Creatinine on admission 2.68 creatinine 2.45, ARB currently held Plan updated pt's daughter Lola Cooper by phone 05/21 Admission and Anticipated Discharge Date Admission Date: May 20, 2024 Subjective L forearm swelling is the same. Not too painful. Says he had a PIV site in forearm previous admission. Physical Exam 2 Physical Exam: PHYSICAL EXAMINATION Last 24h vital signs reviewed, see documentation in flowsheet General: comfortable appearing, no distress, sitting up in bed HEENT: Normocephalic, atraumatic, pupils round and equal, sclerae anicteric, no conjunctival injection, moist mucus membranes Lungs: Normal respiratory effort. Clear to auscultation bilaterally. No RRW Heart: Regular rate and rhythm, no murmurs. No JVD Abdomen: Soft, nontender, nondistended. Bowel sounds present. Extremities: Warm, dry, well-perfused. left forearm with swelling and ecchymosis, dark purple ecchymosis tracks up medial upper arm. forearm swelling is currently soft, left hand is warm 2+ radial and ulnar pulses Neuro: Alert and oriented x 4, face symmetric, moves 4 extremities well Psych: Normal affect and behavior Results & Data Results & Data Vital Signs (Past 12 Hours) Vital Signs Temp Pulse Pulse Resp BP Pulse Ox O2 Del Method 05/23/24 15:55 97.5 F L 63 18 114/55 L 94 Room Air 05/23/24 14:24 61 05/23/24 10:43 97.7 F 67 18 150/71 H 93 Room Air 05/23/24 08:00 66 05/23/24 07:24 98.2 F 80 18 134/64 95 Room Air Laboratory Results 05/23/24 05:21 05/23/24 05:21 PG Care Time/CCT Total # of Minutes Spent Total Time Spent with Patient: Total time spent is greater than 50% in coordination of care (as documented) at patient's floor/unit and/or counseling patient: Coding Level of Care Code 92876 SUB INP/OBS CARE 235MIN Diagnoses Hematoma of left forearm S50.12XA Acute blood loss anemia D62 Influenza J11.1 Fall W19.XXXA Encounter type: initial encounter Generalized weakness R53.1 Biliary obstruction K83.1 CHF (congestive heart failure) I50.9 Uncontrolled type 2 diabetes mellitus with hypoglycemia without coma E11.649 Glycemic state: with hypoglycemia Coma presence: without coma DVT (deep venous thrombosis) I82.409 Hypothyroidism, unspecified type E03.9 Hypothyroidism type: unspecified Primary hypertension I10 Hypertension type: primary hypertension Cardiac pacemaker Z95.0 Chronic kidney disease, stage IV (severe) N18.4 (4) Fall Encounter type: initial encounter Qualified Code(s): W19.XXXA - Unspecified fall, initial encounter (8) Diabetes type 2, uncontrolled Glycemic state: with hypoglycemia Coma presence: without coma Qualified Code(s): E11.649 - Type 2 diabetes mellitus with hypoglycemia without coma (10) Hypothyroidism Hypothyroidism type: unspecified Qualified Code(s): E03.9 - Hypothyroidism, unspecified (11) Hypertension Hypertension type: primary hypertension Qualified Code(s): I10 - Essential (primary) hypertension
[2024-05-23] MEDS: APIXABAN 5 MG TABLET PO SCH (22:45)
[2024-05-24 06:59] LABS: Hematocrit (blood only) 28.3 % (42.0-52.0); Mean Corpuscular Hemoglobin 27.1 pg (25.0-34.0); Mean Corpuscular Hgb Conc 31.8 g/dL (32.0-36.0); Mean Corpuscular Volume 85.2 fL (80.0-100.0); Mean Platelet Volume 11.6 fL (9.4-12.4); Platelet Count 186 K/uL (130-400); RDW Coefficient of Variation 19.2 % (11.5-14.5); RDW Standard Deviation 58.4 fL (36.4-46.3); Red Blood Count 3.32 M/uL (4.70-6.10); White Blood Count 10.56 K/ul (4.8-10.8)
[2024-05-24] MEDS ORDERED: POLYETHYLENE (MIRALAX) 17 GM PACK PO SCH (09:00)
--- NOTE | 2024-05-24 16:53 | Hospitalist Progress Note ---
Date of Service May 24, 2024 Assessment & Plan (1) Hematoma of left forearm: Plan: 79-year-old male with history of PE, type II DM, CHF, chronic anemia, neuropathy, pacemaker, and history of cholecystectomy with recent hospital admission and discharged 05/19 after being found to have pancreas mass, suspected pancreatic cancer and influenza. He presents back after he felt tired and weak and slid to the floor at his facility overnight. Did not have a "fall "did not strike his head or have any injury. Per facility and patient does have some bleeding from a polyp in his ear which he was picking at with a fingernail otherwise denies bleeding. # left forearm hematoma setting of apixaban and aspirin - potentially could have been minor trauma versus left forearm peripheral IV site from previous admission # acute blood loss anemia - transfused 1 unit RBCs this admission, thereafter H&H has been stable. B12, folic acid, and Fe levels all wnl (although transferrin sat is 16%) CT L elbow obtained - NO fracture of elbow doppler of left arm - no DVT; large hematoma seen in the left forearm - hemoglobin remains stable at 9.0, no worsening of L forearm swelling despite resumption of apixaban, pulses intact, forearm is soft - continue apixaban and monitor exam - continue to elevate (2) Acute blood loss anemia: Plan: see above (3) Influenza: Plan: completed course of Tamiflu for recent influenza A, resolved (4) Fall: Plan: Suspect recent influenza infection, generalized deconditioning, possible pancreatic cancer - all in the context of otherwise fragile health - were to blame for his mishap at the [facility]. (5) Generalized weakness: Plan: Suspect recent influenza infection, generalized deconditioning, possible pancreatic cancer, anemia - all in the context of otherwise fragile health - are to blame for his weakness Recent TSH, B12, folate, procal, etc all wnl PT, OT while here (6) Biliary obstruction: Plan: suspected pancreatic head mass with elevated LFTs in an obstructive pattern needs outpatient EUS and bx with [facility] for definitive diagnosis elevated LFTs related to this which have improved with last few weeks unable to do MRCP because his pacemaker is not compatible (7) CHF (congestive heart failure): Plan: chronic diastolic heart failure EF 55-60% on echo 09/2023 appears compensated on exam today (8) Diabetes type 2, uncontrolled: Plan: recent a1c 7.4% cont lantus cont novolog (9) DVT (deep venous thrombosis): Plan: 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 During the prior hospitalization the hospitalist team asked radiology to compare his old doppler from 2023 to the new doppler Radiology felt that there were NO changes in the DVTs in the RLE and thus Eliquis was continued (ie - no Eliquis failure) hypercoagulable state due to history of prior VTE's and pancreas cancer resumed Eliquis (10) Hypothyroidism: Plan: TSH 3.6 cont synthroid (11) Hypertension: Plan: cont metoprolol succ cont amlodipine (12) Cardiac pacemaker: Plan: interrogation done hospital day #1 - no recent dysrhythmia to account for his fall at the [facility] on day of admission (13) Chronic kidney disease, stage IV (severe): Plan: baseline Cr 2.3-2.4 Creatinine on admission 2.68 creatinine 2.45, ARB currently held Plan updated pt's daughter Lola Cooper by phone 05/21 PT/OT recommendations reviewed - recommend rehab Care coord made referrals to [facility] Admission and Anticipated Discharge Date Admission Date: May 20, 2024 Subjective States his L forearm swelling is unchanged, not painful, no numbness or tingling of hand Remains weak and below baseline Physical Exam 2 Physical Exam: PHYSICAL EXAMINATION Last 24h vital signs reviewed, see documentation in flowsheet General: comfortable appearing, no distress, sitting in chair HEENT: Normocephalic, atraumatic, pupils round and equal, sclerae anicteric, no conjunctival injection, moist mucus membranes Lungs: Normal respiratory effort. Clear to auscultation bilaterally. No RRW Heart: Regular rate and rhythm, no murmurs. No JVD Abdomen: Soft, nontender, nondistended. Bowel sounds present. Extremities: Warm, dry, well-perfused. unchanged forearm exam 05/24 left forearm with swelling and ecchymosis, dark purple ecchymosis tracks up medial upper arm. forearm swelling is currently soft, left hand is warm 2+ radial and ulnar pulses Neuro: Alert and oriented x 4, face symmetric, moves 4 extremities well Psych: Normal affect and behavior Results & Data Results & Data Vital Signs (Past 12 Hours) Vital Signs Temp Pulse Pulse Resp BP Pulse Ox O2 Del Method 05/24/24 15:36 97.7 F 05/24/24 15:12 90.3 F L 60 12 151/84 H 97 Room Air 05/24/24 10:04 68 05/24/24 08:25 98.4 F 72 16 168/73 H 97 Room Air Laboratory Results 05/24/24 06:08 05/23/24 05:21 PG Care Time/CCT Total # of Minutes Spent Total Time Spent with Patient: Total time spent is greater than 50% in coordination of care (as documented) at patient's floor/unit and/or counseling patient: Coding Level of Care Code 36614 SUB INP/OBS CARE 235MIN Diagnoses Hematoma of left forearm S50.12XA Acute blood loss anemia D62 Influenza J11.1 Fall W19.XXXA Encounter type: initial encounter Generalized weakness R53.1 Biliary obstruction K83.1 CHF (congestive heart failure) I50.9 Uncontrolled type 2 diabetes mellitus with hypoglycemia without coma E11.649 Glycemic state: with hypoglycemia Coma presence: without coma DVT (deep venous thrombosis) I82.409 Hypothyroidism, unspecified type E03.9 Hypothyroidism type: unspecified Primary hypertension I10 Hypertension type: primary hypertension Cardiac pacemaker Z95.0 Chronic kidney disease, stage IV (severe) N18.4 (4) Fall Encounter type: initial encounter Qualified Code(s): W19.XXXA - Unspecified fall, initial encounter (8) Diabetes type 2, uncontrolled Glycemic state: with hypoglycemia Coma presence: without coma Qualified Code(s): E11.649 - Type 2 diabetes mellitus with hypoglycemia without coma (10) Hypothyroidism Hypothyroidism type: unspecified Qualified Code(s): E03.9 - Hypothyroidism, unspecified (11) Hypertension Hypertension type: primary hypertension Qualified Code(s): I10 - Essential (primary) hypertension
--- NOTE | 2024-05-25 16:53 | Hospitalist Progress Note ---
Date of Service May 25, 2024 Assessment & Plan (1) Hematoma of left forearm: (2) Mass of head of pancreas: (3) CHF (congestive heart failure): (4) Acute blood loss anemia: (5) Chronic kidney disease, stage IV (severe): Plan 79-year-old male with history of PE, type II DM, CHF, chronic anemia, neuropathy, pacemaker, and history of cholecystectomy with recent hospital admission and discharged 05/19 after being found to have pancreas mass, suspected pancreatic cancer and influenza. He presents back after he felt tired and weak and slid to the floor at his [facility]. Did not have a "fall "did not strike his head or have any injury. Per facility and patient does have some bleeding from a polyp in his ear which he was picking at with a fingernail otherwise denies bleeding. # left forearm hematoma setting of apixaban and aspirin - potentially could have been minor trauma versus left forearm peripheral IV site from previous admission # acute blood loss anemia - transfused 1 unit RBCs this admission, thereafter H&H has been stable. B12, folic acid, and Fe levels all wnl (although transferrin sat is 16%) CT L elbow obtained - negative for fracture doppler of left arm - no DVT; large hematoma seen in the left forearm - hemoglobin remains stable at 9.0, improvement L forearm swelling despite resumption of apixaban, pulses intact, forearm is soft and hand well perfused - continue apixaban and monitor exam - continue to elevate - AM CBC # Mass of the head of the pancreas - suspicious for malignancy - unable to do MRCP because his pacemaker is not compatible - his daughter reported that Jonn [facility] has called family to schedule. Will probably need EGD/EUS with biopsy - he has some degree of biliary obstruction - CMP in AM # Hypercoagulable state, chronic right lower extremity DVT with history of extensive bilateral PE (11/2021) - resumed apixaban # CKD stage 4 - am CMP, if Cr stable resume ARB Other chronic issues: # Chronic diastolic heart failure and HTN - EF 55-60% on echo 09/2023 - cont amlodipine, metoprolol, resume ARB. Remains euvolemic on exam # DM type 2 recent a1c 7.4% - BG controlled on glargine and premeal aspart # hypothyroid - continue levothyroxine pacemaker interrogation done hospital day #1 - no recent dysrhythmia to account for his fall at the [facility] on day of admission updated pt's daughter Lola Cooper by phone 05/21, 05/25 generalized weakness, fall - PT/OT recommendations reviewed - recommend rehab Care coord made referrals to [facility] [place] [facility] Admission and Anticipated Discharge Date Admission Date: May 20, 2024 Subjective doing well his left forearms soreness is progressively improving and the swelling also has improved continues to have sensation of left ear plugging despite treatment course with Debrox drops Physical Exam Physical Exam: PHYSICAL EXAMINATION Last 24h vital signs reviewed, see documentation in flowsheet General: sitting up on the edge of the bed HEENT: Normocephalic, atraumatic, pupils round and equal, sclerae anicteric, no conjunctival injection, moist mucus membranes left ear with large hard appearing wax plug, there is some central passage there but too small for otoscope Lungs: Normal respiratory effort. Heart: deferred Abdomen: nondistended Extremities: Warm, dry, well-perfused. left forearm appears improved today continues with dark purple evolving ecchymosis of forearm and medial upper arm, left forearm with swelling that has softened and flattened out there is some pitting edema as well, hand remains well-perfused and warm Neuro: Alert and oriented x 4, face symmetric, moves 4 extremities well Psych: Normal affect and behavior Results & Data Results & Data Vital Signs (Past 12 Hours) Vital Signs Temp Pulse Resp BP Pulse Ox O2 Del Method 05/25/24 14:59 97.5 F L 61 18 119/69 95 Room Air 05/25/24 07:17 97.9 F 62 16 146/73 H 96 Room Air PG Care Time/CCT Total # of Minutes Spent Total Time Spent with Patient: Total time spent is greater than 50% in coordination of care (as documented) at patient's floor/unit and/or counseling patient: Coding Level of Care Code 78166 SUB INP/OBS CARE 2/35MIN Diagnoses Hematoma of left forearm S50.12XA Mass of head of pancreas K86.89 CHF (congestive heart failure) I50.9 Acute blood loss anemia D62 Chronic kidney disease, stage IV (severe) N18.4
[2024-05-25] MEDS: NYSTATIN POWDER 15GM BTL EXT PRN (21:23)
[2024-05-26 09:00] LABS: Hematocrit (blood only) 25.7 % (42.0-52.0); Hemoglobin 8.1 g/dl (14.0-18.0); Mean Corpuscular Hgb Conc 31.5 g/dL (32.0-36.0); Mean Corpuscular Volume 85.7 fL (80.0-100.0); Mean Platelet Volume 11.2 fL (9.4-12.4); Platelet Count 193 K/uL (130-400); RDW Coefficient of Variation 19.2 % (11.5-14.5); RDW Standard Deviation 59.6 fL (36.4-46.3); White Blood Count 6.93 K/ul (4.8-10.8)
[2024-05-26 09:09] LABS: Albumin Globulin Ratio 0.9 (0.9-2); Albumin Level 2.7 gm/dl (3.4-5.0); BUN Creatinine Ratio 20.6 (10-20); Bilirubin,Total 2.2 mg/dl (0.2-1.0); Calcium 8.8 mg/dl (8.6-10.3); Creatinine Clr Calc Pharmacy 34.1 ml/min; Globulin 3.1 gm/dl (2.5-4.0); Potassium 4.3 mmol/L (3.5-5.1); Total Protein 5.8 gm/dl (6.0-8.3)
--- NOTE | 2024-05-26 14:19 | Pharmacy Report ---
Pharmacy Glycemic Short Note 2 - Date of Service May 26, 2024 - Glycemic Short BSG Results (Last 24 hours): 05/25/24 05/25/24 05/26/24 15:58 20:09 07:16 Glucose POC Glucose 134 H 201 H 124 H 05/26/24 05/26/24 08:30 10:58 Glucose 190 H POC Glucose 175 H OUTPATIENT ANTIDIABETIC REGIMEN: * Tresiba 40mg SQ Q AM * Admelog sliding scale * Jardiance 25mg PO daily HbA1c 7.4% on 05-10-24 ASSESSMENT: 05/26 * Patient received total of 40 units of insulin yesterday, of which 20 units were basal insulin * Fasting BSG 124 mg/dL - no change to basal * Continue same CF/Cr 05/22 * 79 YO M, PMH of PE, type II DM with labile blood sugars, CHF, chronic anemia, neuropathy, and history of cholecystectomy with recent hospital admission and discharged 05/19 after being found to have suspected new pancreatic cancer, influenza, and an acute versus subacute DVT. He presents back after he felt tired and weak and slid to the floor at his facility overnight. * Patient only received 1 of the 2 doses of NovoLog ordered in ER last night, fasting a little elevated this AM 184mg/dl, will begin patient's basal and NovoLog parameters from last admission, titrate to goal blood sugar. PLAN FOR INPATIENT GLYCEMIC CONTROL: * Hold outpatient diabetes medications * Basal insulin * Lantus 20 units QAM * Bolus insulin * NovoLog per scale ACHS or Q6hrs while NPO * Goal Range: Low 110 mg/dL - High 140 mg/dL * Correction Factor: 20 mg/dL/unit * Nutritional / Prandial insulin per carb ratio of 1 unit per 5 grams CHO consumed
--- NOTE | 2024-05-26 18:29 | Hospitalist Progress Note ---
Date of Service May 26, 2024 Assessment & Plan (1) Hematoma of left forearm: (2) Mass of head of pancreas: (3) CHF (congestive heart failure): (4) Acute blood loss anemia: (5) Chronic kidney disease, stage IV (severe): Plan 79-year-old male with history of PE, type II DM, CHF, chronic anemia, neuropathy, pacemaker, and history of cholecystectomy with recent hospital admission and discharged 05/19 after being found to have pancreas mass, suspected pancreatic cancer and influenza. He presents back after he felt tired and weak and slid to the floor at his [facility]. Did not have a "fall "did not strike his head or have any injury. Per facility and patient does have some bleeding from a polyp in his ear which he was picking at with a fingernail otherwise denies bleeding. # left forearm hematoma setting of apixaban and aspirin - potentially could have been minor trauma versus left forearm peripheral IV site from previous admission # acute blood loss anemia - transfused 1 unit RBCs this admission, thereafter H&H has been stable. B12, folic acid, and Fe levels all wnl (although transferrin sat is 16%) CT L elbow obtained - negative for fracture doppler of left arm - no DVT; large hematoma seen in the left forearm - hemoglobin decreased a little bit to 8.1 however no evidence of acute bleeding or worsening in his left forearm hematoma based on symptoms or exam - continue apixaban and monitor exam - continue to elevate # Mass of the head of the pancreas - suspicious for malignancy - unable to do MRCP because his pacemaker is not compatible - his daughter reported that [facility] has called family to schedule. Will probably need EGD/EUS with biopsy - he has some degree of biliary obstruction - CMP reviewed 05/26 - bilirubin has improved to 2.2 ( peak was 6.5 a few weeks ago), AST/ALT/alk phos all significantly downtrending # Hypercoagulable state, chronic right lower extremity DVT with history of extensive bilateral PE (11/2021) - resumed apixaban # CKD stage 4 - creatinine improved to 2.18 which is better than his usual baseline will resume ARB torrey Logan performed bilateral ear irrigation with normal saline resultant of a very large wax plug from left and few small pieces of wax plug from right, after that no visible plugs at least in distal canal. Ordered another round of 4 days of Debrox drops Other chronic issues: # Chronic diastolic heart failure and HTN - EF 55-60% on echo 09/2023 - cont amlodipine, metoprolol, resume ARB. Remains euvolemic on exam # DM type 2 recent a1c 7.4% - BG controlled on glargine and premeal aspart - blood glucose reviewed and remains at goal # hypothyroid - continue levothyroxine pacemaker interrogation done hospital day #1 - no recent dysrhythmia to account for his fall at the [facility] on day of admission updated pt's daughter Lola Cooper by phone 05/21, 05/25 generalized weakness, fall - PT/OT recommendations reviewed - recommend rehab Care coord made referral to [facility] Admission and Anticipated Discharge Date Admission Date: May 20, 2024 Subjective Mr. Poe is reclining in bed listening to headphones, he reports that his left arm symptoms are stable and slowly improving, forearm is no longer painful and not very tender he continues to feel like his ears are plugged bilaterally Physical Exam 2 Physical Exam: PHYSICAL EXAMINATION Last 24h vital signs reviewed, see documentation in flowsheet General: reclining in bed listening to headphones HEENT: Normocephalic, atraumatic, pupils round and equal, sclerae anicteric, no conjunctival injection, moist mucus membranes both ears have wax plugs, they are dark and hard appearing, there is a small scab lower part of right ear canal no bleeding Lungs: Normal respiratory effort. Heart: deferred Abdomen: nondistended Extremities: Warm, dry, well-perfused. left forearm appears improved today continues with dark purple evolving ecchymosis of forearm and medial upper arm, left forearm with swelling that has softened and flattened out there is some pitting edema as well, hand remains well-perfused and warm. no change to exam 05/26 Neuro: Alert and oriented x 4, face symmetric, moves 4 extremities well Psych: Normal affect and behavior Results & Data Results & Data Vital Signs (Past 12 Hours) Vital Signs Temp Pulse Resp BP Pulse Ox O2 Del Method 05/26/24 15:18 97.7 F 60 16 144/77 H 99 Room Air 05/26/24 10:58 Room Air 05/26/24 10:57 97.9 F 58 L 18 99/66 L 98 Room Air 05/26/24 07:20 97.5 F L 60 18 124/64 96 Room Air Laboratory Results 05/26/24 08:30 05/26/24 08:30 PG Care Time/CCT Total # of Minutes Spent Total Time Spent with Patient: Total time spent is greater than 50% in coordination of care (as documented) at patient's floor/unit and/or counseling patient: Coding Level of Care Code 22523 SUB INP/OBS CARE 2/35MIN Diagnoses Hematoma of left forearm S50.12XA Mass of head of pancreas K86.89 CHF (congestive heart failure) I50.9 Acute blood loss anemia D62 Chronic kidney disease, stage IV (severe) N18.4
[2024-05-26] MEDS: CARBAMIDE PEROXIDE 6.5% 15 ML BTL OT SCH (20:58)
[2024-05-27] MEDS: FUROSEMIDE 20 MG TAB PO SCH (09:05)
[2024-05-27] MEDS: LOSARTAN POTASSIUM 50 MG TAB PO SCH (09:05)
--- NOTE | 2024-05-27 17:55 | Hospitalist Progress Note ---
Date of Service May 27, 2024 Assessment & Plan (1) Hematoma of left forearm: (2) Mass of head of pancreas: (3) CHF (congestive heart failure): (4) Acute blood loss anemia: (5) Chronic kidney disease, stage IV (severe): Plan 79-year-old male with history of PE, type II DM, CHF, chronic anemia, neuropathy, pacemaker, and history of cholecystectomy with recent hospital admission and discharged 05/19 after being found to have pancreas mass, suspected pancreatic cancer and influenza. He presents back after he felt tired and weak and slid to the floor at his [facility]. Did not have a "fall "did not strike his head or have any injury. Per facility and patient does have some bleeding from a polyp in his ear which he was picking at with a fingernail otherwise denies bleeding. # left forearm hematoma setting of apixaban and aspirin - potentially could have been minor trauma versus left forearm peripheral IV site from previous admission # acute blood loss anemia - transfused 1 unit RBCs this admission, thereafter H&H has been stable. B12, folic acid, and Fe levels all wnl (although transferrin sat is 16%) CT L elbow obtained - negative for fracture doppler of left arm - no DVT; large hematoma seen in the left forearm - hemoglobin decreased a little bit to 8.1 however no evidence of acute bleeding or worsening in his left forearm hematoma based on symptoms or exam - continue apixaban and monitor exam. 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 still with sensation of ear fullness, serous effusions on exam, trial decongestant with Afrin x 3 days for eustachian tube dysfunction following viral illness Other chronic issues: # Chronic diastolic heart failure and HTN - EF 55-60% on echo 09/2023 - cont amlodipine, metoprolol, ARB. Remains euvolemic on exam # DM type 2 recent a1c 7.4% - BG controlled on glargine and premeal aspart - blood glucose reviewed and remains at goal # hypothyroid - continue levothyroxine pacemaker interrogation done hospital day #1 - no recent dysrhythmia to account for his fall at the personal skilled nursing on day of admission updated pt's daughter Lola Cooper by phone 05/21, 05/25 generalized weakness, fall - PT/OT recommendations reviewed - recommend rehab Care coord made referral to [facility] Admission and Anticipated Discharge Date Admission Date: May 20, 2024 Subjective He's doing fine, LUE slowly improving, not painful Continues with feeling of bilateral clogged ears Physical Exam Physical Exam: PHYSICAL EXAMINATION Last 24h vital signs reviewed, see documentation in flowsheet General: lying in bed HEENT: Normocephalic, atraumatic, pupils round and equal, sclerae anicteric, no conjunctival injection, moist mucus membranes otoscopic exam: Bilateral ear canals are clear of wax and there is no erythema or inflammation and no drainage, both tympanic membranes are shiny and bulging with clear fluid behind them, there is some bilateral tympanic membrane scarring the left side looks like it may have had a partial rupture in the past Lungs: clear to auscultation bilaterally no rhonchi rales or wheezing Heart: regular no murmurs rubs or gallops Abdomen: nondistended Extremities: Warm, dry, well-perfused. left forearm appears improved today continues with dark purple evolving ecchymosis of forearm and medial upper arm, left forearm with swelling that has softened and flattened out there is some pitting edema as well, hand remains well-perfused and warm. no change to exam 05/27 except continuing to soften Neuro: Alert and oriented x 4, face symmetric, moves 4 extremities well Psych: Normal affect and behavior Results & Data Results & Data Vital Signs (Past 12 Hours) Vital Signs Temp Pulse Resp BP Pulse Ox O2 Del Method 05/27/24 15:59 98.1 F 58 L 18 134/69 95 Room Air 05/27/24 08:00 Room Air 05/27/24 07:13 98.1 F 60 18 144/75 H 98 Room Air PG Care Time/CCT Total # of Minutes Spent Total Time Spent with Patient: Total time spent is greater than 50% in coordination of care (as documented) at patient's floor/unit and/or counseling patient: Coding Level of Care Code 61175 SUB INP/OBS CARE 2/35MIN Diagnoses Hematoma of left forearm S50.12XA Mass of head of pancreas K86.89 CHF (congestive heart failure) I50.9 Acute blood loss anemia D62 Chronic kidney disease, stage IV (severe) N18.4
[2024-05-27] MEDS: OXYMETAZOLINE 0.05% 30 ML BTL SCH (18:34)
[2024-05-28] MEDS ORDERED: CIPRO 0.3%/DEXAMETHASONE 0.1% OTIC SUSP 7.5ML OTB SCH (14:15)
[2024-05-28] MEDS: ACETAMINOPHEN 325 MG TAB PO PRN (17:03)
--- NOTE | 2024-05-28 17:42 | Hospitalist Progress Note ---
Date of Service May 28, 2024 Assessment & Plan (1) Hematoma of left forearm: (2) Mass of head of pancreas: (3) CHF (congestive heart failure): (4) Acute blood loss anemia: (5) Chronic kidney disease, stage IV (severe): Plan 79-year-old male with history of PE, type II DM, CHF, chronic anemia, neuropathy, pacemaker, and history of cholecystectomy with recent hospital admission and discharged 05/19 after being found to have pancreas mass, suspected pancreatic cancer and influenza. He presents back after he felt tired and weak and slid to the floor at his [facility]. Did not have a "fall "did not strike his head or have any injury. Per facility and patient does have some bleeding from a polyp in his ear which he was picking at with a fingernail otherwise denies bleeding. # left forearm hematoma setting of apixaban and aspirin - potentially could have been minor trauma versus left forearm peripheral IV site from previous admission # acute blood loss anemia - transfused 1 unit RBCs this admission, thereafter H&H has been stable. B12, folic acid, and Fe levels all wnl (although transferrin sat is 16%) CT L elbow obtained - negative for fracture doppler of left arm - no DVT; large hematoma seen in the left forearm - hemoglobin decreased a little bit to 8.1 however no evidence of acute bleeding or worsening in his left forearm hematoma based on symptoms or exam - has had no evidence of worsening despite several days of apixaban # Mass of the head of the pancreas - suspicious for malignancy - unable to do MRCP because his pacemaker is not compatible - he has some degree of biliary obstruction - CMP reviewed 05/26 - bilirubin has improved to 2.2 ( peak was 6.5 a few weeks ago), AST/ALT/alk phos all significantly downtrending - notified by family that EGD/EUS has been arranged at [facility] on 06/01, hold apixaban after Wednesday night, also continue holding aspirin, Keyla Vick # Hypercoagulable state, 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 05/28 it was reported to me that he had inserted something in his left ear. Left otoscopic exam notable for a plug of white material deep in the left ear canal, right otoscopic exam notable for hard impacted cerumen deep in the canal. I was able to remove a 1.5 cm x 0.3 cm plug of paper from his left ear canal using the otoscope and a cotton swab. there was a large amount of impacted cerumen behind that. I irrigated both the ears multiple times with normal saline, fairly significant amount of wax pieces came out of the left ear and minimal from the right. Repeat exam on left with intact tympanic membrane clear effusion, no significant amount of cerumen, 2 white patches in ear canal, erythematous canal. right sided exam erythematous ear canal, some impacted cerumen still present deep in the canal, tympanic membrane intact with clear effusion - continue Afrin for eustachian tube dysfunction, bilateral serous effusions - continue Ciprodex drops bilaterally for 7 days for bilateral mild otitis externa - the 2 white patches in the left ear canal appear potentially consistent with Patricia infection, Aspergillus is reported to look like paper could also be that. we will discuss with pharmacist however I do not see any antifungal otic drops on our formulary, nor do I see 1% clotrimazole solution which can also be used. there are voriconazole eye drops Other chronic issues: # Chronic diastolic heart failure and HTN - EF 55-60% on echo 09/2023 - cont amlodipine, metoprolol, ARB. Remains euvolemic on exam # DM type 2 recent a1c 7.4% - BG controlled on glargine and premeal aspart - blood glucose reviewed and remains at goal # hypothyroid - continue levothyroxine pacemaker interrogation done hospital day #1 - no recent dysrhythmia to account for his fall at the personal residential on day of admission updated pt's daughter Lola Cooper by phone 05/21, 05/25 updated his daughter Carolyne at bedside 05/28 generalized weakness, fall - PT/OT recommendations reviewed - recommend rehab Care coord made referral to [facility]. medically ready for discharge to SNF Admission and Anticipated Discharge Date Admission Date: May 20, 2024 Subjective today his daughter is visiting from [place] and she and Gerry's nurse reported to me that he had inserted something into his left ear that was white and looked like a pencil eraser he reports that he may have put something in his ear last night because he wanted to keep the eardrops in he continues to have a feeling of being clogged in both ears and ear pain though reports some mild improvement on the decongestant Physical Exam 2 Physical Exam: PHYSICAL EXAMINATION Last 24h vital signs reviewed, see documentation in flowsheet General: lying in bed watching TV with the volume extremely loud HEENT: serial otoscopic examsee below Lungs: clear to auscultation bilaterally no rhonchi rales or wheezing Heart: regular no murmurs rubs or gallops Abdomen: nondistended nontender Extremities: Warm, dry, well-perfused. left forearm hematoma continues to improve getting progressively softer and flatter Neuro: Alert and oriented x at least basic situation extremely hard of hearing, face symmetric, moves 4 extremities well Psych: Normal affect and behavior Results & Data Results & Data Vital Signs (Past 12 Hours) Vital Signs Temp Pulse Resp BP Pulse Ox O2 Del Method 05/28/24 14:05 97.9 F 64 17 135/67 99 Room Air 05/28/24 08:15 Room Air 05/28/24 06:50 98.1 F 61 18 125/66 98 Room Air Laboratory Results 05/26/24 08:30 05/26/24 08:30 PG Care Time/CCT Total # of Minutes Spent Total Time Spent with Patient: I personally spent: 60 minutes today on clinical care activities including: reviewing chart notes and vital signs examining and counseling the patient counseling the patient's family otoscopic exams, removal of foreign body from left ear canal, multiple attempts at irrigation as documented above writing orders documentation Coding Level of Care Code 44567 SUB INP/OBS CARE 3/50MIN Diagnoses Hematoma of left forearm S50.12XA Mass of head of pancreas K86.89 CHF (congestive heart failure) I50.9 Acute blood loss anemia D62 Chronic kidney disease, stage IV (severe) N18.4
[2024-05-29 06:55] VITALS: TEMP 97.5
[2024-05-29 08:18] VITALS: BP 130/72; PULSE 64; RESP 14; O2SAT 96
[2024-05-29] MEDS: LANTUS PER UNIT CHARGE SC SCH (08:54)
--- NOTE | 2024-05-29 19:18 | Discharge Summary ---
Discharge Summary Date of Service May 29, 2024 Principal Dx & Hospital Course #1 = Principal Diagnosis (1) Hematoma of left forearm: (2) Mass of head of pancreas: (3) CHF (congestive heart failure): (4) Acute blood loss anemia: (5) Chronic kidney disease, stage IV (severe): Plan 79-year-old male with history of PE, type II DM, CHF, chronic anemia, neuropathy, pacemaker, and history of cholecystectomy with recent hospital admission and discharged 05/19 after being found to have pancreas mass, suspected pancreatic cancer and influenza. He presents back after he felt tired and weak and slid to the floor at his [facility]. Did not have a "fall "did not strike his head or have any injury. Per facility and patient does have some bleeding from a polyp in his ear which he was picking at with a fingernail otherwise denies bleeding. He was on apixaban, found to have ABLA and left forearm hematoma. This has improved and he's tolerated a week of apixaban with continued improvement. Hospitalizaton prolonged because awaiting placement. Has EGD/EUS scheduled 06/01 at [facility] for the pancreas mass. # left forearm hematoma setting of apixaban and aspirin - potentially could have been minor trauma versus left forearm peripheral IV site from previous admission # acute blood loss anemia - transfused 1 unit RBCs this admission, thereafter H&H has been stable. B12, folic acid, and Fe levels all wnl (although transferrin sat is 16%) CT L elbow obtained - negative for fracture doppler of left arm - no DVT; large hematoma seen in the left forearm - has had no evidence of worsening despite resuming apixaban 05/23 # Mass of the head of the pancreas - suspicious for malignancy - unable to do MRCP because his pacemaker is not compatible - he has some degree of biliary obstruction - CMP reviewed 05/26 - bilirubin has improved to 2.2 ( peak was 6.5 a few weeks ago), AST/ALT/alk phos all significantly downtrending - notified by family that EGD/EUS has been arranged at [facility] on 06/01, hold apixaban after Wednesday night, also continue holding aspirin, Jardifabio, Mounjaro. He will need transportation - brother notified us that he cannot transport # Hypercoagulable state, chronic right lower extremity DVT with history of extensive bilateral PE (11/2021) - hold apixaban after Wednesday night for EGD/EUS procedure 06/01, resume when OK with GI post procedure # CKD stage 4 - creatinine improved to 2.18 resumed ARB # impacted cerumen, bilateral mild otitis externa, possible fungal otitis externa left ear canal I irrigated both years 05/26 with large hard wax plug removed from left ear and hard wax pieces from right ear. 05/28 it was reported to me that he had inserted something in his left ear. Left otoscopic exam notable for a plug of white material deep in the left ear canal, right otoscopic exam notable for hard impacted cerumen deep in the canal. I was able to remove a 1.5 cm x 0.3 cm plug of paper from his left ear canal using the otoscope and a cotton swab. there was a large amount of impacted cerumen behind that. I irrigated both the ears multiple times with normal saline, fairly significant amount of wax pieces came out of the left ear and minimal from the right. Repeat exam on left with intact tympanic membrane clear effusion, no significant amount of cerumen, 2 white patches in ear canal, erythematous canal. right sided exam erythematous ear canal, some impacted cerumen still present deep in the canal, tympanic membrane intact with clear effusion - was treated with Afrin for eustachian tube dysfunction, bilateral serous effusions - continue Ciprodex drops bilaterally for 7 days for bilateral mild otitis externa - the 2 white patches in the left ear canal appear potentially consistent with Patricia infection, Aspergillus is reported to look like paper could also be that. Consider otic antifungal drops, but there are none on the hospital formulary - refer to ENT if not improving Other chronic issues: # Chronic diastolic heart failure and HTN - EF 55-60% on echo 09/2023 - cont amlodipine, metoprolol, ARB. Remains euvolemic on exam # DM type 2 recent a1c 7.4% - BG controlled on glargine and premeal aspart - blood glucose reviewed and remains at goal # hypothyroid - continue levothyroxine pacemaker interrogation done hospital day #1 - no recent dysrhythmia to account for his fall at the [facility] on day of admission updated pt's daughter Lola Cooper by phone 05/21, 05/25 updated his daughter Carolyne at bedside 05/28 generalized weakness, fall - PT/OT recommendations reviewed - recommend rehab Care coord made referral to centre care. medically ready for discharge to SNF Notes For Next Care Provider hold apixaban, aspirin, Keyla Vick until after EGD/EUS 06/01 at [facility] Admission HPI Per Admitting Provider Gerry is a 79-year-old male with past medical history of PE, type II DM with labile blood sugars, CHF, chronic anemia, neuropathy, and history of cholecystectomy with recent hospital admission and discharged 05/19 after being found to have suspected new pancreatic cancer, influenza, and an acute versus subacute DVT. He presents back after he felt tired and weak and slid to the floor at his facility overnight. Did not have a "fall "did not strike his head or have any injury. Per facility and patient does have some bleeding from a polyp in his ear which she was picking at with a fingernail otherwise denies bleeding. No melena/hematochezia but does have a downtrending hemoglobin from prior. BUN is stable from prior measurements. Gerry seen at the bedside. He reports that he is felt more fatigued lightheaded and tired for a few days. Does not currently have any pain and is not lightheaded in bed but is more fatigued when he tries to move around. He reports he has not had any abdominal pain, nausea, vomiting, melena, or hematochezia. He does have a hematoma on his left arm which developed over the last few days in the hospital. He does not think that this is expanding, but has darkened and has changed in color over the last day or 2. Denies fever chills or sweats. No chest pain or chest pressure. He reports his flu symptoms are improved, he has a little bit of a dry cough and occasional wheezing but overall greatly improved and has not had any worsening shortness of breath. he reports last night he just felt tired and slid to the ground but did not actually strike his head or have an injury. He is anticoagulated for recent DVT. He reports he is pending a workup for potential pancreatic cancer, and is interested in all treatments available for him at this time. Additionally discussed his past history of PE and DVT and bleeding. He reports that he is not able to be on a blood thinner would want to be considered for a IVC filter especially if PE was likely to significantly worsen his quality of life and or length of life. He reports he has not had an IVC filter before. He reports he does not have any change/new swelling in his lower extremities or calf pain. No Denies hematuria, dysuria, polyuria. Reports he has been tired and eating and drinking a little bit less today He reports he would like to pursue all treatments available for his current conditions however if he were to become so ill that his heart or breathing stopped completely (he would not code) he would not want CPR/intubation/ventilation to try to bring him back. Confirms DNR/DNI status. Medical History: Reviewed Medications: Reviewed Surgical History: Reviewed Family history: Reviewed Allergies: Reviewed Social History: Reviewed Code Status: DNR/DNI Discharge Exam PHYSICAL EXAMINATION Last 24h vital signs reviewed, see documentation in flowsheet General: awake in bed Lungs: clear to auscultation bilaterally no rhonchi rales or wheezing Heart: regular no murmurs rubs or gallops Abdomen: nondistended nontender Extremities: Warm, dry, well-perfused. left forearm hematoma continues to improve getting progressively softer and flatter. L arm edema has resolved. Neuro: Alert and oriented x at least basic situation extremely hard of hearing, face symmetric, moves 4 extremities well Psych: Normal affect and behavior Discharge Plan Discharge Items Patient Disposition: Transfer Alf Fac Reason For Visit: WEAKNESS, ANEMIA Discharge Diagnosis: LUE / forearm hematoma, ABLA, pancreas mass Activity: Resume your previous activity Weightbearing: Full weightbearing Non-emergency contact: Primary Care Provider and Vp Of Customer Experience Strategy Call non-emergency contact if: you have any medication questions and your symptoms worsen Follow-up/Referrals: Alek Vera DO [Primary Care Provider] - Diet: Carb Consistent or DM2 Addtl Attending Provider Instructions: EGD/EUS scheduled 05/01 at [facility]. Time has not been set yet, please call and confirm. Family stated that they could not transport, so transportation will need to be arranged Right arm hematoma is stable and resolving. Had been on apixaban all last week without any worsening. Currently apixaban and aspirin held for GI procedure , but may resume post-procedure when ok per golf club maker Arelis also held until after GI procedure NPO after midnight 04/30 for procedure Diabetic diet Blood glucose checks qAC Medium dose premeal Aspart insulin sliding scale, glargine PT and OT evaluate and treat Bilateral impacted cerumen - irrigated 05/26 and 05/28 with significant improvement Cipro/dex ear drops for 7 days for bilateral otitis externa Possible fungal otitis externa left ear canal based on exam 05/28 - consider course of antifungal drops for left ear - not available on hospital formulary Very hard of hearing at baseline ENT referral if ear complaints not improving Pending Studies at Discharge: No Stand-Alone Forms: [facility] Skilled Items Patient informed of condition?: Yes DNR: Yes Discharge Level of Care: Skilled Communicable Disease: No Discharge Prognosis: Improving Lines: None Urinary Catheter: No Medications and DC Order Prescriptions: New ciprofloxacin-dexamethasone 0.3-0.1 % Drops,Suspension 4 drp OTL BID Qty: 0 0RF insulin glargine [Lantus U-100 Insulin] 100 unit/mL Solution 23 unit SC QAM Qty: 0 0RF Continued (DME) FreeStyle Maisha 2 Sensor Kit See Rx Instructions .Route Qty: 2 11RF Rx Instructions: Change every 14 days pantoprazole 40 mg tablet,delayed release (DR/EC) 40 mg PO QAM nitroglycerin 0.4 mg tablet, sublingual 0.4 mg sublingual Q5M PRN (Reason: Chest Pain) Rx Instructions: do not exceed 3 doses per episode ondansetron 4 mg tablet,disintegrating 4 mg PO Q8H PRN (Reason: Nausea And Vomiting) (DME) sharpmartha bin-insulin syrin-needl 1 mL 30 gauge x 5/16" syringe See Dose Instructions .ROUTE .MEDSUPPLY Qty: 1 Rx Instructions: As directed (DME) lancets [OneTouch Delica Plus Lancet] 30 gauge misc See Rx Instructions .ROUTE .MEDSUPPLY Rx Instructions: Test blood sugar once daily PRN (DME) FreeStyle Maisha 2 [place] Misc See Rx Instructions .Route Rx Instructions: As directed (DME) pen needle, diabetic [BD Ultra-Fine Micro Pen Needle] 32 gauge x 1/4" needle See Rx Instructions .Route Qty: 100 3RF Rx Instructions: use twice daily amlodipine [Norvasc] 5 mg Tablet 5 mg PO QAM Qty: 30 2RF sennosides [Senokot] 8.6 mg Tablet 17.2 mg PO QAM Qty: 60 2RF metoprolol succinate 50 mg tablet extended release 24 hr 50 mg PO BID Qty: 60 2RF insulin lispro [Admelog SoloStar U-100 Insulin] 100 unit/mL insulin pen 1 sliding scale dose subcut USEASDIRECTD Qty: 0 0RF Rx Instructions: SS before meals and at Bedtime: 151-200=4 units; 201-250=6 units; 251- 300=10 units; 301-350 = 12 units; 351-400= 15 units; 401 or greater give 15 units and call physician. atorvastatin 80 mg tablet 80 mg PO HS potassium chloride 10 mEq tablet extended release 10 meq PO QAM calcitriol 0.5 mcg capsule 0.5 mcg PO QAM gabapentin 300 mg capsule 300 mg PO HS furosemide 20 mg tablet 10 mg PO QAM sertraline 50 mg tablet 75 mg PO QAM terazosin 10 mg capsule 10 mg PO QAM Rx Instructions: TAKE 1 CAPSULE DAILY levothyroxine 112 mcg capsule 112 mcg PO QAM magnesium oxide 400 mg magnesium tablet 400 mg PO QAM losartan 50 mg tablet 50 mg PO QAM polyethylene glycol 3350 [ClearLax] 17 gram Powder In Packet 17 g PO QAM cholestyramine-aspartame [Prevalite] 4 gram Powder In Packet 1 ea PO BID Qty: 60 0RF Held Eliquis 5 mg tablet 5 mg PO BID Qty: 180 1RF Hold Instructions: Resume on 06/03/24. Rx Instructions: 5 mg po BID aspirin 81 mg Tablet,Delayed Release (Dr/Ec) 81 mg PO QAM Hold Instructions: Resume on 06/03/24. Jardiance 25 mg tablet 25 mg PO UD Hold Instructions: Resume on 06/03/24. Rx Instructions: Suspended through 06/03/24. Original Directions: 25mg by mouth in the morning Mounjaro 5 mg/0.5 mL pen injector 5 mg SUBCUT UD Hold Instructions: Resume on 06/03/24. Rx Instructions: Currently on hold/suspended through 06/03/24. Original Directions: 5mg once weekly on Wed Discontinued Ear Wax Removal Drops 6.5 % Drops 5 - 10 drp OTIC (EAR) BID insulin degludec [Tresiba FlexTouch U-100] 100 unit/mL (3 mL) insulin pen 0 unit subcut QAM Hold Instructions: Provider's Order Blood sugars are controlled. will hold until blood sugars rise. may need a lower dose. Rx Instructions: Currently on hold/suspended through 06/03/24. Original Directions: 40units subcut every morning ewdiedst-rkqjsnmym-iceqhrkrft 1.75 mg-10,000 unit-0.025mg/mL drops See Rx Instructions .ROUTE .COMPLEX Rx Instructions: Instill 2 drops into affected ear TID Discharge Orders: Discharge Order (Routine); Ordered 05/29/24 Ordered By: Bonnie Fulton/Other Patient Handouts: Anemia Admission Data Admit Date/Time: 05/20/24 15:26 Attending Provider: Bonnie Lynch Admit Provider: Raza Carias Primary Care Provider: Alek Vera Other Providers: Raza Carias; [facility]; [place] Other Interventions: Discharge Summary Assessment (RN) Last Done: 05/29/24 12:28 Hospital Stay Data Consultations 05/20/24 14:08 ED Decision to Admit Stat Diagnostic Imagining Performed 05/20/24 11:30 CT cervical spine wo con Stat CT head/brain wo con Stat 05/20/24 15:50 CT abd pelvis wo con Stat 05/21/24 11:06 CT elbow LT wo con Routine 05/21/24 19:28 US venous doppler UE LT Routine Pending Results Patient Have Any Pending Studies at Discharge: No Discharge Instructions Given to Patient (Per Discharging Provider) EGD/EUS scheduled 05/01 at [facility]. Time has not been set yet, please call and confirm. Family stated that they could not transport, so transportation will need to be arranged Right arm hematoma is stable and resolving. Had been on apixaban all last week without any worsening. Currently apixaban and aspirin held for GI procedure , but may resume post-procedure when ok per golf club maker Arelis also held until after GI procedure NPO after midnight 04/30 for procedure Diabetic diet Blood glucose checks qAC Medium dose premeal Aspart insulin sliding scale, glargine PT and OT evaluate and treat Bilateral impacted cerumen - irrigated 05/26 and 05/28 with significant improvement Cipro/dex ear drops for 7 days for bilateral otitis externa Possible fungal otitis externa left ear canal based on exam 05/28 - consider course of antifungal drops for left ear - not available on hospital formulary Very hard of hearing at baseline ENT referral if ear complaints not improving Total Time Total Time Spent Total Time Spent (In Minutes): I personally spent: 40 minutes today on clinical care activities including: reviewing chart notes and vital signs discussion with rn long term care examining and counseling the patient writing orders writing prescriptions, discharge instructions documentation Coding Level of Care Code 82114 INP/OBS DISCH >30 MIN Diagnoses Hematoma of left forearm S50.12XA Mass of head of pancreas K86.89 CHF (congestive heart failure) I50.9 Acute blood loss anemia D62 Chronic kidney disease, stage IV (severe) N18.4
--- NOTE | 2024-05-31 11:32 | Coding Query ---
CODING QUERY To promote full compliance with coding requirements relating to patient care, provider participation is requested in all cases of director of revenue cycle management uncertainty. Please assist us with the question(s) below: Coding Question(s): There is documentation of left forearm hematoma through the record, with documentation, as of the Discharge Summary of, "left forearm hematoma setting of apixaban and aspirin - potentially could have been minor trauma versus left forearm peripheral IV site from previous admission". Please specify below, in your clinical opinion, regarding the left forearm hematoma documentation of, "setting of apixaban and aspirin", and the documentation, could have been, "left forearm IV site from previous admission: Regarding Left Forearm Hematoma setting of apixaban and aspirin: (x ) possible due to coagulation disorder caused by apixaban and aspirin ( ) Not due to apixaban and aspirin use ( ) Other: Please Specify Regarding Left Forearm Hematoma - could have been left forearm IV site from previous admission: (x ) possible complication of the IV site from infusion procedure (x ) possible due to coagulation disorder caused by apixaban and aspirin ( ) Other: Please Specify Physician's Response(s): Thank you Elisa Cruz Principal Diagnosis: "that condition established after study, to be chiefly responsible for occasioning the admission of the patient to the hospital for care." Co-Existing Principal Diagnosis: "when two or more diagnoses equally meet the criteria for principal diagnosis as determined by the circumstances of admission, diagnostic work up, and/or therapy provided, and the Alphabetic Index, Tabular List, or another coding guideline does not provide sequencing direction, any one of the diagnoses may be sequenced first." "When the physician has documented what appears to be a current diagnosis in the body of the record, but has not included the diagnosis in the final diagnostic statement, the physician should be asked whether the diagnosis should be added." (Source Coding [facility] 2 QTR90. p3-4) [facility]
== END 2024-05-29 13:45 | DRG 813 ==
LOC: ED 11:05 → EDINP 15:26 → SUATTDRO 15:26 → 2S 19:50 → 3E 05-27 17:57

== ENCOUNTER 2024-06-14 10:45 | Inpatient (IN) ==
--- NOTE | 2024-06-14 11:21 | Emergency Department Note ---
Impression & Plan Incarcerated hernia Admit ED Provider Note HPI: History obtained from patient, bedside RN via EMS report. The patient is a 79-year-old gentleman with history of chronic kidney disease, DVT, PE, on Eliquis, hypertension, type 2 diabetes, CHF, presents to the emergency department from [facility] over concern for vomiting over the past several days. Patient is also noted to have a large central abdominal hernia that he states is tender to palpation. Per report they were concerned the patient might have a small bowel obstruction and therefore he was sent to the ED to be assessed. On arrival here to the ED the patient is stable, he appears to be in no acute distress, he does have a large palpable umbilical hernia that is tender to palpation. ROS: - Per HPI Differential Diagnosis: Incarcerated umbilical hernia, small bowel obstruction, viral gastroenteritis, upper GI bleed, amongst other potential pathologies. *Outpatient medications and allergy history reviewed. PE: General: Alert, morbidly obese HEENT: Normocephalic, trachea midline Eyes: Extraocular eye movement is intact, no scleral erythema Pulmonary: Clear to auscultation bilaterally, no wheezing Cardio: Regular rate and rhythm GI: Abdomen is soft to palpation, there is a large tender mass consistent with umbilical hernia in the midline abdomen that is not reducible : No suprapubic tenderness MSK: No evidence of trauma or malformation of the extremities, no edema Skin: No evidence of rash Neuro: Alert, no focal deficits Psychiatric: Cooperative INDEPENDENT INTERPRETATIONS: gambling monitor: (As interpreted by myself): - An order was placed for continuous cardiac monitoring - Patient was noted to be in a paced rhythm with a rate of 90 EKG: (As interpreted by myself): Rate: 64 Rhythm: AV dual paced rhythm Intervals: QRS 162 ms, QTc 536 ms, CT within normal limits ST changes: No ST elevation Time: 1053 Chest x-ray: (As interpreted by myself): No acute process Interventions provided in ED: -IV fluid bolus, IV Zofran Medical Decision Making: IV was established and lab work obtained, patient was placed on cardiac monitor technician. Lab work shows a leukocytosis of 13.4, hemoglobin is stable at 10.3, platelet count is normal, CMP shows creatinine of 1.96 which is the patient's baseline. Lactic acid is mildly elevated at 2.4 for which the patient was given IV fluids. Urinalysis shows trace ketones, no infection. CT imaging of the abdomen pelvis was obtained and shows evidence of a small bowel obstruction with an ileal loop within the umbilical hernia with surrounding mesenteric stranding. I did consult general surgery and I did discuss the patient's presentation and CT imaging results with the midlevel provider, Hector Ward, and Dr. Benson, the attending. Following this conversation decision was made that the patient would be transferred to the operating room for definitive care. Patient was admitted to the medicine service following my discussion with Dr. Carias the on-call hospitalist. Patient was in agreement to this plan and he was admitted in stable condition for further management. Consultants/Discussions held with other healthcare providers: -General Surgery, Dr. Benson -Hospitalist, Dr. Carias Disposition discussion held by myself with: -Patient Diagnosis: 1. Incarcerated umbilical hernia with small bowel obstruction, acute 2. Leukocytosis, acute 3. Lactic acidosis, acute 4. Chronic kidney disease Disposition: Admission Adalberto Han DO Emergency Medicine Past Med/Surg History Problem List (Updated 06/14/24 @ 17:04 by Adalberto Han DO) Incarcerated hernia (Acute) Small bowel obstruction Incarcerated ventral hernia Recurrent falls (Acute) Hypomagnesemia (Acute) Mass of head of pancreas Acute blood loss anemia Chronic kidney disease, stage IV (severe) (Acute) Hematuria (Acute) Hematoma of left forearm (Acute) Generalized weakness (Acute) Anemia (Acute) Biliary obstruction DVT (deep venous thrombosis) Swelling of right lower extremity (Acute) Elevated LFTs (Acute) Generalized weakness (Acute) Abnormal LFTs (Acute) Jaundice (Acute) History of DVT (deep vein thrombosis) Acute metabolic encephalopathy Scalp abscess (Acute) Cellulitis of scalp (Acute) Right otitis media Finger pain, left Encounter for screening colonoscopy Toe injury Traumatic loss of toenail of right great toe Vitamin D deficiency Bilateral pulmonary embolism Lumbar back pain with radiculopathy affecting left lower extremity Albuminuria Hypertension Diabetes type 2, uncontrolled Pulmonary nodule Sleep apnea (Chronic) Secondary hyperparathyroidism (Chronic) Morbid obesity (Chronic) Lumbar spinal stenosis (Chronic) Hypothyroidism (Chronic) Dyslipidemia (Chronic) Dysesthesia (Chronic) Diabetic peripheral 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) Depression (Chronic) Chronic reflux esophagitis (Chronic) Cardiac pacemaker (Chronic) CHF (congestive heart failure) (Chronic) Arteriosclerotic cardiovascular disease (Chronic) Anemia (Chronic) Background diabetic retinopathy associated with type 2 diabetes mellitus Hypomagnesemia Chronic anemia (Acute) Medical History Chronic kidney disease, stage III (moderate) Acute respiratory failure JUANPABLO (acute kidney injury) Colon polyps Elevated transaminase level Hematuria Tinea pedis of both feet Vitamin D deficiency Surgical History History of incision and drainage (12/15/23) Incision and Drainage of Scalp Abscess x 2(Not Applicable) - Sarbjit Bai DO History of colonoscopy History of tonsillectomy History of mandibular surgery History of cholecystectomy History of coronary artery stent placement History of cardiac cath History of cataract surgery Family History Father Lung cancer Brother Lung disease Lung cancer Denies family history of Ovarian cancer Prostate cancer Myocardial infarction Breast cancer Colorectal cancer Social History Smoking Status: Never smoker Age Started Using Tobacco: 20; Age Quit Using Tobacco: 21; Second Hand Exposure: Yes; Hx Alcohol Use: No Hx Substance Use: No Preferred Language: Bahraini Communication Ability: Effective Visual Impairment: No Limitations Hearing Ability: Use of Hearing Aid Branch 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 [employer] 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 Required: No Beliefs That Will Affect Care: None marital status: / Current Living Situation: Personal Care Facility Current Living Situation Comment: Di current occupational status: retired 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 How many Children do You have: 2 Feels Safe at Home: Yes Childhood Exposure to Second-Hand Smoke: No Diet: regular Diet Comment: Regular Diet caffeine: No during the past year weight has: remained stable Dental Care, Regularly: No Physical Activity Frequency: Does not Exercise Seatbelt Use: sometimes Sunscreen Use: No Assistive Devices: Wheelchair Allergies Allergies Allergy/AdvReac Type Severity Reaction Status Date / Time cefaclor AdvReac Intermediate RASH Verified 06/14/24 14:05 oxycodone AdvReac Intermediate "I GET ALL Verified 06/14/24 14:05 GOOFY" Home Meds Home Medications Medication Instructions Recorded Confirmed sharps container-insulin syringe ##1 10/05/18 01/12/24 and needle 1 mL 30 gauge x 5/16" aspirin 81 mg tablet,delayed 81 mg PO QAM 05/28/21 06/06/24 release flash glucose scanning reader 07/04/21 01/12/24 (FreeStyle Maisha 2 Harrison) lancets 30 gauge (OneTouch Delica 07/04/21 01/12/24 Plus Lancet) nitroglycerin 0.4 mg sublingual 0.4 mg sublingual Q5M PRN Chest 11/11/23 06/06/24 tablet Pain ondansetron 4 mg disintegrating 4 mg PO Q8H PRN Nausea And Vomiting 11/11/23 06/06/24 tablet pantoprazole 40 mg tablet,delayed 40 mg PO QAM 11/11/23 06/06/24 release empagliflozin 25 mg tablet 25 mg PO DAILY 12/11/23 06/06/24 (Jardiance) tirzepatide 5 mg/0.5 mL 5 mg subcut WK 12/11/23 06/06/24 subcutaneous pen injector (Keyla) atorvastatin 80 mg tablet 80 mg PO HS 05/09/24 06/06/24 calcitriol 0.5 mcg capsule 0.5 mcg PO QAM 05/09/24 06/06/24 furosemide 20 mg tablet 10 mg PO QAM 05/09/24 06/06/24 gabapentin 300 mg capsule 300 mg PO HS 05/09/24 06/06/24 levothyroxine 112 mcg capsule 112 mcg PO QAM 05/09/24 06/06/24 magnesium oxide 400 mg PO QAM 05/09/24 06/06/24 potassium chloride 10 mEq 10 meq PO QAM 05/09/24 06/06/24 tablet,extended release sertraline 50 mg tablet 75 mg PO QAM 05/09/24 06/06/24 terazosin 10 mg capsule 10 mg PO QAM 05/09/24 06/06/24 losartan 50 mg tablet 50 mg PO QAM 05/14/24 06/06/24 polyethylene glycol 3350 17 gram 17 g PO QAM 05/14/24 06/06/24 oral powder packet (ClearLax) acetaminophen 325 mg tablet 650 mg PO Q6H PRN pain/temp>100 06/06/24 06/06/24 carbamide peroxide 6.5 % ear drops 5 drp otic (ear) BID 06/06/24 06/06/24 (Ear Wax Drops) ciprofloxacin 0.3 %-dexamethasone 4 drp OTL BID 06/06/24 06/06/24 0.1 % ear drops,suspension ciprofloxacin HCl 500 mg tablet 500 mg PO BID 06/06/24 06/06/24 insulin degludec 100 unit/mL (3 40 unit subcut DAILY 06/06/24 06/06/24 mL) subcutaneous pen (Tresiba FlexTouch U-100 insulin) neomycin 1.75 mg-polymyxin 10,000 2 drp OPB TID 06/06/24 06/06/24 unit-gramicidin 0.025mg/mL eye drops Previous Rx's Medication Instructions Recorded flash glucose sensor (FreeStyle #2 ea 07/09/21 Maisha 2 Sensor kit) pen needle, diabetic 32 gauge x #100 ea 05/27/22 1/" (BD Ultra-Fine Micro Pen Needle) apixaban 5 mg tablet (Eliquis) 5 mg PO BID #180 tabs 04/28/23 amlodipine 5 mg tablet (Norvasc) 5 mg PO QAM #30 tabs 12/20/23 insulin lispro 100 unit/mL 1 sliding scale dose subcut 12/20/23 subcutaneous pen (Admelog SoloStar USEASDIRECTD #0 mL U-) metoprolol succinate 50 mg 50 mg PO BID #60 tabs 12/20/23 tablet,extended release 24 hr sennosides 8.6 mg tablet (Senokot) 17.2 mg (2 x 8.6 mg) PO QAM #60 12/20/23 tabs cholestyramine-aspartame 4 gram 1 ea PO BID #60 ea 05/19/24 oral powder for susp in a packet (Prevalite) Results & Data (ED) Vital Signs Vital Signs - 24 hr 06/14/24 10:55 06/14/24 11:18 06/14/24 13:20 Temperature 36.5 C Temperature Source Oral Pulse Rate 61 56 L Pulse Rate [Apical] Pulse Rate [Left Finger] 83 Pulse Rhythm Regular Pulse Rhythm [Apical] Pulse Strength Normal Respiratory Rate 18 20 Respiratory Effort / Characteristics Non-Labored Spontaneous Respiratory Depth Normal Respiratory Pattern Regular Blood Pressure 131/64 Blood Pressure [Right Arm] 144/70 H Blood Pressure Mean 86 Blood Pressure Mean [Right Arm] 94 Blood Pressure Position Sitting Blood Pressure Position [Right Arm] Pulse Oximetry 98 94 Oxygen Delivery Method Room Air Sepsis Recent Fever Within 48 Hours No Sepsis New/Unexplained Change in Mental Status No Sepsis Action Taken by Nursing No Action Required 06/14/24 14:05 Temperature 36.9 C Temperature Source Oral Pulse Rate Pulse Rate [Apical] 89 Pulse Rate [Left Finger] Pulse Rhythm Pulse Rhythm [Apical] Regular Pulse Strength Respiratory Rate 20 Respiratory Effort / Characteristics Non-Labored Spontaneous Normal for Patient Respiratory Depth Normal Respiratory Pattern Regular Blood Pressure Blood Pressure [Right Arm] 126/76 Blood Pressure Mean Blood Pressure Mean [Right Arm] 92 Blood Pressure Position Blood Pressure Position [Right Arm] Semi-fowlers Pulse Oximetry 96 Oxygen Delivery Method Room Air Sepsis Recent Fever Within 48 Hours Sepsis New/Unexplained Change in Mental Status Sepsis Action Taken by Nursing Laboratory Data 06/14/24 11:43 06/14/24 11:43 Lab Results 06/14/24 06/14/24 06/14/24 Range/Units 11:43 12:05 12:20 WBC 13.42 H (4.8-10.8) K/ul RBC 3.58 L (4.70-6.10) M/uL Hgb 10.3 L (14.0-18.0) g/dl Hct 32.3 L (42.0-52.0) % MCV 90.2 (80.0-100.0) fL MCH 28.8 (25.0-34.0) pg MCHC 31.9 L (32.0-36.0) g/dL RDW Std Deviation 63.0 H (36.4-46.3) fL RDW Coeff of Rito 19.0 H (11.5-14.5) % Plt Count 245 (130-400) K/uL MPV 10.5 (9.4-12.4) fL Immature Gran % (Auto) 0.7 % Neut % (Auto) 85.8 % Lymph % (Auto) 5.9 % Sharp % (Auto) 7.4 % Eos % (Auto) 0.1 % Baso % (Auto) 0.1 % Neut # (Auto) 11.51 H (1.40-6.50) K/uL Lymph # (Auto) 0.79 L (1.20-3.40) K/uL Sharp # (Auto) 0.99 H (0.11-0.59) K/uL Eos # (Auto) 0.02 (0.00-0.50) K/uL Baso # (Auto) 0.02 (0.00-0.20) K/uL Immature Gran # (Auto) 0.09 (0.01-0.20) K/uL PT 13.0 H (9.0-12.0) Seconds INR 1.2 H (0.9-1.1) APTT 37 H (21-31) Seconds PTT Ratio 1.4 Sodium 139 (136-145) mmol/L Potassium 4.4 (3.5-5.1) mmol/L Chloride 104 (98-107) mmol/L Carbon Dioxide 28 (21-32) mmol/L Anion Gap 7 (3-11) BUN 25 H (6-23) mg/dl Creatinine 1.96 H (0.6-1.4) mg/dl Est Cr Clr Drug Dosing 35.2 ml/min eGFR 34.57 BUN/Creatinine Ratio 12.8 (10-20) Glucose 78 (70-99(Fasting)) mg/dl POC Glucose (70-99) mg/dl Lactate 2.4 H* (0.4-2.0) mmol/L Calcium 9.0 (8.6-10.3) mg/dl Total Bilirubin 2.1 H (0.2-1.0) mg/dl AST 56 H (13-39) U/L ALT 50 (7-52) U/L Alkaline Phosphatase 745 H (34-104) U/L Total Protein 6.9 (6.0-8.3) gm/dl Albumin 3.2 L (3.4-5.0) gm/dl Globulin 3.7 (2.5-4.0) gm/dl Albumin/Globulin Ratio 0.9 (0.9-2) Urine Color Dark Yellow Urine Appearance Clear (Clear) Urine pH 5.0 (4.5-7.5) Ur Specific [place] 1.021 (1.000-1.030) Urine Protein 1+ H (Negative) Urine Glucose (UA) 2+ H (Negative) Urine Ketones Trace H (Negative) Urine Blood Negative (Negative) Urine Nitrite Negative (Negative) Urine Bilirubin 1+ H (Negative) Urine Urobilinogen Negative (Negative) Ur Leukocyte Esterase Negative (Negative) Urine WBC (Auto) 0-5 (0-5) /hpf Urine RBC (Auto) 0-2 (0-2) /hpf U Hyaline Cast (Auto) 0-2 (0-2) /lpf U Epithel Cells (Auto) 0-2 (0-2) /hpf Urine Bacteria (Auto) None Seen (None Seen) SARS-CoV-2, RNA, NAAT (NEGATIVE) 06/14/24 06/14/24 06/14/24 Range/Units 13:37 16:26 16:29 WBC (4.8-10.8) K/ul RBC (4.70-6.10) M/uL Hgb (14.0-18.0) g/dl Hct (42.0-52.0) % MCV (80.0-100.0) fL MCH (25.0-34.0) pg MCHC (32.0-36.0) g/dL RDW Std Deviation (36.4-46.3) fL RDW Coeff of Rito (11.5-14.5) % Plt Count (130-400) K/uL MPV (9.4-12.4) fL Immature Gran % (Auto) % Neut % (Auto) % Lymph % (Auto) % Sharp % (Auto) % Eos % (Auto) % Baso % (Auto) % Neut # (Auto) (1.40-6.50) K/uL Lymph # (Auto) (1.20-3.40) K/uL Sharp # (Auto) (0.11-0.59) K/uL Eos # (Auto) (0.00-0.50) K/uL Baso # (Auto) (0.00-0.20) K/uL Immature Gran # (Auto) (0.01-0.20) K/uL PT (9.0-12.0) Seconds INR (0.9-1.1) APTT (21-31) Seconds PTT Ratio Sodium (136-145) mmol/L Potassium (3.5-5.1) mmol/L Chloride (98-107) mmol/L Carbon Dioxide (21-32) mmol/L Anion Gap (3-11) BUN (6-23) mg/dl Creatinine (0.6-1.4) mg/dl Est Cr Clr Drug Dosing ml/min eGFR BUN/Creatinine Ratio (10-20) Glucose (70-99(Fasting)) mg/dl POC Glucose 57 L* 54 L* (70-99) mg/dl Lactate (0.4-2.0) mmol/L Calcium (8.6-10.3) mg/dl Total Bilirubin (0.2-1.0) mg/dl AST (13-39) U/L ALT (7-52) U/L Alkaline Phosphatase (34-104) U/L Total Protein (6.0-8.3) gm/dl Albumin (3.4-5.0) gm/dl Globulin (2.5-4.0) gm/dl Albumin/Globulin Ratio (0.9-2) Urine Color Urine Appearance (Clear) Urine pH (4.5-7.5) Ur Specific [place] (1.000-1.030) Urine Protein (Negative) Urine Glucose (UA) (Negative) Urine Ketones (Negative) Urine Blood (Negative) Urine Nitrite (Negative) Urine Bilirubin (Negative) Urine Urobilinogen (Negative) Ur Leukocyte Esterase (Negative) Urine WBC (Auto) (0-5) /hpf Urine RBC (Auto) (0-2) /hpf U Hyaline Cast (Auto) (0-2) /lpf U Epithel Cells (Auto) (0-2) /hpf Urine Bacteria (Auto) (None Seen) SARS-CoV-2, RNA, NAAT NEGATIVE (NEGATIVE) 06/14/24 Range/Units 16:46 WBC (4.8-10.8) K/ul RBC (4.70-6.10) M/uL Hgb (14.0-18.0) g/dl Hct (42.0-52.0) % MCV (80.0-100.0) fL MCH (25.0-34.0) pg MCHC (32.0-36.0) g/dL RDW Std Deviation (36.4-46.3) fL RDW Coeff of Rito (11.5-14.5) % Plt Count (130-400) K/uL MPV (9.4-12.4) fL Immature Gran % (Auto) % Neut % (Auto) % Lymph % (Auto) % Sharp % (Auto) % Eos % (Auto) % Baso % (Auto) % Neut # (Auto) (1.40-6.50) K/uL Lymph # (Auto) (1.20-3.40) K/uL Sharp # (Auto) (0.11-0.59) K/uL Eos # (Auto) (0.00-0.50) K/uL Baso # (Auto) (0.00-0.20) K/uL Immature Gran # (Auto) (0.01-0.20) K/uL PT (9.0-12.0) Seconds INR (0.9-1.1) APTT (21-31) Seconds PTT Ratio Sodium (136-145) mmol/L Potassium (3.5-5.1) mmol/L Chloride (98-107) mmol/L Carbon Dioxide (21-32) mmol/L Anion Gap (3-11) BUN (6-23) mg/dl Creatinine (0.6-1.4) mg/dl Est Cr Clr Drug Dosing ml/min eGFR BUN/Creatinine Ratio (10-20) Glucose (70-99(Fasting)) mg/dl POC Glucose 86 (70-99) mg/dl Lactate (0.4-2.0) mmol/L Calcium (8.6-10.3) mg/dl Total Bilirubin (0.2-1.0) mg/dl AST (13-39) U/L ALT (7-52) U/L Alkaline Phosphatase (34-104) U/L Total Protein (6.0-8.3) gm/dl Albumin (3.4-5.0) gm/dl Globulin (2.5-4.0) gm/dl Albumin/Globulin Ratio (0.9-2) Urine Color Urine Appearance (Clear) Urine pH (4.5-7.5) Ur Specific [place] (1.000-1.030) Urine Protein (Negative) Urine Glucose (UA) (Negative) Urine Ketones (Negative) Urine Blood (Negative) Urine Nitrite (Negative) Urine Bilirubin (Negative) Urine Urobilinogen (Negative) Ur Leukocyte Esterase (Negative) Urine WBC (Auto) (0-5) /hpf Urine RBC (Auto) (0-2) /hpf U Hyaline Cast (Auto) (0-2) /lpf U Epithel Cells (Auto) (0-2) /hpf Urine Bacteria (Auto) (None Seen) SARS-CoV-2, RNA, NAAT (NEGATIVE) Administered Medications Lactated Ringer's (Lr) 1,000 mls @ 15 mls/hr IV .Q24H DARREN Stop: 06/15/24 13:59 Last Infusion: 06/14/24 14:33 Dose: Infused Documented By: Admin: 06/14/24 14:31 Dose: 15 mls/hr Documented By: AMAN Clindamycin Phosphate (Cleocin/D5w) 900 mg in 50 mls @ 100 mls/hr IV PREOP DARREN Stop: 06/15/24 05:59 Last Admin: 06/14/24 14:35 Dose: 100 mls/hr Documented By: LEIDY Discontinued Medications Bupivacaine HCl/Epinephrine Bitart (Bupivacaine/Epinephrine 0.5% Mpf 1:200,000 30 Ml Vial) Confirm Administered Dose 30 ml .ROUTE .STK-MED ONE Stop: 06/14/24 13:53 Last Admin: 06/14/24 16:10 Dose: Not Given Documented By: MARTINEZ Clindamycin Phosphate (Clindamycin 900 Mg/D5w 50 Ml Bag) Confirm Administered Dose 900 mg IV .STK-MED ONE Stop: 06/14/24 14:24 Last Admin: 06/14/24 14:48 Dose: Not Given Documented By: AMAN Sodium Chloride (Nss) 500 mls @ 999 mls/hr IV .Q31M ONE Stop: 06/14/24 11:48 Last Admin: 06/14/24 11:58 Dose: 999 mls/hr Documented By: SMITHA Ioversol (Optiray 320 100ml) 94 ml IV ONCE ONE Stop: 06/14/24 12:47 Last Admin: 06/14/24 12:47 Dose: 94 ml Documented By: JULIAN Ondansetron HCl (Ondansetron Inj 2 Mg/Ml 2 Ml Vial) 4 mg IV NOW STA Stop: 06/14/24 11:22 Last Admin: 06/14/24 11:58 Dose: 4 mg Documented By: SMITHA Imaging Data Radiologist's Impression: Chest X-Ray 06/14/24 10:55 XR chest 1V portable CLINICAL HISTORY: n/v COMPARISON STUDY: 06/06/2024 FINDINGS: Single view chest is unchanged. There is no acute cardiopulmonary process identified. There is no airspace opacity or pleural effusion. There is no pneumothorax. The heart is mildly enlarged with left ventricular prominence. There is a dual- lead atrioventricular pacemaker entering from the right. IMPRESSION: Stable exam; no acute process ACT 112: Negative or not required by law. Electronically signed by: Melody Timmons M.D. 06/14/2024 11:36 AM Abdomen/Pelvis CT 06/14/24 11:18 CT OF THE ABDOMEN AND PELVIS WITH CONTRAST CLINICAL HISTORY: Mid abdominal pain. Hernia. COMPARISON STUDY: CT of the abdomen and pelvis May 20, 2024. TECHNIQUE: Following IV administration of 94 mL of Optiray, axial images of the abdomen and pelvis were obtained from the lung bases to the proximal femurs. Images were reviewed in the axial, sagittal, and coronal planes. IV contrast was administered without complication. Automated exposure control was utilized for the study. A dose lowering technique was utilized adhering to the principles of ALARA. CT DOSE: 1540.34 mGy.cm FINDINGS: A small right pleural effusion is noted. The distal esophagus is mildly dilated and fluid-filled. Pacer leads are partially imaged. The heart is enlarged. No pneumatosis, free air or portal venous gas is present. Pneumobilia is expected following placement of a common bile duct stent. Pancreatic stent is in place. There is no significant biliary or pancreatic ductal dilatation. Peripancreatic glandular atrophy. There is no peripancreatic fluid. Spleen and adrenal glands are unremarkable. There is moderate bilateral renal cortical thinning. Several suspected renal cysts are noted. The stomach is moderately distended and fluid-filled. The proximal to mid small bowel is also moderately dilated and fluid-filled. An ileal loop within an inguinal hernia is noted. Small bowel distal to the hernia is decompressed. There is associated mesenteric stranding and a small amount of ascites. No fluid collections are present. IMPRESSION: 1. Ileal loop within an umbilical hernia results in a small bowel obstruction. Associated ascites and mesenteric stranding. No pneumatosis, free air or portal venous gas. Distended stomach and distal esophagus. Nasogastric tube insertion might be considered. 2. Interval placement of a linear and pancreatic ductal stents. No biliary ductal dilatation. 3. Trace right pleural effusion. ACT 112: Negative or not required by law. Electronically signed by: Lane Mcgovern M.D. 06/14/2024 1:06 PM Discharge Plan Visit Data Chief Complaint: Abdominal Pain ED Provider: Adalberto Han Discharge Problem: Incarcerated hernia Patient Disposition: Admitted As Inpatient Discharge Instructions Interventions: ED Discharge Assessment Last Done: 06/14/24 13:54
--- NOTE | 2024-06-14 11:37 | XRay Report ---
XR chest 1V portable CLINICAL HISTORY: n/v COMPARISON STUDY: 06/06/2024 FINDINGS: Single view chest is unchanged. There is no acute cardiopulmonary process identified. There is no airspace opacity or pleural effusion. There is no pneumothorax. The heart is mildly enlarged with left ventricular prominence. There is a dual-lead atrioventricular pacemaker entering from the right. IMPRESSION: Stable exam; no acute process ACT 112: Negative or not required by law. Electronically signed by: Melody Timmons M.D. 06/14/2024 11:36 AM
[2024-06-14] MEDS: ONDANSETRON INJ 2 MG/ML 2 ML VIAL IV STA (11:58)
[2024-06-14] MEDS: SODIUM CHLORIDE 0.9% 500 ML IV ONE (11:58)
[2024-06-14 12:16] LABS: Basophils # (auto) 0.02 K/uL (0.00-0.20); Basophils % (auto) 0.1 %; Eosinophils # (auto) 0.02 K/uL (0.00-0.50); Eosinophils % (auto) 0.1 %; Hematocrit (blood only) 32.3 % (42.0-52.0); Hemoglobin 10.3 g/dl (14.0-18.0); Immature Granulocytes # (auto) 0.09 K/uL (0.01-0.20); Immature Granulocytes % (auto) 0.7 %; Lymphocytes # (auto) 0.79 K/uL (1.20-3.40); Lymphocytes % (auto) 5.9 %; Mean Corpuscular Hemoglobin 28.8 pg (25.0-34.0); Mean Corpuscular Hgb Conc 31.9 g/dL (32.0-36.0); Mean Corpuscular Volume 90.2 fL (80.0-100.0); Mean Platelet Volume 10.5 fL (9.4-12.4); Monocytes # (auto) 0.99 K/uL (0.11-0.59); Monocytes % (auto) 7.4 %; Neutrophils # (auto) 11.51 K/uL (1.40-6.50); Neutrophils % (auto) 85.8 %; Platelet Count 245 K/uL (130-400); Red Blood Count 3.58 M/uL (4.70-6.10); White Blood Count 13.42 K/ul (4.8-10.8)
[2024-06-14 12:30] LABS: Albumin Globulin Ratio 0.9 (0.9-2); Albumin Level 3.2 gm/dl (3.4-5.0); BUN Creatinine Ratio 12.8 (10-20); Bilirubin,Total 2.1 mg/dl (0.2-1.0); Creatinine Clr Calc Pharmacy 35.2 ml/min; Globulin 3.7 gm/dl (2.5-4.0); Potassium 4.4 mmol/L (3.5-5.1); Total Protein 6.9 gm/dl (6.0-8.3)
[2024-06-14 12:39] LABS: INR 1.2 (0.9-1.1); Partial Thromboplastin Ratio 1.4; Partial Thromboplastin Time 37 Seconds (21-31)
[2024-06-14 12:44] LABS: Appearance Urine Clear (Clear); Bacteria Urine Automated None Seen (None Seen); Bilirubin Urine 1+ (Negative); Blood Urine Negative (Negative); Cast Urine Automated 0-2 /lpf (0-2); Color Urine Dark Yellow; Epithelial Cell Urine Auto 0-2 /hpf (0-2); Glucose Urine UA 2+ (Negative); Ketones Urine Trace (Negative); Leukocyte Esterase Urine Negative (Negative); Nitrite Urine Negative (Negative); Protein Urine 1+ (Negative); RBC Urine Automated 0-2 /hpf (0-2); Specific Gravity Urine 1.021 (1.000-1.030); Urobilinogen Urine Negative (Negative); WBC Urine Automated 0-5 /hpf (0-5)
[2024-06-14] MEDS: OPTIRAY 320 100ml IV ONE (12:47)
--- NOTE | 2024-06-14 13:09 | CT Scan Report ---
CT OF THE ABDOMEN AND PELVIS WITH CONTRAST CLINICAL HISTORY: Mid abdominal pain. Hernia. COMPARISON STUDY: CT of the abdomen and pelvis May 20, 2024. TECHNIQUE: Following IV administration of 94 mL of Optiray, axial images of the abdomen and pelvis we re obtained from the lung bases to the proximal femurs. Images were reviewed in the axial, sagittal, and coronal planes. IV contrast was administered without complication. Automated exposure control wa s utilized for the study. A dose lowering technique was utilized adhering to the principles of ALARA . CT DOSE: 1540.34 mGy.cm FINDINGS: A small right pleural effusion is noted. The distal esophagus is mildly dilated and fluid-f illed. Pacer leads are partially imaged. The heart is enlarged. No pneumatosis, free air or portal ve nous gas is present. Pneumobilia is expected following placement of a common bile duct stent. Pancrea tic stent is in place. There is no significant biliary or pancreatic ductal dilatation. Peripancreati c glandular atrophy. There is no peripancreatic fluid. Spleen and adrenal glands are unremarkable. Th ere is moderate bilateral renal cortical thinning. Several suspected renal cysts are noted. The stoma ch is moderately distended and fluid-filled. The proximal to mid small bowel is also moderately dilat ed and fluid-filled. An ileal loop within an inguinal hernia is noted. Small bowel distal to the dav ia is decompressed. There is associated mesenteric stranding and a small amount of ascites. No fluid collections are present. IMPRESSION: 1. Ileal loop within an umbilical hernia results in a small bowel obstruction. Associated ascites and mesenteric stranding. No pneumatosis, free air or portal venous gas. Distended stomach and distal es ophagus. Nasogastric tube insertion might be considered. 2. Interval placement of a linear and pancreatic ductal stents. No biliary ductal dilatation. 3. Trace right pleural effusion. ACT 112: Negative or not required by law. Electronically signed by: Lane Mcgovern M.D. 06/14/2024 1:06 PM
[2024-06-14] MEDS ORDERED: SUCCINYLCHOLINE CHLORIDE 20 MG/ML 10 ML VIAL IV ONE (13:45)
[2024-06-14] MEDS ORDERED: DEXAMETHASONE SOD INJ 4 MG/ML VIAL ONE (13:45)
[2024-06-14] MEDS ORDERED: LIDOCAINE 2% 2 ML VIAL/AMP(20MG/ML) INFIL ONE (13:45)
[2024-06-14] MEDS ORDERED: LARYING-O-JET KIT (LTA) ONE (13:45)
[2024-06-14] MEDS ORDERED: ONDANSETRON INJ 2 MG/ML 2 ML VIAL ONE (13:45)
[2024-06-14] MEDS ORDERED: fentaNYL citrate PF 100 MCG/2 ML VIAL ONE ×2 (13:45)
[2024-06-14] MEDS ORDERED: ROCURONIUM BROMIDE 10 MG/ML 5 ML VIAL IV ONE (13:45)
[2024-06-14] MEDS ORDERED: PROPOFOL IV EMULSION 10 MG/ML 20 ML VIAL IV ONE (13:45)
[2024-06-14] MEDS ORDERED: MIDAZOLAM HCL 1 MG/ML 2ML VIAL ONE (13:45)
--- NOTE | 2024-06-14 13:54 | Surgery Consultation ---
Date of Consultation June 14, 2024 Assessment & Plan (1) Incarcerated ventral hernia: Patient with many medical comorbidities making him a poor surgical candidate however this is an emergent issue and needs to be repaired CELSO. I did discuss with our vascular surgeon Dr. Alvarenga regarding the need for preoperative vena cava filter and he states that since he is on Eliquis this would not be needed unless he will need to be off anticoagulation postoperatively. Discussed options with the patient. Despite his high surgical risk we will proceed with a laparoscopy with repair of his incarcerated ventral hernia with mesh. We discussed the risks would include bleeding, infection, injury to other organs such as bowel, DVT, PE, AL, CVA etc. Following our discussion I answered all of his questions. We will proceed CELSO with laparoscopy/repair of his incarcerated ventral hernia (2) Diabetes type 2, uncontrolled: (3) Morbid obesity: (4) CHF (congestive heart failure): (5) Small bowel obstruction: (6) Chronic kidney disease, stage IV (severe): History of Present Illness History of Present Illness 79-year-old male who presents to the emergency room from an assisted shelter with rather severe abdominal pain. Physical exam and imaging reveals an incarcerated periumbilical ventral hernia with an associated small bowel obstruction. The patient states that he is in considerable pain. Complicating factors include an acute DVT as well as a new diagnosis of pancreatic cancer. He did vomit once. Allergies Allergy/AdvReac Type Severity Reaction Status Date / Time cefaclor AdvReac Intermediate RASH Verified 05/14/24 14:48 oxycodone AdvReac Intermediate "I GET ALL Verified 05/14/24 14:48 GOOFY" Home Medications Medication Instructions Recorded Confirmed Type sharps container-insulin syringe ##1 10/05/18 01/12/24 History and needle 1 mL 30 gauge x 5/16" aspirin 81 mg tablet,delayed 81 mg PO QAM 05/28/21 06/06/24 History release flash glucose scanning reader 07/04/21 01/12/24 History (FreeStyle Maisha 2 Yolyn) lancets 30 gauge (OneTouch Delica 07/04/21 01/12/24 History Plus Lancet) flash glucose sensor (FreeStyle #2 ea 07/09/21 01/12/24 Rx Maisha 2 Sensor kit) pen needle, diabetic 32 gauge x #100 ea 05/27/22 01/12/24 Rx 1/4" (BD Ultra-Fine Micro Pen Needle) apixaban 5 mg tablet (Eliquis) 5 mg PO BID #180 tabs 04/28/23 06/06/24 Rx nitroglycerin 0.4 mg sublingual 0.4 mg sublingual Q5M PRN Chest 11/11/23 06/06/24 History tablet Pain ondansetron 4 mg disintegrating 4 mg PO Q8H PRN Nausea And Vomiting 11/11/23 06/06/24 History tablet pantoprazole 40 mg tablet,delayed 40 mg PO QAM 11/11/23 06/06/24 History release empagliflozin 25 mg tablet 25 mg PO DAILY 12/11/23 06/06/24 History (Jardiance) tirzepatide 5 mg/0.5 mL 5 mg subcut WK 12/11/23 06/06/24 History subcutaneous pen injector (Keyla) amlodipine 5 mg tablet (Norvasc) 5 mg PO QAM #30 tabs 12/20/23 06/06/24 Rx insulin lispro 100 unit/mL 1 sliding scale dose subcut 12/20/23 06/06/24 Rx subcutaneous pen (Admelog SolLeonel USEASDIRECTD #0 mL U-) metoprolol succinate 50 mg 50 mg PO BID #60 tabs 12/20/23 06/06/24 Rx tablet,extended release 24 hr sennosides 8.6 mg tablet (Senokot) 17.2 mg (2 x 8.6 mg) PO QAM #60 12/20/23 06/06/24 Rx tabs atorvastatin 80 mg tablet 80 mg PO HS 05/09/24 06/06/24 History calcitriol 0.5 mcg capsule 0.5 mcg PO QAM 05/09/24 06/06/24 History furosemide 20 mg tablet 10 mg PO QAM 05/09/24 06/06/24 History gabapentin 300 mg capsule 300 mg PO HS 05/09/24 06/06/24 History levothyroxine 112 mcg capsule 112 mcg PO QAM 05/09/24 06/06/24 History magnesium oxide 400 mg PO QAM 05/09/24 06/06/24 History potassium chloride 10 mEq 10 meq PO QAM 05/09/24 06/06/24 History tablet,extended release sertraline 50 mg tablet 75 mg PO QAM 05/09/24 06/06/24 History terazosin 10 mg capsule 10 mg PO QAM 05/09/24 06/06/24 History losartan 50 mg tablet 50 mg PO QAM 05/14/24 06/06/24 History polyethylene glycol 3350 17 gram 17 g PO QAM 05/14/24 06/06/24 History oral powder packet (ClearLax) cholestyramine-aspartame 4 gram 1 ea PO BID #60 ea 05/19/24 06/06/24 Rx oral powder for susp in a packet (Prevalite) acetaminophen 325 mg tablet 650 mg PO Q6H PRN pain/temp>100 06/06/24 06/06/24 History carbamide peroxide 6.5 % ear drops 5 drp otic (ear) BID 06/06/24 06/06/24 History (Ear Wax Drops) ciprofloxacin 0.3 %-dexamethasone 4 drp OTL BID 06/06/24 06/06/24 History 0.1 % ear drops,suspension ciprofloxacin HCl 500 mg tablet 500 mg PO BID 06/06/24 06/06/24 History insulin degludec 100 unit/mL (3 40 unit subcut DAILY 06/06/24 06/06/24 History mL) subcutaneous pen (Tresiba FlexTouch U-100 insulin) neomycin 1.75 mg-polymyxin 10,000 2 drp OPB TID 06/06/24 06/06/24 History unit-gramicidin 0.025mg/mL eye drops Patient History Medical History Chronic kidney disease, stage III (moderate) Acute respiratory failure JUANPABLO (acute kidney injury) Colon polyps Elevated transaminase level Hematuria Tinea pedis of both feet Vitamin D deficiency Surgical History History of incision and drainage (12/15/23) Incision and Drainage of Scalp Abscess x 2(Not Applicable) - Sarbjit Bai DO History of colonoscopy History of tonsillectomy History of mandibular surgery History of cholecystectomy History of coronary artery stent placement History of cardiac cath History of cataract surgery Family History Father Lung cancer Brother Lung disease Lung cancer Denies family history of Ovarian cancer Prostate cancer Myocardial infarction Breast cancer Colorectal cancer Social History Smoking Status: Never smoker Age Started Using Tobacco: 20; Age Quit Using Tobacco: 21; Second Hand Exposure: Yes; Hx Alcohol Use: No Hx Substance Use: No Preferred Language: Iraqi Communication Ability: Effective Visual Impairment: No Limitations Hearing Ability: Use of Hearing Aid Maintenance Repairman Required: No Beliefs That Will Affect Care: None marital status: / Current Living Situation: Personal Care Facility Current Living Situation Comment: Di current occupational status: retired 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 Oriented. Uncomfortable secondary to abdominal pain Eyes: PERRL, conjunctivae normal, anicteric sclerae EOM intact bilaterally ENMT: external ear and nose normal, oropharynx normal Ears: no hearing impairment Neck: trachea midline, no thyromegaly Respiratory: normal respiratory effort; no respiratory distress and does not use accessory muscles Cardiovascular: Rate/Rhythm: regular rate and regular rhythm Gastrointestinal (Abdomen): Obese. There is a rather large incarcerated supraumbilical ventral hernia. This is red and tender and nonreducible Skin: no rashes, warm and dry Psychiatric: Orientation: alert, oriented x 3 and cooperative Results & Data Vital Signs (Past 12 Hours) Vital Signs Temp Pulse Pulse Resp BP BP Pulse Ox 06/14/24 13:20 83 20 144/70 H 94 06/14/24 11:18 56 L 06/14/24 10:55 36.5 C 61 18 131/64 98 O2 Del Method 06/14/24 13:20 06/14/24 11:18 06/14/24 10:55 Room Air PG Care Time/CCT Total # of Minutes Spent Total Time Spent with Patient: Total time spent is greater than 50% in coordination of care (as documented) at patient's floor/unit and/or counseling patient: Coding Level of Care Code 55160 OP VST NEW MOD 45 MIN Diagnoses Incarcerated ventral hernia K43.6 Uncontrolled type 2 diabetes mellitus with hypoglycemia without coma E11.649 Glycemic state: with hypoglycemia Coma presence: without coma Morbid obesity E66.01 CHF (congestive heart failure) I50.9 Small bowel obstruction K56.609 Chronic kidney disease, stage IV (severe) N18.4 (2) Diabetes type 2, uncontrolled Glycemic state: with hypoglycemia Coma presence: without coma Qualified Code(s): E11.649 - Type 2 diabetes mellitus with hypoglycemia without coma
--- NOTE | 2024-06-14 14:12 | History & Physical Report ---
Date of Service June 14, 2024 Assessment & Plan (1) Incarcerated ventral hernia: Plan: 79-year-old male with history of recent DVT/PE, recurrent DVT/PE, CKD, HFpEF, DM 2 who presented with an incarcerated hernia requiring emergent surgical intervention. He is high risk due to active anticoagulation with Eliquis, recurrent DVT/PE, underlying CAD/HFpEF although near euvolemic at time of assessment, CKD, and insulin-dependent DM. Patient understands high risk of c omplications but requires emergent surgical intervention for an incarcerated hernia with associated elevated lactate and bowel obstruction. He will proceed emergently to surgical intervention as full code. Incarcerated Hernia Poor surgical candidate. Requires emergent intervention. Progressing to lap repair Abdominal pain of several days, poor appetite. CT with evidence of incarcerated hernia and associated small bowel obstruction Lactate 2.4. Repeat pending Case was reviewed between surgery and vascular. As patient is anticipated to resume postoperative anticoagulation likely 06/16 is not recommended for a filter. Due to his high clot risk, underlying VTE/PE, and acute to subacute right DVT last seen approximately 1 month ago as high risk for severe DVT/PE, risk outweigh benefits of preoperative Kcentra. Anticipate resuming anticoagulation if clinically stable 06/16 Surgery consulted [facility]BO With associated incarcerated hernia. NPO. Taken emergently to surgical intervention for hernia. Oral meds held. Beta-razia converted to low-dose IV to prevent withdrawal. - IVFM, multimodal pain control + zofran Current DVT/PE Last right lower extremity DVT noted 05/2024 Eliquis held perioperatively. Reversal not recommended due to high recurrent clot risk. If stable anticipate resuming anticoagulation 06/16 Vena cava filter was discussed tween surgery and vascular surgery, not recommended at this time. Precancerous pancreatic mass Patient with recent EUS and biopsy. Pending follow-up to [facility]. Records pending, per family report pancreatic mass is premalignant Patient has a indwelling bare-metal stent and plastic stent in place. No acute change in management of these HFpEF Last EF 55 to 60% echo 09/2023. Euvolemic Metoprolol, amlodipine continued Chronic right greater than left swelling with known DVT. Otherwise no significant pitting edema Patient denies recent orthopnea, chest pain, chest pressure notes he has limited activity at baseline No acute ischemic symptoms or recent anginal symptoms EKG: Dual paced, no acute ischemic changes. Metoprolol converted to IV every 6 hours while NPObeta-razia withdrawal CKD 4 Baseline creatinineApproximately 2.32.5 Creatinine on admission 1.96 Trend daily DM2 Oral medications held Mounjaro held Basal bolus SSI while inpatient. Basal dose reduced while NPO. N.p.o. for bowel obstruction and pending surgical intervention of incarcerated hernia Hypothyroidism Synthroid held. Resume once able to tolerate n.p.o., can convert to 70% IV dose reduced formulation if with prolonged n.p.o. status DVT prophylaxis: SCDs Diet: N.p.o. Disposition: PCU CODE STATUS: Full code on admission (2) Small bowel obstruction: (3) Mass of head of pancreas: (4) Chronic kidney disease, stage IV (severe): (5) Acute blood loss anemia: History of Present Illness Primary Care Provider: Myrna Garrett a 79-year-old male patiently admitted 05/20/2024 - 05/29/2024 for left forearm hematoma on aspirin/apixaban, CKD 4, pancreatic head mass not able to follow-up with MRCP due to pacemaker compatibility who presents with suspected incarcerated hernia. He does have a history of hypercoagulable state with chronic right lower extremity DVT and extensive bilateral PE 11/2021. In the setting of his left forearm hematoma 05/2024 did have Eliquis transiently held and then resumed 05/23/2024. Again has underlying concern for possible pancreatic head mass and malignancy and was pending follow-up for EGD/EUS at [facility]. Report 06/01/2024 shows s/p cholecystectomy, pancreatic septotomy was performed and biliary spincterotomy was performed, cells for cytology obtained from lower third of the main duct, one prophylactic pancreatic stent was placed into the ventral pancreatic duct, 1 covered metal stent was placed in common bile duct. Was recommended for 5 days of prophylactic cipro and follow-up with surgical oncology with pathology pending. Per patient family was told that pancreatic biopsies were precancerous and were pending follow-up with [facility] heme-onc this coming Wednesday Seen at the bedside in [facility] before he is taken for emergent laparoscopic hernia repair. He reports he has had poor appetite nausea currently felt poorly over the past week. Denies abdominal pain at rest but has pain with any attempted palpation of his abdominal hernia. He denies shortness of breath. He reports he is not very active at baseline, generally just transfers and does not walk significant distances or goes upstairs. With his normal activities he has not had any chest pain, chest pressure, palpitations. Endorses history of CKD which she feels is stable. He feels that his right leg has been a little bit more swollen with the recent blood clot otherwise denies acute leg swelling. He did have his recent biopsy of his pancreatic mass with [facility]. While his intestinal biopsies were normal the pancreatic was reportedly precancerous. He is pending a meeting with oncology this coming week to discuss potential treatments and interventions. During his EUS he did have a bare metal and plastic stent placed which remain in place Medical History: Reviewed Medications: Reviewed Surgical History: Reviewed Family history: Reviewed Allergies: Reviewed Social History: Reviewed Code Status: Full code pending surgery Allergies Allergy/AdvReac Type Severity Reaction Status Date / Time cefaclor AdvReac Intermediate RASH Verified 06/14/24 14:05 oxycodone AdvReac Intermediate "I GET ALL Verified 06/14/24 14:05 GOOFY" Home Medications Medication Instructions Recorded Confirmed Type sharps container-insulin syringe ##1 10/05/18 01/12/24 History and needle 1 mL 30 gauge x 5/16" aspirin 81 mg tablet,delayed 81 mg PO QAM 05/28/21 06/06/24 History release flash glucose scanning reader 07/04/21 01/12/24 History (FreeStyle Maisha 2 [place]ington) lancets 30 gauge (OneTouch Delica 07/04/21 01/12/24 History Plus Lancet) flash glucose sensor (FreeStyle #2 ea 07/09/21 01/12/24 Rx Maisha 2 Sensor kit) pen needle, diabetic 32 gauge x #100 ea 05/27/22 01/12/24 Rx 1/4" (BD Ultra-Fine Micro Pen Needle) apixaban 5 mg tablet (Eliquis) 5 mg PO BID #180 tabs 04/28/23 06/06/24 Rx nitroglycerin 0.4 mg sublingual 0.4 mg sublingual Q5M PRN Chest 11/11/2307/28 History tablet Pain ondansetron 4 mg disintegrating 4 mg PO Q8H PRN Nausea And Vomiting 11/11/23 06/06/24 History tablet pantoprazole 40 mg tablet,delayed 40 mg PO QAM 11/11/23 06/06/24 History release empagliflozin 25 mg tablet 25 mg PO DAILY 12/11/23 06/06/24 History (Jardiance) tirzepatide 5 mg/0.5 mL 5 mg subcut WK 12/11/23 06/06/24 History subcutaneous pen injector (Keyla) amlodipine 5 mg tablet (Norvasc) 5 mg PO QAM #30 tabs 12/20/23 06/06/24 Rx insulin lispro 100 unit/mL 1 sliding scale dose subcut 12/20/23 06/06/24 Rx subcutaneous pen (Admelog Scooter USEASDIRECTD #0 mL U-) metoprolol succinate 50 mg 50 mg PO BID #60 tabs 12/20/23 06/06/24 Rx tablet,extended release 24 hr sennosides 8.6 mg tablet (Senokot) 17.2 mg (2 x 8.6 mg) PO QAM #60 12/20/23 06/06/24 Rx tabs atorvastatin 80 mg tablet 80 mg PO HS 05/09/24 06/06/24 History calcitriol 0.5 mcg capsule 0.5 mcg PO QAM 05/09/24 06/06/24 History furosemide 20 mg tablet 10 mg PO QAM 05/09/24 06/06/24 History gabapentin 300 mg capsule 300 mg PO HS 05/09/24 06/06/24 History levothyroxine 112 mcg capsule 112 mcg PO QAM 05/09/24 06/06/24 History magnesium oxide 400 mg PO QAM 05/09/24 06/06/24 History potassium chloride 10 mEq 10 meq PO QAM 05/09/24 06/06/24 History tablet,extended release sertraline 50 mg tablet 75 mg PO QAM 05/09/24 06/06/24 History terazosin 10 mg capsule 10 mg PO QAM 05/09/24 06/06/24 History losartan 50 mg tablet 50 mg PO QAM 05/14/24 06/06/24 History polyethylene glycol 3350 17 gram 17 g PO QAM 05/14/24 06/06/24 History oral powder packet (ClearLax) cholestyramine-aspartame 4 gram 1 ea PO BID #60 ea 02/14/25 03/04/25 Rx oral powder for susp in a packet (Prevalite) acetaminophen 325 mg tablet 650 mg PO Q6H PRN pain/temp>100 06/06/24 06/06/24 History carbamide peroxide 6.5 % ear drops 5 drp otic (ear) BID 06/06/24 06/06/24 History (Ear Wax Drops) ciprofloxacin 0.3 %-dexamethasone 4 drp OTL BID 06/06/24 06/06/24 History 0.1 % ear drops,suspension ciprofloxacin HCl 500 mg tablet 500 mg PO BID 06/06/24 06/06/24 History insulin degludec 100 unit/mL (3 40 unit subcut DAILY 06/06/24 06/06/24 History mL) subcutaneous pen (Tresiba FlexTouch U-100 insulin) neomycin 1.75 mg-polymyxin 10,000 2 drp OPB TID 06/06/24 06/06/24 History unit-gramicidin 0.025mg/mL eye drops Past Med/Surg History Problem List (Updated 06/14/24 @ 13:52 by Og Benson, DO) Small bowel obstruction Incarcerated ventral hernia Recurrent falls (Acute) Hypomagnesemia (Acute) Mass of head of pancreas Acute blood loss anemia Chronic kidney disease, stage IV (severe) (Acute) Hematuria (Acute) Hematoma of left forearm (Acute) Generalized weakness (Acute) Anemia (Acute) Biliary obstruction DVT (deep venous thrombosis) Swelling of right lower extremity (Acute) Elevated LFTs (Acute) Generalized weakness (Acute) Abnormal LFTs (Acute) Jaundice (Acute) History of DVT (deep vein thrombosis) Acute metabolic encephalopathy Scalp abscess (Acute) Cellulitis of scalp (Acute) Right otitis media Finger pain, left Encounter for screening colonoscopy Toe injury Traumatic loss of toenail of right great toe Vitamin D deficiency Bilateral pulmonary embolism Lumbar back pain with radiculopathy affecting left lower extremity Albuminuria Hypertension Diabetes type 2, uncontrolled Pulmonary nodule Sleep apnea (Chronic) Secondary hyperparathyroidism (Chronic) Morbid obesity (Chronic) Lumbar spinal stenosis (Chronic) Hypothyroidism (Chronic) Dyslipidemia (Chronic) Dysesthesia (Chronic) Diabetic peripheral 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) Depression (Chronic) Chronic reflux esophagitis (Chronic) Cardiac pacemaker (Chronic) CHF (congestive heart failure) (Chronic) Arteriosclerotic cardiovascular disease (Chronic) Anemia (Chronic) Background diabetic retinopathy associated with type 2 diabetes mellitus Hypomagnesemia Chronic anemia (Acute) Medical History Chronic kidney disease, stage III (moderate) Acute respiratory failure JUANPABLO (acute kidney injury) Colon polyps Elevated transaminase level Hematuria Tinea pedis of both feet Vitamin D deficiency Surgical History History of incision and drainage (12/15/23) Incision and Drainage of Scalp Abscess x 2(Not Applicable) - Sarbjit Bai DO History of colonoscopy History of tonsillectomy History of mandibular surgery History of cholecystectomy History of coronary artery stent placement History of cardiac cath History of cataract surgery Family History Father Lung cancer Brother Lung disease Lung cancer Denies family history of Ovarian cancer Prostate cancer Myocardial infarction Breast cancer Colorectal cancer Social History Smoking Status: Never smoker Age Started Using Tobacco: 20; Age Quit Using Tobacco: 21; Second Hand Exposure: Yes; Hx Alcohol Use: No Hx Substance Use: No Preferred Language: Greek Communication Ability: Effective Visual Impairment: No Limitations Hearing Ability: Use of Hearing Aid Local [employer]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: No Beliefs That Will Affect Care: None marital status: / Current Living Situation: Personal Care Facility Current Living Situation Comment: Di current occupational status: retired 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 NAD. Cooperative. HEENT: Atraumatic, normocephalic. Patient here grossly intact Pulm: CTAB A&P. -wheezes, -rales, -rhonchi. Symmetrical chest rise. No increased work of breathing. No respiratory distress. Cardiac: RRR, -mrg. Radial pulses intact and symmetrical. Abdominal: Tender slightly erythematous umbilical hernia, prominently tender to palpation. Extremities: Right calf with increased leg circumference compared to the left. Trace ankle edema Results & Data Results & Data Vital Signs (Past 12 Hours) Vital Signs Temp Pulse Pulse Resp BP BP Pulse Ox 06/14/24 13:20 83 20 144/70 H 94 06/14/24 11:18 56 L 06/14/24 10:55 36.5 C 61 18 131/64 98 O2 Del Method 06/14/24 13:20 06/14/24 11:18 06/14/24 10:55 Room Air PG Care Time/CCT Total # of Minutes Spent Total Time Spent with Patient: Total time spent is greater than 50% in coordination of care (as documented) at patient's floor/unit and/or counseling patient: Coding Level of Care Code 16273 INT INP/OBS CARE 3/75MIN Diagnoses Incarcerated ventral hernia K43.6 Small bowel obstruction K56.609 Mass of head of pancreas K86.89 Chronic kidney disease, stage IV (severe) N18.4 Acute blood loss anemia D62
--- NOTE | 2024-06-14 14:22 | Anesthesiology Consultation ---
Date of Service June 14, 2024 Assessment & Plan Consults Requested none ASA ASA4E Proposed Anesthesia Anesthesia Type: General Risk / Benefits Reviewed With: PT / POA / Parent / Guardian, Accepts Plan and Informed Consent Obtained History Surgery Operation Date: 06/14/24 10:15 Proposed Procedures p Laparoscopic Umbilical Hernia Repair, Possible Open - Og Benson, DO Height/Weight Height: 5 ft 5 in Weight: 104.7 kg Allergies Allergy/AdvReac Type Severity Reaction Status Date / Time cefaclor AdvReac Intermediate RASH Verified 06/14/24 14:05 oxycodone AdvReac Intermediate "I GET ALL Verified 06/14/24 14:05 GOOFY" Medications Home Medications Medication Instructions Recorded Confirmed Last Taken sharps container-insulin syringe ##1 10/05/18 01/12/24 Unknown and needle 1 mL 30 gauge x 5/16" aspirin 81 mg tablet,delayed 81 mg PO QAM 05/28/21 06/06/24 05/28/21 release flash glucose scanning reader 07/04/21 01/12/24 Unknown (FreeStyle Maisha 2 [place]) lancets 30 gauge (OneTouch Delica 07/04/21 01/12/24 Unknown Plus Lancet) flash glucose sensor (FreeStyle #2 ea 07/09/21 01/12/24 Unknown Maisha 2 Sensor kit) pen needle, diabetic 32 gauge x #100 ea 05/27/22 01/12/24 Unknown 1/4" (BD Ultra-Fine Micro Pen Needle) apixaban 5 mg tablet (Eliquis) 5 mg PO BID #180 tabs 04/28/23 06/06/24 Unknown nitroglycerin 0.4 mg sublingual 0.4 mg sublingual Q5M PRN Chest 11/11/23 06/06/24 Unknown tablet Pain ondansetron 4 mg disintegrating 4 mg PO Q8H PRN Nausea And Vomiting 11/11/23 06/06/24 Unknown tablet pantoprazole 40 mg tablet,delayed 40 mg PO QAM 11/11/23 06/06/24 Unknown release empagliflozin 25 mg tablet 25 mg PO DAILY 12/11/23 06/06/24 Unknown (Jardiance) tirzepatide 5 mg/0.5 mL 5 mg subcut WK 12/11/23 06/06/24 Unknown subcutaneous pen injector (Keyla) amlodipine 5 mg tablet (Norvasc) 5 mg PO QAM #30 tabs 12/20/23 06/06/24 Unknown insulin lispro 100 unit/mL 1 sliding scale dose subcut 12/20/23 06/06/24 Unknown subcutaneous pen (Admelog SoloStar USEASDIRECTD #0 mL U-) metoprolol succinate 50 mg 50 mg PO BID #60 tabs 12/20/23 06/06/24 Unknown tablet,extended release 24 hr sennosides 8.6 mg tablet (Senokot) 17.2 mg (2 x 8.6 mg) PO QAM #60 12/20/23 06/06/24 Unknown tabs atorvastatin 80 mg tablet 80 mg PO 05/09/24 06/06/24 Unknown calcitriol 0.5 mcg capsule 0.5 mcg PO QAM 05/09/24 06/06/24 Unknown furosemide 20 mg tablet 10 mg PO QAM 05/09/24 06/06/24 Unknown gabapentin 300 mg capsule 300 mg PO 05/09/24 06/06/24 Unknown levothyroxine 112 mcg capsule 112 mcg PO QAM 05/09/24 06/06/24 Unknown magnesium oxide 400 mg PO QAM 05/09/24 06/06/24 Unknown potassium chloride 10 mEq 10 meq PO QAM 05/09/24 06/06/24 Unknown tablet,extended release sertraline 50 mg tablet 75 mg PO QAM 05/09/24 06/06/24 Unknown terazosin 10 mg capsule 10 mg PO QAM 05/09/24 06/06/24 Unknown losartan 50 mg tablet 50 mg PO QA 05/14/24 06/06/24 Unknown polyethylene glycol 3350 17 gram 17 g PO QAM 05/14/24 06/06/24 Unknown oral powder packet (ClearLax) cholestyramine-aspartame 4 gram 1 ea PO BID #60 ea 05/19/24 06/06/24 Unknown oral powder for susp in a packet (Prevalite) acetaminophen 325 mg tablet 650 mg PO Q6H PRN pain/temp>100 06/06/24 06/06/24 Unknown carbamide peroxide 6.5 % ear drops 5 drp otic (ear) BID 06/06/24 06/06/24 Unknown (Ear Wax Drops) ciprofloxacin 0.3 %-dexamethasone 4 drp OTL BID 06/06/24 06/06/24 Unknown 0.1 % ear drops,suspension ciprofloxacin HCl 500 mg tablet 500 mg PO BID 06/06/24 06/06/24 Unknown insulin degludec 100 unit/mL (3 40 unit subcut DAILY 06/06/24 06/06/24 Unknown mL) subcutaneous pen (Tresiba FlexTouch U-100 insulin) neomycin 1.75 mg-polymyxin 10,000 2 drp OPB TID 06/06/24 06/06/24 Unknown unit-gramicidin 0.025mg/mL eye drops NPO Date Last Intake of Fluids: 06/14/24 Time Last Intake of Fluids: 08:30 Date Last Intake of Solids: 06/14/24 Time Last Intake of Solids: 08:30 Past Medical History Medical History Chronic kidney disease, stage III (moderate) Acute respiratory failure JUANPABLO (acute kidney injury) Colon polyps Elevated transaminase level Hematuria Tinea pedis of both feet Vitamin D deficiency Exercise / Class Metabolic Activity II 4-5 Yardwork/Stairs/Walk up hill Past Family History Family History Father Lung cancer Brother Lung disease Lung cancer Denies family history of Ovarian cancer Prostate cancer Myocardial infarction Breast cancer Colorectal cancer Past Surgical History Surgical History History of incision and drainage (12/15/23) Incision and Drainage of Scalp Abscess x 2(Not Applicable) - Sarbjit Bai DO History of colonoscopy History of tonsillectomy History of mandibular surgery History of cholecystectomy History of coronary artery stent placement History of cardiac cath History of cataract surgery Past Anesthesia History No Hx of Anesthesia Complications History of PONV No Hx of PONV Social History Smoking Status: Never smoker Hx Alcohol Use: No Alcohol type: beer alcohol intake frequency: a few times a month Hx Substance Use: No substance use type: does not use Review of Systems ROS Unobtainable: All systems reviewed & are unremarkable except as noted in HPI & below Physical Exam Vital Signs Last Vital Signs Temp 36.9 C 06/14/24 14:05 Pulse 89 06/14/24 14:05 Resp 20 06/14/24 14:05 BP 126/76 06/14/24 14:05 Pulse Ox 96 06/14/24 14:05 O2 Del Method Room Air 06/14/24 14:05 ENMT Thyromental Distance: > or= 3.5 Finger Breadths Mallampati Class: II Respiratory normal respiratory effort Auscultation: lungs clear to auscultation bilaterally Cardiovascular Rate/Rhythm: regular rate and regular rhythm Chest (Breasts) Chest: + pacemaker Neurologic moves all extremities Psychiatric Orientation: alert and oriented x 3 Testing Laboratory Results 06/14/24 11:43 06/14/24 11:43 PT 13.0 Seconds (9.0-12.0) H 06/14/24 11:43 INR 1.2 (0.9-1.1) H 06/14/24 11:43 APTT 37 Seconds (21-31) H 06/14/24 11:43 Urine Color Dark Yellow 06/14/24 12:20 Urine Appearance Clear (Clear) 06/14/24 12:20 Urine pH 5.0 (4.5-7.5) 06/14/24 12:20 Ur Specific Muse 1.021 (1.000-1.030) 06/14/24 12:20 Urine Protein 1+ (Negative) H 06/14/24 12:20 Urine Glucose (UA) 2+ (Negative) H 06/14/24 12:20 Urine Ketones Trace (Negative) H 06/14/24 12:20 Urine Nitrite Negative (Negative) 06/14/24 12:20 Ur Leukocyte Esterase Negative (Negative) 06/14/24 12:20 Urine WBC (Auto) 0-5 /hpf (0-5) 06/14/24 12:20 Urine RBC (Auto) 0-2 /hpf (0-2) 06/14/24 12:20 U Hyaline Cast (Auto) 0-2 /lpf (0-2) 06/14/24 12:20 U Epithel Cells (Auto) 0-2 /hpf (0-2) 06/14/24 12:20 Urine Bacteria (Auto) None Seen (None Seen) 06/14/24 12:20 Echocardiogram LV Function: normal
[2024-06-14] MEDS ORDERED: METOCLOPRAMIDE HCL INJ 5 MG/ML 2 ML VIAL IV PRN (14:23)
[2024-06-14] MEDS ORDERED: HYDROmorphone INJ 1 MG/ML SYRINGE IV PRN ×2 (14:23→17:33)
[2024-06-14] MEDS ORDERED: ePHEDrine sulfate 50 MG/ML AMP IV PRN (14:23)
[2024-06-14] MEDS ORDERED: fentaNYL citrate PF 100 MCG/2 ML VIAL IV PRN (14:23)
[2024-06-14] MEDS ORDERED: ONDANSETRON INJ 2 MG/ML 2 ML VIAL IV PRN ×2 (14:23→17:33)
[2024-06-14] MEDS ORDERED: ATROPINE SULFATE 0.1 MG/ML 10ML SYR IV PRN (14:23)
[2024-06-14] MEDS: LACTATED RINGER'S 1,000 ML IV SCH ×2 (14:31→18:12)
[2024-06-14] MEDS: CLINDAMYCIN/D5W 900 MG/50 ML BAG IV SCH (14:35)
[2024-06-14] MEDS ORDERED: PHENYLEPHRINE 100MCG/ML 5ML SYR ONE (14:39)
[2024-06-14] MEDS: CLINDAMYCIN 900 MG/D5W 50 ML BAG IV ONE (14:48)
[2024-06-14] MEDS ORDERED: PHENYLEPHRINE HCL 10 MG/ML VIAL ONE (15:10)
[2024-06-14] MEDS ORDERED: SODIUM BICARB 8.4% INJ 50 MEQ/50 ML SYR IV ONE (15:25)
[2024-06-14] MEDS ORDERED: VASOPRESSIN 20 UNIT/ML VIAL ONE (15:25)
[2024-06-14] MEDS ORDERED: SODIUM CHLORIDE 0.9% PF INJ 10 ML VIAL ONE ×2 (15:38)
[2024-06-14] MEDS ORDERED: ACETAMINOPHEN 1000 MG/100 ML IV IV ONE (15:42)
[2024-06-14] MEDS ORDERED: OXYMETAZOLINE 0.05% 30 ML BTL ONE (15:42)
--- OUTSIDE RECORDS SUMMARY | 2024-06-14 15:45 | External Medical Summary | Summary of Care ---
Author Name Unknown Organization [facility] Address [address] [facility] [place] [address] Phone [phone] Care Team Providers Care Knockdown Worker Name Role Phone ChuyAlek pastrana Primary Care Provider + [phone] Reason for Visit * Reason Onset Date Comments Test Results Biopsy 06/08/2024 Encounter Details Date Type Department Care Team (Late st Contact Info) Description 06/08/2024 Telephone Gastroenterology, [address] [address] Art Jessica DO [address] [place] [address] Test Results Biopsy Allergies Active Allergy Reactions Criticality Noted Date Comments Cefaclor 11/19/1998 ITCHING Oxycodone 03/24/2012 "Makes me goofy" documented as of this encounter (statuses as of 06/08/2024) Medications TERAZOSIN HCL 10 MG PO CAPS Take 1 Capsule by mouth in the morning. 0 11/16/19 09 Active ASPIRIN 81 MG [...] to be determined,Coronar y artery disease involving ho[place] coronary artery of hoopa heart without angina pectoris Take 1 Tablet by mouth every afternoon. 90 Tablet 3 04/25/19 22 Active Additional Information Patient taking differently:80 mg OralQHS, Reported on 06/01/2024 Potassium Chloride Rhona ER 20 MEQ Oral Tablet Extended Release (Klor-Con M20)Indications:Co ronary artery disease involving [place] coronary artery of hoopa heart without angina pectoris,HTN, goal below 140/80 Take 1 Tablet by mouth daily. 90 Tablet 3 04/25/19 22 Active Additional Information Patient taking differently: 10 mEqOral Daily(AM), Reported on 06/01/2024 Jardiance 25 MG Oral Tablet Take 1 Tablet by mouth in the morning. 07/12/19 22 Active Magnesium Oxide 400 MG Oral Tablet daily. 06/12/19 22 Active Sertraline HCl 50 MG Oral Tablet Take 1.5 Tablets by mouth in the morning. Active Acetaminophen 325 MG Oral Tablet (Tylenol) Take 2 Tablets by mouth 3 times a day as needed. Active Gabapentin 300 MG Oral Capsule (Neurontin) Take 1 Capsule by mouth at bedtime. 07/17/19 23 Active Furosemide 20 MG Oral Tablet (Lasix)Indications :Coronary artery disease involving [place] coronary artery of ho[place] heart without angina pectoris,HTN, goal below 140/80 Take 1 Tablet by mouth in the morning. 90 Tablet 3 08/29/19 23 Active Additional Information Patient taking differently: 10 mgOral Daily(AM), Reported on 06/01/2024 Nitroglycerin 0.4 MG Sublingual Tablet Sublingual (Nitrostat)Indicat ions:Coronary artery disease involving hoopa heart PLACE 1 TABLET UNDER THE TONGUE AND ALLOW TO DISSOLVE EVERY 5 MINUTES NEEDED FOR CHEST PAIN. (MAXIMUM 3 TABLETS. IF CHEST PAIN IS NOT RELIEVED, CALL 911) 25 Tablet 3 08/29/19 23 Active Additional Information Patient not taking.Reported on [...] the morning. 5 Each 09/11/19 24 Active Additional Information Patient not taking.Reported on 06/01/2024 NovoLOG FlexPen 100 UNIT/ML Subcutaneous Solution Pen-injector Consult sliding scale with meals and before bedtime 1 Each 09/11/19 24 Active Additional Information Patient not taking.Reported on 06/01/2024 Metoprolol Succinate ER 50 MG Oral Tablet [...] morning. 90 Tablet 3 09/11/19 24 Active Additional Information Patient not taking.Reported on 06/01/2024 Insulin Lispro (1 Unit Dial) 100 UNIT/ML [...] 8 hours as needed for Nausea. Active Ciprofloxacin HCl 500 MG Oral Tablet (Cipro) Take 1 Tablet by mouth in the morning and 1 Tablet before bedtime. 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 10/31/2014 Hematuria, [...] as of this encounter (statuses as of 06/08/2024) Resolved Problems Problem Noted Date Diagnosed Date [...] Chest pain 09/28/2012 02/06/2013 [employer] Other*[id number] 09/28/2012 05/12/2016 Overview (09/28/2012): Study Title: Genomic Markers for Patients with Cardiovascular Disease Project # [id number] Telecom Analyst: Jody Grijalva MD [phone] Impacted cerumen 03/01/2012 01/30/2015 Otitis externa, acute [...] as of this encounter (statuses as of 06/08/2024) Immunizations Name Administration Dates Next Due COVID-19 mRNA, LNP-s, No Pre serve, 2-Dose Series (Moderna) 07/20/2020,06/22/2020 Pneumococcal Conjugate Vacci ne, 20-valent ([id number]) 09/12/2023,09/11/2023(Deferred: Patient Refused - " I want [...] of Assessment Author No 11/17/2021 4:40 AM [facility] Kameron George RN [...] encounter Miscellaneous Notes * Telephone Encounter - Art Jessica DO - 06/08/2024 7:46 AM EST I contacted the patient's family, I had been given permission to talk with the patient's brother keren is presently in a long-term. 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 Given the appearancewe will have the patient seen by Surgical Oncology to determine if surgical resection is an option for him. EUS results: An irregular mass like region was identified in the pancreatic head. The mass was heterogenous and contain both solid and cystic components. The mass measured 28 mm by 22 mm in maximal cross-sectional diameter. The endosonographic borders were poorly-defined. There was sonographic evidence suggesting invasion into the portal vein (manifested by abutment). An intact interface was seen between the mass and the superior mesenteric artery, celiac trunk and hepatic artery suggesting a lack of invasion. A. Pancreas, Head, EUS guided fine needle aspiration: Adequacy: Less than optimal- Evaluation limited by low volume and scant cellularity. 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 Interpretation: Rare atypical epithelial cells in the background mucin and macrophages, see comment. Other: Cellblock: The histological sections of the cellblock preparation show similar findings. at 1142 Cytology Diagnostic Comment Rare atypical epithelial cells with moderate to high dysplasia are seen in the background of mucin and macrophages. Immunostains show the atypical cells are positive for CK7, S100P, and p53, focally positive for maspin, and negative for KOC and CDX2. Loss of SMAD4 is identified. 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 Invasive carcinoma can not be ruled out in this limited biopsy. Recommend clinical correlation. Prior Cancer documented in this encounter Plan of Treatment Upcoming Encounters Date Type Department Care Team (Late st Contact Info) Description 06/09/2024 12:45 PM EST Imaging Radiology [address] [place] [address] 10/31/2024 8:30 AM EDT Office Visit Cardiology, [facility] [address] [place] [address] Gerry Nielsen DO [address] [place] [address] 03/12/2025 10:00 AM EST Office Visit Hailey Cannon [address] [place] [address] [facility] [address] [facility] [place] [address] Scheduled Procedures Name Priority Associated Diagnoses Date/Ti [...] Additional history exists CKD PHOS USE SMARTSET 69856 09/09/202410/2023, 09/05/2023, 11/18/2021 TSH 10/10/2024 10/11/2023, 09/03, 09/07/2023, Additional history exists GFR 11/29/2024 06/01/2024, 05/07, 03/27/2024, Additional history exists CKD HGB USE SMARTSET 39862 06/01/202506/01, 06/01/2024, 03/27/2024, Additional history exists DTap/Tdap Vaccines (2 - [...] on patient's age to complete this topic Meningitis B Vaccine (Bexsero/Trumemba) Aged Out No longer eligible based on patient's age to complete this topic documented as of this encounter Medical Devices Implanted Type Area Finished Cigar Maker Device Identifier Shelf Expiration Date Model / Serial / Lot Pacemaker Dr-Rf [id number] - [id number] - [id number] Implanted:Qty: 1 on 04/03/2024 by Ashley Quezada DO at OR [facility] Pacemaker Right: Chest [employer] 07/03/2025 [id number] / [id number] / Medtronic Implanted:Qty: 1 on 12/27/2014 by Ashley Quezada DO at OR [facility] Right: Chest [employer] : KENNEDY 11/26/2016 5076-52 / [id number] / 5076-52C M Description:atrial lead Medtronic Ventricular Lead Implanted:Qty: 1 on 12/27/2014 by Ashley Quezada DO at OR [facility] Right: Chest [employer] : KENNEDY 11/01/2016 5076-58 / [id number] / Stent Viabil Biliary [id number] - [id number] Implanted:Qty: 1 on 06/01/2024 by Art Jessica DO at OR [facility] Patient Engagement Systems [id number] 01/09/2027 [id number] / [id number] / [id number] documented as of this encounter Advance Directives Documents on File Type Date Recorded 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 Question Answer Comments Discussion of Advance Direct claudia occurred with: Not Discussed due to patient's condition * Full Code Date Activated Date Inactivated Comments 06/01/2024 12:09 PM 06/01/2024 2:49 PM This order reflects the patients wishes and were consensually agreed upon. Question Answer Comments Discussion of Advance Direct claudia occurred with: Not Discussed due to patient's condition * Full Code Date Activated Date Inactivated Comments 09/06/2023 1:16 [...] Discussion of Advance Directives occurred with: Patient Healthcare Agents on File Name Relationship Healthcare Agent Relationship Communication Carolyne Stover Adult Child Health Care Agen t (per Health Care Power of String Top Sealer document) Ginger Cooper Adult Child First Alternate Health Care Agent (per Health Care Power of String Top Sealer document) Care Teams Knockdown Worker Relationship Specialty Start Date End Date Alek Vera DO [address] [place] [id number] PCP - General Family Medicine 02/16/22 documented as of this encounter
--- OUTSIDE RECORDS SUMMARY | 2024-06-14 15:45 | External Medical Summary | Summary of Care ---
Author Name Unknown Organization [facility] Address [address] [facility] [place] [address] Phone [phone] Care Team Providers Care Operator Command Support Systems Name Role Phone ChuyAlek pastrana Primary Care Provider + [phone] Reason for Visit * Reason Onset Date Comments Test Results Biopsy 06/08/2024 Encounter Details Date Type Department Care Team (Late st Contact Info) Description 06/08/2024 Telephone Gastroenterology, [address] [address] Art Jessica DO [address] [place] [address] Test Results Biopsy Allergies Active Allergy Reactions [...] to be determined,Coronar y artery disease involving [place] coronary artery of [place] heart without angina pectoris Take 1 Tablet by mouth every afternoon. 90 Tablet 3 04/25/19 22 Active Additional Information Patient taking differently:80 mg OralQHS, Reported on 06/01/2024 Potassium Chloride Rhona ER 20 MEQ Oral Tablet Extended Release (Klor-Con M20)Indications:Co ronary artery disease involving [place] coronary artery of [place] heart without angina pectoris,HTN, goal below 140/80 [...] Oral Tablet (Lasix)Indications :Coronary artery disease involving [place] coronary artery of [place] heart without angina pectoris,HTN, goal below 140/80 Take 1 Tablet by mouth in the morning. 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 The patient underwent an endoscopic ultrasound and [...] Description 06/09/2024 12:45 PM EST Imaging Radiology [address] [place] [address] 10/31/2024 8:30 AM EDT Office Visit Cardiology, [facility] [address] [place] [address] Gerry Nielsen DO [address] [place] [address] 03/12/2025 10:00 AM EST Office Visit Hailey Cannon [address] [place] [address] [facility] [address] [facility] [place] [address] Scheduled Procedures Name Priority Associated Diagnoses Date/Ti [...] Additional history exists CKD PHOS USE SMARTSET 66810 09/09/202410/2023, 09/05/2023, 11/18/2021 TSH 10/10/2024 10/11/2023, 09/03, 09/07/2023, Additional history exists GFR 11/29/2024 06/01/2024, 05/07, 03/27/2024, Additional history exists CKD HGB USE SMARTSET 18742 06/01/202506/01, 06/01/2024, 03/27/2024, Additional history exists DTap/Tdap [...] this encounter Medical Devices Implanted Type Area Slot Ambassador Device Identifier Shelf Expiration Date Model / Serial / Lot Pacemaker Dr-Rf [id number] - [id number] - [id number] Implanted:Qty: 1 on 04/03/2024 by Ashley Quezada DO at OR [facility] Pacemaker Right: Chest [employer] 07/03/2025 [id number] / [id number] / Medtronic Implanted:Qty: 1 on 12/27/2014 by Ashley Quezada DO at OR [facility] Right: Chest [employer] : KENNEDY 11/26/2016 5076-52 / [id number] / 5076-52C M Description:atrial lead Medtronic Ventricular Lead Implanted:Qty: 1 on 12/27/2014 by Ashley Quezada DO at OR [facility] Right: Chest [employer] : KENNEDY 11/01/2016 5076-58 / [id number] / Stent Viabil Biliary [id number] - [id number] Implanted:Qty: 1 on 06/01/2024 by Art Jessica DO at OR [facility] [employer] [id number] 01/09/2027 [id number] / [id number] / [id number] documented as of this encounter Advance Directives Documents on File Type Date Recorded Patient External Auditor Expl anation Advance Directives and Living Will 09/07/2023 Carolyne Cooper signed on 01/26/2019 Living Will and Health Care Power of Lead Miner * Full Code (Latest Code Status on [...] Agen t (per Health Care Power of Lead Miner document) Ginger Cooper Adult Child First Alternate Health Care Agent (per Health Care Power of Lead Miner document) Care Teams Operator Command Support Systems Relationship Specialty Start Date End Date Alek Vera DO [address] [place] [phone] PCP - General Family Medicine 02/16/22 documented as of this encounter
--- OUTSIDE RECORDS SUMMARY | 2024-06-14 15:45 | External Medical Summary | Summary of Care ---
Author Name Unknown Organization [facility] Address [address] [place] [address] Phone [phone] Care Team Providers Care Rn Float Name Role Phone ChuyAlek pastrana Primary Care Provider + [phone] Reason for Visit * Reason Onset Date Comments Referral 06/08/2024 Encounter Details Date Type Department Care Team (Late st Contact Info) Description 06/08/2024 Telephone General Surgery, [place] [address] [place] [address] Ethan Aguilar MD [address] [place] [address] Referral Allergies Active Allergy Reactions Criticality Noted Date [...] to be determined,Coronar y artery disease involving apache coronary artery of apache heart without angina pectoris Take 1 Tablet by mouth every afternoon. 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 90 Tablet 3 08/29/19 23 Active Additional Information Patient taking differently: 10 mgOral Daily(AM), Reported on 06/01/2024 Nitroglycerin 0.4 MG Sublingual Tablet Sublingual (Nitrostat)Indicat ions:Coronary artery disease involving apache heart PLACE 1 TABLET UNDER THE TONGUE [...] collapse 10/31/2014 Coronary artery disease invo lving apache coronary artery without angina pectoris 10/31/2014 Hematuria, [...] Chest pain 09/28/2012 02/06/2013 [employer] Other*[id number] 09/28/2012 05/12/2016 Overview (09/28/2012): Study Title: Genomic Markers for Patients with Cardiovascular Disease Project # [id number] Pigment Mixer: Jody Grijalva MD [phone] Impacted cerumen 03/01/2012 01/30/2015 Otitis externa, acute [...] PPD 11/19/1998 Pneumococcal Conjugate Vacci ne, 20-valent ([id number]) 09/12/2023,09/11/2023(Deferred: Patient Refused - " I want [...] encounter Miscellaneous Notes * Telephone Encounter - Lula Faria RN - 06/08/2024 2:16 PM EST Reached out to pt's brother, Alexander. Accepted appt 06/16/24 at 11:00 at [facility] with Dr. Aguilar. * Telephone Encounter - Lula Faria RN - 06/08/2024 10:[address]: Dr. Jessica Referral: Pancreatic Mass Imaging: EUS 06/01, CT pancreas ordered. Needs completed. Pathology: Pancreas, Head, EUS guided fine needle aspiration: Adequacy: Less than optimal- Evaluation limited by low volume and scant cellularity. 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 Interpretation: Rare atypical epithelial cells in the background mucin and macrophages, see comment. Other: Cellblock: The histological sections of the cellblock preparation show similar findings Attempted to reach pt's brother to schedule appt. No answer and no VM to leave a message. Will attempt again at a later time. documented in this encounter Plan of Treatment Upcoming Encounters Date Type Department Care Team (Late st Contact Info) Description 06/09/2024 12:45 PM EST Imaging Radiology [address] [facility] [place] [phone] 06/16/2024 11:00 AM EDT Office Visit General Surgery Hailey Tracy [address] [place] [address] Ethan Aguilar MD [address] [place] [address] 10/31/2024 8:30 AM EDT Office Visit Cardiology, [facility] 132 [facility] [place] [address] Gerry Nielsen, 132 [facility] [place] [address] 03/12/2025 10:00 AM EST Office Visit CardiologyHailey [address] [place] [address] [facility] Augustine [facility] [place] [address] Scheduled Procedures Name Priority Associated Diagnoses Date/Ti [...] Additional history exists CKD PHOS USE SMARTSET 59163 09/09/2024 06/0 10/2023, 09/05/2023, 11/18/2021 TSH 10/10/2024 10/11/2023, 09/03, 09/07/2023, Additional history exists GFR 11/29/2024 06/01/2024, 05/07, 03/27/2024, Additional history exists CKD HGB USE SMARTSET 87624 06/01/202506/01, 06/01/2024, 03/27/2024, Additional history exists DTap/Tdap [...] this encounter Medical Devices Implanted Type Area Hand Shoes Sewer Device Identifier Shelf Expiration Date Model / Serial / Lot Pacemaker -Hermilo [id number] - [id number] - [id number] Implanted:Qty: 1 on 04/03/2024 by Ashley Quezada DO at OR [facility] Pacemaker Right: Chest [employer] 07/03/2025 [id number] / [id number] / Medtronic Implanted:Qty: 1 on 12/27/2014 by Ashley Quezada DO at OR [facility] Right: Chest [employer] : [facility] 11/26/2016 5076-52 / [id number] / 5076-52C M Description:atrial lead Medtronic Ventricular Lead Implanted:Qty: 1 on 12/27/2014 by Ashley Quezada DO at OR [facility] Right: Chest [employer] : [facility] 11/01/2016 5076-58 / [id number] / Stent Viabil Biliary [id number] - [id number] Implanted:Qty: 1 on 06/01/2024 by Art Jessica DO at OR [facility] Integration Management [id number] 01/09/2027 [id number] / [id number] / [id number] documented as of this encounter Advance Directives Documents on File Type Date Recorded Patient Jewel Lathe Operator Expl anation Advance Directives and Living Will 09/07/2023 Carolyne Early Bedrock signed on 01/26/2019 Living Will and Health Care Power of Hot Walker * Full Code (Latest Code Status on [...] Agen t (per Health Care Power of Hot Walker document) Ginger Cooper Adult Child First Alternate Health Care Agent (per Health Care Power of Hot Walker document) Care Teams Rn Float Relationship Specialty Start Date End Date Alek Vera DO [address] [place] [address] PCP - General Family Medicine 02/16/22 documented as of this encounter
--- OUTSIDE RECORDS SUMMARY | 2024-06-14 15:45 | External Medical Summary | Summary of Care ---
Author Name Unknown Organization [facility] Address [address] [facility] [place] [address] Phone [phone] Care Team Providers Care Metal Bonder Name Role Phone ChuyAlek pastrana Primary Care Provider + [phone] Reason for Visit * Reason Onset Date Comments Test Results Biopsy 06/08/2024 Encounter Details Date Type Department Care Team (Late st Contact Info) Description 06/08/2024 Telephone Gastroenterology, [address] [phone] Art Jessica DO [address] [place] [address] Test Results Biopsy Allergies Active Allergy Reactions [...] to be determined,Coronar y artery disease involving [place] coronary artery of [place] heart without angina pectoris Take 1 Tablet by mouth every afternoon. 90 Tablet 3 04/25/19 22 Active Additional Information Patient taking differently:80 mg OralQHS, Reported on 06/01/2024 Potassium Chloride Rhona ER 20 MEQ Oral Tablet Extended Release (Klor-Con M20)Indications:Co ronary artery disease involving [place] coronary artery of [place] heart without angina pectoris,HTN, goal below 140/80 [...] Oral Tablet (Lasix)Indications :Coronary artery disease involving [place] coronary artery of [place] heart without angina pectoris,HTN, goal below 140/80 Take 1 Tablet by mouth in the morning. 90 Tablet 3 08/29/19 23 Active Additional Information Patient taking differently: 10 mgOral Daily(AM), Reported on 06/01/2024 Nitroglycerin 0.4 MG Sublingual Tablet Sublingual (Nitrostat)Indicat ions:Coronary artery disease involving [place] heart PLACE 1 TABLET UNDER THE TONGUE [...] collapse 10/31/2014 Coronary artery disease invo lving [place] coronary artery without angina pectoris 10/31/2014 Hematuria, [...] Chest pain 09/28/2012 02/06/2013 [employer] Other*[id number] 09/28/2012 05/12/2016 Overview (09/28/2012): Study Title: Genomic Markers for Patients with Cardiovascular Disease Project # [id number] Service Restorer Emergency: Jody Grijalva MD [phone] Impacted cerumen 03/01/2012 01/30/2015 Otitis externa, acute [...] (Moderna) 07/20/2020,06/22/2020 Pneumococcal Conjugate Vacci ne, 20-valent ([id number]) 09/12/2023,09/11/2023(Deferred: Patient Refused - " I want [...] patient's brother keren is presently in a senior living. The patient underwent an endoscopic ultrasound and [...] Description 06/09/2024 12:45 PM EST Imaging Radiology [address] [place] [address] 10/31/2024 8:30 AM EDT Office Visit Cardiology, [facility] [address] [place] [address] Gerry Nielsen DO [address] [place] [address] 03/12/2025 10:00 AM EST Office Visit Hailey Cannon [address] [place] [address] [facility] Augustine [facility] [place] [address] Scheduled Procedures Name Priority Associated Diagnoses Date/Ti [...] Additional history exists CKD PHOS USE SMARTSET 76827 09/09/202410/2023, 09/05/2023, 11/18/2021 TSH 10/10/2024 10/11/2023, 09/03, 09/07/2023, Additional history exists GFR 11/29/2024 06/01/2024, 05/07, 03/27/2024, Additional history exists CKD HGB USE SMARTSET 37212 06/01/202506/01, 06/01/2024, 03/27/2024, Additional history exists DTap/Tdap [...] this encounter Medical Devices Implanted Type Area Food Or Baggage Handling Rampman Device Identifier Shelf Expiration Date Model / Serial / Lot Pacemaker Dr-Rf [id number] - [id number] - [id number] Implanted:Qty: 1 on 04/03/2024 by Ashley Quezada DO at OR [facility] Pacemaker Right: Chest [employer] 07/03/2025 [id number] / [id number] / Medtronic Implanted:Qty: 1 on 12/27/2014 by Ashley Quezada DO at OR [facility] Right: Chest [employer] : [employer] 11/26/2016 5076-52 / [id number] / 5076-52C M Description:atrial lead Medtronic Ventricular Lead Implanted:Qty: 1 on 12/27/2014 by Ashley Quezada DO at OR [facility] Right: Chest [employer] : [place] 11/01/2016 5076-58 / [id number] / Stent Viabil Biliary [id number] - [id number] Implanted:Qty: 1 on 06/01/2024 by Art Jessica DO at OR [facility] [employer] [id number] 01/09/2027 [id number] / [id number] / [id number] documented as of this encounter Advance Directives Documents on File Type Date Recorded Patient Blood Collector Expl anation Advance Directives and Living Will 09/07/2023 Carolyne Cooper signed on 01/26/2019 Living Will and Health Care Power of Buffing Wheel Former Automatic * Full Code (Latest Code Status on [...] Agen t (per Health Care Power of Buffing Wheel Former Automatic document) Ginger Cooper Adult Child First Alternate Health Care Agent (per Health Care Power of Buffing Wheel Former Automatic document) Care Teams Metal Bonder Relationship Specialty Start Date End Date Alek Vera DO [address] [place] [id number] PCP - General Family Medicine 02/16/22 documented as of this encounter
--- OUTSIDE RECORDS SUMMARY | 2024-06-14 15:45 | External Medical Summary | Summary of Care ---
Author Name Unknown Organization [facility] Address [address] [place] [address] Phone [phone] Care Team Providers Care Agile Tester Name Role Phone ChuyAlek pastrana Primary Care Provider + [phone] Reason for Visit * Reason Onset Date Comments Referral 06/08/2024 Encounter Details Date Type Department Care Team (Late st Contact Info) Description 06/08/2024 Telephone General Surgery, [place] [address] [place] [address] Ethan Aguilar MD [address] [place] [address] Referral Allergies Active Allergy Reactions [...] to be determined,Coronar y artery disease involving atka coronary artery of atka heart without angina pectoris Take 1 Tablet by mouth every afternoon. 90 Tablet 3 04/25/19 22 Active Additional Information Patient taking differently:80 mg OralQHS, Reported on 06/01/2024 Potassium Chloride Rhona ER 20 MEQ Oral Tablet Extended Release (Klor-Con M20)Indications:Co ronary artery disease involving [place] coronary artery of [place]ka heart without angina pectoris,HTN, goal below 140/80 [...] Oral Tablet (Lasix)Indications :Coronary artery disease involving [place]ka coronary artery of atka heart without angina pectoris,HTN, goal below 140/80 Take 1 Tablet by mouth in the morning. 90 Tablet 3 08/29/19 23 Active Additional Information Patient taking differently: 10 mgOral Daily(AM), Reported on 06/01/2024 Nitroglycerin 0.4 MG Sublingual Tablet Sublingual (Nitrostat)Indicat ions:Coronary artery disease involving atka heart PLACE 1 TABLET UNDER THE TONGUE [...] collapse 10/31/2014 Coronary artery disease invo lving atka coronary artery without angina pectoris 10/31/2014 Hematuria, [...] Chest pain 09/28/2012 02/06/2013 [employer] Other*[id number] 09/28/2012 05/12/2016 Overview (09/28/2012): Study Title: Genomic Markers for Patients with Cardiovascular Disease Project # [id number] Tool Maintenance Worker: Jody Grijalva MD [phone] Impacted cerumen 03/01/2012 01/30/2015 Otitis externa, acute [...] (Moderna) 07/20/2020,06/22/2020 Pneumococcal Conjugate Vacci ne, 20-valent ([id number]) 09/12/2023,09/11/2023(Deferred: Patient Refused - " I want [...] of Assessment Author Yes 11/17/2021 4:40 AM EDKameron Larios RN documented as of this encounter Mental [...] Description 06/09/2024 12:45 PM EST Imaging Radiology [address] [place] [address] 10/31/2024 8:30 AM EDT Office Visit Cardiology, [facility] [address] [place] [address] Gerry Nielsen DO [address] [place] [address] 03/12/2025 10:00 AM EST Office Visit [place]a [place]wn [address] [place] [address] Stacie Augustine CRNP 400 [facility] [place] [phone] Scheduled Procedures Name Priority Associated Diagnoses Date/Ti [...] Additional history exists CKD PHOS USE SMARTSET 08156 09/09/202410/2023, 09/05/2023, 11/18/2021 TSH 10/10/2024 10/11/2023, 09/03, 09/07/2023, Additional history exists GFR 11/29/2024 06/01/2024, 05/07, 03/27/2024, Additional history exists CKD HGB USE SMARTSET 54033 06/01/202506/01, 06/01/2024, 03/27/2024, Additional history exists DTap/Tdap [...] this encounter Medical Devices Implanted Type Area Wreath And Garland Maker Device Identifier Shelf Expiration Date Model / Serial / Lot Pacemaker Dr-Rf [id number] - [id number] - [id number] Implanted:Qty: 1 on 04/03/2024 by Ashley Quezada DO at OR [facility] Pacemaker Right: Chest [employer] 07/03/2025 [id number] / [id number] / Medtronic Implanted:Qty: 1 on 12/27/2014 by Ashley Quezada DO at OR [facility] Right: Chest [employer] : [employer] 11/26/2016 5076-52 / [id number] / 5076-52C M Description:atrial lead Medtronic Ventricular Lead Implanted:Qty: 1 on 12/27/2014 by Ashley Quezada DO at OR [facility] Right: Chest [employer] : [employer] 11/01/2016 5076-58 / [id number] / Stent Viabil Biliary [id number] - [id number] Implanted:Qty: 1 on 06/01/2024 by Art Jessica DO at OR [facility] Digital Royalty [facility] [id number] 01/09/2027 [id number] / [id number] / [id number] documented as of this encounter Advance Directives Documents on File Type Date Recorded Patient Facilities Planner Expl anation Advance Directives and Living Will 09/07/2023 Carolyne Sharath Cooper signed on 01/26/2019 Living Will and Health Care Power of Envelope Folding Machine Adjuster * Full Code (Latest Code Status on [...] Carolyne Stover Adult Child Health Care Agen dylon (per Health Care Power of Envelope Folding Machine Adjuster document) Ginger Cooper Adult Child First Alternate Health Care Agent (per Health Care Power of Envelope Folding Machine Adjuster document) Care Teams Agile Tester Relationship Specialty Start Date End Date Alek Vera DO [address] [place] [address] PCP - General Family Medicine 02/16/22 documented as of this encounter
[2024-06-14] MEDS ORDERED: SUGAMMADEX SODIUM 200 MG/2 ML VIAL IV ONE (16:05)
[2024-06-14] MEDS: BUPIVACAINE/EPINEPHRINE 0.5% MPF 1:200,000 30 ML VIAL ONE (16:10)
--- NOTE | 2024-06-14 16:35 | Operative Report ---
PG Post Operative Report Pre & Post Diagnosis Operation Date: 06/14/24 10:15 Pre-Op Diagnosis: Incarcerated Ventral Hernia Post-Op Diagnosis: Incarcerated Ventral Hernia, Infarcted Small Bowel I identified the patient and participated in the time-out.: Yes Procedure Operation Date: 06/14/24 10:15 Actual Procedures p Laparoscopic Converted to Open Small Bowel Resection, Incarcerated Ventral Hernia Repair(Not Applicable) - Og Benson DO Surgeon Og Benson DO Integrated Circuits Inspector channing monge Estimated Blood Loss 50 Findings Consistent with Post-Op Diagnosis Specimens portion of small bowel Description of Procedure After informed consent was obtained the patient was taken to the operating room and placed in supine position. After successful intubation a Mariee catheter was placed sterilely and the abdomen was sterilely prepped and draped in usual fashion. I began with an upper midline incision. This was carried down through the soft tissue using cautery. Anterior fascia was opened using cautery and two #0 Vicryl stay sutures were placed. Peritoneum was entered using blunt finger penetration and a finger sweep performed. A 12 mm Schultz trocar was placed and the abdomen was insufflated to 18 mmHg. Laparoscope was inserted and the abdomen examined in 360 degrees. There was an obvious incarcerated periumbi lical hernia with omentum and small bowel incarcerated. There was also some free fluid in the right upper quadrant that was bilious in nature. I placed a left upper quadrant 5 mm trocar and a left mid abdominal 5 mm trocar under direct vision. I began by attempting to reduce the hernia. I was able to reduce some of the omentum. We also used pressure externally while I was providing traction internally with no results. I used the harmonic scalpel to then make the hernia defect slightly larger. After doing so we were able to reduce the small bowel that was incarcerated. Unfortunately there was about a 6 or 8 inch segment that was black and infarcted. It had not perforated. At this point I converted to an open procedure. We used a fresh scalpel to make a linear incision in the midline right over top of the hernia defect. I then extended the hernia defect for several centimeters superiorly as well as inferiorly. I was then able to take down the hernia sac in 360 degrees using cautery. I then used a Donna clamp to grasp the small bowel and exteriorized the infarcted portion. I used a KATHYA brown cartridge linear stapler to transect the small bowel proximal and distal to the infarcted segment. A LigaSure device was used to take down the mesentery and the specimen was passed to be sent to pathology. I then performed a xcte-vm-ajzh small bowel anastomosis again using a KATHYA brown cartridge linear stapler. The common enterotomy was closed in a handsewn technique using 3-0 Monocryl for serosal/mucosal layer followed by 3-0 silk in Lembert fashion over top. 3-0 silk was also used to place a crotch stitch. The is mesenteric defect was closed using 2-0 Vicryl in a running fashion. The anastomosis was widely patent and there was no evidence of any ischemia. We then changed our gloves. We reduced the bowel back into the abdomen. I then repaired the fascial defect using #1 Ethibond in simple interrupted fashion. Once this was done I thoroughly irrigated the soft tissue. The umbilical stalk was reattached using 0 Vicryl. The skin was then closed using skin danica over top of 1/4 inch Cam. We did re-insufflated the abdomen and reinserted the camera. All of the bowel looked good and there were no other gross abnormalities. We did suction out some of the bilious fluid in the right upper quadrant and send it for cytology. We then removed all the trocars and desufflated the abdomen. Anesthesia had placed an NG tube earlier in the case. The fascia of the camera port was closed using 0 Vicryl in a phzbmz-wx-dalob fashion. The remainder of the incisions were irrigated and closed with skin danica. The incisions were covered with silver Acticoat gauze and tape. The patient was awakened extubated and transferred to recovery in guarded condition. My nurse practitioner was present for the entire case was instrumental in all aspects including running the camera assisting with the bowel resection hernia repair wound closure and dressing placement. I attest to the content of the Intraoperative Record and any orders documented therein. Any exceptions are noted below.
--- NOTE | 2024-06-14 17:10 | XRay Report ---
Clinical history: NG tube placement One view of the abdomen was obtained Findings: There are dilated loops of small bowel change in the left upper quadrant, concerning for obstruction. The lower abdomen is not visualized. There is a nasogastric tube with its tip likely within the distal stomach. No renal or ureteral calculi are seen. No foreign body is evident. No osseous abnormality is seen Impression: 1. Nasogastric tube with its tip likely within the distal stomach 2. Suspected small bowel obstruction Electronically signed by Brooks Hartmann 06-14-2024 5:10 PM
--- NOTE | 2024-06-14 17:25 | Anesthesiology Progress Note ---
Date of Service June 14, 2024 Anesthesia Post Procedure Vital Signs Vital Signs: Temp Pulse Pulse Pulse Resp BP BP 06/14/24 17:10 36.4 C L 67 15 92/48 L 06/14/24 17:00 71 18 96/47 L 06/14/24 16:50 67 18 94/52 L 06/14/24 16:40 77 20 106/57 L 06/14/24 16:30 63 18 112/55 L 06/14/24 16:26 36.8 C 70 19 115/51 L 06/14/24 14:05 36.9 C 89 20 06/14/24 13:20 83 20 06/14/24 11:18 56 L 06/14/24 10:55 36.5 C 61 18 131/64 BP Pulse Ox O2 Del Method O2 Flow Rate 06/14/24 17:10 93 Nasal Cannula 4 06/14/24 17:00 94 Oxymask 4 06/14/24 16:50 93 Oxymask 4 06/14/24 16:40 96 Oxymask 15 06/14/24 16:30 92 Oxymask 15 06/14/24 16:26 95 Oxymask 15 06/14/24 14:05 126/76 96 Room Air 06/14/24 13:20 144/70 H 94 06/14/24 11:18 06/14/24 10:55 98 Room Air Transfer of Care Handoff Completed per policy Notes Mental Status: alert / awake / arousable Patient Amnestic to Procedure: Yes Nausea / Vomiting: adequately controlled Pain: adequately controlled Airway Patency, RR, SpO2: stable & adequate BP & HR: stable & adequate Hydration State: stable & adequate Anesthetic Complications: no major complications apparent and Pt Satisfied with anesthetic care Notes: Patient discharged from pacu to pcu o 2 L nasal cannula with sats 91-95. Aspiration was noted on intubation after which patient and ETT were suctioned. Lungs clear to auscultation on exam.
[2024-06-14] MEDS ORDERED: GLUCOSE 10 TAB/TUBE PO PRN (17:33)
[2024-06-14] MEDS ORDERED: GLUCOSE 40% GEL 15 GM TUBE PO PRN (17:33)
[2024-06-14] MEDS ORDERED: GLUCAGON FOR INJ 1 MG VIAL SQ PRN (17:33)
[2024-06-14] MEDS ORDERED: HYDROmorphone INJ 0.5 MG/0.5 ML SYR IV PRN ×2 (17:33→17:55)
[2024-06-14] MEDS ORDERED: PHARMACY GLYCEMIC MGMT CONSULT PRN (17:33)
[2024-06-14] MEDS: DEXTROSE 50% 50 ML SYRINGE IV PRN (17:48)
[2024-06-14] MEDS: D5W AND LACTATED RINGERS 1,000 ML IV SCH (18:09)
[2024-06-14] MEDS: DEXTROSE 50% 50 ML SYRINGE IV ONE (18:10)
[2024-06-14] MEDS: ACETAMINOPHEN 1,000 MG/100 ML VIAL IV SCH ×2 (18:11→22:35)
[2024-06-14] MEDS: INSULIN ASPART PER UNIT CHARGE SC SCH (18:12)
[2024-06-14] MEDS: METOPROLOL TARTRATE 1 MG/ML VIAL IV SCH (18:21)
--- NOTE | 2024-06-14 18:38 | Billing Data ---
Date of Service June 14, 2024 Coding Level of Care Code 63632 CRITICAL CARE 1ST 30-74M Time Spent (min) 60
[2024-06-14 20:27] LABS: Base Excess VBG -0.2 mEq/L; HCO3 VBG 26 mmol/L; Oxygen Saturation VBG < 60.0 %; PCO2 VBG 50 mmHg (38-50); PO2 VBG 26 mmHg; pH VBG 7.33 (7.36-7.41)
[2024-06-14 20:33] LABS: Hematocrit (blood only) 29.2 % (42.0-52.0); Hemoglobin 9.2 g/dl (14.0-18.0)
[2024-06-14] MEDS ORDERED: LANTUS PER UNIT CHARGE SQ SCH (21:00)
[2024-06-14] MEDS: CLINDAMYCIN/D5W 600 MG/50 ML BAG IV SCH (22:59)
[2024-06-14] MEDS: LACTATED RINGER'S 500 ML IV ONE (23:50)
[2024-06-15 00:19] LABS: Base Excess VBG -1.2 mEq/L; HCO3 VBG 26 mmol/L; Oxygen Saturation VBG < 60.0 %; PCO2 VBG 51 mmHg (38-50); PO2 VBG 21 mmHg; pH VBG 7.31 (7.36-7.41)
[2024-06-15 02:26] LABS: Hematocrit (blood only) 26.3 % (42.0-52.0); Hemoglobin 8.2 g/dl (14.0-18.0); Mean Corpuscular Hemoglobin 28.2 pg (25.0-34.0); Mean Corpuscular Hgb Conc 31.2 g/dL (32.0-36.0); Mean Corpuscular Volume 90.4 fL (80.0-100.0); Mean Platelet Volume 10.3 fL (9.4-12.4); Platelet Count 194 K/uL (130-400); RDW Coefficient of Variation 18.8 % (11.5-14.5); RDW Standard Deviation 62.5 fL (36.4-46.3); Red Blood Count 2.91 M/uL (4.70-6.10); White Blood Count 9.78 K/ul (4.8-10.8)
[2024-06-15 02:55] LABS: Basophils # (auto) 0.01 K/uL (0.00-0.20); Basophils % (auto) 0.1 %; Immature Granulocytes # (auto) 0.02 K/uL (0.01-0.20); Immature Granulocytes % (auto) 0.2 %; Lymphocytes # (auto) 0.39 K/uL (1.20-3.40); Monocytes # (auto) 0.45 K/uL (0.11-0.59); Monocytes % (auto) 4.6 %; Neutrophils # (auto) 8.91 K/uL (1.40-6.50); Neutrophils % (auto) 91.1 %; RBC Morphology Unremarkable
[2024-06-15 04:10] LABS: Base Excess VBG -1.2 mEq/L; HCO3 VBG 26 mmol/L; Oxygen Saturation VBG < 60.0 %; PCO2 VBG 51 mmHg (38-50); PO2 VBG 31 mmHg; pH VBG 7.31 (7.36-7.41)
[2024-06-15 04:53] LABS: Albumin Level 2.5 gm/dl (3.4-5.0); Bilirubin,Total 1.6 mg/dl (0.2-1.0); Creatinine Clr Calc Pharmacy 32.1 ml/min; Globulin 2.6 gm/dl (2.5-4.0); Total Protein 5.1 gm/dl (6.0-8.3)
--- NOTE | 2024-06-15 06:34 | Electrocardiogram Report ---
Test Reason : Blood Pressure : */* mmHG Vent. Rate : 64 BPM Atrial Rate : 64 BPM P-R Int : 166 ms QRS Dur : 162 ms QT Int : 520 ms P-R-T Axes : * 131 25 degrees QTcB Int : 536 ms AV dual-paced rhythm with Premature ventricular complexes Abnormal ECG When compared with ECG of 06-Jun-2024 10:50, No significant change Confirmed by Froilan Mtz ([id number]) on 06/15/2024 6:33:45 AM Referred By: Confirmed By: Froilan Mtz
[2024-06-15 08:15] LABS: Hematocrit (blood only) 26.2 % (42.0-52.0); Hemoglobin 8.3 g/dl (14.0-18.0)
--- NOTE | 2024-06-15 08:31 | Surgery Progress Note ---
Date of Service June 15, 2024 Assessment & Plan (1) Small bowel obstruction: Plan: POD 1 Incarcerated Ventral Hernia Repair, Converted to Open Small Bowel Resection Dr Benson abdominal pain controlled, shadowing on drsg noted hypotensive over night received 500cc bolus, BP this AM 108/44, HR 66 afebrile. Denies sob, CP NGT 250/1750ml in 12/24hr continue ngt today, no bm or flatus H/H 8.2/ 26.2 (10.3/32.23) continue to hold anticoagulation Mariee in draining clear yellow urine Continue IV ABX , IS Q1hr awake will continue to monitor closely as above. from my standpoint doing ok all things considered. abd pain much improved from pre-op I would prefer to keep ngt another 24-48 hrs as pt presented with sbo and high risk for ileus. may be removed if needed for bipap/cpap can restart Eliquis tomorrow or wednesday. essentially no intra-op bleeding (2) Incarcerated ventral hernia: Admission and Anticipated Discharge Date Admission Date: June 14, 2024 Subjective pt reports abd pain controlled no bm or flatus Review of Systems Constitutional: no fever and no chills Respiratory: no dyspnea Cardiovascular: no chest pain Gastrointestinal: + abdominal pain; no nausea and no vomit ing Physical Exam Constitutional: cooperative and comfortable; no acute distress Respiratory: normal respiratory effort; no respiratory distress Cardiovascular: Rate/Rhythm: regular rate Gastrointestinal (Abdomen): Inspection/Auscultation: + abdominal surgical incision (dressing intact , circled and shadowing noted ) Results & Data Vital Signs (Past 12 Hours) Vital Signs Temp Pulse Pulse Pulse Resp BP BP 06/15/24 08:22 66 06/15/24 07:16 98.1 F 71 18 108/44 L 06/15/24 06:01 99/55 L 06/15/24 04:08 97.5 F L 64 20 100/48 L 06/15/24 02:03 98.1 F 68 18 98/53 L 06/15/24 00:00 70 18 L 18 107/42 L 06/14/24 23:15 89/53 L 06/14/24 22:00 97.3 F L 73 16 06/14/24 21:30 77 16 101/53 L 06/14/24 21:00 75 16 87/50 L BP Pulse Ox O2 Del Method O2 Flow Rate 06/15/24 08:22 06/15/24 07:16 95 Oxymask 5 06/15/24 06:01 06/15/24 04:08 94 Nasal Cannula 5 06/15/24 02:03 96 Nasal Cannula 6 06/15/24 00:00 96 Nasal Cannula 5 06/14/24 23:15 06/14/24 22:00 85/48 L 98 Nasal Cannula 5 06/14/24 21:30 96 Nasal Cannula 5 06/14/24 21:00 96 Nasal Cannula 5 Results CBC w Diff Results: RBC 2.91 M/uL (4.70-6.10) L 06/15/24 WBC 9.78 K/ul (4.8-10.8) 06/15/24 Hgb 8.3 g/dl (14.0-18.0) L 06/15/24 Hct 26.2 % (42.0-52.0) L 06/15/24 MCV 90.4 fL (80.0-100.0) 06/15/24 MCH 28.2 pg (25.0-34.0) 06/15/24 MCHC 31.2 g/dL (32.0-36.0) L 06/15/24 RDW Standard Deviation 62.5 fL (36.4-46.3) H 06/15/24 RDW Coefficient of Variation 18.8 % (11.5-14.5) H 06/15/24 Plt Count 194 K/uL (130-400) 06/15/24 MPV 10.3 fL (9.4-12.4) 06/15/24 Neutrophils (%) (Auto) 91.1 % 06/15/24 Lymphocytes (%) (Auto) 4.0 % 06/15/24 Monocytes # (Auto) 0.45 K/uL (0.11-0.59) 06/15/24 Eosinophils # (Auto) 0.00 K/uL (0.00-0.50) 06/15/24 Immature Granulocyte % (Auto) 0.2 % 06/15/24 Neutrophils # (Auto) 8.91 K/uL (1.40-6.50) H 06/15/24 Lymphocytes # (Auto) 0.39 K/uL (1.20-3.40) L 06/15/24 Monocytes # (Auto) 0.45 K/uL (0.11-0.59) 06/15/24 Eosinophils # (Auto) 0.00 K/uL (0.00-0.50) 06/15/24 Basophils # (Auto) 0.01 K/uL (0.00-0.20) 06/15/24 Immature Granulocyte # (Auto) 0.02 K/uL (0.01-0.20) 5 Red Blood Cell Morphology Unremarkable 06/15/24 PG Care Time/CCT Total # of Minutes Spent Total Time Spent with Patient: Total time spent is greater than 50% in coordination of care (as documented) at patient's floor/unit and/or counseling patient: Coding Level of Care Code 43389 Post Operative Follow-Up Diagnoses Small bowel obstruction K56.609 Incarcerated ventral hernia K43.6
--- NOTE | 2024-06-15 12:24 | Hospitalist Progress Note ---
Date of Service June 15, 2024 Assessment & Plan (1) Incarcerated ventral hernia: Plan: 79-year-old male with history of recent DVT/PE, recurrent DVT/PE, CKD, HFpEF, DM 2 who presented with an incarcerated hernia requiring emergent surgical intervention. He is high risk due to active anticoagulation with Eliquis, recurrent DVT/PE, underlying CAD/HFpEF although near euvolemic at time of assessment, CKD, and insulin-dependent DM. Patient understands high risk of c omplications but requires emergent surgical intervention for an incarcerated hernia with associated elevated lactate and bowel obstruction. He will proceed emergently to surgical intervention as full code. Incarcerated Hernia, associated SBO S/p emergent surgical repair 06/14/2024 Dressings intact, some staining/bleeding marked overnight. Hemoglobin downtrending overnight, last check spontaneously uptrending Surgery following No return of flatus/BMs. Continue NGT, 1750 cc 24-hour output. Bishop converted to low-dose IV to prevent withdrawal. Hold for blood pressure parameters. Anemia Postoperative, downtrending several measurements and uptrending on recheck morning of 06/15. No current indication for transfusion. Continue serial monitoring daily, spot additional labs if needed for tachycardia/symptoms. No symptoms of anemia morning of 06/15 SBO With associated incarcerated hernia. NPO. Taken emergently to surgical intervention for hernia. Oral meds held. Beta-bishop converted to low-dose IV to prevent withdrawal. - IVFM while NPO other for fluid overload given history of diastolic CHF. Adjust fluids as needed, diuretics held. Chest x-ray pending to reevaluate for pulmonary edema Multimodal pain control + zofran Current DVT/PE Last right lower extremity DVT noted 05/2024 Eliquis held perioperatively. Reversal not recommended due to high recurrent clot risk. If stable anticipate resuming anticoagulation 06/16 Vena cava filter was discussed between surgery and vascular surgery, not recommended at this time. Precancerous pancreatic mass Patient with recent EUS and biopsy. Pending follow-up to [facility]. Records pending, per family report pancreatic mass is premalignant Patient has a indwelling bare-metal stent and plastic stent in place. No acute change in management of these HFpEF Last EF 55 to 60% echo 09/2023. Euvolemic Metoprolol, amlodipine continued Chronic right greater than left swelling with known DVT. Otherwise no significant pitting edema No acute ischemic symptoms or recent anginal symptoms EKG: Dual paced, no acute ischemic changes. Metoprolol converted to IV every 6 hours while NPObeta-bishop withdrawal Serial chest x-ray pending, adjust fluids versus diuretics as needed. IV fluids are continued while NPO CKD 4 Baseline creatinine Approximately 2.32.5 Creatinine on admission 1.96, 2.15 on 06/15 Trend daily DM2 Oral medications held Mounjaro held SSI as needed Patient had several hypoglycemic episodes following surgery, received dextrose and D5 was added to maintenance fluids. Every hour checks with x-rays as needed were ordered, can be spaced to every 4 hours now that he has several serial checks greater than 80. Basal insulin has been held Hypothyroidism Synthroid held. Resume once able to tolerate n.p.o., can convert to 70% IV dose reduced formulation if with prolonged n.p.o. status DVT prophylaxis: Anticoagulation dissipate to be resumed 06/16 Diet: N.p.o. Disposition: PCU CODE STATUS: Full code. Informed with patient at bedside (2) Small bowel obstruction: (3) Mass of head of pancreas: (4) Chronic kidney disease, stage IV (severe): (5) Acute blood loss anemia: Admission and Anticipated Discharge Date Admission Date: June 14, 2024 Subjective Seen at the bedside. Reports he feels "terrible, and surgery have a tube to be ", but little better than yesterday. He has some discomfort at his Mariee site but which seems to be draining well. Denies abdominal pain. Denies lightheadedness, dizziness. Denies chest pain. Denies shortness of breath. Reports that he slept okay last night did not notice any shortness of breath overnight. No flatus. No BM Physical Exam Physical Exam: General: A&Ox3. NAD. Cooperative. HEENT: Atraumatic, normocephalic. Vision and hearing are grossly intact. Nasal cannula in place. NGT in place Pulm: Lungs are diminished but without overt rales/crackles/wheezing symmetrical chest rise. No increased work of breathing. No respiratory distress. Cardiac: RRR, -mrg. Radial pulses intact and symmetrical. Abdominal: Abdominal dressing is with expanded area of bleeding/staining, no active bleeding at time of assessment. Appropriately tender around the surgical site but without rebound/guarding Extremities: Right calf with increased leg circumference compared to the left. Trace ankle edema Results & Data Results & Data Vital Signs (Past 12 Hours) Vital Signs Temp Pulse Pulse Pulse Resp BP BP 06/15/24 12:09 73 127/58 L 06/15/24 11:10 36.8 C 72 18 130/66 06/15/24 08:22 66 06/15/24 07:30 06/15/24 07:16 36.7 C 71 18 108/44 L 06/15/24 06:01 99/55 L 06/15/24 04:08 36.4 C L 64 20 100/48 L 06/15/24 02:03 36.7 C 68 18 98/53 L Pulse Ox O2 Del Method O2 Flow Rate 06/15/24 12:09 06/15/24 11:10 96 Nasal Cannula 5 06/15/24 08:22 06/15/24 07:30 Nasal Cannula 5 06/15/24 07:16 95 Oxymask 5 06/15/24 06:01 06/15/24 04:08 94 Nasal Cannula 5 06/15/24 02:03 96 Nasal Cannula 6 PG Care Time/CCT Total # of Minutes Spent Total Time Spent with Patient: Total time spent is greater than 50% in coordination of care (as documented) at patient's floor/unit and/or counseling patient: Coding Level of Care Code 13184 SUB INP/OBS CARE 3/50MIN Diagnoses Incarcerated ventral hernia K43.6 Small bowel obstruction K56.609 Mass of head of pancreas K86.89 Chronic kidney disease, stage IV (severe) N18.4 Acute blood loss anemia D62
--- NOTE | 2024-06-15 13:11 | XRay Report ---
XR chest 1V portable CLINICAL HISTORY: hypoxia, pulm edema eval COMPARISON STUDY: 06/14/2024 FINDINGS: Single view chest demonstrates a new right pleural effusion and progressive perihilar hazin ess and pulmonary vascular congestion consistent with CHF. A dual-lead pacemaker is once again noted entering from the right. There is an enteric tube present with the tip not visualized due to underpen etration. IMPRESSION: Findings consistent with CHF with a developing right pleural effusion. Enteric tube in p lace but the tip is not visualized due to underpenetration and likely positioning in the abdomen. ACT 112: Negative or not required by law. Electronically signed by: Melody Timmons M.D. 06/15/2024 1:09 PM
--- NOTE | 2024-06-15 13:25 | Pharmacy Report ---
Pharmacy Glycemic Short Note 2 - Date of Service June 15, 2024 - Glycemic Short BSG Results (Last 24 hours): 06/14/24 06/14/24 06/14/24 16:26 16:29 16:46 Glucose POC Glucose 57 L* 54 L* 86 06/14/24 06/14/24 06/14/24 17:45 17:47 18:03 Glucose POC Glucose 61 L* 69 L* 100 H 06/14/24 06/14/24 06/14/24 18:35 19:33 20:27 Glucose POC Glucose 78 77 70 06/14/24 06/14/24 06/15/24 21:31 23:08 00:39 Glucose POC Glucose 67 L* 101 H 72 06/15/24 06/15/24 06/15/24 01:24 02:29 03:18 Glucose POC Glucose 76 64 L* 93 06/15/24 06/15/24 06/15/24 03:52 04:25 05:12 Glucose 82 POC Glucose 86 78 06/15/24 06/15/24 06/15/24 06:11 07:13 09:11 Glucose POC Glucose 95 87 87 OUTPATIENT ANTIDIABETIC REGIMEN: * Tresiba 40 units SQ daily * Admelog SSI * Jardiance 25mg po daily * Mounjaro 5mg SQ weekly HbA1c: 7.4% on 05/10/24 ASSESSMENT: * 79 year old male presented to ED 06/14 with concern for vomiting over several days. Patient was found to have incarcerated periumbilical hernia with supplemental omental/small bowel incarceration. Patient sent for emergent surgery last evening and pharmacy was consulted for glycemic management postop as patient had persistent hypoglycemia. (POD #1) Unclear when/how much insulin was given prior to admit. * Initial BSG yesterday afternoon was 57mg/dL. Patient received 25ml D50% x 2 and BSG pat to 101mg/dL at 2308. BSG dropped again and by 0229 was 64mg/dL. Another 25ml of d50% was given and subsequent BSG was 93mg/dL. * BSG this morning at 0713 was still only 87mg/dL. * Patient is currently still NPO and has D5LR running at 125ml/hr. No basal insulin is running currently and a very loose bolus insulin regimen is ordered incase his BSG would start to rise. PLAN FOR INPATIENT GLYCEMIC CONTROL: * Hold outpatient diabetes medications * Basal insulin * hold for now * Bolus insulin * NovoLog per scale ACHS or Q6hrs while NPO * Goal Range: Low 140 mg/dL - High 180 mg/dL * Correction Factor: 50 mg/dL/unit * Nutritional / Prandial insulin per carb ratio of 1 unit per 25 grams CHO consumed
[2024-06-15] MEDS: FUROSEMIDE INJ 20 MG/2 ML VIAL IV SCH (16:23)
[2024-06-15] MEDS: INSULIN ASPART PER UNIT CHARGE SC SCH (17:57)
[2024-06-16 07:03] LABS: Hematocrit (blood only) 24.6 % (42.0-52.0); Hemoglobin 7.8 g/dl (14.0-18.0); Mean Corpuscular Hemoglobin 28.6 pg (25.0-34.0); Mean Corpuscular Hgb Conc 31.7 g/dL (32.0-36.0); Mean Corpuscular Volume 90.1 fL (80.0-100.0); Mean Platelet Volume 10.7 fL (9.4-12.4); Platelet Count 214 K/uL (130-400); RDW Coefficient of Variation 18.6 % (11.5-14.5); RDW Standard Deviation 62.1 fL (36.4-46.3); Red Blood Count 2.73 M/uL (4.70-6.10); White Blood Count 13.19 K/ul (4.8-10.8)
[2024-06-16 07:35] LABS: Albumin Level 2.5 gm/dl (3.4-5.0); Bilirubin,Total 1.4 mg/dl (0.2-1.0); Calcium 7.8 mg/dl (8.6-10.3); Potassium 3.4 mmol/L (3.5-5.1)
[2024-06-16 07:41] LABS: BUN Creatinine Ratio 16.2 (10-20); Creatinine Clr Calc Pharmacy 32.8 ml/min; Globulin 2.6 gm/dl (2.5-4.0); Total Protein 5.1 gm/dl (6.0-8.3)
[2024-06-16 08:02] LABS: Basophils # (auto) 0.02 K/uL (0.00-0.20); Basophils % (auto) 0.2 %; Eosinophils # (auto) 0.14 K/uL (0.00-0.50); Eosinophils % (auto) 1.1 %; Immature Granulocytes # (auto) 0.07 K/uL (0.01-0.20); Immature Granulocytes % (auto) 0.5 %; Lymphocytes % (auto) 4.5 %; Monocytes # (auto) 0.42 K/uL (0.11-0.59); Monocytes % (auto) 3.2 %; Neutrophils # (auto) 11.94 K/uL (1.40-6.50); Neutrophils % (auto) 90.5 %; Polychromasia 1+
[2024-06-16] MEDS: FUROSEMIDE 40 MG/4 ML VIAL IV SCH ×2 (08:09→16:50)
[2024-06-16] MEDS: PIPERACILLIN/TAZOBACTAM 4.5 GM/100 ML BAG IV ONE (08:36)
--- NOTE | 2024-06-16 09:25 | Pharmacy Report ---
Pharmacy Glycemic Sign Off Nt - Date of Service June 16, 2024 - Assessment & Plan ASSESSMENT: * Pharmacy was consulted by Dr Carias on 06/14/24 for glycemic control and to write orders per [facility] inpatient glycemic control protocol. * Major changes made by pharmacy to antidiabetic regimen include: * Addition of conservatively dosed Novolog * Patient has been receiving/requiring 0 units of insulin per day for adequate glycemic control * BSGs ranging 49-128 mg/dl * Dextrose-containing IV fluids were being administered, now discontinued due to volume overload (pleural effusion noted). Using D50W boluses for hypoglycemia. PLAN FOR INPATIENT GLYCEMIC CONTROL: No changes needed to current regimen. * Continue to hold basal/bolus insulin at this time * Pharmacy is signing off of glycemic consult and will no longer be making adjustments to inpatient regimen. Please feel free to re-consult if needed. Thank you.
[2024-06-16] MEDS: IRON SUCROSE 300 MG in SODIUM CHLORIDE 0.9% 250 ML IV ONE (09:39)
--- NOTE | 2024-06-16 10:25 | Surgery Progress Note ---
Date of Service June 16, 2024 Assessment & Plan (1) Incarcerated hernia: Plan: All things considered I feel he is doing well particular from the surgical standpoint. We will give him a trial of clear liquids today and see how he does. We will also consult physical therapy as well as we will need to increase his activity level. Dr. Liu covering for weekend Admission and Anticipated Discharge Date Admission Date: June 14, 2024 Maxine Garrett is now postoperative day #2. States that his abdominal pain is okay. He did pull out his NG tube overnight. He denies any nausea Physical Exam Physical Exam: Alert although he does not converse much. Appears comfortable Abdomen is soft. His incisions are all clean dry intact with no sign of infection Results & Data Vital Signs (Past 12 Hours) Vital Signs Temp Pulse Pulse Resp BP BP Pulse Ox 06/16/24 08:05 72 06/16/24 07:36 36.9 C 77 18 112/56 L 98 06/16/24 07:21 72 06/16/24 06:16 78 125/66 06/16/24 04:05 36.6 C 73 18 113/55 L 96 06/16/24 00:30 72 102/54 L 06/16/24 00:15 86 105/54 L 06/16/24 00:11 36.6 C 86 20 105/54 L 95 O2 Del Method O2 Flow Rate 06/16/24 08:05 06/16/24 07:36 Nasal Cannula 5 06/16/24 07:21 06/16/24 06:16 06/16/24 04:05 Nasal Cannula 5 06/16/24 00:30 06/16/24 00:15 06/16/24 00:11 Nasal Cannula 2 PG Care Time/CCT Total # of Minutes Spent Total Time Spent with Patient: Total time spent is greater than 50% in coordination of care (as documented) at patient's floor/unit and/or counseling patient: Coding Level of Care Code 71325 Post Operative Follow-Up Diagnoses Incarcerated hernia K46.0
[2024-06-16] MEDS ORDERED: MICONAZOLE NITRATE POWDER 85 GM EXT PRN (10:28)
--- NOTE | 2024-06-16 10:45 | Hospitalist Progress Note ---
Date of Service June 16, 2024 Assessment & Plan (1) Incarcerated ventral hernia: Plan: 79-year-old male with history of recent DVT/PE, recurrent DVT/PE, CKD, HFpEF, DM 2 who presented with an incarcerated hernia requiring emergent surgical intervention. He is high risk due to active anticoagulation with Eliquis, recurrent DVT/PE, underlying CAD/HFpEF although near euvolemic at time of assessment, CKD, and insulin-dependent DM. Patient understands high risk of c omplications but requires emergent surgical intervention for an incarcerated hernia with associated elevated lactate and bowel obstruction. He will proceed emergently to surgical intervention as full code. Incarcerated Hernia, associated SBO S/p emergent surgical repair 06/14/2024 Dressings intact, stable Surgery following Bishop converted to low-dose IV to prevent withdrawal. Hold for blood pressure parameters. Patient removed NGT this morning however has no nausea/vomiting and return flatus. Defer replacement unless symptomatic, and will be advanced to clears today per surgical recommendations Anemia Postoperative, downtrending several measurements and uptrending on recheck morning of 06/15. Downtrending again 06/16 although is with some increased volume overload and is net positive suspect some dilution Review of prior iron studies were within normal ferritin however low transferrin saturation. Suspect his ferritin is elevated in context of his multiple illnesses, acute/subacute DVT and he does have underlying iron deficiency Venofer ordered. Discussed risk/benefits of Venofer in the setting of potential infections however given that he is on broad coverage with antibiotics and is at significant risk of both complications of his anemia and the need to be on anticoagulation if he can be stable with his subacute DVTs that the be nefit of Venofer outweighs the risk. Patient agreeable and will give 300 mg infusions daily up to 3. H&H is ordered, can transfuse if needed however this is not currently indicated. Initially in the setting of volume overload and lack of tachycardia would not transfuse unless either under 7 versus 8 with ischemia, or acutely symptomatic SBO With associated incarcerated hernia. NPO. Taken emergently to surgical intervention for hernia. Oral meds held. Beta-bishop converted to low-dose IV to prevent withdrawal. -Progressing. NGT removed. Progressed to clears. Return of flatus but without BM. Recommend patient be up to chair 3 times daily. If tolerating clears add bowel regimen He is afebrile and without fever/chills/sweats. Does have some abdominal discomfort and uptrending leukocytosis. Leukocytosis may be reactive however with complex clinical course, GI intervention, abdominal discomfort and high risk of morbidity from complications clindamycin converted empirically to Zosyn until clearly stable and improving. He is not septic at time of assessment Current DVT/PE Last right lower extremity DVT noted 05/2024 Eliquis held perioperatively. Reversal not recommended due to high recurrent clot risk Some downtrend without overt acute bleeding, suspect dilutional with some iron deficiency. Recheck H&H scheduled for this afternoon. If stable will resume Eliquis this evening Precancerous pancreatic mass Patient with recent EUS and biopsy. Pending follow-up to [facility]. Records pending, per family report pancreatic mass is premalignant Patient has a indwelling bare-metal stent and plastic stent in place. No acute change in management of these HFpEF Last EF 55 to 60% echo 09/2023. Euvolemic Metoprolol continued as IV. If p.o. intake improves and remained stable we will switch back to p.o. Amlodipine remains held for borderline hypotension Chronic right greater than left swelling with known DVT. Otherwise no significant pitting edema No acute ischemic symptoms or recent anginal symptoms EKG: Dual paced, no acute ischemic changes. Metoprolol converted to IV every 6 hours while NPObeta-bishop withdrawal Evidence of acute volume overload. Inadequate output to 20 mg IV of Lasix (patient was on 10 mg p.o. 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 Dose increased to 60 with brisk output. Anticipate continuing Lasix 40-60 mg twice daily 17 as tolerated until euvolemic CKD 4 Baseline creatinine approximately 2.32.5 Creatinine remains at baseline DM2 Oral medications held Mounjaro held SSI as needed. This is currently held for hypoglycemic episodes Patient had several hypoglycemic episodes following surgery, received dextrose and D5 was added to maintenance fluids. Every hour checks with x-rays as needed were ordered, can be spaced to every 4 hours now that he has several serial checks greater than 80. Basal insulin has been held. ? Relative adrenal insufficiency as otherwise discussed ? Relative adrenal insufficiency Random cortisol 16.7 is within indeterminate range, although would suspect this to be more elevated given significant degree of surgical stress, hypotension, and acute illness. With his persistent borderline hypotension and recurrent hypoglycemia with all antiglycemic's held will trial a short course of hydrocortisone If this does not resolve/improve and can follow-up for a ACTH stimulation test. Will follow clinically for now Hypothyroidism Synthroid resumed DVT prophylaxis: Anticoagulation dissipate to be resumed 06/16 Diet: N.p.o. Disposition: PCU CODE STATUS: Full code. Informed with patient at bedside (2) Small bowel obstruction: (3) Mass of head of pancreas: (4) Chronic kidney disease, stage IV (severe): (5) Acute blood loss anemia: Admission and Anticipated Discharge Date Admission Date: June 14, 2024 Subjective Seen at the bedside today. Some abdominal pain around his incision, stable staining of his dressings. Denies bleeding Denies lightheadedness/dizziness He does not feel short of breath, but remains on 5 L nasal cannula Denies chest pain chest pressure Denies bleeding 24-hour chart review with net balance 900 cc positive, 1300 cc of output. Discussed with nursing. Patient pulled out his NG tube this morning. He reports that he does not have any nausea vomiting. Is starting to have flatus today Physical Exam Physical Exam: General: A&Ox3. NAD. Cooperative. HEENT: Atraumatic, normocephalic. Vision and hearing are grossly intact. Nasal cannula in place. NGT no longer in place Pulm: Lungs are diminished, basilar crackles are present today no increased work of breathing. No respiratory distress. Cardiac: RRR, -mrg. Radial pulses intact and symmetrical. Abdominal: Abdomen appropriately tender around surgical site. Dressing remain in place without new/expanded staining or bleeding. Extremities: Right calf with increased leg circumference compared to the left. Mild ankle edema today Results & Data Results & Data Vital Signs (Past 12 Hours) Vital Signs Temp Pulse Pulse Resp BP BP Pulse Ox 06/16/24 08:05 72 06/16/24 07:36 36.9 C 77 18 112/56 L 98 06/16/24 07:21 72 06/16/24 06:16 78 125/66 06/16/24 04:05 36.6 C 73 18 113/55 L 96 06/16/24 00:30 72 102/54 L 06/16/24 00:15 86 105/54 L 06/16/24 00:11 36.6 C 86 20 105/54 L 95 O2 Del Method O2 Flow Rate 06/16/24 08:05 06/16/24 07:36 Nasal Cannula 5 06/16/24 07:21 06/16/24 06:16 06/16/24 04:05 Nasal Cannula 5 06/16/24 00:30 06/16/24 00:15 06/16/24 00:11 Nasal Cannula 2 PG Care Time/CCT Total # of Minutes Spent Total Time Spent with Patient: Total time spent is greater than 50% in coordination of care (as documented) at patient's floor/unit and/or counseling patient: Coding Level of Care Code 38642 SUB INP/OBS CARE 3/50MIN Diagnoses Incarcerated ventral hernia K43.6 Small bowel obstruction K56.609 Mass of head of pancreas K86.89 Chronic kidney disease, stage IV (severe) N18.4 Acute blood loss anemia D62
[2024-06-16] MEDS: HYDROCORTISONE SOD 100 MG in SYRINGE 0 ML IV STA (11:20)
[2024-06-16] MEDS: CARBOHYDRATES FOR HYPOGLYCEMIA PO PRN (11:33)
[2024-06-16] MEDS ORDERED: Nursing to Pharmacy Communication SCH (14:30)
[2024-06-16] MEDS: PIPERACILLIN/TAZOBACTAM 4.5 GM/100 ML BAG IV SCH (14:38)
[2024-06-16 15:10] LABS: Hematocrit (blood only) 27.2 % (42.0-52.0); Hemoglobin 8.6 g/dl (14.0-18.0)
--- NOTE | 2024-06-16 17:08 | Cardiology Consultation ---
Date of Consultation June 16, 2024 Assessment & Plan (1) PAT (paroxysmal atrial tachycardia): (2) Cardiac pacemaker: (3) CHF (congestive heart failure): Plan 79-year-old male with complex history including known conduction system disease status post dual-chamber pacemaker 2014 with recent generator exchange March 2024, chronic diastolic heart failure, CKD , past and recent DVT and pulmonary emboli on chronic anticoagulation. Patient hospitalized with acute bowel obstruction, incarcerated periumbilical hernia undergoing urgent surgery on 06/14/2024. Patient slowly recovering postoperatively but making progress. Telemetry demonstrated atrial sensed and ventricular paced rhythm predominantly with multiple short salvos this afternoon of probable atrial tachycardia with pacemaker pacing at upper limits of its device setting at 120 bpm. No acute hemodynamic findings or cardiac concerns Has been treated for probable component of diastolic heart failure/volume overload receiving 20 mg IV furosemide yesterday 60 mg IV this morning and 40 mg this p.m. Recommendations 1. Paroxysmal atrial tachycardia with ventricular pacing. Device interrogation in progress. Patient now taking p.o. will discontinue IV metoprolol. Begin metoprolol succinate 50 mg twice per day. Evening dose given now. Will treat hypokalemia with 40 meq p.o. potassium now Repeat BMP in a.m. 2. Acute on chronic diastolic heart failure: Will hold IV furosemide after evening dose this evening and reassess in a.m. Metoprolol succinate resumed: Would continue to hold amlodipine, losartan 3. Volume overload/right pleural effusion possible component of atelectasis by review of x-ray. Incentive spirometry ordered patient has responded to IV diuretics. Would repeat chest x-ray in a.m. given difficult examination 4. DVT pulmonary emboli anticoagulation with IV heparin ongoing History of Present Illness Reason for Consultation: Arrhythmia Attending Physician: Raza Carias MD History of Present Illness Patient is a 79-year-old male with complex cardiac issues which include 1. Remote coronary artery disease status post PCI left anterior descending 2012, single-vessel disease 2. Complete heart block status post dual-chamber pacemaker insertion December 2014, generator exchange 04/03/2024 3. Hypertension 4. Prior pulmonary emboli and DVT on chronic anticoagulation, most recent DVT May 2024 right leg 5. 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 Chronic diastolic heart failure 7. Type 2 diabetes mellitus, Insulin requiring 8. CKD stage IIIb Patient referred for evaluation with notably complex recent history. Recent GI procedures for possible early pancreatic neoplasm. Admitted acutely this admission with incarcerated periumbilical Hernia requiring urgent surgery. Slowly recovering postoperatively but making progress. Has been receiving IV antibiotics, IV beta-razia and Lasix. Mild persistent oxygen demands. Diet has been advanced to clear liquids and medications. This evening noted on telemetry to have brief runs of probable atrial ta chycardia with paced rhythm at upper limits of pacemaker device at 120 bpm. Spontaneously converted each time patient asymptomatic. He denies any chest pains, tachypalpitations still with mild wet cough. Mild abdominal pain but no acute worsening or discomfort. No worsening hypoxia or dyspnea. Anticoagulation resumed Allergies Allergy/AdvReac Type Severity Reaction Status Date / Time cefaclor AdvReac Intermediate RASH Verified 06/14/24 14:05 oxycodone AdvReac Intermediate "I GET ALL Verified 06/14/24 14:05 GOOFY" Home Medications Medication Instructions Recorded Confirmed Type sharps container-insulin syringe ##1 10/05/18 01/12/24 History and needle 1 mL 30 gauge x 5/16" aspirin 81 mg tablet,delayed 81 mg PO QAM 05/28/21 06/06/24 History release flash glucose scanning reader 07/04/21 01/12/24 History (FreeStyle Maisha 2 [place]) lancets 30 gauge (OneTouch Delica 07/04/21 01/12/24 History Plus Lancet) flash glucose sensor (FreeStyle #2 ea 07/09/21 01/12/24 Rx Maisha 2 Sensor kit) pen needle, diabetic 32 gauge x #100 ea 05/27/22 01/12/24 Rx 1/4" (BD Ultra-Fine Micro Pen Needle) apixaban 5 mg tablet (Eliquis) 5 mg PO BID #180 tabs 04/28/23 06/06/24 Rx nitroglycerin 0.4 mg sublingual 0.4 mg sublingual Q5M PRN Chest 11/11/23 06/06/24 History tablet Pain ondansetron 4 mg disintegrating 4 mg PO Q8H PRN Nausea And Vomiting 11/11/23 06/06/24 History tablet pantoprazole 40 mg tablet,delayed 40 mg PO QAM 11/11/23 06/06/24 History release empagliflozin 25 mg tablet 25 mg PO DAILY 12/11/23 06/06/24 History (Jardiance) tirzepatide 5 mg/0.5 mL 5 mg subcut WK 12/11/23 06/06/24 History subcutaneous pen injector (Keyla) amlodipine 5 mg tablet (Norvasc) 5 mg PO QAM #30 tabs 12/20/23 06/06/24 Rx insulin lispro 100 unit/mL 1 sliding scale dose subcut 12/20/23 06/06/24 Rx subcutaneous pen (Admelog SolLeonel USEASDIRECTD #0 mL U-) metoprolol succinate 50 mg 50 mg PO BID #60 tabs 12/20/23 06/06/24 Rx tablet,extended release 24 hr sennosides 8.6 mg tablet (Senokot) 17.2 mg (2 x 8.6 mg) PO QAM #60 12/20/23 06/06/24 Rx tabs atorvastatin 80 mg tablet 80 mg PO HS 05/09/24 06/06/24 History calcitriol 0.5 mcg capsule 0.5 mcg PO QAM 05/09/24 06/06/24 History furosemide 20 mg tablet 10 mg PO QAM 05/09/24 06/06/24 History gabapentin 300 mg capsule 300 mg PO HS 05/09/24 06/06/24 History levothyroxine 112 mcg capsule 112 mcg PO QAM 05/09/24 06/06/24 History magnesium oxide 400 mg PO QAM 05/09/24 06/06/24 History potassium chloride 10 mEq 10 meq PO QAM 05/09/24 06/06/24 History tablet,extended release sertraline 50 mg tablet 75 mg PO QAM 05/09/24 06/06/24 History terazosin 10 mg capsule 10 mg PO QAM 05/09/24 06/06/24 History losartan 50 mg tablet 50 mg PO QAM 05/14/24 06/06/24 History polyethylene glycol 3350 17 gram 17 g PO QAM 05/14/24 06/06/24 History oral powder packet (ClearLax) cholestyramine-aspartame 4 gram 1 ea PO BID #60 ea 05/19/24 06/06/24 Rx oral powder for susp in a packet (Prevalite) acetaminophen 325 mg tablet 650 mg PO Q6H PRN pain/temp>100 06/06/24 06/06/24 History carbamide peroxide 6.5 % ear drops 5 drp otic (ear) BID 06/06/24 06/06/24 History (Ear Wax Drops) ciprofloxacin 0.3 %-dexamethasone 4 drp OTL BID 06/06/24 06/06/24 History 0.1 % ear drops,suspension ciprofloxacin HCl 500 mg tablet 500 mg PO BID 06/06/24 06/06/24 History insulin degludec 100 unit/mL (3 40 unit subcut DAILY 06/06/24 06/06/24 History mL) subcutaneous pen (Tresiba FlexTouch U-100 insulin) neomycin 1.75 mg-polymyxin 10,000 2 drp OPB TID 06/06/24 06/06/24 History unit-gramicidin 0.025mg/mL eye drops Patient History Medical History (Updated 06/16/24 @ 18:04 by Royce Torre MD) Chronic kidney disease, stage III (moderate) Colon polyps Elevated transaminase level Hematuria Tinea pedis of both feet Vitamin D deficiency Surgical History (Updated 06/16/24 @ 12:17 by Kymberly Edmond RN) S/P small bowel resection (06/14/24) Laparoscopic Converted to Open Small Bowel Resection, Incarcerated Ventral Hernia Repair(Not Applicable) - Og Benson DO History of incision and drainage (12/15/23) Incision and Drainage of Scalp Abscess x 2(Not Applicable) - Sarbjit Bai DO History of colonoscopy History of tonsillectomy History of mandibular surgery History of cholecystectomy History of coronary artery stent placement History of cardiac cath History of cataract surgery Family History Father Lung cancer Brother Lung disease Lung cancer Denies family history of Ovarian cancer Prostate cancer Myocardial infarction Breast cancer Colorectal cancer Social History Smoking Status: Never smoker Age Started Using Tobacco: 20; Age Quit Using Tobacco: 21; Second Hand Exposure: Yes; Hx Alcohol Use: No Hx Substance Use: No Preferred Language: Cambodian Communication Ability: Effective Visual Impairment: No Limitations Hearing Ability: Use of Hearing Aid Solar Consultant Required: No Beliefs That Will Affect Care: None marital status: / Current Living Situation: Personal Care Facility Current Living Situation Comment: Di current occupational status: retired 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 How many Children do You have: 2 Other Information That Helps Us Care for You: No Feels Safe at Home: Yes Safety Concerns: Feels Safe At This Time Childhood Exposure to Second-Hand Smoke: No Diet: regular Diet Comment: Regular Diet caffeine: No during the past year weight has: remained stable Dental Care, Regularly: No Physical Activity Frequency: Does not Exercise Seatbelt Use: sometimes Sunscreen Use: No Assistive Devices: Wheelchair Review of Systems Review of Systems: All systems reviewed & are unremarkable except as noted in HPI & below Physical Exam Constitutional: + obese; no acute distress Eyes: PERRL, conjunctivae normal, anicteric sclerae Neck: + thick neck Respiratory: + cough (Mild rhonchorous cough); no lab ored breathing and not tachypneic Cardiovascular: Rate/Rhythm: regular rate and regular rhythm Chest (Breasts): Chest: + pacemaker (No irritation at device site) Gastrointestinal (Abdomen): Percussion/Palpation: abdomen soft; abdomen nontender and no guarding Surgical incisions healing Musculoskeletal: no cyanosis or clubbing, extremities motor strength 5/5 Results & Data Vital Signs (Past 12 Hours) Vital Signs Temp Pulse Pulse Pulse Resp BP BP 06/16/24 16:51 36.6 C 84 18 133/54 L 06/16/24 11:42 77 06/16/24 11:36 78 18 105/52 L 06/16/24 11:27 71 06/16/24 08:05 72 06/16/24 07:36 36.9 C 77 18 112/56 L 06/16/24 07:30 06/16/24 07:21 72 06/16/24 06:16 78 125/66 Pulse Ox O2 Del Method O2 Flow Rate 06/16/24 16:51 96 Nasal Cannula 1.0 06/16/24 11:42 06/16/24 11:36 96 Nasal Cannula 4 06/16/24 11:27 06/16/24 08:05 06/16/24 07:36 98 Nasal Cannula 5 06/16/24 07:30 Nasal Cannula 4 06/16/24 07:21 06/16/24 06:16 Laboratory Results Laboratory Results - last 24 hr 03/06/15/24 06/15/24 17:56 20:28 20:46 WBC RBC Hgb Hct MCV MCH MCHC RDW Std Deviation RDW Coeff of Rito Plt Count MPV Immature Gran % (Auto) Neut % (Auto) Lymph % (Auto) [place] % (Auto) Eos % (Auto) Baso % (Auto) Neut # (Auto) Lymph # (Auto) [place] # (Auto) Eos # (Auto) Baso # (Auto) Immature Gran # (Auto) Polychromasia Sodium Potassium Chloride Carbon Dioxide Anion Gap BUN Creatinine Est Cr Clr Drug Dosing eGFR BUN/Creatinine Ratio Glucose POC Glucose 103 H 49 L* 128 H Calcium Total Bilirubin AST ALT Alkaline Phosphatase Total Protein Albumin Globulin Albumin/Globulin Ratio Random Cortisol Blood Type Antibody Screen 06/16/24 06/16/24 06/16/24 00:04 00:39 03:45 WBC RBC Hgb Hct MCV MCH MCHC RDW Std Deviation RDW Coeff of Rito Plt Count MPV Immature Gran % (Auto) Neut % (Auto) Lymph % (Auto) [place] % (Auto) Eos % (Auto) Baso % (Auto) Neut # (Auto) Lymph # (Auto) [place] # (Auto) Eos # (Auto) Baso # (Auto) Immature Gran # (Auto) Polychromasia Sodium Potassium Chloride Carbon Dioxide Anion Gap BUN Creatinine Est Cr Clr Drug Dosing eGFR BUN/Creatinine Ratio Glucose POC Glucose 67 L* 87 50 L* Calcium Total Bilirubin AST ALT Alkaline Phosphatase Total Protein Albumin Globulin Albumin/Globulin Ratio Random Cortisol Blood Type Antibody Screen 06/16/24 06/16/24 06/16/24 04:12 06:01 06:30 WBC 13.19 H RBC 2.73 L Hgb 7.8 L Hct 24.6 L MCV 90.1 MCH 28.6 MCHC 31.7 L RDW Std Deviation 62.1 H RDW Coeff of Rito 18.6 H Plt Count 214 MPV 10.7 Immature Gran % (Auto) 0.5 Neut % (Auto) 90.5 Lymph % (Auto) 4.5 [place] % (Auto) 3.2 Eos % (Auto) 1.1 Baso % (Auto) 0.2 Neut # (Auto) 11.94 H Lymph # (Auto) 0.60 L [place] # (Auto) 0.42 Eos # (Auto) 0.14 Baso # (Auto) 0.02 Immature Gran # (Auto) 0.07 Polychromasia 1+ Sodium 140 Potassium 3.4 L Chloride 108 H Carbon Dioxide 28 Anion Gap 4 BUN 34 H Creatinine 2.10 H Est Cr Clr Drug Dosing 32.8 eGFR 31.82 BUN/Creatinine Ratio 16.2 Glucose 111 H POC Glucose 125 H 62 L* Calcium 7.8 L Total Bilirubin 1.4 H AST 26 ALT 25 Alkaline Phosphatase 382 H Total Protein 5.1 L Albumin 2.5 L Globulin 2.6 Albumin/Globulin Ratio 1.0 Random Cortisol Blood Type Antibody Screen 06/16/24 06/16/24 06/16/24 06:40 07:32 09:24 WBC RBC Hgb Hct MCV MCH MCHC RDW Std Deviation RDW Coeff of Rito Plt Count MPV Immature Gran % (Auto) Neut % (Auto) Lymph % (Auto) [place] % (Auto) Eos % (Auto) Baso % (Auto) Neut # (Auto) Lymph # (Auto) [place] # (Auto) Eos # (Auto) Baso # (Auto) Immature Gran # (Auto) Polychromasia Sodium Potassium Chloride Carbon Dioxide Anion Gap BUN Creatinine Est Cr Clr Drug Dosing eGFR BUN/Creatinine Ratio Glucose POC Glucose 104 H 83 Calcium Total Bilirubin AST ALT Alkaline Phosphatase Total Protein Albumin Globulin Albumin/Globulin Ratio Random Cortisol 16.74 Blood Type AB Positive Antibody Screen NEGATIVE 06/16/24 06/16/24 06/16/24 11:30 11:46 14:21 WBC RBC Hgb 8.6 L Hct 27.2 L MCV MCH MCHC RDW Std Deviation RDW Coeff of Rito Plt Count MPV Immature Gran % (Auto) Neut % (Auto) Lymph % (Auto) [place] % (Auto) Eos % (Auto) Baso % (Auto) Neut # (Auto) Lymph # (Auto) [place] # (Auto) Eos # (Auto) Baso # (Auto) Immature Gran # (Auto) Polychromasia Sodium Potassium Chloride Carbon Dioxide Anion Gap BUN Creatinine Est Cr Clr Drug Dosing eGFR BUN/Creatinine Ratio Glucose POC Glucose 55 L* 58 L* Calcium Total Bilirubin AST ALT Alkaline Phosphatase Total Protein Albumin Globulin Albumin/Globulin Ratio Random Cortisol Blood Type Antibody Screen 06/16/24 06/16/24 14:36 16:28 WBC RBC Hgb Hct MCV MCH MCHC RDW Std Deviation RDW Coeff of Rito Plt Count MPV Immature Gran % (Auto) Neut % (Auto) Lymph % (Auto) [place] % (Auto) Eos % (Auto) Baso % (Auto) Neut # (Auto) Lymph # (Auto) [place] # (Auto) Eos # (Auto) Baso # (Auto) Immature Gran # (Auto) Polychromasia Sodium Potassium Chloride Carbon Dioxide Anion Gap BUN Creatinine Est Cr Clr Drug Dosing eGFR BUN/Creatinine Ratio Glucose POC Glucose 129 H 150 H Calcium Total Bilirubin AST ALT Alkaline Phosphatase Total Protein Albumin Globulin Albumin/Globulin Ratio Random Cortisol Blood Type Antibody Screen Diagnostic Findings Pacemaker interrogation 04/13/2024 Battery life 10.1 years DDDR mode Echocardiogram 09/06/2023 The qualitative LV ejection fraction is 55-59% (normal). The right ventricular cavity is mildly dilated. The right ventricular systolic function is normal Mild mitral regurgitation is present. Mild tricuspid regurgitation is present.
[2024-06-16] MEDS: METOPROLOL SUCC 50MG EXT REL TAB PO SCH (17:31)
[2024-06-16] MEDS: HYDROCORTISONE SOD 50 MG in SYRINGE 0 ML IV SCH (17:34)
[2024-06-16] MEDS: HEPARIN 25000 UNIT/500 ML D5W 25,000 UNITS/500 ML BAG IV SCH (17:55)
[2024-06-16] MEDS: HEPARIN SOD (PORCINE) 1000 UNIT/ML IV ONE (17:55)
[2024-06-16 18:35] LABS: INR 1.3 (0.9-1.1); Partial Thromboplastin Ratio 1.5; Partial Thromboplastin Time 41 Seconds (21-31); Prothrombin Time 13.6 Seconds (9.0-12.0)
[2024-06-16] MEDS: POTASSIUM CHLORIDE CRTAB 20 MEQ TABCR PO ONE (18:38)
[2024-06-16] MEDS: Heparin IV Adult Wt-Based Standard w/ INITIAL Bolus Protocol IV SCH (21:13)
[2024-06-16] MEDS: ACETAMINOPHEN 500 MG TAB PO SCH (21:14)
--- NOTE | 2024-06-16 21:28 | Electrocardiogram Report ---
Test Reason : Blood Pressure : */* mmHG Vent. Rate : 73 BPM Atrial Rate : 73 BPM P-R Int : 156 ms QRS Dur : 172 ms QT Int : 498 ms P-R-T Axes : 63 -81 78 degrees QTcB Int : 548 ms Atrial-sensed ventricular-paced rhythm Premature ventricular complexes Abnormal ECG When compared with ECG of 14-Jun-2024 10:53, Premature ventricular complexes are now Present Vent. rate has increased by 9 bpm Confirmed by Froilan Mtz ([id number]) on 06/16/2024 9:27:40 PM Referred By: REFERRED SELF Confirmed By: Froilan Mtz
[2024-06-16 22:51] LABS: Hematocrit (blood only) 26.4 % (42.0-52.0); Hemoglobin 8.4 g/dl (14.0-18.0)
[2024-06-17 01:05] LABS: ANTI-Xa, UFH(UnfractionatedHep > 1.50 IU/ml (0.3-0.7)
[2024-06-17 02:45] LABS: ANTI-Xa, UFH(UnfractionatedHep > 1.50 IU/ml (0.3-0.7)
[2024-06-17 03:58] LABS: Hematocrit (blood only) 25.7 % (42.0-52.0); Hemoglobin 8.2 g/dl (14.0-18.0); Mean Corpuscular Hemoglobin 28.4 pg (25.0-34.0); Mean Corpuscular Hgb Conc 31.9 g/dL (32.0-36.0); Mean Corpuscular Volume 88.9 fL (80.0-100.0); Mean Platelet Volume 10.6 fL (9.4-12.4); Platelet Count 233 K/uL (130-400); RDW Coefficient of Variation 18.5 % (11.5-14.5); RDW Standard Deviation 60.7 fL (36.4-46.3); Red Blood Count 2.89 M/uL (4.70-6.10); White Blood Count 12.39 K/ul (4.8-10.8)
[2024-06-17 04:15] LABS: Basophils # (auto) 0.01 K/uL (0.00-0.20); Basophils % (auto) 0.1 %; Immature Granulocytes # (auto) 0.08 K/uL (0.01-0.20); Immature Granulocytes % (auto) 0.6 %; Lymphocytes # (auto) 0.43 K/uL (1.20-3.40); Lymphocytes % (auto) 3.5 %; Monocytes # (auto) 0.35 K/uL (0.11-0.59); Monocytes % (auto) 2.8 %; Neutrophils # (auto) 11.52 K/uL (1.40-6.50); Polychromasia 1+
[2024-06-17 04:43] LABS: Albumin Globulin Ratio 0.8 (0.9-2); Albumin Level 2.7 gm/dl (3.4-5.0); Bilirubin,Total 1.4 mg/dl (0.2-1.0); Creatinine Clr Calc Pharmacy 31.6 ml/min; Globulin 3.3 gm/dl (2.5-4.0); Potassium 3.7 mmol/L (3.5-5.1)
[2024-06-17 06:33] LABS: ANTI-Xa, UFH(UnfractionatedHep 0.75 IU/ml (0.3-0.7)
[2024-06-17] MEDS ORDERED: PHARMACY GLYCEMIC MGMT CONSULT PRN (07:05)
--- NOTE | 2024-06-17 07:41 | XRay Report ---
EXAM: XR chest 1V portable CLINICAL HISTORY: CHF. TECHNIQUE: An X-ray image of the chest is obtained in AP projection. COMPARISON: 06/15/2024 CR. FINDINGS: A peacemaker with two leads noted. Multiple ECG leads were noted. Pulmonary Parenchyma: Bilateral perihilar haziness with increased hilar broncho vascular markings, mostly vascular congestion. Stable. No evidence of pleural effusion. The heart is mildly enlarged. Bony Thorax: Diffuse osteopenia and degenerative changes. Soft Tissues: Soft tissues overlying the chest wall are unremarkable. IMPRESSION: 1. Bilateral perihilar haziness with increased hilar broncho vascular markings, mostly vascular congestion. Stable. 2. No pleural effusions. Interval improvement. 3. The NG tube is not seen. New. Electronically signed by Robel Way 06-17-2024 07:40 AM
[2024-06-17] MEDS: INSULIN ASPART PER UNIT CHARGE SC SCH ×2 (08:10→23:54)
[2024-06-17 08:38] LABS: ANTI-Xa, UFH(UnfractionatedHep 0.73 IU/ml (0.3-0.7)
[2024-06-17] MEDS: LANTUS PER UNIT CHARGE SQ ONE (09:36)
--- NOTE | 2024-06-17 09:43 | Cardiology Progress Note ---
Date of Service June 17, 2024 Assessment & Plan (1) PAT (paroxysmal atrial tachycardia): (2) Cardiac pacemaker: (3) CHF (congestive heart failure): Plan 79-year-old male with complex history including known conduction system disease status post dual-chamber pacemaker 2014 with recent generator exchange March 2024, chronic diastolic heart failure, CKD , past and recent DVT and pulmonary emboli on chronic anticoagulation. Patient hospitalized with acute bowel obstruction, incarcerated periumbilical hernia undergoing urgent surgery on 06/14/2024. Patient slowly recovering postoperatively but making progress. Telemetry demonstrated atrial sensed and ventricular paced rhythm predominantly with multiple short salvos this afternoon of probable atrial tachycardia with pacemaker pacing at upper limits of its device setting at 120 bpm. No acute hemodynamic findings or cardiac concerns Has been treated for probable component of diastolic heart failure/volume overload receiving 20 mg IV furosemide yesterday 60 mg IV this morning and 40 mg this p.m. Recommendations 1. Paroxysmal atrial tachycardia with ventricular pacing. Device interrogation in progress. Patient now taking p.o. will discontinue IV metoprolol. Begin metoprolol succinate 50 mg twice per day. Evening dose given now. Will treat hypokalemia with 40 meq p.o. potassium now Repeat BMP in a.m. 2. Acute on chronic diastolic heart failure: Will hold IV furosemide after evening dose this evening and reassess in a.m. Metoprolol succinate resumed: Would continue to hold amlodipine, losartan 3. Volume overload/right pleural effusion possible component of atelectasis by review of x-ray. Incentive spirometry ordered patient has responded to IV diuretics. Would repeat chest x-ray in a.m. given difficult examination 4. DVT pulmonary emboli anticoagulation with IV heparin ongoing 06/17/2024 1. Paroxysmal atrial tachycardia/paroxysmal atrial fibrillation with ventricular paced rhythm. Review of device interrogations recent and most past patient with intermittent atrial fibrillation and atrial tachycardia. Current exacerbation is likely brought on by acute illness/hypokalemia/hypoxia Improved after resuming oral beta-razia, potassium supplement Warrants chronic anticoagulation as for multiple reasons. GI/ surgical concerns appear to be improving. Moving bowels no nausea or vomiting taking medications well Recommendations: Continue metoprolol succinate 50 mg twice per day. Resume oral anticoagulation when stable Additional potassium today 20 mEq orally 2. Acute on chronic diastolic heart failure appears to be trending towards euvolemic. Chest x-ray improved. Will discontinue IV furosemide resume oral furosemide 20 mg p.o. daily 3. Complete heart block status post dual-chamber pacemaker insertion: Normal device function Admission and Anticipated Discharge Date Admission Date: June 14, 2024 Subjective Patient seen and examined, chart, medications, telemetry reviewed. Sitting out of bed in chair this morning. No abdominal pain or discomfort no dyspnea or shortness of breath oxygenating well on room air Telemetry with AV pacing. No further tachyarrhythmias Physical Exam Constitutional: + obese; no acute distress Eyes: PERRL, conjunctivae normal, anicteric sclerae Neck: + thick neck Respiratory: + cough (Mild rhonchorous cough); no lab ored breathing and not tachypneic Cardiovascular: Rate/Rhythm: regular rate and regular rhythm Chest (Breasts): Chest: + pacemaker (No irritation at device site) Gastrointestinal (Abdomen): Percussion/Palpation: abdomen soft; abdomen nontender and no guarding Musculoskeletal: no cyanosis or clubbing, extremities motor strength 5/5 Results & Data Vital Signs (Past 12 Hours) Vital Signs Temp Pulse Pulse Pulse Resp BP Pulse Ox 06/17/24 07:23 72 06/17/24 07:21 36.5 C 93 H 18 124/70 94 06/17/24 03:31 36.4 C L 78 16 136/69 92 06/16/24 23:22 36.6 C 75 18 147/74 H 93 06/16/24 23:20 83 O2 Del Method O2 Flow Rate 06/17/24 07:23 06/17/24 07:21 Room Air 06/17/24 03:31 Room Air 06/16/24 23:22 Nasal Cannula 1 06/16/24 23:20 Laboratory Results Laboratory Results - last 24 hr 06/16/24 06/16/24 06/16/24 09:24 11:30 11:46 WBC RBC Hgb Hct MCV MCH MCHC RDW Std Deviation RDW Coeff of Rito Plt Count MPV Immature Gran % (Auto) Neut % (Auto) Lymph % (Auto) [place] % (Auto) Eos % (Auto) Baso % (Auto) Neut # (Auto) Lymph # (Auto) [place] # (Auto) Eos # (Auto) Baso # (Auto) Immature Gran # (Auto) Polychromasia PT INR APTT PTT Ratio Heparin Anti-Xa, Unfract Sodium Potassium Chloride Carbon Dioxide Anion Gap BUN Creatinine Est Cr Clr Drug Dosing eGFR BUN/Creatinine Ratio Glucose POC Glucose 55 L* 58 L* Calcium Total Bilirubin AST ALT Alkaline Phosphatase Total Protein Albumin Globulin Albumin/Globulin Ratio Random Cortisol 16.74 Blood Type AB Positive Antibody Screen NEGATIVE 06/16/24 06/16/24 06/16/24 14:21 14:36 16:28 WBC RBC Hgb 8.6 L Hct 27.2 L MCV MCH MCHC RDW Std Deviation RDW Coeff of Rito Plt Count MPV Immature Gran % (Auto) Neut % (Auto) Lymph % (Auto) [place] % (Auto) Eos % (Auto) Baso % (Auto) Neut # (Auto) Lymph # (Auto) [place] # (Auto) Eos # (Auto) Baso # (Auto) Immature Gran # (Auto) Polychromasia PT INR APTT PTT Ratio Heparin Anti-Xa, Unfract Sodium Potassium Chloride Carbon Dioxide Anion Gap BUN Creatinine Est Cr Clr Drug Dosing eGFR BUN/Creatinine Ratio Glucose POC Glucose 129 H 150 H Calcium Total Bilirubin AST ALT Alkaline Phosphatase Total Protein Albumin Globulin Albumin/Globulin Ratio Random Cortisol Blood Type Antibody Screen 06/16/24 06/16/24 06/16/24 17:49 20:55 22:37 WBC RBC Hgb 8.4 L Hct 26.4 L MCV MCH MCHC RDW Std Deviation RDW Coeff of Rito Plt Count MPV Immature Gran % (Auto) Neut % (Auto) Lymph % (Auto) [place] % (Auto) Eos % (Auto) Baso % (Auto) Neut # (Auto) Lymph # (Auto) [place] # (Auto) Eos # (Auto) Baso # (Auto) Immature Gran # (Auto) Polychromasia PT 13.6 H INR 1.3 H APTT 41 H PTT Ratio 1.5 Heparin Anti-Xa, Unfract Sodium Potassium Chloride Carbon Dioxide Anion Gap BUN Creatinine Est Cr Clr Drug Dosing eGFR BUN/Creatinine Ratio Glucose POC Glucose 259 H Calcium Total Bilirubin AST ALT Alkaline Phosphatase Total Protein Albumin Globulin Albumin/Globulin Ratio Random Cortisol Blood Type Antibody Screen 06/17/24 06/17/24 06/17/24 00:09 00:12 01:44 WBC RBC Hgb Hct MCV MCH MCHC RDW Std Deviation RDW Coeff of Rito Plt Count MPV Immature Gran % (Auto) Neut % (Auto) Lymph % (Auto) [place] % (Auto) Eos % (Auto) Baso % (Auto) Neut # (Auto) Lymph # (Auto) [place] # (Auto) Eos # (Auto) Baso # (Auto) Immature Gran # (Auto) Polychromasia PT INR APTT PTT Ratio Heparin Anti-Xa, Unfract > 1.50 H* > 1.50 H* Sodium Potassium Chloride Carbon Dioxide Anion Gap BUN Creatinine Est Cr Clr Drug Dosing eGFR BUN/Creatinine Ratio Glucose POC Glucose 268 H Calcium Total Bilirubin AST ALT Alkaline Phosphatase Total Protein Albumin Globulin Albumin/Globulin Ratio Random Cortisol Blood Type Antibody Screen 06/17/24 06/17/24 06/17/24 03:38 05:37 05:46 WBC 12.39 H RBC 2.89 L Hgb 8.2 L Hct 25.7 L MCV 88.9 MCH 28.4 MCHC 31.9 L RDW Std Deviation 60.7 H RDW Coeff of Rito 18.5 H Plt Count 233 MPV 10.6 Immature Gran % (Auto) 0.6 Neut % (Auto) 93.0 Lymph % (Auto) 3.5 [place] % (Auto) 2.8 Eos % (Auto) 0.0 Baso % (Auto) 0.1 Neut # (Auto) 11.52 H Lymph # (Auto) 0.43 L [place] # (Auto) 0.35 Eos # (Auto) 0.00 Baso # (Auto) 0.01 Immature Gran # (Auto) 0.08 Polychromasia 1+ PT INR APTT PTT Ratio Heparin Anti-Xa, Unfract 1.00 H* 0.75 H* Sodium 139 Potassium 3.7 Chloride 104 Carbon Dioxide 28 Anion Gap 7 BUN 37 H Creatinine 2.18 H Est Cr Clr Drug Dosing 31.6 eGFR 30.43 BUN/Creatinine Ratio 17.0 Glucose 228 H POC Glucose 221 H Calcium 8.0 L Total Bilirubin 1.4 H AST 21 ALT 23 Alkaline Phosphatase 374 H Total Protein 6.0 Albumin 2.7 L Globulin 3.3 Albumin/Globulin Ratio 0.8 L Random Cortisol Blood Type Antibody Screen 06/17/24 06/17/24 06/17/24 07:12 07:29 09:11 WBC RBC Hgb Hct MCV MCH MCHC RDW Std Deviation RDW Coeff of Rito Plt Count MPV Immature Gran % (Auto) Neut % (Auto) Lymph % (Auto) [place] % (Auto) Eos % (Auto) Baso % (Auto) Neut # (Auto) Lymph # (Auto) [place] # (Auto) Eos # (Auto) Baso # (Auto) Immature Gran # (Auto) Polychromasia PT INR APTT PTT Ratio Heparin Anti-Xa, Unfract 0.73 H* Pending Sodium Potassium Chloride Carbon Dioxide Anion Gap BUN Creatinine Est Cr Clr Drug Dosing eGFR BUN/Creatinine Ratio Glucose POC Glucose 219 H Calcium Total Bilirubin AST ALT Alkaline Phosphatase Total Protein Albumin Globulin Albumin/Globulin Ratio Random Cortisol Blood Type Antibody Screen
[2024-06-17 10:08] LABS: ANTI-Xa, UFH(UnfractionatedHep 0.62 IU/ml (0.3-0.7)
[2024-06-17] MEDS: POTASSIUM CHLORIDE CRTAB 20 MEQ TABCR PO ONE (10:32)
--- NOTE | 2024-06-17 10:56 | Hospitalist Progress Note ---
Date of Service June 17, 2024 Assessment & Plan (1) Incarcerated ventral hernia: Plan: 79-year-old male with history of recent DVT/PE, recurrent DVT/PE, CKD, HFpEF, DM 2 who presented with an incarcerated hernia requiring emergent surgical intervention. He is high risk due to active anticoagulation with Eliquis, recurrent DVT/PE, underlying CAD/HFpEF although near euvolemic at time of assessment, CKD, and insulin-dependent DM. Patient understands high risk of c omplications but requires emergent surgical intervention for an incarcerated hernia with associated elevated lactate and bowel obstruction. He will proceed emergently to surgical intervention as full code. Incarcerated Hernia, associated SBO S/p emergent surgical repair 06/14/2024 Dressings intact, stable Surgery following Up to chair at least 3 times daily. Anemia Postoperative, downtrending several measurements and uptrending on recheck morning of 06/15. Downtrending again 06/16 although is with some increased volume overload and is net positive suspect some dilution Review of prior iron studies were within normal ferritin however low transferrin saturation. Suspect his ferritin is elevated in context of his multiple illnesses, acute/subacute DVT and he does have underlying iron deficiency Venofer continued. May receive up to 3 total doses. Dose 2/3 ordered 06/17 Hemoglobin stable with initiation of heparin GTT Current DVT/PE Last right lower extremity DVT noted 05/2024 Eliquis held perioperatively. Reversal was not recommended due to high recurrent clot risk Anticoagulation was resumed. Patient was placed on heparin gtt. rather than Eliquis due to concern for bleeding risk and reversibility. Transition to eliquis if H&H remains stable. Precancerous pancreatic mass Patient with recent EUS and biopsy. Pending follow-up to [facility]. Records pending, per family report pancreatic mass is premalignant Patient has a indwelling bare-metal stent and plastic stent in place. No acute change in management of these HFpEF, Hx CAD, Pacer Last EF 55 to 60% echo 09/2023. Euvolemic - Hx CAD PCI 2012, pacer 05/07 CHB 2014. Aspirin 81mg resumed. EKG: Dual paced, no acute ischemic changes. Metoprolol was initially converted to IV every 6 hours while NPObeta-razia withdrawal. Subsequently converted back to p.o. once advanced to clears. Patient acute volume overload with inadequate output to 20 mg IV Lasix, dose was increased to 60 mg and then subsequently 40 mg twice daily with good output. Volume status improved. Cardiology following. Switch back to a.m. oral Lasix. Continue potassium supplementation. Appreciate recommendations Paroxysmal atrial tachycardia/paroxysmal A-fib with ventricular paced rhythm Device interrogated. Likely exacerbated by acute illness. Improved with beta-razia. Anticoagulated as noted. Cardiology following. CKD 4 Baseline creatinine approximately 2.32.5 Creatinine remains at baseline, stable DM2 Oral medications held Mounjaro held BSG greatly improved following steroid administration.? Relative AI as noted below. SSI resume ? Relative adrenal insufficiency Random cortisol 16.7 is within indeterminate range, although would suspect this to be more elevated given significant degree of surgical stress, hypotension, and acute illness. With his persistent borderline hypotension and recurrent hypoglycemia with all antiglycemic's held trialed hydrocortisone with significant improvement. Diet is also been advanced to clears. Will taper hydrocortisone to every 12 hours. Monitor for recurrent hypotension/hypoglycemia. If this recurs then increase steroid course and continue with outpatient follow-up for stim test Hypothyroidism Synthroid resumed DVT prophylaxis: Anticoagulation dissipate to be resumed 06/16 Diet: N.p.o. Disposition: PCU CODE STATUS: Full code. Informed with patient at bedside (2) Small bowel obstruction: (3) Mass of head of pancreas: (4) Chronic kidney disease, stage IV (severe): (5) Acute blood loss anemia: Admission and Anticipated Discharge Date Admission Date: June 14, 2024 Subjective Seen at bedside. Has bene up to chair several times, feels well. +700cc yellow urine in preciado. Denies chest pain, chest pressure, palpitations. Some abdominal pain @ his incision, improving from prior. NO chills/sweats/fever. No lightheadedness Physical Exam Physical Exam: General: A&Ox3. NAD. Cooperative. HEENT: Atraumatic, normocephalic. Vision and hearing are grossly intact. Nasal cannula in place. NGT no longer in place Pulm: Lungs are diminished. +rhonchi and basilar crackles, improve on cough. No increased work of breathing. No respiratory distress. Cardiac: RRR, -mrg. Radial pulses intact and symmetrical. Abdominal: Abdomen appropriately tender around surgical site. No rebound/guarding. Dressing remain sin plac. Shadowing/staining present. Results & Data Results & Data Vital Signs (Past 12 Hours) Vital Signs Temp Pulse Pulse Pulse Resp BP Pulse Ox 06/17/24 07:23 72 06/17/24 07:21 36.5 C 93 H 18 124/70 94 06/17/24 03:31 36.4 C L 78 16 136/69 92 06/16/24 23:22 36.6 C 75 18 147/74 H 93 06/16/24 23:20 83 O2 Del Method O2 Flow Rate 06/17/24 07:23 06/17/24 07:21 Room Air 06/17/24 03:31 Room Air 06/16/24 23:22 Nasal Cannula 1 06/16/24 23:20 PG Care Time/CCT Total # of Minutes Spent Total Time Spent with Patient: Total time spent is greater than 50% in coordination of care (as documented) at patient's floor/unit and/or counseling patient: Coding Level of Care Code 93518 SUB INP/OBS CARE 3/50MIN Diagnoses Incarcerated ventral hernia K43.6 Small bowel obstruction K56.609 Mass of head of pancreas K86.89 Chronic kidney disease, stage IV (severe) N18.4 Acute blood loss anemia D62
[2024-06-17] MEDS: FUROSEMIDE 20 MG TAB PO SCH (11:24)
[2024-06-17] MEDS ORDERED: INSULIN ASPART PER UNIT CHARGE SC SCH (11:30)
[2024-06-17] MEDS: IRON SUCROSE 300 MG in SODIUM CHLORIDE 0.9% 250 ML IV ONE (11:46)
--- NOTE | 2024-06-17 12:53 | Surgery Progress Note ---
Date of Service June 17, 2024 Assessment & Plan (1) Incarcerated hernia: Plan: POD 3 Incarcerated Ventral Hernia Repair, Converted to Open Small Bowel Resection Dr Benson WBC 12 (13), Hbg 8.2. Vitals stable Pt tolerating clears and having + bowel function. will advance to fulls for today On IV hep gtt, if does well with this eventual transition back to [facility]. medicine starting asa today Midline incision with some blood drainage, dressing changed. dominic remains in place Continue IV abx for now Encouraged ambulation and IS. PT/OT ordered Pt seen/examined with Dr. Liu Admission and Anticipated Discharge Date Admission Date: June 14, 2024 Subjective patient feeling okay. tolerating clears. no n/v. reports + gas/BM. has been OOB. Physical Exam Physical Exam: awake, no distress Gastrointestinal (Abdomen): Inspection/Auscultation: + abdominal surgical incision (midline incision w danica and dominic drain, some dried blood on dressing); abdomen not distended Percussion/Palpation: abdomen soft; abdomen nontender Results & Data Vital Signs (Past 12 Hours) Vital Signs Temp Pulse Pulse Pulse Resp BP BP 06/17/24 11:38 98.2 F 62 18 138/68 06/17/24 07:23 72 06/17/24 07:21 97.7 F 93 H 18 124/70 06/17/24 03:31 97.5 F L 78 16 136/69 Pulse Ox O2 Del Method 06/17/24 11:38 95 Room Air 06/17/24 07:23 06/17/24 07:21 94 Room Air 06/17/24 03:31 92 Room Air PG Care Time/CCT Total # of Minutes Spent Total Time Spent with Patient: Total time spent is greater than 50% in coordination of care (as documented) at patient's floor/unit and/or counseling patient: Coding Level of Care Code 67991 Post Operative Follow-Up Diagnoses Incarcerated hernia K46.0
[2024-06-17] MEDS: ASPIRIN 81 MG ECTAB PO SCH (14:34)
[2024-06-17] MEDS: HYDROmorphone INJ 1 MG/ML SYRINGE IV PRN (17:30)
[2024-06-17] MEDS: ATORVASTATIN 40 MG TAB PO SCH (21:19)
[2024-06-17] MEDS: HYDROCORTISONE SOD 50 MG in SYRINGE 0 ML IV SCH (23:52)
[2024-06-18 02:39] LABS: ANTI-Xa, UFH(UnfractionatedHep 0.72 IU/ml (0.3-0.7)
[2024-06-18] MEDS: LEVOTHYROXINE SODIUM 112 MCG TABLET PO SCH (05:37)
[2024-06-18 07:37] LABS: Basophils # (auto) 0.01 K/uL (0.00-0.20); Basophils % (auto) 0.1 %; Hematocrit (blood only) 26.3 % (42.0-52.0); Hemoglobin 8.1 g/dl (14.0-18.0); Immature Granulocytes # (auto) 0.08 K/uL (0.01-0.20); Immature Granulocytes % (auto) 0.8 %; Lymphocytes # (auto) 0.68 K/uL (1.20-3.40); Lymphocytes % (auto) 6.5 %; Mean Corpuscular Hemoglobin 27.7 pg (25.0-34.0); Mean Corpuscular Hgb Conc 30.8 g/dL (32.0-36.0); Mean Corpuscular Volume 90.1 fL (80.0-100.0); Mean Platelet Volume 10.5 fL (9.4-12.4); Monocytes # (auto) 0.37 K/uL (0.11-0.59); Monocytes % (auto) 3.5 %; Neutrophils # (auto) 9.39 K/uL (1.40-6.50); Neutrophils % (auto) 89.1 %; Platelet Count 250 K/uL (130-400); RDW Coefficient of Variation 18.3 % (11.5-14.5); RDW Standard Deviation 60.2 fL (36.4-46.3); Red Blood Count 2.92 M/uL (4.70-6.10); White Blood Count 10.53 K/ul (4.8-10.8)
[2024-06-18 07:44] LABS: BUN Creatinine Ratio 17.9 (10-20); Calcium 8.3 mg/dl (8.6-10.3); Creatinine Clr Calc Pharmacy 33.3 ml/min; Potassium 3.2 mmol/L (3.5-5.1)
[2024-06-18 07:57] LABS: ANTI-Xa, UFH(UnfractionatedHep 0.52 IU/ml (0.3-0.7)
[2024-06-18] MEDS: LANTUS PER UNIT CHARGE SQ ONE ×3 (08:06→21:25)
--- NOTE | 2024-06-18 09:55 | Hospitalist Progress Note ---
Date of Service June 18, 2024 Assessment & Plan (1) Incarcerated ventral hernia: Plan: 79-year-old male with history of recent DVT/PE, recurrent DVT/PE, CKD, HFpEF, DM 2 who presented with an incarcerated hernia requiring emergent surgical intervention. He is high risk due to active anticoagulation with Eliquis, recurrent DVT/PE, underlying CAD/HFpEF although near euvolemic at time of assessment, CKD, and insulin-dependent DM. Patient understands high risk of c omplications but requires emergent surgical intervention for an incarcerated hernia with associated elevated lactate and bowel obstruction. He will proceed emergently to surgical intervention as full code. (2) Small bowel obstruction: Plan: Incarcerated Hernia, associated SBO S/p emergent surgical repair 06/14/2024 Dressings intact, stable Surgery following Up to chair at least 3 times daily. (3) Mass of head of pancreas: Plan: Patient with recent EUS and biopsy. Pending follow-up to [facility]. Records pending, per family report pancreatic mass is premalignant Patient has a indwelling bare-metal stent and plastic stent in place. No acute change in management of these (4) Chronic kidney disease, stage IV (severe): Plan: CKD 4 Baseline creatinine approximately 2.32.5 Creatinine remains at baseline, stable (5) Acute blood loss anemia: Plan: Anemia Postoperative, downtrending several measurements and uptrending on recheck morning of 06/15. Downtrending again 06/16 although is with some increased volume overload and is net positive suspect some dilution Review of prior iron studies were within normal ferritin however low transferrin saturation. Suspect his ferritin is elevated in context of his multiple illnesses, acute/subacute DVT and he does have underlying iron deficiency Venofer continued. May receive up to 3 total doses. Dose 2/3 ordered 06/17 Hemoglobin stable with initiation of heparin GTT - Transition to eliquis 06/19/24 as long as hemoglobin stable. (6) DVT (deep venous thrombosis): Plan: Current DVT/PE Last right lower extremity DVT noted 05/2024 Eliquis held perioperatively. Reversal was not recommended due to high recurrent clot risk Anticoagulation was resumed. Patient was placed on heparin gtt. rather than Eliquis due to concern for bleeding risk and reversibility. -Transition to eliquis if H&H remains stable. (7) CHF (congestive heart failure): Plan: -HFpEF, Hx CAD, Pacer Last EF 55 to 60% echo 09/2023. Euvolemic - Hx CAD PCI 2012, pacer 05/07 CHB 2014. Aspirin 81mg resumed. EKG: Dual paced, no acute ischemic changes. Metoprolol was initially converted to IV every 6 hours while NPObeta-razia withdrawal. Subsequently converted back to p.o. once advanced to clears. Patient acute volume overload with inadequate output to 20 mg IV Lasix, dose was increased to 60 mg and then subsequently 40 mg twice daily with good output. Volume status improved. -Cardiology following. Switch back to a.m. oral Lasix. (8) PAF (paroxysmal atrial fibrillation): Plan: Device interrogated. Likely exacerbated by acute illness. Improved with beta- razia. Anticoagulated as noted. Cardiology following. (9) Diabetes: Plan: Oral medications held Mounjaro held BSG greatly improved following steroid administration.? Relative AI as noted below. SSI resume (10) Diabetes type 2, uncontrolled: (11) Hypothyroidism: Plan: Synthroid resumed Plan PT recommending d/c to SNF rehab upon d/c. Pt will be medically ready once heme stable on anticoagulation. Admission and Anticipated Discharge Date Admission Date: June 14, 2024 Subjective No events overnight. Pt resting comfortably in bed. Review of Systems Review of Systems: CONST: Negative for fever, body aches and chills. HENT: Negative for neck pain/stiffness, headache, congestion, sore throat, swelling. EYES: Negative for discharge/pain or vision changes. RESP: Negative for cough/hemoptysis and shortness of breath. CV: Negative chest pain, difficulty breathing, palpitations. ABD: Negative pain, nausea, vomiting. : Negative increase frequency, dysuria, blood in urine or stool. MUSC: Negative for muscle aches, edema. SKIN: Negative rash, lesions/sores. NEURO: Negative headache, dizziness, weakness. Physical Exam Physical Exam: GENERAL APPEARANCE NAD, activity normal for age, well developed/ well nourished, no cyanosis, pallor, or diaphoresis. EYES lids/conjunctiva normal. EARS/NOSE/THROAT Mucous membranes moist, nares normal, lips/teeth normal uvula midline without oral pharyngeal erythema, exudate or swelling TMs normal bilaterally. No lymphangitis/lymphedema. HEAD/NECK normocephalic atraumatic, no facial trauma, neck is supple. RESPIRATORY respiratory effort normal, speaks in full sentences, no tripod position, no accessory muscle use. Lungs clear to auscultation without rhonchi, wheezes, rales CARDIAC Regular rate and rhythm, no edema. ABDOMINAL Soft, ND/NT. No evidence of fluid wave. Abdominal dress c/d/i MUSCLES/EXTREMITIES No abnormal range of motion, no swelling. SKIN Warm, pink and dry. No rashes, dermatoses, petechiae or lesions. NEUROLOGICAL Speech is clear and appropriate. Normal level of consciousness. Gait and coordination are normal. 5/5 strength in all extremities. PSYCH Normal mood and affect. Judgement/competence is appropriate Results & Data Results & Data Vital Signs (Past 12 Hours) Vital Signs Temp Pulse Pulse Pulse Resp BP BP 06/18/24 07:10 60 06/18/24 07:04 36.6 C 60 17 156/85 H 06/18/24 03:10 36.7 C 60 17 136/64 06/18/24 00:18 67 06/17/24 23:23 36.7 C 60 18 146/63 H Pulse Ox O2 Del Method 06/18/24 07:10 06/18/24 07:04 93 Room Air 06/18/24 03:10 91 Room Air 06/18/24 00:18 06/17/24 23:23 91 Room Air PG Care Time/CCT Total # of Minutes Spent Total Time Spent with Patient: Total time spent is greater than 50% in coordination of care (as documented) at patient's floor/unit and/or counseling patient: Coding Level of Care Code 85721 SUB INP/OBS CARE 2MIN Diagnoses Incarcerated ventral hernia K43.6 Small bowel obstruction K56.609 Mass of head of pancreas K86.89 Chronic kidney disease, stage IV (severe) N18.4 Acute blood loss anemia D62 DVT (deep venous thrombosis) I82.409 CHF (congestive heart failure) I50.9 PAF (paroxysmal atrial fibrillation) I48.0 Diabetes E11.9 Uncontrolled type 2 diabetes mellitus with hypoglycemia without coma E11.649 Glycemic state: with hypoglycemia Coma presence: without coma Hypothyroidism, unspecified type E03.9 Hypothyroidism type: unspecified (10) Diabetes type 2, uncontrolled Glycemic state: with hypoglycemia Coma presence: without coma Qualified Code (s): E11.649 - Type 2 diabetes mellitus with hypoglycemia without coma (11) Hypothyroidism Hypothyroidism type: unspecified Qualified Code(s): E03.9 - Hypothyroidism, unspecified
--- NOTE | 2024-06-18 10:00 | Cardiology Progress Note ---
Date of Service June 18, 2024 Assessment & Plan (1) PAT (paroxysmal atrial tachycardia): (2) Cardiac pacemaker: (3) CHF (congestive heart failure): (4) Hypertension: Plan 79-year-old male with complex history including known conduction system disease status post dual-chamber pacemaker 2014 with recent generator exchange March 2024, chronic diastolic heart failure, CKD , past and recent DVT and pulmonary emboli on chronic anticoagulation. Patient hospitalized with acute bowel obstruction, incarcerated periumbilical hernia undergoing urgent surgery on 06/14/2024. Patient slowly recovering postoperatively but making progress. Telemetry demonstrated atrial sensed and ventricular paced rhythm predominantly with multiple short salvos this afternoon of probable atrial tachycardia with pacemaker pacing at upper limits of its device setting at 120 bpm. No acute hemodynamic findings or cardiac concerns Has been treated for probable component of diastolic heart failure/volume overload receiving 20 mg IV furosemide yesterday 60 mg IV this morning and 40 mg this p.m. Recommendations 1. Paroxysmal atrial tachycardia with ventricular pacing. Device interrogation in progress. Patient now taking p.o. will discontinue IV metoprolol. Begin metoprolol succinate 50 mg twice per day. Evening dose given now. Will treat hypokalemia with 40 meq p.o. potassium now Repeat BMP in a.m. 2. Acute on chronic diastolic heart failure: Will hold IV furosemide after evening dose this evening and reassess in a.m. Metoprolol succinate resumed: Would continue to hold amlodipine, losartan 3. Volume overload/right pleural effusion possible component of atelectasis by review of x-ray. Incentive spirometry ordered patient has responded to IV diuretics. Would repeat chest x-ray in a.m. given difficult examination 4. DVT pulmonary emboli anticoagulation with IV heparin ongoing 06/17/2024 1. Paroxysmal atrial tachycardia/paroxysmal atrial fibrillation with ventricular paced rhythm. Review of device interrogations recent and most past patient with intermittent atrial fibrillation and atrial tachycardia. Current exacerbation is likely brought on by acute illness/hypokalemia/hypoxia Improved after resuming oral beta-razia, potassium supplement Warrants chronic anticoagulation as for multiple reasons. GI/ surgical concerns appear to be improving. Moving bowels no nausea or vomiting taking medications well Recommendations: Continue metoprolol succinate 50 mg twice per day. Resume oral anticoagulation when stable Additional potassium today 20 mEq orally 2. Acute on chronic diastolic heart failure appears to be trending towards euvolemic. Chest x-ray improved. Will discontinue IV furosemide resume oral furosemide 20 mg p.o. daily 3. Complete heart block status post dual-chamber pacemaker insertion: Normal device function 06/18/2024. 1. Paroxysmal atrial tachycardia/atrial fibrillation with pacer therapies baseline ventricular pacing. Pacemaker functioning appropriately Continue anticoagulation Continue current dosing of metoprolol though room to increase if necessary for further arrhythmias. Suspect hypokalemia contributing Additional potassium 4 mill cloven's given today with 10 mill colons twice daily ordered 2. Acute on chronic diastolic heart failure: Furosemide resumed at 20 mg daily 3. Longstanding hypertension with blood pressures now trending elevated. Previously treated with losartan and amlodipine. Would recommend resuming losartan previous dose 50 mg/day consider reduced dose on initial treatment 4. Complete heart block status post dual-chamber pacemaker with pacemaker atrial fibrillation interventions turned on Admission and Anticipated Discharge Date Admission Date: June 14, 2024 Subjective Patient seen and examined, chart, telemetry reviewed. No complaints. Eating and drinking, moving bowels. Abdominal pain improved. No edema. Telemetry demonstrates intermittent runs of atrial fibrillation/atrial tachycardia with pacer therapies, overdrive pacing and conversion to sinus Patient asymptomatic Review of Systems Review of Systems: All systems reviewed & are unremarkable except as noted in Subjective Physical Exam Constitutional: + obese; no acute distress Eyes: PERRL, conjunctivae normal, anicteric sclerae Neck: trachea midline, no thyromegaly Respiratory: normal respiratory effort, lungs clear to auscultation Cardiovascular: Rate/Rhythm: regular rate and regular rhythm (Paced) Heart Sounds: no murmur Vessels: no JVD Extremities: no edema Gastrointestinal (Abdomen): Percussion/Palpation: abdomen soft Results & Data Vital Signs (Past 12 Hours) Vital Signs Temp Pulse Pulse Pulse Resp BP BP 06/18/24 07:10 60 06/18/24 07:04 36.6 C 60 17 156/85 H 06/18/24 03:10 36.7 C 60 17 136/64 06/18/24 00:18 67 06/17/24 23:23 36.7 C 60 18 146/63 H Pulse Ox O2 Del Method 06/18/24 07:10 06/18/24 07:04 93 Room Air 06/18/24 03:10 91 Room Air 06/18/24 00:18 06/17/24 23:23 91 Room Air Laboratory Results Laboratory Results - last 24 hr 06/17/24 06/17/24 06/17/24 09:11 11:48 16:02 WBC RBC Hgb Hct MCV MCH MCHC RDW Std Deviation RDW Coeff of Rito Plt Count MPV Immature Gran % (Auto) Neut % (Auto) Lymph % (Auto) [place] % (Auto) Eos % (Auto) Baso % (Auto) Neut # (Auto) Lymph # (Auto) [place] # (Auto) Eos # (Auto) Baso # (Auto) Immature Gran # (Auto) Heparin Anti-Xa, Unfract 0.62 Sodium Potassium Chloride Carbon Dioxide Anion Gap BUN Creatinine Est Cr Clr Drug Dosing eGFR BUN/Creatinine Ratio Glucose POC Glucose 270 H 252 H Calcium 06/17/24 06/17/24 06/17/24 17:16 20:12 23:47 WBC RBC Hgb Hct MCV MCH MCHC RDW Std Deviation RDW Coeff of Rito Plt Count MPV Immature Gran % (Auto) Neut % (Auto) Lymph % (Auto) [place] % (Auto) Eos % (Auto) Baso % (Auto) Neut # (Auto) Lymph # (Auto) [place] # (Auto) Eos # (Auto) Baso # (Auto) Immature Gran # (Auto) Heparin Anti-Xa, Unfract 0.90 H* Sodium Potassium Chloride Carbon Dioxide Anion Gap BUN Creatinine Est Cr Clr Drug Dosing eGFR BUN/Creatinine Ratio Glucose POC Glucose 204 H 186 H Calcium 06/18/24 06/18/24 06/18/24 01:25 04:20 07:07 WBC 10.53 RBC 2.92 L Hgb 8.1 L Hct 26.3 L MCV 90.1 MCH 27.7 MCHC 30.8 L RDW Std Deviation 60.2 H RDW Coeff of Rito 18.3 H Plt Count 250 MPV 10.5 Immature Gran % (Auto) 0.8 Neut % (Auto) 89.1 Lymph % (Auto) 6.5 [place] % (Auto) 3.5 Eos % (Auto) 0.0 Baso % (Auto) 0.1 Neut # (Auto) 9.39 H Lymph # (Auto) 0.68 L [place] # (Auto) 0.37 Eos # (Auto) 0.00 Baso # (Auto) 0.01 Immature Gran # (Auto) 0.08 Heparin Anti-Xa, Unfract 0.72 H* 0.52 Sodium 142 Potassium 3.2 L Chloride 104 Carbon Dioxide 31 Anion Gap 7 BUN 37 H Creatinine 2.07 H Est Cr Clr Drug Dosing 33.3 eGFR 32.38 BUN/Creatinine Ratio 17.9 Glucose 169 H POC Glucose 156 H Calcium 8.3 L 06/18/24 07:09 WBC RBC Hgb Hct MCV MCH MCHC RDW Std Deviation RDW Coeff of Rito Plt Count MPV Immature Gran % (Auto) Neut % (Auto) Lymph % (Auto) [place] % (Auto) Eos % (Auto) Baso % (Auto) Neut # (Auto) Lymph # (Auto) [place] # (Auto) Eos # (Auto) Baso # (Auto) Immature Gran # (Auto) Heparin Anti-Xa, Unfract Sodium Potassium Chloride Carbon Dioxide Anion Gap BUN Creatinine Est Cr Clr Drug Dosing eGFR BUN/Creatinine Ratio Glucose POC Glucose 176 H Calcium (4) Hypertension Hypertension type: primary hypertension Qualified Code(s): I10 - Essential (primary) hypertension
[2024-06-18] MEDS: POTASSIUM CHLORIDE CRTAB 20 MEQ TABCR PO ONE (11:31)
--- NOTE | 2024-06-18 13:40 | Surgery Progress Note ---
Date of Service June 18, 2024 Assessment & Plan (1) S/P small bowel resection: Plan: POD 4 Incarcerated Ventral Hernia Repair, Converted to Open Small Bowel Resection Dr Benson WBC wnl 10, VSS , afebrile Pt tolerating full liquids, +bms Continue IV abx Encouraged ambulation and IS, PT/OT to continue working with pt while here Pt seen/examined with Dr. Liu Admission and Anticipated Discharge Date Admission Date: June 14, 2024 Subjective pt sitting up in chair, tolerating diet no n/v +bms Physical Exam Constitutional: cooperative and comfortable Respiratory: normal respiratory effort; no respiratory distress Cardiovascular: Rate/Rhythm: regular rate Results & Data Vital Signs (Past 12 Hours) Vital Signs Temp Pulse Pulse Pulse Resp BP BP 06/18/24 11:10 98.4 F 62 18 125/63 06/18/24 07:10 60 06/18/24 07:04 97.9 F 60 17 156/85 H 06/18/24 03:10 98.1 F 60 17 136/64 Pulse Ox O2 Del Method 06/18/24 11:10 95 Room Air 06/18/24 07:10 06/18/24 07:04 93 Room Air 06/18/24 03:10 91 Room Air Results CBC w Diff Results: RBC 2.92 M/uL (4.70-6.10) L 06/18/24 WBC 10.53 K/ul (4.8-10.8) 06/18/24 Hgb 8.1 g/dl (14.0-18.0) L 06/18/24 Hct 26.3 % (42.0-52.0) L 06/18/24 MCV 90.1 fL (80.0-100.0) 06/18/24 MCH 27.7 pg (25.0-34.0) 06/18/24 MCHC 30.8 g/dL (32.0-36.0) L 06/18/24 RDW Standard Deviation 60.2 fL (36.4-46.3) H 06/18/24 RDW Coefficient of Variation 18.3 % (11.5-14.5) H 06/18/24 Plt Count 250 K/uL (130-400) 06/18/24 MPV 10.5 fL (9.4-12.4) 06/18/24 Neutrophils (%) (Auto) 89.1 % 06/18/24 Lymphocytes (%) (Auto) 6.5 % 06/18/24 Monocytes # (Auto) 0.37 K/uL (0.11-0.59) 06/18/24 Eosinophils # (Auto) 0.00 K/uL (0.00-0.50) 06/18/24 Immature Granulocyte % (Auto) 0.8 % 06/18/24 Neutrophils # (Auto) 9.39 K/uL (1.40-6.50) H 06/18/24 Lymphocytes # (Auto) 0.68 K/uL (1.20-3.40) L 06/18/24 Monocytes # (Auto) 0.37 K/uL (0.11-0.59) 06/18/24 Eosinophils # (Auto) 0.00 K/uL (0.00-0.50) 06/18/24 Basophils # (Auto) 0.01 K/uL (0.00-0.20) 06/18/24 Immature Granulocyte # (Auto) 0.08 K/uL (0.01-0.20) 5 Red Blood Cell Morphology Unremarkable 06/15/24 Polychromasia 1+ 06/17/24 PG Care Time/CCT Total # of Minutes Spent Total Time Spent with Patient: Total time spent is greater than 50% in coordination of care (as documented) at patient's floor/unit and/or counseling patient: Coding Level of Care Code 42157 Post Operative Follow-Up Diagnoses S/P small bowel resection Z90.49
--- NOTE | 2024-06-18 15:17 | Pharmacy Report ---
Pharmacy Glycemic Short Note 2 - Date of Service June 18, 2024 - Glycemic Short BSG Results (Last 24 hours): 06/17/24 06/17/24 06/17/24 16:02 20:12 23:47 Glucose POC Glucose 252 H 204 H 186 H 06/18/24 06/18/24 06/18/24 04:20 07:07 07:09 Glucose 169 H POC Glucose 156 H 176 H 06/18/24 11:37 Glucose POC Glucose 219 H OUTPATIENT ANTIDIABETIC REGIMEN: * Tresiba 40 units SQ daily * Admelog SSI * Jardiance 25mg po daily * Mounjaro 5mg SQ weekly HbA1c: 7.4% on 05/10/24 ASSESSMENT: 06/18: * Fasting BSG above goal but significantly improved. Will continue to conservatively titrate basal insulin. * Post prandial hyperglycemia persists. Diet advenced to full liquids. Will tighten carbohydrate coverage. 06/17: Pharmacy re-consulted, BSG > 200 mg/dL x 2. * Patient ordered hydrocortisone 50 mg IV q6h, reduced to q12h dosing on 06/17 PM. * Basal insulin re-introduced at conservative doses d/t previous hypoglycemia. 06/16: Pharmacy signed off glycemic consult 06/15: * 79 year old male presented to ED 06/14 with concern for vomiting over several days. Patient was found to have incarcerated periumbilical hernia with supplemental omental/small bowel incarceration. Patient sent for emergent surgery last evening and pharmacy was consulted for glycemic management postop as patient had persistent hypoglycemia. (POD #1) Unclear when/how much insulin was given prior to admit. * Initial BSG yesterday afternoon was 57mg/dL. Patient received 25ml D50% x 2 and BSG pat to 101mg/dL at 2308. BSG dropped again and by 0229 was 64mg/dL. Another 25ml of d50% was given and subsequent BSG was 93mg/dL. * BSG this morning at 0713 was still only 87mg/dL. * Patient is currently still NPO and has D5LR running at 125ml/hr. No basal in sulin is running currently and a very loose bolus insulin regimen is ordered incase his BSG would start to rise. PLAN FOR INPATIENT GLYCEMIC CONTROL: * Hold outpatient diabetes medications * Basal insulin * Lantus 5 units SC this morning + 5 units SC with lunch * Will order an additional 0-5 units to be given this evening (5 units for BSG >180 mg/dL) * Bolus insulin * NovoLog per scale ACHS or Q6hrs while NPO * Goal Range: Low 110 mg/dL - High 160 mg/dL * Correction Factor: 25 mg/dL/unit * Nutritional / Prandial insulin per carb ratio of 1 unit per 8 grams CHO consumed
[2024-06-18] MEDS: FUROSEMIDE 20 MG TAB PO SCH (17:01)
[2024-06-18] MEDS: POTASSIUM CHLORIDE 10 MEQ TABCR PO SCH (21:26)
[2024-06-19 07:31] LABS: Basophils # (auto) 0.01 K/uL (0.00-0.20); Basophils % (auto) 0.1 %; Hematocrit (blood only) 27.5 % (42.0-52.0); Hemoglobin 8.7 g/dl (14.0-18.0); Immature Granulocytes # (auto) 0.11 K/uL (0.01-0.20); Immature Granulocytes % (auto) 1.3 %; Lymphocytes # (auto) 0.75 K/uL (1.20-3.40); Mean Corpuscular Hemoglobin 28.2 pg (25.0-34.0); Mean Corpuscular Hgb Conc 31.6 g/dL (32.0-36.0); Mean Corpuscular Volume 89.3 fL (80.0-100.0); Mean Platelet Volume 10.6 fL (9.4-12.4); Monocytes # (auto) 0.42 K/uL (0.11-0.59); Monocytes % (auto) 5.1 %; Neutrophils # (auto) 7.02 K/uL (1.40-6.50); Neutrophils % (auto) 84.5 %; Platelet Count 247 K/uL (130-400); RDW Coefficient of Variation 18.1 % (11.5-14.5); RDW Standard Deviation 59.7 fL (36.4-46.3); Red Blood Count 3.08 M/uL (4.70-6.10); White Blood Count 8.31 K/ul (4.8-10.8)
[2024-06-19 07:40] LABS: ANTI-Xa, UFH(UnfractionatedHep 0.32 IU/ml (0.3-0.7)
[2024-06-19 08:08] LABS: BUN Creatinine Ratio 17.9 (10-20); Calcium 8.5 mg/dl (8.6-10.3); Creatinine Clr Calc Pharmacy 35.7 ml/min; Potassium 3.4 mmol/L (3.5-5.1)
[2024-06-19] MEDS: LANTUS PER UNIT CHARGE SC SCH (08:20)
--- NOTE | 2024-06-19 08:55 | Surgery Progress Note ---
Date of Service June 19, 2024 Assessment & Plan (1) S/P small bowel resection: Plan: Patient is POD #5 s/p incarcerated Ventral Hernia Repair, Converted to Open Small Bowel Resection Dr Benson WBC wnl, VSS , afebrile. Patient has been on IV antibiotics, will discontinue today Pt tolerating full liquids and continues to have BMs. If patient continues to tolerate this morning, may advance diet as tolerated to Low Fiber. Incisions are c/d/i with danica in place. Bristol drain removed at bedside this morning. Daily dressing changes. Encouraged ambulation and IS and PT/OT Continue medical management per primary team, Meme sanchez over the week. Admission and Anticipated Discharge Date Admission Date: June 14, 2024 Subjective Patient doing well this morning. Denies N/V and tolerating full liquids without any issues. States he is still having BMs Afebrile and WBC wnl Denies CP, SOB, fevers or chills. Physical Exam Constitutional: WD/WN, vitals as above Respiratory: normal respiratory effort, lungs clear to auscultation Cardiovascular: Rate/Rhythm: regular rate Gastrointestinal (Abdomen): Abdomen soft, nondistended, appropriate TPP over surgical sites. Surgical incisions with danica in place, Bristol removed from midline incision and gauze dressing placed. Skin: no rashes, warm and dry Results & Data Vital Signs (Past 12 Hours) Vital Signs Temp Pulse Pulse Resp BP BP Pulse Ox 06/19/24 07:33 36.5 C 63 17 170/76 H 91 06/19/24 04:23 36.6 C 64 18 173/84 H 92 06/19/24 01:47 60 06/18/24 22:56 36.5 C 61 18 154/78 H 95 O2 Del Method 06/19/24 07:33 Room Air 06/19/24 04:23 Room Air 06/19/24 01:47 06/18/24 22:56 Room Air PG Care Time/CCT Total # of Minutes Spent Total Time Spent with Patient: Total time spent is greater than 50% in coordination of care (as documented) at patient's floor/unit and/or counseling patient: Coding Level of Care Code 50406 Post Operative Follow-Up Diagnoses S/P small bowel resection Z90.49
--- NOTE | 2024-06-19 09:10 | Hospitalist Progress Note ---
Date of Service June 19, 2024 Assessment & Plan (1) Incarcerated ventral hernia: Plan: 79-year-old male with history of recent DVT/PE, recurrent DVT/PE, CKD, HFpEF, DM 2 who presented with an incarcerated hernia requiring emergent surgical intervention. He is high risk due to active anticoagulation with Eliquis, recurrent DVT/PE, underlying CAD/HFpEF although near euvolemic at time of assessment, CKD, and insulin-dependent DM. Patient understands high risk of c omplications but requires emergent surgical intervention for an incarcerated hernia with associated elevated lactate and bowel obstruction. He did proceed emergently to surgical intervention (2) Small bowel obstruction: Plan: Incarcerated Hernia, associated SBO S/p emergent surgical repair 06/14/2024 Dressings intact, stable Surgery following, advancing diet Up to chair at least 3 times daily. (3) Mass of head of pancreas: Plan: Patient with recent EUS and biopsy. Pending follow-up to [facility]. Records pending, per family report pancreatic mass is premalignant Patient has a indwelling bare-metal stent and plastic stent in place. No acute change in management of these (4) Chronic kidney disease, stage IV (severe): Plan: CKD 4 Baseline creatinine approximately 2.32.5 Creatinine remains at baseline, stable (5) Acute blood loss anemia: Plan: Anemia Postoperative, downtrending several measurements and uptrending on recheck morning of 06/15. Downtrending again 06/16 although is with some increased volume overload and is net positive suspect some dilution Review of prior iron studies were within normal ferritin however low transferrin saturation. Suspect his ferritin is elevated in context of his multiple illnesses, acute/subacute DVT and he does have underlying iron defici ency Venofer ordered 06/17 Hemoglobin stable - Transition to eliquis 06/19/24 as hemoglobin stable. (6) DVT (deep venous thrombosis): Plan: Current DVT/PE Last right lower extremity DVT noted 05/2024 Eliquis held perioperatively. Reversal was not recommended due to high recurrent clot risk Anticoagulation was resumed. (7) CHF (congestive heart failure): Plan: -HFpEF, Hx CAD, Pacer Last EF 55 to 60% echo 09/2023. Euvolemic - Hx CAD PCI 2012, pacer 05/07 CHB 2014. Aspirin 81mg resumed. EKG: Dual paced, no acute ischemic changes. Metoprolol back to p.o. Patient acute volume overload with inadequate output to 20 mg IV Lasix, dose was increased to 60 mg and then subsequently 40 mg twice daily with good output. Volume status improved. -Cardiology following. Switch back to a.m. oral Lasix. (8) PAF (paroxysmal atrial fibrillation): Plan: Device interrogated. Likely exacerbated by acute illness. Improved with beta- razia. Anticoagulated as noted. Cardiology following. (9) Diabetes: Plan: Oral medications held Mounjaro held BSG greatly improved following steroid administration.? Relative AI as noted below. SSI resume (10) Diabetes type 2, uncontrolled: (11) Hypothyroidism: Plan: Synthroid resumed Plan PT recommending d/c to SNF rehab upon d/c. Pt will be medically ready once heme stable on anticoagulation. Admission and Anticipated Discharge Date Admission Date: June 14, 2024 Results & Data Results & Data Vital Signs (Past 12 Hours) Vital Signs Temp Pulse Pulse Resp BP BP Pulse Ox 06/19/24 07:33 97.7 F 63 17 170/76 H 91 06/19/24 04:23 97.9 F 64 18 173/84 H 92 06/19/24 01:47 60 06/18/24 22:56 97.7 F 61 18 154/78 H 95 O2 Del Method 06/19/24 07:33 Room Air 06/19/24 04:23 Room Air 06/19/24 01:47 06/18/24 22:56 Room Air Laboratory Results reviewed cbc, hgb stable reviewed chemistry, mildly low potassium PG Care Time/CCT Total # of Minutes Spent Total Time Spent with Patient: Total time spent is greater than 50% in coordination of care (as documented) at patient's floor/unit and/or counseling patient: Coding Level of Care Code 88177 SUB INP/OBS CARE 3/50MIN Diagnoses Incarcerated ventral hernia K43.6 Small bowel obstruction K56.609 Mass of head of pancreas K86.89 Chronic kidney disease, stage IV (severe) N18.4 Acute blood loss anemia D62 DVT (deep venous thrombosis) I82.409 CHF (congestive heart failure) I50.9 PAF (paroxysmal atrial fibrillation) I48.0 Diabetes E11.9 Uncontrolled type 2 diabetes mellitus with hypoglycemia without coma E11.649 Coma presence: without coma Glycemic state: with hypoglycemia Hypothyroidism, unspecified type E03.9 Hypothyroidism type: unspecified (10) Diabetes type 2, uncontrolled Coma presence: without coma Glycemic state: with hypoglycemia Qualified Code(s): E11.649 - Type 2 diabetes mellitus with hypoglycemia without coma (11) Hypothyroidism Hypothyroidism type: unspecified Qualified Code(s): E03.9 - Hypothyroidism, unspecified
--- NOTE | 2024-06-19 09:19 | Pharmacy Report ---
Pharmacy Glycemic Short Note 2 - Date of Service June 19, 2024 - Glycemic Short BSG Results (Last 24 hours): 06/18/24 06/18/24 06/18/24 11:37 16:15 20:24 Glucose POC Glucose 219 H 177 H 203 H 06/19/24 06/19/24 07:04 07:24 Glucose 166 H POC Glucose 169 H OUTPATIENT ANTIDIABETIC REGIMEN: * Tresiba 40 units SC daily * Admelog SSI * Jardiance 25 mg PO daily * Mounjaro 5mg SC every Wednesday HbA1c: 7.4% on 05/10/24 ASSESSMENT: 06/19: * Received 42 units of insulin yesterday, 15 of which were basal. BSGs were [phone] mg/dL. * Fasting BSG this AM was 169 mg/dL. Will increase basal by 5 units this AM. * Diet being advanced by surgery, tolerating better. Abx discontinued. Remains on heparin drip. * Will tighten both correction and carb ratio this AM given postprandial hyperglycemia yesterday. Also tightened upper end of goal range. 06/18: * Fasting BSG above goal but significantly improved. Will continue to conservatively titrate basal insulin. * Post prandial hyperglycemia persists. Diet advenced to full liquids. Will tighten carbohydrate coverage. 06/17: Pharmacy re-consulted, BSG > 200 mg/dL x 2. * Patient ordered hydrocortisone 50 mg IV q6h, reduced to q12h dosing on 06/17 PM. * Basal insulin re-introduced at conservative doses d/t previous hypoglycemia. 06/16: Pharmacy signed off glycemic consult 06/15: * 79 year old male presented to ED 06/14 with concern for vomiting over several days. Patient was found to have incarcerated periumbilical hernia with supplemental omental/small bowel incarceration. Patient sent for emergent surgery last evening and pharmacy was consulted for glycemic management postop as patient had persistent hypoglycemia. (POD #1) Unclear when/how much insulin was given prior to admit. * Initial BSG yesterday afternoon was 57mg/dL. Patient received 25ml D50% x 2 and BSG pat to 101mg/dL at 2308. BSG dropped again and by 0229 was 64mg/dL. Another 25ml of d50% was given and subsequent BSG was 93mg/dL. * BSG this morning at 0713 was still only 87mg/dL. * Patient is currently still NPO and has D5LR running at 125ml/hr. No basal insulin is running currently and a very loose bolus insulin regimen is ordered incase his BSG would start to rise. PLAN FOR INPATIENT GLYCEMIC CONTROL: * Hold outpatient diabetes medications * Basal insulin * Lantus 20 units SC daily * Bolus insulin * NovoLog per scale ACHS or Q6hrs while NPO * Goal Range: Low 110 mg/dL - High 140 mg/dL * Correction Factor: 20 mg/dL/unit * Nutritional / Prandial insulin per carb ratio of 1 unit per 7 grams CHO consumed
[2024-06-19] MEDS ORDERED: POTASSIUM CHLORIDE CRTAB 20 MEQ TABCR PO ONE (09:21)
--- NOTE | 2024-06-19 12:18 | Cardiology Progress Note ---
Date of Service June 19, 2024 Assessment & Plan (1) PAT (paroxysmal atrial tachycardia): (2) Cardiac pacemaker: (3) CHF (congestive heart failure): (4) Hypertension: Plan 79-year-old male with complex history including known conduction system disease status post dual-chamber pacemaker 2014 with recent generator exchange March 2024, chronic diastolic heart failure, CKD , past and recent DVT and pulmonary emboli on chronic anticoagulation. Patient hospitalized with acute bowel obstruction, incarcerated periumbilical hernia undergoing urgent surgery on 06/14/2024. Patient slowly recovering postoperatively but making progress. Telemetry demonstrated atrial sensed and ventricular paced rhythm predominantly with multiple short salvos this afternoon of probable atrial tachycardia with pacemaker pacing at upper limits of its device setting at 120 bpm. No acute hemodynamic findings or cardiac concerns Has been treated for probable component of diastolic heart failure/volume overload receiving 20 mg IV furosemide yesterday 60 mg IV this morning and 40 mg this p.m. Recommendations 1. Paroxysmal atrial tachycardia with ventricular pacing. Device interrogation in progress. Patient now taking p.o. will discontinue IV metoprolol. Begin metoprolol succinate 50 mg twice per day. Evening dose given now. Will treat hypokalemia with 40 meq p.o. potassium now Repeat BMP in a.m. 2. Acute on chronic diastolic heart failure: Will hold IV furosemide after evening dose this evening and reassess in a.m. Metoprolol succinate resumed: Would continue to hold amlodipine, losartan 3. Volume overload/right pleural effusion possible component of atelectasis by review of x-ray. Incentive spirometry ordered patient has responded to IV diuretics. Would repeat chest x-ray in a.m. given difficult examination 4. DVT pulmonary emboli anticoagulation with IV heparin ongoing 06/17/2024 1. Paroxysmal atrial tachycardia/paroxysmal atrial fibrillation with ventricular paced rhythm. Review of device interrogations recent and most past patient with intermittent atrial fibrillation and atrial tachycardia. Current exacerbation is likely brought on by acute illness/hypokalemia/hypoxia Improved after resuming oral beta-razia, potassium supplement Warrants chronic anticoagulation as for multiple reasons. GI/ surgical concerns appear to be improving. Moving bowels no nausea or vomiting taking medications well Recommendations: Continue metoprolol succinate 50 mg twice per day. Resume oral anticoagulation when stable Additional potassium today 20 mEq orally 2. Acute on chronic diastolic heart failure appears to be trending towards euvolemic. Chest x-ray improved. Will discontinue IV furosemide resume oral furosemide 20 mg p.o. daily 3. Complete heart block status post dual-chamber pacemaker insertion: Normal device function 06/18/2024. 1. Paroxysmal atrial tachycardia/atrial fibrillation with pacer therapies baseline ventricular pacing. Pacemaker functioning appropriately Continue anticoagulation Continue current dosing of metoprolol though room to increase if necessary for further arrhythmias. Suspect hypokalemia contributing Additional potassium 4 mill cloven's given today with 10 mill colons twice daily ordered 2. Acute on chronic diastolic heart failure: Furosemide resumed at 20 mg daily 3. Longstanding hypertension with blood pressures now trending elevated. Previously treated with losartan and amlodipine. Would recommend resuming losartan previous dose 50 mg/day consider reduced dose on initial treatment 4. Complete heart block status post dual-chamber pacemaker with pacemaker atrial fibrillation interventions turned on 06/19/24 1. PAT/PAF - Only several short bursts of atrial tach vs atrial fib on monitor overnight or this morning, lasting about 10 seconds each. Increase metoprolol to 75 mg BID for arrhythmias and HTN supplement potassium with additional 40 meq this morning. Continue regular dosing of potassium 10 meq BID. Pacemaker functioning appropriately 2. Chronic HFpEF - Oral Furosemide resumed. Appears euvolemic 3. HTN - BP trending higher. -increase metoprolol to 75 mg BID -Losartan on hold this admission. Creatinine improving. Consider resuming lower dose. -Resume amlodipine if needed as well. Case discussed with Dr. Bell I spent a total of 30 minutes on the date of service in preparation, delivery, and documentation of the care provided to this patient, excluding any time spent in the performance of separately billed services. Greer Armando PA-C Department of Cardiology, [facility] This chart was completed in part utilizing Speech Voice Recognition Software. Gr ammatical errors, random word insertions, pronoun errors, and incomplete sentences are an occasional consequence of this system due to software limitations, ambient noise, and hardware issues. Any formal questions or concerns about the content, text, or information contained within the body of this dictation should be directly addressed to the provider for clarification. Admission and Anticipated Discharge Date Admission Date: June 14, 2024 Supervising Physician Co-Signing Physician Notes I have personally performed a history and physical examination on the patient. I have reviewed the advance practitioner's documentation, and I agree with, and take responsibility for the plan of care. 79-year-old male seen examined at the bedside. Poor historian. Atrial sensed ventricular paced rhythm on telemetry with short bursts of rapid ventricular pacing, possible atrail tach vs. ATP noted. Pacemaker interrogation performed earlier during hospitalization demonstrating normal pacer function. Patient asymptomatic. Denies chest pain or shortness of breath. Volume status improved since admission. Appears euvolemic currently. Agree with titration of beta- razia therapy. Continue oral diuretic therapy. Supplement potassium as indicated. Repeat serum magnesium level today. I spent a total of 25 minutes on the date of service in preparation, delivery, and documentation of the care provided to this patient, excluding any time spent in the performance of separately billed services. Brayden Bell DO, [facility] Subjective Patient resting in chair at time of evaluation. Reports feeling "good". No current abdominal pain. No SOB. No chest pain. No dizziness. No edema. Review of Systems Review of Systems: All systems reviewed & are unremarkable except as noted in HPI & below Physical Exam Constitutional: + obese; no acute distress Eyes: PERRL, conjunctivae normal, anicteric sclerae Neck: trachea midline, no thyromegaly Respiratory: normal respiratory effort, lungs clear to auscultation Cardiovascular: Rate/Rhythm: regular rate and regular rhythm (Paced) Heart Sounds: no murmur Vessels: no JVD Extremities: no edema Gastrointestinal (Abdomen): Percussion/Palpation: abdomen soft Results & Data Vital Signs (Past 12 Hours) Vital Signs Temp Pulse Pulse Resp BP BP Pulse Ox 06/19/24 11:00 36.7 C 59 L 18 154/71 H 95 06/19/24 07:33 36.5 C 63 17 170/76 H 91 06/19/24 04:23 36.6 C 64 18 173/84 H 92 06/19/24 01:47 60 O2 Del Method 06/19/24 11:00 Room Air 06/19/24 07:33 Room Air 06/19/24 04:23 Room Air 06/19/24 01:47 Laboratory Results CBC 06/19/24 Range/Units 07:04 WBC 8.31 (4.8-10.8) K/ul RBC 3.08 L (4.70-6.10) M/uL Hgb 8.7 L (14.0-18.0) g/dl Hct 27.5 L (42.0-52.0) % Plt Count 247 (130-400) K/uL Neut # (Auto) 7.02 H (1.40-6.50) K/uL Lymph # (Auto) 0.75 L (1.20-3.40) K/uL [place] # (Auto) 0.42 (0.11-0.59) K/uL Eos # (Auto) 0.00 (0.00-0.50) K/uL Baso # (Auto) 0.01 (0.00-0.20) K/uL Comprehensive Metabolic Panel 06/19/24 Range/Units 07:04 Sodium 144 (136-145) mmol/L Potassium 3.4 L (3.5-5.1) mmol/L Chloride 104 (98-107) mmol/L Carbon Dioxide 33 H (21-32) mmol/L BUN 34 H (6-23) mg/dl Creatinine 1.90 H (0.6-1.4) mg/dl Glucose 166 H (70-99(Fasting)) mg/dl Calcium 8.5 L (8.6-10.3) mg/dl Intake and Output 06/18/24 06/19/24 06/19/24 22:59 06:59 14:59 Intake Total 200 / 880 100 / 880 431.717 / 431.717 Output Total 150 / 700 150 / 700 Balance 50 / 180 -50 / 180 431.717 / 431.717 Intake: IV 100 / 300 100 / 300 431.717 / 431.717 Heparin 87375 Unit/500 ml D5w 331.717 / 331.717 25,000 units In 500 ml @ 650 UNITS/HR 13 mls/hr IV .Q24H [facility] Rx#:[id number] Piperacillin/Tazobactam 4.5 gm 100 / 300 100 / 300 100 / 100 In 100 ml @ 25 mls/hr IV Q8H [facility] Rx#:[id number] Oral 100 / 580 Output: Urine 150 / 300 150 / 300 Other: Weight 101.3 kg Weight Measurement Method Built in [facility] Diagnostic Findings Telemetry reviewed: AV paced with several short bouts of non sustained atrial tach vs atrial flutter with ventricular pacing. Medications Administered CBC 06/19/24 Range/Units 07:04 WBC 8.31 (4.8-10.8) K/ul RBC 3.08 L (4.70-6.10) M/uL Hgb 8.7 L (14.0-18.0) g/dl Hct 27.5 L (42.0-52.0) % Plt Count 247 (130-400) K/uL Neut # (Auto) 7.02 H (1.40-6.50) K/uL Lymph # (Auto) 0.75 L (1.20-3.40) K/uL [place] # (Auto) 0.42 (0.11-0.59) K/uL Eos # (Auto) 0.00 (0.00-0.50) K/uL Baso # (Auto) 0.01 (0.00-0.20) K/uL Comprehensive Metabolic Panel 06/19/24 Range/Units 07:04 Sodium 144 (136-145) mmol/L Potassium 3.4 L (3.5-5.1) mmol/L Chloride 104 (98-107) mmol/L Carbon Dioxide 33 H (21-32) mmol/L BUN 34 H (6-23) mg/dl Creatinine 1.90 H (0.6-1.4) mg/dl Glucose 166 H (70-99(Fasting)) mg/dl Calcium 8.5 L (8.6-10.3) mg/dl Intake and Output 06/18/24 06/19/24 06/19/24 22:59 06:59 14:59 Intake Total 200 / 880 100 / 880 431.717 / 431.717 Output Total 150 / 700 150 / 700 Balance 50 / 180 -50 / 180 431.717 / 431.717 Intake: IV 100 / 300 100 / 300 431.717 / 431.717 Heparin 88723 Unit/500 ml D5w 331.717 / 331.717 25,000 units In 500 ml @ 650 UNITS/HR 13 mls/hr IV .Q24H [facility] Rx#:[id number] Piperacillin/Tazobactam 4.5 gm 100 / 300 100 / 300 100 / 100 In 100 ml @ 25 mls/hr IV Q8H [facility] Rx#:[id number] Oral 100 / 580 Output: Urine 150 / 300 150 / 300 Other: Weight 101.3 kg Weight Measurement Method Built in [facility] (4) Hypertension Hypertension type: primary hypertension Qualified Code(s): I10 - Essential (primary) hypertension
[2024-06-19] MEDS ORDERED: HYDROmorphone INJ 0.5 MG/0.5 ML SYR IV PRN (12:30)
[2024-06-19] MEDS: POTASSIUM CHLORIDE CRTAB 20 MEQ TABCR PO SCH (12:57)
[2024-06-19] MEDS: METOPROLOL SUCC 25MG EXT REL TAB PO ONE (12:57)
[2024-06-19 15:02] LABS: Magnesium 1.8 mg/dl (1.7-2.4)
[2024-06-19] MEDS: POTASSIUM CHLORIDE 20 MEQ/15 ML UDC PO STA (17:39)
[2024-06-19] MEDS: METOPROLOL SUCC 25MG EXT REL TAB PO SCH (21:31)
[2024-06-19] MEDS: APIXABAN 5 MG TABLET PO SCH (21:32)
[2024-06-20 07:43] LABS: Basophils # (auto) 0.01 K/uL (0.00-0.20); Basophils % (auto) 0.1 %; Hematocrit (blood only) 24.5 % (42.0-52.0); Hemoglobin 7.7 g/dl (14.0-18.0); Immature Granulocytes # (auto) 0.18 K/uL (0.01-0.20); Immature Granulocytes % (auto) 1.7 %; Lymphocytes # (auto) 0.73 K/uL (1.20-3.40); Lymphocytes % (auto) 7.1 %; Mean Corpuscular Hemoglobin 27.8 pg (25.0-34.0); Mean Corpuscular Hgb Conc 31.4 g/dL (32.0-36.0); Mean Corpuscular Volume 88.4 fL (80.0-100.0); Mean Platelet Volume 10.6 fL (9.4-12.4); Monocytes # (auto) 0.62 K/uL (0.11-0.59); Neutrophils # (auto) 8.79 K/uL (1.40-6.50); Neutrophils % (auto) 85.1 %; Platelet Count 220 K/uL (130-400); RDW Standard Deviation 58.4 fL (36.4-46.3); Red Blood Count 2.77 M/uL (4.70-6.10); White Blood Count 10.33 K/ul (4.8-10.8)
[2024-06-20 07:56] LABS: BUN Creatinine Ratio 18.1 (10-20); Creatinine Clr Calc Pharmacy 42.3 ml/min; Potassium 3.1 mmol/L (3.5-5.1)
[2024-06-20 08:20] LABS: Polychromasia 1+
[2024-06-20] MEDS: LANTUS PER UNIT CHARGE SC SCH ×2 (08:30→20:31)
--- NOTE | 2024-06-20 09:09 | Surgery Progress Note ---
Date of Service June 20, 2024 Assessment & Plan (1) S/P small bowel resection: Plan: Patient is POD #6 s/p incarcerated Ventral Hernia Repair, Converted to Open Small Bowel Resection Dr Benson WBC wnl, VSS , afebrile. advance diet as tolerated to Low Fiber. Incisions are c/d/i with danica in place. Daily dressing changes. Encouraged ambulation and IS and PT/OT Continue medical management per primary team Admission and Anticipated Discharge Date Admission Date: June 14, 2024 Subjective he seems to be doing well. Tolerating diet. Had bowel movement overnight. No fevers or chills. Physical Exam Gastrointestinal (Abdomen): Inspection/Auscultation: + abdominal surgical incision (midline incision w danica and dominic drain, some dried blood on dressing); abdomen not distended Percussion/Palpation: abdomen soft; abdomen nontender Skin: no rashes, warm and dry Psychiatric: Orientation: alert and cooperative Results & Data Vital Signs (Past 12 Hours) Vital Signs Temp Pulse Pulse Pulse Resp BP Pulse Ox 06/20/24 07:14 36.4 C L 61 18 176/80 H 95 06/20/24 02:37 36.8 C 67 18 155/70 H 96 06/19/24 23:17 120 H 06/19/24 22:38 36.5 C 61 18 166/71 H 96 O2 Del Method 06/20/24 07:14 Room Air 06/20/24 02:37 Room Air 06/19/24 23:17 06/19/24 22:38 Room Air
[2024-06-20] MEDS: POTASSIUM CHLORIDE CRTAB 20 MEQ TABCR PO ONE (09:21)
[2024-06-20] MEDS: MAGNESIUM SULFATE / D5W 1 GM/100 ML BAG IV SCH (09:23)
--- NOTE | 2024-06-20 12:09 | Cardiology Progress Note ---
Date of Service June 20, 2024 Assessment & Plan (1) PAT (paroxysmal atrial tachycardia): (2) Cardiac pacemaker: (3) CHF (congestive heart failure): (4) Hypertension: Plan 79-year-old male with complex history including known conduction system disease status post dual-chamber pacemaker 2014 with recent generator exchange March 2024, chronic diastolic heart failure, CKD , past and recent DVT and pulmonary emboli on chronic anticoagulation. Patient hospitalized with acute bowel obstruction, incarcerated periumbilical hernia undergoing urgent surgery on 06/14/2024. Patient slowly recovering postoperatively but making progress. Telemetry demonstrated atrial sensed and ventricular paced rhythm predominantly with multiple short salvos this afternoon of probable atrial tachycardia with pacemaker pacing at upper limits of its device setting at 120 bpm. No acute hemodynamic findings or cardiac concerns Has been treated for probable component of diastolic heart failure/volume overload receiving 20 mg IV furosemide yesterday 60 mg IV this morning and 40 mg this p.m. Recommendations 1. Paroxysmal atrial tachycardia with ventricular pacing. Device interrogation in progress. Patient now taking p.o. will discontinue IV metoprolol. Begin metoprolol succinate 50 mg twice per day. Evening dose given now. Will treat hypokalemia with 40 meq p.o. potassium now Repeat BMP in a.m. 2. Acute on chronic diastolic heart failure: Will hold IV furosemide after evening dose this evening and reassess in a.m. Metoprolol succinate resumed: Would continue to hold amlodipine, losartan 3. Volume overload/right pleural effusion possible component of atelectasis by review of x-ray. Incentive spirometry ordered patient has responded to IV diuretics. Would repeat chest x-ray in a.m. given difficult examination 4. DVT pulmonary emboli anticoagulation with IV heparin ongoing 06/17/2024 1. Paroxysmal atrial tachycardia/paroxysmal atrial fibrillation with ventricular paced rhythm. Review of device interrogations recent and most past patient with intermittent atrial fibrillation and atrial tachycardia. Current exacerbation is likely brought on by acute illness/hypokalemia/hypoxia Improved after resuming oral beta-razia, potassium supplement Warrants chronic anticoagulation as for multiple reasons. GI/ surgical concerns appear to be improving. Moving bowels no nausea or vomiting taking medications well Recommendations: Continue metoprolol succinate 50 mg twice per day. Resume oral anticoagulation when stable Additional potassium today 20 mEq orally 2. Acute on chronic diastolic heart failure appears to be trending towards euvolemic. Chest x-ray improved. Will discontinue IV furosemide resume oral furosemide 20 mg p.o. daily 3. Complete heart block status post dual-chamber pacemaker insertion: Normal device function 06/18/2024. 1. Paroxysmal atrial tachycardia/atrial fibrillation with pacer therapies baseline ventricular pacing. Pacemaker functioning appropriately Continue anticoagulation Continue current dosing of metoprolol though room to increase if necessary for further arrhythmias. Suspect hypokalemia contributing Additional potassium 4 mill cloven's given today with 10 mill colons twice daily ordered 2. Acute on chronic diastolic heart failure: Furosemide resumed at 20 mg daily 3. Longstanding hypertension with blood pressures now trending elevated. Previously treated with losartan and amlodipine. Would recommend resuming losartan previous dose 50 mg/day consider reduced dose on initial treatment 4. Complete heart block status post dual-chamber pacemaker with pacemaker atrial fibrillation interventions turned on 06/19/24 1. PAT/PAF - Only several short bursts of atrial tach vs atrial fib on monitor overnight or this morning, lasting about 10 seconds each. Increase metoprolol to 75 mg BID for arrhythmias and HTN supplement potassium with additional 40 meq this morning. Continue regular dosing of potassium 10 meq BID. Pacemaker functioning appropriately 2. Chronic HFpEF - Oral Furosemide resumed. Appears euvolemic 3. HTN - BP trending higher. -increase metoprolol to 75 mg BID -Losartan on hold this admission. Creatinine improving. Consider resuming lower dose. -Resume amlodipine if needed as well. 06/20/24: 1. PAT/PAF - Several short episodes overnight on telemetry, lasting 15-30 seconds. No sustained arrhythmias -increase metoprolol to 100 mg BID for HR and BP support -supplement magnesium and potassium this morning -Continue Eliquis for now, but if he has recurrent GI bleeding or hbg drops further, may need to hold? 2. HFpEF -continue furosemide 3. HTN -BP remains uncontrolled -increase metoprolol to 100 mg BID for HR/BP -resume amlodipine 2.5 mg daily (prior home dose was 5 mg) -losartan remains on hold due to JUANPABLO - creatinine improving Case discussed with Dr. Bell I spent a total of 30 minutes on the date of service in preparation, delivery, and documentation of the care provided to this patient, excluding any time spent in the performance of separately billed services. Greer Armando PA-C Department of Cardiology, [facility] This chart was completed in part utilizing Speech Voice Recognition Software. Grammatical errors, random word insertions, pronoun errors, and incomplete sentences are an occasional consequence of this system due to software limitations, ambient noise, and hardware issues. Any formal questions or concerns about the content, text, or information contained within the body of this dictation should be directly addressed to the provider for clarification. Admission and Anticipated Discharge Date Admission Date: June 14, 2024 Supervising Physician Co-Signing Physician Notes I have personally performed a history and physical examination on the patient. I have reviewed the advance practitioner's documentation, and I agree with, and take responsibility for the plan of care. 79-year-old male seen examined at the bedside. Poor historian. Denies chest pain or shortness of breath. Atrial sensed ventricular paced rhythm on telemetry with short bursts of rapid ventricular pacing, possible atrial tach vs. ATP noted. Pacemaker interrogation performed earlier during hospitalization demonstrating normal pacer function. Blood pressure elevated today. Volume s tatus improved since admission. Appears euvolemic currently. Continue low-dose furosemide. Agree with titration of beta-razia therapy. Monitor H/H. Consider discontinuation of Eliquis if hemoglobin drops further. I spent a total of 25 minutes on the date of service in preparation, delivery, and documentation of the care provided to this patient, excluding any time spent in the performance of separately billed services. Brayden Bell DO, [facility] Subjective Patient resting in bed comfortably. Denies chest pain or SOB. Voices no complaints. Limited review of systems due to cognitive abilities? Nurse reports possible episode of GI bleeding this morning. Hbg trending lower. Review of Systems Review of Systems: All systems reviewed & are unremarkable except as noted in HPI & below Physical Exam Constitutional: + obese; no acute distress Eyes: PERRL, conjunctivae normal, anicteric sclerae Neck: trachea midline, no thyromegaly Respiratory: normal respiratory effort, lungs clear to auscultation Cardiovascular: Rate/Rhythm: regular rate and regular rhythm (Paced) Heart Sounds: no murmur Vessels: no JVD Extremities: no edema Gastrointestinal (Abdomen): Percussion/Palpation: abdomen soft Results & Data Vital Signs (Past 12 Hours) Vital Signs Temp Pulse Pulse Resp BP BP Pulse Ox 06/20/24 10:22 36.7 C 60 16 192/82 H 96 06/20/24 09:15 63 21 190/77 H 96 06/20/24 07:14 36.4 C L 61 18 176/80 H 95 06/20/24 02:37 36.8 C 67 18 155/70 H 96 O2 Del Method 06/20/24 10:22 Room Air 06/20/24 09:15 Room Air 06/20/24 07:14 Room Air 06/20/24 02:37 Room Air Laboratory Results CBC 06/20/24 Range/Units 07:04 WBC 10.33 (4.8-10.8) K/ul RBC 2.77 L (4.70-6.10) M/uL Hgb 7.7 L (14.0-18.0) g/dl Hct 24.5 L (42.0-52.0) % Plt Count 220 (130-400) K/uL Neut # (Auto) 8.79 H (1.40-6.50) K/uL Lymph # (Auto) 0.73 L (1.20-3.40) K/uL [place] # (Auto) 0.62 H (0.11-0.59) K/uL Eos # (Auto) 0.00 (0.00-0.50) K/uL Baso # (Auto) 0.01 (0.00-0.20) K/uL Comprehensive Metabolic Panel 06/20/24 Range/Units 07:04 Sodium 144 (136-145) mmol/L Potassium 3.1 L (3.5-5.1) mmol/L Chloride 107 (98-107) mmol/L Carbon Dioxide 32 (21-32) mmol/L BUN 29 H (6-23) mg/dl Creatinine 1.60 H D (0.6-1.4) mg/dl Glucose 102 H (70-99(Fasting)) mg/dl Calcium 8.0 L (8.6-10.3) mg/dl Intake and Output 06/19/24 06/20/24 06/20/24 22:59 06:59 14:59 Intake Total 268.283 / 1060.000 100 / 100 Output Total / Balance 267.283 / 1058.000 99 / 99 Intake: IV 168.283 / 600.000 100 / 100 Heparin 94142 Unit/500 ml D5w 168.283 / 500.000 25,000 units In 500 ml @ 650 UNITS/HR 13 mls/hr IV .Q24H [facility] Rx#:[id number] Iron Sucrose 300 mg In Sodium 0 / 0 Chloride 0.9% 250 ml @ 176.667 mls/hr IV 1130 ONE Rx#:[id number] Magnesium Sulfate / D5w 1 gm In 100 / 100 100 ml @ 50 mls/hr IV Q2H [facility] Rx#:[id number] Oral 100 / 460 Output: # Bowel Movements / 2 Other: Other Intake Source sips # Unmeasured Voids 1 Weight 101.1 kg 101.1 kg Patient Weight 06/21/24 06:59 Weight 101.1 kg Diagnostic Findings Telemetry reviewed: AV paced rhythm with short episode of possible atrial tach. 2 episodes noted since yesterday. Both during presumed sleep lasting 15-30 seconds. Medications Administered Current Inpatient Medications Acetaminophen (Acetaminophen 500 Mg Tab) 500 mg PO Q8 [facility] Stop: 07/16/24 21:59 Last Admin: 06/20/24 06:22 Dose: 500 mg Apixaban (Apixaban 5 Mg Tablet) 5 mg PO BID [facility] Stop: 07/19/24 20:59 Last Admin: 06/20/24 08:24 Dose: 5 mg Aspirin (Aspirin 81 Mg Ectab) 81 mg PO QAM [facility] Stop: 07/17/24 12:59 Last Admin: 06/20/24 09:56 Dose: 81 mg Atorvastatin Calcium (Atorvastatin 40 Mg Tab) 80 mg PO HS [facility] Stop: 07/17/24 20:59 Last Admin: 06/19/24 21:32 Dose: 80 mg Dextrose (Dextrose 50% 50 Ml Syringe) 25 - 50 ml IV UD PRN; Protocol PRN Reason: Hypoglycemia Protocol Stop: 07/14/24 17:32 Last Admin: 06/16/24 06:18 Dose: 25 ml Furosemide (Furosemide 20 Mg Tab) 10 mg PO [id number] [facility] Stop: 07/18/24 16:59 Last Admin: 06/20/24 08:23 Dose: 10 mg Glucagon (Glucagon For Inj 1 Mg Vial) 1 mg SQ UD PRN; Protocol PRN Reason: Hypoglycemia Protocol Stop: 07/14/24 17:32 Glucose (Glucose 40% Gel 15 Gm Tube) 15 - 30 gm PO UD PRN; Protocol PRN Reason: Hypoglycemia Protocol Stop: 07/14/24 17:32 Glucose (Glucose 10 Tab/Tube) 4 - 8 tab PO UD PRN; Protocol PRN Reason: Hypoglycemia Protocol Stop: 07/14/24 17:32 Hydromorphone HCl (Hydromorphone Inj 0.5 Mg/0.5 Ml Syr) 0.25 mg IV Q4H PRN PRN Reason: Moderate Pain (4,5,6) on NRS Stop: 06/28/24 17:32 Hydromorphone HCl (Hydromorphone Inj 0.5 Mg/0.5 Ml Syr) 0.5 mg IV Q4H PRN PRN Reason: Severe Pain (7,8,9,10) on NRS Stop: 07/03/24 12:29 Hydrocortisone Sodium (Succinate 50 mg/ Syringe) 1 mls @ 4 mls/min IV Q12H [facility] Stop: 07/17/24 22:59 Last Admin: 06/19/24 23:06 Dose: 4 mls/min Magnesium Sulfate/Dextrose (Magnesium Sulfate / D5w) 1 gm in 100 mls @ 50 mls/hr IV Q2H [facility] Stop: 06/20/24 12:29 Last Admin: 06/20/24 11:09 Dose: 50 mls/hr Insulin Aspart (Insulin Aspart Per Unit Charge) 0 units SC ACHS [facility] Stop: 07/17/24 07:29 Last Admin: 06/20/24 08:19 Dose: Not Given Insulin Glargine (Lantus Per Unit Charge) 10 units SC DAILY [facility] Stop: 07/20/24 08:59 Last Admin: 06/20/24 08:30 Dose: 10 units Levothyroxine Sodium (Levothyroxine Sodium 112 Mcg Tablet) 112 mcg PO DAILYBB [facility] Stop: 07/18/24 06:29 Last Admin: 06/20/24 06:22 Dose: 112 mcg Metoprolol Succinate (Metoprolol Succ 25mg Ext Rel Tab) 75 mg PO BID [facility] Stop: 07/19/24 20:59 Last Admin: 06/20/24 08:24 Dose: 75 mg Miconazole Nitrate (Miconazole Nitrate Powder 85 Gm) 1 appln EXT PRN PRN PRN Reason: Affected Skin Folds Stop: 07/16/24 10:27 Miscellaneous (Carbohydrates For Hypoglycemia ) 15 - 30 gm PO UD PRN PRN Reason: Hypoglycemia Protocol Stop: 07/14/24 17:32 Last Admin: 06/16/24 11:33 Dose: 15 gm Miscellaneous Information (Pharmacy Glycemic Mgmt Consult) 1 each N/A UD PRN PRN Reason: Consult Stop: 07/17/24 07:04 Ondansetron HCl (Ondansetron Inj 2 Mg/Ml 2 Ml Vial) 4 mg IV Q4H PRN PRN Reason: Nausea Stop: 07/14/24 17:32 Potassium Chloride (Potassium Chloride 10 Meq Tabcr) 10 meq PO BID [facility] Stop: 07/18/24 20:59 Last Admin: 06/20/24 08:29 Dose: 10 meq (4) Hypertension Hypertension type: primary hypertension Qualified Code(s): I10 - Essential (primary) hypertension
[2024-06-20] MEDS: METOPROLOL SUCC 25MG EXT REL TAB PO ONE (12:48)
[2024-06-20] MEDS: amLODIPine BESYLATE 5 MG TAB PO SCH (12:48)
--- NOTE | 2024-06-20 15:19 | Hospitalist Progress Note ---
Date of Service June 20, 2024 Assessment & Plan (1) Incarcerated ventral hernia: Plan: 79-year-old male with history of recent DVT/PE, recurrent DVT/PE, CKD, HFpEF, DM 2 who presented with an incarcerated hernia requiring emergent surgical intervention. He is high risk due to active anticoagulation with Eliquis, recurrent DVT/PE, underlying CAD/HFpEF although near euvolemic at time of assessment, CKD, and insulin-dependent DM. Patient understands high risk of c omplications but requires emergent surgical intervention for an incarcerated hernia with associated elevated lactate and bowel obstruction. He did proceed emergently to surgical intervention (2) Small bowel obstruction: Plan: Incarcerated Hernia, associated SBO S/p emergent surgical repair 06/14/2024 Dressings intact, stable Surgery following,tolerating advancing diet Up to chair at least 3 times daily. (3) Mass of head of pancreas: Plan: Patient with recent EUS and biopsy. Pending follow-up to [facility]. Records pending, per family report pancreatic mass is premalignant Patient has a indwelling bare-metal stent and plastic stent in place. No acute change in management of these (4) Chronic kidney disease, stage IV (severe): Plan: CKD 4 Baseline creatinine approximately 2.32.5 Creatinine remains at baseline, stable (5) Acute blood loss anemia: Plan: Anemia Postoperative, downtrending several measurements and uptrending on recheck morning of 06/15. Downtrending again 06/16 although is with some increased volume overload and is net positive suspect some dilution Review of prior iron studies were within normal ferritin however low transferrin saturation. Suspect his ferritin is elevated in context of his multiple illnesses, acute/subacute DVT and he does have underlying iron deficiency Venofer ordered 06/17 Hemoglobin stable - Transition to eliquis 06/19/24 cautiously watch with lower hgb (6) DVT (deep venous thrombosis): Plan: Current DVT/PE Last right lower extremity DVT noted 05/2024 Eliquis held perioperatively. Reversal was not recommended due to high recurrent clot risk Anticoagulation was resumed. (7) CHF (congestive heart failure): Plan: -HFpEF, Hx CAD, Pacer Last EF 55 to 60% echo 09/2023. Euvolemic - Hx CAD PCI 2012, pacer 05/07 CHB 2014. Aspirin 81mg resumed. EKG: Dual paced, no acute ischemic changes. Metoprolol back to p.o. Patient acute volume overload with inadequate output to 20 mg IV Lasix, dose was increased to 60 mg and then subsequently 40 mg twice daily with good output. Volume status improved. -Cardiology following. oral Lasix. (8) PAF (paroxysmal atrial fibrillation): Plan: Device interrogated. Likely exacerbated by acute illness. Improved with beta- razia. Anticoagulated as noted. Cardiology following. (9) Diabetes: Plan: Oral medications held Mounjaro held BSG greatly improved following steroid administration.? Relative AI as noted below. SSI resume (10) Diabetes type 2, uncontrolled: (11) Hypothyroidism: Plan: Synthroid resumed Plan PT recommending d/c to SNF rehab upon d/c. Pt will be medically ready once heme stable on anticoagulation. Admission and Anticipated Discharge Date Admission Date: June 14, 2024 Subjective pt is doing well has no complaints, did have some mild blood in stool, mild drop in hgb, recheck stable for rehab in short term future if hgb remains stable with eliquis Physical Exam Physical Exam: awake and alert, cardiac is regular lungs are clear abs is soft and non tender Results & Data Results & Data Vital Signs (Past 12 Hours) Vital Signs Temp Pulse Pulse Pulse Resp BP BP 06/20/24 14:37 63 06/20/24 10:22 98.1 F 60 16 192/82 H 06/20/24 09:15 63 21 190/77 H 06/20/24 07:14 97.5 F L 61 18 176/80 H 06/20/24 07:00 63 Pulse Ox O2 Del Method 06/20/24 14:37 06/20/24 10:22 96 Room Air 06/20/24 09:15 96 Room Air 06/20/24 07:14 95 Room Air 06/20/24 07:00 Laboratory Results review chemistry, replete k+ review chemistry ordered repeat PG Care Time/CCT Total # of Minutes Spent Total Time Spent with Patient: Total time spent is greater than 50% in coordination of care (as documented) at patient's floor/unit and/or counseling patient: Coding Level of Care Code 47593 SUB INP/OBS CARE 3/50MIN Diagnoses Incarcerated ventral hernia K43.6 Small bowel obstruction K56.609 Mass of head of pancreas K86.89 Chronic kidney disease, stage IV (severe) N18.4 Acute blood loss anemia D62 DVT (deep venous thrombosis) I82.409 CHF (congestive heart failure) I50.9 PAF (paroxysmal atrial fibrillation) I48.0 Diabetes E11.9 Uncontrolled type 2 diabetes mellitus with hypoglycemia without coma E11.649 Glycemic state: with hypoglycemia Coma presence: without coma Hypothyroidism, unspecified type E03.9 Hypothyroidism type: unspecified (10) Diabetes type 2, uncontrolled Glycemic state: with hypoglycemia Coma presence: without coma Qualified Code(s): E11.649 - Type 2 diabetes mellitus with hypoglycemia without coma (11) Hypothyroidism Hypothyroidism type: unspecified Qualified Code(s): E03.9 - Hypothyroidism, unspecified
[2024-06-20] MEDS: POTASSIUM CHLORIDE / WTR 10 MEQ/100 ML PLCT IV SCH (16:31)
[2024-06-20] MEDS: METOPROLOL SUCC 50MG EXT REL TAB PO SCH (20:33)
[2024-06-20] MEDS: POTASSIUM CHLORIDE CRTAB 20 MEQ TABCR PO SCH (20:39)
[2024-06-21 07:15] LABS: Hematocrit (blood only) 24.7 % (42.0-52.0); Hemoglobin 7.7 g/dl (14.0-18.0); Mean Corpuscular Hemoglobin 27.7 pg (25.0-34.0); Mean Corpuscular Hgb Conc 31.2 g/dL (32.0-36.0); Mean Corpuscular Volume 88.8 fL (80.0-100.0); Mean Platelet Volume 10.6 fL (9.4-12.4); Platelet Count 214 K/uL (130-400); RDW Coefficient of Variation 18.1 % (11.5-14.5); Red Blood Count 2.78 M/uL (4.70-6.10); White Blood Count 13.11 K/ul (4.8-10.8)
[2024-06-21 07:41] LABS: BUN Creatinine Ratio 18.1 (10-20); Calcium 7.9 mg/dl (8.6-10.3); Potassium 3.4 mmol/L (3.5-5.1)
--- NOTE | 2024-06-21 08:29 | Surgery Progress Note ---
Date of Service June 21, 2024 Assessment & Plan (1) S/P small bowel resection: Plan: Patient is POD #7 s/p incarcerated Ventral Hernia Repair, Converted to Open Small Bowel Resection Dr Bensno WBC mildly increased today at 13k, VSS , afebrile. tolerated to Low Fiber. Hemoccult positive stool but H&H stable Incisions are c/d/i with danica in place. Daily dressing changes. Encouraged ambulation and IS and PT/OT Continue medical management per primary team Discussed with Dr. Ruggiero who agrees with above Admission and Anticipated Discharge Date Admission Date: June 14, 2024 Subjective sleeping upon entering room, very tired, limited ROS patient kept falling asleep no abdominal pain had bowel movements no n,v tolerating diet but has not had breakfast yet this am Physical Exam Constitutional: WD/WN, vitals as above + morbidly obese, cooperative and comfortable Respiratory: normal respiratory effort; no respiratory distress and no labored breathing Gastrointestinal (Abdomen): Inspection/Auscultation: abdomen normal to inspection, + abdominal surgical incision (c/d/i with danica) and + hypoactive bowel sounds; abdomen not distended and + abnormal bowel sounds Percussion/Palpation: abdomen soft; abdomen nontender, no guarding and abdomen not rigid Skin: no rashes, warm and dry Psychiatric: Orientation: alert Results & Data Vital Signs (Past 12 Hours) Vital Signs Temp Pulse Pulse Pulse Resp BP Pulse Ox 06/21/24 07:23 36.8 C 65 18 183/69 H 94 06/21/24 02:40 36.8 C 63 20 151/70 H 94 06/20/24 23:26 61 06/20/24 22:50 36.6 C 60 18 154/73 H 96 O2 Del Method 06/21/24 07:23 Room Air 06/21/24 02:40 Room Air 06/20/24 23:26 06/20/24 22:50 Room Air Laboratory Results 06/21/24 06/21/24 06/20/24 Range/Units 07:21 06:27 20:06 WBC 13.11 H (4.8-10.8) K/ul RBC 2.78 L (4.70-6.10) M/uL Hgb 7.7 L (14.0-18.0) g/dl Hct 24.7 L (42.0-52.0) % MCV 88.8 (80.0-100.0) fL MCH 27.7 (25.0-34.0) pg MCHC 31.2 L (32.0-36.0) g/dL RDW Std Deviation 59.0 H (36.4-46.3) fL RDW Coeff of Rito 18.1 H (11.5-14.5) % Plt Count 214 (130-400) K/uL MPV 10.6 (9.4-12.4) fL Sodium 143 (136-145) mmol/L Potassium 3.4 L (3.5-5.1) mmol/L Chloride 108 H (98-107) mmol/L Carbon Dioxide 31 (21-32) mmol/L Anion Gap 4 (3-11) BUN 26 H (6-23) mg/dl Creatinine 1.44 H (0.6-1.4) mg/dl Est Cr Clr Drug Dosing 47.0 ml/min eGFR 50.05 BUN/Creatinine Ratio 18.1 (10-20) Glucose 108 H (70-99(Fasting)) mg/dl POC Glucose 111 H 233 H (70-99) mg/dl Calcium 7.9 L (8.6-10.3) mg/dl Stool Occult Bld Scrn (Negative) 06/20/24 06/20/24 06/20/24 Range/Units 16:59 16:38 13:50 WBC (4.8-10.8) K/ul RBC (4.70-6.10) M/uL Hgb (14.0-18.0) g/dl Hct (42.0-52.0) % MCV (80.0-100.0) fL MCH (25.0-34.0) pg MCHC (32.0-36.0) g/dL RDW Std Deviation (36.4-46.3) fL RDW Coeff of Rito (11.5-14.5) % Plt Count (130-400) K/uL MPV (9.4-12.4) fL Sodium (136-145) mmol/L Potassium (3.5-5.1) mmol/L Chloride (98-107) mmol/L Carbon Dioxide (21-32) mmol/L Anion Gap (3-11) BUN (6-23) mg/dl Creatinine (0.6-1.4) mg/dl Est Cr Clr Drug Dosing ml/min eGFR BUN/Creatinine Ratio (10-20) Glucose (70-99(Fasting)) mg/dl POC Glucose 177 H 174 H (70-99) mg/dl Calcium (8.6-10.3) mg/dl Stool Occult Bld Scrn Positive A (Negative) 06/20/24 06/20/24 Range/Units 12:55 11:13 WBC (4.8-10.8) K/ul RBC (4.70-6.10) M/uL Hgb 7.8 L (14.0-18.0) g/dl Hct (42.0-52.0) % MCV (80.0-100.0) fL MCH (25.0-34.0) pg MCHC (32.0-36.0) g/dL RDW Std Deviation (36.4-46.3) fL RDW Coeff of Rito (11.5-14.5) % Plt Count (130-400) K/uL MPV (9.4-12.4) fL Sodium (136-145) mmol/L Potassium (3.5-5.1) mmol/L Chloride (98-107) mmol/L Carbon Dioxide (21-32) mmol/L Anion Gap (3-11) BUN (6-23) mg/dl Creatinine (0.6-1.4) mg/dl Est Cr Clr Drug Dosing ml/min eGFR BUN/Creatinine Ratio (10-20) Glucose (70-99(Fasting)) mg/dl POC Glucose 144 H (70-99) mg/dl Calcium (8.6-10.3) mg/dl Stool Occult Bld Scrn (Negative)
[2024-06-21] MEDS: POTASSIUM CHLORIDE CRTAB 20 MEQ TABCR PO STA (08:38)
[2024-06-21] MEDS: IRON POLYSACCHARIDE COMPLEX 150 MG CAPSULE PO SCH (09:47)
--- NOTE | 2024-06-21 13:32 | Cardiology Progress Note ---
Date of Service June 21, 2024 Assessment & Plan (1) PAT (paroxysmal atrial tachycardia): (2) Cardiac pacemaker: (3) CHF (congestive heart failure): (4) Hypertension: Plan 79-year-old male with complex history including known conduction system disease status post dual-chamber pacemaker 2014 with recent generator exchange March 2024, chronic diastolic heart failure, CKD , past and recent DVT and pulmonary emboli on chronic anticoagulation. Patient hospitalized with acute bowel obstruction, incarcerated periumbilical hernia undergoing urgent surgery on 06/14/2024. Patient slowly recovering postoperatively but making progress. Telemetry demonstrated atrial sensed and ventricular paced rhythm predominantly with multiple short salvos this afternoon of probable atrial tachycardia with pacemaker pacing at upper limits of its device setting at 120 bpm. No acute hemodynamic findings or cardiac concerns Has been treated for probable component of diastolic heart failure/volume overload receiving 20 mg IV furosemide yesterday 60 mg IV this morning and 40 mg this p.m. Recommendations 1. Paroxysmal atrial tachycardia with ventricular pacing. Device interrogation in progress. Patient now taking p.o. will discontinue IV metoprolol. Begin metoprolol succinate 50 mg twice per day. Evening dose given now. Will treat hypokalemia with 40 meq p.o. potassium now Repeat BMP in a.m. 2. Acute on chronic diastolic heart failure: Will hold IV furosemide after evening dose this evening and reassess in a.m. Metoprolol succinate resumed: Would continue to hold amlodipine, losartan 3. Volume overload/right pleural effusion possible component of atelectasis by review of x-ray. Incentive spirometry ordered patient has responded to IV diuretics. Would repeat chest x-ray in a.m. given difficult examination 4. DVT pulmonary emboli anticoagulation with IV heparin ongoing 06/17/2024 1. Paroxysmal atrial tachycardia/paroxysmal atrial fibrillation with ventricular paced rhythm. Review of device interrogations recent and most past patient with intermittent atrial fibrillation and atrial tachycardia. Current exacerbation is likely brought on by acute illness/hypokalemia/hypoxia Improved after resuming oral beta-razia, potassium supplement Warrants chronic anticoagulation as for multiple reasons. GI/ surgical concerns appear to be improving. Moving bowels no nausea or vomiting taking medications well Recommendations: Continue metoprolol succinate 50 mg twice per day. Resume oral anticoagulation when stable Additional potassium today 20 mEq orally 2. Acute on chronic diastolic heart failure appears to be trending towards euvolemic. Chest x-ray improved. Will discontinue IV furosemide resume oral furosemide 20 mg p.o. daily 3. Complete heart block status post dual-chamber pacemaker insertion: Normal device function 06/18/2024. 1. Paroxysmal atrial tachycardia/atrial fibrillation with pacer therapies baseline ventricular pacing. Pacemaker functioning appropriately Continue anticoagulation Continue current dosing of metoprolol though room to increase if necessary for further arrhythmias. Suspect hypokalemia contributing Additional potassium 4 mill cloven's given today with 10 mill colons twice daily ordered 2. Acute on chronic diastolic heart failure: Furosemide resumed at 20 mg daily 3. Longstanding hypertension with blood pressures now trending elevated. Previously treated with losartan and amlodipine. Would recommend resuming losartan previous dose 50 mg/day consider reduced dose on initial treatment 4. Complete heart block status post dual-chamber pacemaker with pacemaker atrial fibrillation interventions turned on 06/19/24 1. PAT/PAF - Only several short bursts of atrial tach vs atrial fib on monitor overnight or this morning, lasting about 10 seconds each. Increase metoprolol to 75 mg BID for arrhythmias and HTN supplement potassium with additional 40 meq this morning. Continue regular dosing of potassium 10 meq BID. Pacemaker functioning appropriately 2. Chronic HFpEF - Oral Furosemide resumed. Appears euvolemic 3. HTN - BP trending higher. -increase metoprolol to 75 mg BID -Losartan on hold this admission. Creatinine improving. Consider resuming lower dose. -Resume amlodipine if needed as well. 06/20/24: 1. PAT/PAF - Several short episodes overnight on telemetry, lasting 15-30 seconds. No sustained arrhythmias -increase metoprolol to 100 mg BID for HR and BP support -supplement magnesium and potassium this morning -Continue Eliquis for now, but if he has recurrent GI bleeding or hbg drops further, may need to hold? 2. HFpEF -continue furosemide 3. HTN -BP remains uncontrolled -increase metoprolol to 100 mg BID for HR/BP -resume amlodipine 2.5 mg daily (prior home dose was 5 mg) -losartan remains on hold due to JUANPABLO - creatinine improving 06/21/24: 1. PAT/PAF - no recurrent arrhythmias overnight -continue metoprolol 100 mg BID -continue Eliquis. Hbg stable but + FOBT. Monitor. Hold Eliquis if recurrent GI bleeding is a concern. 2. HTN - Uncontrolled -increase amlodipine to 5 mg (prior home dose) -continue higher dose metoprolol at 100 mg BID. -losartan has been on hold due to JUANPABLO - now improving. likely will need to resume 3. HFpEF - appears euvolemic. 4. Ongoing electrolyte disturbances -supplement potassium - increased to 20 meq BID by hospitalist. Goal potassium 4-5. -recheck magnesium in AM. Keep > 2.0 No further cardiac testing warranted. Continue to uptitrate and resume oral antihypertensives. Continue to supplement electrolytes Can be managed by hospitalist service. Will sign off. Please contact food preparation supervisor cardiology provider with additional questions or concerns. Case discussed with Dr. Bell I spent a total of 30 minutes on the date of service in preparation, delivery, and documentation of the care provided to this patient, excluding any time spent in the performance of separately billed services. Greer Armando PA-C Department of Cardiology, [facility] This chart was completed in part utilizing Speech Voice Recognition Software. Grammatical errors, random word insertions, pronoun errors, and incomplete sentences are an occasional consequence of this system due to software limitations, ambient noise, and hardware issues. Any formal questions or concerns about the content, text, or information contained within the body of this dictation should be directly addressed to the provider for clarification. Admission and Anticipated Discharge Date Admission Date: June 14, 2024 Supervising Physician Co-Signing Physician Notes I have personally performed a history and physical examination on the patient. I have reviewed the advance practitioner's documentation, and I agree with, and take responsibility for the plan of care. 79-year-old male seen examined at the bedside. Poor historian. Denies chest pain or shortness of breath. Blood pressure remains elevated Volume status improved since admission. Appears euvolemic currently. Continue low-dose furosemide.Continue 100 mg metoprolol twice daily. Increase amlodipine to 5 mg daily. Consider restarting losartan. Monitor H/H. Consider discontinuation of Eliquis if hemoglobin drops further. Cardiology will sign off. Please call with additional concerns/questions. I spent a total of 25 minutes on the date of service in preparation, delivery, and documentation of the care provided to this patient, excluding any time spent in the performance of separately billed services. Brayden Bell DO, [facility] Subjective Patient resting comfortably in bed. Voices no acute complaints. Denies chest pain or SOB. Review of Systems Review of Systems: All systems reviewed & are unremarkable except as noted in HPI & below Physical Exam Constitutional: + obese; no acute distress Eyes: PERRL, conjunctivae normal, anicteric sclerae Neck: trachea midline, no thyromegaly Respiratory: normal respiratory effort, lungs clear to auscultation Cardiovascular: Rate/Rhythm: regular rate and regular rhythm (Paced) Heart Sounds: no murmur Vessels: no JVD Extremities: no edema Gastrointestinal (Abdomen): Percussion/Palpation: abdomen soft Results & Data Vital Signs (Past 12 Hours) Vital Signs Temp Pulse Resp BP Pulse Ox O2 Del Method 06/21/24 07:23 36.8 C 65 18 183/69 H 94 Room Air 06/21/24 02:40 36.8 C 63 20 151/70 H 94 Room Air Laboratory Results CBC 06/20/24 06/21/24 Range/Units 12:55 06:27 WBC 13.11 H (4.8-10.8) K/ul RBC 2.78 L (4.70-6.10) M/uL Hgb 7.8 L 7.7 L (14.0-18.0) g/dl Hct 24.7 L (42.0-52.0) % Plt Count 214 (130-400) K/uL Comprehensive Metabolic Panel 06/21/24 Range/Units 06:27 Sodium 143 (136-145) mmol/L Potassium 3.4 L (3.5-5.1) mmol/L Chloride 108 H (98-107) mmol/L Carbon Dioxide 31 (21-32) mmol/L BUN 26 H (6-23) mg/dl Creatinine 1.44 H (0.6-1.4) mg/dl Glucose 108 H (70-99(Fasting)) mg/dl Calcium 7.9 L (8.6-10.3) mg/dl Intake and Output 06/20/24 06/21/24 06/21/24 22:59 06:59 14:59 Intake Total 400 / 840 Output Total 1 303 Balance 399 / 537 Intake: IV 300 / 500 Potassium Chloride / Wtr 10 meq 300 / 300 In 100 ml @ 100 mls/hr IV Q1H DARREN Rx#:[id number] Oral 100 / 340 Output: # Bowel Movements 1 / 3 Other: Other Intake Source sips Weight 101.3 kg Diagnostic Findings Telemetry reviewed: AV paced in the 60's. no arrhythmias Medications Administered Current Inpatient Medications Acetaminophen (Acetaminophen 500 Mg Tab) 500 mg PO Q8 [facility] Stop: 07/16/24 21:59 Last Admin: 06/21/24 05:46 Dose: 500 mg Amlodipine Besylate (Amlodipine Besylate 5 Mg Tab) 2.5 mg PO QAM [facility] Stop: 07/20/24 12:29 Last Admin: 06/21/24 08:32 Dose: 2.5 mg Apixaban (Apixaban 5 Mg Tablet) 5 mg PO BID [facility] Stop: 07/19/24 20:59 Last Admin: 06/21/24 08:33 Dose: 5 mg Aspirin (Aspirin 81 Mg Ectab) 81 mg PO QAM [facility] Stop: 07/17/24 12:59 Last Admin: 06/21/24 08:31 Dose: 81 mg Atorvastatin Calcium (Atorvastatin 40 Mg Tab) 80 mg PO HS [facility] Stop: 07/17/24 20:59 Last Admin: 06/20/24 20:34 Dose: 80 mg Dextrose (Dextrose 50% 50 Ml Syringe) 25 - 50 ml IV UD PRN; Protocol PRN Reason: Hypoglycemia Protocol Stop: 07/14/24 17:32 Last Admin: 06/16/24 06:18 Dose: 25 ml Furosemide (Furosemide 20 Mg Tab) 10 mg PO [id number] [facility] Stop: 07/18/24 16:59 Last Admin: 06/21/24 08:32 Dose: 10 mg Glucagon (Glucagon For Inj 1 Mg Vial) 1 mg SQ UD PRN; Protocol PRN Reason: Hypoglycemia Protocol Stop: 07/14/24 17:32 Glucose (Glucose 40% Gel 15 Gm Tube) 15 - 30 gm PO UD PRN; Protocol PRN Reason: Hypoglycemia Protocol Stop: 07/14/24 17:32 Glucose (Glucose 10 Tab/Tube) 4 - 8 tab PO UD PRN; Protocol PRN Reason: Hypoglycemia Protocol Stop: 07/14/24 17:32 Hydromorphone HCl (Hydromorphone Inj 0.5 Mg/0.5 Ml Syr) 0.25 mg IV Q4H PRN PRN Reason: Moderate Pain (4,5,6) on NRS Stop: 06/28/24 17:32 Hydromorphone HCl (Hydromorphone Inj 0.5 Mg/0.5 Ml Syr) 0.5 mg IV Q4H PRN PRN Reason: Severe Pain (7,8,9,10) on NRS Stop: 07/03/24 12:29 Hydrocortisone Sodium (Succinate 50 mg/ Syringe) 1 mls @ 4 mls/min IV Q12H [facility] Stop: 07/17/24 22:59 Last Admin: 06/21/24 12:07 Dose: 4 mls/min Insulin Aspart (Insulin Aspart Per Unit Charge) 0 units SC ACHS [facility] Stop: 07/17/24 07:29 Last Admin: 06/21/24 12:08 Dose: Not Given Insulin Glargine (Lantus Per Unit Charge) 10 units SC DAILY [facility] Stop: 07/20/24 08:59 Last Admin: 06/21/24 08:38 Dose: 10 units Insulin Glargine (Lantus Per Unit Charge) 0 units SC HS [facility]; Protocol Stop: 07/20/24 20:59 Last Admin: 06/20/24 20:31 Dose: 10 units Levothyroxine Sodium (Levothyroxine Sodium 112 Mcg Tablet) 112 mcg PO DAILYBB [facility] Stop: 07/18/24 06:29 Last Admin: 06/21/24 05:46 Dose: 112 mcg Metoprolol Succinate (Metoprolol Succ 50mg Ext Rel Tab) 100 mg PO BID [facility] Stop: 07/20/24 20:59 Last Admin: 06/21/24 08:33 Dose: 100 mg Miconazole Nitrate (Miconazole Nitrate Powder 85 Gm) 1 appln EXT PRN PRN PRN Reason: Affected Skin Folds Stop: 07/16/24 10:27 Miscellaneous (Carbohydrates For Hypoglycemia ) 15 - 30 gm PO UD PRN PRN Reason: Hypoglycemia Protocol Stop: 07/14/24 17:32 Last Admin: 06/16/24 11:33 Dose: 15 gm Miscellaneous Information (Pharmacy Glycemic Mgmt Consult) 1 each N/A UD PRN PRN Reason: Consult Stop: 07/17/24 07:04 Ondansetron HCl (Ondansetron Inj 2 Mg/Ml 2 Ml Vial) 4 mg IV Q4H PRN PRN Reason: Nausea Stop: 07/14/24 17:32 Polysaccharide Iron Complex (Iron Polysaccharide Complex 150 Mg Capsule) 150 mg PO DAILY [facility] Stop: 07/21/24 08:59 Last Admin: 06/21/24 09:47 Dose: 150 mg Potassium Chloride (Potassium Chloride Crtab 20 Meq Tabcr) 20 meq PO BID DARREN Stop: 07/20/24 20:59 Last Admin: 06/21/24 08:43 Dose: 20 meq (4) Hypertension Hypertension type: primary hypertension Qualified Code(s): I10 - Essential (primary) hypertension
--- NOTE | 2024-06-21 18:30 | Hospitalist Progress Note ---
Date of Service June 21, 2024 Assessment & Plan (1) Incarcerated ventral hernia: (2) Mass of head of pancreas: (3) DVT (deep venous thrombosis): (4) PAF (paroxysmal atrial fibrillation): Plan: . (5) Diabetes: (6) Chronic kidney disease, stage IV (severe): (7) Hypothyroidism: Plan 79-year-old male with history of recent DVT/PE, recurrent DVT/PE, CKD, HFpEF, DM 2 who presented with an incarcerated hernia with resultant small bowel obstruction requiring emergent surgical intervention. He is high risk due to active anticoagulation with Eliquis, recurrent DVT/PE, underlying CAD/HFpEF although near euvolemic at time of assessment, CKD, and insulin-dependent DM. Patient understands high risk of complications but requires emergent surgical intervention for an incarcerated hernia with associated elevated lactate and bowel obstruction. He did proceed emergently to surgical intervention has done well post op and looking for subacute rehab pancreatic head mass Patient with recent EUS and biopsy. Pending follow-up to [facility]. Records pending, per family report pancreatic mass is premalignant Patient has a indwelling bare-metal stent and plastic stent in place. No acute change in management of these Acute blood loss anemia Postoperative, downtrending several measurements and uptrending on recheck morning of 06/15. Downtrending again 06/16 although is with some increased volume overload and is net positive suspect some dilution Review of prior iron studies were within normal ferritin however low transferrin saturation. Suspect his ferritin is elevated in context of his multiple illnesses, acute/subacute DVT and he does have underlying iron deficiency Venofer ordered 06/17 Hemoglobin stable - Transition to eliquis 06/19/24 cautiously watch with lower hgb -HFpEF, Hx CAD, Pacer Last EF 55 to 60% echo 09/2023. Euvolemic - Hx CAD PCI 2012, pacer 05/07 [facility]B 2014. Aspirin 81mg resumed. EKG: Dual paced, no acute ischemic changes. Metoprolol back to p.o. Patient acute volume overload with inadequate output to 20 mg IV Lasix, dose was increased to 60 mg and then subsequently 40 mg twice daily with good output. Volume status improved. . oral Lasix. DVT/PE Last right lower extremity DVT noted 05/2024 Eliquis held perioperatively. Reversal was not recommended due to high rec urrent clot risk Anticoagulation was resumed. PT recommending d/c to SNF rehab upon d/c. Pt will be medically ready once heme stable on anticoagulation. Admission and Anticipated Discharge Date Admission Date: June 14, 2024 Subjective pr has no focal complaints, has some memory loss eating and having bowel moments Physical Exam Physical Exam: awake and alert, cardiac is regular lungs are clear abs is soft and non tender Results & Data Results & Data Vital Signs (Past 12 Hours) Vital Signs Temp Pulse Resp BP Pulse Ox O2 Del Method 06/21/24 15:12 98.1 F 61 20 155/68 H 95 Room Air 06/21/24 07:23 98.2 F 65 18 183/69 H 94 Room Air Laboratory Results review cbc review chemistry updated family on phone PG Care Time/CCT Total # of Minutes Spent Total Time Spent with Patient: Total time spent is greater than 50% in coordination of care (as documented) at patient's floor/unit and/or counseling patient: Coding Level of Care Code 85788 SUB INP/OBS CARE 3/50MIN Diagnoses Incarcerated ventral hernia K43.6 Mass of head of pancreas K86.89 DVT (deep venous thrombosis) I82.409 PAF (paroxysmal atrial fibrillation) I48.0 Diabetes E11.9 Chronic kidney disease, stage IV (severe) N18.4 Hypothyroidism, unspecified type E03.9 Hypothyroidism type: unspecified (7) Hypothyroidism Hypothyroidism type: unspecified Qualified Code(s): E03.9 - Hypothyroidism, unspecified
[2024-06-22 07:19] LABS: Magnesium 1.9 mg/dl (1.7-2.4)
[2024-06-22] MEDS: amLODIPine BESYLATE 5 MG TAB PO SCH (08:14)
[2024-06-22 09:09] LABS: BUN Creatinine Ratio 17.7 (10-20); Calcium 7.6 mg/dl (8.6-10.3); Potassium 3.4 mmol/L (3.5-5.1)
--- NOTE | 2024-06-22 09:53 | Surgery Progress Note ---
Date of Service June 22, 2024 Assessment & Plan (1) S/P small bowel resection: Plan: Patient is POD #8 s/p incarcerated Ventral Hernia Repair, Converted to Open Small Bowel Resection Dr Benson VSS , afebrile. tolerated to Low Fiber. Hemoccult positive stool but H&H stable (am labs today pending) Incisions are c/d/i with danica in place. Daily dressing changes. Encouraged ambulation and IS and PT/OT Continue medical management per primary team Okay from surgical standpoint for discharge to SNF Follow up with Dr. Benson as scheduled, danica will be removed at follow up visit Discussed with Dr. Ruggiero who agrees with above Admission and Anticipated Discharge Date Admission Date: June 14, 2024 Subjective feeling good, just had large soft bowel movement tolerating diet no abdominal pain Physical Exam Constitutional: WD/WN, vitals as above + morbidly obese, cooperative and comfortable; no acute distress and not ill appearing Respiratory: normal respiratory effort; no respiratory distress and no labored breathing Gastrointestinal (Abdomen): Inspection/Auscultation: abdomen normal to inspection and + abdominal surgical incision (c/d/i with danica); abdomen not distended Percussion/Palpation: abdomen soft; abdomen nontender, no guarding and abdomen not rigid Skin: no rashes, warm and dry Psychiatric: Orientation: alert and oriented to person Results & Data Vital Signs (Past 12 Hours) Vital Signs Temp Pulse Pulse Resp BP Pulse Ox O2 Del Method 06/22/24 07:28 36.7 C 62 17 170/75 H 95 Room Air 06/21/24 22:55 36.6 C 60 18 162/73 H 97 Room Air Laboratory Results 06/22/24 06/22/24 06/21/24 Range/Units 07:27 05:54 20:03 Sodium 141 (136-145) mmol/L Potassium 3.4 L (3.5-5.1) mmol/L Chloride 106 (98-107) mmol/L Carbon Dioxide 28 (21-32) mmol/L Anion Gap 7 (3-11) BUN 25 H (6-23) mg/dl Creatinine 1.41 H (0.6-1.4) mg/dl Est Cr Clr Drug Dosing 48.0 ml/min eGFR 51.33 BUN/Creatinine Ratio 17.7 (10-20) Glucose 172 H (70-99(Fasting)) mg/dl POC Glucose 177 H 268 H (70-99) mg/dl Calcium 7.6 L (8.6-10.3) mg/dl Magnesium 1.9 (1.7-2.4) mg/dl 06/21/24 06/21/24 Range/Units 16:07 11:20 Sodium (136-145) mmol/L Potassium (3.5-5.1) mmol/L Chloride (98-107) mmol/L Carbon Dioxide (21-32) mmol/L Anion Gap (3-11) BUN (6-23) mg/dl Creatinine (0.6-1.4) mg/dl Est Cr Clr Drug Dosing ml/min eGFR BUN/Creatinine Ratio (10-20) Glucose (70-99(Fasting)) mg/dl POC Glucose 155 H 109 H (70-99) mg/dl Calcium (8.6-10.3) mg/dl Magnesium (1.7-2.4) mg/dl
--- NOTE | 2024-06-22 15:15 | Pharmacy Report ---
Pharmacy Glycemic Short Note 2 - Date of Service June 22, 2024 - Glycemic Short BSG Results (Last 24 hours): 06/21/24 06/21/24 06/22/24 16:07 20:03 05:54 Glucose 172 H POC Glucose 155 H 268 H 06/22/24 06/22/24 07:27 11:17 Glucose POC Glucose 177 H 176 H OUTPATIENT ANTIDIABETIC REGIMEN: * Tresiba 40 units SC daily * Admelog SSI * Jardiance 25 mg PO daily * Mounjaro 5mg SC every Wednesday HbA1c: 7.4% on 05/10/24 ASSESSMENT: 06/22/24: * Blood sugars remain reasonably well-controlled * Remains on hydrocortisone 50 mg IV q12h * Plan is for discharge to [facility] today * No changes to regimen today 06/19: * Received 42 units of insulin yesterday, 15 of which were basal. BSGs were 482-121-951-203 mg/dL. * Fasting BSG this AM was 169 mg/dL. Will increase basal by 5 units this AM. * Diet being advanced by surgery, tolerating better. Abx discontinued. Remains on heparin drip. * Will tighten both correction and carb ratio this AM given postprandial hyperglycemia yesterday. Also tightened upper end of goal range. 06/18: * Fasting BSG above goal but significantly improved. Will continue to conservatively titrate basal insulin. * Post prandial hyperglycemia persists. Diet advenced to full liquids. Will tighten carbohydrate coverage. 06/17: Pharmacy re-consulted, BSG > 200 mg/dL x 2. * Patient ordered hydrocortisone 50 mg IV q6h, reduced to q12h dosing on 06/17 PM. * Basal insulin re-introduced at conservative doses d/t previous hypoglycemia. 06/16: Pharmacy signed off glycemic consult 06/15: * 79 year old male presented to ED 06/14 with concern for vomiting over several days. Patient was found to have incarcerated periumbilical hernia with supplemental omental/small bowel incarceration. Patient sent for emergent surgery last evening and pharmacy was consulted for glycemic management postop as patient had persistent hypoglycemia. (POD #1) Unclear when/how much insulin was given prior to admit. * Initial BSG yesterday afternoon was 57mg/dL. Patient received 25ml D50% x 2 and BSG pat to 101mg/dL at 2308. BSG dropped again and by 0229 was 64mg/dL. Another 25ml of d50% was given and subsequent BSG was 93mg/dL. * BSG this morning at 0713 was still only 87mg/dL. * Patient is currently still NPO and has D5LR running at 125ml/hr. No basal insulin is running currently and a very loose bolus insulin regimen is ordered incase his BSG would start to rise. PLAN FOR INPATIENT GLYCEMIC CONTROL: * Hold outpatient diabetes medications * Basal insulin * Lantus 10 units SC BID * Increase basal tomorrow if fasting blood sugar elevated and patient still admitted * Bolus insulin * NovoLog per scale ACHS or Q6hrs while NPO * Goal Range: Low 120 mg/dL - High 150 mg/dL * Correction Factor: 20 mg/dL/unit * Nutritional / Prandial insulin per carb ratio of 1 unit per 7 grams CHO consumed
[2024-06-22] MEDS: POTASSIUM CHLORIDE CRTAB 20 MEQ TABCR PO ONE (16:50)
--- NOTE | 2024-06-22 17:25 | Hospitalist Progress Note ---
Date of Service June 22, 2024 Assessment & Plan (1) Incarcerated ventral hernia: (2) Mass of head of pancreas: (3) DVT (deep venous thrombosis): (4) PAF (paroxysmal atrial fibrillation): Plan: . (5) Diabetes: (6) Chronic kidney disease, stage IV (severe): (7) Hypothyroidism: Plan 79-year-old male with history of recent DVT/PE, recurrent DVT/PE, CKD, HFpEF, DM 2 who presented with an incarcerated hernia with resultant small bowel obstruction requiring emergent surgical intervention. on 06/14 he underwent incarcerated Ventral Hernia Repair, Converted to Open Small Bowel Resection Dr Benson tolerating low fiber diet well, danica will be removed at scheduled follow-up with Dr. Benson has done well post op and currently awaiting placement in subacute rehab pancreatic head mass Patient with recent EUS and biopsy. Pending follow-up to [facility]. Records pending, per family report pancreatic mass is premalignant Patient has a indwelling bare-metal stent and plastic stent in place. No acute change in management of these Acute blood loss anemia Postoperative --iron deficiency - venofer given 06/17 --apixaban restarted 06/19 --AM CBC -acute on chronic HFpEF, Hx CAD, Pacer Last EF 55 to 60% echo 09/2023. - Hx CAD PCI 2012, pacer 05/07 CHB 2014. Aspirin 81mg resumed. EKG: Dual paced, no acute ischemic changes. he was acutely volume overloaded and required diuresis with IV lasix. Currently euvolemic on oral lasix - changed dosing to 20 mg qAM --hypokalemia - K 3.4 on 20 meq bid. continue and add one time dose 20 meq pot DVT/PE Last right lower extremity DVT noted 05/2024 --continue apixaban Cognitive impairment - family has noticed since last summer following a hospitalization for [facility] Ready for dc to SNF Updated and brother at bedside Admission and Anticipated Discharge Date Admission Date: June 14, 2024 Subjective Sukumar is sitting in the chair, his and brother are visiting he has no abdominal pain or nausea he has been tolerating a low fiber diet well, he denies any pain, shortness of breath Physical Exam 2 Physical Exam: PHYSICAL EXAMINATION Last 24h vital signs reviewed, see documentation in flowsheet General: comfortable appearing, no distress, sitting up in chair HEENT: Normocephalic, atraumatic, pupils round and equal, sclerae anicteric, no conjunctival injection, moist mucus membranes. . Hard of hearing Lungs: Normal respiratory effort. Clear to auscultation bilaterally. No RRW Heart: Regular rate and rhythm, no murmurs. No JVD Abdomen: Soft, nontender, nondistended. Bowel sounds present. midline danica are well opposed, no erythema or drainage. second short surgical incision above this also looks good Extremities: Warm, dry, well-perfused. No extremity edema. right upper extremity hematoma and ecchymosis has resolved since last time I saw him Neuro: Alert and oriented x hospital and basic situation, lack of detailed verbal responses unchanged, very hard of hearing, face symmetric, moves 4 extremities well Psych: Normal affect and behavior Results & Data Results & Data Vital Signs (Past 12 Hours) Vital Signs Temp Pulse Resp BP Pulse Ox O2 Del Method 06/22/24 16:55 161/72 H 06/22/24 16:00 36.9 C 60 19 180/71 H 97 Room Air 06/22/24 11:33 36.6 C 60 18 160/85 H 96 Room Air 06/22/24 07:28 36.7 C 62 17 170/75 H 95 Room Air Laboratory Results 06/21/24 06:27 06/22/24 05:54 PG Care Time/CCT Total # of Minutes Spent Total Time Spent with Patient: Total time spent is greater than 50% in coordination of care (as documented) at patient's floor/unit and/or counseling patient: Coding Level of Care Code 66999 SUB INP/OBS CARE 2/35MIN Diagnoses Incarcerated ventral hernia K43.6 Mass of head of pancreas K86.89 DVT (deep venous thrombosis) I82.409 PAF (paroxysmal atrial fibrillation) I48.0 Diabetes E11.9 Chronic kidney disease, stage IV (severe) N18.4 Hypothyroidism, unspecified type E03.9 Hypothyroidism type: unspecified (7) Hypothyroidism Hypothyroidism type: unspecified Qualified Code(s): E03.9 - Hypothyroidism, unspecified
[2024-06-22 20:31] VITALS: RESP 18
[2024-06-22] MEDS: LANTUS PER UNIT CHARGE SC SCH (20:53)
[2024-06-23 06:41] LABS: Hematocrit (blood only) 25.1 % (42.0-52.0); Hemoglobin 7.9 g/dl (14.0-18.0); Mean Corpuscular Hemoglobin 28.5 pg (25.0-34.0); Mean Corpuscular Hgb Conc 31.5 g/dL (32.0-36.0); Mean Corpuscular Volume 90.6 fL (80.0-100.0); Mean Platelet Volume 10.9 fL (9.4-12.4); Platelet Count 206 K/uL (130-400); RDW Coefficient of Variation 18.6 % (11.5-14.5); RDW Standard Deviation 59.9 fL (36.4-46.3); Red Blood Count 2.77 M/uL (4.70-6.10); White Blood Count 11.59 K/ul (4.8-10.8)
[2024-06-23 07:14] LABS: BUN Creatinine Ratio 17.4 (10-20); Calcium 7.7 mg/dl (8.6-10.3); Magnesium 1.8 mg/dl (1.7-2.4); Potassium 3.5 mmol/L (3.5-5.1)
[2024-06-23 08:25] VITALS: BP 166/74; PULSE 62; TEMP 98.8; O2SAT 96
[2024-06-23] MEDS: POTASSIUM CHLORIDE CRTAB 20 MEQ TABCR PO SCH (08:31)
[2024-06-23] MEDS: amLODIPine BESYLATE 5 MG TAB PO SCH (08:32)
[2024-06-23] MEDS ORDERED: FUROSEMIDE 20 MG TAB PO SCH (09:00)
--- NOTE | 2024-06-23 10:47 | Discharge Summary ---
Discharge Summary Date of Service June 23, 2024 Principal Dx & Hospital Course #1 = Principal Diagnosis (1) Incarcerated ventral hernia: (2) Mass of head of pancreas: (3) DVT (deep venous thrombosis): (4) PAF (paroxysmal atrial fibrillation): . (5) Diabetes: (6) Chronic kidney disease, stage IV (severe): (7) Hypothyroidism: Plan 79-year-old male with history of pancreas mass, recent DVT/PE, recurrent DVT/PE, CKD, HFpEF, DM 2 who presented with an incarcerated hernia with resultant small bowel obstruction requiring emergency surgical intervention. on 06/14 he underwent incarcerated Ventral Hernia Repair, Converted to Open Small Bowel Resection by Dr Benson tolerating low fiber diet well, danica will be removed at scheduled follow-up with . Marcelino has done well post op pancreatic head mass - He had recent EUS and biopsy with [facility]. Records requested but not available, per family report pancreatic mass is premalignant. Patient has a indwelling bare-metal stent and plastic stent in place. No acute change in management of these Acute blood loss anemia Postoperative --iron deficiency - venofer given 06/17. continue oral iron replacement --apixaban restarted 06/19 --CBC in about a week -acute on chronic HFpEF, Hx CAD, Pacer - earlier in admission he had problems with tachycardia (rapid afib and pat), and he was acutely volume overloaded and required diuresis with IV lasix. - cardiology consulted Last EF 55 to 60% echo 09/2023. - Hx CAD PCI 2012, pacer 05/07 CHB 2014. Aspirin 81mg resumed. EKG: Dual paced, no acute ischemic changes. Currently euvolemic on oral lasix - 40 mg po q48h, needing increased potassium replacement, please follow weight/edema and check BMP within about a week for potassium, renal function --Heart rates controlled on metoprolol 100 mg bid --continue amlodipine and resuming losartan at discharge --jardiance currently held - try resumption once fully recovered postop --follow up with [facility] --hypokalemia - low normal today at 3.5. Increased potassium replacement to 40 meq in AM and 20 in PM. Monitor DM type 2 --had stress dose steroids this admission, stopped 06/22 so BG may be falling --currently glargine 10u bid and premeal aspart --mounjaro and jardiance held because of SBO CKD stage 3-4 --baseline Cr has been 2-2.5 since 2021 based on old labs here. Was 1.96 at admission, stable --since then Cr has actually decreased, today 1.38 which is best it has been since 2020. --resume ARB --jardiance held as above DVT/PE Last right lower extremity DVT noted 05/2024 --continue apixaban Cognitive impairment - family has noticed since last summer following a hospitalization for HHS Ready for dc to SNF for rehab. Previously at [facility] Updated and brother at bedside on 06/22 Notes For Next Care Provider BMP CBC within a week Medication Changes From Visit metoprolol increased lasix dose changed potassium increased jardiance and mounjaro currently held insulins adjusted Admission HPI Per Admitting Provider Gerry a 79-year-old male patiently admitted 05/20/2024 - 05/29/2024 for left forearm hematoma on aspirin/apixaban, CKD 4, pancreatic head mass not able to follow-up with MRCP due to pacemaker compatibility who presents with suspected incarcerated hernia. He does have a history of hypercoagulable state with chronic right lower extremity DVT and extensive bilateral PE 11/2021. In the setting of his left forearm hematoma 05/2024 did have Eliquis transiently held and then resumed 05/23/2024. Again has underlying concern for possible pancreatic head mass and malignancy and was pending follow-up for EGD/EUS at [facility]. Report 06/01/2024 shows s/p cholecystectomy, pancreatic septotomy was performed and biliary spincterotomy was performed, cells for cytology obtained from lower third of the main duct, one prophylactic pancreatic stent was placed into the ventral pancreatic duct, 1 covered metal stent was placed in common bile duct. Was recommended for 5 days of prophylactic cipro and follow-up with surgical oncology with pathology pending. Per patient family was told that pancreatic biopsies were precancerous and were pending follow-up with [facility]-on[facility] this coming Wednesday Seen at the bedside in [facility] before he is taken for emergent laparoscopic hernia repair. He reports he has had poor appetite nausea currently felt poorly over the past week. Denies abdominal pain at rest but has pain with any attempted palpation of his abdominal hernia. He denies shortness of breath. He reports he is not very active at baseline, generally just transfers and does not walk significant distances or goes upstairs. With his normal activities he has not had any chest pain, chest pressure, palpitations. Endorses history of CKD which she feels is stable. He feels that his right leg has been a little bit more swollen with the recent blood clot otherwise denies acute leg swelling. He did have his recent biopsy of his pancreatic mass with [facility]. While his intestinal biopsies were normal the pancreatic was reportedly precancerous. He is pending a meeting with oncology this coming week to discuss potential treatments and interventions. During his EUS he did have a bare metal and plastic stent placed which remain in place Medical History: Reviewed Medications: Reviewed Surgical History: Reviewed Family history: Reviewed Allergies: Reviewed Social History: Reviewed Code Status: Full code pending surgery Discharge Exam PHYSICAL EXAMINATION Last 24h vital signs reviewed, see documentation in flowsheet General: napping, awoke easily HEENT: Normocephalic, atraumatic, pupils round and equal, sclerae anicteric, no conjunctival injection, moist mucus membranes. . Hard of hearing Lungs: Normal respiratory effort. Clear to auscultation bilaterally. No RRW Heart: Regular rate and rhythm, no murmurs. No JVD Abdomen: Soft, nontender, nondistended. Bowel sounds present. Surgical incisions freshly dressed this AM Extremities: Warm, dry, well-perfused. No extremity edema. right upper extremity hematoma and ecchymosis has resolved Neuro: Alert and oriented x hospital and basic situation, lack of detailed verbal responses unchanged, very hard of hearing, face symmetric, moves 4 extremities well Psych: Normal affect and behavior Discharge Plan Discharge Items Patient Disposition: Transfer Group Home Fac Reason For Visit: INCARCERTED HERNIA, SBO Discharge Diagnosis: laparoscopic converted to open ventral hernia repair and small bowel resection Activity: Per Instructions section Lifting: No more than 10 pounds Bathing Comment: you can sponge bath only, No soaking in pools/baths Exercise/Sports: Wait until after follow-up appointment Driving/Machine Use: no driving while on narcotics for pain Non-emergency contact: Surgeon Call non-emergency contact if: your symptoms worsen, your pain is not controlled, you have a fever, your temperature is above 101.5, your wound has increased redness, your wound has increased drainage and your wound pain has increased Follow-up/Referrals: Og Benson, [Surgeon] - (call office for follow in 1-2 weeks ) Myrna Sy [Primary Care Provider] - Diet: Low Fiber Addtl Attending Provider Instructions: PT and OT evaluate and treat CBC and BMP in about a week. Blood glucose checks tid qAC Continue glargine and premeal aspart/lispro correctional dosing (has been getting 6-11 units aspart premeal) Monitor weight 3x a week, adjust diuretics accordingly Follow up with [facility] as planned for pancreas mass Follow up with [facility] cardiology for heart failure, afib Follow up with surgeon Dr. Benson as scheduled 07/03 You have danica that will need to come out at your follow up appointment. Please keep surgical area clean and dry. You can apply gauze and tape for comfort, Change your dressing daily. Pending Studies at Discharge: Yes Studies:: surgical pathology Stand-Alone Forms: My [facility] Skilled Items Patient informed of condition?: Yes DNR: No Discharge Level of Care: Skilled Communicable Disease: No Discharge Prognosis: Improving Lines: None Urinary Catheter: No Medications and DC Order Prescriptions: New polysaccharide iron complex [Ferrex 150] 150 mg iron Capsule 150 mg PO DAILY Qty: 0 0RF insulin glargine [Lantus U-100 Insulin] 100 unit/mL Solution 10 unit SC BID Qty: 0 0RF miconazole nitrate [Desenex] 2 % Powder 1 applic EXT PRN PRNQty: 0 0RF acetaminophen [Tylenol Extra Strength] 500 mg Tablet 500 mg PO Q8 Qty: 0 0RF metoprolol succinate 50 mg Tablet Extended Release 24 Hr 100 mg PO BID Qty: 0 0RF potassium chloride 20 mEq Tablet,Er Particles/Crystals 20 meq PO HS Qty: 0 0RF furosemide 40 mg Tablet 40 mg PO Q2D Qty: 0 0RF potassium chloride 20 mEq Tablet,Er Particles/Crystals 40 meq PO QAM Qty: 0 0RF Continued (DME) FreeStyle Maisha 2 Sensor Kit See Rx Instructions .Route Qty: 2 11RF Rx Instructions: Change every 14 days pantoprazole 40 mg tablet,delayed release (DR/EC) 40 mg PO QAM nitroglycerin 0.4 mg tablet, sublingual 0.4 mg sublingual Q5M PRN (Reason: Chest Pain) Rx Instructions: do not exceed 3 doses per episode ondansetron 4 mg tablet,disintegrating 4 mg PO Q8H PRN (Reason: Nausea And Vomiting) (DME) lancets [OneTouch Delica Plus Lancet] 30 gauge misc See Rx Instructions .ROUTE .MEDSUPPLY Rx Instructions: Test blood sugar once daily PRN (DME) FreeStyle Maisha 2 [place] Misc See Rx Instructions .Route Rx Instructions: As directed Eliquis 5 mg tablet 5 mg PO BID Qty: 180 1RF Hold Instructions: Resume on 06/03/24. Rx Instructions: 5 mg po BID (DME) pen needle, diabetic [BD Ultra-Fine Micro Pen Needle] 32 gauge x 1/4" needle See Rx Instructions .Route Qty: 100 3RF Rx Instructions: use twice daily aspirin 81 mg Tablet,Delayed Release (Dr/Ec) 81 mg PO QAM Hold Instructions: Resume on 06/03/24. amlodipine [Norvasc] 5 mg Tablet 5 mg PO QAM Qty: 30 2RF insulin lispro [Admelog SoloStar U-100 Insulin] 100 unit/mL insulin pen 1 sliding scale dose subcut USEASDIRECTD Qty: 0 0RF Rx Instructions: SS before meals and at Bedtime: 151-200=4 units; 201-250=6 units; 251-300=10 units; 301-350 = 12 units; 351-400= 15 units; 401 or greater give 15 units and call physician. atorvastatin 80 mg tablet 80 mg PO HS calcitriol 0.5 mcg capsule 0.5 mcg PO QAM sertraline 50 mg tablet 75 mg PO QAM levothyroxine 112 mcg capsule 112 mcg PO QAM magnesium oxide 400 mg magnesium tablet 400 mg PO QAM losartan 50 mg tablet 50 mg PO QAM Changed sennosides [Senokot] 8.6 mg Tablet 17.2 mg PO QAM PRN (Reason: constipation) Qty: 60 2RF polyethylene glycol 3350 [ClearLax] 17 gram Powder In Packet 17 g PO DAILY PRN (Reason: constipation) Qty: 0 0RF Held Jardiance 25 mg tablet 25 mg PO DAILY Hold Instructions: Resume on 07/21/24. held for JUANPABLO, SBO, consider trialing again Mounjaro 5 mg/0.5 mL pen injector 5 mg SUBCUT WK Hold Instructions: Resume on 07/21/24. held for surgery, SBO. Rx Instructions: Wed Discontinued (DME) sharps bin-insulin syrin-needl 1 mL 30 gauge x 5/16" syringe See Dose Instructions .ROUTE .MEDSUPPLY Qty: 1 Rx Instructions: As directed metoprolol succinate 50 mg tablet extended release 24 hr 50 mg PO BID Qty: 60 2RF potassium chloride 10 mEq tablet extended release 10 meq PO QAM gabapentin 300 mg capsule 300 mg PO HS furosemide 20 mg tablet 10 mg PO QAM terazosin 10 mg capsule 10 mg PO QAM Rx Instructions: TAKE 1 CAPSULE DAILY cholestyramine-aspartame [Prevalite] 4 gram Powder In Packet 1 ea PO BID Qty: 60 0RF acetaminophen 325 mg Tablet 650 mg PO Q6H PRN (Reason: pain/temp>100) ciprofloxacin HCl 500 mg tablet 500 mg PO BID Ear Wax Drops 6.5 % Drops 5 drp OTIC (EAR) BID Rx Instructions: x4 days ciprofloxacin-dexamethasone 0.3-0.1 % drops,suspension 4 drp OTL BID Rx Instructions: for 1 week vjhmawfx-fhkzzfqur-juvwkhbibx 1.75 mg-10,000 unit-0.025mg/mL drops 2 drp OPB TID Rx Instructions: apply to affected ear insulin degludec [Tresiba FlexTouch U-100] 100 unit/mL (3 mL) Insulin Pen 40 unit SUBCUT DAILY Discharge Orders: Discharge Order (Routine); Ordered 06/23/24 Ordered By: Bonnie Fulton/Other Patient Handouts: Low-Fiber Diet Admission Data Admit Date/Time: 06/14/24 15:42 Attending Provider: Bonnie Lynch Admit Provider: Raza Carias Primary Care Provider: Myrna Sy Hall Other Providers: [place],[facility]; [facility]; Raza Carias; Og Benson Other Interventions: Discharge Summary Assessment (RN) Last Done: 06/23/24 10:07 Hospital Stay Data Consultations 06/14/24 13:41 Consult General Surgery Routine ED Decision to Admit Stat 06/16/24 16:51 Consult Cardiology Routine Procedures Performed Operation Date: 06/14/24 10:15 Actual Procedures s , Incarcerated Ventral Hernia Repair(Not Applicable) - Og Benson DO p Converted to Open Small Bowel Resection(Not Applicable) - Og Benson DO s Laparoscopic Converted to Open(Not Applicable) - Og Benson DO Diagnostic Imagining Performed 06/14/24 11:18 CT abd pelvis IV con only Stat Pending Results Patient Have Any Pending Studies at Discharge: Yes Discharge Instructions Given to Patient (Per Discharging Provider) PT and OT evaluate and treat CBC and BMP in about a week. Blood glucose checks tid qAC Continue glargine and premeal aspart/lispro correctional dosing (has been getting 6-11 units aspart premeal) Monitor weight 3x a week, adjust diuretics accordingly Follow up with [facility] as planned for pancreas mass Follow up with [facility] cardiology for heart failure, afib Follow up with surgeon Dr. Benson as scheduled 07/03 You have danica that will need to come out at your follow up appointment. Please keep surgical area clean and dry. You can apply gauze and tape for comfort, Change your dressing daily. Total Time Total Time Spent Total Time Spent (In Minutes): I personally spent: 45 minutes today on clinical care activities including: reviewing chart notes and vital signs reviewing labs discussion with point of care specialist examining and counseling the patient writing orders writing prescriptions, discharge instructions documentation Coding Level of Care Code 05648 INP/OBS DISCH >30 MIN Diagnoses Incarcerated ventral hernia K43.6 Mass of head of pancreas K86.89 DVT (deep venous thrombosis) I82.409 PAF (paroxysmal atrial fibrillation) I48.0 Diabetes E11.9 Chronic kidney disease, stage IV (severe) N18.4 Hypothyroidism, unspecified type E03.9 Hypothyroidism type: unspecified
[2024-06-23] MEDS ORDERED: POTASSIUM CHLORIDE CRTAB 20 MEQ TABCR PO SCH (21:00)
[2024-06-24] MEDS ORDERED: FUROSEMIDE 40 MG TAB PO SCH (09:00)
== END 2024-06-23 11:44 | DRG 329 ==
LOC: ED 10:45 → OR 13:54 → SUATTDRO 15:42 → 2S 15:42 → 3E 06-22 19:17